=== PATIENT | male | born 1960 | race Caucasian/White ===

== ENCOUNTER → 2016-07-30 | Outpatient (CLI) | payer OTHER, BC ==
[~2016-07-30] MED LIST: ASPI-428 PO; ATOR-22 PO; BENZ100C18 PO; CANA1TAB3 PO; CARV12.52 PO; CRG125 PO; FERROUS SULFATE PO; FRRS300 PO; FURO20TA PO; IBUP-103 PO; INSDGI SC; INSDGIPEN SC; KETO10TA PO; LEVO-366 PO; LISI-725 PO; LPT/40 PO; LSX40 PO; METF-384 PO; MULT-618 PO; NTRGSL/4 UT; OXYC-57 PO; SPIR25TA PO; SPR25 PO
--- NOTE | 2016-07-30 15:44 | DIAGNOSTIC IMAGING REPORT ---
MRI OF THE LEFT SHOULDER CLINICAL HISTORY: Left shoulder pain. COMPARISON STUDY: Radiograph of left shoulder dated 07/25/2016. TECHNIQUE: MRI of the left shoulder was performed utilizing various T1 and T2 weighted sequences in the axial, sagittal, coronal planes. IV contrast was not administered for this examination. FINDINGS: Rotator cuff: There is tendinopathy with full-thickness rupture and retraction of the supraspinatus tendon. The tendon is retracted by approximately 5 cm. There is also full-thickness rupture with retraction of the infraspinatus tendon. There is tendinopathy with high-grade partial-thickness tearing of the subscapularis tendon. No definite full-thickness tear is seen. The teres minor tendon is Intact. There is subacromial and subdeltoid bursal fluid. Productive degenerative change is seen at the acromioclavicular joint. Biceps tendon: There is tendinopathy with rupture of the long head of the biceps tendon which is not well-visualized. This may be medially dislocated. Labrum: There is degenerative circumferential tearing of the labrum. Shoulder joint: There is a small joint effusion. Arthritic change with mild marrow edema is seen in the greater tuberosity of the humeral head. The humeral head is superiorly subluxed. There is only mild degenerative thinning of the articular cartilage of the superior glenoid. Musculature and soft tissues: There is mild intramuscular edema seen within the bodies of teres minor, and for spine on this, an supraspinatous. No definite atrophy is seen. IMPRESSION: 1. There is full-thickness rupture with approximately 5 cm of retraction involving the supraspinatous and infraspinatus tendons. There is associated superior subluxation of the humeral head. 2. There is high-grade partial-thickness tearing of the subscapularis tendon. 3. There is tendinopathy with rupture of the long head of the biceps tendon which may be dislocated. 4. There is circumferential degenerative labral tearing. 5. Arthritic change and joint effusion as above. 6. There is mild intramuscular edema involving the supraspinatous, infraspinatus, and teres minor. No definite atrophy is identified. Electronically signed by: Wallace Alexander M.D. 07/30/2016 3:42 PM Dictated Date/Time: 07/30/2016 3:26 PM
== END | disposition home or self-care (01) ==
LOC: C.MRIBC 14:08
DX: S46.012A Strain of muscle(s) and tendon(s) of the rotator cuff of left shoulder, initial encounter (principal); M66.822 Spontaneous rupture of other tendons, left upper arm; M75.92 Shoulder lesion, unspecified, left shoulder; X58.XXXA Exposure to other specified factors, initial encounter

== ENCOUNTER 2016-08-19 10:28 | Day surgery (SDC) | payer OTHER, BC ==
[2016-08-09 12:38] VITALS: BMI 34.0
--- NOTE | 2016-08-09 13:04 | PAT Medication Instructions ---
Service Date Aug 09, 2016. Current Home Medication List Aspirin (Ecotrin Low Strength), 81 MG PO QPM Atorvastatin (Lipitor), 40 MG PO QPM Canagliflozin (Invokana), 300 MG PO QAM Carvedilol (Coreg), 12.5 MG PO BID Furosemide (Lasix), 20 MG PO QAM Insulin Glargine (Lantus), 16 UNITS SC QPM Lisinopril (Zestril), 20 MG PO QAM Metformin Hcl (Glucophage), 1,000 MG PO BID Multiple Vitamins W/ Minerals (Centrum Silver Ultra Mens), 2 TABS PO QAM Nitroglycerin (Nitrostat), 0.4 MG UT PRN Spironolactone (Aldactone), 25 MG PO QAM [Ferrous Sulfate], 65 MG PO QAM Medication Instructions For Your Scheduled Surgery - Continue as directed: Nitroglycerin (Nitrostat), 0.4 MG UT PRN - Hold the following medications 48 hours prior to surgery: Metformin Hcl (Glucophage), 1,000 MG PO BID - Hold the following medications the morning of surgery: Spironolactone (Aldactone), 25 MG PO QAM [Ferrous Sulfate], 65 MG PO QAM Furosemide (Lasix), 20 MG PO QAM Lisinopril (Zestril), 20 MG PO QAM Multiple Vitamins W/ Minerals (Centrum Silver Ultra Mens), 2 TABS PO QAM Nitroglycerin (Nitrostat), 0.4 MG UT PRN Canagliflozin (Invokana), 300 MG PO QAM - Take the following medications the morning of surgery with a sip of water OTHERWISE NOTHING TO EAT OR DRINK AFTER MIDNIGHT: Carvedilol (Coreg), 12.5 MG PO BID - Take the following medications as scheduled the night before surgery: Aspirin (Ecotrin Low Strength), 81 MG PO QPM Insulin Glargine (Lantus), 16 UNITS SC QPM Atorvastatin (Lipitor), 40 MG PO QPM Carvedilol (Coreg), 12.5 MG PO BID If you have any questions please call us at [phone] or [phone] or [phone]
[2016-08-09 14:17] LABS: BASO % 0.3 %; BASO ABS # 0.03 K/uL (0-0.2); COMPLETE YES; EOS % 1.8 %; HEMATOCRIT 37.5 % (42-52); IG% 0.4 %; LYMPH % 22.6 %; LYMPH ABS # 2.16 K/uL (1.2-3.4); MEAN CELL VOLUME 87.6 fL (80-100); MEAN CORPUSCULAR HEMOGLOBIN 29.7 pg (25-34); MEAN CORPUSCULAR HGB CONC 33.9 g/dl (32-36); MEAN PLATELET VOLUME 9.5 fL (7.4-10.4); MONO % 9.4 %; NEUT % 65.5 %; PLATELET COUNT 217 K/uL (130-400); RED BLOOD COUNT 4.28 M/uL (4.7-6.1); WHITE BLOOD COUNT 9.57 K/uL (4.8-10.8)
[2016-08-09 14:31] LABS: PARTIAL THROMBOPLASTIN RATIO 1.1; PROTHROMBIN TIME (PATIENT) 10.8 SECONDS (9.0-12.0)
[2016-08-12 14:47] VITALS: BMI 34.0
[~2016-08-19] VITALS: Ht 185.4 cm; Wt 117.3 kg
--- NOTE | 2016-08-19 07:24 | HISTORY & PHYSICAL EXAMINATION ---
DATE OF ADMISSION: 08/19/2016 CHIEF COMPLAINT: Large left rotator cuff tear. 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 On 07/25/2016, he injured his left shoulder while at work. He said he felt a pop in his shoulder and having difficulty doing any forward elevation. He denies any shoulder pain or weakness prior to the work related incident. He reported the incident that had an MRI. The MRI showed a large retracted possibly chronic rotator cuff tear and he presented to my office for a rotator cuff repair. After examining him and talk with him, I felt it is reasonable to proceed with arthroscopic rotator cuff repair and possible superior capsular reconstruction. He understands the risks, benefits, alternatives to the procedure and has elected to proceed. PAST MEDICAL HISTORY: Significant for congestive heart failure, insulin-dependent diabetes, hyperlipidemia, Lyme's disease that was treated in 2003, and hypertension. PAST SURGICAL HISTORY: Denies. ALLERGIES: None. MEDICATIONS: Include metformin, insulin, lisinopril, spironolactone, aspirin, carvedilol, and Invokana. FAMILY HISTORY: Noncontributory. SOCIAL HISTORY: The patient is single and lives alone. He rarely drinks. He is very active. REVIEW OF SYSTEMS: He complains of left shoulder pain. All other pertinent review of systems are negative. PHYSICAL EXAMINATION: GENERAL: He is awake, alert and oriented x3. He is in no apparent distress. He is very pleasant. HEENT: Pupils equal, round and reactive to light. Extraocular motion intact. Oral mucosa is pink and moist. HEART: Regular rate per radial pulse. LUNGS: Katie symmetrically bilaterally with no audible breath sounds. ABDOMEN: Soft, nontender, nondistended. MUSCULOSKELETAL: Actively, he only has about 40 degrees of forward elevation and 40 degrees of abduction. He has 3/5 muscle strength with full can testing and 3/5 muscle strength with external rotation. Negative belly press test. Positive bear hug test. He has pain in the subacromial space. IMAGING DATA: MRI of the shoulder does show a large possibly chronic rotator cuff tear of the right shoulder. There is retraction back to the area of the glenoid. There is [id number] fat atrophy of supraspinatus and infraspinatus muscle bellies. There is also mild arthritis of the glenohumeral joint. X-rays of the shoulder do show the humeral head is fairly well centered within the glenoid. There is a small inferior humeral osteophyte indicative of mild arthritis. IMPRESSION: Large left rotator cuff tear. PLAN: We will do an arthroscopic rotator cuff repair versus superior capsular reconstruction. By the quality of the tissue, I will be able to tell whether this was an acute or more of a chronic injury or an acute on chronic injury. Postoperatively, he will be placed in an arm sling and discharged to home on oral pain medications.
[~2016-08-19 10:28] MED LIST changes: +ACETAMINOPHEN 500 MG TAB PO SCH; -ATOR-22 PO; -BENZ100C18 PO; +BUPIVACAINE 0.5 % 5 MG/1 ML PF 10ML VIAL ONE; +CEFAZOLIN 2000 MG/60 ML D5W 60 ML IV SCH; -CRG125 PO; +DEXAMETHASONE SOD INJ 4 MG/ML VIAL ONE; +FAMOTIDINE 20 MG TAB PO SCH; -FRRS300 PO; +GABAPENTIN 300 MG CAP PO SCH; -IBUP-103 PO; -INSDGIPEN SC; -KETO10TA PO; +LACTATED RINGER'S 1000ML 1,000 ML IV SCH; +LACTATED RINGER'S 1000ML IV SCH; -LEVO-366 PO; -LSX40 PO; -OXYC-57 PO; -SPR25 PO
[2016-08-19 11:18] VITALS: BP 141/96; PULSE 74; TEMP 36.6; O2SAT 97; Ht 185.4 cm; Wt 117.3 kg
[2016-08-19] MEDS ORDERED: BUPIVACAINE/EPINEPHRINE 0.5% MPF 1:200,000 30 ML VIAL ONE (11:32)
[2016-08-19] MEDS ORDERED: ROCURONIUM BROMIDE 10 MG/ML 5 ML VIAL ONE ×2 (11:46→13:35)
[2016-08-19] MEDS ORDERED: NEOSTIGMINE METHYLSULFATE 5 MG/5 ML SYR ONE (11:46)
[2016-08-19] MEDS ORDERED: DEXAMETHASONE SOD INJ 4 MG/ML VIAL ONE (11:46)
[2016-08-19] MEDS ORDERED: ONDANSETRON INJ 2 MG/ML 2 ML VIAL ONE (11:46)
[2016-08-19] MEDS ORDERED: GLYCOPYRROLATE INJ 0.2 MG/ML VIAL ONE (11:46)
[2016-08-19] MEDS ORDERED: LIDOCAINE HCL 2% 2 ML VIAL (20MG/ML) ONE (11:46)
[2016-08-19] MEDS ORDERED: PROPOFOL IV EMULSION 10 MG/ML 20 ML VIAL IV ONE (11:46)
[2016-08-19] MEDS ORDERED: MIDAZOLAM HCL 1 MG/ML 2ML VIAL ONE (11:47)
[2016-08-19] MEDS ORDERED: FENTANYL CITRATE INJ 50 MCG/1 ML 2 ML VIAL ONE (11:47)
[2016-08-19] MEDS ORDERED: BUPIVACAINE 0.25% 30 ML VIAL ONE (11:58)
--- NOTE | 2016-08-19 12:52 | History & Physical Bridge Note ---
H&P Re-Evaluation Bridge Note: I have examined the patient, reviewed the History & Physical and in the interval since the performance of the History & Physical I have noted the following changes of clinical significance: No changes noted
[2016-08-19] MEDS ORDERED: LARYING-O-JET KIT (LTA) EXT ONE ×2 (13:38)
[2016-08-19] MEDS ORDERED: ONDANSETRON INJ 2 MG/ML 2 ML VIAL IV PRN (13:45)
[2016-08-19] MEDS ORDERED: FENTANYL CITRATE INJ 50 MCG/1 ML 2 ML VIAL IV PRN (13:45)
[2016-08-19] MEDS ORDERED: ATROPINE SULFATE 0.1 MG/ML 5ML SYR IV PRN (13:45)
[2016-08-19] MEDS ORDERED: KETOROLAC TROMETHAMINE 30 MG/ML VIAL IV. PRN (13:45)
[2016-08-19] MEDS ORDERED: LABETALOL HCL IV 5 MG/ML 20ML IV PRN (13:45)
[2016-08-19] MEDS ORDERED: SODIUM CHLORIDE 0.9% 1000ML 1,000 ML IV SCH (15:35)
[2016-08-19] MEDS ORDERED: OXYC-57 PO (15:38)
[2016-08-19] MEDS ORDERED: KETO10TA PO (15:38)
--- NOTE | 2016-08-19 15:41 | Discharge Instructions ---
Discharge Instructions Admission Reason for Admission: Left Shoulder Full Thickness Rotator Cuff Tear Discharge Discharge Diagnosis / Problem: left shoulder rotator cuff tear Discharge Goals Goal(s): Decrease discomfort, Improve function, Therapeutic intervention Activity Recommendations Activity Limitations: per Instructions/Follow-up section limited use of left arm. sling x 6 weeks. no physical therapy yet Instructions / Follow-Up Instructions / Follow-Up MEDICATIONS: * Resume previous medications unless instructed otherwise by your surgeon. * Always take pain medication on a full stomach or with food to avoid upset stomach. * Do not drink alcohol or drive while taking narcotics. * Ibuprofen or Tylenol may be taken if narcotic not needed. no ibuprofen while taking toradol SPECIAL CARE INSTRUCTIONS: __ None _x_ Keep extremity iced x 48 hours; apply ice 20-30 minutes 8-10 times/day. May remove at night. __ Sling __24 hrs/day __ Remove at night _x_ Shoulder Immobilizer _x_ 24 hrs/day __ Remove at night _x_ Dressing __ Maintain until seen in office, may shower with plastic over site _x_ Remove dressings in 48 hours and then may shower _x_ Cover incisions with band-aids after showering __ Do not remove steri-strips Call physician if chills or temperature rises above 102 degrees or pain unrelieved by prescribed pain medications at . follow up in 2 week s . Current Hospital Diet Patient's current hospital diet: Discharge Diet Recommended Diet: Diabetes Type 2 Diet Procedures Procedures Performed: Left Shoulder Arthroscopy Large Rotator Cuff Repair,Chromioplasty. Pending Studies Studies pending at discharge: no Medical Emergencies . Who to Call and When: Medical Emergencies: If at any time you feel your situation is an emergency, please call 911 immediately. . Non-Emergent Contact Non-Emergency issues call your: Primary Care Provider, Surgeon . "Provider Documentation" section prepared by Jared Stockton. VTE Core Measure Inpt VTE Proph given/why not?: Treatment not indicated
[2016-08-19] MEDS ORDERED: OXYCODONE/ACETAMINOPHEN 5-325 TAB PO PRN ×2 (15:45)
--- NOTE | 2016-08-19 16:03 | Anesthesiology Progress Note ---
Anesthesia Post Op Note Date & Time Aug 19, 2016 at 16:03 Vital Signs Pain Intensity: 0 Vital Signs Past 12 Hours Date Time Temp Pulse Resp B/P Pulse Ox O2 Delivery O2 Flow Rate FiO2 08/19/16 15:31 36.5 74 16 125/76 100 Mask 10 08/19/16 11:18 36.6 74 18 141/96 97 Room Air Notes Mental Status: alert / awake / arousable, participated in evaluation Pt Amnestic to Procedure: Yes Nausea / Vomiting: adequately controlled Pain: adequately controlled Airway Patency, RR, SpO2: stable & adequate BP & HR: stable & adequate Hydration State: stable & adequate Anesthetic Complications: no major complications apparent
[2016-08-19 16:15] VITALS: BP 118/68; PULSE 62; TEMP 36.8; O2SAT 94
--- NOTE | 2016-08-19 16:18 | OPERATIVE REPORT ---
DATE OF OPERATION: 08/19/2016 PREOPERATIVE DIAGNOSIS: Acute on chronic rotator cuff tear of the left shoulder. POSTOPERATIVE DIAGNOSIS: Same. PROCEDURE: Left shoulder arthroscopy with extensive debridement, acromioplasty and rotator cuff repair. SURGEON: Dr. Marvin Macedo. LEARNING DESIGN SPECIALIST: Benjamin Stockton PA-C, whose assistance was necessary for positioning the arm and helping with instrumentation. ANESTHESIA: General with a left interscalene nerve block. COMPLICATIONS: None. CONDITION: Stable to PACU. INDICATIONS: Bennett is a pleasant 55-year-old male who was at work when he felt a pop in his left shoulder. He had significant pain and inability to raise his arm. He never had any shoulder pain before the incident. He came to my office. MRI and clinical examination were diagnostic for a large retracted rotator cuff tear. He elected to undergo arthroscopy. OPERATION AND FINDINGS: On 08/19/2016 he arrived at [facility] for the above procedure. He was seen in the preoperative holding area and the operative extremity was identified and signed. He was given a preoperative antibiotic, taken back to the operating room, laid on the table in supine position and put under general anesthesia. He was then put into the beachchair position. The left shoulder was prepped and draped in sterile fashion. Time-out was done and the patient and operative extremity was properly identified. A scope was introduced in the posterior portal. Diagnostic arthroscopy showed no cartilage damage to the humeral head or the glenoid. There was some fraying of the anterior labrum. The biceps tendon was absent from a traumatic tenotomy. There was a tear of the entire supraspinatus and infraspinatus. Teres minor and subscapularis were intact. A lateral portal was made and a shaver was used to start an extensive debridement of the subacromial and subdeltoid space. Cautery was used to tease the coracoacromial ligament off the undersurface of the acromion and a 5-0 chelsea was used to complete an acromioplasty of a Bigliani type 3 acromion. A shaver was used to remove any excess debris. Attention was turned to the rotator cuff. It was retracted back almost to the level of the glenoid. The tissue quality was still fairly good. I believe this was more of an acute on chronic tear. The infraspinatus came down to the tuberosity rather easily, but there was a lot of tension on the supraspinatus. The fact that there was no glenohumeral arthritis and the tissue quality was still fairly good makes me think it is more of an acute tear; however, the fact the supraspinatus was retracted and difficult to bring down makes me think that portion may have been a chronic tear. Two additional lateral portals were made and Ying cannulas were placed in each of the lateral portals. The greater tuberosity was repaired with a ring curette and a microfracture. The rotator cuff was then fixed with an Arthrex suspension bridge configuration with a 5.5 and 4.75 mm BioComposite SwiveLock suture anchors placed along the medial row. All anchors were loaded with 2 FiberWires and 2 FiberTapes. All sutures were passed through the tendon at the anticipator articular margin. A FiberTape from each anchor was brought down to 1 of 3 lateral row SwiveLock suture anchors. This gave a nice knotless suspension bridge repair. The remaining stay sutures were tied across anchor to each other to hold down the medial row. I was able to get an anatomic repair. Multiple pictures were taken. The scope was put back into the glenohumeral joint and the articular margin of the rotator cuff had been restored. Arthroscopic instruments were removed from the shoulder. Portal sites were closed with 3-0 nylon. He was then placed in a soft dressing and abduction arm sling. He was then extubated, transferred to a [facility] and taken to the postanesthesia care unit in stable condition. He tolerated the procedure well. I attest to the content of the Intraoperative Record and any orders documented therein. Any exceptio ns are noted below.
[2016-08-19 16:45] VITALS: BP 133/78; PULSE 63; TEMP 36.4; O2SAT 93
[2016-08-19 17:14] VITALS: BP 151/82; PULSE 69; TEMP 36.6; O2SAT 95
== END 2016-08-19 17:19 | disposition home or self-care (01) ==
LOC: C.ACU 10:28
PROVIDERS: ATTEND Orthopaedic Surgery
DX: S46.012A Strain of muscle(s) and tendon(s) of the rotator cuff of left shoulder, initial encounter (principal); X58.XXXA Exposure to other specified factors, initial encounter; Y99.0 Civilian activity done for income or pay; I50.9 Heart failure, unspecified; E10.9 Type 1 diabetes mellitus without complications; E78.5 Hyperlipidemia, unspecified; I10 Essential (primary) hypertension; Z86.19 Personal history of other infectious and parasitic diseases; E78.00 Pure hypercholesterolemia, unspecified; E66.9 Obesity, unspecified; K21.9 Gastro-esophageal reflux disease without esophagitis

== ENCOUNTER 2016-11-03 15:51 | Emergency (ER) | payer BC, OTHER ==
[~2016-11-03] VITALS: Ht 182.9 cm; Wt 116.3 kg
[~2016-11-03 15:51] MED LIST changes: -ACETAMINOPHEN 500 MG TAB PO SCH; -BUPIVACAINE 0.5 % 5 MG/1 ML PF 10ML VIAL ONE; -CEFAZOLIN 2000 MG/60 ML D5W 60 ML IV SCH; -DEXAMETHASONE SOD INJ 4 MG/ML VIAL ONE; -FAMOTIDINE 20 MG TAB PO SCH; -GABAPENTIN 300 MG CAP PO SCH; -LACTATED RINGER'S 1000ML 1,000 ML IV SCH; -LACTATED RINGER'S 1000ML IV SCH; +OXYC-57 PO
[2016-11-03 15:54] VITALS: TEMP 37.2; Ht 182.9 cm; Wt 116.3 kg
[2016-11-03] MEDS ORDERED: FRRS300 PO (16:16)
[2016-11-03 16:40] LABS: BASO % 0.4 %; BASO ABS # 0.03 K/uL (0-0.2); COMPLETE YES; EOS % 1.2 %; HEMATOCRIT 38.1 % (42-52); IG% 0.3 %; LYMPH % 16.3 %; LYMPH ABS # 1.13 K/uL (1.2-3.4); MEAN CORPUSCULAR HEMOGLOBIN 29.8 pg (25-34); MEAN CORPUSCULAR HGB CONC 33.9 g/dl (32-36); MEAN PLATELET VOLUME 9.5 fL (7.4-10.4); MONO % 14.8 %; PLATELET COUNT 203 K/uL (130-400); RED BLOOD COUNT 4.33 M/uL (4.7-6.1); WHITE BLOOD COUNT 6.94 K/uL (4.8-10.8)
[2016-11-03] MEDS ORDERED: HYDROCODONE/HOMATROPINE SYRUP 5MG/1.5MG 5ML UDP PO STA (16:57)
[2016-11-03] MEDS ORDERED: SODIUM CHLORIDE 0.9% 500ML 500 ML IV STA (16:57)
[2016-11-03 16:58] LABS: BUN/CREATININE RATIO 17.9 (10-20); CALCIUM 8.5 mg/dl (8.5-10.1); CREATININE 1.1 mg/dl (0.60-1.40); POTASSIUM 4.2 mmol/L (3.5-5.1)
--- NOTE | 2016-11-03 17:15 | DIAGNOSTIC IMAGING REPORT ---
CHEST 2 VIEWS ROUTINE CLINICAL HISTORY: Cough and shortness of breath. COMPARISON STUDY: Chest radiograph January 18, 2016. FINDINGS: Lung volumes are at the lower limits of normal. There is no consolidation or evidence of pulmonary edema. Cardiomediastinal silhouette is within normal limits. IMPRESSION: No acute cardiopulmonary findings. Electronically signed by: Kael Bryson M.D. 11/03/2016 5:13 PM Dictated Date/Time: 11/03/2016 5:12 PM
[2016-11-03 18:08] LABS: INFLUENZA A PCR Neg for Influ A (NEG); INFLUENZA B PCR Neg for Influ B (NEG)
[2016-11-03] MEDS ORDERED: LEVO-366 PO (18:32)
[2016-11-03] MEDS ORDERED: BENZ100C18 PO (18:34)
[2016-11-03 18:37] VITALS: BP 132/86; PULSE 96; O2SAT 96
[2016-11-03] MEDS ORDERED: LEVOFLOXACIN 250 MG TAB PO ONE (18:45)
--- NOTE | 2016-11-03 22:55 | EMERGENCY ROOM VISIT NOTE ---
History Report prepared by Claudia: Lyle Palmer Under the Supervision of: Dr. Reese Rivero D.O. First contact with patient: 15:57 Chief Complaint: ILLNESS Stated Complaint: CONGESTION, DIZZY, CHEST/BACK PAIN History of Present Illness The patient is a 56 year old male with a history of diabetes and CHF who presents to the Emergency Room with complaints of a persistent cough beginning four days prior to arrival. He currently rates his discomfort as a 6/10 in severity. The patient associates intermittent central chest pain, intermittent upper back pain, sorethroat, congestion, bilateral ear pain, intermittent lightheadedness, and intermittent shortness of breath with today's symptoms. He states his symptoms worsen with coughing. The patient notes his chest pain and back pain occurs only with coughing, twisting, and moving. He states his cough is productive with a sutton-renata sputum. The patient notes he saw his PCP yesterday , who did not perform a chest x-ray but was given amoxicillin and nasal spray. He denies a history of asthma, COPD, cancer, and blood clots. The patient notes he had a shoulder surgery in August. He denies being on blood thinners, recent travel, and experiencing recent weight gain. Pt denies headache, change in vision, fevers, nausea, vomiting, diarrhea, calve swelling, coughing up blood , recent trips, pain with urination, and melena. 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 Review of Systems See HPI for pertinent positives & negatives. A total of 10 systems reviewed and were otherwise negative. Past Medical & Surgical Medical Problems: (1) CHF (congestive heart failure) (2) DM (diabetes mellitus) (3) HTN (hypertension) (4) Lyme disease Surgical Problems: (1) History of colonoscopy (2) S/P shoulder surgery Family History Diabetes mellitus FH: heart disease Hypertension Social History Smoking Status: Never Smoker Alcohol Use: none Marital Status: single Housing Status: lives alone Occupation Status: employed Current/Historical Medications Scheduled Aspirin (Ecotrin Low Strength), 81 MG PO QAM Atorvastatin (Lipitor), 40 MG PO QAM Benzonatate (Tessalon Perles), 100 MG PO TID Canagliflozin (Invokana), 300 MG PO QAM Carvedilol (Coreg), 12.5 MG PO BID Ferrous Sulfate (Ferrous Sulfate), 325 MG PO QAM Furosemide (Lasix), 20 MG PO QPM Insulin Glargine (Lantus), 16 UNITS SC QPM Levofloxacin (Levaquin), 500 MG PO DAILY Lisinopril (Zestril), 20 MG PO QAM Metformin Hcl (Glucophage), 1,000 MG PO BID Multiple Vitamins W/ Minerals (Centrum Silver Ultra Mens), 2 TABS PO QAM Nitroglycerin (Nitrostat), 0.4 MG UT PRN Spironolactone (Aldactone), 25 MG PO QAM Scheduled PRN Oxycodone/Acetaminophen 5MG/325MG (Percocet 5MG/325MG), 1-2 TABLETS PO Q6 PRN for Pain Allergies Coded Allergies: No Known Allergies (Unverified , 11/03/16) Physical Exam Vital Signs Date Time Temp Pulse Resp B/P Pulse Ox O2 Delivery O2 Flow Rate FiO2 11/03/16 18:37 96 18 132/86 96 11/03/16 17:25 96 20 133/83 95 Room Air 11/03/16 16:39 102 11/03/16 16:37 Room Air 11/03/16 15:54 37.2 110 20 127/82 95 Room Air Physical Exam GENERAL: sitting up on the edge of bed, dry cough, alert, well appearing, well nourished, no distress, non-toxic EYE EXAM: normal conjunctiva, PERRL and EOM's grossly intact EAR EXAM: TMs clear bilaterally. OROPHARYNX: no exudate, no erythema, lips, buccal mucosa, and tongue normal and mucous membranes are moist NECK: supple, no nuchal rigidity, no adenopathy, non-tender LUNGS: Clear to auscultation. Normal chest wall mechanics HEART: no murmurs, S1 normal and S2 normal CHEST: Reproducible anterior chest wall tenderness on palpation and with twisting and turning. ABDOMEN: abdomen soft, non-tender, normo-active bowel sounds, no masses, no rebound or guarding. BACK: Bilateral thoracic paraspinal tenderness on palpation and with twisting and turning. Back is symmetrical on inspection and there is no deformity. SKIN: no rashes and no bruising UPPER EXTREMITIES: upper extremities are grossly normal. LOWER EXTREMITIES: No pitting edema. Calves are equal bilateral NEURO EXAM: Normal sensorium, cranial nerves II-XII grossly intact, normal speech, no gross weakness of arms, no gross weakness of legs. Medical Decision & Procedures ER Provider Diagnostic Interpretation: Radiology results as stated below per my review and the radiologist's interpretation: CHEST 2 VIEWS ROUTINE CLINICAL HISTORY: Cough and shortness of breath. COMPARISON STUDY: Chest radiograph January 18, 2016. FINDINGS: Lung volumes are at the lower limits of normal. There is no consolidation or evidence of pulmonary edema. Cardiomediastinal silhouette is within normal limits. IMPRESSION: No acute cardiopulmonary findings. Electronically signed by: Kael Bryson M.D. 11/03/2016 5:13 PM Laboratory Results 11/03/16 16:29 Red Blood Count 4.33, Mean Corpuscular Volume 88.0, Mean Corpuscular Hemoglobin 29.8, Mean Corpuscular Hemoglobin Concent 33.9, Mean Platelet Volume 9.5, Neutrophils (%) (Auto) 67.0, Lymphocytes (%) (Auto) 16.3, Monocytes (%) (Auto) 14.8, Eosinophils (%) (Auto) 1.2, Basophils (%) (Auto) 0.4, Neutrophils # (Auto ) 4.65, Lymphocytes # (Auto) 1.13, Monocytes # (Auto) 1.03, Eosinophils # (Auto ) 0.08, Basophils # (Auto) 0.03 11/03/16 16:29 Test 11/03/16 16:20 11/03/16 16:29 Influenza Type A (RT-PCR) Neg for Influ A (NEG) Influenza Type B (RT-PCR) Neg for Influ B (NEG) White Blood Count 6.94 K/uL (4.8-10.8) Red Blood Count 4.33 M/uL (4.7-6.1) Hemoglobin 12.9 g/dL (14.0-18.0) Hematocrit 38.1 % (42-52) Mean Corpuscular Volume 88.0 fL (80-100) Mean Corpuscular Hemoglobin 29.8 pg (25-34) Mean Corpuscular Hemoglobin Concent 33.9 g/dl (32-36) Platelet Count 203 K/uL (130-400) Mean Platelet Volume 9.5 fL (7.4-10.4) Neutrophils (%) (Auto) 67.0 % Lymphocytes (%) (Auto) 16.3 % Monocytes (%) (Auto) 14.8 % Eosinophils (%) (Auto) 1.2 % Basophils (%) (Auto) 0.4 % Neutrophils # (Auto) 4.65 K/uL (1.4-6.5) Lymphocytes # (Auto) 1.13 K/uL (1.2-3.4) Monocytes # (Auto) 1.03 K/uL (0.11-0.59) Eosinophils # (Auto) 0.08 K/uL (0-0.5) Basophils # (Auto) 0.03 K/uL (0-0.2) RDW Standard Deviation 44.2 fL (36.4-46.3) RDW Coefficient of Variation 13.5 % (11.5-14.5) Immature Granulocyte % (Auto) 0.3 % Immature Granulocyte # (Auto) 0.02 K/uL (0.00-0.02) Anion Gap 6.0 mmol/L (3-11) Est Creatinine Clear Calc Drug Dose 101.1 ml/min Estimated GFR () 87.7 Estimated GFR (Non- 75.7 BUN/Creatinine Ratio 17.9 (10-20) Calcium Level 8.5 mg/dl (8.5-10.1) Troponin I < 0.015 ng/ml (0-0.045) Laboratory results per my review. Medications Administered Medications (Trade) Dose Ordered Sig/Dwayne Route Start Time Stop Time Status Last Admin Dose Admin Sodium Chloride (Nss 500ml) 500 ml @ 999 mls/hr Q31M STAT IV 11/03/16 16:57 11/03/16 17:27 DC 11/03/16 17:22 999 MLS/HR Hydrocodone Bit/ Homatropine Methylb (Hycodan Syrup) 5 ml NOW STAT PO 11/03/16 16:57 11/03/16 16:58 DC 11/03/16 17:21 5 ML Levofloxacin (Levaquin Tab) 750 mg NOW ONCE PO 11/03/16 18:45 11/03/16 18:46 DC 11/03/16 18:48 750 MG ECG Indication: chest pain Rate (beats per minute): 102 Rhythm: sinus tachycardia Findings: LBBB, other (Depression in inferior and lateral leads) Comparison ECG Date: 01/18/2016 Change: no significant change ED Course ED COURSE: Vital signs were reviewed and showed tachycardia. The patients medical record was reviewed The above diagnostic studies were performed and reviewed. ED treatments and interventions as stated above. 1603: The patient was evaluated in room B3B. A complete history and physical examination was performed. 1657: Ordered Hycodan Syrup 5 ml PO, Sodium Chloride 500 ml @ 999 mls/hr IV. 165: Went to reevaluate the patient at this time, and he is over at x-ray. 184: Ordered Levofloxacin 750 mg PO. 184: Upon reevaluation, the patient is doing well.I discussed my findings with the patient and he understands and agrees with the treatment plan. I told him to not use his amoxicillin. Based on the patients age, coexisting illnesses, exam and lab findings the decision to treat as an outpatient was made. The patient remained stable while under my care. The patient appeared well at the time of discharge. Medical Decision Differential diagnoses includes but is not limited to pneumonia, bronchitis, COPD/Asthma exacerbation, pneumothorax, pulmonary embolism, congestive heart failure, acute coronary syndrome Patient is a 56-year-old male who presents the ER with a sore throat, runny nose green productive cough which is been present since Tuesday. He also admits to chest pain and back pain which is only present with coughing along with twisting and turning. He is a diabetic and has a history of CHF. No recent weight gain. Exam is completely reproducible. Chest x-ray shows no focal infiltrate. BMP was unremarkable along with LFTs and troponin. His pain is clearly reproducible. EKG was unchanged from previous with a left bundle branch block. Influenza A and B was negative. Patient was given a dose of Levaquin instructed to stop taking his amoxicillin. He was discharged with bronchitis instructed to follow up with his PCP. Discussed with Pt concerning signs and symptoms to watch out for. Pt was instructed to follow up with their PCP and discussed with the patient their option to return to the ED at anytime for persistent or worsening symptoms. The appropriate anticipatory guidance and out-patient management, including indications for return to the emergency department, were explained at length to the patient and understood. Impression Primary Impression: Acute bronchitis Scribe Attestation The scribe's documentation has been prepared under my direction and personally reviewed by me in its entirety. I confirm that the note above accurately reflects all work, treatment, procedures, and medical decision making performed by me. Departure Information Dispostion Home / Self-Care Prescriptions Benzonatate (TESSALON PERLES) 100 Mg Cap 100 MG PO TID, #30 CAP Prov: Reese Rivero, DO 11/03/16 Levofloxacin (Levaquin) 500 Mg Tab 500 MG PO DAILY for 9 Days, TAB Prov: Reese Rivero, DO 11/03/16 Referrals Dejan Steele M.D. (MEDICAL) (PCP) Forms HOME CARE DOCUMENTATION FORM, IMPORTANT VISIT INFORMATION, WORK / SCHOOL INSTRUCTIONS Patient Instructions ED Bronchitis Abx Tx, My [facility] Additional Instructions Please follow up with your primary care doctor with in the next 24 hours. Any worsening of your symptoms, please return to the ED immediately. This includes chest pain, shortness of breath, passing out, worsening of her symptoms or any other concerning signs or symptoms from your standpoint. Please take antibiotics as prescribed. Problem Qualifiers Primary Impression: Acute bronchitis Bronchitis organism: unspecified organism Qualified Codes: J20.9 - Acute bronchitis, unspecified
== END 2016-11-03 19:04 | disposition home or self-care (01) ==
LOC: C.EDB 15:52
DX: J20.9 Acute bronchitis, unspecified (principal); E11.9 Type 2 diabetes mellitus without complications; I10 Essential (primary) hypertension; I50.9 Heart failure, unspecified; Z98.890 Other specified postprocedural states; Z79.82 Long term (current) use of aspirin; Z79.4 Long term (current) use of insulin; Z79.84 Long term (current) use of oral hypoglycemic drugs; Z79.899 Other long term (current) drug therapy

== ENCOUNTER → 2017-01-12 | Outpatient (CLI) | payer BC ==
[~2017-01-12] MED LIST changes: -FERROUS SULFATE PO; +FRRS300 PO
== END | disposition home or self-care (01) ==
LOC: C.LABSPEC 14:52
PROVIDERS: ATTEND Podiatrist
DX: L97.511 Non-pressure chronic ulcer of other part of right foot limited to breakdown of skin (principal); L03.031 Cellulitis of right toe

== ENCOUNTER 2019-08-08 10:42 | Observation (INO) ==
[2019-08-08] MEDS ORDERED: BUPIVACAINE 0.5 % 5 MG/1 ML PF 10ML VIAL ONE (11:49)
[2019-08-08] MEDS ORDERED: BACITRACIN INJ 50,000 UNIT VIAL ONE (11:49)
[2019-08-08] MEDS ORDERED: LIDOCAINE HCL 1% 20 ML VIAL ONE (11:49)
[2019-08-08] MEDS ORDERED: MIDAZOLAM HCL 5 MG/ML 1 ML VIAL ONE ×2 (12:44→13:32)
[2019-08-08] MEDS ORDERED: CEFAZOLIN 250 MG/ML 1 GM VIAL ONE ×2 (12:44→13:07)
[2019-08-08] MEDS ORDERED: fentaNYL citrate 100 MCG/2 ML VIAL ONE ×3 (12:44→14:48)
--- NOTE | 2019-08-08 13:14 | History & Physical Bridge Note ---
Date of Service August 08, 2019 History & Physical Bridge Note I have examined the patient, reviewed the History & Physical and in the interval since the performance of the History & Physical I have noted the following changes of clinical significance: no changes noted
--- NOTE | 2019-08-08 13:15 | Pre Anesthesia Assessment ---
Date of Service August 08, 2019 Pre Sedation Assessment Vital Signs Temp Resp BP Pulse Ox 08/08/19 11:00 36.5 C 18 144/90 H 96 Cardiovascular RRR, no murmur, no edema Respiratory normal respiratory effort, lungs clear to auscultation Pre-Sedation Airway Assessment Smoking Status: Never smoker Hx Sleep Apnea: No Short, Thick Neck: No Thyromental Distance: > or= 3.5 Finger Breadths Oral Cavity: + WNL Mallampati Class: III ASA: ASA2 NPO Status Date of Last Intake of Fluids: 08/08/19 Time of Last Intake of Fluids: 07:00 Date of Last Intake of Solid Food: 08/07/19 Time of Last Intake of Solid Foods: 20:00 Procedure Planning Contraindications for Sedation: none Current Medications Reviewed: Yes Notes The planned sedation has been discussed with the patient. Informed Consent was obtained. I have identified the patient, determined the appropriateness of sedation and have assessed the patient immediately prior to the procedure. All medicine(s) and interventions are by my order.
[2019-08-08] MEDS ORDERED: MIDAZOLAM HCL 1 MG/ML 2ML VIAL ONE (14:48)
[2019-08-08] MEDS ORDERED: ACETAMINOPHEN 325 MG TAB PO PRN (15:23)
[2019-08-08] MEDS ORDERED: OXYCODONE/ACETAMINOPHEN 5mg/325mg TAB PO PRN (15:23)
--- NOTE | 2019-08-08 15:23 | Operative Report ---
Post Operative Report Pre & Post Diagnosis NICM, LBBB, chronic sysotlic HF-NYHA Class III Operation Date: 08/08/19 12:00 <No data on this case meets the specified criteria> I identified the patient and participated in the time-out.: Yes Procedure biv ICD Operation Date: 08/08/19 12:00 <No data on this case meets the specified criteria> Surgeon Perla Cardoza, DO Hedge Fund Accountant none Estimated Blood Loss 15 Findings Consistent with Post-Op Diagnosis Specimens none Description of Procedure see official report I attest to the content of the Intraoperative Record and any orders documented therein. Any exceptions are noted below.
--- NOTE | 2019-08-08 15:23 | Post Anesthesia Assessment ---
Date of Service August 08, 2019 Post Sedation Assessment Vital Signs Temp Resp BP Pulse Ox 08/08/19 11:00 36.5 C 18 144/90 H 96 Recovery Score Activity: Moves 4 extremities Respiration: Deep Breath/Cough Circulation: +/-20% PreAnes Value Consciousness: Fully Awake Oxygen Saturation: > 92% On Room Air Discharge Sedation Level of Care: Fast Track Phase II Post Sedation Plan On clinical assessment, the patient appears to have tolerated the sedation without complications. Patient is recovering as anticipated. Patient will continue to be monitored by nursing and may be discharged when sedation discharge criteria are met per below protocol. Upon Completions of procedure up to 15 minutes continue every 5 minute vital signs and the P.A.R. score; then discharge to a Phase I or Fast Track to Phase II per the following guidelines: * Discharge Patient to appropriate Phase II area if PAR is 8 or greater or return to pre- procedure baseline. The post - procedure orders will be as directed. * If PAR score is less than 8 or not return to pre-procedure baseline then patient will follow Phase I monitoring till PAR is reached for Phase II. The Phase I may be done in procedure room or may call to secure a Phase I area. * If naloxone or flumazenil are used for reversal, hold in Phase I for continued monitoring from when last reversal dose was given for a minimum of 60 minutes or longer pending the nurse and/or physician discretion of patient condition before discharge to Phase II. Please call the Sedation Physician to re-evaluate and complete post-note for discharge to Phase II area. Do NOT discharge from procedure sedation or Phase 1 until post- sedation evaluation note is complete by procedure /sedation MD Sedation Discharge Instructions to be given to the patient at discharge to home.
[2019-08-08] MEDS ORDERED: NITROGLYCERIN SL 0.4 MG/TAB TAB SL PRN (15:30)
--- NOTE | 2019-08-08 15:39 | Discharge Summary ---
Date of Service August 09, 2019 Admission HPI Per Admitting Provider Pt admitted for elective BiV ICD Admission Exam Per Admitting Provider aaox3, NAD NC/AT, EOMI Supple No JVD Nrl S1/S2, No murmur CTA b/l no w/r/r soft nt/nd no LE edema b/l skin intact no focal deficits Principal Diagnosis NICM s/p BiV ICD Discharge Exam aaox3, NAD NC/AT, EOMI Supple No JVD Nrl S1/S2, No murmur CTA b/l no w/r/r soft nt/nd no LE edema b/l skin intact no focal deficits left pectoral incision intact, no hematoma mild ecchymosis Discharge Data Allergies Allergy/AdvReac Type Severity Reaction Status Date / Time No Known Allergies Allergy Unverified 11/03/16 16:14 Procedures Performed Operation Date: 08/08/19 12:00 Actual Procedures p ICD Insertion Single or Dual - Perla Cardoza DO s Lead LV (No Priopr Implant) - Perla Cardoza DO Ordered Studies CXR: No PTX, leads in position ECG: -LV paced BIV ICD Interrogation: Normal function and stable lead testing since implant 08/08/19 06:45 EP Lab Images for PACS ONCE Hospital Course (1) NICM (nonischemic cardiomyopathy): Total Time Total Time Spent Total Time Spent (In Minutes): 35 Total Time Includes: Examination of the Patient, Discharge Planning, Medication Reconciliation and Other Discharge Plan Discharge Items Patient Disposition: Home - Self-Care Reason For Visit: BIV ICD Discharge Diagnosis: ICM s/p BiV ICD Condition on Discharge: Good Activity: As commented below Activity Comment: do not lift the left elbow over the left shoulder for 1 month Lifting: No more than 10 pounds Lifting Comment: do not lift more than 10 pounds with the left arm for 2 weeks Bathing: Keep incision dry Bathing Comment: Keep dressing on & dry until Tue08/15/2019 then can let water run over site Sexual Activity: After two weeks 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 Call non-emergency contact if: you have any medication questions Follow-up/Referrals: Beverly Spangler DO [Primary Care Provider] - Diet: Heart Healthy Addtl Attending Provider Instructions: Device and wound check as scheduled at [facility] next week Keep dressing on and dry until Tue08/15/2019 then can remove dressing and let water run over it If you notice any swelling or concerns at the site call my office immediately Pending Studies at Discharge: No Stand-Alone Forms: My [facility] Medications and DC Order Prescriptions: Continued Lisinopril (Zestril) 20 MG tablet 20 mg PO QAM Qty: 0 RF: 0 METFORMIN HCL (GLUCOPHAGE) 1,000 MG tablet 1,000 mg PO BID Qty: 0 RF: 0 ASPIRIN (ECOTRIN LOW STRENGTH) 81 MG tablet 81 mg PO QAM Qty: 0 RF: 0 MULTIPLE VITAMINS W/ MINERALS (CENTRUM SILVER ULTRA MENS) 1 TAB tablet 2 tabs PO QAM Qty: 0 RF: 0 Nitroglycerin (Nitrostat) 0.4 MG tablet 0.4 mg UT PRN Qty: 0 RF: 0 ATORVASTATIN (LIPITOR) 40 MG tablet 40 mg PO QAM Qty: 0 RF: 0 CANAGLIFLOZIN (INVOKANA) 300 MG tablet 300 mg PO QAM Qty: 0 RF: 0 FUROSEMIDE (LASIX) 20 MG tablet 20 mg PO QPM Qty: 0 RF: 0 Insulin Glargine (Lantus) 100 UNIT/ML INJECTION 16 unit SC QPM Qty: 0 RF: 0 Spironolactone (Aldactone) 25 MG tablet 25 mg PO QAM Qty: 0 RF: 0 CARVEDILOL (COREG) 12.5 MG tablet 12.5 mg PO BID Qty: 0 RF: 0 Ferrous Sulfate 325 MG tablet 325 mg PO QAM Qty: 0 RF: 0 Discharge Orders: Discharge Order (Routine); Ordered 08/09/19 Ordered By: Perla Cardoza Admission Data Admit Date/Time: 08/08/19 14:02 Attending Provider: Perla Cardoza Admit Provider: Perla Cardoza Primary Care Provider: Beverly Spangler
[2019-08-08] MEDS ORDERED: FUROSEMIDE 20 MG TAB PO SCH (17:00)
[2019-08-08] MEDS: METFORMIN HCL 500 MG TAB PO SCH (17:22)
--- NOTE | 2019-08-08 18:00 | Electrocardiogram Report ---
Test Reason : Blood Pressure : / mmHG Vent. Rate : 085 BPM Atrial Rate : 085 BPM P-R Int : 146 ms QRS Dur : 140 ms QT Int : 448 ms P-R-T Axes : 050 -72 082 degrees QTc Int : 533 ms Atrial-sensed ventricular-paced rhythm Abnormal ECG When compared with ECG of 03-NOV-2016 16:33, Electronic ventricular pacemaker has replaced Sinus rhythm Confirmed by Evan Cohen ([id number]) on 08/08/2019 6:00:12 PM Referred By: Perla Cardoza Confirmed By:Xu Cohen
[2019-08-08] MEDS: carvediloL 12.5 MG TAB PO SCH (20:15)
[2019-08-08] MEDS ORDERED: INSULIN GLARGINE SOLOSTAR 100 UNITS/ML 3 ML PEN SC SCH (21:00)
--- NOTE | 2019-08-09 02:37 | Operative Report ---
DATE OF OPERATION: 08/08/2019 PREOPERATIVE DIAGNOSES: Nonischemic cardiomyopathy, left bundle branch block, and chronic systolic heart failure, [place] Heart Association class 2. POSTOPERATIVE DIAGNOSES: Nonischemic cardiomyopathy, left bundle branch block, and chronic systolic heart failure, [place] Heart Association class 2. PROCEDURE: Biventricular rate responsive implantable cardiac defibrillator along with a peripheral venogram and a venogram of the coronary sinus under fluoroscopic guidance. SURGEON: Perla Cardoza DO ASSISTANTS: None. ANESTHESIA: Monitored conscious sedation administered under my supervision by Angle Little. Start time 1316, end time 1513. A total of 11 mg of Versed, 225 mcg of fentanyl. INTRAVENOUS FLUIDS: 50 mL. ANTIBIOTICS: 3 grams of Ancef. INTRAVENOUS CONTRAST: 20 mL. BLOOD LOSS: 15 mL. URINE OUTPUT: Not applicable. FINDINGS: See below. SPECIMENS: None. DRAINS: None. CONDITION: Stable. COMPLICATIONS: None. INDICATIONS: This is a 58-year-old gentleman with a past medical history for nonischemic cardiomyopathy that is progressively getting worse since 2013, over the years, it is now 25%, left bundle branch block, chronic systolic heart failure, [place] Heart Association class 2, coronary artery disease, nonobstructive disease, by catheterization in March 2014, diabetes, obesity, history of Lyme disease, history of the right lesser toe amputation. Due to the nonischemic cardiomyopathy, left bundle, and worsening heart failure, he was recommended a biventricular implantable cardiac defibrillator. CONSENT: Consent was obtained prior to the patient going into the electrophysiology lab. The patient was informed of the risks, benefits and alternatives to procedure. Risks include, but not limited to, sudden cardiac , cardiac arrhythmia, cerebrovascular accident, myocardial infarction, injury to the blood vessels, chamber of the heart, lung, bleeding, and infection. The patient understood these risks and agrees to the procedure as planned. Informed consent was obtained. DESCRIPTION OF THE PROCEDURE: The patient was brought into the electrophysiology lab in a fasting state. He was connected to continuous cardiac monitoring. A timeout was performed to ensure patient's identity and procedure correctly. The patient was prepped and draped over the left infraclavicular space in normal surgical standard fashion. Monitored conscious sedation was given throughout the procedure for patient's comfort level. Ambia precautions were maintained throughout the procedure. He received prophylactic antibiotics prior to incision. A 20 mL of 1% lidocaine and bupivacaine mixture were given within the left deltopectoral groove. Incision was made in the left deltopectoral groove. Blunt dissection was performed down to identify cephalic vein. The cephalic vein was identified and isolated using 0 silk ties. The vein was nicked with a 11-blade and two guidewires were inserted without any resistance. Then, a peripheral venogram was performed to identify the axillary vein. Axillary vein was accessed through a needlestick without any problems and a guidewire was inserted without any resistance. Then going back to the cephalic vein, a 9.5-Bangladeshi sheath was inserted over one of the guidewires. The guidewire and dilator were removed. Then the right ventricular lead was advanced into right ventricle and positioned into intraventricular apex under fluoroscopic guidance. There was adequate pacing and sensing thresholds and no diaphragmatic stimulation with high output pacing. The 9.5-Bangladeshi sheath was peeled away and the lead was fixated to pectoralis muscle using 0 silk suture. An 8-Bangladeshi sheath was inserted over the retained guidewire through the cephalic site. The dilator and guidewire were removed. The right atrial lead was then advanced into right atrium and positioned in the interatrial appendage under fluoroscopic guidance. There was adequate pacing and sensing thresholds and no diaphragmatic stimulation with high output pacing. The 8-Bangladeshi sheath was peeled away and the lead was fixated to pectoralis muscle using 0 silk suture. A 9.5-Bangladeshi sheath was then inserted over the wire that was through the axillary venous access and the guidewire and dilator were removed. Then, a Medtronic MPX outer coronary sinus sheath was advanced over a Glidewire into the right atrium. The Glidewire and dilator were removed. Then the coronary sinus was cannulated using the Biosense Decapolar EP diagnostic catheter and the MPX was advanced into the coronary sinus. Then a venogram of the coronary sinus was performed, it did show a branch that was a little bit higher up than I would like, but it did trend a little bit posterior lateral, so that was cannulated with a Whisper wire and then the lead nicely tracked over it. There was adequate pacing and sensing thresholds and no diaphragmatic stimulation with high output pacing. The MPX sheath was split away under fluoroscopic guidance and then the 9.5-Bangladeshi sheath was peeled. The lead was then fixated to the pectoralis muscle using 0 silk suture. There was adequate pacing and sensing thresholds and no diaphragmatic stimulation with high output pacing. There was some backbleeding from the cephalic venous site, so I did do a pursestring using a 2-[address] needle around this to stop that. A defibrillator pocket was created using blunt dissection over the pectoralis muscle within the pectoral fascia. The pocket was flushed with copious amounts of bacitracin and saline wash and inspected for hemostasis. The leads were then attached to the generator making sure that the pins were in appropriate position, passed set screw, and set screws were all tightened. The defibrillator was then placed in the pocket, making sure that the leads were lying flat beneath the device. Arleth stat was placed in the pocket and then the incision was closed in 3-layer fashion using 2-0 Vicryl interrupted suture followed by 3-0 Vicryl interrupted suture followed by 4-0 Monocryl running stitch, followed by Dermabond and Telfa and micropore dressing. EQUIPMENT: 1. The generator is a [employer] MRI Quad MOBILE DEVICE ENGINEER-D SureScan, [id number], serial #[id number]. 2. Right atrial lead, Medtronic 5076-52 cm, serial #[id number]. 3. Right ventricular lead, Medtronic 6935M-62 cm, serial #[id number]. 4. Left ventricular lead, Medtronic 4598-88 cm, serial #[id number]. INTRAOPERATIVE TESTIN. Right atrial lead: P waves 1.9 millivolts, impedance 666 ohms, threshold 0.4 volts at 0.5 milliseconds. 2. Right ventricular lead: R waves 17.9 millivolts, impedance 595 ohms, threshold 0.75 volts at 0.5 milliseconds. 3. Left ventricular lead, programmed LV1-LV2, impedance 781 ohms, threshold 1.35 volts at 0.5 milliseconds. FINAL MEASUREMENTS THROUGH THE DEVICE: 1. Right atrial lead: P waves 2.5 millivolts, impedance 437 ohms, threshold 0.5 volts at 0.4 milliseconds. 2. Right ventricular lead: R waves 20 millivolts, impedance 456 ohms, threshold 0.5 volts at 0.4 milliseconds. 3. The RV coil was 71 ohms. 4. The left ventricular lead programmed LV1-LV2, impedance 836 ohms, threshold 1 volt at 0.4 milliseconds. FINAL PARAMETERS: DDDR 60/130, right atrial and right ventricular amplitude 3.5 volts, pulse width 0.4 milliseconds, sensitivity 0.3 millivolts. Left ventricular amplitude 4 volts, pulse width 0.4 milliseconds. A VT monitor zone at 140 beats per minute for 32 detection intervals, a VT zone at 167 beats per minute for 16 detection intervals, and a VF zone at 200 beats per minute for 30/40 detection intervals. IMPRESSION: Successful implantation of a biventricular rate responsive implantable cardiac defibrillator along with peripheral venogram and a venogram of the coronary sinus under fluoroscopic guidance secondary to nonischemic cardiomyopathy, left bundle branch block, and chronic systolic heart failure, [place] Heart Association class 2. PLAN: Monitor patient overnight, 12-lead ECG, chest x-ray. He is not allowed to lift left elbow or left shoulder for 1 month. He cannot lift more than 10 pounds with the left arm for 2 weeks. He is to leave the dressing on and dry for 1 week's time. Then he can remove it and shower and let water run over the incision. He will follow up in our [facility] office for device and wound check as scheduled. He can continue his home medications and should continue to follow with general cardiology as scheduled. I attest to the content of the Intraoperative Record and any orders documented therein. Any exceptions are noted below. JOSE M
--- NOTE | 2019-08-09 06:34 | XRay Report ---
XR chest 2V PA/lateral CLINICAL HISTORY: post biv icd pre- COMPARISON STUDY: 01/18/2016 FINDINGS: Interval placement of a bipolar cardiac pacemaker/defibrillator. Leads are in good position . Lungs are clear. No evidence for pneumothorax. IMPRESSION: No acute process post bipolar cardiac pacemaker/defibrillator placement. ACT 112: Negative or not required by law. The above report was generated using voice recognition software. It may contain grammatical, syntax or spelling errors. Electronically signed by: Gunner Fletcher M.D. 08/09/2019 6:33 AM
[2019-08-09] MEDS: carvediloL 12.5 MG TAB PO SCH (07:25)
[2019-08-09] MEDS: METFORMIN HCL 500 MG TAB PO SCH (07:26)
[2019-08-09] MEDS ORDERED: lisinopriL 20 MG TAB PO SCH (09:00)
[2019-08-09] MEDS ORDERED: SPIRONOLACTONE 25 MG TAB PO SCH (09:00)
[2019-08-09] MEDS ORDERED: ATORVASTATIN 40 MG TAB PO SCH (09:00)
[2019-08-09] MEDS ORDERED: FERROUS SULFATE 325 MG TAB PO SCH (09:00)
[2019-08-09] MEDS ORDERED: ASPIRIN 81 MG ECTAB PO SCH (09:00)
[2019-08-09] MEDS ORDERED: MULTIVITAMIN TAB PO SCH (09:00)
== END 2019-08-09 08:58 | disposition home or self-care (01) ==
LOC: 2S 10:42 → EP 10:42
PROC: EPB.ICD (2019-08-08 12:00)

== ENCOUNTER 2019-11-26 10:08 | Inpatient (IN) ==
[2019-11-26 10:33] LABS: Basophils # (auto) 0.01 K/uL (0-0.2); Basophils % (auto) 0.1 %; Hemoglobin 11.7 g/dL (14.0-18.0); Immature Granulocytes # (auto) 0.08 K/uL (0.00-0.02); Immature Granulocytes % (auto) 0.8 %; Lymphocytes # (auto) 0.35 K/uL (1.2-3.4); Lymphocytes % (auto) 3.5 %; Mean Corpuscular Hgb Conc 33.4 g/dL (32-36); Mean Corpuscular Volume 83.7 fL (80-100); Mean Platelet Volume 9.7 fL (7.4-10.4); Monocytes # (auto) 0.28 K/uL (0.11-0.59); Monocytes % (auto) 2.8 %; Neutrophils # (auto) 9.24 K/uL (1.4-6.5); Neutrophils % (auto) 92.8 %; Platelet Count 133 K/uL (130-400); RDW Coefficient of Variation 14.8 % (11.5-14.5); RDW Standard Deviation 45.5 fL (36.4-46.3); Red Blood Count 4.18 M/uL (4.7-6.1); White Blood Count 9.96 K/uL (4.8-10.8)
[2019-11-26] MEDS ORDERED: MoRPHine SULFATE 4 MG/ML 1 ML CARP\\VIAL IV STA (10:33)
[2019-11-26] MEDS ORDERED: ONDANSETRON INJ 2 MG/ML 2 ML VIAL IV STA (10:33)
[2019-11-26] MEDS ORDERED: SODIUM CHLORIDE 0.9% 1000ML 500 ML IV ONE (10:34)
--- NOTE | 2019-11-26 10:39 | Emergency Department Note ---
Impression & Plan Abdominal pain, NICM (nonischemic cardiomyopathy), Splenic infarct, Nausea and vomiting, Hyponatremia ED Provider Note NAME: VINCE MAGALLANES AGE: 59 SEX: M : 1960 ARRIVES VIA: Ambulance INFORMANT: Patient ED PROVIDER(S): Reese Rivero DO CHIEF COMPLAINT: Abdominal pain HPI: Patient is a 59-year-old male that presents the ER for periumbilical abdominal pain which he describes as a burning sensation. It radiates throughout his entire belly. Not as severe in the right upper quadrant. He admits to nausea and 6 episodes of vomiting today. He notes that he has been dry heaving. Denies any hematemesis. He also admits to 1 loose bowel movement today. Eating and drinking makes the pain worse. No previous belly surgeries. Still has his gallbladder and appendix. No other exacerbating or remitting factors. Symptoms started around 4 AM this morning. No chest pain or shortness of breath. No dysuria urgency or frequency. ROS: See above HPI for pertinent positives & negatives. A total of 10 systems reviewed and were otherwise negative. PAST MEDICAL HISTORY:See Below PAST SURGICAL HISTORY:See Below FAMILY HISTORY:See Below SOCIAL HISTORY:See Below HOME MEDICATIONS:See Below ALLERGIES:See Below VITALS:See Below PHYSICAL EXAMINATION: GENERAL: Sitting up in bed, alert, chronically ill-appearing, disheveled EYE EXAM: normal conjunctiva. OROPHARYNX: no exudate, no erythema, lips, buccal mucosa, and tongue normal and mucous membranes are moist NECK: supple, no nuchal rigidity, no adenopathy, non-tender LUNGS: Clear to auscultation. Normal chest wall mechanics HEART: no murmurs, S1 normal and S2 normal ABDOMEN: abdomen soft, minimal tenderness periumbilically, normo-active bowel sounds, no masses, no rebound or guarding. BACK: Back is symmetrical on inspection and there is no deformity, no midline tenderness, no CVA tenderness. SKIN: no rashes and no bruising UPPER EXTREMITIES: upper extremities are grossly normal. LOWER EXTREMITIES: No pitting edema. NEURO EXAM: Normal sensorium, cranial nerves II-XII grossly intact, normal speech, no gross weakness of arms, no gross weakness of legs. MEDICAL DECISION MAKING: Patient is a 59-year-old male with a past medical history of nonischemic cardiomyopathy, diabetes, CHF the presents the ER for abdominal pain periumbilically which is described as a burning. IV was established blood work was obtained and shows no significant leukocytosis but a mild anemia 11.7 thousand. BMP with a mild hyponatremia. Creatinine slightly elevated at 1.5. LFTs bilirubin and lipase was unremarkable. Troponin was detectable at 0.[address] but was still negative. [address] abdomen pelvis shows splenic infarcts associated with fluid around duodenum and bilateral pleural effusions. Patient was borderline hypoxic and I do favor the cause of this is CHF. Uncertain the true cause of the splenic infarcts at this time with otherwise unremarkable CT. We will hold on anticoagulation. Did discuss with general surgery and patient hospitalist and patient was admitted for further work-up. Triage Nursing notes reviewed. Prior medical records reviewed Vital Signs: reviewed and remarkable for tachycardic Differential diagnosis: Differential diagnoses includes but is not limited to gastritis, peptic ulcer disease, GERD, gallbladder disease, pancreatitis, small bowel obstruction, acute coronary syndrome, pericarditis, ischemic bowel, irritable bowel disease, irritable bowel syndrome, appendicitis, diverticulitis, malignancy, hernia, urinary tract infection, torsion, [/ectopic (if female)], perforation, trauma, infectious. ER treatment provided: See below Diagnostics interpreted by me: ECG: Atrial sensed ventricularly paced rate of [address] depressions and T WI in lead aVL Rhythm is now paced in comparison to 2014 EKG. Cardiac Monitoring: An order was placed for continuous cardiac monitoring. The monitor shows a rate of 111 with paced rhythm. Laboratory studies: As stated above and show below. Imaging studies: CT abdomen pelvis shows bilateral pleural effusions, splenic infarcts, and fluid around duodenum Consultation(s): [facility]RSE: Procedures: none Critical Care: None Past Med/Surg History Medical History (Updated 11/26/19 @ 16:20 by Reese Rivero DO) Diabetic neuropathy Dyslipidemia Injury of left shoulder (Inactive) 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 Lyme disease Splenic infarct (Acute) Work related injury (Inactive) Surgical History (Updated 11/26/19 @ 14:47 by Sury Mohamud PA-C) History of colonoscopy History of esophagogastroduodenoscopy (EGD) Presence of biventricular implantable cardioverter-defibrillator (ICD) Status post amputation of toe of right foot [place] teeth extracted Family History (Updated 11/26/19 @ 14:55 by Sury Mohamud PA-C) Father Heart disease Social History Preferred Language: Icelandic Communication Ability: Effective Picture Copyist Required: No Beliefs That Will Affect Care: None Current Living Situation: Alone Other Information That Helps Us Care for You: No Feels Safe at Home: Yes Safety Concerns: Feels Safe At This Time Smoking Status: Never smoker Hx Alcohol Use: No Hx Substance Use: No Allergies Allergies Allergy/AdvReac Type Severity Reaction Status Date / Time No Known Allergies Allergy Unverified 11/26/19 10:57 Home Meds Home Medications Medication Instructions Recorded Confirmed aspirin [Aspir-81] 81 mg PO QAM 11/26/19 11/26/19 atorvastatin 80 mg PO QAM 11/26/19 11/26/19 canagliflozin [Invokana] 300 mg PO QAM 11/26/19 11/26/19 dulaglutide [Trulicity] 1.5 mg SUBCUT MOLINA 11/26/19 11/26/19 furosemide 20 mg PO BID 11/26/19 11/26/19 insulin glargine [Lantus Solostar 20 unit SUBCUT HS 11/26/19 11/26/19 U-100 Insulin] metformin 1,000 mg PO BIDM 11/26/19 11/26/19 [id number]-[id number]-vit K-lycop 1 tab PO QAM 11/26/19 11/26/19 [Men's Multivitamin] nitroglycerin [Nitrostat] 0.4 mg SUBLINGUAL UD PRN 11/26/19 11/26/19 sacubitril-valsartan [Entresto] 1 tab PO BID 11/26/19 11/26/19 Results & Data (ED) Vital Signs Vital Signs - 24 hr 11/26/19 10:13 11/26/19 10:16 11/26/19 10:18 Temperature 36.8 C Temperature Source Oral Pulse Rate 117 H 119 H 118 H Pulse Rate from SpO2 Sensor 116 H 119 H Respiratory Rate 31 H 18 24 Respiratory Effort / Characteristics Non-Labored Spontaneous Respiratory Depth Normal Blood Pressure 130/80 130/80 Blood Pressure Mean 96 96 Pulse Oximetry 94 94 94 Oxygen Delivery Method Room Air Sepsis Recent Fever Within 48 Hours No Sepsis Action Taken by Nursing No Action Required 11/26/19 10:30 11/26/19 10:31 11/26/19 10:42 Temperature Temperature Source Pulse Rate 113 H 113 H 121 H Pulse Rate from SpO2 Sensor 107 H 111 H 121 H Respiratory Rate 21 26 H 22 Respiratory Effort / Characteristics Respiratory Depth Blood Pressure 126/81 131/79 Blood Pressure Mean 84 99 Pulse Oximetry 94 94 96 Oxygen Delivery Method Sepsis Recent Fever Within 48 Hours Sepsis Action Taken by Nursing 11/26/19 11:00 11/26/19 11:30 11/26/19 12:02 Temperature Temperature Source Pulse Rate 112 H 115 H 107 H Pulse Rate from SpO2 Sensor 111 H 107 H 107 H Respiratory Rate 29 H 28 H 30 H Respiratory Effort / Characteristics Respiratory Depth Blood Pressure 136/77 115/83 117/78 Blood Pressure Mean 101 90 94 Pulse Oximetry 97 96 98 Oxygen Delivery Method Sepsis Recent Fever Within 48 Hours Sepsis Action Taken by Nursing 11/26/19 12:30 11/26/19 13:00 11/26/19 13:30 Temperature Temperature Source Pulse Rate 109 H 111 H 105 H Pulse Rate from SpO2 Sensor 109 H 111 H 104 H Respiratory Rate 26 H 31 H 27 H Respiratory Effort / Characteristics Respiratory Depth Blood Pressure 112/65 124/65 126/65 Blood Pressure Mean 82 90 74 Pulse Oximetry 96 96 91 Oxygen Delivery Method Sepsis Recent Fever Within 48 Hours Sepsis Action Taken by Nursing Laboratory Data Result diagrams: 11/26/19 10:20 11/26/19 10:20 Lab Results 11/26/19 11/26/19 11/26/19 Range/Units 10:20 10:20 10:20 WBC 9.96 (4.8-10.8) K/uL RBC 4.18 L (4.7-6.1) M/uL Hgb 11.7 L (14.0-18.0) g/dL Hct 35.0 L (42-52) % MCV 83.7 (80-100) fL MCH 28.0 (25-34) pg MCHC 33.4 (32-36) g/dL RDW Std Deviation 45.5 (36.4-46.3) fL RDW Coeff of Cristela 14.8 H (11.5-14.5) % Plt Count 133 (130-400) K/uL MPV 9.7 (7.4-10.4) fL Immature Gran % (Auto) 0.8 % Neut % (Auto) 92.8 % Lymph % (Auto) 3.5 % [place] % (Auto) 2.8 % Eos % (Auto) 0.0 % Baso % (Auto) 0.1 % Immature Gran # (Auto) 0.08 H (0.00-0.02) K/uL Neut # (Auto) 9.24 H (1.4-6.5) K/uL Lymph # (Auto) 0.35 L (1.2-3.4) K/uL [place] # (Auto) 0.28 (0.11-0.59) K/uL Eos # (Auto) 0.00 (0-0.5) K/uL Baso # (Auto) 0.01 (0-0.2) K/uL Sodium 130 L (136-145) mmol/L Potassium 3.9 (3.5-5.1) mmol/L Chloride 97 L (98-107) mmol/L Carbon Dioxide 21 (21-32) mmol/L Anion Gap 13.0 H (3-11) BUN 45 H (7-18) mg/dl Creatinine 1.53 H (0.6-1.4) mg/dl Est Cr Clr Drug Dosing 72.2 ml/min Est GFR ( Amer) 57.7 Est GFR (Non-Af Amer) 49.7 BUN/Creatinine Ratio 29.3 H (10-20) Glucose 243 H (70-99) mg/dl Calcium 8.4 L (8.5-10.1) mg/dl Total Bilirubin 0.8 (0.2-1) mg/dl AST 47 H (15-37) U/L ALT 53 (12-78) U/L Alkaline Phosphatase 104 (45-117) U/L Troponin I (0-0.045) ng/ml Total Protein 6.7 (6.4-8.2) gm/dl Albumin 2.1 L (3.4-5.0) gm/dl Globulin 4.6 H (2.5-4.0) gm/dl Albumin/Globulin Ratio 0.5 L (0.9-2) Lipase 66 L (73-393) U/L Hepatitis C Ab Screen Neg (Neg) Monoscreen (Negative) 11/26/19 11/26/19 Range/Units 10:20 12:58 WBC (4.8-10.8) K/uL RBC (4.7-6.1) M/uL Hgb (14.0-18.0) g/dL Hct (42-52) % MCV (80-100) fL MCH (25-34) pg MCHC (32-36) g/dL RDW Std Deviation (36.4-46.3) fL RDW Coeff of Cristela (11.5-14.5) % Plt Count (130-400) K/uL MPV (7.4-10.4) fL Immature Gran % (Auto) % Neut % (Auto) % Lymph % (Auto) % [place] % (Auto) % Eos % (Auto) % Baso % (Auto) % Immature Gran # (Auto) (0.00-0.02) K/uL Neut # (Auto) (1.4-6.5) K/uL Lymph # (Auto) (1.2-3.4) K/uL [place] # (Auto) (0.11-0.59) K/uL Eos # (Auto) (0-0.5) K/uL Baso # (Auto) (0-0.2) K/uL Sodium (136-145) mmol/L Potassium (3.5-5.1) mmol/L Chloride (98-107) mmol/L Carbon Dioxide (21-32) mmol/L Anion Gap (3-11) BUN (7-18) mg/dl Creatinine (0.6-1.4) mg/dl Est Cr Clr Drug Dosing ml/min Est GFR ( Amer) Est GFR (Non-Af Amer) BUN/Creatinine Ratio (10-20) Glucose (70-99) mg/dl Calcium (8.5-10.1) mg/dl Total Bilirubin (0.2-1) mg/dl AST (15-37) U/L ALT (12-78) U/L Alkaline Phosphatase (45-117) U/L Troponin I 0.016 (0-0.045) ng/ml Total Protein (6.4-8.2) gm/dl Albumin (3.4-5.0) gm/dl Globulin (2.5-4.0) gm/dl Albumin/Globulin Ratio (0.9-2) Lipase (73-393) U/L Hepatitis C Ab Screen (Neg) Monoscreen Negative (Negative) Administered Medications Discontinued Medications Al Hydrox/Mg Hydrox/Simethicone () 1 dose PO ONE ONE Stop: 11/26/19 12:41 Last Admin: 11/26/19 13:11 Dose: 1 dose Documented by: [id number] Sodium Chloride (Nss 1000ml) 500 mls @ 999 mls/hr IV .Q31M ONE Stop: 11/26/19 11:04 Last Infusion: 11/26/19 11:17 Dose: 0 mls/hr Documented by: [id number] Admin: 11/26/19 10:45 Dose: 999 mls/hr Documented by: [id number] Famotidine (Pepcid 20mg Iv Push) 20 mg in 5 mls @ 2.5 mls/min IV NOW STA Stop: 11/26/19 12:41 Last Admin: 11/26/19 13:11 Dose: 2.5 mls/min Documented by: [id number] Ioversol (Optiray 320 100ml) 94 ml IV ONCE PRN PRN Reason: Interaction Checking Stop: 11/30/19 11:43 Last Admin: 11/26/19 11:44 Dose: 94 ml Documented by: [id number] Morphine Sulfate (Morphine Sulfate) 4 mg IV NOW STA Stop: 11/26/19 10:34 Last Admin: 11/26/19 10:44 Dose: 4 mg Documented by: [id number] Ondansetron HCl (Zofran) 4 mg IV NOW STA Stop: 11/26/19 10:34 Last Admin: 11/26/19 10:44 Dose: 4 mg Documented by: [id number] Discharge Plan Visit Data *Final* Discharge Date/Time: 11/26/19 15:18 Chief Complaint: Abdominal Pain ED Provider: Reese Rivero Discharge Problem: Abdominal pain, NICM (nonischemic cardiomyopathy), Splenic infarct, Nausea and vomiting, Hyponatremia Patient Disposition: Admitted As Inpatient Discharge Instructions Interventions: ED Discharge Assessment Last Done: 11/26/19 15:18 Discharge Problem: Abdominal pain Qualifiers: Abdominal location: unspecified location Qualified Code(s): R10.9 - Unspecified abdominal pain Nausea and vomiting Qualifiers: Vomiting type: unspecified Vomiting Intractability: unspecified Qualified Code(s): R11.2 - Nausea with vomiting, unspecified
[2019-11-26 10:49] LABS: Albumin Level 2.1 gm/dl (3.4-5.0); BUN Creatinine Ratio 29.3 (10-20); Calcium 8.4 mg/dl (8.5-10.1); Creatinine Clr Calc Pharmacy 72.2 ml/min; Est GFR (African American) 57.7; Est GFR (Non-African American) 49.7; Potassium 3.9 mmol/L (3.5-5.1)
[2019-11-26 10:52] LABS: Albumin Globulin Ratio 0.5 (0.9-2); Bilirubin,Total 0.8 mg/dl (0.2-1); Globulin 4.6 gm/dl (2.5-4.0); Total Protein 6.7 gm/dl (6.4-8.2)
[2019-11-26] MEDS ORDERED: IOVERSOL 100ml IV PRN (11:44)
--- NOTE | 2019-11-26 12:09 | CT Scan Report ---
CT OF THE ABDOMEN AND PELVIS WITH CONTRAST CLINICAL HISTORY: Periumbilical abdominal pain. COMPARISON STUDY: None. TECHNIQUE: Following IV administration of 94 mL of Optiray-320, axial images of the abdomen and pelvi s were obtained from the lung bases to the proximal femurs. Images were reviewed in the axial, sagitt al, and coronal planes. IV contrast was administered without complication. Automated exposure contro l was utilized for the study. A dose lowering technique was utilized adhering to the principles of A DOMINICK. CT DOSE: 1117.17 mGycm FINDINGS: Imaged portions of the lower chest partially visualize pacer leads. There are trace bilater al pleural effusions. No pneumatosis, free air or portal venous gas is present. No hepatic lesions ar e identified. Liver surface is slightly lobulated. There is no biliary or pancreatic ductal dilatatio n. Moderate pancreatic glandular atrophy is noted. There is no peripancreatic infiltration. There are multiple small peripheral hypodensities within the spleen that measure up to 1.8 cm. The adrenal gla nds are unremarkable. There are bilateral renal parapelvic cysts. Mild symmetric bilateral perinephri c infiltration is noted. There is minimal fluid/infiltration adjacent to the third portion of the duo denum. There is no evidence for a bowel obstruction. No lymphadenopathy is present. The appendix is n ormal. Bladder is mildly distended. There are no suspicious osseous lesions. Major vasculature is pat ent. IMPRESSION: 1. Multiple small peripheral hypodensities within the spleen that measure up to 1.8 cm. These favor s mall age indeterminate splenic infarcts. 2. Mild fluid adjacent to the third portion of the duodenum. This is likely due to volume overload a lthough duodenitis could appear similar. 3. Moderate pancreatic glandular atrophy. 4. Trace bilateral pleural effusions. ACT 112: Negative or not required by law. Electronically signed by: Kael Bryson M.D. 11/26/2019 12:08 PM
[2019-11-26] MEDS ORDERED: GI COCKTAIL ED USE PO ONE (12:40)
[2019-11-26] MEDS ORDERED: FAMOTIDINE 20MG IV PUSH 20 MG/5 ML SYR IV STA (12:40)
--- NOTE | 2019-11-26 14:08 | History & Physical Report ---
Date of Service November 26, 2019 Assessment & Plan (1) Splenic infarct: (2) Duodenitis: (3) Nausea and vomiting: (4) Diarrhea: (5) Hyponatremia: Patient presenting to the ED with abdominal pain, & N/V/D. CT of abd/pelvis showed possible splenic infarcts and possible duodenitis vs. volume overload. Admit to Tele Patient had morphine and Zofran in the ED which helped symptoms slightly. GI cocktail given in ED as well which did not help pain much. Continue Tylenol PRN mild pain, Oxycodone PRN moderate pain, Dilaudid PRN severe pain. Zofran PRN nausea/vomiting. Because of limited PO intake, start D5W 1/2 NSS. Diabetic diet for now. NPO after midnight. General Surgery and GI consults. Uncertain etiology of splenic infarcts at this time. Blood cultures ordered. Urine studies pending. [place] sent and negative. Start empiric abx pending blood cultures. Check coag studies. Recheck BMP this evening and recheck BMP, CBCD in AM (6) NICM (nonischemic cardiomyopathy): (7) CHF (congestive heart failure): Patient with chronic heart failure and s/p ICD placement in July 2019. Echo completed last week as an outpatient. Seems unlikely to be source of infarcts. Will wait to see what Gen Surg thinks. EKG completed in ED no new changes. Continue tele Troponin negative (8) DM (diabetes mellitus): Insulin protocol Check A1C & lipids in AM (9) HTN (hypertension): Continue home meds (10) DVT prophylaxis: SCDs History of Present Illness Chief Complaint: Abdominal pain, N/V, Splenic infarcts Primary Care Provider: Beverly Spangler DO Patient is a 59 yo obese male who presented to the ED with abdominal pain and intractable N/V. 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 He started to have pain in his mid & right abdomen while he was at work Tuesday morning. 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 No recent history of any injury or trauma. He continued to have pain yesterday which became worse throughout the day. He started to have N/V and increased pain early this mor ashley. He hasn't eaten anything for about 12 hours and hasn't had any vomiting this morning. He continues to have nausea and abdominal pain though. The pain is burning in nature. He has had retching today and did have 1 episode of diarrhea this morning. Eating and drinking makes the pain worse which is why he hasn't been eating today. No hx of abdominal surgeries. He did have an outpatient Echo completed on 11/21/19 which showed EF 40% which was actually improved after placement of ICD. LV thickness was slightly increased, and Mild MR was noted. No other valvular disease noted. He does not have history of AFib. He does take 81 mg ASA daily. No recent infections or trauma. No history of blood clots. Since presentation, patient was noted to have mild anemia with WBC count of 9.96. Slight neutrophilia. Sodium 130, potassium 97, Creatinine 1.5. Troponin negative. Lipase normal. CT Abd/Pelvis showed multiple small peripheral hypodensities within the spleen measuring up to 1.8 m. Possible small splenic infarcts. Mild fluid adjacent to the duodenum- possible duodenitis versus volume overload. Allergies Allergy/AdvReac Type Severity Reaction Status Date / Time No Known Allergies Allergy Unverified 11/26/19 10:57 Home Medications Home Medications Medication Instructions Recorded Confirmed Type aspirin [Aspir-81] 81 mg PO QAM 11/26/19 11/26/19 History atorvastatin 80 mg PO QAM 11/26/19 11/26/19 History canagliflozin [Invokana] 300 mg PO QAM 11/26/19 11/26/19 History dulaglutide [Trulicity] 1.5 mg SUBCUT MOLINA 11/26/19 11/26/19 History furosemide 20 mg PO BID 11/26/19 11/26/19 History insulin glargine [Lantus Solostar 20 unit SUBCUT HS 11/26/19 11/26/19 History U-100 Insulin] metformin 1,000 mg PO BIDM 11/26/19 11/26/19 History hjtcfckh-xwq-znqip-vit K-lycop 1 tab PO QAM 11/26/19 11/26/19 History [Men's Multivitamin] nitroglycerin [Nitrostat] 0.4 mg SUBLINGUAL UD PRN 11/26/19 11/26/19 History sacubitril-valsartan [Entresto] 1 tab PO BID 11/26/19 11/26/19 History Past Med/Surg History Medical History (Updated 11/26/19 @ 14:44 by Sury Mohamud PA-C) Diabetic neuropathy Dyslipidemia Injury of left shoulder (Inactive) 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 Lyme disease Splenic infarct Work related injury (Inactive) Surgical History (Updated 11/26/19 @ 14:47 by Sury Mohamud PA-C) History of colonoscopy History of esophagogastroduodenoscopy (EGD) Presence of biventricular implantable cardioverter-defibrillator (ICD) Status post amputation of toe of right foot [place] teeth extracted Family History (Updated 11/26/19 @ 14:55 by Sury Mohamud PA-C) Father Heart disease Social History Preferred Language: Somali Communication Ability: Effective Network Control Operators Supervisor Required: No Beliefs That Will Affect Care: None Current Living Situation: Alone Other Information That Helps Us Care for You: No Feels Safe at Home: Yes Safety Concerns: Feels Safe At This Time Smoking Status: Never smoker Hx Alcohol Use: No Hx Substance Use: No Review of Systems Review of Systems: All systems reviewed & are unremarkable except as noted in HPI & below Physical Exam Constitutional: + obese; no acute distress and not ill appearing Eyes: PERRL, conjunctivae normal, anicteric sclerae ENMT: external ear and nose normal, oropharynx normal Neck: trachea midline, no thyromegaly Respiratory: normal respiratory effort, lungs clear to auscultation Cardiovascular: Rate/Rhythm: regular rate and regular rhythm Gastrointestinal (Abdomen): Inspection/Auscultation: normal bowel sounds Percussion/Palpation: + abdomen tender (periumbilical and right quadrants especially. Generalized tenderness) and abdomen soft; no guarding and abdomen not rigid Musculoskeletal: B/L LE trace edema Skin: no rashes, warm and dry Neurologic: CN's II-XI intact bilaterally Psychiatric: A+Ox3, euthymic affect Results & Data Results & Data ([facility]) Vital Signs (Past 12 Hours) Vital Signs Temp Pulse Resp BP Pulse Ox 11/26/19 13:30 105 H 27 H 126/65 91 11/26/19 13:00 111 H 31 H 124/65 96 11/26/19 12:30 109 H 26 H 112/65 96 11/26/19 12:02 107 H 30 H 117/78 98 11/26/19 11:30 115 H 28 H 115/83 96 11/26/19 11:00 112 H 29 H 136/77 97 11/26/19 10:42 121 H 22 131/79 96 11/26/19 10:31 113 H 26 H 94 11/26/19 10:30 113 H 21 126/81 94 11/26/19 10:18 36.8 C 118 H 24 130/80 94 11/26/19 10:16 119 H 18 94 11/26/19 10:13 117 H 31 H 130/80 94 Laboratory Results Laboratory Results - last 24 hr 11/26/19 11/26/19 11/26/19 10:20 10:20 10:20 WBC 9.96 RBC 4.18 L Hgb 11.7 L Hct 35.0 L MCV 83.7 MCH 28.0 MCHC 33.4 RDW Std Deviation 45.5 RDW Coeff of Cristela 14.8 H Plt Count 133 MPV 9.7 Immature Gran % (Auto) 0.8 Neut % (Auto) 92.8 Lymph % (Auto) 3.5 [place] % (Auto) 2.8 Eos % (Auto) 0.0 Baso % (Auto) 0.1 Immature Gran # (Auto) 0.08 H Neut # (Auto) 9.24 H Lymph # (Auto) 0.35 L [place] # (Auto) 0.28 Eos # (Auto) 0.00 Baso # (Auto) 0.01 Sodium 130 L Potassium 3.9 Chloride 97 L Carbon Dioxide 21 Anion Gap 13.0 H BUN 45 H Creatinine 1.53 H Est Cr Clr Drug Dosing 72.2 Est GFR ( Amer) 57.7 Est GFR (Non-Af Amer) 49.7 BUN/Creatinine Ratio 29.3 H Glucose 243 H Calcium 8.4 L Total Bilirubin 0.8 AST 47 H ALT 53 Alkaline Phosphatase 104 Troponin I Total Protein 6.7 Albumin 2.1 L Globulin 4.6 H Albumin/Globulin Ratio 0.5 L Lipase 66 L Hepatitis C Ab Screen Pending Monoscreen 11/26/19 11/26/19 10:20 12:58 WBC RBC Hgb Hct MCV MCH MCHC RDW Std Deviation RDW Coeff of Cristela Plt Count MPV Immature Gran % (Auto) Neut % (Auto) Lymph % (Auto) [place] % (Auto) Eos % (Auto) Baso % (Auto) Immature Gran # (Auto) Neut # (Auto) Lymph # (Auto) [place] # (Auto) Eos # (Auto) Baso # (Auto) Sodium Potassium Chloride Carbon Dioxide Anion Gap BUN Creatinine Est Cr Clr Drug Dosing Est GFR ( Amer) Est GFR (Non-Af Amer) BUN/Creatinine Ratio Glucose Calcium Total Bilirubin AST ALT Alkaline Phosphatase Troponin I 0.016 Total Protein Albumin Globulin Albumin/Globulin Ratio Lipase Hepatitis C Ab Screen Monoscreen Negative Diagnostic Findings CT Abd/Pelvis: IMPRESSION: 1. Multiple small peripheral hypodensities within the spleen that measure up to 1.8 cm. These favor small age indeterminate splenic infarcts. 2. Mild fluid adjacent to the third portion of the duodenum. This is likely due to volume overload although duodenitis could appear similar. 3. Moderate pancreatic glandular atrophy. 4. Trace bilateral pleural effusions. Code Status & VTE Plan VTE Prophylaxis Plan VTE Prophylaxis will be ordered: Yes Supervising Physician Co-Signing Physician Notes I, Dr. Roberto Pérez, have seen and examined the patient Bennett Lopez with physician insurance administrative assistant and would like to comment that on Physical Exam General: speaks comfortably and in full sentences Heart: mild tachycardia Lung: clear to auscultation bilaterally, no wheezing Abdomen: soft, positive bowel sounds, tenderness to palpation of right side of abdomen Extremities: some bilateral leg edema ASSESSMENT AND PLAN -This is a patient with several days of poor oral intake and associated with vomiting and with right sided abdomen pain. Patient CT abdomen significant for Multiple small peripheral hypodensities within the spleen that measure up to 1.8 cm. These favor small age indeterminate splenic infarct (multiple Multiple small peripheral hypodensities within the spleen that measure up to 1.8 cm). There are some possibility for duodenitis as well. -will give IV fluids and anti-emetics, hyponatremia of serum sodium of 130 with anion gap of 13 likely from dehydration, trend the labs, trend renal function -pain medications with prn acetaminophen, prn oxycodone, prn dilaudid. Avoid NSAIDs. Hold home dose metformin. Give diabetic diet for now with sliding scale insulin and half of patients usual basal long acting insulin (but keep NPO after midnight in case any need for abdomen procedure) -request general surgery and gastroenterology consultation -check coagulation labs and maintain active type and screen -patient reports history of monoucleosis when younger but no recent sexual con tacts. check for mononucleosis -management of chronic cardiac conditions -agree with other assessment and plans as per physician insurance administrative assistant -My colleague will be taking over the care of the patient as hospitalist starting on 11/27/2019
[2019-11-26] MEDS ORDERED: PANTOprazole 40 MG in SYRINGE 0 ML IV STA (15:36)
[2019-11-26] MEDS ORDERED: ALUMINUM/MAGNESIUM SUSP 30 ML UDC PO PRN (16:15)
[2019-11-26] MEDS ORDERED: GLUCAGON FOR INJ 1 MG VIAL SQ PRN (16:15)
[2019-11-26] MEDS ORDERED: ACETAMINOPHEN 325 MG TAB PO PRN (16:15)
[2019-11-26] MEDS ORDERED: DEXTROSE 50% 50 ML SYRINGE IV PRN (16:15)
[2019-11-26] MEDS ORDERED: OXYCODONE HCL 5 MG/0.25 ML UDP PO PRN (16:15)
[2019-11-26] MEDS ORDERED: GLUCOSE 10 TABS/TUBE PO PRN (16:15)
[2019-11-26] MEDS ORDERED: CARBOHYDRATES FOR HYPOGLYCEMIA PO PRN (16:15)
[2019-11-26] MEDS ORDERED: GLUCOSE 40% GEL 15 GM TUBE PO PRN (16:15)
[2019-11-26] MEDS ORDERED: PIPERACILL/TAZOBAC CONSULT ACTIVE PRN (16:15)
--- NOTE | 2019-11-26 16:17 | Surgery Consultation ---
Date of Consultation November 26, 2019 Assessment & Plan (1) Nausea and vomiting: ? etiology. ? severe gastroenteritis. agree with GI consult/? EGD to evaluate the duodenum the splenic infarcts should not require any surgical intervention. likely old and doubt they are a part of this active process moderate to severe dehydration. rehydrate and symptom control. may consider stool cx's will follow along but doubt any surgical intervention will be needed. (2) Diarrhea: (3) Duodenitis: (4) Splenic infarct: (5) Dehydration: History of Present Illness Attending Physician: Roberto Pérez MD History of Present Illness pt with several days of peristent epigastric pain with severe n/v and diarrhea. the diarrhea and emesis have improved some but he is still having rather severe epigastric pain. CT reveals ? duodenitis and several small "age indeterminant" splenic infarcts. Allergies Allergy/AdvReac Type Severity Reaction Status Date / Time No Known Allergies Allergy Unverified 11/26/19 10:57 Home Medications Home Medications Medication Instructions Recorded Confirmed Type aspirin [Aspir-81] 81 mg PO QAM 11/26/19 11/26/19 History atorvastatin 80 mg PO QAM 11/26/19 11/26/19 History canagliflozin [Invokana] 300 mg PO QAM 11/26/19 11/26/19 History dulaglutide [Trulicity] 1.5 mg SUBCUT MOLINA 11/26/19 11/26/19 History furosemide 20 mg PO BID 11/26/19 11/26/19 History insulin glargine [Lantus Solostar 20 unit SUBCUT HS 11/26/19 11/26/19 History U-100 Insulin] metformin 1,000 mg PO BIDM 11/26/19 11/26/19 History oczjriof-lym-ofpeb-vit K-lycop 1 tab PO QAM 11/26/19 11/26/19 History [Men's Multivitamin] nitroglycerin [Nitrostat] 0.4 mg SUBLINGUAL UD PRN 11/26/19 11/26/19 History sacubitril-valsartan [Entresto] 1 tab PO BID 11/26/19 11/26/19 History Patient History Medical History (Updated 11/26/19 @ 16:[address] DO) Diabetic neuropathy Dyslipidemia Injury of left shoulder (Inactive) 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 Lyme disease Splenic infarct Work related injury (Inactive) Surgical History (Updated 11/26/19 @ 14:47 by Sury Mohamud PA-C) History of colonoscopy History of esophagogastroduodenoscopy (EGD) Presence of biventricular implantable cardioverter-defibrillator (ICD) Status post amputation of toe of right foot [place] teeth extracted Family History (Updated 11/26/19 @ 14:55 by Sury Mohamud PA-C) Father Heart disease Social History Preferred Language: Taiwanese Communication Ability: Effective Sow Manager Required: No Beliefs That Will Affect Care: None Current Living Situation: Alone Other Information That Helps Us Care for You: No Feels Safe at Home: Yes Safety Concerns: Feels Safe At This Time Smoking Status: Never smoker Hx Alcohol Use: No Hx Substance Use: No Review of Systems Review of Systems: All systems reviewed & are unremarkable except as noted in HPI & below Physical Exam Constitutional: WD/WN, vitals as above no acute distress and not ill appearing Eyes: PERRL, conjunctivae normal, anicteric sclerae EOM intact bilaterally ENMT: Ears: no hearing impairment Nose: + dry nasal mucous membranes Neck: trachea midline, no thyromegaly Respiratory: normal respiratory effort; no respiratory distress and does not use accessory muscles Cardiovascular: Rate/Rhythm: regular rate and regular rhythm Gastrointestinal (Abdomen): soft. +epigastric and mild RUQ ttp. no g/r/r. Skin: no rashes, warm and dry Psychiatric: Orientation: alert, oriented x 3 and cooperative Results & Data Vital Signs (Past 12 Hours) Vital Signs Temp Pulse Resp BP Pulse Ox 11/26/19 13:30 105 H 27 H 126/65 91 11/26/19 13:00 111 H 31 H 124/65 96 11/26/19 12:30 109 H 26 H 112/65 96 11/26/19 12:02 107 H 30 H 117/78 98 11/26/19 11:30 115 H 28 H 115/83 96 11/26/19 11:00 112 H 29 H 136/77 97 11/26/19 10:42 121 H 22 131/79 96 11/26/19 10:31 113 H 26 H 94 11/26/19 10:30 113 H 21 126/81 94 11/26/19 10:18 36.8 C 118 H 24 130/80 94 11/26/19 10:16 119 H 18 94 11/26/19 10:13 117 H 31 H 130/80 94 PG Care Time/CCT Total # of Minutes Spent Total Time Spent with Patient: Total time spent is greater than 50% in coordination of care (as documented) at patient's floor/unit and/or counseling patient: Coding Level of Care Code 19116 Inpt Consult Level 4 Diagnoses Nausea and vomiting R11.2 Diarrhea R19.7 Duodenitis K29.80 Splenic infarct D73.5 Dehydration E86.0
--- NOTE | 2019-11-26 16:59 | Electrocardiogram Report ---
Test Reason : Blood Pressure : / mmHG Vent. Rate : 125 BPM Atrial Rate : 125 BPM P-R Int : 114 ms QRS Dur : 148 ms QT Int : 376 ms P-R-T Axes : 034 -74 086 degrees QTc Int : 542 ms Atrial-sensed ventricular-paced rhythm with occasional Premature ventricular complexes Biventricular pacemaker detected Abnormal ECG When compared with ECG of 08-AUG-2019 15:20, Premature ventricular complexes are now Present Vent. rate has increased BY 40 BPM Confirmed by Evan Cohen ([id number]) on 11/26/2019 4:59:04 PM Referred By: REFERRED SELF Confirmed By:Xu Cohen
[2019-11-26] MEDS ORDERED: PIPERACILLIN/TAZOBACTAM 4.5 GM in DEXTROSE 5% 100 ML IV ONE (17:00)
[2019-11-26 17:01] LABS: INR 1.2 (0.9-1.1); Partial Thromboplastin Ratio 1.2; Partial Thromboplastin Time 33.8 Seconds (21.0-31.0); Prothrombin Time 12.4 Seconds (9.0-12.0)
[2019-11-26] MEDS: D5W AND 1/2NSS 1,000 ML IV SCH (17:02)
[2019-11-26 17:07] LABS: BUN Creatinine Ratio 36.6 (10-20); Calcium 8.3 mg/dl (8.5-10.1); Creatinine Clr Calc Pharmacy 81.8 ml/min; Est GFR (African American) 67.1; Est GFR (Non-African American) 57.9
[2019-11-26] MEDS ORDERED: SODIUM CHLORIDE 0.9% 1000 ML BAG IV ONE (17:22)
[2019-11-26] MEDS ORDERED: MAGNESIUM SULFATE 1GM / D5W BAG IV ONE (17:22)
[2019-11-26] MEDS ORDERED: SODIUM CHLORIDE 0.9% 500 ML BAG IV ONE (17:22)
[2019-11-26] MEDS: INSULIN ASPART 100 UNITS/ML 3 ML PEN SC SCH ×2 (18:03→20:32)
--- NOTE | 2019-11-26 18:54 | Ultrasound Report ---
ULTRASOUND BILATERAL LOWER EXTREMITY VENOUS CLINICAL HISTORY: Splenic infarcts. Clinical concern for deep venous thrombosis. COMPARISON STUDY: Bilateral lower extremity venous ultrasound dated 03/11/2014. TECHNIQUE: Real-time, grayscale, and color Doppler sonography of the deep veins of the right and left lower extremity was performed from the inguinal crease to the calf. Compression and augmentation wer e utilized. FINDINGS: There is no sonographic evidence of deep venous thrombosis identified in the right or left lower extremity. The common femoral, superficial femoral, and popliteal veins are patent and normally compressible bilaterally. The greater saphenous vein and the profunda femoris vein at the junction w ith the common femoral vein are clear in both legs. The visualized calf veins are patent bilaterally. IMPRESSION: There is no sonographic evidence of deep venous thrombosis identified in the right or lef t lower extremity. ACT 112: Negative or not required by law. Electronically signed by: Wallace Alexander M.D. 11/26/2019 6:53 PM
[2019-11-26] MEDS: HYDROmorphone INJ 0.5 MG/0.5 ML SYR IV PRN (20:14)
[2019-11-26] MEDS: ONDANSETRON INJ 2 MG/ML 2 ML VIAL IV PRN (20:14)
[2019-11-26] MEDS: PANTOprazole 40 MG in SYRINGE 0 ML IV SCH (20:15)
[2019-11-26] MEDS: SACUBITRIL-VALSARTAN 49/51 MG TAB PO SCH (20:15)
[2019-11-26] MEDS: INSULIN GLARGINE SOLOSTAR 100 UNITS/ML 3 ML PEN SC SCH (20:16)
[2019-11-26] MEDS: PIPERACILLIN/TAZOBACTAM 4.5 GM in DEXTROSE 5% 100 ML IV SCH (20:35)
[2019-11-26] MEDS ORDERED: INSULIN GLARGINE SOLOSTAR 100 UNITS/ML 3 ML PEN SC SCH (21:00)
[2019-11-26] MEDS ORDERED: VANCOMYCIN CONSULT ACTIVE PRN (23:24)
[2019-11-27] MEDS ORDERED: VANCOMYCIN HCL 2,750 MG in SODIUM CHLORIDE 0.9% 500 ML IV STA (00:20)
[2019-11-27] MEDS: D5W AND 1/2NSS 1,000 ML IV SCH (05:34)
[2019-11-27] MEDS: PIPERACILLIN/TAZOBACTAM 4.5 GM in DEXTROSE 5% 100 ML IV SCH ×2 (06:00→13:09)
--- NOTE | 2019-11-27 06:04 | Pharmacy Report ---
Pharmacy Abx Dose Short Note - Date of Service November 27, 2019 - Assessment & Plan Assessment * Mr Lopez is a 59 year old M receiving empiric Vanc/Zosyn for treatment of splenic infarct, ?duodenitis, bacteremia. * Blood cultures are positive 2/2 for GPC, sensitivities pending. * PMH is significant for T2DM w/ neuropathy s/p amputation of R middle toe, nonischemic cardiomyopathy s/p biventricular ICD/pacer placement, chronic systolic heart failure * CT Abd/Pelvis showed multiple small peripheral hypodensities within the spleen measuring up to 1.8 m. Possible small splenic infarcts. Mild fluid adjacent to the duodenum- possible duodenitis versus volume overload Plan Vancomycin * Vancomycin 2750mg (~22.5mg/kg) IV x1 dose, then * Vancomycin 1500mg (~12mg/kg) IV q12h * Estimated p'kinetic parameters (based on CrCl ~82mL/min): * Vd ~ 0.58L/kg Matheus ~ 0.072/hr t1/2 ~ 9.6hr * Goal trough level for bacteremia: 15 to 20 mcg/mL * Will check a trough level prior to the 4th dose. This will not yet represent steady-state. Zosyn 4.5gm IV x1 dose over 30 min, then 4.5gm IV q8h extended-infusion Pharmacy will continue to follow and will adjust dose/frequency as necessary. Thank you.
[2019-11-27 07:08] LABS: Basophils # (auto) 0.01 K/uL (0-0.2); Basophils % (auto) 0.1 %; Hematocrit (blood only) 32.2 % (42-52); Hemoglobin 10.8 g/dL (14.0-18.0); Immature Granulocytes # (auto) 0.07 K/uL (0.00-0.02); Immature Granulocytes % (auto) 0.6 %; Lymphocytes # (auto) 0.79 K/uL (1.2-3.4); Lymphocytes % (auto) 7.3 %; Mean Corpuscular Hemoglobin 28.3 pg (25-34); Mean Corpuscular Hgb Conc 33.5 g/dL (32-36); Mean Corpuscular Volume 84.5 fL (80-100); Mean Platelet Volume 10.5 fL (7.4-10.4); Monocytes # (auto) 1.11 K/uL (0.11-0.59); Monocytes % (auto) 10.3 %; Neutrophils # (auto) 8.82 K/uL (1.4-6.5); Neutrophils % (auto) 81.7 %; Platelet Count 100 K/uL (130-400); RDW Coefficient of Variation 15.1 % (11.5-14.5); RDW Standard Deviation 47.1 fL (36.4-46.3); Red Blood Count 3.81 M/uL (4.7-6.1)
[2019-11-27 07:29] LABS: Estimated Average Glucose 177 mg/dl; Hemoglobin A1C 7.8 % (4.5-5.6)
[2019-11-27 07:41] LABS: BUN Creatinine Ratio 24.5 (10-20); Calcium 7.9 mg/dl (8.5-10.1); Creatinine Clr Calc Pharmacy 42.8 ml/min; Est GFR (African American) 30.7; Est GFR (Non-African American) 26.4; Potassium 3.6 mmol/L (3.5-5.1)
[2019-11-27] MEDS: SACUBITRIL-VALSARTAN 49/51 MG TAB PO SCH ×2 (08:11→20:42)
[2019-11-27] MEDS: ATORVASTATIN 40 MG TAB PO SCH (08:11)
[2019-11-27] MEDS ORDERED: DAPTOMYCIN CONSULT ACTIVE PRN (08:23)
[2019-11-27] MEDS: INSULIN ASPART 100 UNITS/ML 3 ML PEN SC SCH ×4 (08:33→20:43)
[2019-11-27] MEDS: PANTOprazole 40 MG in SYRINGE 0 ML IV SCH ×2 (08:33→20:42)
[2019-11-27] MEDS: ONDANSETRON INJ 2 MG/ML 2 ML VIAL IV PRN (08:36)
[2019-11-27] MEDS: HYDROmorphone INJ 0.5 MG/0.5 ML SYR IV PRN (08:37)
--- NOTE | 2019-11-27 08:52 | Surgery Progress Note ---
Date of Service November 27, 2019 Assessment & Plan (1) Abdominal pain: will check GB U/S elevated BUN/Cr await GI c/s as above. pt still with right sided abdominal pain. decrease BP/increased HR/increased creat c/w dehydration likely volume depleted. recommend increasing IVF and possibly consider renal US will obtain GB US for his right sided pain. GI to perform EGD will continue to follow along peripherally though no surgical indications at this point. Subjective generalized abdominal pain, some nausea no vomiting overnight Physical Exam Gastrointestinal (Abdomen): Percussion/Palpation: + abdomen tender (mild, generalized) and abdomen soft Results & Data Vital Signs (Past 12 Hours) Vital Signs Temp Pulse Pulse Resp BP BP Pulse Ox 11/27/19 08:30 120/85 11/27/19 07:46 37.0 C 94 H 18 89/58 L 92 11/27/19 07:28 96 H 11/27/19 03:50 37.2 C 105 H 19 93/53 L 92 11/27/19 00:16 124 H 11/27/19 00:00 37.6 C H 86 19 89/59 L 91 PG Care Time/CCT Total # of Minutes Spent Total Time Spent with Patient: Total time spent is greater than 50% in coordination of care (as documented) at patient's floor/unit and/or counseling patient: Coding Level of Care Code 96472 Subseq Hosp Care Lvl 2 Diagnoses Abdominal pain R10.9 Abdominal location: unspecified location (1) Abdominal pain Abdominal location: unspecified location Qualified Code(s): R10.9 - Unspecified abdominal pain
--- NOTE | 2019-11-27 09:04 | Gastrointestinal Consultation ---
Date of Consultation November 27, 2019 Assessment & Plan (1) Abdominal pain: 59 year old male with history of T2DM with neuropathy s/p amputation of the right middle toe, dyslipidemia, nonischemic cardiomyopathy s/p biventricular ICD/pacer placement, chronic systolic heart failure, chronic LBBB, and HTN admitted with abdominal pain, nausea/vomiting CTAP w/ splenic infarct, duodenitis, blood cultures now growing gram cocci Appreciate hospitalist input Diagnostic EGD pending clearance Continue IV PPI BID Antiemetic PRN Analgesia PRN Pending EGD results consider GES as OP Thank you for allowing us to participate in the care of this patient. Please call with any acute changes, questions or concerns. Please see addendum below with additional recommendation from my supervising physician. Present on Admission?: Yes Supervising Physician Co-Signing Physician Notes I have seen and examined the patient and discussed the management with JORGE LUIS Trujillo. His abdominal pain appears to be improving. Denies nsaid use or alcohol use. Denies fevers, chills, cough, belly pain, nausea, vomiting, diarrhea. PE - slightly pale appearing, no acute distress, normal excursion of chest, abd soft nt nd +bs Labs reviewed Egd to rule out pud or gastritis/esophagitis. Denies being on blood thinners. History of Present Illness Reason for Consultation: abd pain, nausea/vomiting Requesting Physician: Shar Attending Physician: Nasir Myles MD History of Present Illness 59 yo obese male who presented to the ED with abdominal pain and intractable N/V admitted w/ abnormal CT imaging duodenitis and splenic infarct, PMH significant for T2DM with neuropathy s/p amputation of the right middle toe, dyslipidemia, nonischemic cardiomyopathy s/p biventricular ICD/pacer placement, chronic systolic heart failure, chronic LBBB, and HTN - GI asked to evaluated. Pt notes acute onset upper abd pain with GERD symptoms nausea and bilious emesis since Tuesday. No black/bloody emesis. ABD pain slightly improved since admission but overall persistent. No fever, chills, CP, SOB. Blood culture this AM positive, gram + cocci CT Multiple small peripheral hypodensities within the spleen that measure up to 1.8 cm. These favor small age indeterminate splenic infarcts. Mild fluid adjacent to the third portion of the duodenum. This is likely due to volume overload although duodenitis could appear similar. Moderate pancreatic glandular atrophy. Trace bilateral pleural effusions. EGD 2016: LA Grade A reflux esophagitis. Biopsied.Hiatal Hernia Normal sto mach.Normal examined duodenum. Biopsied. Colonoscopy 2014: The examined portion of the ileum was normal. Two 3 to 6 mm polyps in the sigmoid colon. Resected and retrieved. The distal rectum and anal verge are normal on retroflexion view. Allergies Allergy/AdvReac Type Severity Reaction Status Date / Time No Known Allergies Allergy Unverified 11/26/19 10:57 Home Medications Home Medications Medication Instructions Recorded Confirmed Type aspirin [Aspir-81] 81 mg PO QAM 11/26/19 11/26/19 History atorvastatin 80 mg PO QAM 11/26/19 11/26/19 History canagliflozin [Invokana] 300 mg PO QAM 11/26/19 11/26/19 History dulaglutide [Trulicity] 1.5 mg SUBCUT MOLINA 11/26/19 11/26/19 History furosemide 20 mg PO BID 11/26/19 11/26/19 History insulin glargine [Lantus Solostar 20 unit SUBCUT HS 11/26/19 11/26/19 History U-100 Insulin] metformin 1,000 mg PO BIDM 11/26/19 11/26/19 History lrzuiipf-yjh-hfcpm-vit K-lycop 1 tab PO QAM 11/26/19 11/26/19 History [Men's Multivitamin] nitroglycerin [Nitrostat] 0.4 mg SUBLINGUAL UD PRN 11/26/19 11/26/19 History sacubitril-valsartan [Entresto] 1 tab PO BID 11/26/19 11/26/19 History Patient History Medical History (Updated 11/27/19 @ 09:32 by Daniel Howard MD) Anemia Cardiomyopathy Diabetic neuropathy Duodenitis Dyslipidemia Heart failure Hypertension Hyponatremia Injury of left shoulder (Inactive) 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 Lyme disease Obesity Renal insufficiency Splenic infarct (Acute) Work related injury (Inactive) Surgical History History of colonoscopy History of esophagogastroduodenoscopy (EGD) Presence of biventricular implantable cardioverter-defibrillator (ICD) Status post amputation of toe of right foot [place] teeth extracted Family History Father Heart disease Social History Preferred Language: Citizen Of [place] Communication Ability: Effective Informatics Specialist Required: No Beliefs That Will Affect Care: None Current Living Situation: Alone Other Information That Helps Us Care for You: No Feels Safe at Home: Yes Safety Concerns: Feels Safe At This Time Smoking Status: Never smoker Hx Alcohol Use: No Hx Substance Use: No Review of Systems Constitutional: no fever and no chills Respiratory: no cough and no dyspnea Cardiovascular: no chest pain Physical Exam Constitutional: well developed and well nourished; no acute distress Respiratory: normal respiratory effort, lungs clear to auscultation Gastrointestinal (Abdomen): Inspection/Auscultation: abdomen normal to inspection and normal bowel sounds Percussion/Palpation: + abdomen tender (epigaistric/RUQ) and abdomen soft Results & Data ([facility]) Vital Signs (Past 12 Hours) Vital Signs Temp Pulse Pulse Resp BP BP Pulse Ox 11/27/19 08:30 120/85 11/27/19 07:46 37.0 C 94 H 18 89/58 L 92 11/27/19 07:28 96 H 11/27/19 03:50 37.2 C 105 H 19 93/53 L 92 11/27/19 00:16 124 H 11/27/19 00:00 37.6 C H 86 19 89/59 L 91 Laboratory Results 11/27/19 11/27/19 11/27/19 Range/Units 07:38 06:40 06:40 WBC (4.8-10.8) K/uL RBC (4.7-6.1) M/uL Hgb (14.0-18.0) g/dL Hct (42-52) % MCV (80-100) fL MCH (25-34) pg MCHC (32-36) g/dL RDW Std Deviation (36.4-46.3) fL RDW Coeff of Cristela (11.5-14.5) % Plt Count (130-400) K/uL MPV (7.4-10.4) fL Immature Gran % (Auto) % Neut % (Auto) % Lymph % (Auto) % Reynolds % (Auto) % Eos % (Auto) % Baso % (Auto) % Immature Gran # (Auto) (0.00-0.02) K/uL Neut # (Auto) (1.4-6.5) K/uL Lymph # (Auto) (1.2-3.4) K/uL Reynolds # (Auto) (0.11-0.59) K/uL Eos # (Auto) (0-0.5) K/uL Baso # (Auto) (0-0.2) K/uL PT (9.0-12.0) Seconds INR (0.9-1.1) APTT (21.0-31.0) Seconds PTT Ratio Sodium 130 L (136-145) mmol/L Potassium 3.6 (3.5-5.1) mmol/L Chloride 98 (98-107) mmol/L Carbon Dioxide 22 (21-32) mmol/L Anion Gap 11.0 (3-11) BUN 63 H (7-18) mg/dl Creatinine 2.58 H D (0.6-1.4) mg/dl Est Cr Clr Drug Dosing 42.8 ml/min Est GFR ( Amer) 30.7 Est GFR (Non-Af Amer) 26.4 BUN/Creatinine Ratio 24.5 H (10-20) Glucose 267 H (70-99) mg/dl POC Glucose 287 H (70-99) mg/dl Estimat Average Glucose 177 mg/dl Hemoglobin A1c 7.8 H (4.5-5.6) % Osmolality (280-300) mOsm/kg Calcium 7.9 L (8.5-10.1) mg/dl Total Bilirubin (0.2-1) mg/dl AST (15-37) U/L ALT (12-78) U/L Alkaline Phosphatase (45-117) U/L Troponin I (0-0.045) ng/ml Total Protein (6.4-8.2) gm/dl Albumin (3.4-5.0) gm/dl Globulin (2.5-4.0) gm/dl Albumin/Globulin Ratio (0.9-2) Triglycerides 378 H (0-150) mg/dl Cholesterol 97 (0-200) mg/dl LDL Cholesterol, Calc 12 mg/dl VLDL Cholesterol, Calc 76 mg/dl HDL Cholesterol 9 mg/dl Cholesterol/HDL Ratio 11 Lipase (73-393) U/L Hepatitis C Ab Screen (Neg) Monoscreen (Negative) Bld Cult Staph aureus PCR (Negative) Blood Culture MRSA PCR (Negative) Blood Type Antibody Screen 11/27/19 11/26/19 11/26/19 Range/Units 06:40 20:07 16:48 WBC 10.80 (4.8-10.8) K/uL RBC 3.81 L (4.7-6.1) M/uL Hgb 10.8 L (14.0-18.0) g/dL Hct 32.2 L (42-52) % MCV 84.5 (80-100) fL MCH 28.3 (25-34) pg MCHC 33.5 (32-36) g/dL RDW Std Deviation 47.1 H (36.4-46.3) fL RDW Coeff of Cristela 15.1 H (11.5-14.5) % Plt Count 100 L (130-400) K/uL MPV 10.5 H (7.4-10.4) fL Immature Gran % (Auto) 0.6 % Neut % (Auto) 81.7 % Lymph % (Auto) 7.3 % Reynolds % (Auto) 10.3 % Eos % (Auto) 0.0 % Baso % (Auto) 0.1 % Immature Gran # (Auto) 0.07 H (0.00-0.02) K/uL Neut # (Auto) 8.82 H (1.4-6.5) K/uL Lymph # (Auto) 0.79 L (1.2-3.4) K/uL Reynolds # (Auto) 1.11 H (0.11-0.59) K/uL Eos # (Auto) 0.00 (0-0.5) K/uL Baso # (Auto) 0.01 (0-0.2) K/uL PT (9.0-12.0) Seconds INR (0.9-1.1) APTT (21.0-31.0) Seconds PTT Ratio Sodium (136-145) mmol/L Potassium (3.5-5.1) mmol/L Chloride (98-107) mmol/L Carbon Dioxide (21-32) mmol/L Anion Gap (3-11) BUN (7-18) mg/dl Creatinine (0.6-1.4) mg/dl Est Cr Clr Drug Dosing ml/min Est GFR ( Amer) Est GFR (Non-Af Amer) BUN/Creatinine Ratio (10-20) Glucose (70-99) mg/dl POC Glucose 286 H 246 H (70-99) mg/dl Estimat Average Glucose mg/dl Hemoglobin A1c (4.5-5.6) % Osmolality (280-300) mOsm/kg Calcium (8.5-10.1) mg/dl Total Bilirubin (0.2-1) mg/dl AST (15-37) U/L ALT (12-78) U/L Alkaline Phosphatase (45-117) U/L Troponin I (0-0.045) ng/ml Total Protein (6.4-8.2) gm/dl Albumin (3.4-5.0) gm/dl Globulin (2.5-4.0) gm/dl Albumin/Globulin Ratio (0.9-2) Triglycerides (0-150) mg/dl Cholesterol (0-200) mg/dl LDL Cholesterol, Calc mg/dl VLDL Cholesterol, Calc mg/dl HDL Cholesterol mg/dl Cholesterol/HDL Ratio Lipase (73-393) U/L Hepatitis C Ab Screen (Neg) Monoscreen (Negative) Bld Cult Staph aureus PCR (Negative) Blood Culture MRSA PCR (Negative) Blood Type Antibody Screen 11/26/19 11/26/19 11/26/19 Range/Units 16:32 16:32 16:32 WBC (4.8-10.8) K/uL RBC (4.7-6.1) M/uL Hgb (14.0-18.0) g/dL Hct (42-52) % MCV (80-100) fL MCH (25-34) pg MCHC (32-36) g/dL RDW Std Deviation (36.4-46.3) fL RDW Coeff of Cristela (11.5-14.5) % Plt Count (130-400) K/uL MPV (7.4-10.4) fL Immature Gran % (Auto) % Neut % (Auto) % Lymph % (Auto) % Reynolds % (Auto) % Eos % (Auto) % Baso % (Auto) % Immature Gran # (Auto) (0.00-0.02) K/uL Neut # (Auto) (1.4-6.5) K/uL Lymph # (Auto) (1.2-3.4) K/uL Reynolds # (Auto) (0.11-0.59) K/uL Eos # (Auto) (0-0.5) K/uL Baso # (Auto) (0-0.2) K/uL PT 12.4 H (9.0-12.0) Seconds INR 1.2 H (0.9-1.1) APTT 33.8 H (21.0-31.0) Seconds PTT Ratio 1.2 Sodium 131 L (136-145) mmol/L Potassium 4.0 (3.5-5.1) mmol/L Chloride 98 (98-107) mmol/L Carbon Dioxide 21 (21-32) mmol/L Anion Gap 12.0 H (3-11) BUN 49 H (7-18) mg/dl Creatinine 1.35 (0.6-1.4) mg/dl Est Cr Clr Drug Dosing 81.8 ml/min Est GFR ( Amer) 67.1 Est GFR (Non-Af Amer) 57.9 BUN/Creatinine Ratio 36.6 H (10-20) Glucose 245 H (70-99) mg/dl POC Glucose (70-99) mg/dl Estimat Average Glucose mg/dl Hemoglobin A1c (4.5-5.6) % Osmolality 292 (280-300) mOsm/kg Calcium 8.3 L (8.5-10.1) mg/dl Total Bilirubin (0.2-1) mg/dl AST (15-37) U/L ALT (12-78) U/L Alkaline Phosphatase (45-117) U/L Troponin I (0-0.045) ng/ml Total Protein (6.4-8.2) gm/dl Albumin (3.4-5.0) gm/dl Globulin (2.5-4.0) gm/dl Albumin/Globulin Ratio (0.9-2) Triglycerides (0-150) mg/dl Cholesterol (0-200) mg/dl LDL Cholesterol, Calc mg/dl VLDL Cholesterol, Calc mg/dl HDL Cholesterol mg/dl Cholesterol/HDL Ratio Lipase (73-393) U/L Hepatitis C Ab Screen (Neg) Monoscreen (Negative) Bld Cult Staph aureus PCR (Negative) Blood Culture MRSA PCR (Negative) Blood Type Antibody Screen 11/26/19 11/26/19 11/26/19 Range/Units 16:32 13:45 12:58 WBC (4.8-10.8) K/uL RBC (4.7-6.1) M/uL Hgb (14.0-18.0) g/dL Hct (42-52) % MCV (80-100) fL MCH (25-34) pg MCHC (32-36) g/dL RDW Std Deviation (36.4-46.3) fL RDW Coeff of Cristela (11.5-14.5) % Plt Count (130-400) K/uL MPV (7.4-10.4) fL Immature Gran % (Auto) % Neut % (Auto) % Lymph % (Auto) % Reynolds % (Auto) % Eos % (Auto) % Baso % (Auto) % Immature Gran # (Auto) (0.00-0.02) K/uL Neut # (Auto) (1.4-6.5) K/uL Lymph # (Auto) (1.2-3.4) K/uL Reynolds # (Auto) (0.11-0.59) K/uL Eos # (Auto) (0-0.5) K/uL Baso # (Auto) (0-0.2) K/uL PT (9.0-12.0) Seconds INR (0.9-1.1) APTT (21.0-31.0) Seconds PTT Ratio Sodium (136-145) mmol/L Potassium (3.5-5.1) mmol/L Chloride (98-107) mmol/L Carbon Dioxide (21-32) mmol/L Anion Gap (3-11) BUN (7-18) mg/dl Creatinine (0.6-1.4) mg/dl Est Cr Clr Drug Dosing ml/min Est GFR ( Amer) Est GFR (Non-Af Amer) BUN/Creatinine Ratio (10-20) Glucose (70-99) mg/dl POC Glucose (70-99) mg/dl Estimat Average Glucose mg/dl Hemoglobin A1c (4.5-5.6) % Osmolality (280-300) mOsm/kg Calcium (8.5-10.1) mg/dl Total Bilirubin (0.2-1) mg/dl AST (15-37) U/L ALT (12-78) U/L Alkaline Phosphatase (45-117) U/L Troponin I 0.016 (0-0.045) ng/ml Total Protein (6.4-8.2) gm/dl Albumin (3.4-5.0) gm/dl Globulin (2.5-4.0) gm/dl Albumin/Globulin Ratio (0.9-2) Triglycerides (0-150) mg/dl Cholesterol (0-200) mg/dl LDL Cholesterol, Calc mg/dl VLDL Cholesterol, Calc mg/dl HDL Cholesterol mg/dl Cholesterol/HDL Ratio Lipase (73-393) U/L Hepatitis C Ab Screen (Neg) Monoscreen (Negative) Bld Cult Staph aureus PCR Positive A (Negative) Blood Culture MRSA PCR Negative (Negative) Blood Type O Negative Antibody Screen NEGATIVE 11/26/19 11/26/19 11/26/19 Range/Units 10:20 10:20 10:20 WBC (4.8-10.8) K/uL RBC (4.7-6.1) M/uL Hgb (14.0-18.0) g/dL Hct (42-52) % MCV (80-100) fL MCH (25-34) pg MCHC (32-36) g/dL RDW Std Deviation (36.4-46.3) fL RDW Coeff of Cristela (11.5-14.5) % Plt Count (130-400) K/uL MPV (7.4-10.4) fL Immature Gran % (Auto) % Neut % (Auto) % Lymph % (Auto) % Reynolds % (Auto) % Eos % (Auto) % Baso % (Auto) % Immature Gran # (Auto) (0.00-0.02) K/uL Neut # (Auto) (1.4-6.5) K/uL Lymph # (Auto) (1.2-3.4) K/uL Reynolds # (Auto) (0.11-0.59) K/uL Eos # (Auto) (0-0.5) K/uL Baso # (Auto) (0-0.2) K/uL PT (9.0-12.0) Seconds INR (0.9-1.1) APTT (21.0-31.0) Seconds PTT Ratio Sodium 130 L (136-145) mmol/L Potassium 3.9 (3.5-5.1) mmol/L Chloride 97 L (98-107) mmol/L Carbon Dioxide 21 (21-32) mmol/L Anion Gap 13.0 H (3-11) BUN 45 H (7-18) mg/dl Creatinine 1.53 H (0.6-1.4) mg/dl Est Cr Clr Drug Dosing 72.2 ml/min Est GFR ( Amer) 57.7 Est GFR (Non-Af Amer) 49.7 BUN/Creatinine Ratio 29.3 H (10-20) Glucose 243 H (70-99) mg/dl POC Glucose (70-99) mg/dl Estimat Average Glucose mg/dl Hemoglobin A1c (4.5-5.6) % Osmolality (280-300) mOsm/kg Calcium 8.4 L (8.5-10.1) mg/dl Total Bilirubin 0.8 (0.2-1) mg/dl AST 47 H (15-37) U/L ALT 53 (12-78) U/L Alkaline Phosphatase 104 (45-117) U/L Troponin I (0-0.045) ng/ml Total Protein 6.7 (6.4-8.2) gm/dl Albumin 2.1 L (3.4-5.0) gm/dl Globulin 4.6 H (2.5-4.0) gm/dl Albumin/Globulin Ratio 0.5 L (0.9-2) Triglycerides (0-150) mg/dl Cholesterol (0-200) mg/dl LDL Cholesterol, Calc mg/dl VLDL Cholesterol, Calc mg/dl HDL Cholesterol mg/dl Cholesterol/HDL Ratio Lipase 66 L (73-393) U/L Hepatitis C Ab Screen Neg (Neg) Monoscreen Negative (Negative) Bld Cult Staph aureus PCR (Negative) Blood Culture MRSA PCR (Negative) Blood Type Antibody Screen 11/26/19 Range/Units 10:20 WBC 9.96 (4.8-10.8) K/uL RBC 4.18 L (4.7-6.1) M/uL Hgb 11.7 L (14.0-18.0) g/dL Hct 35.0 L (42-52) % MCV 83.7 (80-100) fL MCH 28.0 (25-34) pg MCHC 33.4 (32-36) g/dL RDW Std Deviation 45.5 (36.4-46.3) fL RDW Coeff of Cristela 14.8 H (11.5-14.5) % Plt Count 133 (130-400) K/uL MPV 9.7 (7.4-10.4) fL Immature Gran % (Auto) 0.8 % Neut % (Auto) 92.8 % Lymph % (Auto) 3.5 % Reynolds % (Auto) 2.8 % Eos % (Auto) 0.0 % Baso % (Auto) 0.1 % Immature Gran # (Auto) 0.08 H (0.00-0.02) K/uL Neut # (Auto) 9.24 H (1.4-6.5) K/uL Lymph # (Auto) 0.35 L (1.2-3.4) K/uL Reynolds # (Auto) 0.28 (0.11-0.59) K/uL Eos # (Auto) 0.00 (0-0.5) K/uL Baso # (Auto) 0.01 (0-0.2) K/uL PT (9.0-12.0) Seconds INR (0.9-1.1) APTT (21.0-31.0) Seconds PTT Ratio Sodium (136-145) mmol/L Potassium (3.5-5.1) mmol/L Chloride (98-107) mmol/L Carbon Dioxide (21-32) mmol/L Anion Gap (3-11) BUN (7-18) mg/dl Creatinine (0.6-1.4) mg/dl Est Cr Clr Drug Dosing ml/min Est GFR ( Amer) Est GFR (Non-Af Amer) BUN/Creatinine Ratio (10-20) Glucose (70-99) mg/dl POC Glucose (70-99) mg/dl Estimat Average Glucose mg/dl Hemoglobin A1c (4.5-5.6) % Osmolality (280-300) mOsm/kg Calcium (8.5-10.1) mg/dl Total Bilirubin (0.2-1) mg/dl AST (15-37) U/L ALT (12-78) U/L Alkaline Phosphatase (45-117) U/L Troponin I (0-0.045) ng/ml Total Protein (6.4-8.2) gm/dl Albumin (3.4-5.0) gm/dl Globulin (2.5-4.0) gm/dl Albumin/Globulin Ratio (0.9-2) Triglycerides (0-150) mg/dl Cholesterol (0-200) mg/dl LDL Cholesterol, Calc mg/dl VLDL Cholesterol, Calc mg/dl HDL Cholesterol mg/dl Cholesterol/HDL Ratio Lipase (73-393) U/L Hepatitis C Ab Screen (Neg) Monoscreen (Negative) Bld Cult Staph aureus PCR (Negative) Blood Culture MRSA PCR (Negative) Blood Type Antibody Screen (1) Abdominal pain Abdominal location: unspecified location Qualified Code(s): R10.9 - Unspecified abdominal pain
--- NOTE | 2019-11-27 09:17 | Hospitalist Progress Note ---
Date of Service November 27, 2019 Assessment & Plan (1) Splenic infarct: Likely Septic emboli due to Staph Bacteremia Source -left 2nd toe ulceration with osteomyelitis and surrounding cellulitis On IV dapto and Zosyn Appreciate surgery input and recommendation Appreciate GI input and recommendation (2) Ulcer of left foot due to type 2 diabetes mellitus: Has necrotic and foul smelling ulceration left 2nd toe with adjoining cellulitis Diabetic neuropathy is complicating the ulcer Wound care provider and nurse consulted X-ray of the left foot shows osteomyelitis We will continue current antibiotic and further recommendation as per wound care (3) TITA (acute kidney injury): Likely Secondary to Vancomycin in combination with Zosyn Renal ultrasound did not show any renal artery obstruction and good flow in the veins Will hydrate and monitor PRP (4) Duodenitis: Noted in CAT scan Likely the cause for nausea and vomiting-will give symptomatic management Has been started with intravenous Protonix Appreciate GI input and recommendation (5) Nausea and vomiting: (6) Diarrhea: (7) Hyponatremia: Sodium level is 131 on admission We will monitor (8) NICM (nonischemic cardiomyopathy): (9) CHF (congestive heart failure): Chronic Systolic Congestive heart failure and s/p ICD placement in July 2019. Echo completed last week as an outpatient. Seems unlikely to be source of infarcts. Will wait to see what Gen Surg thinks. EKG completed in ED no new changes. No evidence of ACS and no evidence of acute CHF Has been getting cautious amount of IV fluid due to renal impairment (10) DM (diabetes mellitus): Insulin protocol Check A1C & lipids in AM (11) HTN (hypertension): Continue home meds (12) DVT prophylaxis: SCDs Will start heparin Will update the sister Admission and Anticipated Discharge Date Admission Date: November 26, 2019 Subjective The patient was seen and examined in telemetry unit He is still complains to have right-sided abdominal discomfort and pain with nausea Denies any fever and/or chills or any sweating. No chest pain and/or palpitation Noted to have chronic ulcer involving the left second toe with adjoining cellulitis Review of Systems Review of Systems: All systems reviewed and are unremarkable except as noted below Gastrointestinal: + abdominal pain and + nausea Musculoskeletal: No acute pain in any joints. Has ulceration involving the left second toe with foul-smelling discharge and adjoining cellulitis. Physical Exam Physical Exam: Lying in bed with some discomfort in the abdomen Constitutional: well developed, well nourished, + acute distress (Abdominal discomfort), + ill appearing and + obese Eyes: PERRL, conjunctivae normal, anicteric sclerae ENMT: external ear and nose normal, oropharynx normal Neck: trachea midline, no thyromegaly Respiratory: normal respiratory effort; no respiratory distress Auscultation: lungs clear to auscultation bilaterally Cardiovascular: Rate/Rhythm: regular rate and regular rhythm Heart Sounds: no murmur Gastrointestinal (Abdomen): Inspection/Auscultation: + abdomen distended and normal bowel sounds Percussion/Palpation: + abdomen tender (Mildly tender right quadrants) and abdomen soft; no guarding Musculoskeletal: Left second toe tip and dorsum ulcerated with foul-smelling discharge and adjoining cellulitis Neurologic: moves all extremities; no focal motor deficits Lymphatic: no cervical or axillary lymphadenopathy Results & Data Results & Data ([facility]) Vital Signs (Past 12 Hours) Vital Signs Temp Pulse Pulse Resp BP BP Pulse Ox 11/27/19 08:30 120/85 11/27/19 07:46 37.0 C 94 H 18 89/58 L 92 11/27/19 07:28 96 H 11/27/19 03:50 37.2 C 105 H 19 93/53 L 92 11/27/19 00:16 124 H 11/27/19 00:00 37.6 C H 86 19 89/59 L 91 Laboratory Results Short CBC 11/27/19 Range/Units 06:40 WBC 10.80 (4.8-10.8) K/uL Hgb 10.8 L (14.0-18.0) g/dL Hct 32.2 L (42-52) % Plt Count 100 L (130-400) K/uL BMP 11/26/19 11/27/19 16:32 06:40 Sodium 131 L 130 L Potassium 4.0 3.6 Chloride 98 98 Carbon Dioxide 21 22 BUN 49 H 63 H Creatinine 1.35 2.58 H D Glucose 245 H 267 H Calcium 8.3 L 7.9 L Cardiac Enzymes 11/26/19 Range/Units 12:58 Troponin I 0.016 (0-0.045) ng/ml Medications Administered Current Inpatient Medications Acetaminophen (Tylenol) 650 mg PO Q4H PRN PRN Reason: Pain or Fever Stop: 12/26/19 16:14 Al Hydrox/Mg Hydrox/Simethicone (Maalox) 15 ml PO Q4H PRN PRN Reason: Dyspepsia Stop: 12/26/19 16:14 Atorvastatin Calcium (Lipitor) 80 mg PO QAM [facility] Stop: 12/27/19 08:59 Last Admin: 11/27/19 08:11 Dose: Not Given Documented by: Dextrose (Dextrose 50%) 25 - 50 ml IV UD PRN; Protocol PRN Reason: Hypoglycemia Protocol Stop: 12/26/19 16:14 Glucagon (Glucagen) 1 mg SQ UD PRN; Protocol PRN Reason: Hypoglycemia Protocol Stop: 12/26/19 16:14 Glucose (Dex4 Glucose) 4 - 8 tabs PO UD PRN; Protocol PRN Reason: Hypoglycemia Protocol Stop: 12/26/19 16:14 Glucose (Glucose 40%) 15 - 30 gm PO UD PRN; Protocol PRN Reason: Hypoglycemia Protocol Stop: 12/26/19 16:14 Hydromorphone HCl (Dilaudid) 0.5 mg IV Q6 PRN PRN Reason: Severe Pain Stop: 12/10/19 16:14 Last Admin: 11/27/19 08:37 Dose: 0.5 mg Documented by: Pantoprazole Sodium 40 mg/ (Syringe) 10 mls @ 5 mls/min IV BID [facility] Stop: 12/26/19 20:59 Last Admin: 11/27/19 08:33 Dose: 5 mls/min Documented by: Piperacillin Sod/Tazobactam (Sod 4.5 gm/ Dextrose) 120 mls @ 30 mls/hr IV Q8H [facility]; Protocol Stop: 11/28/19 21:59 Last Infusion: 11/27/19 10:00 Dose: Infused Documented by: Sodium Chloride (Nss 1000ml) 1,000 mls @ 125 mls/hr IV .Q8H YULI Stop: 11/28/19 08:29 Daptomycin 950 mg/ Syringe 19 mls @ 9.5 mls/min IV Q24H [facility]; Protocol Stop: 12/11/19 19:59 Insulin Aspart (Novolog Flexpen) 0 units SC ACHS [facility] Stop: 12/26/19 17:14 Last Admin: 11/27/19 08:33 Dose: 4 units Documented by: Insulin Glargine (Lantus Solostar Pen) 10 units SC HS YULI Stop: 12/26/19 20:59 Last Admin: 11/26/19 20:16 Dose: 10 units Documented by: Miscellaneous (Carbohydrates For Hypoglycemia) 15 - 30 gm PO UD PRN PRN Reason: Hypoglycemia Protocol Stop: 12/26/19 16:14 Miscellaneous Information (Consult) 1 ea N/A UD PRN PRN Reason: Consult Stop: 12/26/19 16:14 Miscellaneous Information (Consult) 1 ea N/A UD PRN PRN Reason: Consult Stop: 12/27/19 08:22 Ondansetron HCl (Zofran) 4 mg IV Q6H PRN PRN Reason: Nausea Stop: 12/26/19 16:14 Last Admin: 11/27/19 08:36 Dose: 4 mg Documented by: Oxycodone HCl (Roxicodone Immediate Rel) 5 mg PO Q6H PRN PRN Reason: Moderate Pain Stop: 12/10/19 16:49 Sacubitril/Valsartan (Entresto 49/51mg) 1 tab PO BID [facility] Stop: 12/26/19 20:59 Last Admin: 11/27/19 08:11 Dose: Not Given Documented by: (1) Nausea and vomiting Vomiting Intractability: unspecified Vomiting type: unspecified Qualified Code(s): R11.2 - Nausea with vomiting, unspecified
--- NOTE | 2019-11-27 09:29 | Anesthesiology Consultation ---
Date of Service November 27, 2019 Assessment & Plan (1) Encounter for pre-operative examination: Chart Review Chart Review: Acceptable Risk for Surgery (necessary procedure) and Patient NOT seen in Pre Admission Testing Consults Requested none History Surgery Operation Date: 11/27/19 08:30 Proposed Procedures p Esophagogastroduodenoscopy Dr. Lexi Elliott M.D. Height/Weight Height: 6 ft Weight: 123 kg Allergies Allergy/AdvReac Type Severity Reaction Status Date / Time No Known Allergies Allergy Unverified 11/26/19 10:57 Medications Home Medications Medication Instructions Recorded Confirmed Last Taken aspirin [Aspir-81] 81 mg PO QAM 11/26/19 11/26/19 11/26/19 atorvastatin 80 mg PO QAM 11/26/19 11/26/19 11/26/19 canagliflozin [Invokana] 300 mg PO QAM 11/26/19 11/26/19 11/26/19 dulaglutide [Trulicity] 1.5 mg SUBCUT MOLINA 11/26/19 11/26/19 11/18/19 furosemide 20 mg PO BID 11/26/19 11/26/19 11/26/19 insulin glargine [Lantus Solostar 20 unit SUBCUT HS 11/26/19 11/26/19 11/25/19 U-100 Insulin] metformin 1,000 mg PO BIDM 11/26/19 11/26/19 11/26/19 [id number] K-lycop 1 tab PO QAM 11/26/19 11/26/19 11/26/19 [Men's Multivitamin] nitroglycerin [Nitrostat] 0.4 mg SUBLINGUAL UD PRN 11/26/19 11/26/19 Unknown sacubitril-valsartan [Entresto] 1 tab PO BID 11/26/19 11/26/19 11/26/19 Active Medications Generic Name Dose Route Start Last Admin Trade Name Freq PRN Reason Stop Dose Admin Atorvastatin Calcium 80 mg 11/27/19 09:00 11/27/19 08:11 Lipitor PO 12/27/19 08:59 Not Given QAM YULI Hydromorphone HCl 0.5 mg 11/26/19 16:15 11/27/19 08:37 Dilaudid IV 12/10/19 16:14 0.5 mg Q6 PRN Administration Severe Pain Pantoprazole Sodium 40 mg/ 10 mls @ 5 mls/min 11/26/19 21:00 11/27/19 08:33 Syringe IV 12/26/19 20:59 5 mls/min BID YULI Administration Piperacillin Sod/Tazobactam 120 mls @ 30 mls/hr 11/26/19 22:00 11/27/19 06:00 Sod 4.5 gm/ Dextrose IV 11/28/19 21:59 30 mls/hr Q8H YULI Administration Protocol Insulin Aspart 0 units 11/26/19 17:15 11/27/19 08:33 Novolog Flexpen SC 12/26/19 17:14 4 units ACHS YULI Administration Insulin Glargine 10 units 11/26/19 21:00 11/26/19 20:16 Lantus Solostar Pen SC 12/26/19 20:59 10 units HS YULI Administration Ondansetron HCl 4 mg 11/26/19 16:15 11/27/19 08:36 Zofran IV 12/26/19 16:14 4 mg Q6H PRN Administration Nausea Sacubitril/Valsartan 1 tab 11/26/19 21:00 11/27/19 08:11 Entresto 49/51mg PO 12/26/19 20:59 Not Given BID YULI Past Medical History Medical History (Updated 11/27/19 @ 09:32 by Daniel Howard MD) Anemia Cardiomyopathy Diabetic neuropathy Duodenitis Dyslipidemia Heart failure Hypertension Hyponatremia Injury of left shoulder (Inactive) 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 Lyme disease Obesity Renal insufficiency Splenic infarct (Acute) Work related injury (Inactive) Past Family History Family History Father Heart disease Past Surgical History Surgical History History of colonoscopy History of esophagogastroduodenoscopy (EGD) Presence of biventricular implantable cardioverter-defibrillator (ICD) Status post amputation of toe of right foot [address] teeth extracted Social History Smoking Status: Never smoker Hx Alcohol Use: No Hx Substance Use: No substance use type: does not use Physical Exam Vital Signs Last Vital Signs Temp 37.0 C 11/27/19 07:46 Pulse 94 H 11/27/19 07:46 Resp 18 11/27/19 07:46 BP 120/85 11/27/19 08:30 Pulse Ox 92 11/27/19 07:46 Testing Laboratory Results 11/27/19 06:40 11/27/19 06:40 PT 12.4 Seconds (9.0-12.0) H 11/26/19 16:32 INR 1.2 (0.9-1.1) H 11/26/19 16:32 APTT 33.8 Seconds (21.0-31.0) H 11/26/19 16:32 Hemoglobin A1c 7.8 % (4.5-5.6) H 11/27/19 06:40 Blood Type O Negative 11/26/19 16:32 Antibody Screen NEGATIVE 11/26/19 16:32 11/26/19 13:45 Aerobic Blood Culture - Preliminary Blood Gram positive cocci Anaerobic Blood Culture - Preliminary Gram positive cocci clusters 11/26/19 13:45 Aerobic Blood Culture - Preliminary Blood Gram positive cocci Anaerobic Blood Culture - Preliminary Gram positive cocci clusters 11/27/19 07:38 POC Glucose 287 H Electrocardiogram Date: 11/27/19 A sensed, V paced, rate [address] OF THE ABDOMEN AND PELVIS WITH CONTRAST CLINICAL HISTORY: Periumbilical abdominal pain. COMPARISON STUDY: None. TECHNIQUE: Following IV administration of 94 mL of Optiray-320, axial images of the abdomen and pelvis were obtained from the lung bases to the proximal femurs. Images were reviewed in the axial, sagittal, and coronal planes. IV contrast was administered without complication. Automated exposure control was utilized for the study. A dose lowering technique was utilized adhering to the principles of ALARA. CT DOSE: 1117.17 mGycm FINDINGS: Imaged portions of the lower chest partially visualize pacer leads. There are trace bilateral pleural effusions. No pneumatosis, free air or portal venous gas is present. No hepatic lesions are identified. Liver surface is s lightly lobulated. There is no biliary or pancreatic ductal dilatation. Moderate pancreatic glandular atrophy is noted. There is no peripancreatic infiltration. There are multiple small peripheral hypodensities within the spleen that measure up to 1.8 cm. The adrenal glands are unremarkable. There are bilateral renal parapelvic cysts. Mild symmetric bilateral perinephric infiltration is noted. There is minimal fluid/infiltration adjacent to the third portion of the duodenum. There is no evidence for a bowel obstruction. No lymphadenopathy is present. The appendix is normal. Bladder is mildly distended. There are no suspicious osseous lesions. Major vasculature is patent. IMPRESSION: 1. Multiple small peripheral hypodensities within the spleen that measure up to 1.8 cm. These favor small age indeterminate splenic infarcts. 2. Mild fluid adjacent to the third portion of the duodenum. This is likely due to volume overload although duodenitis could appear similar. 3. Moderate pancreatic glandular atrophy. 4. Trace bilateral pleural effusions. ACT 112: Negative or not required by law. Electronically signed by: Kael Bryson M.D. 11/26/2019 12:08 PM Dictated: 11/26/19 1154 Transcribed: 11/26/19 1154
--- NOTE | 2019-11-27 10:52 | Ultrasound Report ---
US gallbladder CLINICAL HISTORY: Abdominal pain. COMPARISON STUDY: CT of the abdomen and pelvis November 26, 2019. FINDINGS: This exam is compromised by suboptimal penetration. There is no biliary ductal dilatation. Common bile duct measures 6 mm in caliber. There is no gallbladder wall thickening. No gallstones are identified. There is coarsening of hepatic echotexture. Liver appears slightly lobulated. Suspected right-sided renal parapelvic cysts are noted. Pancreas is partially obscured. IMPRESSION: 1. No gallstones or biliary ductal dilatation. 2. Exam compromised by suboptimal penetration. Partially obscured pancreas. 3. Mild coarsening of hepatic echotexture and lobulated liver surface which raise the possibility of cirrhosis. ACT 112: Negative or not required by law. Electronically signed by: Kael Bryson M.D. 11/27/2019 10:50 AM
--- NOTE | 2019-11-27 11:00 | Ultrasound Report ---
US duplex renal artery CLINICAL HISTORY: 59 years-old Male presenting with elevated Cr. TECHNIQUE: Real-time grayscale and color and spectral Doppler ultrasound imaging of the kidneys was p erformed. COMPARISON: CT from 11/26/2019. FINDINGS: RIGHT: Grossly normal echogenicity with normal cortical thickness. Parapelvic cysts evident on CT likely acc ount for the appearance of mild pelvic caliectasis. No hydronephrosis. No gross evidence of calculus or mass. Spectral analysis: Intrarenal resistive index 1.0. Abnormal intrarenal arterial waveforms with loss of diastolic flow. R enal artery patent with peak systolic velocity 87 cm/s proximally, 73 cm/s in the midportion, and 67 cm/s distally. Renal vein patent. LEFT: Grossly normal echogenicity with normal cortical thickness. Parapelvic cysts evident on CT likely acc ount for the appearance of mild pelvic caliectasis. No hydronephrosis. No convincing evidence of calc ulus or mass. Spectral analysis: Intrarenal resistive index 1.0. Abnormal intrarenal arterial waveforms with loss of diastolic flow. R enal artery patent with peak systolic velocity 174 cm/s proximally, 163 cm/s in the midportion, and 1 45 cm/s distally. Renal vein patent. Abdominal aorta: Patent. Peak systolic velocity 126 cm/s. Ratio of right renal artery PSV/aortic PSV: 0.7. Ratio of left renal artery PSV/aortic PSV: 1.4. Bladder: Not evaluated. Other: None. Reference ranges: Normal main renal artery peak systolic velocity less than 180 cm/s. Ratio of renal artery PSV to aort ic PSV less than 3.5 equates to normal or less than 60% stenosis. Only one of the two criteria listed needs to be met for diagnosis. IMPRESSION: 1. Elevated intrarenal resistive indices with loss of diastolic flow, nonspecific. This may relate t o medical renal disease among many other etiologies. 2. No evidence of renal artery stenosis. 3. No convincing hydronephrosis. ACT 112: Negative or not required by law. Electronically signed by: Alexander Amaya M.D. 11/27/2019 10:59 AM
--- NOTE | 2019-11-27 11:03 | XRay Report ---
Left foot 3 views CLINICAL HISTORY: 2nd toe ulceration,R/O Osteo COMPARISON STUDY: None. FINDINGS: Soft tissue swelling within the first and second toes. Abnormal lucency/erosive change with in the middle and distal phalanges of the second toe. There appears to be a normal lucencies across t he interphalangeal joint of the first toe. Plantar and posterior calcaneal spurs. Vascular calcificat ions are noted. There appears to be fractures within the head of the proximal to the first toe and di stal phalanx of the second toe. IMPRESSION: 1. Abnormal lucency/erosive changes seen at the middle and distal phalanges of the second toe. This i s highly suspicious for osteomyelitis. 2. There is also abnormal lucency/erosive change across the interphalangeal joint of the first toe. T his can be seen in the setting of an osteomyelitis/septic arthritis. 3. Fractures at the head of the proximal phalanx of the first toe and distal phalanx of the second to e. ACT 112: Negative or not required by law. Electronically signed by: Daniel Abreu M.D. 11/27/2019 11:02 AM
[2019-11-27] MEDS ORDERED: INSULIN ASPART PER UNIT ONE (11:30)
[2019-11-27] MEDS ORDERED: INSULIN ASPART PER SC STA (11:33)
[2019-11-27] MEDS ORDERED: VANCOMYCIN HCL 1,500 MG in SODIUM CHLORIDE 0.9% 500 ML IV SCH (12:00)
--- NOTE | 2019-11-27 12:14 | GI REPORT ---
Patient Name: Bennett Lopez Procedure Date: 11/27/2019 11:38 AM Date of : 1960 Admit Type: Inpatient Age: 59 Gender: Male Attending MD: Dolores Elliott M.d. Procedure: Upper GI endoscopy Providers: Dolores Elliott M.d. Referring MD: Nasir Myles Indications: Epigastric abdominal pain Medicines: Propofol per Anesthesia, Lidocaine Complications: No immediate complications. Estimated Blood Loss: Estimated blood loss: none. Procedure: Pre-Anesthesia Assessment: - Patient identification and proposed procedure were verified prior to the procedure by the physician, the nurse and the anesthesiologist. The procedure was verified in the pre-procedure area. - Prior to the procedure, a History and Physical was performed, and patient medications, allergies and sensitivities were reviewed. The patient's tolerance of previous anesthesia was reviewed. - The risks and benefits of the procedure and the sedation options and risks were discussed with the patient. All questions were answered and informed consent was obtained. After obtaining informed consent, the endoscope was passed under direct vision. Throughout the procedure, the patient's blood pressure, pulse, and oxygen saturations were monitored continuously. The Scope was introduced through the mouth, and advanced to the second part of duodenum. The upper GI endoscopy was accomplished without difficulty. The patient tolerated the procedure well. Findings: The examined esophagus appeared normal. Moderately severe esophagitis without bleeding was found. Brushings for microbiology were obtained in the entire esophagus. The examined stomach appeared normal. Biopsies were taken with a cold forceps for Helicobacter pylori testing. The pathology specimen was placed into Bottle B. Verification of patient identification for the specimen was done by the physician and nurse using the patient's name and medical record number. Localized mild inflammation was found in the duodenal bulb and in the second portion of the duodenum with two clean based ulcers in the bulb Biopsies were taken with a cold forceps for histology and celiac disease. The pathology specimen was placed into Bottle A. Impression: - Normal esophagus. - Moderately severe candidiasis esophagitis. Brushings performed. - Normal stomach. Biopsied. - Duodenitis and two clean based ulcers. Biopsied. Recommendation: - Await pathology results. - Continue IV PPI for 24 hours then change to oral bid for the next 8 weeks. - Carafate 1 gram qid. - Empiric diflucan. - Return to floor when ready. Harvey Pickens M.d. 11/27/2019 12:14:18 PM This report has been signed electronically. Note Initiated On: 11/27/2019 11:38 AM Number of Addenda: 0 I attest to the content of the Intraoperative Record and orders documented therein, exceptions below {[id number]}
--- NOTE | 2019-11-27 12:43 | Anesthesiology Progress Note ---
Date of Service November 27, 2019 Anesthesia Post Procedure Vital Signs Vital Signs: Temp Pulse Pulse Resp BP BP BP 11/27/19 12:40 104/62 11/27/19 12:31 90/52 L 11/27/19 12:26 85 18 84/56 L 11/27/19 12:11 79 18 86/47 L 11/27/19 11:08 36.7 C 80 18 102/64 11/27/19 08:30 120/85 11/27/19 07:46 37.0 C 94 H 18 89/58 L 11/27/19 07:28 96 H 11/27/19 03:50 37.2 C 105 H 19 93/53 L 11/27/19 00:16 124 H 11/27/19 00:00 37.6 C H 86 19 89/59 L 11/26/19 19:10 37.4 C 117 H 23 147/78 H 11/26/19 16:35 109 H 11/26/19 16:15 36.8 C 107 H 15 138/82 11/26/19 16:00 36.8 C 107 H 18 138/82 11/26/19 13:30 105 H 27 H 126/65 11/26/19 13:00 111 H 31 H 124/65 Pulse Ox Pulse Ox 11/27/19 12:40 11/27/19 12:31 11/27/19 12:26 93 11/27/19 12:11 99 11/27/19 11:08 93 11/27/19 08:30 11/27/19 07:46 92 11/27/19 07:28 11/27/19 03:50 92 11/27/19 00:16 11/27/19 00:00 91 11/26/19 19:10 98 11/26/19 16:35 11/26/19 16:15 98 98 11/26/19 16:00 11/26/19 13:30 91 11/26/19 13:00 96 Pain Intensity Abdomen: Pain Intensity: 1 Transfer of Care Handoff Completed per policy Notes Mental Status: alert / awake / arousable Patient Amnestic to Procedure: Yes Nausea / Vomiting: adequately controlled Pain: adequately controlled Airway Patency, RR, SpO2: stable & adequate BP & HR: stable & adequate and see Notes below Hydration State: stable & adequate Anesthetic Complications: no major complications apparent and Pt Satisfied with anesthetic care Notes: The patient is awake and stable. His BP is slightly hypotensive but this is his baseline. He was given Novolog 12 units SC preoperatively. BSG went from 307 to 295. The patient's BSG will be monitored and treated on the floor.
[2019-11-27] MEDS: SUCRALFATE 1 GM/10 ML UDC PO SCH ×3 (13:07→20:42)
[2019-11-27] MEDS ORDERED: FLUCONAZOLE 200 MG/5 ML UDP PO SCH (14:45)
[2019-11-27] MEDS: CEFAZOLIN 2000MG 2,000 MG/15 ML SYR IV SCH (15:46)
--- NOTE | 2019-11-27 15:49 | Electrocardiogram Report ---
Test Reason : Blood Pressure : / mmHG Vent. Rate : 095 BPM Atrial Rate : 095 BPM P-R Int : 162 ms QRS Dur : 182 ms QT Int : 448 ms P-R-T Axes : 054 005 194 degrees QTc Int : 562 ms Atrial-sensed ventricular-paced rhythm Abnormal ECG When compared with ECG of 26-NOV-2019 10:16, Premature ventricular complexes are no longer Present Vent. rate has decreased BY 30 BPM Confirmed by Evan Cohen ([id number]) on 11/27/2019 3:49:29 PM Referred By: REFERRED SELF Confirmed By:Xu Cohen
[2019-11-27 16:09] LABS: Appearance Urine Turbid (Clear); Bilirubin Urine Negative (Negative); Blood Urine 1+ (Negative); Cast Urine Automated 0 /lpf (0-5); Color Urine Dark Yellow; Epithelial Cell Urine Auto 0-5 /lpf (0-5); Glucose Urine UA 3+ (Negative); Ketones Urine Negative (Negative); Leukocyte Esterase Urine Negative (Negative); Nitrite Urine Negative (Negative); Protein Urine 1+ (Negative); RBC Urine Automated 0-4 /hpf (0-4); Specific Gravity Urine 1.043 (1.000-1.030); Urobilinogen Urine Negative (Negative); WBC Urine Automated >30 /hpf (0-5)
[2019-11-27] MEDS: SODIUM CHLORIDE 0.9% 1000ML 1,000 ML IV SCH ×2 (16:35→16:46)
[2019-11-27 16:36] LABS: Bacteria Urine Automated 3+ (Negative)
[2019-11-27] MEDS: FLUCONAZOLE 100 MG TAB PO SCH (16:44)
[2019-11-27 16:58] LABS: Urine Chloride < 10 mmol/L; Urine Potassium 56.6 mmol/L; Urine Sodium 7 mmol/L
[2019-11-27 17:12] LABS: Basophils # (auto) 0.01 K/uL (0-0.2); Basophils % (auto) 0.1 %; Eosinophils # (auto) 0.02 K/uL (0-0.5); Eosinophils % (auto) 0.2 %; Hematocrit (blood only) 35.4 % (42-52); Hemoglobin 11.7 g/dL (14.0-18.0); Immature Granulocytes # (auto) 0.08 K/uL (0.00-0.02); Immature Granulocytes % (auto) 0.9 %; Lymphocytes # (auto) 0.29 K/uL (1.2-3.4); Lymphocytes % (auto) 3.1 %; Mean Corpuscular Hemoglobin 27.8 pg (25-34); Mean Corpuscular Hgb Conc 33.1 g/dL (32-36); Mean Corpuscular Volume 84.1 fL (80-100); Mean Platelet Volume 10.6 fL (7.4-10.4); Monocytes # (auto) 0.81 K/uL (0.11-0.59); Monocytes % (auto) 8.7 %; Neutrophils # (auto) 8.15 K/uL (1.4-6.5); Platelet Count 112 K/uL (130-400); RDW Coefficient of Variation 15.1 % (11.5-14.5); Red Blood Count 4.21 M/uL (4.7-6.1); White Blood Count 9.36 K/uL (4.8-10.8)
[2019-11-27 17:52] LABS: BUN Creatinine Ratio 21.2 (10-20); Calcium 7.7 mg/dl (8.5-10.1); Creatinine Clr Calc Pharmacy 32.9 ml/min; Est GFR (African American) 22.3; Est GFR (Non-African American) 19.2; Potassium 3.5 mmol/L (3.5-5.1)
[2019-11-27] MEDS ORDERED: DAPTOmycin 950 MG in SYRINGE 0 ML IV SCH (20:00)
[2019-11-27] MEDS: INSULIN GLARGINE SOLOSTAR 100 UNITS/ML 3 ML PEN SC SCH (20:43)
[2019-11-27] MEDS: OXYCODONE HCL IR 5 MG TAB (IMMEDIATE RELEASE) PO PRN (20:47)
[2019-11-28] MEDS: CEFAZOLIN 2000MG 2,000 MG/15 ML SYR IV SCH (00:44)
[2019-11-28] MEDS: SODIUM CHLORIDE 0.9% 1000ML 1,000 ML IV SCH (00:44)
[2019-11-28] MEDS ORDERED: SODIUM CHLORIDE 0.9% 500 ML IV SCH ×2 (02:15→03:00)
[2019-11-28] MEDS ORDERED: AMIODARONE 150MG / 100ML D5W IV ONE ×2 (02:46→05:29)
[2019-11-28] MEDS ORDERED: AMIODARONE IV BOLUS & DRIP IV STA (02:57)
[2019-11-28] MEDS ORDERED: AMIODARONE / D5W 150 MG/100 ML BAG IV STA (02:57)
[2019-11-28] MEDS ORDERED: 0.2 MICRON FILTER SET 1 EA IV ONE (02:57)
[2019-11-28] MEDS ORDERED: STAT IV Infusion **Titration per Protocol STA (02:57)
[2019-11-28] MEDS ORDERED: AMIODARONE 450 MG in D5W 250ML IN *POLYOLEFIN BAG* 241 ML IV SCH (03:15)
[2019-11-28] MEDS ORDERED: RAPID SEQUENCE INDUCTION BAG ONE (04:54)
[2019-11-28] MEDS ORDERED: VANCOMYCIN CONSULT ACTIVE PRN (04:55)
[2019-11-28] MEDS ORDERED: PIPERACILL/TAZOBAC CONSULT ACTIVE PRN (04:55)
[2019-11-28] MEDS ORDERED: NOREPINEPHRINE BITARTRATE 1 MG/ML 4 ML VIAL IV ONE (05:20)
[2019-11-28 05:21] LABS: Hematocrit (blood only) 32.7 % (42-52); Hemoglobin 10.8 g/dL (14.0-18.0); Mean Corpuscular Hemoglobin 27.9 pg (25-34); Mean Corpuscular Volume 84.5 fL (80-100); RDW Coefficient of Variation 15.2 % (11.5-14.5); RDW Standard Deviation 47.2 fL (36.4-46.3); Red Blood Count 3.87 M/uL (4.7-6.1); White Blood Count 12.46 K/uL (4.8-10.8)
[2019-11-28] MEDS: NOREPINEPHRINE (Adult) 8 MG in DEXTROSE 5% 500 ML IV SCH ×3 (05:28→19:31)
[2019-11-28] MEDS ORDERED: ESMOLOL / NSS 2,500 MG/250 ML BAG IV SCH (05:30)
[2019-11-28 05:34] LABS: INR 1.2 (0.9-1.1); Partial Thromboplastin Ratio 1.3; Partial Thromboplastin Time 35.2 Seconds (21.0-31.0); Prothrombin Time 12.4 Seconds (9.0-12.0)
[2019-11-28 05:39] LABS: Alanine Aminotransferase 25 U/L (12-78); Albumin Level 1.5 gm/dl (3.4-5.0); Aspartate Aminotransferase 21 U/L (15-37); BUN Creatinine Ratio 19.9 (10-20); Blood Urea Nitrogen 78 mg/dl (7-18); Calcium 6.7 mg/dl (8.5-10.1); Carbon Dioxide 11 mmol/L (21-32); Chloride 103 mmol/L (98-107); Creatinine Clr Calc Pharmacy 28.3 ml/min; Est GFR (African American) 18.6; Glucose 219 mg/dl (70-99); Glucose Fasting 219 mg/dl (70-99); Magnesium 2.4 mg/dl (1.8-2.4); Sodium 133 mmol/L (136-145)
[2019-11-28] MEDS ORDERED: ASPIRIN 81 MG CHEW ONE (05:42)
[2019-11-28] MEDS ORDERED: ALBUMIN 25% 50 ML IV ONE (05:45)
[2019-11-28] MEDS ORDERED: POTASSIUM CHLORIDE / WTR 10 MEQ/100 ML PLCT IV SCH (05:46)
[2019-11-28 05:51] LABS: Albumin Globulin Ratio 0.4 (0.9-2); Alkaline Phosphatase 77 U/L (45-117); Bilirubin,Total 0.5 mg/dl (0.2-1); Creatine Kinase 45 U/L (39-308); Creatine Kinase MB < 1.0 ng/ml (0.5-3.6); Globulin 3.6 gm/dl (2.5-4.0); Phosphorus 2.2 mg/dl (2.5-4.9); Total Protein 5.1 gm/dl (6.4-8.2); Troponin I 0.017 ng/ml (0-0.045)
[2019-11-28] MEDS ORDERED: PIPERACILLIN/TAZOBACTAM 4.5 GM in DEXTROSE 5% 100 ML IV ONE (06:00)
[2019-11-28] MEDS ORDERED: VANCOMYCIN HCL 2,000 MG in SODIUM CHLORIDE 0.9% 500 ML IV ONE (06:00)
[2019-11-28] MEDS ORDERED: ONDANSETRON INJ 2 MG/ML 2 ML VIAL ONE (06:02)
[2019-11-28 06:05] LABS: Mean Platelet Volume 11.1 fL (7.4-10.4); Platelet Count 89 K/uL (130-400)
[2019-11-28] MEDS ORDERED: ESMOLOL BOLUS FROM BAG IV ONE (06:05)
[2019-11-28 06:06] LABS: Basophils # (auto) 0.01 K/uL (0-0.2); Basophils % (auto) 0.1 %; Eosinophils # (auto) 0.03 K/uL (0-0.5); Eosinophils % (auto) 0.2 %; Immature Granulocytes # (auto) 0.09 K/uL (0.00-0.02); Immature Granulocytes % (auto) 0.7 %; Lymphocytes # (auto) 0.46 K/uL (1.2-3.4); Lymphocytes % (auto) 3.7 %; Monocytes # (auto) 1.32 K/uL (0.11-0.59); Monocytes % (auto) 10.6 %; Neutrophils # (auto) 10.55 K/uL (1.4-6.5); Neutrophils % (auto) 84.7 %; Platelet Estimate Decreased (Normal)
[2019-11-28] MEDS ORDERED: HEPARIN (PORCINE) 1000 UNIT/ML 10 ML (CATH LAB USE ONLY) ONE (06:23)
[2019-11-28] MEDS ORDERED: fentaNYL citrate 100 MCG/2 ML VIAL ONE (06:23)
[2019-11-28] MEDS ORDERED: NiCARDipine HCL INJ 2.5 MG/ML 10 ML AMP ONE (06:23)
[2019-11-28] MEDS ORDERED: MIDAZOLAM HCL 1 MG/ML 2ML VIAL ONE (06:23)
[2019-11-28] MEDS ORDERED: NITROGLYCERIN/D5W 100MCG/ML 20ML SYR ONE (06:24)
[2019-11-28] MEDS: ONDANSETRON INJ 2 MG/ML 2 ML VIAL IV PRN ×2 (06:26→19:46)
--- NOTE | 2019-11-28 06:58 | Critical Care Consultation ---
Date of Consultation November 28, 2019 Assessment & Plan (1) Admitted to intensive care unit: Reason Critically Ill: 59-year-old male presenting with sepsis with septic shock with new onset chest pain and concerning wide-complex tachyarrhythmia requiring close hemodynamic monitoring and further intervention. NEURO - * CAM ICU: Negative CARDIAC/VASCULAR - * Chest pain and wide-complex tachycardia: * Initial goal to maintain normotensive state. Initially presented with IV fluids. * EKG demonstrates persistent firing with aberrancies in EKG which appear concerning initially for V. tach. * Received IV fluids. Judicious use in the nonischemic cardiomyopathy patient. * Start vasopressor. * Initially started esmolol which did provide some relief of rate. * Despite improvement in pressure and decrease in heart rate, the patient had persistent intense chest pain rating his pain an 8/10. * Discussed with cardiology as well as interventional cardiology. * Patient made heart alert. Will go to the catheterization suite * Monitor on telemetry. RESPIRATORY - * No history of pulmonary disease * Saturating well on 2 L. * Monitor closely for concerns of volume overload in the nonischemic cardiomyopathy patient GI/NUTRITION - * GI assessment with concerns for duodenitis. * While this certainly may be contributing the patient's discomfort, his EKG changes and ongoing chest discomfort certainly warranted cardiac evaluation initially. * Continue with GI recommendations. RENAL/LYTES - * TITA: * In the setting of sepsis. Continue with IV fluid resuscitation. Monitor closely for injury after IV contrast. * Hypokalemia -replace appropriately - * Bauer in place - Strict I&Os. ENDO - * DMII * BSGs per unit protocol. ISS --> gtt per unit policy. HEME - * Stable H&H. ID - * Severe sepsis with septic shock * Likely from LEFT great toe infection. * Gram-positive bacteremia. * Continue with antibiotics. LINES/IV ACCESS - * PIVs x2 * LEFT Radial A-line DVT PROPHYLAXIS - * SCDs I have personally spent 78 minutes of critical care time in the direct management of this patient. This is a life/limb threatening event. This includes time spent evaluating patient, direct bedside care, chart review, placing orders, interpretation of diagnostic studies, discussion with consultants, patient, and family members, as well as other required patient management activities. This time is exclusive of all separately billable procedures, and teaching time and separate from and in addition to any other critical care service time. Thank you for allowing us to participate in the care of this patient. Please refer to my attending physician's documentation for any further recommendations. (2) Chest pain: (3) Wide-complex tachycardia: (4) Sepsis: (5) Duodenitis: (6) Heart failure: (7) Cardiomyopathy: (8) Obesity: (9) Renal insufficiency: (10) Ulcer of left foot due to type 2 diabetes mellitus: (11) TITA (acute kidney injury): (12) Presence of biventricular implantable cardioverter-defibrillator (ICD): (13) Splenic infarct: Supervising Physician Co-Signing Physician Notes I was made aware of this patient by telephone. Initial plan was probable intubation and emergent cardioversion however the patient's vitals improved with medications and stabilized allowing him to go to cardiac catheterization. Please refer to my documentation for additional events. I agree with the above. History of Present Illness Attending Physician: Nasir Myles MD History of Present Illness Patient is a 59-year-old female with a significant past medical history of nonischemic cardiomyopathy, CHF, diabetes, hypertension, hyperlipidemia, status post AICD, diabetic foot ulcer with possible osteomyelitis, and duodenitis. Patient presented this facility with right upper quadrant abdominal pain. He reports pain with eating and drinking. During evaluation of the abdomen, CT noted splenic infarcts with fluid around the duodenum and bilateral pleural effusions. Patient was found to have gram-positive bacteremia and currently was on Zosyn and vancomycin. There was concern for acute kidney injury with ongoing use of Zosyn and vancomycin. They were discontinued. In the foil operator hours, the patient was noted to developed what appeared to be a wide-complex tachyarrhythmia. He subsequently developed hypotension with extreme chest discomfort. Patient was transferred to the ICU for further evaluation and management. On arrival in the ICU, patient is awake, alert, and oriented. His systolic blood pressure was in the 60s. Heart rate on monitor appears to be almost a V. tach with occasional firing of pacemaker. Patient complains of intense central chest pain with radiation to his upper back and head. He reports ongoing abdominal pain which prompted his visit to the emergency department 2 days ago. He denies nausea or vomiting. No blurred or double vision. No slurred speech or facial droop. No pleuritic pain. No shortness of breath. No nausea or vomiting. Allergies Allergy/AdvReac Type Severity Reaction Status Date / Time No Known Allergies Allergy Unverified 11/26/19 10:57 Home Medications Home Medications Medication Instructions Recorded Confirmed Type aspirin [Aspir-81] 81 mg PO QAM 11/26/19 11/26/19 History atorvastatin 80 mg PO QAM 11/26/19 11/26/19 History canagliflozin [Invokana] 300 mg PO QAM 11/26/19 11/26/19 History dulaglutide [Trulicity] 1.5 mg SUBCUT MOLINA 11/26/19 11/26/19 History furosemide 20 mg PO BID 11/26/19 11/26/19 History insulin glargine [Lantus Solostar 20 unit SUBCUT HS 11/26/19 11/26/19 History U-100 Insulin] metformin 1,000 mg PO BIDM 11/26/19 11/26/19 History vfcpvkoc-xqj-dcrig-vit K-lycop 1 tab PO QAM 11/26/19 11/26/19 History [Men's Multivitamin] nitroglycerin [Nitrostat] 0.4 mg SUBLINGUAL UD PRN 11/26/19 11/26/19 History sacubitril-valsartan [Entresto] 1 tab PO BID 11/26/19 11/26/19 History Patient History Medical History Anemia Cardiomyopathy Diabetic neuropathy Duodenitis Dyslipidemia Heart failure Hypertension Hyponatremia Injury of left shoulder (Inactive) 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 Lyme disease Obesity Renal insufficiency Splenic infarct (Acute) Work related injury (Inactive) Surgical History History of colonoscopy History of esophagogastroduodenoscopy (EGD) Presence of biventricular implantable cardioverter-defibrillator (ICD) Status post amputation of toe of right foot Picture [place] teeth extracted Family History Father Heart disease Social History Preferred Language: Chinese Communication Ability: Effective Thread Separator Required: No Beliefs That Will Affect Care: None marital status: Single Current Living Situation: Alone Other Information That Helps Us Care for You: No Feels Safe at Home: Yes Safety Concerns: Feels Safe At This Time Smoking Status: Never smoker Hx Alcohol Use: No Hx Substance Use: No Review of Systems Review of Systems: A complete 10 point review of systems was reviewed with the patient with pertinent positives and negatives as per history of present illness. All else were negative. Physical Exam Physical Exam: VITAL SIGNS - Vital signs and nursing notes were reviewed. GENERAL - 59-year-old male appearing older than his stated age who is in moderate distress. Communicates well with provider and answers questions appropriately. HEAD - NC/AT. EYES - PERRL with EOMI bilaterally. Sclera anicteric. EARS - No deformities of external structures noted on gross examination bilaterally. NOSE - Midline and without cyanosis. MOUTH/OROPHARYNX - Without perioral cyanosis. Buccal mucosa pink and dry and without leukoplakia. NECK - Neck with FROM. Supple to palpation. LUNGS - Chest wall symmetric without accessory muscle use, intercostals retractions, or central cyanosis. Normal vesicular breath sounds CTA B/L. No wheezes, rales, or rhonchi appreciated. CARDIAC - RRR with S1/S2. No murmur, rubs, or gallops appreciated. No reproducible tenderness to palpation appreciated over the anterior chest wall. ABDOMEN - Abdominal contour obese without pulsations or visible masses. BS normoactive all four quadrants. No tenderness, palpable masses, hepatosplenomegaly, or ascites noted. EXTREMITIES -mottling of the lower extremities appreciated bilaterally. Eschar noted to the LEFT second toe. NEUROLOGIC - Cranial nerves II through XII grossly intact. Sensory intact to light touch throughout. PSYCH - A&Ox3 and cooperates fully with examiner. Pt is very pleasant and interacts well with examiner. Results & Data Results & Data ([facility]) Vital Signs (Past 12 Hours) Vital Signs Temp Pulse Pulse Pulse Resp BP BP 11/28/19 04:23 76/36 L 11/28/19 04:18 92/57 L 11/28/19 04:16 77/35 L 11/28/19 04:12 58/34 L 11/28/19 03:26 87/51 L 11/28/19 03:15 81/47 L 11/28/19 03:07 89/51 L 11/28/19 02:47 94/58 L 11/28/19 02:43 91/56 L 11/28/19 02:17 126 H 102/46 L 11/28/19 02:09 128 H 22 99/54 L 11/28/19 02:00 140 H 18 105/62 11/28/19 01:55 135 H 20 81/47 L 11/27/19 23:25 36.8 C 93 H 19 96/56 L 11/27/19 22:20 87 11/27/19 19:04 37.0 C 80 20 102/65 Pulse Ox 11/28/19 04:23 11/28/19 04:18 11/28/19 04:16 11/28/19 04:12 11/28/19 03:26 11/28/19 03:15 11/28/19 03:07 11/28/19 02:47 11/28/19 02:43 11/28/19 02:17 11/28/19 02:09 11/28/19 02:00 11/28/19 01:55 11/27/19 23:25 90 11/27/19 22:20 11/27/19 19:04 91 Coding Level of Care Code Critical Care 1st 30-74 mins Diagnoses Admitted to intensive care unit Z78.9 Chest pain R07.9 Wide-complex tachycardia I47.2 Sepsis A41.9 Duodenitis K29.80 Heart failure I50.9 Cardiomyopathy I42.9 Obesity E66.9 Renal insufficiency N28.9 Ulcer of left foot due to type 2 diabetes mellitus E11.621; L97.529 TITA (acute kidney injury) N17.9 Presence of biventricular implantable cardioverter-defibrillator (ICD) Z95.810 Splenic infarct D73.5 Time Spent (min) 78
--- NOTE | 2019-11-28 07:01 | XRay Report ---
XR chest 1V portable CLINICAL HISTORY: Chest pain. Heart alert. COMPARISON STUDY: Chest radiograph August 09, 2019. FINDINGS: Left subclavian biventricular pacer/AICD is in place. There is moderate cardiomegaly withou t evidence for pulmonary edema. Mild elevation of the right hemidiaphragm is unchanged. There is no p neumothorax. There is a possible small left pleural effusion with mild left basilar opacity. This cou ld be artifactual. IMPRESSION: 1. Moderate cardiomegaly without evidence for pulmonary edema. 2. Possible small left pleural effusion with left basilar opacity. Radiographic follow-up is recommen ded. ACT 112: Negative or not required by law. Electronically signed by: Kael Bryson M.D. 11/28/2019 6:59 AM
--- NOTE | 2019-11-28 07:35 | Post Anesthesia Assessment ---
Date of Service November 28, 2019 Post Sedation Assessment Vital Signs Temp Pulse Pulse Pulse Resp BP BP 11/28/19 06:30 95 H 27 H 11/28/19 06:15 92 H 21 11/28/19 06:00 11/28/19 05:49 125 H 37 H 103/68 11/28/19 05:47 117 H 25 H 11/28/19 05:45 117 H 19 11/28/19 05:31 113 H 30 H 11/28/19 05:29 118 H 31 H 71/41 L 11/28/19 05:18 147 H 34 H 70/40 L 11/28/19 05:16 147 H 34 H 79/47 L 11/28/19 05:15 149 H 33 H 11/28/19 05:00 146 H 21 11/28/19 04:48 122 H 34 H 11/28/19 04:23 11/28/19 04:18 11/28/19 04:16 11/28/19 04:12 11/28/19 03:26 87/51 L 11/28/19 03:15 81/47 L 11/28/19 03:07 11/28/19 02:47 94/58 L 11/28/19 02:43 11/28/19 02:17 126 H 11/28/19 02:09 128 H 22 11/28/19 02:00 140 H 18 11/28/19 01:55 135 H 20 11/27/19 23:25 98.2 F 93 H 19 11/27/19 22:20 87 11/27/19 19:04 98.6 F 80 20 11/27/19 15:55 86 11/27/19 15:43 98.4 F 20 11/27/19 13:04 98.1 F 88 18 11/27/19 12:41 94/65 L 11/27/19 12:40 104/62 11/27/19 12:31 11/27/19 12:26 85 18 11/27/19 12:11 79 18 11/27/19 11:08 98.1 F 80 18 11/27/19 08:30 11/27/19 07:46 98.6 F 94 H 18 89/58 L BP Pulse Ox 11/28/19 06:30 100 11/28/19 06:15 100 11/28/19 06:00 98 11/28/19 05:49 99 11/28/19 05:47 98 11/28/19 05:45 99 11/28/19 05:31 99 11/28/19 05:29 99 11/28/19 05:18 99 11/28/19 05:16 100 11/28/19 05:15 11/28/19 05:00 11/28/19 04:48 94 11/28/19 04:23 76/36 L 11/28/19 04:18 92/57 L 11/28/19 04:16 77/35 L 11/28/19 04:12 58/34 L 11/28/19 03:26 11/28/19 03:15 11/28/19 03:07 89/51 L 11/28/19 02:47 11/28/19 02:43 91/56 L 11/28/19 02:17 102/46 L 11/28/19 02:09 99/54 L 11/28/19 02:00 105/62 11/28/19 01:55 81/47 L 11/27/19 23:25 96/56 L 90 11/27/19 22:20 11/27/19 19:04 102/65 91 11/27/19 15:55 11/27/19 15:43 93/60 L 95 11/27/19 13:04 125/74 96 11/27/19 12:41 11/27/19 12:40 11/27/19 12:31 90/52 L 11/27/19 12:26 84/56 L 93 11/27/19 12:11 86/47 L 99 11/27/19 11:08 102/64 93 11/27/19 08:30 120/85 11/27/19 07:46 92 Recovery Score Activity: Moves 4 extremities Respiration: Deep Breath/Cough Circulation: +/-20% PreAnes Value Consciousness: Fully Awake Oxygen Saturation: > 92% On Room Air Post Anesthesia Score: 10 Discharge Sedation Level of Care: Fast Track Phase II Post Sedation Plan On clinical assessment, the patient appears to have tolerated the sedation without complications. Patient is recovering as anticipated. Patient will continue to be monitored by nursing and may be discharged when sedation discharge criteria are met per below protocol. Upon Completions of procedure up to 15 minutes continue every 5 minute vital signs and the P.A.R. score; then discharge to a Phase I or Fast Track to Phase II per the following guidelines: * Discharge Patient to appropriate Phase II area if PAR is 8 or greater or return to pre- procedure baseline. The post - procedure orders will be as directed. * If PAR score is less than 8 or not return to pre-procedure baseline then patient will follow Phase I monitoring till PAR is reached for Phase II. The Phase I may be done in procedure room or may call to secure a Phase I area. * If naloxone or flumazenil are used for reversal, hold in Phase I for continued monitoring from when last reversal dose was given for a minimum of 60 minutes or longer pending the nurse and/or physician discretion of patient condition before discharge to Phase II. Please call the Sedation Physician to re-evaluate and complete post-note for discharge to Phase II area. Do NOT discharge from procedure sedation or Phase 1 until post- sedation evaluation note is complete by procedure /sedation MD Sedation Discharge Instructions to be given to the patient at discharge to home.
--- NOTE | 2019-11-28 07:49 | Cardiac Catheterization ---
[facility] Data: [employer] Cardiac Status Clinical evaluation leading to the procedure CAD Presenation: Unstable angina Anginal Classification: CCS IV Heart Failure: NYHA Class: CCS III Cardiogenic Shock within 24 Hours: No Cardiac Arrest within 24 Hours: No Imaging Studies Past 6 Months: No Stress Studies Past 6 Months: No Diagnostic Physicians Name: Evan Liz MD Status: Urgent Closure Device Percutaneous Entry Location: Radial Closure Device: Radial Band Recommendations: Medical Therapy and/or Counseling Intraprocedure Events Significant Disection: No Perforation: No Cardiac Cath Procedure Full Procedure Date November 28, 2019 Pre-Procedure Diagnosis Pre-Procedure Diagnosis: Acute Coronary Syndrome AUC Score AUC Score: 7 Post-Procedure Diagnosis Post-Procedure Diagnosis: Moderate CAD and Normal Intracardiac Pressures Procedure(s) Performed Procedure(s) Performed: Coronary Angiography, Left Heart Cath and Ultrasound Guided Vascular Access Sprinkler Truck Driver Evan Liz MD Family Independence Case Manager(s) Geovany Estimated Blood Loss Estimated Blood Loss: 10 Medication(s) Medication(s): Heparin, Lidocaine 1%, Nicardipine and Versed Summary of Findings Indication: Frequent ventricular ectopy and intermittently paced rhythm, refractory chest pain, suspected ACS Access: 6 Fr slender right radial artery under ultrasound guidance Catheters: [place], pigtail Findings: LM -medium caliber vessel, luminal irregularities LAD -medium caliber vessel, 60% mid LAD stenosis at bifurcation of medium caliber first diagonal. Distal vessel with luminal irregularities and tapers to apex. First diagonal with 50% proximal stenosis. Ramusmedium caliber 50% ostial stenosis Circumflex -medium caliber, 40% ostial stenosis, mid segment luminal irregularities. RCA -dominant, large caliber vessel, no significant disease. LVEDP -17 Arterial Closure: TR band Summary: 1. Moderate nonobstructive coronary artery disease -60% mid LAD involving bifurcation of first diagonal 2. Normal intracardiac filling pressure Recommendations: Patient with TYREL-3 flow throughout left and right coronary system. No obstructive lesions to be causing ongoing severe rest chest pain. Additional 500 cc IV fluids post procedure. Monitor for contrast nephropathy Hemodynamics Rest Ao:: 73/46/60 Final Ao: 91//67 LV: 93/17 Recommendations Recommendations: Medical Therapy and/or Counseling Specimens Specimens: None Radiation Exposure (mGy) 1200 Contrast (mls) 25 Fluids (cc crystalloids) Fluids (cc crystalloids): 100 Drains Drains: None Anesthesia Moderate Procedural Complication(s) None Disposition ICU I attest to the content of the Intraoperative Record and any orders documented therein. Any exceptions are noted below. [facility] Card Cath Procedure Codes Cardiac Catheterization Procedure 1: Cardiovascular Cath Procedures: 38172 Coronaries and LHC (+/-LV) Therapeutic Services & Ancillary Proc Procedure 1: Cardiovascular Tx and Anc Procedures: 69528 Ultrasonic Guidance Vascular Access Moderate Sedation Procedure 1: Sedation/Anesthesia: 19904 Mod Sedation by the same physician;Init15 Min Child Age 5 & Up PG Care Time/CCT Total # of Minutes Spent Total Time Spent with Patient: Total time spent is greater than 50% in coordination of care (as documented) at patient's floor/unit and/or counseling patient:
[2019-11-28] MEDS: INSULIN ASPART 100 UNITS/ML 3 ML PEN SC SCH ×4 (08:28→20:54)
[2019-11-28] MEDS: SUCRALFATE 1 GM/10 ML UDC PO SCH ×4 (08:29→19:47)
[2019-11-28] MEDS: FLUCONAZOLE 100 MG TAB PO SCH (08:30)
[2019-11-28] MEDS: SACUBITRIL-VALSARTAN 49/51 MG TAB PO SCH (08:31)
--- NOTE | 2019-11-28 08:50 | Gastroenterology Progress Note ---
Date of Service November 28, 2019 Assessment & Plan (1) Duodenitis: 59 year old male with epigastric abd pain, nausea s/p EGD w/ christiana esophagitis, duodenitis and clean based ulcers - Continue IV PPI for 24 hours then change to oral bidfor the next 8 weeks. - Carafate 1 gram qid. - Empiric diflucan for 14 days GI will sign off. Recall if needed. Present on Admission?: Yes Admission and Anticipated Discharge Date Admission Date: November 26, 2019 Supervising Physician Co-Signing Physician Notes I have seen and examined the patient and discussed the management with JORGE LUIS Trujillo. Had chest pain and underwent a cardiac cath that was negative. Feeling better today, still with mild epigastric pain. PE unchanged from yesterday - noteable for being oriented to person/place/time, abd soft nt nd +bs, pe as per dannie's note Labs reviewed Would continue PPI, carafate, Diflucan. Recall EGD in 12 weeks. GI will sign off. Subjective Pt was seen and evaluated, chart reviewed Transferred to ICU, concern for cardiac etiology of epigastric pain S/P cardiac cath, negative This AM feeling improved Mild epigaistric pain Continued nausea No vomiting No BM overnight EGD reviewed w/ him again. Review of Systems Constitutional: no fever, no chills and no fatigue Respiratory: no cough and no dyspnea Cardiovascular: no chest pain Gastrointestinal: + abdominal pain and + nausea; no blood in stools and no melena Physical Exam Constitutional: well developed; no acute distress Neck: trachea midline Gastrointestinal (Abdomen): Percussion/Palpation: + abdomen tender and abdomen soft; no guarding, abdomen not rigid and no ascites Skin: no rashes, warm and dry Results & Data ([facility]) Vital Signs (Past 12 Hours) Vital Signs Temp Pulse Pulse Pulse Resp BP BP 11/28/19 06:30 95 H 27 H 11/28/19 06:15 92 H 21 11/28/19 06:00 11/28/19 05:49 125 H 37 H 103/68 11/28/19 05:47 117 H 25 H 11/28/19 05:45 117 H 19 11/28/19 05:31 113 H 30 H 11/28/19 05:29 118 H 31 H 71/41 L 11/28/19 05:18 147 H 34 H 70/40 L 11/28/19 05:16 147 H 34 H 79/47 L 11/28/19 05:15 149 H 33 H 11/28/19 05:00 146 H 21 11/28/19 04:48 122 H 34 H 11/28/19 04:23 11/28/19 04:18 11/28/19 04:16 11/28/19 04:12 11/28/19 03:26 87/51 L 11/28/19 03:15 81/47 L 11/28/19 03:07 11/28/19 02:47 94/58 L 11/28/19 02:43 05 02:17 126 H 11/28/19 02:09 128 H 22 11/28/19 02:00 140 H 18 11/28/19 01:55 135 H 20 11/27/19 23:25 36.8 C 93 H 19 11/27/19 22:20 87 BP Pulse Ox 11/28/19 06:30 100 11/28/19 06:15 100 11/28/19 06:00 98 11/28/19 05:49 99 11/28/19 05:47 98 11/28/19 05:45 99 11/28/19 05:31 99 11/28/19 05:29 99 11/28/19 05:18 99 11/28/19 05:16 100 11/28/19 05:15 11/28/19 05:00 11/28/19 04:48 94 11/28/19 04:23 76/36 L 11/28/19 04:18 92/57 L 11/28/19 04:16 77/35 L 11/28/19 04:12 58/34 L 11/28/19 03:26 11/28/19 03:15 11/28/19 03:07 89/51 L 11/28/19 02:47 11/28/19 02:43 91/56 L 11/28/19 02:17 102/46 L 11/28/19 02:09 99/54 L 11/28/19 02:00 105/62 05 01:55 81/47 L 11/27/19 23:25 96/56 L 90 11/27/19 22:20
--- NOTE | 2019-11-28 08:51 | Cardiology Consultation ---
Date of Consultation November 28, 2019 Assessment & Plan (1) Duodenitis: (2) Cardiomyopathy: (3) Biventricular automatic implantable cardioverter defibrillator in situ: (4) Sepsis associated hypotension: (5) TITA (acute kidney injury): (6) NICM (nonischemic cardiomyopathy): This is a very complex patient with a history of a nonischemic cardiomyopathy who is status post biventricular pacemaker ICD. He presented with abdominal and epigastric discomfort. By EGD he does have duodenal ulcers and esophagitis. An incidental finding on a CT of the abdomen indicates multiple splenic infarcts. His creatinine was normal in July and now he has acute renal failure with a creatinine almost at 4. 2 out of 2 blood cultures are growing staph aureus. He was transferred to the ICU last night with tachycardia, epigastric/chest pain and hypotension. He was taken emergently to the cardiac catheterization lab and found to have no obstructive coronary disease. He is on antibiotics for staph aureus. I will obtain an echocardiogram to help exclude endocarditis. I have consulted nephrology to help with his renal failure. Currently he is on pressors to maintain his blood pressure. He currently has no chest pain but is complaining of abdominal discomfort with tenderness over the epigastric area. History of Present Illness Attending Physician: Quinton Zhao MD History of Present Illness This is a 59-year-old male patient who was admitted with abdominal pain with evidence of a splenic infarct and by EGD Cathy esophagitis and duodenal ulcer. He has a cardiac history that includes a nonischemic cardiomyopathy with a left bundle branch block. His presenting estimated left ventricular ejection fraction was 20-29%. He received an ICD/biventricular pacemaker earlier this year and his most recent echocardiogram indicates his left ventricular ejection fraction improved to 40%. Last evening he suddenly developed severe epigastric abdominal discomfort with a tachycardia and hypotension. At first he was started on an amiodarone infusion. He was eventually transferred to the ICU. Heart alert was called due to the ongoing discomfort. The cardiac cath was completed this morning and he has nonobstructive coronary artery disease. Reviewing the EKGs, it would appear that he may have been in sinus tachycardia with by V pacing. His device will be interrogated later today and hopefully provide some insight. He also has 2 out of 2 blood cultures that are now positive for staph aureus. He does not have chest pain this morning. He states that he has abdominal discomfort and is actually tender over the epigastric area to palpation. Allergies Allergy/AdvReac Type Severity Reaction Status Date / Time No Known Allergies Allergy Unverified 11/26/19 10:57 Home Medications Home Medications Medication Instructions Recorded Confirmed Type aspirin [Aspir-81] 81 mg PO QAM 11/26/19 11/26/19 History atorvastatin 80 mg PO QAM 11/26/19 11/26/19 History canagliflozin [Invokana] 300 mg PO QAM 11/26/19 11/26/19 History dulaglutide [Trulicity] 1.5 mg SUBCUT MOLINA 11/26/19 11/26/19 History furosemide 20 mg PO BID 11/26/19 11/26/19 History insulin glargine [Lantus Solostar 20 unit SUBCUT HS 11/26/19 11/26/19 History U-100 Insulin] metformin 1,000 mg PO BIDM 11/26/19 11/26/19 History xrbbrhkr-prf-hok[place]-vit K-lycop 1 tab PO QAM 11/26/19 11/26/19 History [Men's Multivitamin] nitroglycerin [Nitrostat] 0.4 mg SUBLINGUAL UD PRN 11/26/19 11/26/19 History sacubitril-valsartan [Entresto] 1 tab PO BID 11/26/19 11/26/19 History Patient History Medical History Anemia Cardiomyopathy Diabetic neuropathy Duodenitis Dyslipidemia Heart failure Hypertension Hyponatremia Injury of left shoulder (Inactive) 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 Lyme disease Obesity Renal insufficiency Splenic infarct (Acute) Work related injury (Inactive) Surgical History History of colonoscopy History of esophagogastroduodenoscopy (EGD) Presence of biventricular implantable cardioverter-defibrillator (ICD) Status post amputation of toe of right foot [place] teeth extracted Family History Father Heart disease Social History Preferred Language: Italian Communication Ability: Effective [employer] Required: No Beliefs That Will Affect Care: None marital status: Single Current Living Situation: Alone Other Information That Helps Us Care for You: No Feels Safe at Home: Yes Safety Concerns: Feels Safe At This Time Smoking Status: Never smoker Hx Alcohol Use: No Hx Substance Use: No Review of Systems Review of Systems: All systems reviewed & are unremarkable except as noted in HPI & below Nothing additional to add Physical Exam Physical Exam: General: no acute distress and stated age Head: normocephalic, no masses, lesions, tenderness or abnormalities Eyes: conjunctiva are pink and non-injected, sclera clear Neck: supple, no adenopathy, no bruits, normal jugular venous pulse, no hepatojugular reflux Chest: normal shape and normal respiratory effort Lungs: clear to auscultation and percussion Cardiac Exam: - regular rate & rhythm, no murmurs gallops or rubs - normal S1, normal S2 Pulses: 2(+) throughout Abdomen: abdomen soft, non-tender, no abnormal masses and no hepatosplenomegaly Musculoskeletal: no gait disturbance, no joint inflammation, no deforming arthritis Extremities: no edema and no cyanosis Neuro: grossly normal exam Results & Data ([facility]) Vital Signs (Past 12 Hours) Vital Signs Temp Pulse Pulse Pulse Resp BP BP 11/28/19 06:30 95 H 27 H 11/28/19 06:15 92 H 21 11/28/19 06:00 11/28/19 05:49 125 H 37 H 103/68 11/28/19 05:47 117 H 25 H 11/28/19 05:45 117 H 19 11/28/19 05:31 113 H 30 H 11/28/19 05:29 118 H 31 H 71/41 L 11/28/19 05:18 147 H 34 H 70/40 L 11/28/19 05:16 147 H 34 H 79/47 L 11/28/19 05:15 149 H 33 H 11/28/19 05:00 146 H 21 11/28/19 04:48 122 H 34 H 11/28/19 04:23 11/28/19 04:18 11/28/19 04:16 11/28/19 04:12 11/28/19 03:26 87/51 L 11/28/19 03:15 81/47 L 11/28/19 03:07 11/28/19 02:47 94/58 L 11/28/19 02:43 11/28/19 02:17 126 H 11/28/19 02:09 128 H 22 11/28/19 02:00 140 H 18 11/28/19 01:55 135 H 20 11/27/19 23:25 36.8 C 93 H 19 11/27/19 22:20 87 BP Pulse Ox 11/28/19 06:30 100 11/28/19 06:15 100 11/28/19 06:00 98 11/28/19 05:49 99 11/28/19 05:47 98 11/28/19 05:45 99 11/28/19 05:31 99 11/28/19 05:29 99 11/28/19 05:18 99 11/28/19 05:16 100 11/28/19 05:15 11/28/19 05:00 11/28/19 04:48 94 11/28/19 04:23 76/36 L 11/28/19 04:18 92/57 L 11/28/19 04:16 77/35 L 11/28/19 04:12 58/34 L 11/28/19 03:26 11/28/19 03:15 11/28/19 03:07 89/51 L 11/28/19 02:47 11/28/19 02:43 91/56 L 11/28/19 02:17 102/46 L 11/28/19 02:09 99/54 L 11/28/19 02:00 105/62 11/28/19 01:55 81/47 L 11/27/19 23:25 96/56 L 90 11/27/19 22:20 Laboratory Results Laboratory Results - last 24 hr 11/27/19 11/27/19 11/27/19 11:25 12:16 13:17 WBC RBC Hgb Hct MCV MCH MCHC RDW Std Deviation RDW Coeff of Cristela Plt Count MPV Immature Gran % (Auto) Neut % (Auto) Lymph % (Auto) [place] % (Auto) Eos % (Auto) Baso % (Auto) Immature Gran # (Auto) Neut # (Auto) Lymph # (Auto) [place] # (Auto) Eos # (Auto) Baso # (Auto) Platelet Estimate PT INR APTT PTT Ratio Sodium Potassium Chloride Carbon Dioxide Anion Gap BUN Creatinine Est Cr Clr Drug Dosing Est GFR ( Amer) Est GFR (Non-Af Amer) BUN/Creatinine Ratio Glucose POC Glucose 307 H* 295 H 287 H Fasting Glucose Lactate Calcium Phosphorus Magnesium Total Bilirubin AST ALT Alkaline Phosphatase Lactate Dehydrogenase Total Creatine Kinase CK-MB (CK-2) CK/CKMB % Calc Troponin I Total Protein Albumin Globulin Albumin/Globulin Ratio Urine Color Urine Appearance Urine pH Ur Specific Carson Urine Protein Urine Glucose (UA) Urine Ketones Urine Blood Urine Nitrite Urine Bilirubin Urine Urobilinogen Ur Leukocyte Esterase Urine WBC (Auto) Urine RBC (Auto) U Hyaline Cast (Auto) U Epithel Cells (Auto) Urine Bacteria (Auto) Urine Yeast Urine Osmolality Urine Sodium Urine Potassium Urine Chloride 11/27/19 11/27/19 11/27/19 15:40 15:40 15:40 WBC RBC Hgb Hct MCV MCH MCHC RDW Std Deviation RDW Coeff of Cristela Plt Count MPV Immature Gran % (Auto) Neut % (Auto) Lymph % (Auto) [place] % (Auto) Eos % (Auto) Baso % (Auto) Immature Gran # (Auto) Neut # (Auto) Lymph # (Auto) [place] # (Auto) Eos # (Auto) Baso # (Auto) Platelet Estimate PT INR APTT PTT Ratio Sodium Potassium Chloride Carbon Dioxide Anion Gap BUN Creatinine Est Cr Clr Drug Dosing Est GFR ( Amer) Est GFR (Non-Af Amer) BUN/Creatinine Ratio Glucose POC Glucose Fasting Glucose Lactate Calcium Phosphorus Magnesium Total Bilirubin AST ALT Alkaline Phosphatase Lactate Dehydrogenase Total Creatine Kinase CK-MB (CK-2) CK/CKMB % Calc Troponin I Total Protein Albumin Globulin Albumin/Globulin Ratio Urine Color Dark Yellow Urine Appearance Turbid A Urine pH 5.0 Ur Specific [place] 1.043 H Urine Protein 1+ H Urine Glucose (UA) 3+ H Urine Ketones Negative Urine Blood 1+ H Urine Nitrite Negative Urine Bilirubin Negative Urine Urobilinogen Negative Ur Leukocyte Esterase Negative Urine WBC (Auto) >30 H Urine RBC (Auto) 0-4 U Hyaline Cast (Auto) 0 U Epithel Cells (Auto) 0-5 Urine Bacteria (Auto) 3+ H Urine Yeast Not Reportable Urine Osmolality 470 L Urine Sodium 7 Urine Potassium 56.6 Urine Chloride < 10 11/27/19 11/27/19 11/27/19 16:12 16:54 16:54 WBC 9.36 RBC 4.21 L Hgb 11.7 L Hct 35.4 L MCV 84.1 MCH 27.8 MCHC 33.1 RDW Std Deviation 47.0 H RDW Coeff of Cristela 15.1 H Plt Count 112 L MPV 10.6 H Immature Gran % (Auto) 0.9 Neut % (Auto) 87.0 Lymph % (Auto) 3.1 [place] % (Auto) 8.7 Eos % (Auto) 0.2 Baso % (Auto) 0.1 Immature Gran # (Auto) 0.08 H Neut # (Auto) 8.15 H Lymph # (Auto) 0.29 L [place] # (Auto) 0.81 H Eos # (Auto) 0.02 Baso # (Auto) 0.01 Platelet Estimate PT INR APTT PTT Ratio Sodium 129 L Potassium 3.5 Chloride 98 Carbon Dioxide 22 Anion Gap 9.0 BUN 71 H Creatinine 3.36 H D Est Cr Clr Drug Dosing 32.9 Est GFR ( Amer) 22.3 Est GFR (Non-Af Amer) 19.2 BUN/Creatinine Ratio 21.2 H Glucose 276 H POC Glucose 311 H* Fasting Glucose Lactate Calcium 7.7 L Phosphorus Magnesium Total Bilirubin AST ALT Alkaline Phosphatase Lactate Dehydrogenase Total Creatine Kinase CK-MB (CK-2) CK/CKMB % Calc Troponin I Total Protein Albumin Globulin Albumin/Globulin Ratio Urine Color Urine Appearance Urine pH Ur Specific Carson Urine Protein Urine Glucose (UA) Urine Ketones Urine Blood Urine Nitrite Urine Bilirubin Urine Urobilinogen Ur Leukocyte Esterase Urine WBC (Auto) Urine RBC (Auto) U Hyaline Cast (Auto) U Epithel Cells (Auto) Urine Bacteria (Auto) Urine Yeast Urine Osmolality Urine Sodium Urine Potassium Urine Chloride 11/27/19 11/28/19 11/28/19 20:05 05:10 05:10 WBC 12.46 H RBC 3.87 L Hgb 10.8 L Hct 32.7 L MCV 84.5 MCH 27.9 MCHC 33.0 RDW Std Deviation 47.2 H RDW Coeff of Cristela 15.2 H Plt Count 89 L MPV 11.1 H Immature Gran % (Auto) 0.7 Neut % (Auto) 84.7 Lymph % (Auto) 3.7 [place] % (Auto) 10.6 Eos % (Auto) 0.2 Baso % (Auto) 0.1 Immature Gran # (Auto) 0.09 H Neut # (Auto) 10.55 H Lymph # (Auto) 0.46 L [place] # (Auto) 1.32 H Eos # (Auto) 0.03 Baso # (Auto) 0.01 Platelet Estimate Decreased L PT INR APTT PTT Ratio Sodium 133 L Potassium 3.0 L Chloride 103 Carbon Dioxide 11 L Anion Gap 19.0 H BUN 78 H Creatinine 3.90 H D Est Cr Clr Drug Dosing 28.3 Est GFR ( Amer) 18.6 Est GFR (Non-Af Amer) 16.0 BUN/Creatinine Ratio 19.9 Glucose 219 H POC Glucose 253 H Fasting Glucose 219 H Lactate Calcium 6.7 L Phosphorus 2.2 L Magnesium 2.4 Total Bilirubin 0.5 AST 21 ALT 25 Alkaline Phosphatase 77 Lactate Dehydrogenase Total Creatine Kinase 45 CK-MB (CK-2) < 1.0 CK/CKMB % Calc TNP Troponin I 0.017 Total Protein 5.1 L D Albumin 1.5 L Globulin 3.6 Albumin/Globulin Ratio 0.4 L Urine Color Urine Appearance Urine pH Ur Specific [place] Urine Protein Urine Glucose (UA) Urine Ketones Urine Blood Urine Nitrite Urine Bilirubin Urine Urobilinogen Ur Leukocyte Esterase Urine WBC (Auto) Urine RBC (Auto) U Hyaline Cast (Auto) U Epithel Cells (Auto) Urine Bacteria (Auto) Urine Yeast Urine Osmolality Urine Sodium Urine Potassium Urine Chloride 11/28/19 11/28/19 11/28/19 05:10 05:10 05:14 WBC RBC Hgb Hct MCV MCH MCHC RDW Std Deviation RDW Coeff of Cristela Plt Count MPV Immature Gran % (Auto) Neut % (Auto) Lymph % (Auto) [place] % (Auto) Eos % (Auto) Baso % (Auto) Immature Gran # (Auto) Neut # (Auto) Lymph # (Auto) [place] # (Auto) Eos # (Auto) Baso # (Auto) Platelet Estimate PT 12.4 H INR 1.2 H APTT 35.2 H PTT Ratio 1.3 Sodium Potassium Chloride Carbon Dioxide Anion Gap BUN Creatinine Est Cr Clr Drug Dosing Est GFR ( Amer) Est GFR (Non-Af Amer) BUN/Creatinine Ratio Glucose POC Glucose Fasting Glucose Lactate 1.3 Calcium Phosphorus Magnesium Total Bilirubin AST ALT Alkaline Phosphatase Lactate Dehydrogenase 209 Total Creatine Kinase CK-MB (CK-2) CK/CKMB % Calc Troponin I Total Protein Albumin Globulin Albumin/Globulin Ratio Urine Color Urine Appearance Urine pH Ur Specific [place] Urine Protein Urine Glucose (UA) Urine Ketones Urine Blood Urine Nitrite Urine Bilirubin Urine Urobilinogen Ur Leukocyte Esterase Urine WBC (Auto) Urine RBC (Auto) U Hyaline Cast (Auto) U Epithel Cells (Auto) Urine Bacteria (Auto) Urine Yeast Urine Osmolality Urine Sodium Urine Potassium Urine Chloride 11/28/19 07:46 WBC RBC Hgb Hct MCV MCH MCHC RDW Std Deviation RDW Coeff of Cristela Plt Count MPV Immature Gran % (Auto) Neut % (Auto) Lymph % (Auto) [place] % (Auto) Eos % (Auto) Baso % (Auto) Immature Gran # (Auto) Neut # (Auto) Lymph # (Auto) [place] # (Auto) Eos # (Auto) Baso # (Auto) Platelet Estimate PT INR APTT PTT Ratio Sodium Potassium Chloride Carbon Dioxide Anion Gap BUN Creatinine Est Cr Clr Drug Dosing Est GFR ( Amer) Est GFR (Non-Af Amer) BUN/Creatinine Ratio Glucose POC Glucose 195 H Fasting Glucose Lactate Calcium Phosphorus Magnesium Total Bilirubin AST ALT Alkaline Phosphatase Lactate Dehydrogenase Total Creatine Kinase CK-MB (CK-2) CK/CKMB % Calc Troponin I Total Protein Albumin Globulin Albumin/Globulin Ratio Urine Color Urine Appearance Urine pH Ur Specific [place] Urine Protein Urine Glucose (UA) Urine Ketones Urine Blood Urine Nitrite Urine Bilirubin Urine Urobilinogen Ur Leukocyte Esterase Urine WBC (Auto) Urine RBC (Auto) U Hyaline Cast (Auto) U Epithel Cells (Auto) Urine Bacteria (Auto) Urine Yeast Urine Osmolality Urine Sodium Urine Potassium Urine Chloride Diagnostic Findings Cardiac catheterization shows nonobstructive coronary artery disease. The aortic valve was crossed with an LVEDP of 17. Medications Administered Current Inpatient Medications Acetaminophen (Tylenol) 650 mg PO Q4H PRN PRN Reason: Pain or Fever Stop: 12/26/19 16:14 Al Hydrox/Mg Hydrox/Simethicone (Maalox) 15 ml PO Q4H PRN PRN Reason: Dyspepsia Stop: 12/26/19 16:14 Atorvastatin Calcium [facility]) [facility] Stop: 12/27/19 08:59 Last Admin: 11/28/19 09:10 Dose: 80 mg Documented by: Dextrose (Dextrose 50%) 25 - 50 ml IV UD PRN; Protocol PRN Reason: Hypoglycemia Protocol Stop: 12/26/19 16:14 Fluconazole (Diflucan) 200 mg PO QAM [facility]; Protocol Stop: 12/07/19 16:14 Last Admin: 11/28/19 08:30 Dose: 200 mg Documented by: Glucagon (Glucagen) 1 mg SQ UD PRN; Protocol PRN Reason: Hypoglycemia Protocol Stop: 12/26/19 16:14 Glucose (Dex4 Glucose) 4 - 8 tabs PO UD PRN; Protocol PRN Reason: Hypoglycemia Protocol Stop: 12/26/19 16:14 Glucose (Glucose 40%) 15 - 30 gm PO UD PRN; Protocol PRN Reason: Hypoglycemia Protocol Stop: 12/26/19 16:14 Hydromorphone HCl (Dilaudid) 0.5 mg IV Q6 PRN PRN Reason: Severe Pain Stop: 12/10/19 16:14 Last Admin: 11/27/19 08:37 Dose: 0.5 mg Documented by: Pantoprazole Sodium 40 mg/ (Syringe) 10 mls @ 5 mls/min IV BID [facility] Stop: 12/26/19 20:59 Last Admin: 11/27/19 20:42 Dose: 5 mls/min Documented by: Piperacillin Sod/Tazobactam (Sod 4.5 gm/ Dextrose) 120 mls @ 30 mls/hr IV Q8H [facility]; Protocol Stop: 11/30/19 11:59 Norepinephrine Bitartrate 8 mg (/ Dextrose) 508 mls @ 23.432 mls/hr IV .[id number] [facility]ULI; Protocol Stop: 12/28/19 05:29 Last Admin: 11/28/19 05:28 Dose: 0.05 mcg/kg/min, 23.4 mls/hr Documented by: Esmolol HCl (Brevibloc) 2,500 mg in 250 mls @ 36.9 mls/hr IV .[id number] [facility]ULI; Protocol Stop: 12/28/19 05:29 Last Admin: 11/28/19 05:28 Dose: 50 mcg/kg/min, 36.9 mls/hr Documented by: Potassium Chloride (K Kings / Wtr) 10 meq in 100 mls @ 100 mls/hr IV Q1H [facility] Stop: 11/28/19 09:45 Last Admin: 11/28/19 09:18 Dose: 100 mls/hr Documented by: Insulin Aspart (Novolog Flexpen) 0 units SC ACHS [facility] Stop: 12/26/19 17:14 Last Admin: 11/28/19 08:28 Dose: 8 units Documented by: Insulin Glargine (Lantus Solostar Pen) 10 units SC HS [facility] Stop: 12/26/19 20:59 Last Admin: 11/27/19 20:43 Dose: 10 units Documented by: Miscellaneous (Carbohydrates For Hypoglycemia) 15 - 30 gm PO UD PRN PRN Reason: Hypoglycemia Protocol Stop: 12/26/19 16:14 Miscellaneous Information (Consult) 1 ea N/A UD PRN PRN Reason: Consult Stop: 12/28/19 04:54 Miscellaneous Information (Consult) 1 ea N/A UD PRN PRN Reason: Consult Stop: 12/28/19 04:54 Ondansetron HCl (Zofran) 4 mg IV Q4H PRN PRN Reason: Nausea Stop: 12/28/19 06:00 Last Admin: 11/28/19 06:26 Dose: 4 mg Documented by: Oxycodone HCl (Roxicodone Immediate Rel) 5 mg PO Q6H PRN PRN Reason: Moderate Pain Stop: 12/10/19 16:49 Last Admin: 11/27/19 20:47 Dose: 5 mg Documented by: Sacubitril/Valsartan (Entresto 49/51mg) 1 tab PO BID [facility] Stop: 12/26/19 20:59 Last Admin: 11/28/19 08:31 Dose: Not Given Documented by: Sucralfate (Carafate) 1 gm PO QID [facility] Stop: 12/27/19 12:59 Last Admin: 11/28/19 08:29 Dose: 1 gm Documented by:
[2019-11-28] MEDS ORDERED: AMIODARONE RATE CHANGE ONE (08:57)
[2019-11-28] MEDS: ATORVASTATIN 40 MG TAB PO SCH (09:10)
--- NOTE | 2019-11-28 09:30 | Procedure Note ---
Procedure Note Date of Service November 28, 2019 Procedure: Arterial Line Placement Attending: Dr. Loza APC: Ulises Marcano PA-C Indication: Monitoring on Pressors Anesthesia: Lidocaine 1% Emergent consent implied in the setting of significant hemodynamic instability and need for close monitoring with potential for chemical versus electroc ardioversion. Patient verbally consents. A time-out was completed verifying correct patient, procedure, site, positioning, and implant(s) or special equipment if applicable. Allens test was performed to ensure adequate perfusion. Patients LEFT wrist was prepped and draped in the usual sterile fashion. Ultrasound guidance was used to aid needle placement. A 20g Arrow arterial line was introduced into the LEFT Radial artery. Catheter was threaded, and the needle was removed with appropriate blood return. Good waveform was observed. The patient tolerated the procedure well. Confirmation of placement with ultrasound. Blood Loss: Minimal Complications: None Procedural Ultrasound Guidance: Procedure Date: 11/28/2019 Indication: Pressors, hemodynamic monitoring Attending: Dr. Elder APC: Ulises Marcano PA-C Artery Identified: YES Line confirmed in Artery with ultrasound: YES Complications: NONE Patient tolerated procedure: WELL Coding CPT Codes Tubes, Drains, and Vasc Access - Tubes, Drains, and Vasc Access: [id number] Place Catheter In Artery ([id number]) [facility] [place] ([place]) Tubes, Drains, and Vasc Access Procedure 1: Tubes, Drains, and Vasc Access: [id number] Place Catheter In Artery
--- NOTE | 2019-11-28 09:35 | Hospitalist Progress Note ---
Date of Service November 28, 2019 Assessment & Plan Admission and Anticipated Discharge Date Admission Date: November 26, 2019 Subjective Last night patient was having tachycardia with wide complex paced rhythm. And was hypotensive. received 1lt fluid bolus but tachycardia was not improving. Started on amiodarone drip. But later became hypotensive and heart rates still in 120's. At that time patient complained of chest pain and transferred to ICU. Patient was started on levophed drip. BP slowly improved and patient was complaining of severe chest pains. Heart rates were still high. EKG still showing wide complex paced rhythm. Heart alert was called to evaluate patient cornaries.Close monitor in ICU Results & Data Results & Data ([facility]) Vital Signs (Past 12 Hours) Vital Signs Temp Pulse Pulse Pulse Resp BP BP 11/28/19 06:30 95 H 27 H 11/28/19 06:15 92 H 21 11/28/19 06:00 11/28/19 05:49 125 H 37 H 103/68 11/28/19 05:47 117 H 25 H 11/28/19 05:45 117 H 19 11/28/19 05:31 113 H 30 H 11/28/19 05:29 118 H 31 H 71/41 L 11/28/19 05:18 147 H 34 H 70/40 L 11/28/19 05:16 147 H 34 H 79/47 L 11/28/19 05:15 149 H 33 H 11/28/19 05:00 146 H 21 11/28/19 04:48 122 H 34 H 11/28/19 04:23 11/28/19 04:18 11/28/19 04:16 11/28/19 04:12 11/28/19 03:26 87/51 L 11/28/19 03:15 81/47 L 11/28/19 03:07 11/28/19 02:47 94/58 L 11/28/19 02:43 11/28/19 02:17 126 H 11/28/19 02:09 128 H 22 11/28/19 02:00 140 H 18 11/28/19 01:55 135 H 20 11/27/19 23:25 36.8 C 93 H 19 11/27/19 22:20 87 BP Pulse Ox 11/28/19 06:30 100 11/28/19 06:15 100 11/28/19 06:00 98 11/28/19 05:49 99 11/28/19 05:47 98 11/28/19 05:45 99 11/28/19 05:31 99 11/28/19 05:29 99 11/28/19 05:18 99 11/28/19 05:16 100 11/28/19 05:15 11/28/19 05:00 11/28/19 04:48 94 11/28/19 04:23 76/36 L 11/28/19 04:18 92/57 L 11/28/19 04:16 77/35 L 11/28/19 04:12 58/34 L 11/28/19 03:26 11/28/19 03:15 11/28/19 03:07 89/51 L 11/28/19 02:47 11/28/19 02:43 91/56 L 11/28/19 02:17 102/46 L 11/28/19 02:09 99/54 L 11/28/19 02:00 105/62 11/28/19 01:55 81/47 L 11/27/19 23:25 96/56 L 90 11/27/19 22:20
[2019-11-28] MEDS ORDERED: POTASSIUM PHOSPHATE 15 MMOL in SODIUM CHLORIDE 0.9% 250 ML IV STA (10:07)
[2019-11-28] MEDS ORDERED: DAPTOMYCIN CONSULT ACTIVE PRN (10:08)
[2019-11-28] MEDS ORDERED: PHARMACY GLYCEMIC MGMT CONSULT PRN (10:08)
[2019-11-28] MEDS: PANTOprazole 40 MG in SYRINGE 0 ML IV SCH ×2 (10:20→19:46)
[2019-11-28] MEDS ORDERED: INSULIN GLARGINE SOLOSTAR 100 UNITS/ML 3 ML PEN SC ONE (11:15)
--- NOTE | 2019-11-28 11:40 | Pharmacy Report ---
Glycemic Control Consultation - Date of Service November 28, 2019 - Scope Scope: Glycemic Pharmacist consulted for glycemic control and to write orders per LT[facility], located within [facility] inpatient glycemic control protocol. - Objective Weight: 123 kg Accuchecks BSG (last 24hrs): 11/27/19 11/27/19 11/27/19 11:25 12:16 13:17 Glucose POC Glucose 307 H* 295 H 287 H Fasting Glucose 11/27/19 11/27/19 11/27/19 16:12 16:54 20:05 Glucose 276 H POC Glucose 311 H* 253 H Fasting Glucose 11/28/19 11/28/19 05:10 07:46 Glucose 219 H POC Glucose 195 H Fasting Glucose 219 H Laboratory Data (last 24hrs): 11/27/19 11/28/19 16:54 05:10 Potassium 3.5 3.0 L Carbon Dioxide 22 11 L Anion Gap 9.0 19.0 H Creatinine 3.36 H D 3.90 H D Est Cr Clr Drug Dosing 32.9 28.3 HbA1c: Hemoglobin A1c 7.8 % (4.5-5.6) H 11/27/19 06:40 - Recent Pertinent Medications Outpatient Anti-diabetic Regimen: * Lantus 20 units SC HS * Metformin * Dulaglutide * Canagliflozin * A1c = 7.8 % on 11/27/19 The patient is currently receiving: * Basal insulin: Lantus 10 units SC HS * Correctional Insulin: Novolog Correction per scale ACHS Goal Range: Low 100 mg/dL - High 120 mg/dL Correction Factor: 20 mg/dL/unit (tightened to 10 mg/dL/unit last night) * Prandial insulin: Per carb ratio of 1 unit per 5 grams CHO consumed Risk Factors for Insulin Resistance: * Infection: sepsis/MSSA bacteremia 2nd osteomyelitis * Pressors: norepinephrine * IVF: D5-containing infusion stopped 11/26 AM * Recent Surgery: POD 0 s/p cardiac cath * Diet: T2DM - Assessment & Plan Assessment & Plan: ASSESSMENT: * 59 yo M with sepsis/MSSA bacteremia 2nd osteomyelitis complicated by splenic infarct with new onset chest pain yesterday evening with wide-complex tachyarrhythmia 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 Will add two overnight checks * Worsening TITA noted - may increase insulin sensitivity therefore changes to regimen are not aggressive at this time despite significant hyperglycemia n oted yesterday PLAN FOR INPATIENT GLYCEMIC CONTROL: * Continue to hold outpatient oral diabetes medications * Basal insulin * Lantus 10 units SQ x1 now, then 0-15 units BID based on BSG. See MAR for details. * Bolus insulin * NovoLog per scale ACHS or Q6hrs while NPO * Goal Range: Low 120 mg/dL - High 160 mg/dL * Correction Factor: 15 mg/dL/unit * Nutritional / Prandial insulin per carb ratio of 1 unit per 5 grams CHO consumed * Please note that the plan above was derived based on current level of insulin resistance and hospital stress. These recommendations are appropriate for inpatient admission only. Plan of care upon discharge will need to be reassessed to avoid potential outpatient hypo/hyperglycemia. Thank you.
[2019-11-28] MEDS ORDERED: PIPERACILLIN/TAZOBACTAM 4.5 GM in DEXTROSE 5% 100 ML IV SCH (12:00)
[2019-11-28] MEDS: PIPERACILLIN/TAZOBACTAM 3.375 GM in DEXTROSE 5% 100 ML IV SCH ×2 (12:14→19:28)
--- NOTE | 2019-11-28 14:39 | Electrocardiogram Report ---
Test Reason : Blood Pressure : / mmHG Vent. Rate : 139 BPM Atrial Rate : 147 BPM P-R Int : 162 ms QRS Dur : 156 ms QT Int : 304 ms P-R-T Axes : 000 007 196 degrees QTc Int : 462 ms Poor data quality, interpretation may be adversely affected possibly Sinus tachycardia with frequent ventricular-paced complexes and Premature atrial complexes Left bundle branch block Abnormal ECG When compared with ECG of 27-NOV-2019 07:01, Premature atrial complexes are now Present Vent. rate has increased BY 44 BPM Confirmed by Evan Cohen ([id number]) on 11/28/2019 2:39:21 PM Referred By: REFERRED SELF Confirmed By:Xu Cohen
--- NOTE | 2019-11-28 14:41 | Wound Consultation ---
Date of Consultation November 28, 2019 Assessment & Plan (1) Diabetic ulcer of foot associated with type 2 diabetes mellitus, with necrosis of bone: This is a 59-year-old male with diabetic foot ulcer with left second toe with underlying osteomyelitis. Patient is currently in the ICU after exper iencing chest pain. He is also found to have splenic infarcts which are thought to possibly be related to septic emboli. No debridement is required. Wound be painted with Betadine. Continue antibiotics. Patient will likely require amputation when medically stable. However if it is believed that he is being showered with septic emboli secondary to the infection surgery may become more emergent. We will continue to follow. Thank you for limited participate in the care of this patient. History of Present Illness Reason for Consultation: toe wound Attending Physician: Quinton Zhao MD History of Present Illness This is a 59-year-old male with a history of nonischemic cardiomyopathy, CHF and status post ICD placement in July 2019, diabetes mellitus, hypertension and dyslipidemia who was admitted with abdominal pain. Patient was found to have splenic infarcts and duodenitis patient was found to have a wound on his left second toe. Patient developed chest pain and was transferred to ICU. Heart alert was called and patient had a cardiac cath. Cardiac cath showed moderate nonobstructive coronary artery disease with approximately 60% mid LAD involving the bifurcation of the first diagonal. Patient reports he has been dealing with toe wound since August. Reports he has been putting antibiotic ointment and band aid on it. Allergies Allergy/AdvReac Type Severity Reaction Status Date / Time No Known Allergies Allergy Unverified 11/26/19 10:57 Home Medications Home Medications Medication Instructions Recorded Confirmed Type aspirin [Aspir-81] 81 mg PO QAM 11/26/19 11/26/19 History atorvastatin 80 mg PO QAM 11/26/19 11/26/19 History canagliflozin [Invokana] 300 mg PO QAM 11/26/19 11/26/19 History dulaglutide [Trulicity] 1.5 mg SUBCUT MOLINA 11/26/19 11/26/19 History furosemide 20 mg PO BID 11/26/19 11/26/19 History insulin glargine [Lantus Solostar 20 unit SUBCUT HS 11/26/19 11/26/19 History U-100 Insulin] metformin 1,000 mg PO BIDM 11/26/19 11/26/19 History aomgzriz-hpy-xtwxg-vit K-lycop 1 tab PO QAM 11/26/19 11/26/19 History [Men's Multivitamin] nitroglycerin [Nitrostat] 0.4 mg SUBLINGUAL UD PRN 11/26/19 11/26/19 History sacubitril-valsartan [Entresto] 1 tab PO BID 11/26/19 11/26/19 History Patient History Medical History Anemia Cardiomyopathy Diabetic neuropathy Duodenitis Dyslipidemia Heart failure Hypertension Hyponatremia Injury of left shoulder (Inactive) 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 Lyme disease Obesity Renal insufficiency Splenic infarct (Acute) Work related injury (Inactive) Surgical History History of colonoscopy History of esophagogastroduodenoscopy (EGD) Presence of biventricular implantable cardioverter-defibrillator (ICD) Status post amputation of toe of right foot [place] teeth extracted Family History Father Heart disease Social History Preferred Language: O[place]i Communication Ability: Effective Piccoloist Required: No Beliefs That Will Affect Care: None marital status: Single Current Living Situation: Alone Other Information That Helps Us Care for You: No Feels Safe at Home: Yes Safety Concerns: Feels Safe At This Time Smoking Status: Never smoker Hx Alcohol Use: No Hx Substance Use: No Review of Systems Review of Systems: All systems reviewed & are unremarkable except as noted in HPI & below Physical Exam Constitutional: WD/WN, vitals as above Eyes: PERRL, conjunctivae normal, anicteric sclerae ENMT: external ear and nose normal, oropharynx normal Ears: no hearing impairment Skin: Left second toe wound measuring 0.5 x 0.5 cm. Wound is necrotic with black eschar. There is foul odor. There is minimal drainage. Neurologic: awake; not confused Psychiatric: A+Ox3, euthymic affect Results & Data Vital Signs (Past 12 Hours) Vital Signs Temp Pulse Resp BP BP BP Pulse Ox 11/28/19 12:20 92 H 18 96 05/20/20 12:10 90 22 98 05/20/20 12:00 36.5 C 99 H 23 96 05/20/20 11:50 107 H 29 H 98 05/20/20 11:40 99 H 24 97 05/20/20 11:30 109 H 28 H 97 05/20/20 11:20 100 H 24 97 05/20/20 11:15 105 H 27 H 96 05/20/20 11:00 98 H 25 H 97 05/20/20 10:45 111 H 26 H 98 05/20/20 10:30 138 H 24 96 052020 10:15 122 H 26 H 97 05/20/20 10:00 114 H 19 99 05/20/20 09:45 113 H 29 H 97 0520 09:30 116 H 27 H 100 052020 09:15 118 H 19 98 05/2020 09:00 117 H 24 100 05/20/20 08:45 112 H 27 H 98 05/2020 08:30 123 H 29 H 100 052020 08:15 115 H 27 H 100 05/20/20 08:00 36.5 C 117 H 29 H 100 05/20/20 07:45 118 H 10 L 052020 06:30 95 H 27 H 100 0520/20 06:15 92 H 21 100 052020 06:00 98 05/20 05:49 125 H 37 H 103/68 99 05/20/20 05:47 117 H 25 H 98 05/20/20 05:45 117 H 19 99 0520/20 05:31 113 H 30 H 99 0520/20 05:29 118 H 31 H 71/41 L 99 05/20/20 05:18 147 H 34 H 70/40 L 99 05/20/20 05:16 147 H 34 H 79/47 L 100 05/20/20 05:15 149 H 33 H 052020 05:00 146 H 21 052020 04:48 122 H 34 H 94 05/2020 04:23 76/36 L 05/20/20 04:18 92/57 L 05/2020 04:16 77/35 L 052020 04:12 58/34 L 0520/20 03:26 87/51 L 05/20/20 03:15 81/47 L 11/28/19 03:07 89/51 L 11/28/19 02:47 94/58 L 11/28/19 02:43 91/56 L Diagnostic Findings left foot xray 1) abnormal lucency / erosive changes seen at the middle and distal phalanges of second toe. Highly suspicious for osteomyelitis. 2) Abnormal lucency / erosive changes across the interphalangeal joint of first toe. This can be seen in the setting of osteomyelitis / septic arthritis. 3) Fractures at head of the proximal phalanx of the first toe and distal phalanx of second toe. PG Care Time/CCT Total # of Minutes Spent Total Time Spent with Patient: Total time spent is greater than 50% in coordination of care (as documented) at patient's floor/unit and/or counseling patient: Coding Level of Care Code 88301 Inpt Consult Level 3 Diagnoses Diabetic ulcer of foot associated with type 2 diabetes mellitus, with necrosis of bone E11.621; L97.504
--- NOTE | 2019-11-28 14:41 | Electrocardiogram Report ---
Test Reason : Blood Pressure : / mmHG Vent. Rate : 124 BPM Atrial Rate : 120 BPM P-R Int : 272 ms QRS Dur : 172 ms QT Int : 386 ms P-R-T Axes : 000 -13 143 degrees QTc Int : 554 ms Unclear atrial rhythm with ventricular ectopy, a paced ventricular rhythm and fusion beats Abnormal ECG When compared with ECG of 28-NOV-2019 01:55, (unconfirmed) Premature atrial complexes are no longer Present Vent. rate has decreased BY 15 BPM Confirmed by Evan Cohen ([id number]) on 11/28/2019 2:40:55 PM Referred By: REFERRED SELF Confirmed By:Xu Cohen
--- NOTE | 2019-11-28 14:41 | Electrocardiogram Report ---
Test Reason : Blood Pressure : / mmHG Vent. Rate : 142 BPM Atrial Rate : 147 BPM P-R Int : 000 ms QRS Dur : 138 ms QT Int : 362 ms P-R-T Axes : 000 015 194 degrees QTc Int : 556 ms Suspect unspecified pacemaker failure Atrial fibrillation with rapid ventricular response with occasional ventricular-paced complexes and w ith premature ventricular or aberrantly conducted complexes Non-specific intra-ventricular conduction block Abnormal ECG When compared with ECG of 28-NOV-2019 03:07, (unconfirmed) Vent. rate has increased BY 18 BPM Confirmed by Evan Cohen ([id number]) on 11/28/2019 2:41:11 PM Referred By: REFERRED SELF Confirmed By:Xu Cohen
[2019-11-28 15:22] LABS: BUN Creatinine Ratio 19.2 (10-20); Calcium 5.4 mg/dl (8.5-10.1); Creatinine Clr Calc Pharmacy 30.4 ml/min; Est GFR (African American) 20.3; Est GFR (Non-African American) 17.5; Magnesium 2.1 mg/dl (1.8-2.4); Potassium 3.3 mmol/L (3.5-5.1)
--- NOTE | 2019-11-28 15:43 | Hospitalist Progress Note ---
Date of Service November 28, 2019 Assessment & Plan (1) Septic shock: secondary to MSSA bacteremia, Left toe ulcer due to DM type 2, with osteomyelitis -- on Levophed wean off accordingly -- repeat blood cultures: pending -- continue Dapto + Zoysn IV -- Wound Care Consulted (2) Splenic infarct: secondary to above (3) TITA (acute kidney injury): Likely Secondary to Vancomycin, Septic Shock Renal ultrasound did not show any renal artery obstruction and good flow in the veins Vancomycin discontinued management of Sepsis as per above Bank Appraiser consulted (4) Duodenitis: Noted in CAT scan s/p EGD Likely the cause for nausea and vomiting-will give symptomatic management continue Protonix IV (5) Nausea and vomiting: secondary to above much better (6) NICM (nonischemic cardiomyopathy): (7) CHF (congestive heart failure): Chronic Systolic Congestive heart failure and s/p ICD placement in July 2019. Echo completed last week as an outpatient. Seems unlikely to be source of infarcts. Wi EKG completed in ED no new changes. No evidence of ACS and no evidence of acute CHF -- euvolemic (8) DM (diabetes mellitus): Insulin protocol a1c 7.8 (9) HTN (hypertension): hold Sacubitril- Valsartan (10) DVT prophylaxis: SCDs heparin on hold for thrombocytopenia patient and his sister Denies updated over the phone all questions answered they are understanding, agreeable, comfortable with the plan of care Admission and Anticipated Discharge Date Admission Date: November 26, 2019 Subjective ff up for septic shock secondary to bacteremia, left to ulcer with osteomyelitis, and cellulitis transferred to ICU overnight for hypotension seen resting in bed, sleeping but easily awakened states he feel improved compared to yesterday, just tired abdominal pain improving, no nausea denies chills, no pain on the left foot no chest pain, dyspnea, palpitations, dizziness no other symptoms Review of Systems Review of Systems: All systems reviewed & are unremarkable except as noted in HPI & below Physical Exam Physical Exam: General- oriented x 3, not in distress, speaks in sentences wit h no effort or accessory muscle use Eyes- anicteric Neck- no JVD Lungs- clear breath sounds bilaterally, no rales/wheezes Heart- normal rate, regular rhythm; no murmurs Abdomen- normal bowel sounds, nondistended, soft, nontender Extremities- no pretibial edema, no calf tenderness Neuro- alert, oriented x 3; no gross focal neurologic deficits Skin- warm & dry Results & Data Results & Data ([facility]) Vital Signs (Past 12 Hours) Vital Signs Temp Pulse Resp BP BP Pulse Ox 11/28/19 12:20 92 H 18 96 11/28/19 12:10 90 22 98 11/28/19 12:00 36.5 C 99 H 23 96 11/28/19 11:50 107 H 29 H 98 11/28/19 11:40 99 H 24 97 11/28/19 11:30 109 H 28 H 97 11/28/19 11:20 100 H 24 97 11/28/19 11:15 105 H 27 H 96 11/28/19 11:00 98 H 25 H 97 11/28/19 10:45 111 H 26 H 98 11/28/19 10:30 138 H 24 96 11/28/19 10:15 122 H 26 H 97 11/28/19 10:00 114 H 19 99 11/28/19 09:45 113 H 29 H 97 11/28/19 09:30 116 H 27 H 100 11/28/19 09:15 118 H 19 98 11/28/19 09:00 117 H 24 100 11/28/19 08:45 112 H 27 H 98 11/28/19 08:30 123 H 29 H 100 11/28/19 08:15 115 H 27 H 100 11/28/19 08:00 36.5 C 117 H 29 H 100 11/28/19 07:45 118 H 10 L 11/28/19 06:30 95 H 27 H 100 11/28/19 06:15 92 H 21 100 11/28/19 06:00 98 11/28/19 05:49 125 H 37 H 103/68 99 20 05:47 117 H 25 H 98 11/28/19 05:45 117 H 19 99 11/28/19 05:31 113 H 30 H 99 11/28/19 05:29 118 H 31 H 71/41 L 99 20 05:18 147 H 34 H 70/40 L 99 20 05:16 147 H 34 H 79/47 L 100 11/28/19 05:15 149 H 33 H 11/28/19 05:00 146 H 21 11/28/19 04:48 122 H 34 H 94 11/28/19 04:23 76/36 L 11/28/19 04:18 92/57 L 11/28/19 04:16 77/35 L 11/28/19 04:12 58/34 L (1) Nausea and vomiting Vomiting Intractability: unspecified Vomiting type: unspecified Qualified Code(s): R11.2 - Nausea with vomiting, unspecified
[2019-11-28 15:52] LABS: Hematocrit (blood only) 29.9 % (42-52); Mean Corpuscular Hemoglobin 28.2 pg (25-34); Mean Corpuscular Hgb Conc 33.4 g/dL (32-36); Mean Corpuscular Volume 84.2 fL (80-100); Mean Platelet Volume 11.1 fL (7.4-10.4); Platelet Count 122 K/uL (130-400); RDW Coefficient of Variation 15.5 % (11.5-14.5); RDW Standard Deviation 48.2 fL (36.4-46.3); Red Blood Count 3.55 M/uL (4.7-6.1); White Blood Count 19.56 K/uL (4.8-10.8)
--- NOTE | 2019-11-28 16:03 | Communication Note ---
Date of Service: November 28, 2019 Patient was subsequently discussed on multidisciplinary rounds. I discussed the patient with cardiology. During my evaluation the patient was able to move his bowels and passing a lot of gas, he reports that that was significantly improving his pain. I tried to elucidate whether this pain in the chest is separate from his abdominal pain, it is unclear whether the pain he is experiencing is gas pains which is reducing his pain level as he passes gas. It is reassuring that he is underwent a cardiac catheterization and did not find a intervene able lesion to explain the chest pain. We anticipate an evaluation of his pacer/AICD by electrophysiology. He is still requiring minimal doses of vasoactive medications for blood pressure support. It appears via A-line that he needs atrial kick to maintain his blood pressure, at the current moment I believe the risk of advanced vascular access in the form of central venous access outweighs the benefit of continuing vasoactive medications through peripheral IVs given the low dose and under 24 hours duration. Coding Level of Care Code Critical Care alec khant'l 30 min Time Spent (min) 25 Comment I have personally spent 25 minutes of critical care time in the direct management of this patient. This is a life/limb threatening event. This includes time spent evaluating patient, direct bedside care, chart review, placing orders, interpretation of diagnostic studies, discussion with consultants, patient, and/or family members regarding treatment decisions, as well as other required patient management activities. This time is exclusive of all separately billable procedures, and teaching time and separate from and in addition to any other critical care service time.
--- NOTE | 2019-11-28 16:13 | Electrocardiogram Report ---
Test Reason : Blood Pressure : / mmHG Vent. Rate : 113 BPM Atrial Rate : 052 BPM P-R Int : 000 ms QRS Dur : 164 ms QT Int : 392 ms P-R-T Axes : 000 -07 161 degrees QTc Int : 537 ms Ventricular-paced rhythm with occasional [place] conduction and fusion beats Abnormal ECG When compared with ECG of 28-NOV-2019 04:45, (unconfirmed) Vent. rate has decreased BY 29 BPM Confirmed by Evan Cohen ([id number]) on 11/28/2019 4:13:39 PM Referred By: REFERRED SELF Confirmed By:Xu Cohen
[2019-11-28] MEDS ORDERED: fentaNYL citrate 100 MCG/2 ML VIAL IV ONE (16:15)
[2019-11-28] MEDS ORDERED: SUCCINYLCHOLINE CHLORIDE 20 MG/ML 10 ML VIAL IV ONE (16:15)
[2019-11-28] MEDS ORDERED: ETOMIDATE 2 MG/ML 20 ML VIAL IV ONE (16:15)
[2019-11-28] MEDS ORDERED: MIDAZOLAM HCL 5 MG/ML 1 ML VIAL IV ONE (16:15)
--- NOTE | 2019-11-28 16:17 | Electrocardiogram Report ---
Test Reason : Blood Pressure : / mmHG Vent. Rate : 111 BPM Atrial Rate : 111 BPM P-R Int : 000 ms QRS Dur : 152 ms QT Int : 398 ms P-R-T Axes : 056 -13 149 degrees QTc Int : 541 ms Ventricular-paced rhythm with fusion beats Abnormal ECG When compared with ECG of 28-NOV-2019 05:41, (unconfirmed) Vent. rate has decreased BY 2 BPM Confirmed by Evan Cohen ([id number]) on 11/28/2019 4:16:37 PM Referred By: REFERRED SELF Confirmed By:Xu Cohen
--- NOTE | 2019-11-28 17:30 | Nephrology Consultation ---
Date of Consultation November 28, 2019 Assessment & Plan (1) TITA (acute kidney injury): nonoliguric TITA w/ baseline creatinine 1.2 as of July 2019; suspect prerenal components but high risk for ATN as well. likely multifactorial >> he has septic shock and MSSA bacteremia w/ splenic infarcts from diabetic foot ulcer; he was already in renal failure on arrival and has now had 2 IV contrast dye loads for CT scan on admission and L heart cath this AM; he had poor po intake for several days prior to and after presentation and was on medications that can worsen renal failure (sacubitril/valsartan, canagliflozin particularly). Even before septic shock developed his urine was exceptionally concentrated showing dehydration. He had saline for several hours after cardiac cath this am per protocol. -stopped entresto for now -asked pharmacy to dose adjust fluconazole for his degree of renal dysfunction -IV fluid cautiously as below -no indication for acute dialysis but cannot rule out need -repeat UACM tomorrow if improvement in renal function noted today stalls (2) MSSA bacteremia: now on daptomycin; 4/4 bottles on 11/25 +; TTE w/o vegetation or new WMA; ? if splenic infarcts are septic emboli -f/u repeat cultures -defer to primary service to eval source > favor infected toe; no recent dental infections/procedures; also has screws in L shoulder after rotator cuff repair and ICD wires Present on Admission?: Yes (3) Septic shock: continue pressor support and IV fluids as below Present on Admission?: No (4) Electrolyte and fluid disorder: hypokalemia, marked hypocalcemia, very low bicarbonate w/ normal lactate. mag ok -will give 2 gm calcium gluconate now -start bicarb gtt w/ 30 mEq/L K at 80 mL/hr for 2 L hard stop and reassess fluid composition frequently -check bmp and ionized calcium q8hrs and adjust fluids as indicated > next set ordered for 2200 -critical care aware and will address blood sugars (insulin gtt) -low threshold for ABG if any respiratory distress or if labs not responding to bicarb gtt Care coordinated w/ Dr Elder Present on Admission?: No History of Present Illness Reason for Consultation: TITA Requesting Physician: Dr Reed Attending Physician: Quinton Zhao MD History of Present Illness 59-year-old male whom I am asked to see for acute kidney injury was admitted November 25 for nausea vomiting and right-sided abdominal pain; also noted on admission to have L toe ulcer w/ osteomyelitis. CT with IV contrast on admission remarkable for splenic infarctions up to 1.8 cm. Medical history includes chronic systolic heart failure with ejection fraction 25% in the past and most recently 40%, status post July 2019 biventricular ICD placement, obesity, diabetes on insulin metformin Trulicity and Invokana, coronary artery disease, hyperlipidemia. He underwent EGD and was noted to have 2 clean-based duodenal ulcers as well as gastritis and esophagitis. Admission cultures are growing 4 out of 4 bottles of MSSA. Overnight into this morning he went into wide-complex tachycardia with symptomatic hypotension and severe chest pain. He was moved to the ICU and started on pressors; a heart alert was called. Cardiac cath later this morning showed nonobstructive coronary artery disease. His baseline creatinine is 1.2 most recently in July of this year. His creatinine on presentation was 1.5; it has since then progressed upward to peak this morning a t 3.9 with repeat level this afternoon at 3.6. Allergies Allergy/AdvReac Type Severity Reaction Status Date / Time No Known Allergies Allergy Unverified 11/26/19 10:57 Home Medications Home Medications Medication Instructions Recorded Confirmed Type aspirin [Aspir-81] 81 mg PO QAM 11/26/19 11/26/19 History atorvastatin 80 mg PO QAM 11/26/19 11/26/19 History canagliflozin [Invokana] 300 mg PO QAM 11/26/19 11/26/19 History dulaglutide [Trulicity] 1.5 mg SUBCUT MOLINA 11/26/19 11/26/19 History furosemide 20 mg PO BID 11/26/19 11/26/19 History insulin glargine [Lantus Solostar 20 unit SUBCUT HS 11/26/19 11/26/19 History U-100 Insulin] metformin 1,000 mg PO BIDM 11/26/19 11/26/19 History xzxhllpl-svw-[id number]-vit K-lycop 1 tab PO QAM 11/26/19 11/26/19 History [Men's Multivitamin] nitroglycerin [Nitrostat] 0.4 mg SUBLINGUAL UD PRN 11/26/19 11/26/19 History sacubitril-valsartan [Entresto] 1 tab PO BID 11/26/19 11/26/19 History Patient History Medical History Anemia Cardiomyopathy Diabetic neuropathy Duodenitis Dyslipidemia Heart failure Hypertension Hyponatremia Injury of left shoulder (Inactive) 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 Lyme disease Obesity Renal insufficiency Splenic infarct (Acute) Work related injury (Inactive) Surgical History History of colonoscopy History of esophagogastroduodenoscopy (EGD) Presence of biventricular implantable cardioverter-defibrillator (ICD) Status post amputation of toe of right foot [place] teeth extracted Family History Father Heart disease Social History Preferred Language: Tongan Communication Ability: Effective Powder Mixer Required: No Beliefs That Will Affect Care: None marital status: Single Current Living Situation: Alone Other Information That Helps Us Care for You: No Feels Safe at Home: Yes Safety Concerns: Feels Safe At This Time Smoking Status: Never smoker Hx Alcohol Use: No Hx Substance Use: No Review of Systems Review of Systems: All systems reviewed & are unremarkable except as noted in HPI & below Constitutional: + fatigue and + anorexia; no fever Cardiovascular: no chest pain and no edema Gastrointestinal: + abdominal pain (epigastric) and + bloating Physical Exam Constitutional: well developed, well nourished, + acute distress (mild w/ tachypnea) and + obese Eyes: EOM intact bilaterally ENMT: Ears: no external ear abnormality Nose: no external nose abnormality Mouth: + dry oral mucous membranes Neck: no nuchal rigidity Respiratory: normal respiratory effort, + labored breathing (mild) and + tachypneic; no respiratory distress and no cough Auscultation: lungs clear to auscultation bilaterally and + diminished lung sounds Cardiovascular: Rate/Rhythm: regular rate and regular rhythm Extremities: no edema Gastrointestinal (Abdomen): Inspection/Auscultation: + abdomen distended, + high-pitched sounds and + hyperactive bowel sounds Percussion/Palpation: + abdomen tender (epigastric), + guarding and abdomen soft Musculoskeletal: no cyanosis or clubbing, extremities motor strength 5/5 Skin: no rashes, warm and dry L foot ulcer not evaluated Neurologic: akers, fluent speech, no tremor Psychiatric: A+Ox3, euthymic affect Genitourinary: mcclelland w/ ample clear urine Results & Data Vital Signs (Past 12 Hours) Vital Signs Temp Pulse Resp BP Pulse Ox 11/28/19 12:20 92 H 18 96 11/28/19 12:10 90 22 98 11/28/19 12:00 36.5 C 99 H 23 96 11/28/19 11:50 107 H 29 H 98 11/28/19 11:40 99 H 24 97 11/28/19 11:30 109 H 28 H 97 11/28/19 11:20 100 H 24 97 11/28/19 11:15 105 H 27 H 96 11/28/19 11:00 98 H 25 H 97 11/28/19 10:45 111 H 26 H 98 11/28/19 10:30 138 H 24 96 11/28/19 10:15 122 H 26 H 97 11/28/19 10:00 114 H 19 99 11/28/19 09:45 113 H 29 H 97 11/28/19 09:30 116 H 27 H 100 11/28/19 09:15 118 H 19 98 11/28/19 09:00 117 H 24 100 11/28/19 08:45 112 H 27 H 98 11/28/19 08:30 123 H 29 H 100 11/28/19 08:15 115 H 27 H 100 11/28/19 08:00 36.5 C 117 H 29 H 100 11/28/19 07:45 118 H 10 L 11/28/19 06:30 95 H 27 H 100 11/28/19 06:15 92 H 21 100 11/28/19 06:00 98 11/28/19 05:49 125 H 37 H 103/68 99 11/28/19 05:47 117 H 25 H 98 11/28/19 05:45 117 H 19 99 11/28/19 05:31 113 H 30 H 99 11/28/19 05:29 118 H 31 H 71/41 L 99 Laboratory Results 11/28/19 14:51 11/28/19 14:51 Urinalysis November 27, 1599: Dark yellow turbid urine with a specific gravity of 1043 and 1+ protein, 3+ glucose, 1+ blood with greater than 30 white cells per high-powered field and 3+ bacteria; all other indices negative Hep C antibody screen negative Diagnostic Findings CT abdomen pelvis with contrast November 25 FINDINGS: Imaged portions of the lower chest partially visualize pacer leads. There are trace bilateral pleural effusions. No pneumatosis, free air or portal venous gas is present. No hepatic lesions are identified. Liver surface is slightly lobulated. There is no biliary or pancreatic ductal dilatation. Moderate pancreatic glandular atrophy is noted. There is no peripancreatic infiltration. There are multiple small peripheral hypodensities within the spleen that measure up to 1.8 cm. The adrenal glands are unremarkable. There are bilateral renal parapelvic cysts. Mild symmetric bilateral perinephric infiltration is noted. There is minimal fluid/infiltration adjacent to the third portion of the duodenum. There is no evidence for a bowel obstruction. No ly mphadenopathy is present. The appendix is normal. Bladder is mildly distended. There are no suspicious osseous lesions. Major vasculature is patent. IMPRESSION: 1. Multiple small peripheral hypodensities within the spleen that measure up to 1.8 cm. These favor small age indeterminate splenic infarcts. 2. Mild fluid adjacent to the third portion of the duodenum. This is likely due to volume overload although duodenitis could appear similar. 3. Moderate pancreatic glandular atrophy. 4. Trace bilateral pleural effusions. Chest x-ray this morning 1. Moderate cardiomegaly without evidence for pulmonary edema. 2. Possible small left pleural effusion with left basilar opacity. Radiographic follow-up is recommended. Gallbladder ultrasound 1. No gallstones or biliary ductal dilatation. 2. Exam compromised by suboptimal penetration. Partially obscured pancreas. 3. Mild coarsening of hepatic echotexture and lobulated liver surface which raise the possibility of cirrhosis. Renal artery duplex: Nonspecific elevated intrarenal resistive indices due possibly to medical renal disease or any number of other etiologies. No renal artery stenosis or hydronephrosis
[2019-11-28] MEDS ORDERED: STAT IV STA (17:56)
[2019-11-28] MEDS ORDERED: CALCIUM GLUCONATE 10% 2,000 MG in SODIUM CHLORIDE 0.9% 50 ML IV ONE (18:00)
[2019-11-28] MEDS ORDERED: FLUCONAZOLE CONSULT ACTIVE PRN (18:01)
[2019-11-28] MEDS: SODIUM BICARBONATE 8.4% 150 MEQ, POTASSIUM CHLORIDE 30 MEQ in DEXTROSE 5% 1,000 ML IV SCH (18:38)
[2019-11-28] MEDS: INSULIN GLARGINE SOLOSTAR 100 UNITS/ML 3 ML PEN SC SCH (20:54)
[2019-11-28] MEDS ORDERED: DAPTOmycin 600 MG in SYRINGE 0 ML IV SCH (21:00)
[2019-11-28 22:30] LABS: BUN Creatinine Ratio 17.3 (10-20); Calcium 7.3 mg/dl (8.5-10.1); Creatinine Clr Calc Pharmacy 22.8 ml/min; Est GFR (African American) 14.3; Est GFR (Non-African American) 12.4
[2019-11-28] MEDS ORDERED: INSULIN HUMAN REGULAR PER UNIT 10 UNITS in SYRINGE 9.9 ML IV ONE (22:45)
[2019-11-28 23:07] LABS: Potassium 3.6 mmol/L (3.5-5.1)
[2019-11-28 23:14] LABS: Beta-Hydroxybutyrate 10.37 mg/dl (0.2-2.81)
[2019-11-29] MEDS: INSULIN ASPART 100 UNITS/ML 3 ML PEN SC SCH ×6 (00:24→20:17)
[2019-11-29] MEDS ORDERED: CALCIUM GLUCONATE 10% 1,000 MG in SODIUM CHLORIDE 0.9% 50 ML IV STA (00:51)
[2019-11-29] MEDS ORDERED: CALCIUM GLUCONATE 10% 2,000 MG in SODIUM CHLORIDE 0.9% 50 ML IV STA (01:02)
[2019-11-29] MEDS ORDERED: STERILE IV SCH ×2 (04:15→04:30)
[2019-11-29] MEDS ORDERED: POTASSIUM ACETATE IV SCH (04:15)
[2019-11-29] MEDS ORDERED: SODIUM BICARBONATE IV SCH ×2 (04:15→04:30)
[2019-11-29] MEDS ORDERED: INSULIN HUMAN REGULAR PER UNIT 10 UNITS in SYRINGE 9.9 ML IV ONE (04:15)
[2019-11-29] MEDS ORDERED: WATER IV SCH ×2 (04:15→04:30)
[2019-11-29] MEDS: PIPERACILLIN/TAZOBACTAM 3.375 GM in DEXTROSE 5% 100 ML IV SCH (04:17)
[2019-11-29] MEDS ORDERED: POTASSIUM CHLORIDE IV SCH (04:30)
[2019-11-29 05:07] LABS: Hematocrit (blood only) 32.6 % (42-52); Mean Corpuscular Hemoglobin 27.6 pg (25-34); Mean Corpuscular Hgb Conc 33.7 g/dL (32-36); Mean Corpuscular Volume 81.7 fL (80-100); Mean Platelet Volume 10.5 fL (7.4-10.4); Platelet Count 150 K/uL (130-400); RDW Coefficient of Variation 15.4 % (11.5-14.5); RDW Standard Deviation 46.1 fL (36.4-46.3); Red Blood Count 3.99 M/uL (4.7-6.1)
[2019-11-29 05:15] LABS: INR 1.4 (0.9-1.1); Prothrombin Time 14.3 Seconds (9.0-12.0)
[2019-11-29] MEDS: NOREPINEPHRINE (Adult) 8 MG in DEXTROSE 5% 500 ML IV SCH ×3 (05:17→16:43)
[2019-11-29 06:48] LABS: Albumin Level 1.4 gm/dl (3.4-5.0); BUN Creatinine Ratio 16.7 (10-20); Bilirubin Direct 0.2 mg/dl (0-0.2); Bilirubin,Total 0.4 mg/dl (0.2-1); Calcium 7.4 mg/dl (8.5-10.1); Creatinine Clr Calc Pharmacy 22.1 ml/min; Est GFR (African American) 13.5; Est GFR (Non-African American) 11.7; Magnesium 2.4 mg/dl (1.8-2.4); Phosphorus 2.3 mg/dl (2.5-4.9); Potassium 3.1 mmol/L (3.5-5.1); Total Protein 5.2 gm/dl (6.4-8.2)
[2019-11-29 07:02] LABS: Beta-Hydroxybutyrate 6.19 mg/dl (0.2-2.81)
[2019-11-29] MEDS ORDERED: POTASSIUM CHLORIDE 20 MEQ TABCR PO ONE ×2 (07:11→22:00)
[2019-11-29] MEDS: PANTOprazole 40 MG in SYRINGE 0 ML IV SCH (08:17)
[2019-11-29] MEDS: SODIUM BICARBONATE 8.4% 150 MEQ, POTASSIUM CHLORIDE 30 MEQ in DEXTROSE 5% 1,000 ML IV SCH (08:17)
[2019-11-29] MEDS: SUCRALFATE 1 GM/10 ML UDC PO SCH ×4 (08:18→20:19)
[2019-11-29] MEDS: FLUCONAZOLE 100 MG TAB PO SCH (08:18)
[2019-11-29] MEDS: INSULIN GLARGINE SOLOSTAR 100 UNITS/ML 3 ML PEN SC SCH ×2 (08:21→20:21)
[2019-11-29] MEDS ORDERED: NovoLIN-R BOLUS FROM BAG IV ONE (10:00)
[2019-11-29] MEDS ORDERED: SODIUM PHOSPHATE 9 MMOL in SODIUM CHLORIDE 0.9% 250 ML IV ONE (10:00)
--- NOTE | 2019-11-29 10:03 | Cardiology Progress Note ---
Date of Service November 29, 2019 Assessment & Plan (1) Duodenitis: (2) Cardiomyopathy: (3) Biventricular automatic implantable cardioverter defibrillator in situ: (4) Sepsis associated hypotension: (5) TITA (acute kidney injury): (6) NICM (nonischemic cardiomyopathy): The patient will most likely need dialysis. Patient is going to have a central line placed by critical care. He is in a paced rhythm and it is difficult to tell if he is in a sinus mechanism but his heart rates are certai nly slower even though he is on norepinephrine to support blood pressure. We will ask for a pacemaker interrogation to determine his underlying atrial rhythm. He is currently clinically stable. He is receiving antibiotics for staph bacteremia. His echo would not indicate findings that would suggest endocarditis. I would continue current management. Reassess after dialysis. I would hold off on a MARGA with his history of esophagitis unless he has continuous bacteremia and positive blood cultures without a source. Subjective The patient is resting comfortably. No new complaints today. Review of Systems Review of Systems: All systems reviewed & are unremarkable except as noted in HPI & below Nothing additional to add. Physical Exam Physical Exam: General: no acute distress and stated age Head: normocephalic, no masses, lesions, tenderness or abnormalities Eyes: conjunctiva are pink and non-injected, sclera clear Neck: supple, no adenopathy, no bruits, normal jugular venous pulse, no hepatojugular reflux Chest: normal shape and normal respiratory effort Lungs: clear to auscultation and percussion Cardiac Exam: - regular rate & rhythm, no murmurs gallops or rubs - normal S1, normal S2 Paced rhythm. Pulses: 2(+) throughout Abdomen: abdomen soft, non-tender, no abnormal masses and no hepatosplenomegaly Musculoskeletal: no gait disturbance, no joint inflammation, no deforming arthritis Extremities: no edema and no cyanosis Neuro: grossly normal exam Results & Data Vital Signs (Past 12 Hours) Vital Signs Temp Pulse Resp BP Pulse Ox 11/29/19 09:00 112 H 25 H 94 11/29/19 08:00 36.6 C 111 H 25 H 94 11/29/19 07:00 112 H 29 H 92/64 L 94 11/29/19 06:30 105 H 24 94 11/29/19 06:20 109 H 28 H 95 11/29/19 05:50 120 H 29 H 94 11/29/19 05:40 115 H 26 H 94 11/29/19 04:30 95 H 28 H 95 11/29/19 04:00 36.9 C 115 H 24 94 11/29/19 03:30 105 H 24 94 11/29/19 03:00 104 H 24 93 11/29/19 02:30 118 H 22 94 11/29/19 01:30 105 H 24 95 11/29/19 01:00 109 H 24 94 11/29/19 00:30 36.9 C 111 H 27 H 95 11/29/19 00:00 106 H 22 95 11/28/19 23:00 114 H 32 H 94 11/28/19 22:30 109 H 30 H 11/28/19 22:00 109 H 24 93 Laboratory Results Laboratory Results - last 24 hr 11/28/19 11/28/19 11/28/19 11:28 11:31 11:31 WBC RBC Hgb Hct MCV MCH MCHC RDW Std Deviation RDW Coeff of Cristela Plt Count MPV PT INR Sodium Potassium Chloride Carbon Dioxide Anion Gap BUN Creatinine Est Cr Clr Drug Dosing Est GFR ( Amer) Est GFR (Non-Af Amer) BUN/Creatinine Ratio Glucose POC Glucose 299 H POC Glucose (other) Lactate 0.9 Calcium Ionized Calcium Phosphorus Magnesium Total Bilirubin Direct Bilirubin AST ALT Alkaline Phosphatase Total Protein Albumin Lipase 129 Beta-Hydroxybutyric Acd Procalcitonin 11/28/19 11/28/19 11/28/19 14:51 14:51 14:51 WBC 19.56 H RBC 3.55 L Hgb 10.0 L Hct 29.9 L MCV 84.2 MCH 28.2 MCHC 33.4 RDW Std Deviation 48.2 H RDW Coeff of Cristela 15.5 H Plt Count 122 L MPV 11.1 H PT INR Sodium 135 L Potassium 3.3 L Chloride 110 H Carbon Dioxide 9 L* Anion Gap 16.0 H BUN 70 H Creatinine 3.63 H Est Cr Clr Drug Dosing 30.4 Est GFR ( Amer) 20.3 Est GFR (Non-Af Amer) 17.5 BUN/Creatinine Ratio 19.2 Glucose 259 H POC Glucose POC Glucose (other) Lactate Calcium 5.4 L* D Ionized Calcium 0.83 L Phosphorus Magnesium 2.1 Total Bilirubin Direct Bilirubin AST ALT Alkaline Phosphatase Total Protein Albumin Lipase Beta-Hydroxybutyric Acd Procalcitonin 11/28/19 11/28/19 11/28/19 16:35 20:35 21:48 WBC RBC Hgb Hct MCV MCH MCHC RDW Std Deviation RDW Coeff of Cristela Plt Count MPV PT INR Sodium 129 L Potassium Chloride 101 Carbon Dioxide 12 L Anion Gap 17.0 H BUN 84 H Creatinine 4.84 H* D Est Cr Clr Drug Dosing 22.8 Est GFR ( Amer) 14.3 Est GFR (Non-Af Amer) 12.4 BUN/Creatinine Ratio 17.3 Glucose 330 H* POC Glucose 284 H 295 H POC Glucose (other) Lactate Calcium 7.3 L D Ionized Calcium Phosphorus Magnesium Total Bilirubin Direct Bilirubin AST ALT Alkaline Phosphatase Total Protein Albumin Lipase Beta-Hydroxybutyric Acd Procalcitonin 11/28/19 11/28/19 11/29/19 21:48 22:47 00:16 WBC RBC Hgb Hct MCV MCH MCHC RDW Std Deviation RDW Coeff of Cristela Plt Count MPV PT INR Sodium Potassium 3.6 Chloride Carbon Dioxide Anion Gap BUN Creatinine Est Cr Clr Drug Dosing Est GFR ( Amer) Est GFR (Non-Af Amer) BUN/Creatinine Ratio Glucose POC Glucose POC Glucose (other) 324 H Lactate Calcium Ionized Calcium 1.00 L Phosphorus Magnesium Total Bilirubin Direct Bilirubin AST ALT Alkaline Phosphatase Total Protein Albumin Lipase Beta-Hydroxybutyric Acd 10.37 H Procalcitonin 11/29/19 11/29/19 11/29/19 04:11 04:42 04:42 WBC 15.90 H RBC 3.99 L Hgb 11.0 L Hct 32.6 L MCV 81.7 MCH 27.6 MCHC 33.7 RDW Std Deviation 46.1 RDW Coeff of Cristela 15.4 H Plt Count 150 MPV 10.5 H PT INR Sodium 130 L Potassium 3.1 L Chloride 103 Carbon Dioxide 14 L Anion Gap 13.0 H BUN 84 H Creatinine 5.08 H* Est Cr Clr Drug Dosing 22.1 Est GFR ( Amer) 13.5 Est GFR (Non-Af Amer) 11.7 BUN/Creatinine Ratio 16.7 Glucose 321 H* POC Glucose POC Glucose (other) 325 H Lactate Calcium 7.4 L Ionized Calcium Phosphorus 2.3 L Magnesium 2.4 Total Bilirubin 0.4 Direct Bilirubin 0.2 AST 16 ALT 11 L Alkaline Phosphatase 87 Total Protein 5.2 L Albumin 1.4 L Lipase Beta-Hydroxybutyric Acd 6.19 H Procalcitonin 11/29/19 11/29/19 11/29/19 04:42 04:42 04:42 WBC RBC Hgb Hct MCV MCH MCHC RDW Std Deviation RDW Coeff of Cristela Plt Count MPV PT 14.3 H INR 1.4 H Sodium Potassium Chloride Carbon Dioxide Anion Gap BUN Creatinine Est Cr Clr Drug Dosing Est GFR ( Amer) Est GFR (Non-Af Amer) BUN/Creatinine Ratio Glucose POC Glucose POC Glucose (other) Lactate Calcium Ionized Calcium 1.05 L Phosphorus Magnesium Total Bilirubin Direct Bilirubin AST ALT Alkaline Phosphatase Total Protein Albumin Lipase Beta-Hydroxybutyric Acd Procalcitonin 13.59 H 11/29/19 09:41 WBC RBC Hgb Hct MCV MCH MCHC RDW Std Deviation RDW Coeff of Cristela Plt Count MPV PT INR Sodium Potassium Chloride Carbon Dioxide Anion Gap BUN Creatinine Est Cr Clr Drug Dosing Est GFR ( Amer) Est GFR (Non-Af Amer) BUN/Creatinine Ratio Glucose POC Glucose POC Glucose (other) 287 H Lactate Calcium Ionized Calcium Phosphorus Magnesium Total Bilirubin Direct Bilirubin AST ALT Alkaline Phosphatase Total Protein Albumin Lipase Beta-Hydroxybutyric Acd Procalcitonin Medications Administered Current Inpatient Medications Acetaminophen (Tylenol) 650 mg PO Q4H PRN PRN Reason: Pain or Fever Stop: 12/26/19 16:14 Al Hydrox/Mg Hydrox/Simethicone (Maalox) 15 ml PO Q4H PRN PRN Reason: Dyspepsia Stop: 12/26/19 16:14 Atorvastatin Calcium (Lipitor) 80 mg PO Q[facility] [place] Stop: 12/27/19 08:59 Last Admin: 11/28/19 09:10 Dose: 80 mg Documented by: Dextrose (Dextrose 50%) 25 - 50 ml IV UD PRN; Protocol PRN Reason: Hypoglycemia Protocol Stop: 12/26/19 16:14 Fluconazole (Diflucan) 100 mg PO QAM YULI; Protocol Stop: 12/07/19 08:59 Last Admin: 11/29/19 08:18 Dose: 100 mg Documented by: Glucagon (Glucagen) 1 mg SQ UD PRN; Protocol PRN Reason: Hypoglycemia Protocol Stop: 12/26/19 16:14 Glucose (Dex4 Glucose) 4 - 8 tabs PO UD PRN; Protocol PRN Reason: Hypoglycemia Protocol Stop: 12/26/19 16:14 Glucose (Glucose 40%) 15 - 30 gm PO UD PRN; Protocol PRN Reason: Hypoglycemia Protocol Stop: 12/26/19 16:14 Hydromorphone HCl (Dilaudid) 0.5 mg IV Q6 PRN PRN Reason: Severe Pain Stop: 12/10/19 16:14 Last Admin: 11/27/19 08:37 Dose: 0.5 mg Documented by: Pantoprazole Sodium 40 mg/ (Syringe) 10 mls @ 5 mls/min IV BID YULI Stop: 12/26/19 20:59 Last Admin: 11/29/19 08:17 Dose: 5 mls/min Documented by: Norepinephrine Bitartrate 8 mg (/ Dextrose) 508 mls @ 46.863 mls/hr IV .[id number] YULI; Protocol Stop: 12/28/19 05:29 Last Titration: 11/29/19 07:22 Dose: 0.1 mcg/kg/min, 46.9 mls/hr Documented by: Piperacillin Sod/Tazobactam (Sod 3.375 gm/ Dextrose) 115 mls @ 28.75 mls/hr IV Q8H YULI; Protocol Stop: 12/12/19 11:59 Last Infusion: 11/29/19 08:21 Dose: Infused Documented by: Daptomycin 600 mg/ Syringe 12 mls @ 6 mls/min IV Q2D@2100 YULI; Protocol Stop: 01/09/20 20:59 Last Admin: 11/28/19 20:52 Dose: 6 mls/min Documented by: Sodium Bicarbonate 150 meq/Potassium Chloride 30 meq/Dextrose 1,165 mls @ 80 mls/hr IV .[id number] YULI Stop: 11/29/19 21:30 Last Admin: 11/29/19 08:17 Dose: 80 mls/hr Documented by: Insulin Human Regular 250 (units/ Sodium Chloride) 250 mls @ 0 mls/hr IV .Q0M YULI; Protocol Stop: 12/29/19 09:59 Insulin Aspart (Novolog Flexpen) 0 units SC ACHS YULI; Protocol Stop: 12/26/19 17:14 Last Admin: 11/29/19 08:19 Dose: 17 units Documented by: Insulin Glargine (Lantus Solostar Pen) 0 units SC BID YULI; Protocol Stop: 12/28/19 20:59 Last Admin: 11/29/19 08:21 Dose: 15 units Documented by: Insulin Human Regular (Novolin R Bolus From Bag) 4.5 units IV ONE ONE Stop: 11/29/19 10:01 Miscellaneous (Carbohydrates For Hypoglycemia) 15 - 30 gm PO UD PRN PRN Reason: Hypoglycemia Protocol Stop: 12/26/19 16:14 Miscellaneous Information (Consult) 1 ea N/A UD PRN PRN Reason: Consult Stop: 12/28/19 04:54 Miscellaneous Information (Consult Glycemic Management Pharmacy) 1 ea N/A UD PRN PRN Reason: Consult Stop: 12/28/19 10:07 Miscellaneous Information (Consult) 1 ea N/A UD PRN PRN Reason: Consult Stop: 12/28/19 10:07 Miscellaneous Information (Consult) 1 ea N/A UD PRN PRN Reason: Consult Stop: 12/28/19 18:00 Ondansetron HCl (Zofran) 4 mg IV Q4H PRN PRN Reason: Nausea Stop: 12/28/19 06:00 Last Admin: 11/28/19 19:46 Dose: 4 mg Documented by: Oxycodone HCl (Roxicodone Immediate Rel) 5 mg PO Q6H PRN PRN Reason: Moderate Pain Stop: 12/10/19 16:49 Last Admin: 11/27/19 20:47 Dose: 5 mg Documented by: Sucralfate (Carafate) 1 gm PO QID YULI Stop: 12/27/19 12:59 Last Admin: 11/29/19 08:18 Dose: 1 gm Documented by:
[2019-11-29] MEDS: INSULIN REGULAR 250 UNITS in SODIUM CHLORIDE 0.9% 247.5 ML IV SCH ×2 (10:19→10:56)
[2019-11-29 10:27] LABS: Appearance Urine Turbid (Clear); Blood Urine 3+ (Negative); Color Urine Dark Yellow; Epithelial Cell Urine Auto >30 /lpf (0-5); Glucose Urine UA Trace (Negative); Ketones Urine Trace (Negative); Leukocyte Esterase Urine 1+ (Negative); Nitrite Urine Negative (Negative); Protein Urine 2+ (Negative); Specific Gravity Urine 1.035 (1.000-1.030); Urobilinogen Urine Negative (Negative); WBC Urine Automated >30 /hpf (0-5)
[2019-11-29 11:05] LABS: Bilirubin Urine Negative (Negative); Ictotest Urine Negative (Negative)
[2019-11-29 11:09] LABS: Calcium Oxalate Crystals Urine Present (None Prsent)
[2019-11-29 11:10] LABS: Amorphous Sediment Urine Present (None Prsent); Bacteria Urine Automated 1+ (Negative); RBC Urine Automated >30 /hpf (0-4)
[2019-11-29 11:37] LABS: Protein Creatinine Ratio Urine 0.8 (0-0.2); Total Protein Urine Random 160.8 mg/dl (0-11.9)
--- NOTE | 2019-11-29 11:40 | Pharmacy Report ---
Pharmacy Glycemic Short Note 2 - Date of Service November 29, 2019 - Glycemic Short BSG Results (Last 24 hours): 11/28/19 11/28/19 11/28/19 11:28 14:51 16:35 Glucose 259 H POC Glucose 299 H 284 H POC Glucose (other) 11/28/19 11/28/19 11/29/19 20:35 21:48 00:16 Glucose 330 H* POC Glucose 295 H POC Glucose (other) 324 H 11/29/19 11/29/19 11/29/19 04:11 04:42 09:41 Glucose 321 H* POC Glucose POC Glucose (other) 325 H 287 H Outpatient Anti-diabetic Regimen: * Lantus 20 units SC HS * Metformin * Dulaglutide * Canagliflozin * A1c = 7.8 % on 11/27/19 The patient is currently receiving: * Basal insulin: Lantus 10-15 units SC BID * Bolus insulin * NovoLog per scale ACHS or Q6hrs while NPO * Goal Range: Low 120 mg/dL - High 160 mg/dL * Correction Factor: 15 mg/dL/unit * Nutritional / Prandial insulin per carb ratio of 1 unit per 5 grams CHO consumed * IVP insulin : 10 units IV x2 doses overnight Risk Factors for Insulin Resistance: * Infection: sepsis/MSSA bacteremia 2nd osteomyelitis * Pressors: norepinephrine * IVF: Na bicarb gtt w KCl 30 mEq/L mixed in D5W started 11/27 PM * Diet: T2DM to NPO ASSESSMENT: * 59 yo M with sepsis/MSSA bacteremia 2nd osteomyelitis complicated by splenic infarct with new onset chest pain yesterday evening with wide-complex tachyarrhythmia prompting chemical laboratory scientist evaluation * Pharmacy consulted for glycemic management 2nd BSG's >300 mg/dL x2 yesterday * BSG's initially <300 mg/dL yesterday, but climbed 2nd initiation of bicarb gtt mixed in dextrose - per Dr. Elder, nephrology wishes to keep in D5W at this time * Initiation of insulin drip indicated based on BSG's and D5W gtt - OK per Dr. Elder / ICU rounds, who also discussed with nephrology and who is closely monitoring/repleting potassium * Of note, potassium is still low at 3.1, but patient tolerated two 10 unit insulin boluses overnight, potassium was repleted this AM (40 mEq), potassium is also present at 30 mEq/L in currently running bicarb gtt, and patient is at risk for overcorrection of potassium given significant TITA. Next BMP scheduled for 1300. Discussed w Dr[address] Elder. * Difficult to determine if patient could have DKA - complicated acid/base picture at this time. Patient at risk for DKA given elevated BSG's, significant infection, and outpatient SGLT2 usage. Patient already on D5W infusion with KCl (bicarb gtt). Will exercise caution as it cannot be ruled out at this time and use higher goal range. OK per Dr. Elder. PLAN FOR INPATIENT GLYCEMIC CONTROL: * Continue to hold outpatient oral diabetes medications * Initiate insulin drip - 4.5 unit IVP then 4.5 units/hr and titrate per protocol to goal range 150-250 mg/dL. Anticipate staying on insulin drip until D5W containing bicarb infusion stopped. * Basal insulin * Continue, but at low dose to help eventual transition off of drip. Not likely to transition patient off drip unless bicarb/D5W infusion stopped. * Lantus 10-20 units tonight depending on insulin drip rate. See MAR for details. * Bolus insulin * CHO ratio: 6 g CHO/unit while on insulin drip. Do not use insulin drip calculator to determine CHO ratio 2nd concurrent Lantus admin. * Recommend monitoring potassium closely while on insulin drip and replete as indicated per nephrology/critical care
--- NOTE | 2019-11-29 12:07 | Critical Care Progress Note ---
Date of Service November 29, 2019 Assessment & Plan (1) Admitted to intensive care unit: Reason Critically Ill: 59-year-old male presenting with sepsis with septic shock with new onset chest pain and concerning wide-complex tachyarrhythmia requiring close hemodynamic monitoring and further intervention. PLAN: Neuro: NEURO -CAM ICU: Negative Resp: Adequate oxygen saturation on room air CV: Chest pain -Possibly contributed by duodenitis wide-complex tachycardia: -Possible pacer spike causing artifact not true ventricular tachycardia Fluids/Renal: Acute kidney injury -Reviewed nephrology notes -Cautious potassium replacement in the setting of insulin infusion and TITA -Bicarbonate drip for metabolic acidosis ID: Sepsis with septic shock -Requiring vasoactive medication -Via arterial line patient appears he needs atrial kick to maintain adequate perfusion pressure -Expanded coverage to daptomycin and Zosyn given probable osteomyelitis of the lower extremity. -Patient worsened after de-escalation of therapy MSSA bacteremia -Repeat blood culture showed no growth to date GI/Nutrition: -Known duodenitis -PPI twice daily x8 weeks per GI -Sucralfate -Empiric Diflucan for 14 days per GI -N.p.o. 11/28 in case EP would perform any intervention Heme: Splenic infarct -Question infectious origin versus thromboembolic disease DVT prophylaxis: Heparin 3 times daily -I also want heparin locks in the dialysis catheter Endocrine: ICU hyperglycemia protocol Poorly controlled diabetes type 2 -Random cortisol pending given persistent hypotension Vascular access: Temporary dialysis catheter with vascular access placed into left femoral vein on 11/29/2019 -Femoral vein chosen over internal jugular is to allow access for any need for EP -Left radial arterial line Code Status: Full Disposition: ICU (2) Chest pain: (3) Wide-complex tachycardia: (4) Sepsis: (5) Duodenitis: (6) Heart failure: (7) Cardiomyopathy: (8) Obesity: (9) Renal insufficiency: (10) Ulcer of left foot due to type 2 diabetes mellitus: (11) TITA (acute kidney injury): (12) Presence of biventricular implantable cardioverter-defibrillator (ICD): (13) Splenic infarct: Admission and Anticipated Discharge Date Admission Date: November 26, 2019 Subjective Pleasant, still experiencing chest pain that is worse after eating or drinking, feels improved from yesterday. Physical Exam Physical Exam: General: Alert. nontoxic. Skin: Warm, dry, Head: Atraumatic Ears, nose, mouth and throat: airway patent Cardiovascular: Normal peripheral perfusion Respiratory: no respiratory distress Gastrointestinal: Non distended Musculoskeletal: Left second toe was swollen, painted with iodine, no obvious lymphangitis or streaking up the leg. Results & Data Results & Data ([facility]) Vital Signs (Past 12 Hours) Vital Signs Temp Pulse Resp BP Pulse Ox 11/29/19 11:26 36.9 C 110 H 24 94 11/29/19 11:00 107 H 27 H 95 11/29/19 10:00 92 H 24 94 11/29/19 09:00 112 H 25 H 94 11/29/19 08:00 36.6 C 111 H 25 H 94 11/29/19 07:00 112 H 29 H 92/64 L 94 11/29/19 06:30 105 H 24 94 11/29/19 06:20 109 H 28 H 95 11/29/19 05:50 120 H 29 H 94 11/29/19 05:40 115 H 26 H 94 11/29/19 04:30 95 H 28 H 95 11/29/19 04:00 36.9 C 115 H 24 94 11/29/19 03:30 105 H 24 94 11/29/19 03:00 104 H 24 93 11/29/19 02:30 118 H 22 94 11/29/19 01:30 105 H 24 95 11/29/19 01:00 109 H 24 94 11/29/19 00:30 36.9 C 111 H 27 H 95 Coding Level of Care Code Critical Care 1st 30-74 mins Diagnoses Admitted to intensive care unit Z78.9 Chest pain R07.9 Wide-complex tachycardia I47.2 Sepsis A41.9 Duodenitis K29.80 Heart failure I50.9 Cardiomyopathy I42.9 Obesity E66.9 Renal insufficiency N28.9 Ulcer of left foot due to type 2 diabetes mellitus E11.621; L97.529 TITA (acute kidney injury) N17.9 Presence of biventricular implantable cardioverter-defibrillator (ICD) Z95.810 Splenic infarct D73.5 Time Spent (min) 55 Comment I have personally spent 55 minutes of critical care time in the direct management of this patient. This is a life/limb threatening event. This includes time spent evaluating patient, direct bedside care, chart review, placing orders, interpretation of diagnostic studies, discussion with consultants, patient, and/or family members regarding treatment decisions, as well as other required patient management activities. This time is exclusive of all separately billable procedures, and teaching time and separate from and in addition to any other critical care service time.
[2019-11-29] MEDS ORDERED: INSULIN PROTOCOL GOAL RANGE ONE (12:15)
[2019-11-29] MEDS: HEPARIN SOD 5,000 UNIT/0.5 ML VIAL SC SCH ×2 (12:53→20:19)
--- NOTE | 2019-11-29 13:10 | Procedure Note ---
Procedure Note Date of Service November 29, 2019 Procedure date: Noted above Procedure: Temporary hemodialysis catheter placement with central venous access Pre-procedure indication: Need for vasoactive medication administration Post-procedure Diagnosis: same as above Prior to Procedure: Informed Consent: The risks, benefits, indications, potential complications, and alternatives were explained to the patient and informed consent obtained. Attending Staff: Miah Elder DO Resident/APC: Not applicable Skin Prep: Chlorhexidine Anesthesia: 4 mL 1% lidocaine without epinephrine The identity of the patient was confirmed and a bedside time out was performed. Description of Procedure: After sterile prep and sterile drape utilizing st andard sterile technique the superficial skin of the left femoral area was anesthetized. The target vessel was identified and entered with an 18-gauge needle. Dark venous blood return was noted. A guidewire was inserted through the needle and into the vessel. The needle was withdrawn and a skin darya was made. A tissue dilator was advanced via Seldinger technique and removed. A triple lumen catheter was inserted via Seldinger technique and the guidewire removed. All ports robyn and flushed easily. A Biopatch was placed, and the catheter was secured via nylon suture. A sterile dressing was then applied. Complications: None Estimated blood loss: Trace Patient tolerated the procedure well. Procedure Date: Noted Above Procedure: Procedural Ultrasound Indication: Central venous access Attending: Miah Elder DO Resident/Physician Tooling Specialist: Not applicable Artery visualized: Yes Vein visualized: Yes Compressible Vein: Yes Vein patent: Yes Guidewire or Short Catheter seen in vein prior to dilation: Yes Line confirmed in Vein with ultrasound: Yes Lung Sliding on side of attempt (if applicable): NA If no lung sliding or not obtained has CXR been ordered: Yes Impression: Successful central venous access placement Images obtained are saved for permanent record Coding CPT Codes Tubes, Drains, and Vasc Access - Tubes, Drains, and Vasc Access: [id number] Insertion Of Non-tunneled Catheter Age 7 Yrs> ([id number]) Tubes, Drains, and Vasc Access - Tubes, Drains, and Vasc Access: [id number] Ultrasound Guidance For Vascular ([id number]) [facility] [place]odes (Charges) Tubes, Drains, and Vasc Access Procedure 1: Tubes, Drains, and Vasc Access: [id number] Insertion Of Non-tunneled Catheter Age 7 Yrs> Procedure 2: Tubes, Drains, and Vasc Access: [id number] Ultrasound Guidance For Vascular
[2019-11-29 13:34] LABS: BUN Creatinine Ratio 16.8 (10-20); Calcium 7.6 mg/dl (8.5-10.1); Creatinine Clr Calc Pharmacy 20.8 ml/min; Est GFR (African American) 12.6; Est GFR (Non-African American) 10.9; Potassium 3.5 mmol/L (3.5-5.1)
--- NOTE | 2019-11-29 16:25 | Electrocardiogram Report ---
Test Reason : Blood Pressure : / mmHG Vent. Rate : 102 BPM Atrial Rate : 050 BPM P-R Int : 000 ms QRS Dur : 152 ms QT Int : 342 ms P-R-T Axes : 000 006 178 degrees QTc Int : 445 ms Ventricular-paced rhythm Abnormal ECG When compared with ECG of 28-NOV-2019 07:45, Vent. rate has decreased BY 9 BPM Confirmed by Evan Cohen ([id number]) on 11/29/2019 4:25:40 PM Referred By: REFERRED SELF Confirmed By:Xu Cohen
[2019-11-29] MEDS: PIPERACILLIN/TAZOBACTAM 4.5 GM in DEXTROSE 5% 100 ML IV SCH (16:43)
[2019-11-29] MEDS: HYDROmorphone INJ 0.5 MG/0.5 ML SYR IV PRN (16:43)
[2019-11-29] MEDS: ONDANSETRON INJ 2 MG/ML 2 ML VIAL IV PRN (16:43)
--- NOTE | 2019-11-29 16:47 | Hospitalist Progress Note ---
Date of Service November 29, 2019 Assessment & Plan (1) Septic shock: secondary to MSSA bacteremia, Left toe culprit nonhealing wound due to DM type 2, with osteomyelitis Patient is a 59-year-old male with history of nonischemic cardiomyopathy, status post AICD pacemaker placement, diabetes type 2, hypertension, presented with nausea vomiting abdominal pain. --Remains on Levophed, IV fluids Afebrile Leukocytosis improving -- repeat blood cultures: Negative so far -- continue Dapto + Zoysn IV -- Wound Care Consulted-does not need I&D at this point, may need orthopedic evaluation for possible surgical intervention when stable (2) Splenic infarct: Likely secondary to above (3) TITA (acute kidney injury): Likely Secondary to Vancomycin, Septic Shock Renal ultrasound did not show any renal artery obstruction and good flow in the veins Vancomycin discontinued management of Sepsis as per above Climatologist consulted --Bicarb drip added Monitor closely, may require hemodialysis, central line inserted today (4) Duodenitis: Noted in CAT scan s/p EGD Likely the cause for nausea and vomiting-will give symptomatic management continue p.o. Protonix and sulfate (5) Nausea and vomiting: secondary to above Resolved (6) NICM (nonischemic cardiomyopathy): (7) CHF (congestive heart failure): Chronic Systolic Congestive heart failure and s/p ICD placement in July 2019. Echo completed last week as an outpatient. Seems unlikely to be source of infarcts. Wi EKG completed in ED no new changes. No evidence of ACS and no evidence of acute CHF -- euvolemic Pacemaker interrogation: Pending (8) DM (diabetes mellitus): On insulin drip a1c 7.8 (9) HTN (hypertension): hold Sacubitril- Valsartan in light of hypotension (10) DVT prophylaxis: SCDs heparin twice daily Disposition: Pending Attempted to call patient's sister Miryam over the phone for update, no answer, left a voicemail requesting call back Admission and Anticipated Discharge Date Admission Date: November 26, 2019 Subjective Follow-up for staph bacteremia, left foot ulcer, acute renal failure, etc. Resting in bed, comfortable, appears tired Patient reports he still has epigastric pain worse with p.o. intake Also has poor appetite Denies shortness of breath, chest pain, dizziness, palpitations No foot pain Denies other symptoms Review of Systems Review of Systems: All systems reviewed & are unremarkable except as noted in HPI & below Physical Exam Physical Exam: General- oriented x 3, not in distress, speaks in sentences with no effort or accessory muscle use Appears weak Eyes- anicteric Neck- no JVD Lungs- clear breath sounds bilaterally, no rales/wheezes Heart- normal rate, regular rhythm; no murmurs Abdomen- normal bowel sounds, nondistended, soft, mild epigastric tenderness Extremities- no pretibial edema, no calf tenderness Positive wound with surrounding edema on the second toe left foot, no discharge Neuro- alert, oriented x 3; no gross focal neurologic deficits Skin- warm & dry Results & Data Results & Data ([facility]) Vital Signs (Past 12 Hours) Vital Signs Temp Pulse Resp BP Pulse Ox 11/29/19 15:00 102 H 24 94 11/29/19 14:00 104 H 24 95 11/29/19 13:00 116 H 25 H 96 11/29/19 12:00 110 H 24 94 11/29/19 11:26 36.9 C 110 H 24 94 11/29/19 11:00 107 H 27 H 95 11/29/19 10:00 92 H 24 94 11/29/19 09:00 112 H 25 H 94 11/29/19 08:00 36.6 C 111 H 25 H 94 11/29/19 07:00 112 H 29 H 92/64 L 94 11/29/19 06:30 105 H 24 94 11/29/19 06:20 109 H 28 H 95 11/29/19 05:50 120 H 29 H 94 11/29/19 05:40 115 H 26 H 94 Laboratory Results Laboratory Results - last 24 hr 11/28/19 11/28/19 11/28/19 20:35 21:48 21:48 WBC RBC Hgb Hct MCV MCH MCHC RDW Std Deviation RDW Coeff of Cristela Plt Count MPV PT INR Sodium 129 L Potassium Chloride 101 Carbon Dioxide 12 L Anion Gap 17.0 H BUN 84 H Creatinine 4.84 H* D Est Cr Clr Drug Dosing 22.8 Est GFR ( Amer) 14.3 Est GFR (Non-Af Amer) 12.4 BUN/Creatinine Ratio 17.3 Glucose 330 H* POC Glucose 295 H POC Glucose (other) Calcium 7.3 L D Ionized Calcium 1.00 L Phosphorus Magnesium Total Bilirubin Direct Bilirubin AST ALT Alkaline Phosphatase Total Protein Albumin Beta-Hydroxybutyric Acd Procalcitonin Random Cortisol Urine Color Urine Appearance Urine pH Ur Specific Slick Urine Protein Urine Glucose (UA) Urine Ketones Urine Blood Urine Nitrite Urine Bilirubin Urine Urobilinogen Ur Leukocyte Esterase Urine WBC (Auto) Urine RBC (Auto) U Hyaline Cast (Auto) U Epithel Cells (Auto) Urine Bacteria (Auto) Calcium Oxalate Crystal Amorphous Sediment Urine Yeast Ur Random Creatinine U Random Total Protein Protein/Creatinin Ratio 11/28/19 11/29/19 11/29/19 22:47 00:16 04:11 WBC RBC Hgb Hct MCV MCH MCHC RDW Std Deviation RDW Coeff of Cristela Plt Count MPV PT INR Sodium Potassium 3.6 Chloride Carbon Dioxide Anion Gap BUN Creatinine Est Cr Clr Drug Dosing Est GFR ( Amer) Est GFR (Non-Af Amer) BUN/Creatinine Ratio Glucose POC Glucose POC Glucose (other) 324 H 325 H Calcium Ionized Calcium Phosphorus Magnesium Total Bilirubin Direct Bilirubin AST ALT Alkaline Phosphatase Total Protein Albumin Beta-Hydroxybutyric Acd 10.37 H Procalcitonin Random Cortisol Urine Color Urine Appearance Urine pH Ur Specific Slick Urine Protein Urine Glucose (UA) Urine Ketones Urine Blood Urine Nitrite Urine Bilirubin Urine Urobilinogen Ur Leukocyte Esterase Urine WBC (Auto) Urine RBC (Auto) U Hyaline Cast (Auto) U Epithel Cells (Auto) Urine Bacteria (Auto) Calcium Oxalate Crystal Amorphous Sediment Urine Yeast Ur Random Creatinine U Random Total Protein Protein/Creatinin Ratio 11/29/19 11/29/19 11/29/19 04:42 04:42 04:42 WBC 15.90 H RBC 3.99 L Hgb 11.0 L Hct 32.6 L MCV 81.7 MCH 27.6 MCHC 33.7 RDW Std Deviation 46.1 RDW Coeff of Cristela 15.4 H Plt Count 150 MPV 10.5 H PT INR Sodium 130 L Potassium 3.1 L Chloride 103 Carbon Dioxide 14 L Anion Gap 13.0 H BUN 84 H Creatinine 5.08 H* Est Cr Clr Drug Dosing 22.1 Est GFR ( Amer) 13.5 Est GFR (Non-Af Amer) 11.7 BUN/Creatinine Ratio 16.7 Glucose 321 H* POC Glucose POC Glucose (other) Calcium 7.4 L Ionized Calcium 1.05 L Phosphorus 2.3 L Magnesium 2.4 Total Bilirubin 0.4 Direct Bilirubin 0.2 AST 16 ALT 11 L Alkaline Phosphatase 87 Total Protein 5.2 L Albumin 1.4 L Beta-Hydroxybutyric Acd 6.19 H Procalcitonin Random Cortisol Urine Color Urine Appearance Urine pH Ur Specific Slick Urine Protein Urine Glucose (UA) Urine Ketones Urine Blood Urine Nitrite Urine Bilirubin Urine Urobilinogen Ur Leukocyte Esterase Urine WBC (Auto) Urine RBC (Auto) U Hyaline Cast (Auto) U Epithel Cells (Auto) Urine Bacteria (Auto) Calcium Oxalate Crystal Amorphous Sediment Urine Yeast Ur Random Creatinine U Random Total Protein Protein/Creatinin Ratio 11/29/19 11/29/19 11/29/19 04:42 04:42 09:41 WBC RBC Hgb Hct MCV MCH MCHC RDW Std Deviation RDW Coeff of Cristela Plt Count MPV PT 14.3 H INR 1.4 H Sodium Potassium Chloride Carbon Dioxide Anion Gap BUN Creatinine Est Cr Clr Drug Dosing Est GFR ( Amer) Est GFR (Non-Af Amer) BUN/Creatinine Ratio Glucose POC Glucose POC Glucose (other) 287 H Calcium Ionized Calcium Phosphorus Magnesium Total Bilirubin Direct Bilirubin AST ALT Alkaline Phosphatase Total Protein Albumin Beta-Hydroxybutyric Acd Procalcitonin 13.59 H Random Cortisol Urine Color Urine Appearance Urine pH Ur Specific Slick Urine Protein Urine Glucose (UA) Urine Ketones Urine Blood Urine Nitrite Urine Bilirubin Urine Urobilinogen Ur Leukocyte Esterase Urine WBC (Auto) Urine RBC (Auto) U Hyaline Cast (Auto) U Epithel Cells (Auto) Urine Bacteria (Auto) Calcium Oxalate Crystal Amorphous Sediment Urine Yeast Ur Random Creatinine U Random Total Protein Protein/Creatinin Ratio 11/29/19 11/29/19 11/29/19 10:05 10:05 11:27 WBC RBC Hgb Hct MCV MCH MCHC RDW Std Deviation RDW Coeff of Cristela Plt Count MPV PT INR Sodium Potassium Chloride Carbon Dioxide Anion Gap BUN Creatinine Est Cr Clr Drug Dosing Est GFR ( Amer) Est GFR (Non-Af Amer) BUN/Creatinine Ratio Glucose POC Glucose POC Glucose (other) 259 H Calcium Ionized Calcium Phosphorus Magnesium Total Bilirubin Direct Bilirubin AST ALT Alkaline Phosphatase Total Protein Albumin Beta-Hydroxybutyric Acd Procalcitonin Random Cortisol Urine Color Dark Yellow Urine Appearance Turbid A Urine pH 5.0 Ur Specific Slick 1.035 H Urine Protein 2+ H Urine Glucose (UA) Trace H Urine Ketones Trace H Urine Blood 3+ H Urine Nitrite Negative Urine Bilirubin Negative Urine Urobilinogen Negative Ur Leukocyte Esterase 1+ H Urine WBC (Auto) >30 H Urine RBC (Auto) >30 H U Hyaline Cast (Auto) 1-5 U Epithel Cells (Auto) >30 H Urine Bacteria (Auto) 1+ H Calcium Oxalate Crystal Present A Amorphous Sediment Present A Urine Yeast Not Reportable Ur Random Creatinine 192.0 U Random Total Protein 160.8 H Protein/Creatinin Ratio 0.8 H 11/29/19 11/29/19 11/29/19 12:42 12:51 12:51 WBC RBC Hgb Hct MCV MCH MCHC RDW Std Deviation RDW Coeff of Cristela Plt Count MPV PT INR Sodium 132 L Potassium 3.5 Chloride 103 Carbon Dioxide 15 L Anion Gap 14.0 H BUN 91 H Creatinine 5.38 H* D Est Cr Clr Drug Dosing 20.8 Est GFR ( Amer) 12.6 Est GFR (Non-Af Amer) 10.9 BUN/Creatinine Ratio 16.8 Glucose 249 H POC Glucose POC Glucose (other) 237 H Calcium 7.6 L Ionized Calcium 1.05 L Phosphorus Magnesium Total Bilirubin Direct Bilirubin AST ALT Alkaline Phosphatase Total Protein Albumin Beta-Hydroxybutyric Acd Procalcitonin Random Cortisol Urine Color Urine Appearance Urine pH Ur Specific Slick Urine Protein Urine Glucose (UA) Urine Ketones Urine Blood Urine Nitrite Urine Bilirubin Urine Urobilinogen Ur Leukocyte Esterase Urine WBC (Auto) Urine RBC (Auto) U Hyaline Cast (Auto) U Epithel Cells (Auto) Urine Bacteria (Auto) Calcium Oxalate Crystal Amorphous Sediment Urine Yeast Ur Random Creatinine U Random Total Protein Protein/Creatinin Ratio 11/29/19 11/29/19 11/29/19 13:16 13:21 14:35 WBC RBC Hgb Hct MCV MCH MCHC RDW Std Deviation RDW Coeff of Cristela Plt Count MPV PT INR Sodium Potassium Chloride Carbon Dioxide Anion Gap BUN Creatinine Est Cr Clr Drug Dosing Est GFR ( Amer) Est GFR (Non-Af Amer) BUN/Creatinine Ratio Glucose POC Glucose POC Glucose (other) 227 H 214 H Calcium Ionized Calcium Phosphorus Magnesium Total Bilirubin Direct Bilirubin AST ALT Alkaline Phosphatase Total Protein Albumin Beta-Hydroxybutyric Acd Procalcitonin Random Cortisol 32.02 Urine Color Urine Appearance Urine pH Ur Specific Slick Urine Protein Urine Glucose (UA) Urine Ketones Urine Blood Urine Nitrite Urine Bilirubin Urine Urobilinogen Ur Leukocyte Esterase Urine WBC (Auto) Urine RBC (Auto) U Hyaline Cast (Auto) U Epithel Cells (Auto) Urine Bacteria (Auto) Calcium Oxalate Crystal Amorphous Sediment Urine Yeast Ur Random Creatinine U Random Total Protein Protein/Creatinin Ratio (1) Nausea and vomiting Vomiting Intractability: unspecified Vomiting type: unspecified Qualified Code(s): R11.2 - Nausea with vomiting, unspecified
--- NOTE | 2019-11-29 17:10 | Nephrology Progress Note ---
Date of Service November 29, 2019 Assessment & Plan (1) TITA (acute kidney injury): nonoliguric TITA w/ baseline creatinine 1.2 as of July 2019; suspect prerenal components but higher risk for ATN . likely multifactorial >> he has septic shock and MSSA bacteremia w/ splenic infarcts from diabetic foot ulcer; he was already in renal failure on arrival and has now had 2 IV contrast dye loads for CT scan on admission and L heart cath November 27; he had poor po intake for several days prior to and after presentation and was on medications that can worsen renal failure (sacubitril/valsartan, canagliflozin particularly). Even before septic shock developed his urine was exceptionally concentrated showing dehydration; repeat urinalysis remarkable for ongoing significantly concentrated urine,ketonuria, ongoing microhematuria and proteinuria, quantified at 800 mg daily on spot ratio. He had saline for several hours after cardiac cath 11/27 per protocol; he has been getting IV fluids steadily nearly 24 hours now as well. >> Remains on room air and does not examine as volume overloaded; however no function as expected continues to worsen and he is now oliguric; electrolyte abnormalities persist but are generally improving with resuscitation and repletion: No indication for dialysis today. He is quite likely to need it next 24 to 48 hours however -Continue to hold Entresto -asked pharmacy to dose adjust fluconazole for his degree of renal dysfunction -IV fluid cautiously as below to continue -repeat UACM tomorrow if improvement in renal function noted today stalls (2) MSSA bacteremia: now on daptomycin and Zosyn; 4/4 bottles on 11/25 +; TTE w/o vegetation or new WMA; suspect splenic infarcts are septic emboli -f/u repeat cultures: No growth to date -defer to primary service to eval source > favor infected toe; no recent dental infections/procedures; also has screws in L shoulder after rotator cuff repair and ICD wires (3) Septic shock: continue pressor support and IV fluids as below (4) Electrolyte and fluid disorder: hypokalemia, borderline but basically improved hypocalcemia, improving bicarbonate on bicarbonate drip w/ normal lactate. mag ok -Continue bicarb gtt w/ 30 mEq/L K at 80 mL/hr and reassess fluid composition frequently -check bmp and ionized calcium q8hrs and adjust fluids as indicated > next set ordered for 2200 -critical care aware and will address blood sugars (insulin gtt) Admission and Anticipated Discharge Date Admission Date: November 26, 2019 Subjective Seen on rounds this afternoon at 3 PM. Drowsy for most of the day but wakens fully. Levophed dose coming down 0.08 currently. Sharp crampy abdominal pain with oral intake. Unremitting nausea. No chest pain; no shortness of breath; no palpitations; no edema; marked fatigue and generalized weakness. Patient needed central access: Central line with in belt dialysis catheter placed left groin. I reviewed the chart and have been following his care through the day Review of Systems Review of Systems: All systems reviewed & are unremarkable except as noted in HPI & below Physical Exam Constitutional: well developed, well nourished and + obese; no acute distress Eyes: EOM intact bilaterally ENMT: Ears: no external ear abnormality Nose: no external nose abnormality Mouth: + dry oral mucous membranes Neck: no nuchal rigidity Respiratory: normal respiratory effort, + labored breathing (mild) and + tachypneic; no respiratory distress and no cough Auscultation: lungs clear to auscultation bilaterally and + diminished lung sounds Cardiovascular: Rate/Rhythm: regular rhythm and + tachycardic Extremities: no edema Gastrointestinal (Abdomen): Inspection/Auscultation: + abdomen distended and normal bowel sounds (Or slightly diminished) Percussion/Palpation: + abdomen tender (More diffuse today but less tender), + guarding and abdomen soft Musculoskeletal: no cyanosis or clubbing, extremities motor strength 5/5 Skin: no rashes, warm and dry Psychiatric: A+Ox3, euthymic affect Genitourinary: Bauer with light clear yellow urine Results & Data ([facility]) Vital Signs (Past 12 Hours) Vital Signs Temp Pulse Resp BP Pulse Ox 11/29/19 15:00 102 H 24 11/29/19 14:00 104 H 24 95 11/29/19 13:00 116 H 25 H 96 11/29/19 12:00 110 H 24 94 11/29/19 11:26 36.9 C 110 H 24 94 11/29/19 11:00 107 H 27 H 95 11/29/19 10:00 92 H 24 94 11/29/19 09:00 112 H 25 H 94 11/29/19 08:00 36.6 C 111 H 25 H 94 11/29/19 07:00 112 H 29 H 92/64 L 94 11/29/19 06:30 105 H 24 94 11/29/19 06:20 109 H 28 H 95 11/29/19 05:50 120 H 29 H 94 11/29/19 05:40 115 H 26 H 94 Laboratory Results 11/29/19 04:42 11/29/19 12:51
[2019-11-29] MEDS: PANTOprazole 40 MG TAB PO SCH (20:22)
[2019-11-29 21:40] LABS: BUN Creatinine Ratio 16.7 (10-20); Calcium 7.3 mg/dl (8.5-10.1); Creatinine Clr Calc Pharmacy 21.3 ml/min; Est GFR (Non-African American) 11.2; Potassium 3.2 mmol/L (3.5-5.1)
[2019-11-30] MEDS: PIPERACILLIN/TAZOBACTAM 4.5 GM in DEXTROSE 5% 100 ML IV SCH (04:06)
[2019-11-30 04:27] LABS: Hematocrit (blood only) 28.7 % (42-52); Mean Corpuscular Hemoglobin 28.2 pg (25-34); Mean Corpuscular Hgb Conc 34.8 g/dL (32-36); Mean Corpuscular Volume 80.8 fL (80-100); Mean Platelet Volume 9.7 fL (7.4-10.4); Platelet Count 160 K/uL (130-400); RDW Coefficient of Variation 15.4 % (11.5-14.5); RDW Standard Deviation 46.6 fL (36.4-46.3); Red Blood Count 3.55 M/uL (4.7-6.1); White Blood Count 14.31 K/uL (4.8-10.8)
[2019-11-30 04:53] LABS: BUN Creatinine Ratio 15.9 (10-20); Calcium 7.3 mg/dl (8.5-10.1); Creatinine Clr Calc Pharmacy 21.6 ml/min; Est GFR (African American) 13.2; Est GFR (Non-African American) 11.4; Potassium 3.4 mmol/L (3.5-5.1)
[2019-11-30] MEDS ORDERED: POTASSIUM CHLORIDE 20 MEQ TABCR PO STA (05:38)
[2019-11-30] MEDS ORDERED: CALCIUM GLUCONATE 10% 1,000 MG in SODIUM CHLORIDE 0.9% 50 ML IV STA (06:00)
[2019-11-30] MEDS: INSULIN ASPART 100 UNITS/ML 3 ML PEN SC SCH ×4 (07:39→20:22)
[2019-11-30] MEDS: FLUCONAZOLE 100 MG TAB PO SCH (07:46)
[2019-11-30] MEDS: SUCRALFATE 1 GM/10 ML UDC PO SCH ×4 (07:46→20:23)
[2019-11-30] MEDS: PANTOprazole 40 MG TAB PO SCH ×2 (07:46→20:24)
[2019-11-30] MEDS: HEPARIN SOD 5,000 UNIT/0.5 ML VIAL SC SCH ×3 (07:47→20:23)
--- NOTE | 2019-11-30 08:50 | Cardiology Progress Note ---
Date of Service November 30, 2019 Assessment & Plan (1) Duodenitis: (2) Cardiomyopathy: (3) Biventricular automatic implantable cardioverter defibrillator in situ: (4) Sepsis associated hypotension: (5) TITA (acute kidney injury): (6) NICM (nonischemic cardiomyopathy): The patient is hemodynamically stable. He still remains on a low-dose of norepinephrine. Unfortunately his creatinine is now 5.38. Nephrology is following and he may require dialysis. The patient's pacemaker was interrogated and I will try to find the report. His EKG shows a ventricular paced rhythm, uncertain as to his atrial status. Subjective The patient is alert and oriented. He voices no complaints today. Review of Systems Review of Systems: All systems reviewed & are unremarkable except as noted in HPI & below Nothing additional to add. Physical Exam Physical Exam: General: no acute distress and stated age Head: normocephalic, no masses, lesions, tenderness or abnormalities Eyes: conjunctiva are pink and non-injected, sclera clear Neck: supple, no adenopathy, no bruits, normal jugular venous pulse, no hepatojugular reflux Chest: normal shape and normal respiratory effort Lungs: clear to auscultation and percussion Cardiac Exam: - regular rate & rhythm, no murmurs gallops or rubs - normal S1, normal S2 Pulses: 2(+) throughout Abdomen: abdomen soft, non-tender, no abnormal masses and no hepatosplenomegaly Musculoskeletal: no gait disturbance, no joint inflammation, no deforming arthritis Extremities: no edema and no cyanosis Neuro: grossly normal exam Results & Data Vital Signs (Past 12 Hours) Vital Signs Temp Pulse Resp Pulse Ox 11/30/19 08:00 110 H 11/30/19 06:45 37.0 C 110 H 21 95 11/30/19 06:30 113 H 24 94 11/30/19 06:15 104 H 26 H 93 11/30/19 06:00 113 H 20 92 11/30/19 05:30 107 H 19 93 11/30/19 05:15 108 H 26 H 94 11/30/19 05:00 106 H 28 H 93 11/30/19 04:45 104 H 25 H 94 11/30/19 04:30 116 H 25 H 92 11/30/19 04:15 114 H 22 92 05/22/20 03:30 103 H 26 H 91 05/22/20 03:15 112 H 23 93 11/30/19 03:00 110 H 24 93 11/30/19 02:45 106 H 27 H 93 11/30/19 02:30 109 H 25 H 93 11/30/19 02:15 116 H 31 H 94 11/30/19 02:00 112 H 26 H 93 11/30/19 01:45 107 H 26 H 94 11/30/19 01:30 108 H 27 H 94 11/30/19 01:00 101 H 25 H 94 11/30/19 00:30 109 H 28 H 95 11/30/19 00:15 112 H 27 H 96 11/30/19 00:00 103 H 32 H 96 11/29/19 23:45 109 H 27 H 98 11/29/19 23:30 111 H 29 H 97 11/29/19 23:24 104 H 11/29/19 23:15 108 H 26 H 97 11/29/19 23:00 37 C 110 H 24 98 11/29/19 22:45 108 H 25 H 100 11/29/19 22:30 111 H 26 H 97 11/29/19 22:15 110 H 21 100 11/29/19 21:45 105 H 25 H 95 11/29/19 21:00 113 H 25 H 96 Laboratory Results Laboratory Results - last 24 hr 11/29/19 11/29/19 11/29/19 09:41 10:05 10:05 WBC RBC Hgb Hct MCV MCH MCHC RDW Std Deviation RDW Coeff of Cristela Plt Count MPV Sodium Potassium Chloride Carbon Dioxide Anion Gap BUN Creatinine Est Cr Clr Drug Dosing Est GFR ( Amer) Est GFR (Non-Af Amer) BUN/Creatinine Ratio Glucose POC Glucose (other) 287 H Calcium Ionized Calcium Random Cortisol Urine Color Dark Yellow Urine Appearance Turbid A Urine pH 5.0 Ur Specific Lamont 1.035 H Urine Protein 2+ H Urine Glucose (UA) Trace H Urine Ketones Trace H Urine Blood 3+ H Urine Nitrite Negative Urine Bilirubin Negative Urine Urobilinogen Negative Ur Leukocyte Esterase 1+ H Urine WBC (Auto) >30 H Urine RBC (Auto) >30 H U Hyaline Cast (Auto) 1-5 U Epithel Cells (Auto) >30 H Urine Bacteria (Auto) 1+ H Calcium Oxalate Crystal Present A Amorphous Sediment Present A Urine Yeast Not Reportable Ur Random Creatinine 192.0 U Random Total Protein 160.8 H Protein/Creatinin Ratio 0.8 H 11/29/19 11/29/19 11/29/19 11:27 12:42 12:51 WBC RBC Hgb Hct MCV MCH MCHC RDW Std Deviation RDW Coeff of Cristela Plt Count MPV Sodium 132 L Potassium 3.5 Chloride 103 Carbon Dioxide 15 L Anion Gap 14.0 H BUN 91 H Creatinine 5.38 H* D Est Cr Clr Drug Dosing 20.8 Est GFR ( Amer) 12.6 Est GFR (Non-Af Amer) 10.9 BUN/Creatinine Ratio 16.8 Glucose 249 H POC Glucose (other) 259 H 237 H Calcium 7.6 L Ionized Calcium Random Cortisol Urine Color Urine Appearance Urine pH Ur Specific Lamont Urine Protein Urine Glucose (UA) Urine Ketones Urine Blood Urine Nitrite Urine Bilirubin Urine Urobilinogen Ur Leukocyte Esterase Urine WBC (Auto) Urine RBC (Auto) U Hyaline Cast (Auto) U Epithel Cells (Auto) Urine Bacteria (Auto) Calcium Oxalate Crystal Amorphous Sediment Urine Yeast Ur Random Creatinine U Random Total Protein Protein/Creatinin Ratio 11/29/19 11/29/19 11/29/19 12:51 13:16 13:21 WBC RBC Hgb Hct MCV MCH MCHC RDW Std Deviation RDW Coeff of Cristela Plt Count MPV Sodium Potassium Chloride Carbon Dioxide Anion Gap BUN Creatinine Est Cr Clr Drug Dosing Est GFR ( Amer) Est GFR (Non-Af Amer) BUN/Creatinine Ratio Glucose POC Glucose (other) 227 H Calcium Ionized Calcium 1.05 L Random Cortisol 32.02 Urine Color Urine Appearance Urine pH Ur Specific Lamont Urine Protein Urine Glucose (UA) Urine Ketones Urine Blood Urine Nitrite Urine Bilirubin Urine Urobilinogen Ur Leukocyte Esterase Urine WBC (Auto) Urine RBC (Auto) U Hyaline Cast (Auto) U Epithel Cells (Auto) Urine Bacteria (Auto) Calcium Oxalate Crystal Amorphous Sediment Urine Yeast Ur Random Creatinine U Random Total Protein Protein/Creatinin Ratio 11/29/19 11/29/19 11/29/19 14:35 16:19 17:48 WBC RBC Hgb Hct MCV MCH MCHC RDW Std Deviation RDW Coeff of Cristela Plt Count MPV Sodium Potassium Chloride Carbon Dioxide Anion Gap BUN Creatinine Est Cr Clr Drug Dosing Est GFR ( Amer) Est GFR (Non-Af Amer) BUN/Creatinine Ratio Glucose POC Glucose (other) 214 H 207 H 202 H Calcium Ionized Calcium Random Cortisol Urine Color Urine Appearance Urine pH Ur Specific Lamont Urine Protein Urine Glucose (UA) Urine Ketones Urine Blood Urine Nitrite Urine Bilirubin Urine Urobilinogen Ur Leukocyte Esterase Urine WBC (Auto) Urine RBC (Auto) U Hyaline Cast (Auto) U Epithel Cells (Auto) Urine Bacteria (Auto) Calcium Oxalate Crystal Amorphous Sediment Urine Yeast Ur Random Creatinine U Random Total Protein Protein/Creatinin Ratio 11/29/19 11/29/19 11/29/19 20:07 21:05 22:06 WBC RBC Hgb Hct MCV MCH MCHC RDW Std Deviation RDW Coeff of Cristela Plt Count MPV Sodium 133 L Potassium 3.2 L Chloride 103 Carbon Dioxide 16 L Anion Gap 14.0 H BUN 88 H Creatinine 5.26 H* Est Cr Clr Drug Dosing 21.3 Est GFR ( Amer) 13.0 Est GFR (Non-Af Amer) 11.2 BUN/Creatinine Ratio 16.7 Glucose 203 H POC Glucose (other) 196 H 180 H Calcium 7.3 L Ionized Calcium Random Cortisol Urine Color Urine Appearance Urine pH Ur Specific Lamont Urine Protein Urine Glucose (UA) Urine Ketones Urine Blood Urine Nitrite Urine Bilirubin Urine Urobilinogen Ur Leukocyte Esterase Urine WBC (Auto) Urine RBC (Auto) U Hyaline Cast (Auto) U Epithel Cells (Auto) Urine Bacteria (Auto) Calcium Oxalate Crystal Amorphous Sediment Urine Yeast Ur Random Creatinine U Random Total Protein Protein/Creatinin Ratio 11/30/19 11/30/19 11/30/19 00:09 02:07 03:06 WBC RBC Hgb Hct MCV MCH MCHC RDW Std Deviation RDW Coeff of Cristela Plt Count MPV Sodium Potassium Chloride Carbon Dioxide Anion Gap BUN Creatinine Est Cr Clr Drug Dosing Est GFR ( Amer) Est GFR (Non-Af Amer) BUN/Creatinine Ratio Glucose POC Glucose (other) 161 H 134 H 124 H Calcium Ionized Calcium Random Cortisol Urine Color Urine Appearance Urine pH Ur Specific Lamont Urine Protein Urine Glucose (UA) Urine Ketones Urine Blood Urine Nitrite Urine Bilirubin Urine Urobilinogen Ur Leukocyte Esterase Urine WBC (Auto) Urine RBC (Auto) U Hyaline Cast (Auto) U Epithel Cells (Auto) Urine Bacteria (Auto) Calcium Oxalate Crystal Amorphous Sediment Urine Yeast Ur Random Creatinine U Random Total Protein Protein/Creatinin Ratio 05/11/30/19 11/30/19 04:08 04:13 04:13 WBC 14.31 H RBC 3.55 L Hgb 10.0 L Hct 28.7 L MCV 80.8 MCH 28.2 MCHC 34.8 RDW Std Deviation 46.6 H RDW Coeff of Cristela 15.4 H Plt Count 160 MPV 9.7 Sodium 135 L Potassium 3.4 L Chloride 105 Carbon Dioxide 19 L Anion Gap 11.0 BUN 83 H Creatinine 5.18 H* Est Cr Clr Drug Dosing 21.6 Est GFR ( Amer) 13.2 Est GFR (Non-Af Amer) 11.4 BUN/Creatinine Ratio 15.9 Glucose 131 H POC Glucose (other) 125 H Calcium 7.3 L Ionized Calcium Random Cortisol Urine Color Urine Appearance Urine pH Ur Specific Lamont Urine Protein Urine Glucose (UA) Urine Ketones Urine Blood Urine Nitrite Urine Bilirubin Urine Urobilinogen Ur Leukocyte Esterase Urine WBC (Auto) Urine RBC (Auto) U Hyaline Cast (Auto) U Epithel Cells (Auto) Urine Bacteria (Auto) Calcium Oxalate Crystal Amorphous Sediment Urine Yeast Ur Random Creatinine U Random Total Protein Protein/Creatinin Ratio 11/30/19 11/30/19 11/30/19 04:13 05:07 06:09 WBC RBC Hgb Hct MCV MCH MCHC RDW Std Deviation RDW Coeff of Cristela Plt Count MPV Sodium Potassium Chloride Carbon Dioxide Anion Gap BUN Creatinine Est Cr Clr Drug Dosing Est GFR ( Amer) Est GFR (Non-Af Amer) BUN/Creatinine Ratio Glucose POC Glucose (other) 135 H 148 H Calcium Ionized Calcium 1.01 L Random Cortisol Urine Color Urine Appearance Urine pH Ur Specific Lamont Urine Protein Urine Glucose (UA) Urine Ketones Urine Blood Urine Nitrite Urine Bilirubin Urine Urobilinogen Ur Leukocyte Esterase Urine WBC (Auto) Urine RBC (Auto) U Hyaline Cast (Auto) U Epithel Cells (Auto) Urine Bacteria (Auto) Calcium Oxalate Crystal Amorphous Sediment Urine Yeast Ur Random Creatinine U Random Total Protein Protein/Creatinin Ratio 11/30/19 11/30/19 07:14 08:00 WBC RBC Hgb Hct MCV MCH MCHC RDW Std Deviation RDW Coeff of Cristela Plt Count MPV Sodium Potassium Chloride Carbon Dioxide Anion Gap BUN Creatinine Est Cr Clr Drug Dosing Est GFR ( Amer) Est GFR (Non-Af Amer) BUN/Creatinine Ratio Glucose POC Glucose (other) 148 H 146 H Calcium Ionized Calcium Random Cortisol Urine Color Urine Appearance Urine pH Ur Specific Lamont Urine Protein Urine Glucose (UA) Urine Ketones Urine Blood Urine Nitrite Urine Bilirubin Urine Urobilinogen Ur Leukocyte Esterase Urine WBC (Auto) Urine RBC (Auto) U Hyaline Cast (Auto) U Epithel Cells (Auto) Urine Bacteria (Auto) Calcium Oxalate Crystal Amorphous Sediment Urine Yeast Ur Random Creatinine U Random Total Protein Protein/Creatinin Ratio Medications Administered Current Inpatient Medications Acetaminophen (Tylenol) 650 mg PO Q4H PRN PRN Reason: Pain or Fever Stop: 12/26/19 16:14 Al Hydrox/Mg Hydrox/Simethicone (Maalox) 15 ml PO Q4H PRN PRN Reason: Dyspepsia Stop: 12/26/19 16:14 Atorvastatin Calcium (Lipitor) [address] [facility] Stop: 12/27/19 08:59 Last Admin: 11/28/19 09:10 Dose: 80 mg Documented by: Dextrose (Dextrose 50%) 25 - 50 ml IV UD PRN; Protocol PRN Reason: Hypoglycemia Protocol Stop: 12/26/19 16:14 Fluconazole (Diflucan) [address] [facility]; Protocol Stop: 12/07/19 08:59 Last Admin: 11/30/19 07:46 Dose: 100 mg Documented by: Glucagon (Glucagen) 1 mg SQ UD PRN; Protocol PRN Reason: Hypoglycemia Protocol Stop: 12/26/19 16:14 Glucose (Dex4 Glucose) 4 - 8 tabs PO UD PRN; Protocol PRN Reason: Hypoglycemia Protocol Stop: 12/26/19 16:14 Glucose (Glucose 40%) 15 - 30 gm PO UD PRN; Protocol PRN Reason: Hypoglycemia Protocol Stop: 12/26/19 16:14 Heparin Sodium (Beef Lung) (Heparin Sod 10 Unit/Ml Flush) 5 ml FLUSH PRN PRN PRN Reason: Flush Stop: 12/29/19 12:58 Last Admin: 11/29/19 13:24 Dose: 5 ml Documented by: Heparin Sodium (Porcine) (Heparin Sodium (Porcine)) 5,000 units SC TID YULI Stop: 12/29/19 13:59 Last Admin: 11/30/19 07:47 Dose: 5,000 units Documented by: Hydromorphone HCl (Dilaudid) 0.5 mg IV Q6 PRN PRN Reason: Severe Pain Stop: 12/10/19 16:14 Last Admin: 11/29/19 16:43 Dose: 0.5 mg Documented by: Norepinephrine Bitartrate 8 mg (/ Dextrose) 508 mls @ 23.432 mls/hr IV .[id number] YULI; Protocol Stop: 12/28/19 05:29 Last Titration: 11/30/19 07:39 Dose: 0.05 mcg/kg/min, 23.4 mls/hr Documented by: Daptomycin 600 mg/ Syringe 12 mls @ 6 mls/min IV Q2D@2100 YULI; Protocol Stop: 01/09/20 20:59 Last Admin: 11/28/19 20:52 Dose: 6 mls/min Documented by: Insulin Human Regular 250 (units/ Sodium Chloride) 250 mls @ 2.3 mls/hr IV .Q24H YULI; Protocol Stop: 12/29/19 09:59 Last Titration: 11/30/19 07:40 Dose: 2.3 units/hr, 2.3 mls/hr Documented by: Piperacillin Sod/Tazobactam (Sod 4.5 gm/ Dextrose) 120 mls @ 30 mls/hr IV Q12H [facility]; Protocol Stop: 01/09/20 15:59 Last Infusion: 11/30/19 08:17 Dose: Infused Documented by: Insulin Aspart (Novolog Flexpen) 0 units SC ACHS [facility]; Protocol Stop: 12/26/19 17:14 Last Admin: 11/30/19 07:39 Dose: Not Given Documented by: Miscellaneous (Carbohydrates For Hypoglycemia) 15 - 30 gm PO UD PRN PRN Reason: Hypoglycemia Protocol Stop: 12/26/19 16:14 Miscellaneous Information (Consult) 1 ea N/A UD PRN PRN Reason: Consult Stop: 12/28/19 04:54 Miscellaneous Information (Consult Glycemic Management Pharmacy) 1 ea N/A UD PRN PRN Reason: Consult Stop: 12/28/19 10:07 Miscellaneous Information (Consult) 1 ea N/A UD PRN PRN Reason: Consult Stop: 12/28/19 10:07 Miscellaneous Information (Consult) 1 ea N/A UD PRN PRN Reason: Consult Stop: 12/28/19 18:00 Ondansetron HCl (Zofran) 4 mg IV Q4H PRN PRN Reason: Nausea Stop: 12/28/19 06:00 Last Admin: 11/29/19 16:43 Dose: 4 mg Documented by: Oxycodone HCl (Roxicodone Immediate Rel) 5 mg PO Q6H PRN PRN Reason: Moderate Pain Stop: 12/10/19 16:49 Last Admin: 11/27/19 20:47 Dose: 5 mg Documented by: Pantoprazole Sodium (Protonix) 40 mg PO BID [facility] Stop: 01/24/20 09:01 Last Admin: 11/30/19 07:46 Dose: 40 mg Documented by: Sucralfate (Carafate) 1 gm PO QID [facility] Stop: 12/27/19 12:59 Last Admin: 11/30/19 07:46 Dose: 1 gm Documented by:
[2019-11-30] MEDS: INSULIN REGULAR 250 UNITS in SODIUM CHLORIDE 0.9% 247.5 ML IV SCH (10:28)
[2019-11-30] MEDS ORDERED: INSULIN GLARGINE SOLOSTAR 100 UNITS/ML 3 ML PEN SC ONE ×2 (11:15→21:00)
[2019-11-30] MEDS: OXYCODONE HCL IR 5 MG TAB (IMMEDIATE RELEASE) PO PRN (11:26)
--- NOTE | 2019-11-30 11:33 | Pharmacy Report ---
Pharmacy Glycemic Short Note 2 - Date of Service November 30, 2019 - Glycemic Short BSG Results (Last 24 hours): 11/29/19 11/29/19 11/29/19 11:27 12:42 12:51 Glucose 249 H POC Glucose (other) 259 H 237 H 11/29/19 11/29/19 11/29/19 13:21 14:35 16:19 Glucose POC Glucose (other) 227 H 214 H 207 H 11/29/19 11/29/19 11/29/19 17:48 20:07 21:05 Glucose 203 H POC Glucose (other) 202 H 196 H 11/29/19 11/30/19 11/30/19 22:06 00:09 02:07 Glucose POC Glucose (other) 180 H 161 H 134 H 11/30/19 11/30/19 11/30/19 03:06 04:08 04:13 Glucose 131 H POC Glucose (other) 124 H 125 H 11/30/19 11/30/19 11/30/19 05:07 06:09 07:14 Glucose POC Glucose (other) 135 H 148 H 148 H 11/30/19 11/30/19 11/30/19 08:00 08:54 09:58 Glucose POC Glucose (other) 146 H 150 H 152 H Outpatient Anti-diabetic Regimen: * Lantus 20 units SC HS * Metformin * Dulaglutide * Canagliflozin * A1c = 7.8 % on 11/27/19 The patient is currently receiving: * Basal insulin: Lantus 15-20 units SC BID * Insulin drip, currently @ 1.8 units/hr Risk Factors for Insulin Resistance: * Infection: sepsis/MSSA bacteremia 2nd osteomyelitis * Pressors: norepinephrine * IVF: Na bicarb gtt w KCl 30 mEq/L mixed in D5W started 11/27 PM, stopped 11/28 PM * Diet: NPO ASSESSMENT: * 59 yo M with sepsis/MSSA bacteremia 2nd osteomyelitis complicated by splenic infarct with new onset chest pain and wide-complex tachyarrhythmia prompting pathology lab technician evaluation on 11/27 * Pharmacy consulted for glycemic management on 11/27 2nd BSG's >300 mg/dL x2 on 11/26 * BSG's initially elevated due to critical illness and basal insufficiency on 11/26 and were persistently elevated 11/27 PM to 11/28 AM 2nd initiation of bicarb drip mixed in D5W. Basal insufficiency has been corrected and bicarb drip has been turned off * Insulin drip rates have been declining and BSG's have been good since bicarb drip stopped yesterday. Drip currently at 1.8 units/hr her RN/ICU rounds. OK to transition off per Dr. Elder * Patient will not likely require a large dose of Lantus at this time as insulin drip rates have been trending down, basal insufficiency has been corrected, and bicarb drip has been turned off. Also, if HD initiated today, insulin sensitivity could increase and patient is currently NPO. * Similar to above, Novolog parameters may not need to be as aggressive as prior. Will resume with weight-based moderate stress estimate PLAN FOR INPATIENT GLYCEMIC CONTROL: * Continue to hold outpatient oral diabetes medications * Discontinue insulin drip @ 1600 today, or sooner if drip rate < 1 unit/hr and BSG's <180 mg/dL x2 consecutive checks * Basal insulin * Lantus 25 units SC x1 now * Lantus 0-15 units tonight depending on BSG. See MAR for details. * Bolus insulin * Novolog q4h * Goal range: 120-160 mg/dL * Correction factor: 20 mg/dL/unit * Carb ratio: 6 g CHO/unit
--- NOTE | 2019-11-30 14:50 | Nephrology Progress Note ---
Date of Service November 30, 2019 Assessment & Plan (1) TITA (acute kidney injury): nonoliguric TITA w/ baseline creatinine 1.2 as of July 2019. likely multifactorial ATN>> he has septic shock and MSSA bacteremia w/ splenic infarcts/septic emboli from diabetic foot ulcer; he was already in renal failure on arrival and then needed 2 IV contrast dye loads for CT scan on admission and L heart cath November 27; he had poor po intake for several days prior to and after presentation and was on medications that can worsen renal failure (sacubitril/valsartan, canagliflozin particularly). Even before septic shock developed his urine was exceptionally concentrated showing dehydration; repeat urinalysis remarkable for ongoing significantly concentrated urine,ketonuria, ongoing microhematuria and proteinuria, quantified at 800 mg daily on spot ratio. He had saline for several hours after cardiac cath 11/27 per protocol; he has been getting IV fluids steadily nearly 24 hours now as well. >> Remains on room air and still does not examine as volume overloaded; renal function plateaued in the low fives creatinine and past 24 hours not oliguric; electrolyte abnormalities persist but are generally improving with resuscitation and repletion: No indication for dialysis today. He may well need it next 24 to 48 hours however -Continue to hold Entresto -asked pharmacy to dose adjust fluconazole for his degree of renal dysfunction -IVF as below since he is NPO (2) MSSA bacteremia: now on daptomycin and Zosyn; 4/4 bottles on 11/25 +; TTE w/o vegetation or new WMA; suspect splenic infarcts are septic emboli -f/u repeat cultures: No growth to date still -defer to primary service to eval source > favor infected toe; no recent dental infections/procedures; also has screws in L shoulder after rotator cuff repair and ICD wires (3) Septic shock: continue pressor support; needs declining (4) Electrolyte and fluid disorder: hypokalemia, borderline but basically improved hypocalcemia, improving bicarbonate on bicarbonate drip until this a.m. w/ normal lactate. mag ok -Potassium rich bicarb gtt has been stopped; as he is taking almost nothing p.o. and has ongoing pressor requirement and remains on room air, believe he will benefit from further IV fluids: 1/2 NS w/ 75 mEq/L sodium bicarb and W/ 30 mEq/L K at 80 mL/hr and reassess fluid composition frequently -check bmp and ionized calcium often and adjust fluids as indicated > next set ordered for 2100 Care coordinated with doctors Cece and Jerrod Admission and Anticipated Discharge Date Admission Date: November 26, 2019 Subjective Abdomen remains distended and he has exquisite pain with taking p.o. swallowing and epigastric area. Urine output dropped off overnight but increased somewhat on daylight today. Levophed requirements going down; bicarb drip off. Denies shortness of breath, denies edema, denies chest pressure Review of Systems Review of Systems: All systems reviewed & are unremarkable except as noted in HPI & below Physical Exam Constitutional: well developed, well nourished and + obese; no acute distress Room air Eyes: EOM intact bilaterally ENMT: Ears: no external ear abnormality Nose: no external nose abnormality Mouth: + dry oral mucous membranes Neck: no nuchal rigidity Respiratory: normal respiratory effort and + tachypneic; no respiratory distress, no labored breathing and no cough Auscultation: lungs clear to auscultation bilaterally and + diminished lung sounds Cardiovascular: Rate/Rhythm: regular rhythm and + tachycardic Extremities: no edema Gastrointestinal (Abdomen): Inspection/Auscultation: + abdomen distended and normal bowel sounds (Or slightly diminished) Percussion/Palpation: + abdomen tender (Diffusely tender), + guarding and abdomen soft Musculoskeletal: no cyanosis or clubbing, extremities motor strength 5/5 Skin: no rashes, warm and dry Psychiatric: A+Ox3, euthymic affect Genitourinary: Bauer with scant urine Results & Data ([facility]) Vital Signs (Past 12 Hours) Vital Signs Temp Pulse Resp BP Pulse Ox 11/30/19 11:45 111 H 21 94 11/30/19 11:31 108 H 21 115/63 96 11/30/19 11:30 106 H 20 96 11/30/19 11:15 103 H 25 H 95 11/30/19 11:00 113 H 33 H 107/64 93 11/30/19 10:45 104 H 22 95 11/30/19 10:30 108 H 27 H 93 11/30/19 10:27 108 H 26 H 114/70 95 11/30/19 10:15 108 H 24 93 11/30/19 10:07 100 H 27 H 103/77 11/30/19 10:05 113 H 23 117/79 11/30/19 10:00 101 H 23 95 11/30/19 09:45 97 H 23 95 11/30/19 09:30 106 H 21 11/30/19 09:15 112 H 23 94 11/30/19 09:00 103 H 21 92 11/30/19 08:45 105 H 24 11/30/19 08:30 99 H 24 11/30/19 08:15 99 H 23 94 11/30/19 08:00 108 H 22 94 11/30/19 07:45 112 H 19 94 11/30/19 07:30 117 H 22 93 11/30/19 06:45 37.0 C 110 H 21 95 11/30/19 06:30 113 H 24 94 11/30/19 06:15 104 H 26 H 93 11/30/19 06:00 113 H 20 92 11/30/19 05:30 107 H 19 93 11/30/19 05:15 108 H 26 H 94 11/30/19 05:00 106 H 28 H 93 11/30/19 04:45 104 H 25 H 94 11/30/19 04:30 116 H 25 H 92 11/30/19 04:15 114 H 22 92 11/30/19 03:30 103 H 26 H 91 11/30/19 03:15 112 H 23 93 11/30/19 03:00 110 H 24 93 11/30/19 02:45 106 H 27 H 93 Laboratory Results 11/30/19 04:13 11/30/19 04:13
[2019-11-30] MEDS: NOREPINEPHRINE (Adult) 8 MG in DEXTROSE 5% 500 ML IV SCH (15:21)
[2019-11-30] MEDS: SODIUM BICARBONATE IV SCH (15:53)
[2019-11-30] MEDS: [UNRECOGNIZED DRUG - OTHER] IV SCH (15:53)
[2019-11-30] MEDS: POTASSIUM CHLORIDE IV SCH (15:53)
[2019-11-30] MEDS ORDERED: CEFAZOLIN 2000MG 2,000 MG/15 ML SYR IV ONE (16:00)
--- NOTE | 2019-11-30 16:25 | Critical Care Progress Note ---
Date of Service November 30, 2019 Assessment & Plan (1) Admitted to intensive care unit: Reason Critically Ill: 59-year-old male presenting with sepsis with septic shock with new onset chest pain and concerning wide-complex tachyarrhythmia requiring close hemodynamic monitoring and further intervention. PLAN: Neuro: NEURO -[facility] ICU: Negative Resp: Adequate oxygen saturation on room air CV: Chest pain -Possibly contributed by duodenitis wide-complex tachycardia: -Possible pacer spike causing artifact not true ventricular tachycardia Hypotension -Decreasing vasoactive medication requirement at this time Fluids/Renal: Acute kidney injury: Electrolytes stabilizing -Discussed with nephrology -Gentle hydration -Advance diet as tolerated ID: Sepsis with septic shock -Requiring vasoactive medication: Requirements decreasing -Via arterial line patient appears he needs atrial kick to maintain adequate perfusion pressure -De-escalate coverage as no additional organisms seen at this time on repeat cultures -Patient worsened after de-escalation of therapy MSSA bacteremia -Repeat blood culture showed no growth to date GI/Nutrition: -Known duodenitis -PPI twice daily x8 weeks per GI -Sucralfate -Empiric Diflucan for 14 days per GI -Advance diet as tolerated Heme: Splenic infarct -Question infectious origin versus thromboembolic disease DVT prophylaxis: Heparin 3 times daily -heparin locks in the dialysis catheter Endocrine: ICU hyperglycemia protocol Poorly controlled diabetes type 2 -Random cortisol adequate Vascular access: Temporary dialysis catheter with vascular access placed into left femoral vein on 11/29/2019 -Femoral vein chosen over internal jugular is to allow access for any need for EP -Left radial arterial line Code Status: Full Disposition: ICU (2) Chest pain: (3) Wide-complex tachycardia: (4) Sepsis: (5) Duodenitis: (6) Heart failure: (7) Cardiomyopathy: (8) Obesity: (9) Renal insufficiency: (10) Ulcer of left foot due to type 2 diabetes mellitus: (11) TITA (acute kidney injury): (12) Presence of biventricular implantable cardioverter-defibrillator (ICD): (13) Splenic infarct: Admission and Anticipated Discharge Date Admission Date: November 26, 2019 Subjective No overnight events. No significant complaints Physical Exam Physical Exam: General: Alert. nontoxic. Skin: Warm, dry, Head: Atraumatic Ears, nose, mouth and throat: airway patent Cardiovascular: Normal peripheral perfusion Respiratory: no respiratory distress Gastrointestinal: Non distended Musculoskeletal: Left second toe was swollen, painted with iodine, no obvious lymphangitis or streaking up the leg. Results & Data Results & Data ([facility]) Vital Signs (Past 12 Hours) Vital Signs Temp Pulse Resp BP Pulse Ox 11/30/19 11:45 111 H 21 94 11/30/19 11:31 108 H 21 115/63 96 11/30/19 11:30 106 H 20 96 11/30/19 11:15 103 H 25 H 95 11/30/19 11:00 113 H 33 H 107/64 93 11/30/19 10:45 104 H 22 95 11/30/19 10:30 108 H 27 H 93 11/30/19 10:27 108 H 26 H 114/70 95 11/30/19 10:15 108 H 24 93 11/30/19 10:07 100 H 27 H 103/77 11/30/19 10:05 113 H 23 117/79 11/30/19 10:00 101 H 23 95 11/30/19 09:45 97 H 23 95 11/30/19 09:30 106 H 21 11/30/19 09:15 112 H 23 94 11/30/19 09:00 103 H 21 92 11/30/19 08:45 105 H 24 11/30/19 08:30 99 H 24 11/30/19 08:15 99 H 23 94 11/30/19 08:00 108 H 22 94 11/30/19 07:45 112 H 19 94 11/30/19 07:30 117 H 22 93 11/30/19 06:45 37.0 C 110 H 21 95 11/30/19 06:30 113 H 24 94 11/30/19 06:15 104 H 26 H 93 11/30/19 06:00 113 H 20 92 11/30/19 05:30 107 H 19 93 11/30/19 05:15 108 H 26 H 94 11/30/19 05:00 106 H 28 H 93 11/30/19 04:45 104 H 25 H 94 11/30/19 04:30 116 H 25 H 92 Laboratory Results 11/30/19 11/30/19 11/30/19 Range/Units 14:48 13:00 10:53 WBC (4.8-10.8) K/uL RBC (4.7-6.1) M/uL Hgb (14.0-18.0) g/dL Hct (42-52) % MCV (80-100) fL MCH (25-34) pg MCHC (32-36) g/dL RDW Std Deviation (36.4-46.3) fL RDW Coeff of Cristela (11.5-14.5) % Plt Count (130-400) K/uL MPV (7.4-10.4) fL Sodium (136-145) mmol/L Potassium (3.5-5.1) mmol/L Chloride (98-107) mmol/L Carbon Dioxide (21-32) mmol/L Anion Gap (3-11) BUN (7-18) mg/dl Creatinine (0.6-1.4) mg/dl Est Cr Clr Drug Dosing ml/min Est GFR ( Amer) Est GFR (Non-Af Amer) BUN/Creatinine Ratio (-20) Glucose (70-99) mg/dl POC Glucose 162 H (70-99) mg/dl POC Glucose (other) 146 H 149 H (70-99) mg/dl Calcium (8.5-10.1) mg/dl Ionized Calcium (1.12-1.32) mmol/L 11/30/19 11/30/19 11/30/19 Range/Units 09:58 08:54 08:00 WBC (4.8-10.8) K/uL RBC (4.7-6.1) M/uL Hgb (14.0-18.0) g/dL Hct (42-52) % MCV (80-100) fL MCH (25-34) pg MCHC (32-36) g/dL RDW Std Deviation (36.4-46.3) fL RDW Coeff of Cristela (11.5-14.5) % Plt Count (130-400) K/uL MPV (7.4-10.4) fL Sodium (136-145) mmol/L Potassium (3.5-5.1) mmol/L Chloride (98-107) mmol/L Carbon Dioxide (21-32) mmol/L Anion Gap (3-11) BUN (7-18) mg/dl Creatinine (0.6-1.4) mg/dl Est Cr Clr Drug Dosing ml/min Est GFR ( Amer) Est GFR (Non-Af Amer) BUN/Creatinine Ratio (10-20) Glucose (70-99) mg/dl POC Glucose (70-99) mg/dl POC Glucose (other) 152 H 150 H 146 H (70-99) mg/dl Calcium (8.5-10.1) mg/dl Ionized Calcium (1.12-1.32) mmol/L 11/30/19 11/30/19 11/30/19 Range/Units 07:14 06:09 05:07 WBC (4.8-10.8) K/uL RBC (4.7-6.1) M/uL Hgb (14.0-18.0) g/dL Hct (42-52) % MCV (80-100) fL MCH (25-34) pg MCHC (32-36) g/dL RDW Std Deviation (36.4-46.3) fL RDW Coeff of Cristela (11.5-14.5) % Plt Count (130-400) K/uL MPV (7.4-10.4) fL Sodium (136-145) mmol/L Potassium (3.5-5.1) mmol/L Chloride (98-107) mmol/L Carbon Dioxide (21-32) mmol/L Anion Gap (3-11) BUN (7-18) mg/dl Creatinine (0.6-1.4) mg/dl Est Cr Clr Drug Dosing ml/min Est GFR ( Amer) Est GFR (Non-Af Amer) BUN/Creatinine Ratio (10-20) Glucose (70-99) mg/dl POC Glucose (70-99) mg/dl POC Glucose (other) 148 H 148 H 135 H (70-99) mg/dl Calcium (8.5-10.1) mg/dl Ionized Calcium (1.12-1.32) mmol/L 11/30/19 11/30/19 11/30/19 Range/Units 04:13 04:13 04:13 WBC 14.31 H (4.8-10.8) K/uL RBC 3.55 L (4.7-6.1) M/uL Hgb 10.0 L (14.0-18.0) g/dL Hct 28.7 L (42-52) % MCV 80.8 (80-100) fL MCH 28.2 (25-34) pg MCHC 34.8 (32-36) g/dL RDW Std Deviation 46.6 H (36.4-46.3) fL RDW Coeff of Cristela 15.4 H (11.5-14.5) % Plt Count 160 (130-400) K/uL MPV 9.7 (7.4-10.4) fL Sodium 135 L (136-145) mmol/L Potassium 3.4 L (3.5-5.1) mmol/L Chloride 105 (98-107) mmol/L Carbon Dioxide 19 L (21-32) mmol/L Anion Gap 11.0 (3-11) BUN 83 H (7-18) mg/dl Creatinine 5.18 H* (0.6-1.4) mg/dl Est Cr Clr Drug Dosing 21.6 ml/min Est GFR ( Amer) 13.2 Est GFR (Non-Af Amer) 11.4 BUN/Creatinine Ratio 15.9 (10-20) Glucose 131 H (70-99) mg/dl POC Glucose (70-99) mg/dl POC Glucose (other) (70-99) mg/dl Calcium 7.3 L (8.5-10.1) mg/dl Ionized Calcium 1.01 L (1.12-1.32) mmol/L 11/30/19 11/30/19 11/30/19 Range/Units 04:08 03:06 02:07 WBC (4.8-10.8) K/uL RBC (4.7-6.1) M/uL Hgb (14.0-18.0) g/dL Hct (42-52) % MCV (80-100) fL MCH (25-34) pg MCHC (32-36) g/dL RDW Std Deviation (36.4-46.3) fL RDW Coeff of Cristela (11.5-14.5) % Plt Count (130-400) K/uL MPV (7.4-10.4) fL Sodium (136-145) mmol/L Potassium (3.5-5.1) mmol/L Chloride (98-107) mmol/L Carbon Dioxide (21-32) mmol/L Anion Gap (3-11) BUN (7-18) mg/dl Creatinine (0.6-1.4) mg/dl Est Cr Clr Drug Dosing ml/min Est GFR ( Amer) Est GFR (Non-Af Amer) BUN/Creatinine Ratio (10-20) Glucose (70-99) mg/dl POC Glucose (70-99) mg/dl POC Glucose (other) 125 H 124 H 134 H (70-99) mg/dl Calcium (8.5-10.1) mg/dl Ionized Calcium (1.12-1.32) mmol/L 11/30/19 11/29/19 11/29/19 Range/Units 00:09 22:06 21:05 WBC (4.8-10.8) K/uL RBC (4.7-6.1) M/uL Hgb (14.0-18.0) g/dL Hct (42-52) % MCV (80-100) fL MCH (25-34) pg MCHC (32-36) g/dL RDW Std Deviation (36.4-46.3) fL RDW Coeff of Cristela (11.5-14.5) % Plt Count (130-400) K/uL MPV (7.4-10.4) fL Sodium 133 L (136-145) mmol/L Potassium 3.2 L (3.5-5.1) mmol/L Chloride 103 (98-107) mmol/L Carbon Dioxide 16 L (21-32) mmol/L Anion Gap 14.0 H (3-11) BUN 88 H (7-18) mg/dl Creatinine 5.26 H* (0.6-1.4) mg/dl Est Cr Clr Drug Dosing 21.3 ml/min Est GFR ( Amer) 13.0 Est GFR (Non-Af Amer) 11.2 BUN/Creatinine Ratio 16.7 (10-20) Glucose 203 H (70-99) mg/dl POC Glucose (70-99) mg/dl POC Glucose (other) 161 H 180 H (70-99) mg/dl Calcium 7.3 L (8.5-10.1) mg/dl Ionized Calcium (1.12-1.32) mmol/L 11/29/19 11/29/19 11/29/19 Range/Units 20:07 17:48 16:19 WBC (4.8-10.8) K/uL RBC (4.7-6.1) M/uL Hgb (14.0-18.0) g/dL Hct (42-52) % MCV (80-100) fL MCH (25-34) pg MCHC (32-36) g/dL RDW Std Deviation (36.4-46.3) fL RDW Coeff of Cristela (11.5-14.5) % Plt Count (130-400) K/uL MPV (7.4-10.4) fL Sodium (136-145) mmol/L Potassium (3.5-5.1) mmol/L Chloride (98-107) mmol/L Carbon Dioxide (21-32) mmol/L Anion Gap (3-11) BUN (7-18) mg/dl Creatinine (0.6-1.4) mg/dl Est Cr Clr Drug Dosing ml/min Est GFR ( Amer) Est GFR (Non-Af Amer) BUN/Creatinine Ratio (10-20) Glucose (70-99) mg/dl POC Glucose (70-99) mg/dl POC Glucose (other) 196 H 202 H 207 H (70-99) mg/dl Calcium (8.5-10.1) mg/dl Ionized Calcium (1.12-1.32) mmol/L Coding Level of Care Code Critical Care 1st 30-74 mins Diagnoses Admitted to intensive care unit Z78.9 Chest pain R07.9 Wide-complex tachycardia I47.2 Sepsis A41.9 Duodenitis K29.80 Heart failure I50.9 Cardiomyopathy I42.9 Obesity E66.9 Renal insufficiency N28.9 Ulcer of left foot due to type 2 diabetes mellitus E11.621; L97.529 TITA (acute kidney injury) N17.9 Presence of biventricular implantable cardioverter-defibrillator (ICD) Z95.810 Splenic infarct D73.5 Time Spent (min) 45 Comment I have personally spent 45 minutes of critical care time in the direct manageme nt of this patient. This is a life/limb threatening event. This includes time spent evaluating patient, direct bedside care, chart review, placing orders, interpretation of diagnostic studies, discussion with consultants, patient, and/or family members regarding treatment decisions, as well as other required patient management activities. This time is exclusive of all separately billable procedures, and teaching time and separate from and in addition to any other critical care service time.
--- NOTE | 2019-11-30 19:45 | Electrocardiogram Report ---
Test Reason : Blood Pressure : / mmHG Vent. Rate : 115 BPM Atrial Rate : 065 BPM P-R Int : 000 ms QRS Dur : 154 ms QT Int : 410 ms P-R-T Axes : 000 006 207 degrees QTc Int : 567 ms Ventricular-paced rhythm with occasional Premature ventricular complexes and fusion beats Abnormal ECG When compared with ECG of 29-NOV-2019 10:10, Premature ventricular complexes are now Present Vent. rate has increased BY 13 BPM Confirmed by Evan Cohen ([id number]) on 11/30/2019 7:45:00 PM Referred By: REFERRED SELF Confirmed By:Xu Cohen
--- NOTE | 2019-11-30 20:54 | Hospitalist Progress Note ---
Date of Service November 30, 2019 Assessment & Plan (1) Septic shock: secondary to MSSA bacteremia, Left toe culprit nonhealing wound due to DM type 2, with osteomyelitis Patient is a 59-year-old male with history of nonischemic cardiomyopathy, status post AICD pacemaker placement, diabetes type 2, hypertension, presented with nausea vomiting abdominal pain. --Remains on Levophed, IV fluids Afebrile Leukocytosis improving -- repeat blood cultures: Negative so far --Transitioned from Dapto and Zosyn to cefazolin Continue to wean off from Levophed -- Wound Care Consulted-does not need I&D at this point, may need orthopedic evaluation for possible surgical intervention when stable (2) Splenic infarct: Likely secondary to above (3) TITA (acute kidney injury): Likely Secondary to Vancomycin, Septic Shock Renal ultrasound did not show any renal artery obstruction and good flow in the veins Vancomycin discontinued management of Sepsis as per above General Forecaster consulted --Bicarb drip continued Creatinine and urine output slightly improving Discussed with Dr. Meléndez today, no indications for hemodialysis at this point, will continue to closely monitor the patient (4) Duodenitis: Noted in CAT scan s/p EGD Likely the cause for nausea and vomiting-will give symptomatic management continue p.o. Protonix and sulfate (5) Nausea and vomiting: secondary to above Resolved (6) NICM (nonischemic cardiomyopathy): (7) CHF (congestive heart failure): Chronic Systolic Congestive heart failure and s/p ICD placement in July 2019. Echo completed last week as an outpatient. Seems unlikely to be source of infarcts. Wi EKG completed in ED no new changes. No evidence of ACS and no evidence of acute CHF -- euvolemic Pacemaker interrogation: Appropriate pacemaker function as per Dr. eRed (8) DM (diabetes mellitus): On insulin drip a1c 7.8 (9) HTN (hypertension): hold Sacubitril- Valsartan in light of hypotension (10) DVT prophylaxis: SCDs heparin twice daily Disposition: Pending Case discussed with patient's Sister Miryam yesterday evening She was inquiring about possible transfer of patient to tertiary care level of care, requested funds development director TREASURE to discuss with patient's sister Again call patient's sister today, case discussed in detail and at length All questions were answered She is understanding, agreeable, comfortable with plan of care Admission and Anticipated Discharge Date Admission Date: November 26, 2019 Subjective Follow-up for sepsis, bacteremia, acute renal failure Seen resting in bed, not in distress States he feels tired, still with no appetite Reports upper abdominal pain, slightly improving Denies shortness of breath, chest pain, dizziness, palpitations No leg or foot pain Denies other symptoms Review of Systems Review of Systems: All systems reviewed & are unremarkable except as noted in HPI & below Physical Exam Physical Exam: General- oriented x 3, not in distress, speaks in sentences with no effort or accessory muscle use Eyes- anicteric Neck- no JVD Lungs- clear breath sounds bilaterally, no wheezing, no crackles bilaterally Heart- normal rate, regular rhythm; no murmurs Abdomen- normal bowel sounds, nondistended, soft, nontender Extremities-mild pretibial edema, no calf tenderness Neuro- alert, oriented x 3; no gross focal neurologic deficits Skin- warm & dry Results & Data Results & Data ([facility]) Vital Signs (Past 12 Hours) Vital Signs Pulse Resp BP Pulse Ox 11/30/19 18:40 112 H 20 89/59 L 96 11/30/19 18:30 107 H 21 97 11/30/19 18:25 105 H 22 111/61 97 11/30/19 18:15 118 H 26 H 97 11/30/19 18:10 116 H 23 82/55 L 79 L 11/30/19 18:00 107 H 20 96 11/30/19 17:56 116 H 23 93/46 L 98 11/30/19 17:45 105 H 20 88 L 11/30/19 17:40 108 H 24 93/69 L 96 11/30/19 17:30 101 H 18 95 11/30/19 17:25 102 H 20 93/52 L 96 11/30/19 17:15 102 H 23 93 11/30/19 17:10 104 H 20 90/58 L 96 11/30/19 17:00 102 H 23 94 11/30/19 16:55 106 H 22 84/55 L 94 11/30/19 16:45 100 H 18 93 11/30/19 16:40 103 H 19 83/50 L 93 11/30/19 16:30 105 H 19 93 11/30/19 16:27 107 H 20 77/50 L 92 11/30/19 16:25 104 H 20 72/42 L 94 11/30/19 16:15 100 H 23 92 11/30/19 16:10 107 H 20 76/51 L 11/30/19 16:00 97 H 27 H 89 L 11/30/19 15:55 105 H 20 86/53 L 94 11/30/19 15:45 108 H 21 92 11/30/19 15:40 113 H 33 H 94/50 L 94 11/30/19 15:30 114 H 20 95 11/30/19 15:25 111 H 19 101/46 L 94 11/30/19 15:21 107 H 22 93/52 L 93 11/30/19 15:15 107 H 21 93 11/30/19 15:11 106 H 23 94 11/30/19 15:00 106 H 21 93 11/30/19 14:55 110 H 18 97/50 L 95 11/30/19 14:46 102 H 23 79/56 L 92 11/30/19 14:45 103 H 21 92 11/30/19 14:40 110 H 19 76/59 L 91 11/30/19 14:30 110 H 19 95 11/30/19 14:25 102 H 19 87/55 L 92 11/30/19 14:15 102 H 22 93 11/30/19 14:00 109 H 21 84/64 L 92 11/30/19 13:56 104 H 23 101/73 94 11/30/19 13:45 105 H 25 H 93 11/30/19 13:30 107 H 21 93 11/30/19 13:15 103 H 19 92 11/30/19 13:03 113 H 26 H 97/66 L 92 11/30/19 13:00 108 H 21 83/66 L 91 11/30/19 12:45 108 H 22 93 11/30/19 12:30 111 H 21 109/66 94 11/30/19 12:15 109 H 21 93 11/30/19 12:00 102 H 23 91/55 L 94 11/30/19 11:45 111 H 21 94 11/30/19 11:31 108 H 21 115/63 96 11/30/19 11:30 106 H 20 96 11/30/19 11:15 103 H 25 H 95 11/30/19 11:00 113 H 33 H 107/64 93 11/30/19 10:45 104 H 22 95 11/30/19 10:30 108 H 27 H 93 11/30/19 10:27 108 H 26 H 114/70 95 11/30/19 10:15 108 H 24 93 11/30/19 10:07 100 H 27 H 103/77 11/30/19 10:05 113 H 23 117/79 11/30/19 10:00 101 H 23 95 11/30/19 09:45 97 H 23 95 11/30/19 09:30 106 H 21 11/30/19 09:15 112 H 23 94 11/30/19 09:00 103 H 21 92 Laboratory Results Laboratory Results - last 24 hr 11/29/19 11/29/19 11/30/19 21:05 22:06 00:09 WBC RBC Hgb Hct MCV MCH MCHC RDW Std Deviation RDW Coeff of Cristela Plt Count MPV Sodium 133 L Potassium 3.2 L Chloride 103 Carbon Dioxide 16 L Anion Gap 14.0 H BUN 88 H Creatinine 5.26 H* Est Cr Clr Drug Dosing 21.3 Est GFR ( Amer) 13.0 Est GFR (Non-Af Amer) 11.2 BUN/Creatinine Ratio 16.7 Glucose 203 H POC Glucose POC Glucose (other) 180 H 161 H Calcium 7.3 L Ionized Calcium 11/30/19 11/30/19 11/30/19 02:07 03:06 04:08 WBC RBC Hgb Hct MCV MCH MCHC RDW Std Deviation RDW Coeff of Cristela Plt Count MPV Sodium Potassium Chloride Carbon Dioxide Anion Gap BUN Creatinine Est Cr Clr Drug Dosing Est GFR ( Amer) Est GFR (Non-Af Amer) BUN/Creatinine Ratio Glucose POC Glucose POC Glucose (other) 134 H 124 H 125 H Calcium Ionized Calcium 11/30/19 11/30/19 11/30/19 04:13 04:13 04:13 WBC 14.31 H RBC 3.55 L Hgb 10.0 L Hct 28.7 L MCV 80.8 MCH 28.2 MCHC 34.8 RDW Std Deviation 46.6 H RDW Coeff of Cristela 15.4 H Plt Count 160 MPV 9.7 Sodium 135 L Potassium 3.4 L Chloride 105 Carbon Dioxide 19 L Anion Gap 11.0 BUN 83 H Creatinine 5.18 H* Est Cr Clr Drug Dosing 21.6 Est GFR ( Amer) 13.2 Est GFR (Non-Af Amer) 11.4 BUN/Creatinine Ratio 15.9 Glucose 131 H POC Glucose POC Glucose (other) Calcium 7.3 L Ionized Calcium 1.01 L 11/30/19 11/30/19 11/30/19 05:07 06:09 07:14 WBC RBC Hgb Hct MCV MCH MCHC RDW Std Deviation RDW Coeff of Cristela Plt Count MPV Sodium Potassium Chloride Carbon Dioxide Anion Gap BUN Creatinine Est Cr Clr Drug Dosing Est GFR ( Amer) Est GFR (Non-Af Amer) BUN/Creatinine Ratio Glucose POC Glucose POC Glucose (other) 135 H 148 H 148 H Calcium Ionized Calcium 11/30/19 11/30/19 11/30/19 08:00 08:54 09:58 WBC RBC Hgb Hct MCV MCH MCHC RDW Std Deviation RDW Coeff of Cristela Plt Count MPV Sodium Potassium Chloride Carbon Dioxide Anion Gap BUN Creatinine Est Cr Clr Drug Dosing Est GFR ( Amer) Est GFR (Non-Af Amer) BUN/Creatinine Ratio Glucose POC Glucose POC Glucose (other) 146 H 150 H 152 H Calcium Ionized Calcium 11/30/19 11/30/19 11/30/19 10:53 13:00 14:48 WBC RBC Hgb Hct MCV MCH MCHC RDW Std Deviation RDW Coeff of Cristela Plt Count MPV Sodium Potassium Chloride Carbon Dioxide Anion Gap BUN Creatinine Est Cr Clr Drug Dosing Est GFR ( Amer) Est GFR (Non-Af Amer) BUN/Creatinine Ratio Glucose POC Glucose 162 H POC Glucose (other) 149 H 146 H Calcium Ionized Calcium 11/30/19 20:19 WBC RBC Hgb Hct MCV MCH MCHC RDW Std Deviation RDW Coeff of Cristela Plt Count MPV Sodium Potassium Chloride Carbon Dioxide Anion Gap BUN Creatinine Est Cr Clr Drug Dosing Est GFR ( Amer) Est GFR (Non-Af Amer) BUN/Creatinine Ratio Glucose POC Glucose 184 H POC Glucose (other) Calcium Ionized Calcium (1) Nausea and vomiting Vomiting Intractability: unspecified Vomiting type: unspecified Qualified Code(s): R11.2 - Nausea with vomiting, unspecified
[2019-11-30 21:50] LABS: BUN Creatinine Ratio 16.8 (10-20); Calcium 7.7 mg/dl (8.5-10.1); Creatinine Clr Calc Pharmacy 22.1 ml/min; Est GFR (African American) 13.4; Est GFR (Non-African American) 11.5; Potassium 3.5 mmol/L (3.5-5.1)
[2019-11-30] MEDS ORDERED: POTASSIUM CHLORIDE 20 MEQ TABCR PO ONE (22:15)
--- NOTE | 2019-11-30 23:50 | Communication Note ---
Date of Service: November 30, 2019 At approximately 2240, I was and informed by the bedside nurse that the patient's was experiencing chest pain 5/10 with radiation to the left arm. Granted the patient is intubated and having sedation administered, which certainly complicates his assessment. Stat troponin was sent which was negative, and EKG was performed and did show ST segment changes in anterior leads which were different from previous EKG studies. However the patient is AV paced and due to the complexity of this case and considering the patient's extensive cardiac history with ischemic cardiomyopathy and EF 20%, I did opt to page interventional cardiology to review the EKGs. Also stat troponin was collected which was negative. During our conversation, I was informed that the patient stated that his chest pain has now subsided. In conclusion to the conversation with Dr. Flores, is likely that EKG changes could be related to stress of intubation with CHF exacerbation, however cannot completely exclude ACS. Will start's medical management with aspirin administration and IV heparin with bolus for now. Will recheck troponin to make sure it is not up trending in 2 hours and monitor closely for hemodynamic change, which would likely warrant need for intervention with cardiac cath. Will hold on sedation for the time being to reassess for more accurate exam as well. I have personally spent 30 minutes of critical care time in the direct management of this patient. This is a life/limb threatening event. This includes time spent evaluating patient, direct bedside care, chart review, placing orders, interpretation of diagnostic studies, discussion with consultants, patient, and family members, as well as other required patient management activities. This time is exclusive of all separately billable procedures, and teaching time and separate from and in addition to any other critical care service time. Thank you for allowing us to participate in the care of this patient. Please refer to my attending physician's documentation for any further recommendations. Coding Level of Care Code Critical Care ea addt'l 30 min
[2019-12-01 04:41] LABS: Hematocrit (blood only) 27.9 % (42-52); Hemoglobin 9.5 g/dL (14.0-18.0); Mean Corpuscular Hemoglobin 28.2 pg (25-34); Mean Corpuscular Hgb Conc 34.1 g/dL (32-36); Mean Corpuscular Volume 82.8 fL (80-100); Platelet Count 204 K/uL (130-400); RDW Coefficient of Variation 15.9 % (11.5-14.5); RDW Standard Deviation 48.2 fL (36.4-46.3); Red Blood Count 3.37 M/uL (4.7-6.1); White Blood Count 9.83 K/uL (4.8-10.8)
[2019-12-01 05:26] LABS: BUN Creatinine Ratio 16.6 (10-20); Calcium 7.3 mg/dl (8.5-10.1); Creatinine Clr Calc Pharmacy 24.8 ml/min; Est GFR (African American) 15.1; Magnesium 2.7 mg/dl (1.8-2.4); Phosphorus 3.3 mg/dl (2.5-4.9); Potassium 3.7 mmol/L (3.5-5.1)
[2019-12-01] MEDS: INSULIN ASPART 100 UNITS/ML 3 ML PEN SC SCH ×7 (05:31→23:44)
[2019-12-01] MEDS: SODIUM BICARBONATE IV SCH ×2 (05:54→19:50)
[2019-12-01] MEDS: [UNRECOGNIZED DRUG - OTHER] IV SCH ×2 (05:54→19:50)
[2019-12-01] MEDS: POTASSIUM CHLORIDE IV SCH ×2 (05:54→19:50)
[2019-12-01] MEDS ORDERED: POTASSIUM CHLORIDE 20 MEQ TABCR PO STA (06:11)
[2019-12-01] MEDS: FLUCONAZOLE 100 MG TAB PO SCH (07:54)
[2019-12-01] MEDS: PANTOprazole 40 MG TAB PO SCH ×2 (07:54→19:52)
[2019-12-01] MEDS: ATORVASTATIN 40 MG TAB PO SCH (07:54)
[2019-12-01] MEDS: SUCRALFATE 1 GM/10 ML UDC PO SCH ×4 (07:54→19:51)
[2019-12-01] MEDS: HEPARIN SOD 5,000 UNIT/0.5 ML VIAL SC SCH ×3 (07:54→19:51)
[2019-12-01] MEDS: INSULIN GLARGINE SOLOSTAR 100 UNITS/ML 3 ML PEN SC SCH ×2 (08:22→20:08)
--- NOTE | 2019-12-01 08:23 | Nephrology Progress Note ---
Date of Service December 01, 2019 Assessment & Plan (1) TITA (acute kidney injury): nonoliguric TITA w/ baseline creatinine 1.2 as of July 2019. likely multifactorial ATN>> he has septic shock and MSSA bacteremia w/ splenic infarcts/septic emboli from diabetic foot ulcer; he was already in renal failure on arrival and then needed 2 IV contrast dye loads for CT scan on admission and L heart cath November 27; he had poor po intake for several days prior to and after presentation and was on medications that can worsen renal failure (sacubitril/valsartan, canagliflozin particularly). Even before septic shock developed his urine was exceptionally concentrated showing dehydration; repeat urinalysis remarkable for ongoing significantly concentrated urine,ketonuria, ongoing microhematuria and proteinuria, quantified at 800 mg daily on spot ratio. He had saline for several hours after cardiac cath 11/27 per protocol. Creatinine peaked at 5.4 on 11/28 and now downtrending to 4.6 today; UOP has picked up dramatically > post ATN diuresis >> Remains on room air and still does not examine as volume overloaded; renal function plateaued in the low fives creatinine and past 24 hours not oliguric; electrolyte abnormalities persist but are generally acceptable and stable with resuscitation and repletion: No indication for dialysis today and if he continues to improve will not need this admission -Continue to hold Entresto -asked pharmacy to dose adjust fluconazole for his degree of renal dysfunction -started on diet > will see how he tolerates (has been very symptomatic w/ po) (2) MSSA bacteremia: now on daptomycin and Zosyn; 4/4 bottles on 11/25 +; TTE w/o vegetation or new WMA; suspect splenic infarcts are septic emboli -f/u repeat cultures: No growth to date still -defer to primary service to eval source > favor infected toe; no recent dental infections/procedures; also has screws in L shoulder after rotator cuff repair and ICD wires (3) Septic shock: still on low dose pressors; BP still soft but acceptable (4) Electrolyte and fluid disorder: hypokalemia improving, borderline but basically improved hypocalcemia, improving bicarbonate on bicarbonate drip until this a.m. w/ normal lactate. mag ok. mild hyperchloremia on non glucose based fluids but this is acceptable tradeoff to keep better BG control -for now continue potassium rich IV fluids: 2 NS w/ 75 mEq/L sodium bicarb and W/ 30 mEq/L K at 80 mL/hr and reassess fluid composition frequently -check bmp often and adjust fluids as indicated > next one ordered for 1600 Admission and Anticipated Discharge Date Admission Date: November 26, 2019 Subjective tolerating po now; still needs very small dose levo to maintain pressures. feels somewhat better. UOP markedly improved Review of Systems Review of Systems: All systems reviewed & are unremarkable except as noted in HPI & below Physical Exam Constitutional: well developed, well nourished and + obese; no acute distress Eyes: EOM intact bilaterally ENMT: Ears: no external ear abnormality Nose: no external nose abnormality Mouth: + dry oral mucous membranes Neck: no nuchal rigidity Respiratory: normal respiratory effort and + tachypneic; no respiratory distress, no labored breathing and no cough Auscultation: + diminished lung sounds and + rhonchi Cardiovascular: Rate/Rhythm: regular rhythm and + tachycardic Extremities: no edema Gastrointestinal (Abdomen): Inspection/Auscultation: + abdomen distended and normal bowel sounds (Or slightly diminished) Percussion/Palpation: + abdomen tender (Diffusely tender), + guarding and abdomen soft Musculoskeletal: no cyanosis or clubbing, extremities motor strength 5/5 Skin: no rashes, warm and dry Psychiatric: A+Ox3, euthymic affect Results & Data ([facility]) Vital Signs (Past 12 Hours) Vital Signs Temp Pulse Resp BP Pulse Ox 12/01/19 05:20 108 H 18 101/66 93 12/01/19 05:15 108 H 20 92 12/01/19 05:00 100 H 19 12/01/19 04:50 101 H 24 101/65 95 12/01/19 04:45 106 H 24 95 12/01/19 04:30 101 H 23 93 12/01/19 04:20 109 H 28 H 103/63 94 12/01/19 04:15 36.6 C 105 H 21 94 12/01/19 04:00 104 H 24 95 12/01/19 03:50 101 H 2 L 106/58 L 94 12/01/19 03:45 107 H 8 L 97 12/01/19 03:30 106 H 12 95 12/01/19 03:21 108 H 32 H 98/53 L 92 12/01/19 03:15 111 H 24 94 12/01/19 03:00 113 H 24 94 12/01/19 02:50 103 H 23 113/67 95 12/01/19 02:45 114 H 18 95 12/01/19 02:30 102 H 25 H 95 12/01/19 02:20 98 H 25 H 108/64 94 12/01/19 02:15 102 H 25 H 94 12/01/19 02:00 104 H 25 H 89 L 12/01/19 01:50 105 H 24 107/69 94 12/01/19 01:45 101 H 21 95 12/01/19 01:30 106 H 24 96 12/01/19 01:20 105 H 21 95/65 L 97 12/01/19 01:15 109 H 23 96 12/01/19 01:00 110 H 23 94 12/01/19 00:56 107 H 23 86/65 L 96 12/01/19 00:50 108 H 23 86/65 L 96 12/01/19 00:45 108 H 24 95 12/01/19 00:30 107 H 22 97 12/01/19 00:15 102 H 24 94 12/01/19 00:12 110 H 18 132/98 97 12/01/19 00:00 36.7 C 100 H 27 H 96 11/30/19 23:58 106 H 27 H 110/76 96 11/30/19 23:45 106 H 24 96 11/30/19 23:30 105 H 24 98 11/30/19 23:28 100 H 26 H 110/90 95 11/30/19 23:15 106 H 22 98 11/30/19 23:00 94 H 20 96 20 22:58 105 H 25 H 120/67 100 0520 22:45 101 H 19 99 0522/20 22:30 102 H 27 H 98 0520 22:28 96 H 18 105/68 99 0520 22:15 100 H 25 H 98 0520 22:00 96 H 23 100 05 21:58 96 H 23 111/66 100 0520 21:45 94 H 18 99 05 21:30 100 H 19 99 0520 21:28 108 H 20 114/65 99 05 20:40 107 H 23 80/61 L 96 11/30/19 20:30 110 H 22 93 Laboratory Results 12/01/19 04:18 12/01/19 04:18
--- NOTE | 2019-12-01 10:04 | Pharmacy Report ---
Pharmacy Glycemic Short Note 2 - Date of Service December 01, 2019 - Glycemic Short BSG Results (Last 24 hours): 11/30/19 11/30/19 11/30/19 08:54 09:58 10:53 Glucose POC Glucose POC Glucose (other) 150 H 152 H 149 H 11/30/19 11/30/19 11/30/19 13:00 14:48 20:19 Glucose POC Glucose 162 H 184 H POC Glucose (other) 146 H 11/30/19 11/30/19 12/01/19 21:04 23:48 04:18 Glucose 200 H 182 H POC Glucose 180 H POC Glucose (other) 12/01/19 12/01/19 05:35 06:56 Glucose POC Glucose 194 H 196 H POC Glucose (other) Outpatient Anti-diabetic Regimen: * Lantus 20 units SC HS * Metformin * Dulaglutide * Canagliflozin * A1c = 7.8 % on 11/27/19 ASSESSMENT: * 59 yo M with sepsis/MSSA bacteremia 2nd osteomyelitis complicated by splenic infarct with new onset chest pain and wide-complex tachyarrhythmia prompting labor relations officer evaluation on 11/27 * Bennett received 38 units of SQ insulin yesterday which was overlapped with IV insulin infusion due to severe hyperglycemia. IV insulin infusion was discontinued 11/29 around 1600. Acceptable BSG control s/p transition off IV infusion. * Fasting BSG of 194 mg/dL is above goal. He received 35 units of Lantus yeste rday. Will increase basal insulin scale. * Anticipate needs of ~ 80 units of insulin per day PLAN FOR INPATIENT GLYCEMIC CONTROL: * Continue to hold outpatient oral diabetes medications * Basal insulin * Lantus 20 units this AM, then per scale BID depending on BSG: * 15 for BSG <120 * 20 for BSG 120-180 * 25 for BSG > 180 * Bolus insulin * Novolog q4h * Goal range: 120-160 mg/dL * Correction factor: 20 mg/dL/unit * Carb ratio: 6 g CHO/unit
--- NOTE | 2019-12-01 10:19 | Critical Care Progress Note ---
Date of Service December 01, 2019 Assessment & Plan (1) Admitted to intensive care unit: Reason Critically Ill: 59-year-old male presenting with sepsis with septic shock with new onset chest pain and concerning wide-complex tachyarrhythmia requiring close hemodynamic monitoring and further intervention. PLAN: Neuro: NEURO -CAM ICU: Negative Resp: Adequate oxygen saturation on room air CV: Chest pain -Possibly contributed by duodenitis wide-complex tachycardia: -Possible pacer spike causing artifact not true ventricular tachycardia Hypotension -Decreasing vasoactive medication requirement at this time Fluids/Renal: Acute kidney injury: Electrolytes stabilizing -Discussed with nephrology -Gentle hydration -Advance diet as tolerated ID: Sepsis with septic shock -Requiring vasoactive medication: Requirements decreasing -Via arterial line patient appears he needs atrial kick to maintain adequate perfusion pressure -De-escalated to single agent MSSA bacteremia -Repeat blood culture showed no growth to date GI/Nutrition: -Known duodenitis -PPI twice daily x8 weeks per GI -Sucralfate -Empiric Diflucan for 14 days per GI -Advance diet as tolerated Heme: Splenic infarct -Question infectious origin versus thromboembolic disease DVT prophylaxis: Heparin 3 times daily -heparin locks in the dialysis catheter Endocrine: ICU hyperglycemia protocol Poorly controlled diabetes type 2 -Random cortisol adequate Vascular access: Temporary dialysis catheter with vascular access placed into left femoral vein on 11/29/2019 -Femoral vein chosen over internal jugular is to allow access for any need for EP -Left radial arterial line Code Status: Full Disposition: ICU (2) Chest pain: (3) Wide-complex tachycardia: (4) Sepsis: (5) Duodenitis: (6) Heart failure: (7) Cardiomyopathy: (8) Obesity: (9) Renal insufficiency: (10) Ulcer of left foot due to type 2 diabetes mellitus: (11) TITA (acute kidney injury): (12) Presence of biventricular implantable cardioverter-defibrillator (ICD): (13) Splenic infarct: Admission and Anticipated Discharge Date Admission Date: November 26, 2019 Subjective Decreasing vasoactive medication requirement. Feels improved compared to yesterday, improving chest pain, no shortness of breath. Review of Systems Review of Systems: As per HPI Physical Exam Physical Exam: General: Alert. nontoxic. Skin: Warm, dry, Head: Atraumatic Ears, nose, mouth and throat: airway patent Cardiovascular: Normal peripheral perfusion Respiratory: no respiratory distress Gastrointestinal: Non distended Musculoskeletal: No deformity Results & Data Results & Data ([facility]) Vital Signs (Past 12 Hours) Vital Signs Temp Pulse Resp BP Pulse Ox 12/01/19 08:50 111 H 22 83/58 L 12/01/19 08:45 112 H 22 12/01/19 08:30 114 H 22 94 12/01/19 08:20 110 H 24 96/69 L 93 12/01/19 08:15 110 H 23 93 12/01/19 08:00 116 H 21 94 12/01/19 07:50 115 H 20 100/78 95 12/01/19 07:45 109 H 16 95 12/01/19 07:30 105 H 20 92 12/01/19 07:20 107 H 23 100/68 93 12/01/19 07:15 112 H 21 93 12/01/19 07:00 105 H 24 93 12/01/19 05:20 108 H 18 101/66 93 12/01/19 05:15 108 H 20 92 12/01/19 05:00 100 H 19 12/01/19 04:50 101 H 24 101/65 95 12/01/19 04:45 106 H 24 95 12/01/19 04:30 101 H 23 93 12/01/19 04:20 109 H 28 H 103/63 94 12/01/19 04:15 36.6 C 105 H 21 94 12/01/19 04:00 104 H 24 95 12/01/19 03:50 101 H 2 L 106/58 L 94 12/01/19 03:45 107 H 8 L 97 12/01/19 03:30 106 H 12 95 12/01/19 03:21 108 H 32 H 98/53 L 92 12/01/19 03:15 111 H 24 94 12/01/19 03:00 113 H 24 94 12/01/19 02:50 103 H 23 113/67 95 12/01/19 02:45 114 H 18 95 12/01/19 02:30 102 H 25 H 95 12/01/19 02:20 98 H 25 H 108/64 94 12/01/19 02:15 102 H 25 H 94 12/01/19 02:00 104 H 25 H 89 L 12/01/19 01:50 105 H 24 107/69 94 12/01/19 01:45 101 H 21 95 12/01/19 01:30 106 H 24 96 12/01/19 01:20 105 H 21 95/65 L 97 12/01/19 01:15 109 H 23 96 12/01/19 01:00 110 H 23 94 12/01/19 00:56 107 H 23 86/65 L 96 12/01/19 00:50 108 H 23 86/65 L 96 12/01/19 00:45 108 H 24 95 12/01/19 00:30 107 H 22 97 12/01/19 00:15 102 H 24 94 12/01/19 00:12 110 H 18 132/98 97 12/01/19 00:00 36.7 C 100 H 27 H 96 11/30/19 23:58 106 H 27 H 110/76 96 11/30/19 23:45 106 H 24 96 11/30/19 23:30 105 H 24 98 11/30/19 23:28 100 H 26 H 110/90 95 11/30/19 23:15 106 H 22 98 11/30/19 23:00 94 H 20 96 11/30/19 22:58 105 H 25 H 120/67 100 11/30/19 22:45 101 H 19 99 11/30/19 22:30 102 H 27 H 98 11/30/19 22:28 96 H 18 105/68 99 Coding Level of Care Code 71196 Subseq Hosp Care Lvl 3 Diagnoses Admitted to intensive care unit Z78.9 Chest pain R07.9 Wide-complex tachycardia I47.2 Sepsis A41.9 Duodenitis K29.80 Heart failure I50.9 Cardiomyopathy I42.9 Obesity E66.9 Renal insufficiency N28.9 Ulcer of left foot due to type 2 diabetes mellitus E11.621; L97.529 TITA (acute kidney injury) N17.9 Presence of biventricular implantable cardioverter-defibrillator (ICD) Z95.810 Splenic infarct D73.5
[2019-12-01] MEDS: CEFAZOLIN 1000MG 1,000 MG/7.5 ML SYR IV SCH ×2 (11:42→23:47)
--- NOTE | 2019-12-01 12:15 | Electrocardiogram Report ---
Test Reason : Blood Pressure : / mmHG Vent. Rate : 115 BPM Atrial Rate : 115 BPM P-R Int : 000 ms QRS Dur : 156 ms QT Int : 344 ms P-R-T Axes : 000 080 -81 degrees QTc Int : 475 ms Atrial fibrillation (device interrogated) Bi V pacing Fusion beats PVC's Abnormal ECG When compared with ECG of 30-NOV-2019 08:43, No significant change was found Confirmed by Connor Schumacher ([id number] on 12/01/2019 12:15:44 PM Referred By: REFERRED SELF Confirmed By:Connor Schumacher
--- NOTE | 2019-12-01 13:53 | Cardiology Progress Note ---
Date of Service December 01, 2019 Assessment & Plan (1) NICM (nonischemic cardiomyopathy): (2) Atrial fibrillation: (3) TITA (acute kidney injury): (4) MSSA bacteremia: (5) Sepsis associated hypotension: (6) Biventricular automatic implantable cardioverter defibrillator in situ: Patient on a minimal dose of norepinephrine at the time of my assessment. Per discussion with his nurse, he is feeling much better today. Ventricular rates are mildly elevated, but this does not seem to be bothering the patient. Echocardiogram performed several days ago revealed LVEF of 40%. Remains on sodium bicarb infusion at 80 mL an hour creatinine marginally improved. Infection source is felt to be due to diabetic foot ulcer of the left second toe and osteomyelitis. EGD performed 11/27/2019 revealed moderate dialysis of the esophagus. Duodenitis noted with 2 clean-based ulcers. He remains off of anticoagulation due to the concerns of duodenitis. He is not on a beta-avinash due to relative hypotension. Blood cultures positive for methicillin sensitive staph aureus on 11/25, repeat cultures negative thus far. Biventricular pacemaker defibrillator interrogated on 11/30/2019 with normal findings, onset of atrial fibrillation occurred 11/28/2019. Change atorvastatin to 40 mg daily given administration of fluconazole. Subjective Patient seen in cardiology follow-up having previously been followed by Dr. Reed during this hospital stay. At present he states he is comfortable. He denies chest pain, palpitations, denies subjective fevers or chills, denies any abdominal discomfort. Telemetry reveals atrial fibrillation with mildly elevated ventricular rates in the range of 110 bpm at the time of my assessment. Physical Exam Physical Exam: Temp Pulse Resp BP Pulse Ox 36.6 C 120 H 25 H 127/51 L 92 12/01/19 04:15 12/01/19 12:30 12/01/19 12:30 12/01/19 12:21 12/01/19 12:30 Constitutional: no acute distress Respiratory: normal respiratory effort, lungs clear to auscultation Cardiovascular: Rate/Rhythm: + tachycardic and + irregularly irregular Heart Sounds: no murmur Vessels: + JVD Extremities: + edema (Trace bilateral edema) Gastrointestinal (Abdomen): normal bowel sounds, soft, nontender, no hepatosplenomegaly Neurologic: PERRL, EOMI, accommodation nl, no face palsy, no dysarthria Results & Data Laboratory Results CBC 12/01/19 Range/Units 04:18 WBC 9.83 (4.8-10.8) K/uL RBC 3.37 L (4.7-6.1) M/uL Hgb 9.5 L (14.0-18.0) g/dL Hct 27.9 L (42-52) % Plt Count 204 (130-400) K/uL Comprehensive Metabolic Panel 11/30/19 12/01/19 Range/Units 21:04 04:18 Sodium 135 L 139 (136-145) mmol/L Potassium 3.5 3.7 (3.5-5.1) mmol/L Chloride 105 108 H (98-107) mmol/L Carbon Dioxide 18 L 19 L (21-32) mmol/L BUN 86 H 77 H (7-18) mg/dl Creatinine 5.13 H* 4.64 H* D (0.6-1.4) mg/dl Glucose 200 H 182 H (70-99) mg/dl Calcium 7.7 L 7.3 L (8.5-10.1) mg/dl Intake and Output 11/30/19 12/01/19 12/01/19 22:59 06:59 14:59 Intake Total 30.344 / 9874.259 4329 / 8237.449 2199.013 / 1499.013 Output Total 700 / 2625 1250 / 2625 1202 / 1202 Balance -669.656 / -1088.657 -160 / -1088.657 297.013 / 297.013 Intake: IV 30.344 / 2020.428 7601 / 1436.343 99.013 / 99.013 NovoLIN R 250 UNITS In Nss 247. 1.83 / 19.791 5 ml @ 2.3 UNITS/HR 2.3 mls/hr IV .Q24H YULI Rx#:[id number] Levophed Inj 8 mg In D5w 500 ml 28.514 / 206.552 99.013 / 99.013 @ 0 MCG/KG/MIN IV .Q0M YULI Rx# :[id number] KCl 30 Meq Sodium Bicarbonate 8 1090 / 1090 .4% 75 Meq In 1/2 Nss 1,000 ml @ 80 mls/hr IV .[id number] YULI Rx# :[id number] Oral 1400 / 1400 Output: Urine/Stool Mix 75 / 75 Urine Amount (Catheter) / 2625 1250 / 2625 1125 / 1125 Bauer/Indwelling / 2625 1250 / 2625 1125 / 1125 # Bowel Movements 2 / 2 Other: Weight 126.5 kg
--- NOTE | 2019-12-01 15:38 | Hospitalist Progress Note ---
Date of Service December 01, 2019 Assessment & Plan (1) Septic shock: secondary to MSSA bacteremia, Left toe culprit nonhealing wound due to DM type 2, with osteomyelitis Patient is a 59-year-old male with history of nonischemic cardiomyopathy, status post AICD pacemaker placement, diabetes type 2, hypertension, presented with nausea vomiting abdominal pain. --off levophed at noon time Afebrile Leukocytosis improving -- clinically looks better today -- repeat blood cultures: Negative so far --Transitioned from Dapto and Zosyn to cefazolin IV -- Wound Care Consulted-does not need I&D at this point, may need orthopedic evaluation for possible surgical intervention when stable (2) Splenic infarct: Likely secondary to above (3) TITA (acute kidney injury): Likely Secondary to Vancomycin, Septic Shock Renal ultrasound did not show any renal artery obstruction and good flow in the veins Vancomycin discontinued management of Sepsis as per above Instrument Technician Apprentice consulted --Bicarb drip continued crea further improved from 5.1 --> 4.6 urine output increasing -- continue to closely monitor daily (4) Duodenitis: Noted in CAT scan s/p EGD Likely the cause for nausea and vomiting continue p.o. Protonix and sulfate (5) Nausea and vomiting: secondary to above Resolved (6) NICM (nonischemic cardiomyopathy): (7) CHF (congestive heart failure): Chronic Systolic Congestive heart failure and s/p ICD placement in July 2019. Echo completed last week as an outpatient. Seems unlikely to be source of infarcts. EKG completed in ED no new changes. No evidence of ACS and no evidence of acute CHF -- euvolemic Pacemaker interrogation: Appropriate pacemaker function as per Dr. Reed (8) DM (diabetes mellitus): off insulin drip a1c 7.8 (9) HTN (hypertension): hold Sacubitril- Valsartan in light of hypotension (10) DVT prophylaxis: SCDs heparin TID Disposition: Pending Case discussed with patient's Sister Miryam yesterday evening She was inquiring about possible transfer of patient to tertiary care level of care, requested finisher polisher TREASURE to discuss with patient's sister Again call patient's sister today, case discussed in detail and at length All questions were answered She is understanding, agreeable, comfortable with plan of care Admission and Anticipated Discharge Date Admission Date: November 26, 2019 Subjective ff up for sepsis, bacteremia, acute renal failure seen resting in bed, watching TV, comfortable states he feels improved today less weak, appetite is better denies abdominal pain with food intake no chest pain, dyspnea, palpitations, dizziness no other symptom Review of Systems Review of Systems: All systems reviewed & are unremarkable except as noted in HPI & below Physical Exam Physical Exam: General- oriented x 3, not in distress, speaks in sentences with no effort or accessory muscle use Eyes- anicteric Neck- no JVD Lungs- clear breath sounds bilaterally, no rales/wheezes Heart- mild tachycardia, irregularly, irregular rhythm; no murmurs Abdomen- normal bowel sounds, nondistended, soft, nontender Extremities- no pretibial edema, no calf tenderness Neuro- alert, oriented x 3; no gross focal neurologic deficits Skin- warm & dry Results & Data Results & Data ([facility]) Vital Signs (Past 12 Hours) Vital Signs Temp Pulse Resp BP Pulse Ox 12/01/19 12:30 120 H 25 H 92 12/01/19 12:21 127 H 22 127/51 L 94 12/01/19 12:00 120 H 21 93 12/01/19 11:50 123 H 22 134/57 L 93 12/01/19 11:38 125 H 25 H 112/77 94 12/01/19 11:30 120 H 19 92 12/01/19 11:20 116 H 20 100/57 L 90 12/01/19 11:00 111 H 18 91 12/01/19 10:51 109 H 18 101/57 L 93 12/01/19 10:30 118 H 17 94 12/01/19 10:21 116 H 20 97/68 L 92 12/01/19 10:00 110 H 20 94 12/01/19 09:51 118 H 25 H 92/64 L 95 12/01/19 09:30 125 H 21 93 12/01/19 09:20 107 H 23 100/64 93 12/01/19 09:00 110 H 21 12/01/19 08:51 115 H 25 H 12/01/19 08:50 111 H 22 83/58 L 12/01/19 08:45 112 H 22 12/01/19 08:30 114 H 22 94 12/01/19 08:20 110 H 24 96/69 L 93 12/01/19 08:15 110 H 23 93 12/01/19 08:00 116 H 21 94 12/01/19 07:50 115 H 20 100/78 95 12/01/19 07:45 109 H 16 95 12/01/19 07:30 105 H 20 92 12/01/19 07:20 107 H 23 100/68 93 12/01/19 07:15 112 H 21 93 12/01/19 07:00 105 H 24 93 12/01/19 05:20 108 H 18 101/66 93 12/01/19 05:15 108 H 20 92 12/01/19 05:00 100 H 19 12/01/19 04:50 101 H 24 101/65 95 12/01/19 04:45 106 H 24 95 12/01/19 04:30 101 H 23 93 12/01/19 04:20 109 H 28 H 103/63 94 12/01/19 04:15 36.6 C 105 H 21 94 12/01/19 04:00 104 H 24 95 12/01/19 03:50 101 H 2 L 106/58 L 94 12/01/19 03:45 107 H 8 L 97 (1) Nausea and vomiting Vomiting Intractability: unspecified Vomiting type: unspecified Qualified Code(s): R11.2 - Nausea with vomiting, unspecified
[2019-12-01] MEDS ORDERED: CEFAZOLIN 1000MG 1,000 MG/7.5 ML SYR IV SCH (16:00)
[2019-12-01 16:36] LABS: BUN Creatinine Ratio 16.6 (10-20); Calcium 7.3 mg/dl (8.5-10.1); Creatinine Clr Calc Pharmacy 26.6 ml/min; Est GFR (Non-African American) 14.6; Potassium 3.7 mmol/L (3.5-5.1)
[2019-12-01] MEDS ORDERED: POTASSIUM CHLORIDE 20 MEQ TABCR PO ONE (18:00)
[2019-12-02] MEDS: INSULIN ASPART 100 UNITS/ML 3 ML PEN SC SCH ×5 (04:02→19:53)
[2019-12-02 04:25] LABS: Hematocrit (blood only) 28.1 % (42-52); Hemoglobin 9.5 g/dL (14.0-18.0); Mean Corpuscular Hemoglobin 28.5 pg (25-34); Mean Corpuscular Hgb Conc 33.8 g/dL (32-36); Mean Corpuscular Volume 84.4 fL (80-100); Mean Platelet Volume 9.3 fL (7.4-10.4); Platelet Count 233 K/uL (130-400); RDW Coefficient of Variation 15.9 % (11.5-14.5); RDW Standard Deviation 49.2 fL (36.4-46.3); Red Blood Count 3.33 M/uL (4.7-6.1); White Blood Count 9.56 K/uL (4.8-10.8)
[2019-12-02 04:51] LABS: BUN Creatinine Ratio 18.7 (10-20); Calcium 7.3 mg/dl (8.5-10.1); Magnesium 2.5 mg/dl (1.8-2.4); Potassium 3.9 mmol/L (3.5-5.1)
[2019-12-02 04:57] LABS: Phosphorus 2.5 mg/dl (2.5-4.9)
[2019-12-02] MEDS ORDERED: POTASSIUM CHLORIDE 10 MEQ TABCR PO STA (05:16)
[2019-12-02] MEDS: SUCRALFATE 1 GM/10 ML UDC PO SCH ×4 (07:49→19:54)
[2019-12-02] MEDS: ATORVASTATIN 40 MG TAB PO SCH (07:50)
[2019-12-02] MEDS: FLUCONAZOLE 100 MG TAB PO SCH (07:50)
[2019-12-02] MEDS: PANTOprazole 40 MG TAB PO SCH ×2 (07:50→19:55)
[2019-12-02] MEDS: HEPARIN SOD 5,000 UNIT/0.5 ML VIAL SC SCH (07:51)
[2019-12-02] MEDS: INSULIN GLARGINE SOLOSTAR 100 UNITS/ML 3 ML PEN SC SCH ×2 (07:51→19:54)
--- NOTE | 2019-12-02 09:20 | Pharmacy Report ---
Pharmacy Glycemic Short Note 2 - Date of Service December 02, 2019 - Glycemic Short BSG Results (Last 24 hours): 12/01/19 12/01/19 12/01/19 11:10 15:37 15:52 Glucose 164 H POC Glucose 166 H 159 H 12/01/19 12/01/19 12/02/19 20:03 23:42 04:01 Glucose POC Glucose 205 H 191 H 176 H 12/02/19 12/02/19 04:13 07:42 Glucose 187 H POC Glucose 202 H Outpatient Anti-diabetic Regimen: * Lantus 20 units SC HS * Metformin * Dulaglutide * Canagliflozin * A1c = 7.8 % on 11/27/19 ASSESSMENT: 12/01: * Bennett received 75 units of SQ insulin yesterday: * 45 units of basal * 30 units of bolus * BSGs ranged from 159-205 mg/dL * Patient titrated off norepinephrine drip yesterday around 1200. Remains on cefazolin for MSSA bacteremia/osteo. * Fasting BSG remains above goal despite a 28% increase in basal insulin on 11/30. Will continue to titrate. * Post prandial BSGs are mildly elevated. Will tighten Novolog correctional insulin. 11/30: * 59 yo M with sepsis/MSSA bacteremia 2nd osteomyelitis complicated by splenic infarct with new onset chest pain and wide-complex tachyarrhythmia prompting sanitation laborer evaluation on 11/27 * Bennett received 38 units of SQ insulin yesterday which was overlapped with IV insulin infusion due to severe hyperglycemia. IV insulin infusion was discontinued 11/29 around 1600. Acceptable BSG control s/p transition off IV infusion. * Fasting BSG of 194 mg/dL is above goal. He received 35 units of Lantus yesterday. Will increase basal insulin scale. * Anticipate needs of ~ 80 units of insulin per day PLAN FOR INPATIENT GLYCEMIC CONTROL: * Continue to hold outpatient oral diabetes medications * Basal insulin * Lantus per scale BID depending on BSG: * 15 for BSG < 120 * 20 for BSG 120-180 * 25 for BSG > 180 * Bolus insulin - tighten CF * Novolog q4h * Goal range: 120-160 mg/dL * Correction factor: 15 mg/dL/unit * Carb ratio: 1 unit for every 6 g CHO
--- NOTE | 2019-12-02 09:28 | Cardiology Progress Note ---
Date of Service December 02, 2019 Assessment & Plan (1) NICM (nonischemic cardiomyopathy): (2) Atrial fibrillation: (3) TITA (acute kidney injury): (4) MSSA bacteremia: (5) Sepsis associated hypotension: (6) Biventricular automatic implantable cardioverter defibrillator in situ: Pt has been in AF since 11/28/19. EGD with Duodenitis. Age undetermined splenic infarcts (septic vs thrombus from AF?). Now off of norepinephrine >24 hrs. SBP 120's. Creatinies continues to improve and > 3 L urine output in last 24 hrs. Need to discuss timing of starting anticoagulation with primary service and GI. Continue SQ heparin for DVT prophylaxis. Subjective Davide states he is feeling well. Nausea that prompted ED presentation has resolved. Denies Fevers or chills. Denies SOB or palpitations. Physical Exam Physical Exam: Temp Pulse Resp BP Pulse Ox 37.1 C 119 H 18 131/79 95 12/02/19 07:51 12/02/19 08:51 12/02/19 08:51 12/02/19 08:51 12/02/19 08:51 Constitutional: WD/WN, vitals as above Respiratory: no labored breathing and no cough Auscultation: + diminished lung sounds (mildly decreased BS at bases, no rales Rhonchi or wheezing) Cardiovascular: Rate/Rhythm: + tachycardic and + irregularly irregular Heart Sounds: no murmur Gastrointestinal (Abdomen): normal bowel sounds, soft, nontender, no hepatosplenomegaly Neurologic: PERRL, EOMI, accommodation nl, no face palsy, no dysarthria Results & Data Vital Signs (Past 12 Hours) Vital Signs Temp Pulse Resp BP Pulse Ox 12/02/19 08:51 119 H 18 131/79 95 12/02/19 08:21 116 H 23 119/78 94 12/02/19 08:00 124 H 23 94 12/02/19 07:51 37.1 C 124 H 24 156/77 H 94 12/02/19 07:21 101 H 21 124/77 92 12/02/19 07:00 103 H 21 93 12/02/19 06:00 114 H 22 94 12/02/19 05:51 115 H 23 121/79 95 12/02/19 05:45 114 H 20 95 12/02/19 05:30 107 H 22 90 12/02/19 05:21 109 H 19 125/78 93 12/02/19 05:15 108 H 24 93 12/02/19 05:00 113 H 21 93 12/02/19 04:51 119 H 17 123/72 93 12/02/19 04:45 110 H 21 91 12/02/19 04:30 108 H 24 92 12/02/19 04:21 114 H 24 117/73 92 12/02/19 04:15 111 H 26 H 92 12/02/19 04:00 36.7 C 119 H 23 90 12/02/19 03:51 117 H 22 123/64 90 12/02/19 03:45 115 H 24 90 12/02/19 03:30 118 H 21 91 12/02/19 03:21 116 H 21 115/71 91 12/02/19 03:15 121 H 24 92 12/02/19 03:00 117 H 25 H 93 12/02/19 02:52 116 H 23 146/117 H 92 12/02/19 02:45 117 H 28 H 93 12/02/19 02:30 114 H 22 94 12/02/19 02:21 114 H 25 H 100/72 94 12/02/19 02:15 112 H 25 H 94 12/02/19 02:00 113 H 26 H 109/76 93 12/02/19 01:51 116 H 18 109/76 94 12/02/19 01:45 111 H 24 93 12/02/19 01:30 114 H 26 H 94 12/02/19 01:21 115 H 28 H 105/81 95 12/02/19 01:15 108 H 18 95 12/02/19 01:00 127 H 18 90 12/02/19 00:50 111 H 21 123/104 H 96 12/02/19 00:45 108 H 22 96 12/02/19 00:30 116 H 25 H 95 12/02/19 00:21 104 H 23 124/68 93 12/02/19 00:15 112 H 31 H 93 12/02/19 00:00 36.6 C 110 H 25 H 95 12/01/19 23:50 116 H 26 H 124/77 93 12/01/19 23:45 112 H 14 92 12/01/19 23:30 113 H 26 H 12/01/19 23:20 93 H 28 H 104/74 12/01/19 23:15 110 H 25 H 96 12/01/19 23:00 106 H 21 94 12/01/19 22:50 114 H 27 H 98/72 L 94 12/01/19 22:45 108 H 25 H 93 12/01/19 22:30 107 H 24 92 12/01/19 22:22 115 H 23 92 12/01/19 22:21 111 H 24 100/72 93 12/01/19 22:15 109 H 20 92 12/01/19 22:00 105 H 25 H 94 12/01/19 21:50 116 H 24 112/77 94 12/01/19 21:45 105 H 26 H 95 12/01/19 21:30 109 H 21 93 Laboratory Results CBC 12/02/19 Range/Units 04:13 WBC 9.56 (4.8-10.8) K/uL RBC 3.33 L (4.7-6.1) M/uL Hgb 9.5 L (14.0-18.0) g/dL Hct 28.1 L (42-52) % Plt Count 233 (130-400) K/uL Comprehensive Metabolic Panel 12/01/19 12/02/19 Range/Units 15:52 04:13 Sodium 140 142 (136-145) mmol/L Potassium 3.7 3.9 (3.5-5.1) mmol/L Chloride 111 H 113 H (98-107) mmol/L Carbon Dioxide 21 19 L (21-32) mmol/L BUN 70 H 63 H (7-18) mg/dl Creatinine 4.21 H D 3.39 H D (0.6-1.4) mg/dl Glucose 164 H 187 H (70-99) mg/dl Calcium 7.3 L 7.3 L (8.5-10.1) mg/dl Intake and Output 12/01/19 12/02/19 12/02/19 22:59 06:59 14:59 Intake Total 1640 / 3139.013 Output Total 2000 700 / 3903 0 / 0 Balance -361 / -763.987 -700 / -763.987 0 / 0 Intake: IV 1090 / 1189.013 KCl 30 Meq Sodium Bicarbonate 8 1090 / 1090 .4% 75 Meq In 1/2 Nss 1,000 ml @ 80 mls/hr IV .[id number] [facility] Rx# :[id number] Oral 550 / 1950 Output: Urine 0 / 0 Urine/Stool Mix 200 / 275 Other 300 / 300 Urine Amount (Catheter) 1500 / 3325 700 / 3325 Bauer/Indwelling 1500 / 3325 700 / 3325 # Bowel Movements 1 / 3 0 / 0 Other: Weight 130.2 kg Medications Administered Current Inpatient Medications Acetaminophen (Tylenol) 650 mg PO Q4H PRN PRN Reason: Pain or Fever Stop: 12/26/19 16:14 Al Hydrox/Mg Hydrox/Simethicone (Maalox) 15 ml PO Q4H PRN PRN Reason: Dyspepsia Stop: 12/26/19 16:14 Atorvastatin Calcium (Lipitor) 40 mg PO [facility] Stop: 01/01/20 08:59 Last Admin: 12/02/19 07:50 Dose: 40 mg Documented by: Dextrose (Dextrose 50%) 25 - 50 ml IV UD PRN; Protocol PRN Reason: Hypoglycemia Protocol Stop: 12/26/19 16:14 Fluconazole (Diflucan) 100 mg PO [facility]; Protocol Stop: 12/07/19 08:59 Last Admin: 12/02/19 07:50 Dose: 100 mg Documented by: Glucagon (Glucagen) 1 mg SQ UD PRN; Protocol PRN Reason: Hypoglycemia Protocol Stop: 12/26/19 16:14 Glucose (Dex4 Glucose) 4 - 8 tabs PO UD PRN; Protocol PRN Reason: Hypoglycemia Protocol Stop: 12/26/19 16:14 Glucose (Glucose 40%) 15 - 30 gm PO UD PRN; Protocol PRN Reason: Hypoglycemia Protocol Stop: 12/26/19 16:14 Heparin Sodium (Beef Lung) (Heparin Sod 10 Unit/Ml Flush) 5 ml FLUSH PRN PRN PRN Reason: Flush Stop: 12/29/19 12:58 Last Admin: 11/29/19 13:24 Dose: 5 ml Documented by: Heparin Sodium (Porcine) (Heparin Sodium (Porcine)) 5,000 units SC TID YULI Stop: 12/29/19 13:59 Last Admin: 12/02/19 07:51 Dose: 5,000 units Documented by: Hydromorphone HCl (Dilaudid) 0.5 mg IV Q6 PRN PRN Reason: Severe Pain Stop: 12/10/19 16:14 Last Admin: 11/29/19 16:43 Dose: 0.5 mg Documented by: Norepinephrine Bitartrate 8 mg (/ Dextrose) 508 mls @ 0 mls/hr IV .Q0M YULI; Protocol Stop: 12/28/19 05:29 Last Titration: 12/01/19 10:57 Dose: 0 mcg/kg/min, 0 mls/hr Documented by: Potassium Chloride 30 meq/Sodium Bicarbonate 75 meq/Sodium Chloride 1,090 mls @ 80 mls/hr IV .[id number] YULI Stop: 12/30/19 15:29 Last Admin: 12/01/19 19:50 Dose: 80 mls/hr Documented by: Cefazolin Sodium (Ancef 1000mg) 1,000 mg in 7.5 mls @ 2.5 mls/min IV Q12H YULI; Protocol Stop: 12/15/19 10:59 Last Admin: 12/01/19 23:47 Dose: 2.5 mls/min Documented by: Insulin Aspart (Novolog Flexpen) 0 units SC Q4 YULI; Protocol Stop: 12/30/19 15:59 Last Admin: 12/02/19 08:03 Dose: 6 units Documented by: Insulin Glargine (Lantus Solostar Pen) 0 units SC BID YULI; Protocol Stop: 12/31/19 08:59 Last Admin: 12/02/19 07:51 Dose: 25 units Documented by: Miscellaneous (Carbohydrates For Hypoglycemia) 15 - 30 gm PO UD PRN PRN Reason: Hypoglycemia Protocol Stop: 12/26/19 16:14 Miscellaneous (Pending Order) 1 ea N/A DAILY@1000 YULI Stop: 12/31/19 09:59 Last Admin: 12/01/19 11:42 Dose: 1 ea Documented by: Miscellaneous Information (Consult Glycemic Management Pharmacy) 1 ea N/A UD PRN PRN Reason: Consult Stop: 12/28/19 10:07 Miscellaneous Information (Consult) 1 ea N/A UD PRN PRN Reason: Consult Stop: 12/28/19 18:00 Miscellaneous Information (Pharmacy Consult) 1 ea N/A UD PRN PRN Reason: Consult Stop: 12/30/19 10:38 Ondansetron HCl (Zofran) 4 mg IV Q4H PRN PRN Reason: Nausea Stop: 12/28/19 06:00 Last Admin: 11/29/19 16:43 Dose: 4 mg Documented by: Oxycodone HCl (Roxicodone Immediate Rel) 5 mg PO Q6H PRN PRN Reason: Moderate Pain Stop: 12/10/19 16:49 Last Admin: 11/30/19 11:26 Dose: 5 mg Documented by: Pantoprazole Sodium (Protonix) 40 mg PO BID [facility] Stop: 01/24/20 09:01 Last Admin: 12/02/19 07:50 Dose: 40 mg Documented by: Sucralfate (Carafate) 1 gm PO QID [facility] Stop: 12/27/19 12:59 Last Admin: 12/02/19 07:49 Dose: 1 gm Documented by:
[2019-12-02] MEDS: [UNRECOGNIZED DRUG - OTHER] IV SCH (09:36)
[2019-12-02] MEDS: SODIUM BICARBONATE IV SCH (09:36)
[2019-12-02] MEDS: POTASSIUM CHLORIDE IV SCH (09:36)
[2019-12-02] MEDS ORDERED: Heparin IV Low Dose *NO* Bolus IV SCH (10:08)
[2019-12-02] MEDS: HEPARIN SODIUM/DEXTROSE 25,000 UNITS/500 ML BAG IV SCH (10:44)
--- NOTE | 2019-12-02 11:12 | Nephrology Progress Note ---
Date of Service December 02, 2019 Assessment & Plan (1) TITA (acute kidney injury): nonoliguric TITA w/ baseline creatinine 1.2 as of July 2019 from multifactorial ATN>> he presented with septic shock and MSSA bacteremia w/ splenic infarcts/septic emboli from diabetic foot ulcer; he was already in renal failure on arrival and then needed 2 IV contrast dye loads for CT scan on admission and L heart cath November 27; he had poor po intake for several days prior to and after presentation and was on medications that can worsen renal failure (sacubitril/valsartan, canagliflozin particularly). Even before septic shock developed his urine was exceptionally concentrated showing dehydration; repeat urinalysis remarkable for ongoing significantly concentrated urine,ketonuria, ongoing microhematuria and proteinuria, quantified at 800 mg daily on spot ratio. He had saline for several hours after cardiac cath 11/27 per protocol. Creatinine peaked at 5.4 on 11/28 and now downtrending further to 3.4 today; UOP has picked up dramatically > post ATN diuresis >> Remains on room air and still does not examine as volume overloaded; electrolyte abnormalities persist but are generally acceptable and stable with resuscitation and repletion: No indication for dialysis today and hopefully will not need this admission -Continue to hold Entresto -asked pharmacy to dose adjust fluconazole for his degree of renal dysfunction Within next 24 to 48 hours remove Juancarlos (2) MSSA bacteremia: now on daptomycin and Zosyn; 4/4 bottles on 11/25 +; TTE w/o vegetation or new WMA; suspect splenic infarcts are septic emboli -f/u repeat cultures 11/27: No growth to date still -defer to primary service to eval source > favor infected toe; no recent dental infections/procedures; also has screws in L shoulder after rotator cuff repair and ICD wires (3) Septic shock: still on low dose pressors; BP still soft but acceptable (4) Electrolyte and fluid disorder: hypokalemia improving, borderline but basically stable hypocalcemia (considering November 28 albumin 1.4), improving bicarbonate on bicarbonate drip. mag ok. some worsening hyperchloremia on non glucose based fluids but this is acceptable tradeoff to keep better BG control -for now continue potassium rich IV fluids: 1/2 NS w/ 75 mEq/L sodium bicarb and W/ 30 mEq/L K at 80 mL/hr and reassess fluid composition frequently -check bmp daily now Admission and Anticipated Discharge Date Admission Date: November 26, 2019 Subjective Feeling and doing better. Tolerating p.o. consistently now. Having bowels regularly. No further jags of abdominal pain. No chest pain or palpitations or dyspnea. Review of Systems Review of Systems: All systems reviewed & are unremarkable except as noted in HPI & below Physical Exam Constitutional: well developed, well nourished and + obese; no acute distress On room air, maneuvers readily for exam Eyes: EOM intact bilaterally ENMT: Ears: no external ear abnormality Nose: no external nose abnormality Mouth: + dry oral mucous membranes Neck: no nuchal rigidity Respiratory: normal respiratory effort and + tachypneic; no respiratory distress, no labored breathing and no cough Auscultation: + diminished lung sounds and + rhonchi Cardiovascular: Rate/Rhythm: regular rhythm and + tachycardic Extremities: no edema (Except for 2+ pedal edema) Gastrointestinal (Abdomen): Inspection/Auscultation: + abdomen distended and normal bowel sounds (Or slightly diminished) Percussion/Palpation: + abdomen tender (Diffusely tender), + guarding and abdomen soft Musculoskeletal: no cyanosis or clubbing, extremities motor strength 5/5 Skin: no rashes, warm and dry Neurologic: Moves all extremities, fluent speech, no tremor Psychiatric: A+Ox3, euthymic affect Genitourinary: Bauer with ample urine Results & Data ([facility]) Vital Signs (Past 12 Hours) Vital Signs Temp Pulse Resp BP Pulse Ox 12/02/19 08:51 119 H 18 131/79 95 12/02/19 08:21 116 H 23 119/78 94 12/02/19 08:00 124 H 23 94 12/02/19 07:51 37.1 C 124 H 24 156/77 H 94 12/02/19 07:21 101 H 21 124/77 92 12/02/19 07:00 103 H 21 93 12/02/19 06:00 114 H 22 94 12/02/19 05:51 115 H 23 121/79 95 12/02/19 05:45 114 H 20 95 12/02/19 05:30 107 H 22 90 12/02/19 05:21 109 H 19 125/78 93 12/02/19 05:15 108 H 24 93 12/02/19 05:00 113 H 21 93 12/02/19 04:51 119 H 17 123/72 93 12/02/19 04:45 110 H 21 91 12/02/19 04:30 108 H 24 92 12/02/19 04:21 114 H 24 117/73 92 12/02/19 04:15 111 H 26 H 92 12/02/19 04:00 36.7 C 119 H 23 90 12/02/19 03:51 117 H 22 123/64 90 12/02/19 03:45 115 H 24 90 12/02/19 03:30 118 H 21 91 12/02/19 03:21 116 H 21 115/71 91 12/02/19 03:15 121 H 24 92 12/02/19 03:00 117 H 25 H 93 12/02/19 02:52 116 H 23 146/117 H 92 12/02/19 02:45 117 H 28 H 93 12/02/19 02:30 114 H 22 94 12/02/19 02:21 114 H 25 H 100/72 94 12/02/19 02:15 112 H 25 H 94 12/02/19 02:00 113 H 26 H 109/76 93 12/02/19 01:51 116 H 18 109/76 94 12/02/19 01:45 111 H 24 93 12/02/19 01:30 114 H 26 H 94 12/02/19 01:21 115 H 28 H 105/81 95 12/02/19 01:15 108 H 18 95 12/02/19 01:00 127 H 18 90 12/02/19 00:50 111 H 21 123/104 H 96 12/02/19 00:45 108 H 22 96 12/02/19 00:30 116 H 25 H 95 12/02/19 00:21 104 H 23 124/68 93 12/02/19 00:15 112 H 31 H 93 12/02/19 00:00 36.6 C 110 H 25 H 95 12/01/19 23:50 116 H 26 H 124/77 93 12/01/19 23:45 112 H 14 92 12/01/19 23:30 113 H 26 H 12/01/19 23:20 93 H 28 H 104/74 05 23:15 110 H 25 H 96 Laboratory Results 12/02/19 04:13 05/24/20 04:13
--- NOTE | 2019-12-02 11:20 | Critical Care Progress Note ---
Date of Service December 02, 2019 Assessment & Plan (1) Admitted to intensive care unit: (1) Admitted to intensive care unit: Reason Critically Ill: 59-year-old male presenting with sepsis with septic shock with new onset chest pain and concerning wide-complex tachyarrhythmia requiring close hemodynamic monitoring and further intervention. PLAN: Neuro: NEURO -CAM ICU: Negative Resp: Adequate oxygen saturation on room air CV: Chest pain: Improved/resolved wide-complex tachycardia: Atrial fibrillation -Low dose anticoagulation by cardiology Hypotension: Resolved -We will discontinue advanced vascular access as he has been off vasoactive medication for approximately 24 hours Fluids/Renal: Acute kidney injury: Improving -Reviewed nephrology notes -Fluids per nephrology ID: Sepsis with septic shock: Resolved MSSA bacteremia -Repeat blood culture showed no growth to date -Cefazolin 1 g every 12 -Not exhibiting obvious high risk signs: No obvious infective endocarditis, follow-up cultures negative, no fever, no evidence of metastatic staphylococcal infection after initiation of therapy -Does have indwelling pacemaker -Consider 14 days minimum therapy of IV antibiotics -If toe is presumptive source ideally this should be amputated -Operative timing dependent upon recovery from this event. GI/Nutrition: -Known duodenitis -PPI twice daily x8 weeks per GI -Sucralfate -Empiric Diflucan for 14 days per GI -Advance diet as tolerated Heme: Splenic infarct -Question infectious origin versus thromboembolic disease DVT prophylaxis: Heparin 3 times daily -heparin locks in the dialysis catheter Endocrine: ICU hyperglycemia protocol Poorly controlled diabetes type 2 -Random cortisol adequate Vascular access: Given kidney recovery and no need for vasoactive medication will discontinue femoral line today -Peripheral IVs Code Status: Full Disposition: Stable for downgrade out of ICU presumptively to telemetry status (2) Chest pain: (3) Wide-complex tachycardia: (4) Sepsis: (5) Duodenitis: (6) Heart failure: (7) Cardiomyopathy: (8) Obesity: (9) Renal insufficiency: (10) Ulcer of left foot due to type 2 diabetes mellitus: (11) TITA (acute kidney injury): (12) Presence of biventricular implantable cardioverter-defibrillator (ICD): (13) Splenic infarct: Admission and Anticipated Discharge Date Admission Date: November 26, 2019 Subjective No overnight events Physical Exam Physical Exam: General: Alert. nontoxic. Skin: Warm, dry, Head: Atraumatic Ears, nose, mouth and throat: airway patent Cardiovascular: Normal peripheral perfusion Respiratory: no respiratory distress Gastrointestinal: Non distended Musculoskeletal: Left second toe was swollen, painted with iodine, no obvious lymphangitis or streaking up the leg. Results & Data Results & Data ([facility]) Vital Signs (Past 12 Hours) Vital Signs Temp Pulse Resp BP Pulse Ox 12/02/19 08:51 119 H 18 131/79 95 12/02/19 08:21 116 H 23 119/78 94 12/02/19 08:00 124 H 23 94 12/02/19 07:51 37.1 C 124 H 24 156/77 H 94 12/02/19 07:21 101 H 21 124/77 92 12/02/19 07:00 103 H 21 93 12/02/19 06:00 114 H 22 94 12/02/19 05:51 115 H 23 121/79 95 12/02/19 05:45 114 H 20 95 12/02/19 05:30 107 H 22 90 12/02/19 05:21 109 H 19 125/78 93 12/02/19 05:15 108 H 24 93 12/02/19 05:00 113 H 21 93 12/02/19 04:51 119 H 17 123/72 93 12/02/19 04:45 110 H 21 91 12/02/19 04:30 108 H 24 92 12/02/19 04:21 114 H 24 117/73 92 12/02/19 04:15 111 H 26 H 92 12/02/19 04:00 36.7 C 119 H 23 90 12/02/19 03:51 117 H 22 123/64 90 12/02/19 03:45 115 H 24 90 12/02/19 03:30 118 H 21 91 12/02/19 03:21 116 H 21 115/71 91 12/02/19 03:15 121 H 24 92 12/02/19 03:00 117 H 25 H 93 12/02/19 02:52 116 H 23 146/117 H 92 12/02/19 02:45 117 H 28 H 93 12/02/19 02:30 114 H 22 94 12/02/19 02:21 114 H 25 H 100/72 94 12/02/19 02:15 112 H 25 H 94 12/02/19 02:00 113 H 26 H 109/76 93 12/02/19 01:51 116 H 18 109/76 94 12/02/19 01:45 111 H 24 93 12/02/19 01:30 114 H 26 H 94 12/02/19 01:21 115 H 28 H 105/81 95 12/02/19 01:15 108 H 18 95 12/02/19 01:00 127 H 18 90 12/02/19 00:50 111 H 21 123/104 H 96 12/02/19 00:45 108 H 22 96 12/02/19 00:30 116 H 25 H 95 12/02/19 00:21 104 H 23 124/68 93 12/02/19 00:15 112 H 31 H 93 12/02/19 00:00 36.6 C 110 H 25 H 12/01/19 23:50 116 H 26 H 124/77 93 12/01/19 23:45 112 H 14 92 12/01/19 23:30 113 H 26 H 12/01/19 23:20 93 H 28 H 104/74 12/01/19 23:15 110 H 25 H 96 Laboratory Results 12/02/19 12/02/19 12/02/19 Range/Units 07:42 04:13 04:13 WBC 9.56 (4.8-10.8) K/uL RBC 3.33 L (4.7-6.1) M/uL Hgb 9.5 L (14.0-18.0) g/dL Hct 28.1 L (42-52) % MCV 84.4 (80-100) fL MCH 28.5 (25-34) pg MCHC 33.8 (32-36) g/dL RDW Std Deviation 49.2 H (36.4-46.3) fL RDW Coeff of Cristela 15.9 H (11.5-14.5) % Plt Count 233 (130-400) K/uL MPV 9.3 (7.4-10.4) fL Sodium 142 (136-145) mmol/L Potassium 3.9 (3.5-5.1) mmol/L Chloride 113 H (98-107) mmol/L Carbon Dioxide 19 L (21-32) mmol/L Anion Gap 10.0 (3-11) BUN 63 H (7-18) mg/dl Creatinine 3.39 H D (0.6-1.4) mg/dl Est Cr Clr Drug Dosing 33.0 ml/min Est GFR ( Amer) 22.0 Est GFR (Non-Af Amer) 19.0 BUN/Creatinine Ratio 18.7 (10-20) Glucose 187 H (70-99) mg/dl POC Glucose 202 H (70-99) mg/dl Calcium 7.3 L (8.5-10.1) mg/dl Phosphorus 2.5 (2.5-4.9) mg/dl Magnesium 2.5 H (1.8-2.4) mg/dl 12/02/19 12/01/19 12/01/19 Range/Units 04:01 23:42 20:03 WBC (4.8-10.8) K/uL RBC (4.7-6.1) M/uL Hgb (14.0-18.0) g/dL Hct (42-52) % MCV (80-100) fL MCH (25-34) pg MCHC (32-36) g/dL RDW Std Deviation (36.4-46.3) fL RDW Coeff of Cristela (11.5-14.5) % Plt Count (130-400) K/uL MPV (7.4-10.4) fL Sodium (136-145) mmol/L Potassium (3.5-5.1) mmol/L Chloride (98-107) mmol/L Carbon Dioxide (21-32) mmol/L Anion Gap (3-11) BUN (7-18) mg/dl Creatinine (0.6-1.4) mg/dl Est Cr Clr Drug Dosing ml/min Est GFR ( Amer) Est GFR (Non-Af Amer) BUN/Creatinine Ratio (10-20) Glucose (70-99) mg/dl POC Glucose 176 H 191 H 205 H (70-99) mg/dl Calcium (8.5-10.1) mg/dl Phosphorus (2.5-4.9) mg/dl Magnesium (1.8-2.4) mg/dl 12/01/19 12/01/19 12/01/19 Range/Units 15:52 15:37 11:10 WBC (4.8-10.8) K/uL RBC (4.7-6.1) M/uL Hgb (14.0-18.0) g/dL Hct (42-52) % MCV (80-100) fL MCH (25-34) pg MCHC (32-36) g/dL RDW Std Deviation (36.4-46.3) fL RDW Coeff of Cristela (11.5-14.5) % Plt Count (130-400) K/uL MPV (7.4-10.4) fL Sodium 140 (136-145) mmol/L Potassium 3.7 (3.5-5.1) mmol/L Chloride 111 H (98-107) mmol/L Carbon Dioxide 21 (21-32) mmol/L Anion Gap 8.0 (3-11) BUN 70 H (7-18) mg/dl Creatinine 4.21 H D (0.6-1.4) mg/dl Est Cr Clr Drug Dosing 26.6 ml/min Est GFR ( Amer) 17.0 Est GFR (Non-Af Amer) 14.6 BUN/Creatinine Ratio 16.6 (10-20) Glucose 164 H (70-99) mg/dl POC Glucose 159 H 166 H (70-99) mg/dl Calcium 7.3 L (8.5-10.1) mg/dl Phosphorus (2.5-4.9) mg/dl Magnesium (1.8-2.4) mg/dl Coding Level of Care Code 89063 Subseq Hosp Care Lvl 2 Diagnoses Admitted to intensive care unit Z78.9
[2019-12-02] MEDS: CEFAZOLIN 1000MG 1,000 MG/7.5 ML SYR IV SCH (11:35)
--- NOTE | 2019-12-02 14:16 | Orthopedic Consultation ---
Date of Consultation December 02, 2019 Assessment & Plan (1) Ulcer of left foot due to type 2 diabetes mellitus: X-rays are consistent with chronic osteomyelitis second toe. The wound at this point appears to be clean and dry. No erythema or drainage. I discussed with the patient that at some point he will likely require a partial amputation to definitively treat the osteomyelitis but this can be done on a more elective basis once he is more stable. He can follow-up with Dr. Krishnamurthy for definitive treatment. History of Present Illness Reason for Consultation: Left second toe osteomyelitis Attending Physician: Quinton Zhao MD History of Present Illness Patient is a 59-year-old male that was admitted for treatment of sepsis with septic shock with new onset chest pain and concerning wide-complex tachyarrhythmia. He is currently in the ICU. He has a known diabetic ulcer on the left second toe. He states that that likely started from abrasions from his work boot starting back in August. He states he has sensation in his feet. And that he is not currently experiencing any pain in the foot or toe. He has been treated by the wound clinic. X-rays have been obtained which demonstrated lytic region regions consistent with osteomyelitis Allergies Allergy/AdvReac Type Severity Reaction Status Date / Time No Known Allergies Allergy Unverified 11/26/19 10:57 Home Medications Home Medications Medication Instructions Recorded Confirmed Type aspirin [Aspir-81] 81 mg PO QAM 11/26/19 11/26/19 History atorvastatin 80 mg PO QAM 11/26/19 11/26/19 History canagliflozin [Invokana] 300 mg PO QAM 11/26/19 11/26/19 History dulaglutide [Trulicity] 1.5 mg SUBCUT MOLINA 11/26/19 11/26/19 History furosemide 20 mg PO BID 11/26/19 11/26/19 History insulin glargine [Lantus Solostar 20 unit SUBCUT HS 11/26/19 11/26/19 History U-100 Insulin] metformin 1,000 mg PO BIDM 11/26/19 11/26/19 History obpuekwl-zep-ppnsh-vit K-lycop 1 tab PO QAM 11/26/19 11/26/19 History [Men's Multivitamin] nitroglycerin [Nitrostat] 0.4 mg SUBLINGUAL UD PRN 11/26/19 11/26/19 History sacubitril-valsartan [Entresto] 1 tab PO BID 11/26/19 11/26/19 History Patient History Medical History Anemia Cardiomyopathy Diabetic neuropathy Duodenitis Dyslipidemia Heart failure Hypertension Hyponatremia Injury of left shoulder (Inactive) 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 Lyme disease Obesity Renal insufficiency Splenic infarct (Acute) Work related injury (Inactive) Surgical History History of colonoscopy History of esophagogastroduodenoscopy (EGD) Presence of biventricular implantable cardioverter-defibrillator (ICD) Status post amputation of toe of right foot [place] teeth extracted Family History Father Heart disease Social History Preferred Language: Estonian Communication Ability: Effective Director Of Outside Sales Required: No Beliefs That Will Affect Care: None marital status: Single Current Living Situation: Alone Other Information That Helps Us Care for You: No Feels Safe at Home: Yes Safety Concerns: Feels Safe At This Time Smoking Status: Never smoker Hx Alcohol Use: No Hx Substance Use: No Physical Exam Constitutional: WD/WN, vitals as above Respiratory: normal respiratory effort Cardiovascular: Extremities: no edema Musculoskeletal: Left lower extremity: There is a diabetic ulcer over the tip of the left second toe. There is no erythema. There is no drainage. There is some mild discoloration more proximally. No tenderness to palpation. Results & Data ([facility]) Vital Signs (Past 12 Hours) Vital Signs Temp Pulse Resp BP Pulse Ox 12/02/19 08:51 119 H 18 131/79 95 12/02/19 08:21 116 H 23 119/78 94 12/02/19 08:00 124 H 23 94 12/02/19 07:51 37.1 C 124 H 24 156/77 H 94 12/02/19 07:21 101 H 21 124/77 92 12/02/19 07:00 103 H 21 93 12/02/19 06:00 114 H 22 94 12/02/19 05:51 115 H 23 121/79 95 12/02/19 05:45 114 H 20 95 12/02/19 05:30 107 H 22 90 12/02/19 05:21 109 H 19 125/78 93 12/02/19 05:15 108 H 24 93 12/02/19 05:00 113 H 21 93 12/02/19 04:51 119 H 17 123/72 93 12/02/19 04:45 110 H 21 91 12/02/19 04:30 108 H 24 92 12/02/19 04:21 114 H 24 117/73 92 12/02/19 04:15 111 H 26 H 92 12/02/19 04:00 36.7 C 119 H 23 90 12/02/19 03:51 117 H 22 123/64 90 12/02/19 03:45 115 H 24 90 12/02/19 03:30 118 H 21 91 12/02/19 03:21 116 H 21 115/71 91 12/02/19 03:15 121 H 24 92 12/02/19 03:00 117 H 25 H 93 12/02/19 02:52 116 H 23 146/117 H 92 12/02/19 02:45 117 H 28 H 93 12/02/19 02:30 114 H 22 94 05 02:21 114 H 25 H 100/72 94 12/02/19 02:15 112 H 25 H 94
--- NOTE | 2019-12-02 16:31 | Hospitalist Progress Note ---
Date of Service December 02, 2019 Assessment & Plan (1) Septic shock: secondary to MSSA bacteremia, Left toe culprit nonhealing wound due to DM type 2, with osteomyelitis Patient is a 59-year-old male with history of nonischemic cardiomyopathy, status post AICD pacemaker placement, diabetes type 2, hypertension, presented with nausea vomiting abdominal pain. --off levophed since yesterday Afebrile Leukocytosis improving -- repeat blood cultures: Negative so far --Transitioned from Dapto and Zosyn to cefazolin IV day 2 -- Wound Care Consulted-does not need I&D at this point --Orthopedic service consulted, recommend partial toe amputation when patient is more stable, possibly as an outpatient (2) Splenic infarct: Likely secondary to above versus embolic secondary to underlying A. fib Patient to be started on heparin drip today, management per below (3) TITA (acute kidney injury): Likely Secondary to Vancomycin, Septic Shock Renal ultrasound did not show any renal artery obstruction and good flow in the veins Vancomycin discontinued management of Sepsis as per above Accounts Receivable Accountant consulted --Bicarb drip continued crea further improved from 5.1 --> 4.6-->3.4 urine output increasing -- continue to closely monitor daily (4) Duodenitis: Noted in CAT scan s/p EGD Likely the cause for nausea and vomiting continue p.o. Protonix and sulfate Globin remaining stable around 10 Cardiology discussed with myles MORRISON with starting low-dose heparin (5) Nausea and vomiting: secondary to above Resolved (6) NICM (nonischemic cardiomyopathy): (7) CHF (congestive heart failure): Chronic Systolic Congestive heart failure and s/p ICD placement in July 2019. Echo completed last week as an outpatient. Seems unlikely to be source of infarcts. EKG completed in ED no new changes. No evidence of ACS and no evidence of acute CHF -- euvolemic Pacemaker interrogation: Appropriate pacemaker function as per Dr. Reed --Underlying rhythm is atrial fibrillation as per Dr. Coleman Light of septic infarcts, Heparin drip to be started today Transition to Coumadin eventually (8) DM (diabetes mellitus): off insulin drip a1c 7.8 (9) HTN (hypertension): hold Sacubitril- Valsartan in light of hypotension (10) DVT prophylaxis: SCDs heparin drip Disposition: Pending Case discussed with patient's Sister Miryam, case discussed in detail and at length All questions were answered She is understanding, agreeable, comfortable with plan of care Admission and Anticipated Discharge Date Admission Date: November 26, 2019 Subjective Follow-up for septic shock, MSSA bacteremia, acute renal failure Seen resting in bed sitting up, not in distress, in good spirits Off Levophed since yesterday No acute events overnight per RN Patient states that he continues to feels improved daily Denies shortness of breath, palpitations, dizziness, chest pain No abdominal pain, no nausea vomiting Denies pain on the left foot No other symptoms Review of Systems Review of Systems: All systems reviewed & are unremarkable except as noted in HPI & below Physical Exam Physical Exam: General- oriented x 3, not in distress, speaks in sentences with no effort or accessory muscle use Eyes- anicteric Neck- no JVD Lungs- clear breath sounds, no crackles, no wheezing bilaterally Heart-tachycardic, irregularly irregular rhythm; no murmurs Abdomen- normal bowel sounds, nondistended, soft, nontender Extremities- no pretibial edema, no calf tenderness Left foot-second toe: Less edema, less discoloration Neuro- alert, oriented x 3; no gross focal neurologic deficits Skin- warm & dry Results & Data Results & Data ([facility]) Vital Signs (Past 12 Hours) Vital Signs Temp Pulse Resp BP Pulse Ox 12/02/19 15:19 112 H 19 126/84 93 12/02/19 15:15 106 H 19 92 12/02/19 15:04 117 H 21 110/91 94 12/02/19 15:00 99 H 19 92 12/02/19 14:49 113 H 19 117/88 94 12/02/19 14:45 122 H 20 94 12/02/19 14:34 111 H 18 122/77 93 12/02/19 14:30 112 H 22 94 12/02/19 14:19 116 H 23 113/79 93 12/02/19 14:17 117 H 29 H 108/79 92 12/02/19 14:15 113 H 29 H 94 12/02/19 14:03 119 H 24 123/81 93 12/02/19 14:00 121 H 19 94 12/02/19 13:51 115 H 22 116/84 95 12/02/19 13:21 118 H 19 129/74 92 05/24/20 13:00 111 H 18 94 12/02/19 12:51 122 H 22 126/97 93 12/02/19 12:21 120 H 25 H 106/77 92 12/02/19 12:00 37.0 C 109 H 22 93 12/02/19 11:52 112 H 25 H 130/92 92 12/02/19 11:21 109 H 20 116/70 95 12/02/19 11:00 111 H 19 94 12/02/19 10:51 117 H 23 115/74 93 12/02/19 10:21 121 H 23 132/96 94 12/02/19 10:00 114 H 22 95 12/02/19 09:51 117 H 23 121/78 93 12/02/19 09:21 117 H 23 115/77 93 12/02/19 09:00 115 H 26 H 92 12/02/19 08:52 122 H 21 93 12/02/19 08:51 119 H 18 131/79 95 12/02/19 08:21 116 H 23 119/78 94 12/02/19 08:00 124 H 23 94 12/02/19 07:51 37.1 C 124 H 24 156/77 H 94 12/02/19 07:21 101 H 21 124/77 92 12/02/19 07:00 103 H 21 93 12/02/19 06:00 114 H 22 94 12/02/19 05:51 115 H 23 121/79 95 12/02/19 05:45 114 H 20 95 12/02/19 05:30 107 H 22 90 12/02/19 05:21 109 H 19 125/78 93 12/02/19 05:15 108 H 24 93 12/02/19 05:00 113 H 21 93 12/02/19 04:51 119 H 17 123/72 93 12/02/19 04:45 110 H 21 91 12/02/19 04:30 108 H 24 92 (1) Nausea and vomiting Vomiting Intractability: unspecified Vomiting type: unspecified Qualified Code(s): R11.2 - Nausea with vomiting, unspecified
[2019-12-02 16:52] LABS: Partial Thromboplastin Ratio 1.5; Partial Thromboplastin Time 41.1 Seconds (21.0-31.0)
[2019-12-02] MEDS ORDERED: Nursing to Pharmacy Communication ONE (17:32)
[2019-12-02] MEDS ORDERED: HEPARIN IV BOLUS 4,000 UNITS in SYRINGE 0 ML IV ONE (17:45)
[2019-12-02 23:59] LABS: Partial Thromboplastin Ratio 1.8
[2019-12-03] MEDS: SODIUM BICARBONATE IV SCH ×2 (00:01→14:47)
[2019-12-03] MEDS: CEFAZOLIN 1000MG 1,000 MG/7.5 ML SYR IV SCH ×2 (00:01→10:01)
[2019-12-03] MEDS: POTASSIUM CHLORIDE IV SCH ×2 (00:01→14:47)
[2019-12-03] MEDS: [UNRECOGNIZED DRUG - OTHER] IV SCH ×2 (00:01→14:47)
[2019-12-03 00:06] LABS: Partial Thromboplastin Time 50.4 Seconds (21.0-31.0)
[2019-12-03] MEDS: INSULIN ASPART 100 UNITS/ML 3 ML PEN SC SCH ×6 (00:06→20:37)
[2019-12-03] MEDS ORDERED: METOPROLOL TARTRATE 1 MG/ML VIAL IV STA ×2 (03:43→06:39)
--- NOTE | 2019-12-03 03:46 | Communication Note ---
Date of Service: December 03, 2019 Made aware by RN of persistent tachycardia since admission last week. Cardiac rate 120s as per RN. SBP 1 40-1 50s since last night as per RN. Patient off pressors the last 36 hours. Patient sleeping as per RN. AP Tachycardia, hx underlying AF/cardiomyopathy (Beta-avinash could not be initiated due to hypotensionon admission as per a.m. notes.) Lopressor IV one dose now Initiate low-dose oral beta-avinash minatenance rx. Will relay to AM provider.
[2019-12-03 04:23] LABS: Hematocrit (blood only) 29.6 % (42-52); Hemoglobin 9.8 g/dL (14.0-18.0); Mean Corpuscular Hemoglobin 28.1 pg (25-34); Mean Corpuscular Hgb Conc 33.1 g/dL (32-36); Mean Corpuscular Volume 84.8 fL (80-100); Platelet Count 293 K/uL (130-400); RDW Coefficient of Variation 15.9 % (11.5-14.5); RDW Standard Deviation 49.3 fL (36.4-46.3); Red Blood Count 3.49 M/uL (4.7-6.1); White Blood Count 13.05 K/uL (4.8-10.8)
[2019-12-03 04:36] LABS: Partial Thromboplastin Ratio 1.6; Partial Thromboplastin Time 44.7 Seconds (21.0-31.0)
[2019-12-03 04:50] LABS: BUN Creatinine Ratio 19.4 (10-20); Calcium 7.4 mg/dl (8.5-10.1); Creatinine Clr Calc Pharmacy 45.1 ml/min; Est GFR (African American) 31.5; Est GFR (Non-African American) 27.2; Magnesium 2.3 mg/dl (1.8-2.4)
[2019-12-03 05:01] LABS: Thyroid Stimulating Hormone 3.61 uIu/ml (0.300-4.500)
[2019-12-03] MEDS ORDERED: HEPARIN IV BOLUS 4,000 UNITS in SYRINGE 0 ML IV ONE (05:24)
[2019-12-03 05:33] LABS: Basophils # (auto) 0.03 K/uL (0-0.2); Basophils % (auto) 0.2 %; Echinocytes 1+; Eosinophils # (auto) 0.12 K/uL (0-0.5); Eosinophils % (auto) 0.9 %; Immature Granulocytes % (auto) 6.9 %; Lymphocytes # (auto) 1.01 K/uL (1.2-3.4); Lymphocytes % (auto) 7.7 %; Monocytes # (auto) 0.82 K/uL (0.11-0.59); Monocytes % (auto) 6.3 %; Neutrophils # (auto) 10.17 K/uL (1.4-6.5); Polychromasia 1+
[2019-12-03] MEDS: PANTOprazole 40 MG TAB PO SCH ×2 (08:06→20:35)
[2019-12-03] MEDS: FLUCONAZOLE 100 MG TAB PO SCH (08:06)
[2019-12-03] MEDS: SUCRALFATE 1 GM/10 ML UDC PO SCH ×4 (08:06→20:34)
[2019-12-03] MEDS: ATORVASTATIN 40 MG TAB PO SCH (08:06)
[2019-12-03] MEDS: INSULIN GLARGINE SOLOSTAR 100 UNITS/ML 3 ML PEN SC SCH ×2 (08:07→20:36)
--- NOTE | 2019-12-03 08:35 | Cardiology Progress Note ---
Date of Service December 03, 2019 Assessment & Plan (1) NICM (nonischemic cardiomyopathy): (2) Atrial fibrillation: (3) TITA (acute kidney injury): (4) MSSA bacteremia: (5) Sepsis associated hypotension: (6) Biventricular automatic implantable cardioverter defibrillator in situ: The patient's creatinine continues to trend down and his urine output has picked up. He remains in atrial fibrillation with high heart rates. He received metoprolol last night. I will increase his metoprolol dose to 25 mg twice daily. 1 could consider giving him a dose of digoxin to slow his heart rate down if necessary. Otherwise from a cardiac standpoint he is stable. Subjective The patient is alert appears to be comfortable. He has no complaints today. Review of Systems Review of Systems: All systems reviewed & are unremarkable except as noted in HPI & below Nothing additional to add. Physical Exam Physical Exam: General: no acute distress and stated age Head: normocephalic, no masses, lesions, tenderness or abnormalities Eyes: conjunctiva are pink and non-injected, sclera clear Neck: supple, no adenopathy, no bruits, normal jugular venous pulse, no hepatojugular reflux Chest: normal shape and normal respiratory effort Lungs: clear to auscultation and percussion Cardiac Exam: -Irregular rate & rhythm, no murmurs gallops or rubs - normal S1, normal S2 Pulses: 2(+) throughout Abdomen: abdomen soft, non-tender, no abnormal masses and no hepatosplenomegaly Musculoskeletal: no gait disturbance, no joint inflammation, no deforming arthritis Extremities: no edema and no cyanosis Neuro: grossly normal exam Results & Data Vital Signs (Past 12 Hours) Vital Signs Temp Pulse Resp BP Pulse Ox 12/03/19 08:04 130 H 127/75 12/03/19 05:45 36.7 C 115 H 25 H 94 12/03/19 05:30 128 H 25 H 94 12/03/19 05:15 115 H 23 93 12/03/19 05:00 112 H 23 12/03/19 04:45 109 H 24 94 12/03/19 04:31 115 H 27 H 93 12/03/19 04:29 122 H 27 H 134/73 94 12/03/19 04:15 116 H 26 H 93 12/03/19 04:00 123 H 22 93 12/03/19 03:45 124 H 24 93 12/03/19 03:30 136 H 25 H 95 12/03/19 03:20 127 H 25 H 124/84 95 12/03/19 03:15 117 H 22 95 12/03/19 03:00 115 H 28 H 88 L 12/03/19 02:45 122 H 23 93 12/03/19 02:31 126 H 23 94 12/03/19 02:30 122 H 19 86/56 L 93 12/03/19 02:15 123 H 26 H 12/03/19 02:00 126 H 18 91 12/03/19 01:45 126 H 23 93 12/03/19 01:30 125 H 22 90 12/03/19 01:15 134 H 27 H 91 12/03/19 01:00 130 H 26 H 98 12/03/19 00:49 132 H 37 H 12/03/19 00:31 109 H 28 H 12/03/19 00:29 116 H 21 139/92 95 12/03/19 00:15 114 H 25 H 95 12/03/19 00:00 36.7 C 115 H 21 96 12/02/19 23:45 103 H 22 94 12/02/19 23:30 117 H 24 95 12/02/19 23:15 120 H 25 H 94 12/02/19 23:00 122 H 22 94 12/02/19 22:45 117 H 22 95 12/02/19 22:31 116 H 23 92 12/02/19 22:29 117 H 23 139/94 93 12/02/19 22:15 112 H 23 93 12/02/19 22:00 120 H 22 95 12/02/19 21:45 112 H 22 94 12/02/19 21:30 107 H 23 94 12/02/19 21:15 110 H 23 96 12/02/19 21:00 102 H 21 95 12/02/19 20:45 109 H 22 93 Laboratory Results Laboratory Results - last 24 hr 12/02/19 12/02/19 12/02/19 11:23 16:18 16:27 WBC RBC Hgb Hct MCV MCH MCHC RDW Std Deviation RDW Coeff of Cristela Plt Count MPV Immature Gran % (Auto) Neut % (Auto) Lymph % (Auto) Mclean % (Auto) Eos % (Auto) Baso % (Auto) Immature Gran # (Auto) Neut # (Auto) Lymph # (Auto) Mclean # (Auto) Eos # (Auto) Baso # (Auto) Polychromasia Echinocytes APTT 41.1 H PTT Ratio 1.5 Sodium Potassium Chloride Carbon Dioxide Anion Gap BUN Creatinine Est Cr Clr Drug Dosing Est GFR ( Amer) Est GFR (Non-Af Amer) BUN/Creatinine Ratio Glucose POC Glucose 169 H 158 H Calcium Magnesium TSH 12/02/19 12/02/19 12/03/19 19:51 23:29 00:04 WBC RBC Hgb Hct MCV MCH MCHC RDW Std Deviation RDW Coeff of Cristela Plt Count MPV Immature Gran % (Auto) Neut % (Auto) Lymph % (Auto) Mclean % (Auto) Eos % (Auto) Baso % (Auto) Immature Gran # (Auto) Neut # (Auto) Lymph # (Auto) Mclean # (Auto) Eos # (Auto) Baso # (Auto) Polychromasia Echinocytes APTT 50.4 H* PTT Ratio 1.8 Sodium Potassium Chloride Carbon Dioxide Anion Gap BUN Creatinine Est Cr Clr Drug Dosing Est GFR ( Amer) Est GFR (Non-Af Amer) BUN/Creatinine Ratio Glucose POC Glucose 181 H 182 H Calcium Magnesium TSH 12/03/19 12/03/19 12/03/19 04:13 04:13 04:13 WBC 13.05 H RBC 3.49 L Hgb 9.8 L Hct 29.6 L MCV 84.8 MCH 28.1 MCHC 33.1 RDW Std Deviation 49.3 H RDW Coeff of Cristela 15.9 H Plt Count 293 MPV 9.0 Immature Gran % (Auto) 6.9 Neut % (Auto) 78.0 Lymph % (Auto) 7.7 Mclean % (Auto) 6.3 Eos % (Auto) 0.9 Baso % (Auto) 0.2 Immature Gran # (Auto) 0.90 H Neut # (Auto) 10.17 H Lymph # (Auto) 1.01 L Mclean # (Auto) 0.82 H Eos # (Auto) 0.12 Baso # (Auto) 0.03 Polychromasia 1+ Echinocytes 1+ APTT 44.7 H PTT Ratio 1.6 Sodium 141 Potassium 4.0 Chloride 113 H Carbon Dioxide 21 Anion Gap 7.0 BUN 49 H Creatinine 2.52 H D Est Cr Clr Drug Dosing 45.1 Est GFR ( Amer) 31.5 Est GFR (Non-Af Amer) 27.2 BUN/Creatinine Ratio 19.4 Glucose 173 H POC Glucose Calcium 7.4 L Magnesium 2.3 TSH 3.610 12/03/19 12/03/19 04:15 07:35 WBC RBC Hgb Hct MCV MCH MCHC RDW Std Deviation RDW Coeff of Cristela Plt Count MPV Immature Gran % (Auto) Neut % (Auto) Lymph % (Auto) Mclean % (Auto) Eos % (Auto) Baso % (Auto) Immature Gran # (Auto) Neut # (Auto) Lymph # (Auto) Mclean # (Auto) Eos # (Auto) Baso # (Auto) Polychromasia Echinocytes APTT PTT Ratio Sodium Potassium Chloride Carbon Dioxide Anion Gap BUN Creatinine Est Cr Clr Drug Dosing Est GFR ( Amer) Est GFR (Non-Af Amer) BUN/Creatinine Ratio Glucose POC Glucose 189 H 156 H Calcium Magnesium TSH Medications Administered Current Inpatient Medications Acetaminophen (Tylenol) 650 mg PO Q4H PRN PRN Reason: Pain or Fever Stop: 12/26/19 16:14 Al Hydrox/Mg Hydrox/Simethicone (Maalox) 15 ml PO Q4H PRN PRN Reason: Dyspepsia Stop: 12/26/19 16:14 Atorvastatin Calcium (Lipitor) 40 mg PO [facility] Stop: 01/01/20 08:59 Last Admin: 12/03/19 08:06 Dose: 40 mg Documented by: Dextrose (Dextrose 50%) 25 - 50 ml IV UD PRN; Protocol PRN Reason: Hypoglycemia Protocol Stop: 12/26/19 16:14 Fluconazole (Diflucan) 100 mg PO [facility]; Protocol Stop: 12/07/19 08:59 Last Admin: 12/03/19 08:06 Dose: 100 mg Documented by: Glucagon (Glucagen) 1 mg SQ UD PRN; Protocol PRN Reason: Hypoglycemia Protocol Stop: 12/26/19 16:14 Glucose (Dex4 Glucose) 4 - 8 tabs PO UD PRN; Protocol PRN Reason: Hypoglycemia Protocol Stop: 12/26/19 16:14 Glucose (Glucose 40%) 15 - 30 gm PO UD PRN; Protocol PRN Reason: Hypoglycemia Protocol Stop: 12/26/19 16:14 Heparin Sodium (Beef Lung) (Heparin Sod 10 Unit/Ml Flush) 5 ml FLUSH PRN PRN PRN Reason: Flush Stop: 12/29/19 12:58 Last Admin: 11/29/19 13:24 Dose: 5 ml Documented by: Hydromorphone HCl (Dilaudid) 0.5 mg IV Q6 PRN PRN Reason: Severe Pain Stop: 12/10/19 16:14 Last Admin: 11/29/19 16:43 Dose: 0.5 mg Documented by: Potassium Chloride 30 meq/Sodium Bicarbonate 75 meq/Sodium Chloride 1,090 mls @ 80 mls/hr IV .[id number] [facility] Stop: 12/30/19 15:29 Last Admin: 12/03/19 00:01 Dose: 80 mls/hr Documented by: Cefazolin Sodium (Ancef 1000mg) 1,000 mg in 7.5 mls @ 2.5 mls/min IV Q12H [facility]; Protocol Stop: 12/15/19 10:59 Last Admin: 12/03/19 00:01 Dose: 2.5 mls/min Documented by: Heparin Sodium/Dextrose (Heparin Sodium/Dextrose) 25,000 units in 500 mls @ 24 mls/hr IV .[id number] [facility]; Protocol Stop: 01/01/20 10:14 Last Titration: 12/03/19 05:32 Dose: 1,200 units/hr, 24 mls/hr Documented by: Insulin Aspart (Novolog Flexpen) 0 units SC Q4 [facility]; Protocol Stop: 12/30/19 15:59 Last Admin: 12/03/19 08:15 Dose: 2 units Documented by: Insulin Glargine (Lantus Solostar Pen) 0 units SC BID [facility]; Protocol Stop: 12/31/19 08:59 Last Admin: 12/03/19 08:07 Dose: 25 units Documented by: Metoprolol Tartrate (Lopressor) 12.5 mg PO BID [facility] Stop: 01/02/20 08:59 Last Admin: 12/03/19 08:06 Dose: 12.5 mg Documented by: Metoprolol Tartrate (Lopressor) 25 mg PO BID [facility] Stop: 01/02/20 08:59 Miscellaneous (Carbohydrates For Hypoglycemia) 15 - 30 gm PO UD PRN PRN Reason: Hypoglycemia Protocol Stop: 12/26/19 16:14 Miscellaneous (Pending Order) 1 ea N/A DAILY@1000 [facility] Stop: 12/31/19 09:59 Last Admin: 12/02/19 11:13 Dose: 1 ea Documented by: Miscellaneous Information (Consult Glycemic Management Pharmacy) 1 ea N/A UD PRN PRN Reason: Consult Stop: 12/28/19 10:07 Miscellaneous Information (Consult) 1 ea N/A UD PRN PRN Reason: Consult Stop: 12/28/19 18:00 Miscellaneous Information (Pharmacy Consult) 1 ea N/A UD PRN PRN Reason: Consult Stop: 12/30/19 10:38 Ondansetron HCl (Zofran) 4 mg IV Q4H PRN PRN Reason: Nausea Stop: 12/28/19 06:00 Last Admin: 11/29/19 16:43 Dose: 4 mg Documented by: Oxycodone HCl (Roxicodone Immediate Rel) 5 mg PO Q6H PRN PRN Reason: Moderate Pain Stop: 12/10/19 16:49 Last Admin: 11/30/19 11:26 Dose: 5 mg Documented by: Pantoprazole Sodium (Protonix) 40 mg PO BID [facility] Stop: 01/24/20 09:01 Last Admin: 12/03/19 08:06 Dose: 40 mg Documented by: Sucralfate (Carafate) 1 gm PO QID [facility] Stop: 12/27/19 12:59 Last Admin: 12/03/19 08:06 Dose: 1 gm Documented by:
[2019-12-03] MEDS: METOPROLOL TARTRATE 25 MG TAB PO SCH ×2 (08:52→20:34)
[2019-12-03] MEDS ORDERED: METOPROLOL TARTRATE 25 MG TAB PO SCH (09:00)
[2019-12-03] MEDS: HEPARIN SODIUM/DEXTROSE 25,000 UNITS/500 ML BAG IV SCH (09:51)
[2019-12-03 12:32] LABS: Partial Thromboplastin Ratio 1.8
[2019-12-03 12:33] LABS: Partial Thromboplastin Time 51.6 Seconds (21.0-31.0)
[2019-12-03] MEDS: CEFAZOLIN 2000MG 2,000 MG/15 ML SYR IV SCH (17:44)
[2019-12-03] MEDS: NOREPINEPHRINE (Adult) 8 MG in DEXTROSE 5% 500 ML IV SCH (20:11)
[2019-12-04] MEDS: CEFAZOLIN 2000MG 2,000 MG/15 ML SYR IV SCH ×3 (05:38→21:30)
[2019-12-04] MEDS: [UNRECOGNIZED DRUG - OTHER] IV SCH ×2 (05:39→18:06)
[2019-12-04] MEDS: POTASSIUM CHLORIDE IV SCH ×2 (05:39→18:06)
[2019-12-04] MEDS: SODIUM BICARBONATE IV SCH ×2 (05:39→18:06)
[2019-12-04] MEDS: HEPARIN SODIUM/DEXTROSE 25,000 UNITS/500 ML BAG IV SCH (05:40)
[2019-12-04 06:28] LABS: Partial Thromboplastin Ratio 1.8
[2019-12-04 06:36] LABS: Partial Thromboplastin Time 50.7 Seconds (21.0-31.0)
[2019-12-04] MEDS: METOPROLOL TARTRATE 25 MG TAB PO SCH (08:14)
[2019-12-04] MEDS: INSULIN GLARGINE SOLOSTAR 100 UNITS/ML 3 ML PEN SC SCH (08:14)
[2019-12-04] MEDS: INSULIN ASPART 100 UNITS/ML 3 ML PEN SC SCH ×5 (08:14→23:51)
[2019-12-04] MEDS: FLUCONAZOLE 100 MG TAB PO SCH (08:15)
[2019-12-04] MEDS: ATORVASTATIN 40 MG TAB PO SCH (08:15)
[2019-12-04] MEDS: SUCRALFATE 1 GM/10 ML UDC PO SCH ×4 (08:15→20:09)
[2019-12-04] MEDS: PANTOprazole 40 MG TAB PO SCH ×2 (08:15→20:10)
[2019-12-04 11:41] LABS: Est GFR (African American) 37.8; Est GFR (Non-African American) 32.6
--- NOTE | 2019-12-04 12:04 | Pharmacy Report ---
Pharmacy Glycemic Short Note 2 - Date of Service December 04, 2019 - Glycemic Short BSG Results (Last 24 hours): Outpatient Anti-diabetic Regimen: * Lantus 20 units SC HS * Metformin * Dulaglutide * Canagliflozin * A1c = 7.8 % on 11/27/19 ASSESSMENT: 12/03: * 59 yo M with sepsis/MSSA bacteremia 2nd osteomyelitis complicated by splenic infarct with new onset chest pain and wide-complex tachyarrhythmia prompting cath laboratory technician evaluation on 11/27 * Patient received a total of 67 units of insulin yesterday * 50 units Basal * 17 units Bolus * BSGs ranged 156 - 192 mg/dL, acceptable * Fasting BSG improved today to 102 mg/dL, continue with current basal scale * Post-prandial BSGs acceptable, no change in bolus insulin PLAN FOR INPATIENT GLYCEMIC CONTROL: * Continue to hold outpatient oral diabetes medications * Basal insulin * Lantus per scale BID depending on BSG: * 20 for BSG less than 140 mg/dL * 25 for BSG 140 mg/dL or more * Bolus insulin * Novolog ACHS * Goal range: 120-160 mg/dL * Correction factor: 15 mg/dL/unit * Carb ratio: 1 unit for every 6 g CHO
--- NOTE | 2019-12-04 12:10 | Cardiology Progress Note ---
Date of Service December 04, 2019 Assessment & Plan (1) NICM (nonischemic cardiomyopathy): (2) Atrial fibrillation: (3) TITA (acute kidney injury): (4) MSSA bacteremia: (5) Sepsis associated hypotension: (6) Biventricular automatic implantable cardioverter defibrillator in situ: Sepsis improved. Will need toe amputation at some point in future. BP trended back to baseline. Remains in AF. HD access removed. Increase metoprolol tartrate to 50 mg BID. Was on Coreg 12.5 mg BID in past. Continue heparin gtt, add coumadin, 5 mg daily, check INR in am. Subjective Feeling well. Having liquid diet for lunch. Telemetry reveals ongoing AF , el evated rates, 130s with eating , 150s with walking short distances. Denies CP, SOB, palpitations or Abdominal discomfort. Physical Exam Physical Exam: Temp Pulse Resp BP Pulse Ox 36.5 C 96 H 18 130/59 L 96 12/04/19 11:48 12/04/19 11:48 12/04/19 11:48 12/04/19 11:48 12/04/19 11:48 Constitutional: WD/WN, vitals as above Respiratory: normal respiratory effort, lungs clear to auscultation Cardiovascular: Rate/Rhythm: + tachycardic Heart Sounds: no murmur Extremities: no edema Gastrointestinal (Abdomen): normal bowel sounds, soft, nontender, no hepatosplenomegaly Neurologic: PERRL, EOMI, accommodation nl, no face palsy, no dysarthria Results & Data Vital Signs (Past 12 Hours) Vital Signs Temp Pulse Resp BP Pulse Ox 12/04/19 11:48 36.5 C 96 H 18 130/59 L 96 12/04/19 08:00 36.9 C 96 H 18 145/92 H 94 12/04/19 03:20 36.7 C 100 H 18 129/84 95 Laboratory Results Coagulation 12/03/19 12/04/19 Range/Units 11:58 05:49 APTT 51.6 H* 50.7 H* (21.0-31.0) Seconds Comprehensive Metabolic Panel 12/04/19 Range/Units 11:13 Creatinine 2.17 H D (0.6-1.4) mg/dl Intake and Output 12/03/19 12/04/19 12/04/19 22:59 06:59 14:59 Intake Total 419.6 / 3955.566 1696.0 / 3955.566 34 / 34 Output Total 400 / 1600 650 / 1600 Balance 19.6 / 2355.566 1046.0 / 2355.566 33 / 33 Intake: IV 219.6 / 2755.566 1346.0 / 2755.566 34 / 34 HEPARIN SODIUM/DEXTROSE 25,000 219.6 / 575.566 256.0 / 575.566 34 / 34 units In 500 ml @ 1,200 UNITS/ HR 24 mls/hr IV .[id number] [facility] Rx #:[id number] KCl 30 Meq Sodium Bicarbonate 8 1090 / 2180 .4% 75 Meq In 1/2 Nss 1,000 ml @ 80 mls/hr IV .[id number] [facility] Rx# :[id number] Oral 200 / 1200 350 / 1200 Output: Urine Amount (Catheter) 400 / 1600 650 / 1600 Bauer/Indwelling 400 / 1600 650 / 1600 # Bowel Movements Other: Weight 118.7 kg Medications Administered Current Inpatient Medications Acetaminophen (Tylenol) 650 mg PO Q4H PRN PRN Reason: Pain or Fever Stop: 12/26/19 16:14 Al Hydrox/Mg Hydrox/Simethicone (Maalox) 15 ml PO Q4H PRN PRN Reason: Dyspepsia Stop: 12/26/19 16:14 Atorvastatin Calcium (Lipitor) 40 mg PO [facility] Stop: 01/01/20 08:59 Last Admin: 12/04/19 08:15 Dose: 40 mg Documented by: Dextrose (Dextrose 50%) 25 - 50 ml IV UD PRN; Protocol PRN Reason: Hypoglycemia Protocol Stop: 12/26/19 16:14 Fluconazole (Diflucan) 100 mg PO [facility]; Protocol Stop: 12/07/19 08:59 Last Admin: 12/04/19 08:15 Dose: 100 mg Documented by: Glucagon (Glucagen) 1 mg SQ UD PRN; Protocol PRN Reason: Hypoglycemia Protocol Stop: 12/26/19 16:14 Glucose (Dex4 Glucose) 4 - 8 tabs PO UD PRN; Protocol PRN Reason: Hypoglycemia Protocol Stop: 12/26/19 16:14 Glucose (Glucose 40%) 15 - 30 gm PO UD PRN; Protocol PRN Reason: Hypoglycemia Protocol Stop: 12/26/19 16:14 Heparin Sodium (Beef Lung) (Heparin Sod 10 Unit/Ml Flush) 5 ml FLUSH PRN PRN PRN Reason: Flush Stop: 12/29/19 12:58 Last Admin: 11/29/19 13:24 Dose: 5 ml Documented by: Hydromorphone HCl (Dilaudid) 0.5 mg IV Q6 PRN PRN Reason: Severe Pain Stop: 12/10/19 16:14 Last Admin: 11/29/19 16:43 Dose: 0.5 mg Documented by: Potassium Chloride 30 meq/Sodium Bicarbonate 75 meq/Sodium Chloride 1,090 mls @ 80 mls/hr IV .[id number] [facility] Stop: 12/30/19 15:29 Last Admin: 12/04/19 05:39 Dose: 80 mls/hr Documented by: Heparin Sodium/Dextrose (Heparin Sodium/Dextrose) 25,000 units in 500 mls @ 24 mls/hr IV .[id number] [facility]; Protocol Stop: 01/01/20 10:14 Last Titration: 12/04/19 07:05 Dose: 1,200 units/hr, 24 mls/hr Documented by: Cefazolin Sodium (Ancef 2000mg) 2,000 mg in 15 mls @ 2.5 mls/min IV Q8H [facility]; Protocol Stop: 12/15/19 13:59 Insulin Aspart (Novolog Flexpen) 0 units SC ACHS [facility]; Protocol Stop: 01/02/20 16:29 Last Admin: 12/04/19 12:00 Dose: 6 units Documented by: Insulin Glargine (Lantus Solostar Pen) 0 units SC BID [facility]; Protocol Stop: 12/31/19 08:59 Last Admin: 12/04/19 08:14 Dose: 20 units Documented by: Metoprolol Tartrate (Lopressor) 25 mg PO BID [facility] Stop: 01/02/20 08:59 Last Admin: 12/04/19 08:14 Dose: 25 mg Documented by: Miscellaneous (Carbohydrates For Hypoglycemia) 15 - 30 gm PO UD PRN PRN Reason: Hypoglycemia Protocol Stop: 12/26/19 16:14 Miscellaneous (Pending Order) 1 ea N/A DAILY@1000 [facility] Stop: 12/31/19 09:59 Last Admin: 12/04/19 12:03 Dose: Not Given Documented by: Miscellaneous Information (Consult Glycemic Management Pharmacy) 1 ea N/A UD PRN PRN Reason: Consult Stop: 12/28/19 10:07 Miscellaneous Information (Consult) 1 ea N/A UD PRN PRN Reason: Consult Stop: 12/28/19 18:00 Miscellaneous Information (Pharmacy Consult) 1 ea N/A UD PRN PRN Reason: Consult Stop: 12/30/19 10:38 Ondansetron HCl (Zofran) 4 mg IV Q4H PRN PRN Reason: Nausea Stop: 12/28/19 06:00 Last Admin: 11/29/19 16:43 Dose: 4 mg Documented by: Oxycodone HCl (Roxicodone Immediate Rel) 5 mg PO Q6H PRN PRN Reason: Moderate Pain Stop: 12/10/19 16:49 Last Admin: 11/30/19 11:26 Dose: 5 mg Documented by: Pantoprazole Sodium (Protonix) 40 mg PO BID [facility] Stop: 01/24/20 09:01 Last Admin: 12/04/19 08:15 Dose: 40 mg Documented by: Sucralfate (Carafate) 1 gm PO QID [facility] Stop: 12/27/19 12:59 Last Admin: 12/04/19 12:03 Dose: 1 gm Documented by: Warfarin Sodium (Coumadin) 5 mg PO DAILY@1600 [facility] Stop: 01/03/20 15:59
[2019-12-04] MEDS ORDERED: METOPROLOL TARTRATE 25 MG TAB PO ONE (12:30)
--- NOTE | 2019-12-04 14:55 | Ultrasound Report ---
US arterial duplex LE BI CLINICAL HISTORY: necrotic toe ischemia COMPARISON STUDY: None FINDINGS: Real-time as well as Doppler evaluation of the arterial structures of the lower legs was p erformed. Waveforms are triphasic throughout. Velocity characteristics are unremarkable. Blood pres sure indices are difficult to acquire due to the presence of calcified vessel hernandez. , is IMPRESSION: Normal study. No significant stenosis. Blood pressure indices could not BE obtained due to calcified vessel hernandez. ACT 112: Negative or not required by law. The above report was generated using voice recognition software. It may contain grammatical, syntax or spelling errors. Electronically signed by: Gunner Fletcher M.D. 12/04/2019 2:54 PM
[2019-12-04 15:23] LABS: Hematocrit (blood only) 28.7 % (42-52); Hemoglobin 9.3 g/dL (14.0-18.0); Mean Corpuscular Hemoglobin 28.1 pg (25-34); Mean Corpuscular Volume 86.7 fL (80-100); Mean Platelet Volume 8.9 fL (7.4-10.4); Platelet Count 309 K/uL (130-400); RDW Coefficient of Variation 15.9 % (11.5-14.5); Red Blood Count 3.31 M/uL (4.7-6.1)
[2019-12-04 15:32] LABS: INR 1.4 (0.9-1.1); Prothrombin Time 14.5 Seconds (9.0-12.0)
[2019-12-04 15:37] LABS: Mean Corpuscular Hgb Conc 32.4 g/dL (32-36)
[2019-12-04 15:42] LABS: BUN Creatinine Ratio 17.1 (10-20); Calcium 7.7 mg/dl (8.5-10.1); Est GFR (African American) 37.8; Est GFR (Non-African American) 32.6; Potassium 3.7 mmol/L (3.5-5.1)
[2019-12-04] MEDS ORDERED: WARFARIN SOD 5 MG TAB PO SCH (16:00)
[2019-12-04] MEDS: METOPROLOL TARTRATE 50 MG TAB PO SCH (20:10)
[2019-12-05] MEDS: HEPARIN SODIUM/DEXTROSE 25,000 UNITS/500 ML BAG IV SCH (01:46)
[2019-12-05] MEDS: INSULIN ASPART 100 UNITS/ML 3 ML PEN SC SCH ×5 (04:18→20:22)
--- NOTE | 2019-12-05 04:36 | Hospitalist Progress Note ---
Date of Service delayed entry date of service 12/04/19 December 05, 2019 Assessment & Plan (1) Septic shock: secondary to MSSA bacteremia, Left toe culprit nonhealing wound due to DM type 2, with osteomyelitis Patient is a 59-year-old male with history of nonischemic cardiomyopathy, status post AICD pacemaker placement, diabetes type 2, hypertension, presented with nausea ,vomiting abdominal pain. --admitted to the ICU for septic shock required Levophed drip for a few days -- Afebrile Leukocytosis improving -- 1st blood cultures: MSSA -- repeat blood cultures: Negative --Transitioned from Dapto and Zosyn to cefazolin IV day 2 -- Wound Care Consulted-does not need I&D at this point -- will need several weeks of antibiotics -- Orthopedic service consulted, recommend partial toe amputation when patient is more stable request re-eval from Ortho regarding plans for definitive management of left toe ulcer (2) Splenic infarct: Likely secondary to above versus embolic secondary to underlying A. fib Patient to be started on coumadin + heparin drip, management per below (3) TITA (acute kidney injury): Likely Secondary to Vancomycin, Septic Shock Renal ultrasound did not show any renal artery obstruction and good flow in the veins Vancomycin discontinued management of Sepsis as per above Institutional Research Director consulted --Bicarb drip continued crea further improved from 5.1 --> 4.6-->3.4--> 2.1 urine output improved -- Nephro on board (4) Duodenitis: Noted in CAT scan s/p EGD Likely the cause for nausea and vomiting, along sepsis continue p.o. Protonix and sulfate HemoGlobin remaining stable around 10 Cardiology discussed with myles MORRISON with starting low-dose heparin (5) Nausea and vomiting: secondary to above Resolved (6) NICM (nonischemic cardiomyopathy): (7) CHF (congestive heart failure): Chronic Systolic Congestive heart failure and s/p ICD placement in July 2019. EKG completed in ED no new changes. No evidence of ACS and no evidence of acute CHF -- euvolemic Pacemaker interrogation: Appropriate pacemaker function as per Dr. Reed --Underlying rhythm is atrial fibrillation as per Dr. Coleman In Light of septic infarcts, which could also be embolic in etiology, coumadin + heparin started -- HR elevated usual Carvedilol changed to Metoprolol tartrate 50mg BID (8) DM (diabetes mellitus): off insulin drip a1c 7.8 continue Glargine and Aspart (9) HTN (hypertension): hold Sacubitril- Valsartan in light of hypotension now on Metoprolol Tartrate (10) DVT prophylaxis: SCDs heparin + coumadin Disposition: may need inpatient Rehab, ff PT/OT recommendations will need IV vs. PO antibiotics for MSSA bacteremia, left toe osteomyelitis please update patient's sister Miryam Case discussed with patient and patient's Sister Miryam, case discussed in detail and at length All questions were answered She is understanding, agreeable, comfortable with plan of care Admission and Anticipated Discharge Date Admission Date: November 26, 2019 Subjective ff up for sepsis, MSSA bacteremia, left toe osteomyelitis, acute renal failure, new onset a fib seen resting in bed, comfortable on room air states he continues to feel improved abdominal pain resolved, appetite improving no fever/chills no shortness of breath, palpitations, chest pain no toe or foot pain no other symptoms Review of Systems Review of Systems: All systems reviewed & are unremarkable except as noted in HPI & below Physical Exam Physical Exam: General- oriented x 3, not in distress, speaks in sentences with no effort or accessory muscle use Eyes- anicteric Neck- no JVD Lungs- clear BS BL Heart- normal rate, irregularly irregular rhythm; no murmurs Abdomen- normal bowel sounds, nondistended, soft, nontender Extremities- no pretibial edema, no calf tenderness 2nd digit, left foot: (+) dry ulcer at the distal phalanx, less edema, no discharge Neuro- alert, oriented x 3; no gross focal neurologic deficits Skin- warm & dry Results & Data Results & Data ([facility]) Vital Signs (Past 12 Hours) Vital Signs Temp Pulse Resp BP BP Pulse Ox 12/05/19 04:17 36.7 C 101 H 17 144/85 H 94 12/04/19 23:46 36.8 C 91 H 19 134/80 95 12/04/19 19:43 36.4 C L 105 H 18 133/88 94 Laboratory Results Laboratory Results - last 24 hr 12/04/19 12/04/19 12/04/19 05:49 07:35 11:13 WBC RBC Hgb Hct MCV MCH MCHC RDW Std Deviation RDW Coeff of Cristela Plt Count MPV PT INR APTT 50.7 H* PTT Ratio 1.8 Sodium Potassium Chloride Carbon Dioxide Anion Gap BUN Creatinine 2.17 H D Est Cr Clr Drug Dosing 50.0 Est GFR ( Amer) 37.8 Est GFR (Non-Af Amer) 32.6 BUN/Creatinine Ratio Glucose POC Glucose 102 H Calcium 12/04/19 12/04/19 12/04/19 11:14 15:15 15:15 WBC 12.20 H RBC 3.31 L Hgb 9.3 L Hct 28.7 L MCV 86.7 MCH 28.1 MCHC 32.4 RDW Std Deviation 51.0 H RDW Coeff of Cristela 15.9 H Plt Count 309 MPV 8.9 PT 14.5 H INR 1.4 H APTT PTT Ratio Sodium Potassium Chloride Carbon Dioxide Anion Gap BUN Creatinine Est Cr Clr Drug Dosing Est GFR ( Amer) Est GFR (Non-Af Amer) BUN/Creatinine Ratio Glucose POC Glucose 134 H Calcium 12/04/19 12/04/19 12/04/19 15:15 16:27 20:34 WBC RBC Hgb Hct MCV MCH MCHC RDW Std Deviation RDW Coeff of Cristela Plt Count MPV PT INR APTT PTT Ratio Sodium 138 Potassium 3.7 Chloride 108 H Carbon Dioxide 24 Anion Gap 6.0 BUN 37 H Creatinine 2.17 H Est Cr Clr Drug Dosing 50.0 Est GFR ( Amer) 37.8 Est GFR (Non-Af Amer) 32.6 BUN/Creatinine Ratio 17.1 Glucose 87 POC Glucose 87 79 Calcium 7.7 L 12/04/19 12/05/19 23:50 04:03 WBC RBC Hgb Hct MCV MCH MCHC RDW Std Deviation RDW Coeff of Cristela Plt Count MPV PT INR APTT PTT Ratio Sodium Potassium Chloride Carbon Dioxide Anion Gap BUN Creatinine Est Cr Clr Drug Dosing Est GFR ( Amer) Est GFR (Non-Af Amer) BUN/Creatinine Ratio Glucose POC Glucose 88 86 Calcium (1) Nausea and vomiting Vomiting Intractability: unspecified Vomiting type: unspecified Qualified Code(s): R11.2 - Nausea with vomiting, unspecified
[2019-12-05] MEDS: CEFAZOLIN 2000MG 2,000 MG/15 ML SYR IV SCH ×3 (05:30→20:52)
[2019-12-05] MEDS: [UNRECOGNIZED DRUG - OTHER] IV SCH (05:30)
[2019-12-05] MEDS: SODIUM BICARBONATE IV SCH (05:30)
[2019-12-05] MEDS: POTASSIUM CHLORIDE IV SCH (05:30)
[2019-12-05 07:57] LABS: Hematocrit (blood only) 27.6 % (42-52); Hemoglobin 8.9 g/dL (14.0-18.0); Mean Corpuscular Hemoglobin 27.9 pg (25-34); Mean Corpuscular Hgb Conc 32.2 g/dL (32-36); Mean Corpuscular Volume 86.5 fL (80-100); Platelet Count 313 K/uL (130-400); RDW Standard Deviation 51.1 fL (36.4-46.3); Red Blood Count 3.19 M/uL (4.7-6.1)
[2019-12-05] MEDS: METOPROLOL TARTRATE 50 MG TAB PO SCH ×2 (08:01→19:45)
[2019-12-05] MEDS: SUCRALFATE 1 GM/10 ML UDC PO SCH ×4 (08:01→19:45)
[2019-12-05] MEDS: ATORVASTATIN 40 MG TAB PO SCH (08:02)
[2019-12-05] MEDS: FLUCONAZOLE 100 MG TAB PO SCH (08:02)
[2019-12-05] MEDS: PANTOprazole 40 MG TAB PO SCH ×2 (08:02→19:45)
[2019-12-05 08:29] LABS: INR 2.4 (0.9-1.1); Partial Thromboplastin Ratio 2.3; Prothrombin Time 24.4 Seconds (9.0-12.0)
[2019-12-05 08:30] LABS: BUN Creatinine Ratio 15.4 (10-20); Calcium 7.7 mg/dl (8.5-10.1); Creatinine Clr Calc Pharmacy 53.9 ml/min; Est GFR (African American) 41.5; Est GFR (Non-African American) 35.8; Partial Thromboplastin Time 64.2 Seconds (21.0-31.0); Potassium 4.4 mmol/L (3.5-5.1)
[2019-12-05] MEDS ORDERED: INSULIN GLARGINE SOLOSTAR 100 UNITS/ML 3 ML PEN SC SCH ×2 (09:00→12:00)
--- NOTE | 2019-12-05 13:47 | Pharmacy Report ---
Pharmacy Glycemic Short Note 2 - Date of Service December 05, 2019 - Glycemic Short BSG Results (Last 24 hours): Outpatient Anti-diabetic Regimen: * Lantus 20 units SC HS * Metformin * Dulaglutide * Canagliflozin * A1c = 7.8 % on 11/27/19 ASSESSMENT: 12/04: * Patient's BSG decreased yesterday evening into this [id number] * For this reason, basal insulin was held last evening and this morning * Patient received 27 units total of insulin yesterday (~ 60% decrease in total daily dose as compared to previous three days) * Received 20 units basal yesterday and 7 units bolus * BSGs ranged 79-134 mg/dL * Believe patient may have been receiving too much basal insulin as regimen was basal heavy (~ 75% basal and 25% bolus) * Home regimen was 20 units of Lantus at bedtime with most recent A1c of 7.8%; has used 50 units of Lantus daily for the past 2 days * Fasting BSG this AM was 93 mg/dL, again basal insulin held this AM * Lunchtime BSG was elevated secondary to holding basal regimen x 2 doses, gave 10 units Lantus with lunch and will decrease lantus scale this evening * Will also reduce CF to prevent hypoglycemia 12/03: * 59 yo M with sepsis/MSSA bacteremia 2nd osteomyelitis complicated by splenic infarct with new onset chest pain and wide-complex tachyarrhythmia prompting orthodontic lab technician evaluation on 11/27 * Patient received a total of 67 units of insulin yesterday * 50 units Basal * 17 units Bolus * BSGs ranged 156 - 192 mg/dL, acceptable * Fasting BSG improved today to 102 mg/dL, continue with current basal scale * Post-prandial BSGs acceptable, no change in bolus insulin PLAN FOR INPATIENT GLYCEMIC CONTROL: * Continue to hold outpatient oral diabetes medications * Basal insulin - decreased * Lantus 10 units SQ x 1 at lunchtime * Lantus per scale BID depending on BSG: * 5 units for BSG less than 140 mg/dL * 10 units for BSG 140-220 mg/dL * 15 units for BSG greater than 220 mg/dL * Bolus insulin - decreased CF * Novolog ACHS * Goal range: 120-160 mg/dL * Correction factor: 20 mg/dL/unit * Carb ratio: 1 unit for every 6 g CHO
[2019-12-05 13:56] LABS: INR 3.5 (0.9-1.1); Partial Thromboplastin Ratio 2.1; Prothrombin Time 34.2 Seconds (9.0-12.0)
[2019-12-05 14:02] LABS: Partial Thromboplastin Time 58.5 Seconds (21.0-31.0)
[2019-12-05] MEDS ORDERED: FUROSEMIDE 20 MG in SYRINGE 0 ML IV ONE (15:30)
--- NOTE | 2019-12-05 15:38 | Cardiology Progress Note ---
Date of Service December 05, 2019 Assessment & Plan (1) Atrial fibrillation: After single dose of 5 mg of Coumadin, the patient's INR increased from 1.4-2.4. On repeat, still elevated heparin has been discontinued, this is also been discontinued. Monitor closely, with repeat INR tomorrow. Tartrate for rate control. Transitioning to succinate dose is established. (2) NICM (nonischemic cardiomyopathy): Patient volume overloaded. Discussed with Dr. Pérez, the discontinuation of his sodium bicarbonate drip, proceed with furosemide 20 mg IV x1. (3) TITA (acute kidney injury): Creatinine improved, to 2.01 mg/dl today. Discontinue IV fluids. Cautious Lasix as noted above. (4) Diabetic ulcer of foot associated with type 2 diabetes mellitus, with necrosis of bone: MSSA bacteremia, repeat cultures negative. IV cefazolin. Surgical intervention perhaps in his hospital stay as his kidneys continue to improve. Subjective Patient notes increased abdominal "fullness ". His hands and his lower extremities are more edematous today. Monitor reveals ongoing atrial fibrillation, ventricular rates 100 120 bpm at rest, relatively stable compared with previous his urine output has been less vigorous over the last few days with a 2.3 L positive fluid balance yesterday. Physical Exam Physical Exam: Temp Pulse Resp BP Pulse Ox 36.7 C 97 H 16 122/75 97 12/05/19 15:22 12/05/19 15:22 12/05/19 15:22 12/05/19 15:22 12/05/19 15:22 Constitutional: WD/WN, vitals as above Respiratory: Auscultation: + diminished lung sounds (Mildly decreased breath sounds in the bases); no crackles and no rales Cardiovascular: Rate/Rhythm: + tachycardic and + irregularly irregular Heart Sounds: no murmur Extremities: + edema (1+ bilateral lower extremity edema, mild and edema) Results & Data Vital Signs (Past 12 Hours) Vital Signs Temp Pulse Pulse Resp BP BP Pulse Ox 12/05/19 15:22 36.7 C 97 H 16 122/75 97 12/05/19 11:36 36.5 C 89 18 145/86 H 98 12/05/19 08:00 36.5 C 108 H 108 H 20 136/92 92 12/05/19 04:17 36.7 C 101 H 17 144/85 H 94 Laboratory Results Coagulation 12/05/19 12/05/19 Range/Units 07:20 13:09 PT 24.4 H 34.2 H (9.0-12.0) Seconds APTT 64.2 H* 58.5 H* (21.0-31.0) Seconds CBC 12/05/19 Range/Units 07:20 WBC 9.40 (4.8-10.8) K/uL RBC 3.19 L (4.7-6.1) M/uL Hgb 8.9 L (14.0-18.0) g/dL Hct 27.6 L (42-52) % Plt Count 313 (130-400) K/uL Comprehensive Metabolic Panel 12/04/19 12/05/19 Range/Units 15:15 07:20 Sodium 138 138 (136-145) mmol/L Potassium 3.7 4.4 D (3.5-5.1) mmol/L Chloride 108 H 109 H (98-107) mmol/L Carbon Dioxide 24 24 (21-32) mmol/L BUN 37 H 31 H (7-18) mg/dl Creatinine 2.17 H 2.01 H (0.6-1.4) mg/dl Glucose 87 89 (70-99) mg/dl Calcium 7.7 L 7.7 L (8.5-10.1) mg/dl Intake and Output 12/05/19 12/05/19 12/05/19 06:59 14:59 22:59 Intake Total 1317.2 / 3870.0 508.8 / 898.8 390 / 898.8 Output Total 550 / 1526 250 / 250 Balance 767.2 / 2344.0 258.8 / 648.8 390 / 648.8 Intake: IV 1267.2 / 2680.0 128.8 / 518.8 390 / 518.8 HEPARIN SODIUM/DEXTROSE 25,000 177.2 / 500.0 128.8 / 128.8 units In 500 ml @ 1,200 UNITS/ HR 24 mls/hr IV .[id number] [facility] Rx #:[id number] KCl 30 Meq Sodium Bicarbonate 8 1090 / 2180 390 / 390 .4% 75 Meq In 1/2 Nss 1,000 ml @ 80 mls/hr IV .[id number] [facility] Rx# :[id number] Oral 50 / 1190 380 / 380 Output: Urine Amount (Catheter) 550 / 1525 250 / 250 Bauer/Indwelling 550 / 1525 250 / 250 Other: Weight 118.4 kg 118.4 kg Patient Weight 12/06/19 06:59 Weight 118.4 kg
--- NOTE | 2019-12-05 16:35 | Hospitalist Progress Note ---
Date of Service December 05, 2019 Assessment & Plan (1) Septic shock: Type 2 Diabetes Mellitus with toe ulcer and osteomyelitis of toe of left foot -septic shock secondary to MSSA bacteremia, Left toe culprit nonhealing wound due to DM type 2, with osteomyelitis; Patient is a 59-year-old male with history of nonischemic cardiomyopathy, status post AICD pacemaker placement, diabetes type 2, hypertension, presented with nausea vomiting abdominal pain and required ICU admission for for septic shock -on this stay, patient was transitioned from Dapto and Zosyn to cefazolin IV by day 2 for MSSA bacteremia -as patient has improved, hospitalist have re-consulted orthopedics as of 12/05/2019 to consider performing toe amputation on this hospital stay for definitive treatment of osteomyelitis with concurrent IV antibiotics (2) Splenic infarct: -as noted on admission CT scan -Likely secondary to above versus embolic secondary to underlying Atrial fibrillation -patient has been systemically anticoagulated during this hospital stay (3) Duodenitis: Esophagitis -as noted on admission CT scan -s/p EGD with esophagitis as well as duodenitis -continue p.o. Protonix and carafate -patient was on Diflucan -12/05/2019 update: THE DIFLUCAN HAS INCREASED THE INR WHILE PATIENT WAS ON IV HEPARIN BRIDGE WITH COUMADIN BECAUSE INR WAS 1.4 ON 12/04/2019 AND INR 2.4 AND 3.5 ON 12/05/2019. DIFLUCAN STOPPED (4) Nausea and vomiting: -resolved (5) HTN (hypertension): -septic shock resolved, on Metoprolol (6) NICM (nonischemic cardiomyopathy): (7) CHF (congestive heart failure): Atrial Fibrillation Presence of ICD -Chronic Systolic Congestive heart failure and s/p ICD placement in July 2019. -Pacemaker interrogation on this admission with appropriate pacemaker function as per Dr. Reed -on metoprolol, continue -given IV Lasix 20 mg IV on 12/05/2019 because of volume overload from treating acute kidney injury with IV fluids on this admission, stop the IV fluids -12/05/2019 update: THE DIFLUCAN HAS INCREASED THE INR WHILE PATIENT WAS ON IV HEPARIN BRIDGE WITH COUMADIN BECAUSE INR WAS 1.4 ON 12/04/2019 AND INR 2.4 AND 3.5 ON 12/05/2019. DIFLUCAN STOPPED -systemic anticoagulation stopped on 12/05/2019 (8) TITA (acute kidney injury): -present on admission -creatinine has improved and the IV fluids with bicarbonate is stopped on 12/05/2019 (9) DM (diabetes mellitus): Hba1c 7.8 -continue current insulin subcutaneously (10) DVT prophylaxis: -SCDs -INR is 3.5 on 12/05/2019 recheck labs Admission and Anticipated Discharge Date Admission Date: November 26, 2019 Subjective -12/05/2019 update: THE DIFLUCAN HAS INCREASED THE INR WHILE PATIENT WAS ON IV HEPARIN BRIDGE WITH COUMADIN BECAUSE INR WAS 1.4 ON 12/04/2019 AND INR 2.4 AND 3.5 ON 12/05/2019. DIFLUCAN STOPPED no distress. no gross bleeding. on room air. no vomiting. no dizziness. no headache. no abdominal pain. denies other symptoms Review of Systems Review of Systems: All systems reviewed & are unremarkable except as noted in Subjective Physical Exam Constitutional: comfortable Eyes: PERRL, conjunctivae normal, anicteric sclerae EOM intact bilaterally ENMT: external ear and nose normal, oropharynx normal Neck: normal visual inspection Respiratory: normal respiratory effort Cardiovascular: Rate/Rhythm: regular rate Gastrointestinal (Abdomen): normal bowel sounds, soft, nontender, no hepatosplenomegaly Musculoskeletal: Head/Neck/Chest: normocephalic and head atraumatic Diabetic ulcer of foot (toe) associated with type 2 diabetes mellitus of left foot Neurologic: PERRL, EOMI, accommodation nl, no face palsy, no dysarthria CN's II-XI intact bilaterally Psychiatric: A+Ox3, euthymic affect Results & Data Results & Data ([facility]) Vital Signs (Past 12 Hours) Vital Signs Temp Pulse Pulse Resp BP BP Pulse Ox 12/05/19 15:40 88 12/05/19 15:22 36.7 C 97 H 16 122/75 97 12/05/19 11:36 36.5 C 89 18 145/86 H 98 12/05/19 08:00 36.5 C 108 H 108 H 20 136/92 92 (1) Nausea and vomiting Vomiting Intractability: unspecified Vomiting type: unspecified Qualified Code(s): R11.2 - Nausea with vomiting, unspecified
[2019-12-05 20:20] LABS: INR 4.2 (0.9-1.1); Prothrombin Time 40.7 Seconds (9.0-12.0)
[2019-12-05] MEDS: INSULIN GLARGINE SOLOSTAR 100 UNITS/ML 3 ML PEN SC SCH (20:22)
[2019-12-05] MEDS ORDERED: PHYTONADIONE PO STA (21:34)
[2019-12-05] MEDS ORDERED: PHYTONADIONE 5 MG TAB PO STA (21:37)
[2019-12-06] MEDS: CEFAZOLIN 2000MG 2,000 MG/15 ML SYR IV SCH ×3 (05:53→23:13)
[2019-12-06 06:18] LABS: Hematocrit (blood only) 27.9 % (42-52); Hemoglobin 8.9 g/dL (14.0-18.0); Mean Corpuscular Hemoglobin 27.9 pg (25-34); Mean Corpuscular Hgb Conc 31.9 g/dL (32-36); Mean Corpuscular Volume 87.5 fL (80-100); Mean Platelet Volume 9.2 fL (7.4-10.4); Platelet Count 329 K/uL (130-400); RDW Coefficient of Variation 15.9 % (11.5-14.5); RDW Standard Deviation 51.9 fL (36.4-46.3); Red Blood Count 3.19 M/uL (4.7-6.1); White Blood Count 9.07 K/uL (4.8-10.8)
[2019-12-06 06:25] LABS: INR 2.4 (0.9-1.1); Prothrombin Time 24.6 Seconds (9.0-12.0)
[2019-12-06 06:51] LABS: Albumin Level 1.5 gm/dl (3.4-5.0); BUN Creatinine Ratio 15.8 (10-20); Calcium 7.9 mg/dl (8.5-10.1); Creatinine Clr Calc Pharmacy 50.5 ml/min; Est GFR (African American) 38.2; Potassium 4.2 mmol/L (3.5-5.1)
[2019-12-06 06:54] LABS: Albumin Globulin Ratio 0.4 (0.9-2); Bilirubin,Total 0.2 mg/dl (0.2-1); Globulin 4.2 gm/dl (2.5-4.0); Total Protein 5.7 gm/dl (6.4-8.2)
[2019-12-06 07:05] LABS: Basophils # (auto) 0.03 K/uL (0-0.2); Basophils % (auto) 0.3 %; Eosinophils # (auto) 0.12 K/uL (0-0.5); Eosinophils % (auto) 1.3 %; Immature Granulocytes # (auto) 0.41 K/uL (0.00-0.02); Immature Granulocytes % (auto) 4.5 %; Lymphocytes # (auto) 1.39 K/uL (1.2-3.4); Lymphocytes % (auto) 15.3 %; Monocytes # (auto) 0.96 K/uL (0.11-0.59); Monocytes % (auto) 10.6 %; Neutrophils # (auto) 6.16 K/uL (1.4-6.5)
[2019-12-06] MEDS ORDERED: FLUCONAZOLE 100 MG TAB PO SCH (09:00)
[2019-12-06] MEDS: Heparin IV Standard *NO* Bolus IV SCH (09:06)
[2019-12-06] MEDS: INSULIN ASPART 100 UNITS/ML 3 ML PEN SC SCH ×4 (09:06→21:02)
[2019-12-06] MEDS: HEPARIN SODIUM/DEXTROSE 25,000 UNITS/500 ML BAG IV SCH ×2 (09:08→23:45)
[2019-12-06] MEDS: SUCRALFATE 1 GM/10 ML UDC PO SCH ×4 (09:08→20:59)
[2019-12-06] MEDS: INSULIN GLARGINE SOLOSTAR 100 UNITS/ML 3 ML PEN SC SCH ×2 (09:09→21:01)
[2019-12-06] MEDS: METOPROLOL TARTRATE 50 MG TAB PO SCH ×2 (09:10→21:00)
[2019-12-06] MEDS: ATORVASTATIN 40 MG TAB PO SCH (09:10)
[2019-12-06] MEDS: PANTOprazole 40 MG TAB PO SCH ×2 (09:10→21:00)
--- NOTE | 2019-12-06 12:12 | Orthopedic Progress Note ---
Date of Service December 06, 2019 Assessment & Plan (1) Ulcer of left foot due to type 2 diabetes mellitus: X-rays are consistent with chronic osteomyelitis second toe. I have spoken to Dr. Krishnamurthy about the case. He is amenable to doing a left second toe amputation. We will make him n.p.o. after midnight tonight. Patient is currently on a heparin drip which will need to be stopped 6 hours prior to surgery. Admission and Anticipated Discharge Date Admission Date: November 26, 2019 Subjective Patient seen by Dr. Olivas over the past weekend for osteomyelitis of the left second toe. Patient currently at that time was in the ICU and plans were to initially treat conservatively with follow up with Dr Krishnamurthy. However after discussing the case with medicine service, with the patient is doing quite well at this point in time, we have been asked to reconsider and go ahead with the left second toe amputation. Patient is currently awake and alert. He has no overt complaints at this time and states the toe does not hurt him but has been basically getting inflamed and increasing callus formation with questionable drainage at times for a month or so. He understands that the toe would likely need amputated and is willing to go forward with that. Physical Exam Physical Exam: Left second toe is swollen and erythematous at this time. There is no foul odor or drainage noted. Some callus formation is noted over the toe. Is not overtly tender on palpation. No dressing is needed over the toe at this time. Results & Data ([facility]) Vital Signs (Past 12 Hours) Vital Signs Temp Pulse Pulse Resp BP Pulse Ox 12/06/19 08:00 36.5 C 78 18 142/89 H 96 12/06/19 07:36 73 12/06/19 04:28 36.9 C 89 17 119/76 94 Diagnostic Findings Patient: VINCE MAGALLANES Date: 11/26/19 MR#: [id number]: [address] Acct ID:[id number]: Date: 1960[facility] Zip: [place] [id number] Age: 59Location: 2S Sex: M Room/Bed: [facility] Att Phy: Nasir Myles MDDiagnosis: ABDOMINAL PAIN SPLENIC INFARCTS Carmela Phy: Beverly Spangler, DOService Date: 11/27/19 Fam Phy:Interpreting Phy: Daniel Abreu MD Admit Phy: Roberto Pérez MD Ordering Phy: Nasir Myles MD cc: ~ Left foot 3 views CLINICAL HISTORY: 2nd toe ulceration,R/O Osteo COMPARISON STUDY: None. FINDINGS: Soft tissue swelling within the first and second toes. Abnormal lucency/erosive change within the middle and distal phalanges of the second toe. There appears to be a normal lucencies across the interphalangeal joint of the first toe. Plantar and posterior calcaneal spurs. Vascular calcifications are noted. There appears to be fractures within the head of the proximal to the first toe and distal phalanx of the second toe. IMPRESSION: 1. Abnormal lucency/erosive changes seen at the middle and distal phalanges of the second toe. This is highly suspicious for osteomyelitis. 2. There is also abnormal lucency/erosive change across the interphalangeal joint of the first toe. This can be seen in the setting of an osteomyelitis/septic arthritis. 3. Fractures at the head of the proximal phalanx of the first toe and distal phalanx of the second toe. ACT 112: Negative or not required by law.
--- NOTE | 2019-12-06 14:17 | Cardiology Progress Note ---
Date of Service December 06, 2019 Assessment & Plan (1) Atrial fibrillation: After single dose of 5 mg of Coumadin, the patient's INR increased from 1.4-2.4. INR continue to increase to 4.2, received vitamin K 5 mg last evening, 12/05/2019 at 2153, most recently INR 2.4 this morning. Would wait until INR is less than 2, and then consider heparin bridge. Metoprolol tartrate, increased dose from 50 mg twice daily to 50 mg 3 times daily. He has a working biventricular pacemaker defibrillator, but his heart rate becoming too low, and his blood pressure has stabilized. (2) NICM (nonischemic cardiomyopathy): Likely perhaps slightly intravascularly volume overloaded. Received furosemide 20 mg x 1 12/05/2019, IV fluids now discontinued. Creatinine currently stable. Hold off on further diuretic therapy today to optimize his kidneys for surgery tomorrow. (3) TITA (acute kidney injury): Creatinine stable. (4) Diabetic ulcer of foot associated with type 2 diabetes mellitus, with necrosis of bone: MSSA bacteremia, repeat cultures negative. IV cefazolin. Patient had significant sepsis related illness, hypotension earlier this hospital stay.I belive this is the best opportunity we have had in terms of operative intervention for the diabetic foot wound/osteomyelitis, proceeding to the operating room. Subjective Chief complaint: Follow-up nonischemic cardiomyopathy, atrial fibrillation with rapid ventricular response Subjective: Patient feeling improved today, he states that the abdominal "fullness "that he experienced yesterday is better, he feels like the swelling in his hands and his legs has improved. For seen this morning, atrial fibrillation with rates in the 150 bpm range noted when he ambulated to the bathroom, and shortly after returning to bed, currently on telemetry as of 2 8 PM, atrial fibrillation with occasional ventricular pacing in the range of 90 to 110 bpm noted. He has no subjective palpitations. Physical Exam Physical Exam: Temp Pulse Resp BP Pulse Ox 36.8 C 77 19 121/80 95 12/06/19 11:46 12/06/19 11:46 12/06/19 11:46 12/06/19 11:46 12/06/19 11:46 Constitutional: WD/WN, vitals as above Respiratory: normal respiratory effort, lungs clear to auscultation Cardiovascular: Rate/Rhythm: + tachycardic and + irregularly irregular Extremities: + edema (1+ hand, lower extremity edema) Gastrointestinal (Abdomen): normal bowel sounds, soft, nontender, no hepatosplenomegaly Neurologic: PERRL, EOMI, accommodation nl, no face palsy, no dysarthria Results & Data Vital Signs (Past 12 Hours) Vital Signs Temp Pulse Pulse Resp BP Pulse Ox 12/06/19 11:46 36.8 C 77 19 121/80 95 12/06/19 08:00 36.5 C 78 18 142/89 H 96 12/06/19 07:36 73 12/06/19 04:28 36.9 C 89 17 119/76 94 Laboratory Results Cardiac Enzymes 12/06/19 Range/Units 05:40 AST 24 (15-37) U/L Coagulation 12/05/19 12/06/19 Range/Units 19:50 05:40 PT 40.7 H 24.6 H (9.0-12.0) Seconds CBC 12/06/19 Range/Units 05:40 WBC 9.07 (4.8-10.8) K/uL RBC 3.19 L (4.7-6.1) M/uL Hgb 8.9 L (14.0-18.0) g/dL Hct 27.9 L (42-52) % Plt Count 329 (130-400) K/uL Neut # (Auto) 6.16 (1.4-6.5) K/uL Lymph # (Auto) 1.39 (1.2-3.4) K/uL Larue # (Auto) 0.96 H (0.11-0.59) K/uL Eos # (Auto) 0.12 (0-0.5) K/uL Baso # (Auto) 0.03 (0-0.2) K/uL Comprehensive Metabolic Panel 12/06/19 Range/Units 05:40 Sodium 140 (136-145) mmol/L Potassium 4.2 (3.5-5.1) mmol/L Chloride 109 H (98-107) mmol/L Carbon Dioxide 25 (21-32) mmol/L BUN 34 H (7-18) mg/dl Creatinine 2.15 H (0.6-1.4) mg/dl Glucose 120 H (70-99) mg/dl Calcium 7.9 L (8.5-10.1) mg/dl AST 24 (15-37) U/L ALT 11 L (12-78) U/L Alkaline Phosphatase 93 (45-117) U/L Total Protein 5.7 L (6.4-8.2) gm/dl Albumin 1.5 L (3.4-5.0) gm/dl Intake and Output 12/05/19 12/06/19 12/06/19 22:59 06:59 14:59 Intake Total 665 / 1323.8 150 / 1323.8 Output Total 550 / 1350 550 / 1350 Balance 115 / -26.2 -400 / -26.2 Intake: IV 390 / 518.8 KCl 30 Meq Sodium Bicarbonate 8 390 / 390 .4% 75 Meq In 1/2 Nss 1,000 ml @ 80 mls/hr IV .[id number] [facility] Rx# :[id number] Oral 275 / 805 150 / 805 Output: Urine Amount (Catheter) 550 / 1350 550 / 1350 Bauer/Indwelling 550 / 1350 550 / 1350 Other: Weight 119 kg Medications Administered Current Inpatient Medications Acetaminophen (Tylenol) 650 mg PO Q4H PRN PRN Reason: Pain or Fever Stop: 12/26/19 16:14 Al Hydrox/Mg Hydrox/Simethicone (Maalox) 15 ml PO Q4H PRN PRN Reason: Dyspepsia Stop: 12/26/19 16:14 Atorvastatin Calcium (Lipitor) [facility] [place]: 01/01/20 08:59 Last Admin: 12/06/19 09:10 Dose: 40 mg Documented by: Dextrose (Dextrose 50%) 25 - 50 ml IV UD PRN; Protocol PRN Reason: Hypoglycemia Protocol Stop: 12/26/19 16:14 Glucagon (Glucagen) 1 mg SQ UD PRN; Protocol PRN Reason: Hypoglycemia Protocol Stop: 12/26/19 16:14 Glucose (Dex4 Glucose) 4 - 8 tabs PO UD PRN; Protocol PRN Reason: Hypoglycemia Protocol Stop: 12/26/19 16:14 Glucose (Glucose 40%) 15 - 30 gm PO UD PRN; Protocol PRN Reason: Hypoglycemia Protocol Stop: 12/26/19 16:14 Heparin Sodium (Beef Lung) (Heparin Sod 10 Unit/Ml Flush) 5 ml FLUSH PRN PRN PRN Reason: Flush Stop: 12/29/19 12:58 Last Admin: 11/29/19 13:24 Dose: 5 ml Documented by: Hydromorphone HCl (Dilaudid) 0.5 mg IV Q6 PRN PRN Reason: Severe Pain Stop: 12/10/19 16:14 Last Admin: 11/29/19 16:43 Dose: 0.5 mg Documented by: Cefazolin Sodium (Ancef 2000mg) 2,000 mg in 15 mls @ 2.5 mls/min IV Q8H [facility]; Protocol Stop: 12/15/19 13:59 Last Admin: 12/06/19 14:05 Dose: 2.5 mls/min Documented by: Heparin Sodium/Dextrose (Heparin Sodium/Dextrose) 25,000 units in 500 mls @ 34 mls/hr IV .[id number] [facility]; Protocol Stop: 01/05/20 08:29 Last Admin: 12/06/19 09:08 Dose: 1,700 units/hr, 34 mls/hr Documented by: Insulin Aspart (Novolog Flexpen) 0 units SC ACHS [facility]; Protocol Stop: 01/02/20 16:29 Last Admin: 12/06/19 12:00 Dose: 9 units Documented by: Insulin Glargine (Lantus Solostar Pen) 0 units SC BID [facility]; Protocol Stop: 01/04/20 20:59 Last Admin: 12/06/19 09:09 Dose: 5 units Documented by: Metoprolol Tartrate (Lopressor) 50 mg PO BID YULI Stop: 01/03/20 20:59 Last Admin: 12/06/19 09:10 Dose: 50 mg Documented by: Miscellaneous (Carbohydrates For Hypoglycemia) 15 - 30 gm PO UD PRN PRN Reason: Hypoglycemia Protocol Stop: 12/26/19 16:14 Miscellaneous Information (Consult Glycemic Management Pharmacy) 1 ea N/A UD PRN PRN Reason: Consult Stop: 12/28/19 10:07 Miscellaneous Information (Pharmacy Consult) 1 ea N/A UD PRN PRN Reason: Consult Stop: 12/30/19 10:38 Ondansetron HCl (Zofran) 4 mg IV Q4H PRN PRN Reason: Nausea Stop: 12/28/19 06:00 Last Admin: 11/29/19 16:43 Dose: 4 mg Documented by: Oxycodone HCl (Roxicodone Immediate Rel) 5 mg PO Q6H PRN PRN Reason: Moderate Pain Stop: 12/10/19 16:49 Last Admin: 11/30/19 11:26 Dose: 5 mg Documented by: Pantoprazole Sodium (Protonix) 40 mg PO BID [facility] Stop: 01/24/20 09:01 Last Admin: 12/06/19 09:10 Dose: 40 mg Documented by: Sucralfate (Carafate) 1 gm PO QID [facility] Stop: 12/27/19 12:59 Last Admin: 12/06/19 12:02 Dose: 1 gm Documented by:
[2019-12-06 14:29] LABS: INR 1.7 (0.9-1.1); Partial Thromboplastin Ratio 2.5; Prothrombin Time 17.2 Seconds (9.0-12.0)
--- NOTE | 2019-12-06 15:13 | Hospitalist Progress Note ---
Date of Service December 06, 2019 Assessment & Plan (1) Septic shock: Type 2 Diabetes Mellitus with toe ulcer and osteomyelitis of toe of left foot -septic shock secondary to MSSA bacteremia, Left toe culprit nonhealing wound due to DM type 2, with osteomyelitis; Patient is a 59-year-old male with history of nonischemic cardiomyopathy, status post AICD pacemaker placement, diabetes type 2, hypertension, presented with nausea vomiting abdominal pain and required ICU admission for for septic shock -on this stay, patient was transitioned from Dapto and Zosyn to cefazolin IV by day 2 for MSSA bacteremia, continue the IV cefazolin -as patient has improved, hospitalist have re-consulted orthopedics as of 12/05/2019 to consider performing toe amputation on this hospital stay for definitive treatment of osteomyelitis with concurrent IV antibiotics. orthopedics plans for operation on 12/07/2019 (2) Splenic infarct: -as noted on admission CT scan -Likely secondary to above versus embolic secondary to underlying Atrial fibrillation -patient has been systemically anticoagulated during this hospital stay in general (3) Duodenitis: Esophagitis -as noted on admission CT scan -s/p EGD with esophagitis as well as duodenitis -continue p.o. Protonix and carafate -patient was on Diflucan, and is stopped on 12/04/2019 because it affected the INR while patient on wafrain with IV heparin bridge (4) Nausea and vomiting: -resolved (5) HTN (hypertension): -septic shock resolved, on Metoprolol (6) NICM (nonischemic cardiomyopathy): (7) CHF (congestive heart failure): Atrial Fibrillation Presence of ICD -Chronic Systolic Congestive heart failure and s/p ICD placement in July 2019. -Pacemaker interrogation on this admission with appropriate pacemaker function as per Dr. Reed -on metoprolol, continue -given IV Lasix 20 mg IV on 12/05/2019 because of volume overload from treating acute kidney injury with IV fluids on this admission, stop the IV fluids on 12/05/2019 -12/05/2019 to 12/06/2019 update: THE DIFLUCAN HAS INCREASED THE INR WHILE PATIENT WAS ON IV HEPARIN BRIDGE WITH COUMADIN with INR rising rapidly on 12/05/2019 - systemic anticoagulation was temporarily held and when INR then hit 4.2 on 11/10/19 night time test and the patient was given vitamin K IV by criminal analyst. INR is 1.7 as of 12/06/2019. IV heparin is continued for now (8) TITA (acute kidney injury): -present on admission -creatinine has improved and the IV fluids with bicarbonate is stopped on 12/05/2019 (9) DM (diabetes mellitus): Hba1c 7.8 -continue current insulin subcutaneously (10) DVT prophylaxis: -on IV heparin, IV heparin will need to be held on 12/07/2019 for orthopedic procedure of toe amputation Admission and Anticipated Discharge Date Admission Date: November 26, 2019 Subjective Patient breathing on room air. He does not feel shortness of breath. he has able to ambulate today and had episode of tachycardia when ambulating. heart rates stable at rest. patient on IV heparin drip. he agrees to plans of toe amputation of left foot to treat the osteomyelitis while on IV antibiotics. plans for toe amputation is on 12/07/2019. no abdominal pain. no nausea. no vomiting. no dizziness. no headache Review of Systems Review of Systems: All systems reviewed & are unremarkable except as noted in Subjective Physical Exam Constitutional: comfortable Eyes: PERRL, conjunctivae normal, anicteric sclerae EOM intact bilaterally ENMT: external ear and nose normal, oropharynx normal Neck: normal visual inspection Respiratory: normal respiratory effort Cardiovascular: Rate/Rhythm: regular rate Gastrointestinal (Abdomen): normal bowel sounds, soft, nontender, no hepatosplenomegaly Musculoskeletal: Head/Neck/Chest: normocephalic and head atraumatic Neurologic: PERRL, EOMI, accommodation nl, no face palsy, no dysarthria CN's II-XI intact bilaterally Psychiatric: A+Ox3, euthymic affect Results & Data Results & Data ([facility]) Vital Signs (Past 12 Hours) Vital Signs Temp Pulse Pulse Resp BP Pulse Ox 12/06/19 11:46 36.8 C 77 19 121/80 95 12/06/19 08:00 36.5 C 78 18 142/89 H 96 12/06/19 07:36 73 12/06/19 04:28 36.9 C 89 17 119/76 94 (1) Nausea and vomiting Vomiting Intractability: unspecified Vomiting type: unspecified Qualified Code(s): R11.2 - Nausea with vomiting, unspecified
[2019-12-06 20:57] LABS: Partial Thromboplastin Ratio 2.3
[2019-12-06 20:58] LABS: Partial Thromboplastin Time 65.3 Seconds (21.0-31.0)
[2019-12-07] MEDS: CEFAZOLIN 2000MG 2,000 MG/15 ML SYR IV SCH ×3 (06:49→22:19)
[2019-12-07 07:52] LABS: Basophils # (auto) 0.03 K/uL (0-0.2); Basophils % (auto) 0.3 %; Eosinophils # (auto) 0.13 K/uL (0-0.5); Eosinophils % (auto) 1.4 %; Hematocrit (blood only) 27.8 % (42-52); Immature Granulocytes # (auto) 0.15 K/uL (0.00-0.02); Immature Granulocytes % (auto) 1.6 %; Lymphocytes # (auto) 1.49 K/uL (1.2-3.4); Lymphocytes % (auto) 15.8 %; Mean Corpuscular Hgb Conc 32.4 g/dL (32-36); Mean Corpuscular Volume 86.6 fL (80-100); Mean Platelet Volume 8.8 fL (7.4-10.4); Monocytes # (auto) 0.61 K/uL (0.11-0.59); Monocytes % (auto) 6.5 %; Neutrophils # (auto) 7.03 K/uL (1.4-6.5); Neutrophils % (auto) 74.4 %; Platelet Count 265 K/uL (130-400); RDW Coefficient of Variation 15.9 % (11.5-14.5); RDW Standard Deviation 50.2 fL (36.4-46.3); Red Blood Count 3.21 M/uL (4.7-6.1); White Blood Count 9.44 K/uL (4.8-10.8)
--- NOTE | 2019-12-07 07:56 | Hospitalist Progress Note ---
Date of Service December 07, 2019 Assessment & Plan (1) Septic shock: Type 2 Diabetes Mellitus with toe ulcer and osteomyelitis of toe of left foot -septic shock secondary to MSSA bacteremia, Left toe culprit nonhealing wound due to DM type 2, with osteomyelitis; Patient is a 59-year-old male with history of nonischemic cardiomyopathy, status post AICD pacemaker placement, diabetes type 2, hypertension, presented with nausea vomiting abdominal pain and required ICU admission for for septic shock -on this stay, patient was transitioned from Dapto and Zosyn to cefazolin IV by day 2 for MSSA bacteremia, continue the IV cefazolin -as patient has improved, hospitalist have re-consulted orthopedics as of 12/05/2019 to consider performing toe amputation on this hospital stay for definitive treatment of osteomyelitis with concurrent IV antibiotics. orthopedics plans for operation on 12/07/2019 (2) Splenic infarct: -as noted on admission CT scan -Likely secondary to above versus embolic secondary to underlying Atrial fibrillation -patient has been systemically anticoagulated during this hospital stay in general (3) Duodenitis: Esophagitis -as noted on admission CT scan -s/p EGD with esophagitis as well as duodenitis -continue p.o. Protonix and carafate -patient was on Diflucan, and is stopped on 12/04/2019 because it affected the INR while patient on wafrain with IV heparin bridge (4) Nausea and vomiting: -resolved (5) HTN (hypertension): -septic shock resolved, on Metoprolol (6) NICM (nonischemic cardiomyopathy): (7) CHF (congestive heart failure): Atrial Fibrillation Presence of ICD -Chronic Systolic Congestive heart failure and s/p ICD placement in July 2019. -Pacemaker interrogation on this admission with appropriate pacemaker function as per Dr. Reed -on metoprolol, continue -given IV Lasix 20 mg IV on 12/05/2019 because of volume overload from treating acute kidney injury with IV fluids on this admission, stop the IV fluids on 12/05/2019 -12/05/2019 to 12/06/2019 update: THE DIFLUCAN HAS INCREASED THE INR WHILE PATIENT WAS ON IV HEPARIN BRIDGE WITH COUMADIN with INR rising rapidly on 12/05/2019 - systemic anticoagulation was temporarily held and when INR then hit 4.2 on 11/10/19 night time test and the patient was given vitamin K IV by hearing therapy teacher. INR is 1.7 as of 12/06/2019. IV heparin is continued up to 6:30 AM on 12/07/2019 while awaiting going to operating room. INR on 12/07/2019 is pending results (8) TITA (acute kidney injury): -present on admission -creatinine has improved and the IV fluids with bicarbonate is stopped on 12/05/2019 (9) DM (diabetes mellitus): Hba1c 7.8 -continue current insulin subcutaneously (10) DVT prophylaxis: -IV heparin stopped at 6:30 AM on 12/07/2019 for orthopedic procedure of toe amputation Admission and Anticipated Discharge Date Admission Date: November 26, 2019 Subjective patient breathing on room air. denies shortness of breath. no acute telemetry events. he is off the IV heparin since 6:30 AM. He remains NPO as he is awaiting for orthopedic service to take him to operating room for toe amputation of left foot. no nausea. no vomiting. no headache. no dizziness. Review of Systems Review of Systems: All systems reviewed & are unremarkable except as noted in Subjective Physical Exam Constitutional: comfortable Eyes: PERRL, conjunctivae normal, anicteric sclerae EOM intact bilaterally ENMT: external ear and nose normal, oropharynx normal Neck: normal visual inspection Respiratory: normal respiratory effort Cardiovascular: Rate/Rhythm: regular rate Gastrointestinal (Abdomen): normal bowel sounds, soft, nontender, no hepatosplenomegaly Musculoskeletal: Head/Neck/Chest: normocephalic and head atraumatic Neurologic: PERRL, EOMI, accommodation nl, no face palsy, no dysarthria CN's II-XI intact bilaterally Psychiatric: A+Ox3, euthymic affect Results & Data Results & Data ([facility]) Vital Signs (Past 12 Hours) Vital Signs Temp Pulse Pulse Pulse Resp BP Pulse Ox 12/07/19 07:44 36.9 C 102 H 17 131/86 95 12/07/19 02:32 37.0 C 81 17 131/79 95 12/06/19 23:33 37.0 C 85 18 126/82 96 12/06/19 21:57 100 H (1) Nausea and vomiting Vomiting Intractability: unspecified Vomiting type: unspecified Qualified Code(s): R11.2 - Nausea with vomiting, unspecified
[2019-12-07 08:02] LABS: INR 1.3 (0.9-1.1); Prothrombin Time 13.1 Seconds (9.0-12.0)
[2019-12-07] MEDS: INSULIN ASPART 100 UNITS/ML 3 ML PEN SC SCH ×4 (08:58→21:28)
[2019-12-07] MEDS: ATORVASTATIN 40 MG TAB PO SCH (08:59)
[2019-12-07] MEDS: METOPROLOL TARTRATE 50 MG TAB PO SCH ×3 (08:59→21:25)
[2019-12-07] MEDS: PANTOprazole 40 MG TAB PO SCH ×2 (09:00→21:25)
[2019-12-07] MEDS: SUCRALFATE 1 GM/10 ML UDC PO SCH ×4 (09:00→21:24)
--- NOTE | 2019-12-07 13:07 | Pharmacy Report ---
Pharmacy Glycemic Short Note 2 - Date of Service December 07, 2019 - Glycemic Short BSG Results (Last 24 hours): 12/06/19 12/06/19 12/07/19 16:25 20:24 07:30 POC Glucose 189 H 196 H 125 H 12/07/19 11:30 POC Glucose 118 H Outpatient Anti-diabetic Regimen: * Lantus 20 units SC HS * Metformin * Dulaglutide * Canagliflozin * A1c = 7.8 % on 11/27/19 INPATIENT INSULIN REGIMEN AND CAUSES OF INSULIN RESISTANCE: ASSESSMENT: 12/06 * Patient for left toe amputation today * BSGs stable on ~45 units of insulin per day * Will adjust basal insulin to qPM instead of BID since this is how patient takes it at home 12/04: * Patient's BSG decreased yesterday evening into this [id number] * For this reason, basal insulin was held last evening and this morning * Patient received 27 units total of insulin yesterday (~ 60% decrease in total daily dose as compared to previous three days) * Received 20 units basal yesterday and 7 units bolus * BSGs ranged 79-134 mg/dL * Believe patient may have been receiving too much basal insulin as regimen was basal heavy (~ 75% basal and 25% bolus) * Home regimen was 20 units of Lantus at bedtime with most recent A1c of 7.8%; has used 50 units of Lantus daily for the past 2 days * Fasting BSG this AM was 93 mg/dL, again basal insulin held this AM * Lunchtime BSG was elevated secondary to holding basal regimen x 2 doses, gave 10 units Lantus with lunch and will decrease lantus scale this evening * Will also reduce CF to prevent hypoglycemia 12/03: * 59 yo M with sepsis/MSSA bacteremia 2nd osteomyelitis complicated by splenic infarct with new onset chest pain and wide-complex tachyarrhythmia prompting labor delivery specialist evaluation on 11/27 * Patient received a total of 67 units of insulin yesterday * 50 units Basal * 17 units Bolus * BSGs ranged 156 - 192 mg/dL, acceptable * Fasting BSG improved today to 102 mg/dL, continue with current basal scale * Post-prandial BSGs acceptable, no change in bolus insulin PLAN FOR INPATIENT GLYCEMIC CONTROL: * Continue to hold outpatient oral diabetes medications * Basal insulin - adjust to qPM only * Lantus 20 units qPM * Bolus insulin - tighten goal range for non-critically ill patient * Novolog ACHS * Goal range: 110-140 mg/dL * Correction factor: 20 mg/dL/unit * Carb ratio: 1 unit for every 6 g CHO
--- NOTE | 2019-12-07 14:45 | Cardiology Progress Note ---
Date of Service December 07, 2019 Assessment & Plan (1) Atrial fibrillation: (2) NICM (nonischemic cardiomyopathy): (3) Presence of biventricular implantable cardioverter-defibrillator (ICD): (4) Diabetic ulcer of foot associated with type 2 diabetes mellitus, with necrosis of bone: Patient for operative debridement/amputation of the toe due to diabetic foot ulcer/osteomyelitis today. If renal function remains stable tomorrow, consider cautious diuretic therapy, perhaps starting with furosemide 20 mg IV, q. 7 AM and 1400 Continue to monitor INR, as his INR hit quickly become supratherapeutic after 1 dose in the setting of recent fluconazole administration and renal insufficiency. Heparin bridge while INR is less than 2. Continue current dose of metoprolol. Had been on carvedilol prehospital. Dr Forbes to assume rounding on 12/07. Subjective Bennett Lopez is a 59-year-old male seen in follow-up of atrial fibrillation and nonischemic cardiomyopathy. I had seen him this morning, at which time atrial fibrillation with relatively improved ventricular rates noted in the range of 80 to 100 bpm. His respiratory status was stable. With no complaints. His previously noted abdominal discomfort that prompted his hospital stay had resolved. Physical Exam Physical Exam: Temp Pulse Resp BP Pulse Ox 37.0 C 80 17 124/80 94 12/07/19 11:51 12/07/19 11:51 12/07/19 11:51 12/07/19 11:51 12/07/19 11:51 Constitutional: WD/WN, vitals as above Respiratory: normal respiratory effort, lungs clear to auscultation Cardiovascular: Rate/Rhythm: + irregularly irregular Heart Sounds: no murmur Vessels: no JVD Extremities: + edema (1+ lower extremity, abdominal edema) Gastrointestinal (Abdomen): normal bowel sounds, soft, nontender, no hepatosplenomegaly Neurologic: PERRL, EOMI, accommodation nl, no face palsy, no dysarthria Results & Data Vital Signs (Past 12 Hours) Vital Signs Temp Pulse Pulse Resp BP Pulse Ox 12/07/19 11:51 37.0 C 80 17 124/80 94 12/07/19 08:00 66 12/07/19 07:44 36.9 C 102 H 17 131/86 95 Laboratory Results Coagulation 12/06/19 12/07/19 Range/Units 20:27 07:34 PT 13.1 H (9.0-12.0) Seconds APTT 65.3 H* (21.0-31.0) Seconds CBC 12/07/19 Range/Units 07:34 WBC 9.44 (4.8-10.8) K/uL RBC 3.21 L (4.7-6.1) M/uL Hgb 9.0 L (14.0-18.0) g/dL Hct 27.8 L (42-52) % Plt Count 265 (130-400) K/uL Neut # (Auto) 7.03 H (1.4-6.5) K/uL Lymph # (Auto) 1.49 (1.2-3.4) K/uL [place] # (Auto) 0.61 H (0.11-0.59) K/uL Eos # (Auto) 0.13 (0-0.5) K/uL Baso # (Auto) 0.03 (0-0.2) K/uL Intake and Output 12/06/19 12/07/19 12/07/19 22:59 06:59 14:59 Intake Total 513.866 / 1519.433 289.600 / 1519.433 Output Total 451 / 1302 450 / 1302 Balance 62.866 / 217.433 -160.400 / 217.433 Intake: IV 213.866 / 694.433 289.600 / 694.433 HEPARIN SODIUM/DEXTROSE 25,000 213.866 / 694.433 289.600 / 694.433 units In 500 ml @ 1,600 UNITS/ HR 32 mls/hr IV .[id number] [facility] Rx #:[id number] Oral 300 / 825 Output: Urine Amount (Catheter) 450 / 1300 450 / 1300 Bauer/Indwelling 450 / 1300 450 / 1300 # Bowel Movements Other: Other Intake Source NPO Weight 135.5 kg
[2019-12-07] MEDS ORDERED: fentaNYL citrate 100 MCG/2 ML VIAL ONE (15:22)
[2019-12-07] MEDS ORDERED: MIDAZOLAM HCL 1 MG/ML 2ML VIAL ONE (15:22)
[2019-12-07] MEDS ORDERED: PROPOFOL IV EMULSION 10 MG/ML 20 ML VIAL IV ONE ×3 (15:22→17:13)
[2019-12-07] MEDS ORDERED: LIDOCAINE HCL 2% 2 ML VIAL/AMP(20MG/ML) INFIL ONE (15:22)
--- NOTE | 2019-12-07 15:22 | Anesthesiology Consultation ---
Date of Service December 07, 2019 Assessment & Plan (1) Encounter for pre-operative examination: Chart Review Chart Review: Acceptable Risk for Surgery Consults Requested none ASA ASA4 Proposed Anesthesia Anesthesia Type: MAC Risk / Benefits Reviewed With: PT / POA / Parent / Guardian, Accepts Plan and Informed Consent Obtained History Surgery Operation Date: 11/27/19 08:30 Proposed Procedures p Esophagogastroduodenoscopy Dr. Lexi Elliott M.D. Operation Date: 11/28/19 06:30 Proposed Procedures p Cardiac Heart Alert - Dimitrios Liz MD Operation Date: 12/07/19 12:30 Proposed Procedures p Left 2nd Toe Amputation - Austyn Krishnamurthy DO Height/Weight Height: 6 ft Weight: 135.5 kg Allergies Allergy/AdvReac Type Severity Reaction Status Date / Time No Known Allergies Allergy Unverified 11/26/19 10:57 Medications Home Medications Medication Instructions Recorded Confirmed Last Taken aspirin [Aspir-81] 81 mg PO QAM 11/26/19 11/26/19 11/26/19 atorvastatin 80 mg PO QAM 11/26/19 11/26/19 11/26/19 canagliflozin [Invokana] 300 mg PO QAM 11/26/19 11/26/19 11/26/19 dulaglutide [Trulicity] 1.5 mg SUBCUT MOLINA 11/26/19 11/26/19 11/18/19 furosemide 20 mg PO BID 11/26/19 11/26/19 11/26/19 insulin glargine [Lantus Solostar 20 unit SUBCUT HS 11/26/19 11/26/19 11/25/19 U-100 Insulin] metformin 1,000 mg PO BIDM 11/26/19 11/26/19 11/26/19 [id number]-vit K-lycop 1 tab PO QAM 11/26/19 11/26/19 11/26/19 [Men's Multivitamin] nitroglycerin [Nitrostat] 0.4 mg SUBLINGUAL UD PRN 11/26/19 11/26/19 Unknown sacubitril-valsartan [Entresto] 1 tab PO BID 11/26/19 11/26/19 11/26/19 Active Medications Generic Name Dose Route Start Last Admin Trade Name Freq PRN Reason Stop Dose Admin Atorvastatin Calcium 40 mg 12/02/19 09:00 12/07/19 08:59 Lipitor PO 01/01/20 08:59 40 mg QAM YULI Administration Heparin Sodium (Beef Lung) 5 ml 11/29/19 12:59 11/29/19 13:24 Heparin Sod 10 Unit/Ml Flush FLUSH 12/29/19 12:58 5 ml PRN PRN Administration Flush Hydromorphone HCl 0.5 mg 11/26/19 16:15 11/29/19 16:43 Dilaudid IV 12/10/19 16:14 0.5 mg Q6 PRN Administration Severe Pain Cefazolin Sodium 2,000 mg in 15 mls @ 2.5 mls/min 12/04/19 14:00 12/07/19 13:11 Ancef 2000mg IV 12/15/19 13:59 2.5 mls/min Q8H YULI Administration Protocol Insulin Aspart 0 units 12/03/19 16:30 12/07/19 12:04 Novolog Flexpen SC 01/02/20 16:29 Not Given ACHS [facility] Protocol Metoprolol Tartrate 50 mg 12/06/19 21:00 12/07/19 13:10 Lopressor PO 01/05/20 20:59 50 mg TID YULI Administration Ondansetron HCl 4 mg 11/28/19 06:01 11/29/19 16:43 Zofran IV 12/28/19 06:00 4 mg Q4H PRN Administration Nausea Oxycodone HCl 5 mg 11/26/19 16:50 11/30/19 11:26 Roxicodone Immediate Rel PO 12/10/19 16:49 5 mg Q6H PRN Administration Moderate Pain Pantoprazole Sodium 40 mg 11/29/19 21:00 12/07/19 09:00 Protonix PO 01/24/20 09:01 40 mg BID YULI Administration Sucralfate 1 gm 11/27/19 13:00 12/07/19 13:08 Carafate PO 12/27/19 12:59 1 gm QID YULI Administration NPO Date Last Intake of Fluids: 12/07/19 Time Last Intake of Fluids: 00:00 Date Last Intake of Solids: 12/06/19 Time Last Intake of Solids: 16:00 Past Medical History Medical History Anemia Cardiomyopathy Diabetic neuropathy Duodenitis Dyslipidemia Heart failure Hypertension Hyponatremia Injury of left shoulder (Inactive) 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 Lyme disease Obesity Renal insufficiency Splenic infarct (Acute) Work related injury (Inactive) Exercise / Class Metabolic Activity III < 4 Walking/Shop/Light housework Past Family History Family History Father Heart disease Past Surgical History Surgical History History of colonoscopy History of esophagogastroduodenoscopy (EGD) Presence of biventricular implantable cardioverter-defibrillator (ICD) Status post amputation of toe of right foot [place] teeth extracted Past Anesthesia History No Hx of Anesthesia Complications and No Family Hx of Anesthesia Complications History of PONV No Hx of PONV and No Hx of Motion Sickness Social History Smoking Status: Never smoker Hx Alcohol Use: No Hx Substance Use: No substance use type: does not use Physical Exam Vital Signs Last Vital Signs Temp 98.6 F 12/07/19 11:51 Pulse 80 12/07/19 11:51 Resp 17 12/07/19 11:51 BP 124/80 12/07/19 11:51 Pulse Ox 94 12/07/19 11:51 Constitutional + morbidly obese ENMT Mouth: no dentition abnormality Thyromental Distance: > or= 3.5 Finger Breadths Mallampati Class: III Neck normal visual inspection Respiratory normal respiratory effort Auscultation: lungs clear to auscultation bilaterally Cardiovascular Rate/Rhythm: regular rate and regular rhythm Testing Laboratory Results 12/07/19 07:34 12/06/19 05:40 PT 13.1 Seconds (9.0-12.0) H 12/07/19 07:34 INR 1.3 (0.9-1.1) H 12/07/19 07:34 APTT 65.3 Seconds (21.0-31.0) H* 12/06/19 20:27 Hemoglobin A1c 7.8 % (4.5-5.6) H 11/27/19 06:40 Urine Color Dark Yellow 11/29/19 10:05 Urine Appearance Turbid (Clear) A 11/29/19 10:05 Urine pH 5.0 (4.5-7.5) 11/29/19 10:05 Ur Specific [place] 1.035 (1.000-1.030) H 11/29/19 10:05 Urine Protein 2+ (Negative) H 11/29/19 10:05 Urine Glucose (UA) Trace (Negative) H 11/29/19 10:05 Urine Ketones Trace (Negative) H 11/29/19 10:05 Urine Nitrite Negative (Negative) 11/29/19 10:05 Ur Leukocyte Esterase 1+ (Negative) H 11/29/19 10:05 Urine WBC (Auto) >30 /hpf (0-5) H 11/29/19 10:05 Urine RBC (Auto) >30 /hpf (0-4) H 11/29/19 10:05 U Hyaline Cast (Auto) 1-5 /lpf (0-5) 11/29/19 10:05 U Epithel Cells (Auto) >30 /lpf (0-5) H 11/29/19 10:05 Urine Bacteria (Auto) 1+ (Negative) H 11/29/19 10:05 Blood Type O Negative 12/06/19 05:40 Antibody Screen NEGATIVE 12/06/19 05:40 11/28/19 11:23 Aerobic Blood Culture - Final Blood No growth in Aerobic bottle after 5 days. Anaerobic Blood Culture - Final No growth in Anaerobic bottle after 5 days. 11/28/19 11:31 Aerobic Blood Culture - Final Blood No growth in Aerobic bottle after 5 days. Anaerobic Blood Culture - Final No growth in Anaerobic bottle after 5 days. 11/27/19 12:01 Fungal Smear - Final Throat Fungal Culture - Final No yeast or fungus Isolated. 11/27/19 15:40 Urine Culture - Final Urine,Clean Catch No growth - less than 1,000 colonies/mL. 11/26/19 13:45 Aerobic Blood Culture - Final Blood Staphylococcus aureus Anaerobic Blood Culture - Final Staphylococcus aureus 11/26/19 13:45 Aerobic Blood Culture - Final Blood Staphylococcus aureus Anaerobic Blood Culture - Final Staphylococcus aureus 12/07/19 12/07/19 12/07/19 15:07 11:30 07:30 POC Glucose 127 H 118 H 125 H Electrocardiogram Date: 12/01/19 Atrial fibrillation (device interrogated), rate 115 bpm Bi V pacing Fusion beats PVC's Abnormal ECG When compared with ECG of 30-NOV-2019 08:43, No significant change was found Confirmed by Connor Schumacher ([id number]) on 12/01/2019 12:15:44 PM Chest X-Ray Date: 11/28/19 FINDINGS: Left subclavian biventricular pacer/AICD is in place. There is moderate cardiomegaly without evidence for pulmonary edema. Mild elevation of the right hemidiaphragm is unchanged. There is no pneumothorax. There is a possible small left pleural effusion with mild left basilar opacity. This could be artifactual. IMPRESSION: 1. Moderate cardiomegaly without evidence for pulmonary edema. 2. Possible small left pleural effusion with left basilar opacity. Radiographic follow-up is recommended. Echocardiogram Date: 11/28/19 Mild concentric LVH EF is around 40% RV systolic function is normal LA and RA size are normal AV sclerosis mild without significant AV stenosis
[2019-12-07] MEDS ORDERED: ATROPINE SULFATE 0.1 MG/ML 10ML SYR IV PRN (15:34)
[2019-12-07] MEDS ORDERED: fentaNYL citrate 100 MCG/2 ML VIAL IV PRN (15:34)
[2019-12-07] MEDS ORDERED: ePHEDrine sulfate 50 MG/ML AMP IV PRN (15:34)
[2019-12-07] MEDS ORDERED: ONDANSETRON INJ 2 MG/ML 2 ML VIAL IV PRN ×2 (15:34→18:17)
[2019-12-07] MEDS ORDERED: ONDANSETRON INJ 2 MG/ML 2 ML VIAL ONE (15:42)
[2019-12-07] MEDS ORDERED: BACITRACIN INJ 50,000 UNIT VIAL ONE (16:07)
--- NOTE | 2019-12-07 16:28 | History & Physical Bridge Note ---
Date of Service December 07, 2019 History & Physical Bridge Note I have examined the patient, reviewed the History & Physical and in the interval since the performance of the History & Physical I have noted the following changes of clinical significance: Will require left second toe amputation due to chronic, worsening osteomyelitis.
[2019-12-07] MEDS ORDERED: BUPIVACAINE 0.5 % 5 MG/1 ML MPF 30ML VIAL ONE (16:43)
--- NOTE | 2019-12-07 17:19 | Post Operative Brief Note ---
Immediate Post Op Note v1 Date of Surgery December 07, 2019 Pre & Post Diagnosis Operation Date: 11/27/19 08:30 Pre-Op Diagnosis: ABDOMINAL PAIN SPLENIC INFARCTS Post-Op Diagnosis: gastritis, esophagitis, duodenitis with clean based ulcer, with bx Operation Date: 11/28/19 06:30 <No data on this case meets the specified criteria> Operation Date: 12/07/19 12:30 Pre-Op Diagnosis: Left 2nd Toe Osteomyelitis, insulin requiring diabetes mellitus, neuropathy Post-Op Diagnosis: Left 2nd Toe Osteomyelitis, insulin requiring diabetes mellitus, neuropathy I identified the patient and participated in the time-out.: Yes Procedure Operation Date: 11/27/19 08:30 Actual Procedures p EGD Biopsy Cytology - Dolores Elliott M.D. Operation Date: 11/28/19 06:30 Actual Procedures p Cath, Left with Cors and Vent - Dimitrios Liz MD s Cineradiography w/Routine Exam - Dimitrios Liz MD Operation Date: 12/07/19 12:30 Actual Procedures p Left 2nd Toe Amputation(Left) - Austyn Krishnamurthy DO Surgeon Austyn Krishnamurthy DO Warehouse Manager Jorge Camilo PA-C Estimated Blood Loss 1 Findings Consistent with Post-Op Diagnosis Specimens Aerobic anaerobic Gram stain left second toe distal phalanx, bone and tissue left second toe amputation Anesthesia Type MAC Regional Complications none Disposition Accompanied Patient To Recovery: No Disposition: Recovery Room
--- NOTE | 2019-12-07 17:49 | Anesthesiology Progress Note ---
Date of Service December 07, 2019 Anesthesia Post Procedure Vital Signs Vital Signs: Temp Pulse Pulse Pulse Pulse Resp BP 12/07/19 17:35 80 22 116/72 12/07/19 17:27 37.1 C 79 23 114/67 12/07/19 16:45 82 12/07/19 15:29 37.2 C 81 18 12/07/19 11:51 37.0 C 80 17 12/07/19 08:00 66 12/07/19 07:44 36.9 C 102 H 17 12/07/19 02:32 37.0 C 81 17 12/06/19 23:33 37.0 C 85 18 12/06/19 21:57 100 H 12/06/19 19:44 36.7 C 69 17 BP Pulse Ox 12/07/19 17:35 98 12/07/19 17:27 90 12/07/19 16:45 12/07/19 15:29 132/79 94 12/07/19 11:51 124/80 94 12/07/19 08:00 12/07/19 07:44 131/86 95 12/07/19 02:32 131/79 95 12/06/19 23:33 126/82 96 12/06/19 21:57 12/06/19 19:44 125/72 95 Pain Intensity Abdomen: Pain Intensity: 0 Transfer of Care Handoff Completed per policy Notes Mental Status: alert / awake / arousable and participated in evaluation Nausea / Vomiting: adequately controlled Pain: adequately controlled Airway Patency, RR, SpO2: stable & adequate BP & HR: stable & adequate Hydration State: stable & adequate Anesthetic Complications: no major complications apparent and Pt Satisfied with anesthetic care
[2019-12-07] MEDS ORDERED: NALOXONE HCL 0.4 MG/1 ML VIAL/CARP IV PRN (18:17)
[2019-12-07] MEDS ORDERED: MAGNESIUM HYDROXIDE SUSP 30 ML UDC PO PRN (18:17)
[2019-12-07] MEDS ORDERED: METOCLOPRAMIDE HCL INJ 5 MG/ML 2 ML VIAL IV PRN (18:17)
[2019-12-07] MEDS ORDERED: bisacodyL 10 MG SUPP PR PRN (18:17)
[2019-12-07] MEDS: SODIUM CHLORIDE 0.9% 1000ML 1,000 ML IV SCH (18:49)
[2019-12-07] MEDS: SENNA 8.6 MG TAB PO SCH (21:23)
[2019-12-07] MEDS: DOCUSATE SODIUM 100 MG CAP PO SCH (21:24)
[2019-12-07] MEDS: INSULIN GLARGINE SOLOSTAR 100 UNITS/ML 3 ML PEN SC SCH (21:28)
--- NOTE | 2019-12-08 01:29 | Operative Report (OR) ---
DATE OF OPERATION: 12/07/2019 PREOPERATIVE DIAGNOSES: 1. Left second toe osteomyelitis. 2. Insulin-requiring diabetes mellitus. 3. Neuropathy of the left foot. SURGEON: Austyn Krishnamurthy DO. MARKETING COMMUNICATIONS MANAGER: Jorge Camilo PA-C, who was present for patient positioning, sterile prep and drape, management of retractors and instruments. He was present through the critical portions of the case including wound closure, application of sterile dressing and transport of the patient to recovery. ANESTHESIA: MAC regional, digital block, left second toe. SPECIMENS: 1. Bone and tissue, left second toe amputation. 2. Aerobic, anaerobic Gram stain, distal phalanx, left second toe. DRAINS: None. COMPLICATIONS: None. BLOOD LOSS: 1 mL. PERTINENT HISTORY: This is a 59-year-old gentleman with insulin-requiring diabetes mellitus for the last 6 years with chronic progressive and worsening osteomyelitis of the left second toe confirmed with radiographs and failed conservative care. He had an extended hospital stay at this time and was medically unstable for surgery until recently. He was then consulted by the medical team regarding the second toe osteomyelitis and the patient was then scheduled for surgery as indicated. All potential risks, benefits, complications, alternatives, rehab, potential for incomplete relief of symptoms, need for further surgery, DVT, PE, , persistent pain, swelling, scarring, weakness, neurovascular injury, wound complications, need for further surgery and amputation were discussed with the patient. The patient decided to proceed with the procedure as indicated. DESCRIPTION OF PROCEDURE: The patient was taken to the operative suite, placed supine on the operating table. After review of consent and identification of proper operative site, the patient was sedated. Left lower extremity was then sterilely prepped and draped in usual fashion, elevated and partially exsanguinated from the mid foot proximally with an Esmarch bandage. An Esmarch tourniquet was applied over sterile surgical towel at the level of the ankle. Next, a digital block was performed with approximately 20 mL of 0.5% Marcaine plain at the left second toe and then after regional block anesthesia was established, the 15-blade was then used to make a transverse incision on the dorsum of the left second toe just proximal to the condyles of the proximal phalanx of the left second toe. This was a full thickness incision through the skin, subcutaneous tissue, extensor tendon, and the joint capsule. This incision was then extended both medially and lateral to the mid lateral line and then extended distally using an extended plantar flap of the 2nd toe extending only into healthy tissue distally. Next, the proximal phalanx was skeletonized with a 15-blade scalpel and the middle phalanx was then disarticulated from the proximal phalanx using 15-blade scalpel. Soft tissue incisions were then completed and the distal and middle phalanx were then passed off as specimen. There was also an aerobic, anaerobic Gram stain specimen which was placed into the distal tip ulcer of the distal phalanx and sent to the laboratory for bacterial identification. Next, the proximal phalanx was then dissected with 15-blade scalpel, exposing the distal condyles of the proximal phalanx of the left second toe and a bone biting rongeur was then used to transect the proximal phalanx proximal to the distal condyles. The bone appeared to be reasonably healthy whereas the distal tip of the toe allowed easy passage of the 15-blade indicating osteomyelitis and bone destruction. Next, the incision was then copiously irrigated with sterile normal saline until clear and the plantar flap of the left second toe was then revised with a 15-blade scalpel and then closed with low tension closure with interrupted 4-0 nylon sutures. Next, a sterile compressive dressing was then gently applied to the left second toe and the left foot. The tourniquet was released. The patient was awakened and taken to recovery in stable condition. I attest to the content of the Intraoperative Record and any orders documented therein. Any exception s are noted below.
[2019-12-08 01:44] LABS: Appearance Urine Cloudy (Clear); Bacteria Urine Automated Negative (Negative); Bilirubin Urine Negative (Negative); Blood Urine 2+ (Negative); Color Urine Yellow; Glucose Urine UA Negative (Negative); Ketones Urine Trace (Negative); Leukocyte Esterase Urine Negative (Negative); Nitrite Urine Negative (Negative); Protein Urine 2+ (Negative); Specific Gravity Urine 1.022 (1.000-1.030); Urobilinogen Urine Negative (Negative)
[2019-12-08 02:02] LABS: Uric Acid Crystals Urine Present (None Prsent)
[2019-12-08] MEDS: SODIUM CHLORIDE 0.9% 1000ML 1,000 ML IV SCH (04:57)
[2019-12-08] MEDS: CEFAZOLIN 2000MG 2,000 MG/15 ML SYR IV SCH ×3 (05:22→21:28)
[2019-12-08 08:03] LABS: Basophils # (auto) 0.04 K/uL (0-0.2); Basophils % (auto) 0.5 %; Eosinophils # (auto) 0.06 K/uL (0-0.5); Eosinophils % (auto) 0.7 %; Hemoglobin 8.3 g/dL (14.0-18.0); Immature Granulocytes # (auto) 0.09 K/uL (0.00-0.02); Lymphocytes # (auto) 1.45 K/uL (1.2-3.4); Lymphocytes % (auto) 16.7 %; Mean Corpuscular Hemoglobin 28.2 pg (25-34); Mean Corpuscular Hgb Conc 31.9 g/dL (32-36); Mean Corpuscular Volume 88.4 fL (80-100); Mean Platelet Volume 8.8 fL (7.4-10.4); Monocytes # (auto) 0.62 K/uL (0.11-0.59); Monocytes % (auto) 7.2 %; Neutrophils % (auto) 73.9 %; Platelet Count 242 K/uL (130-400); RDW Coefficient of Variation 15.8 % (11.5-14.5); RDW Standard Deviation 51.9 fL (36.4-46.3); Red Blood Count 2.94 M/uL (4.7-6.1); White Blood Count 8.66 K/uL (4.8-10.8)
--- NOTE | 2019-12-08 08:08 | Orthopedic Progress Note ---
Date of Service December 08, 2019 Assessment & Plan (1) Diabetic ulcer of foot associated with type 2 diabetes mellitus, with ne crosis of bone: POD#1 left 2nd toe amputation -Patient doing well this morning, no complaints of pain. Plan on dressing change tomorrow. Continue antibiotics per primary service. NWB left lower extremity. Admission and Anticipated Discharge Date Admission Date: November 26, 2019 Subjective Patient is POD#1 left 2nd toe amputation. He is doing well this morning, not having any pain. Denies chest pain, sob, dizziness, light headedness, n/v. Review of Systems Review of Systems: All systems reviewed & are unremarkable except as noted in HPI & below Physical Exam Physical Exam: Dressing to left foot is c/d/i, toes mobile, distally n/v status intact, no calf tenderness Constitutional: well developed and well nourished; no acute distress Results & Data ([facility]) Vital Signs (Past 12 Hours) Vital Signs Temp Pulse Resp BP Pulse Ox 12/08/19 04:04 37.0 C 81 18 126/83 94 12/08/19 00:06 37.0 C 97 H 18 119/75 91 Laboratory Results H & H 11/26/19 11/27/19 11/27/19 Range/Units 10:20 06:40 16:54 Hgb 11.7 L 10.8 L 11.7 L (14.0-18.0) g/dL Hct 35.0 L 32.2 L 35.4 L (42-52) % 11/28/19 11/28/19 11/29/19 Range/Units 05:10 14:51 04:42 Hgb 10.8 L 10.0 L 11.0 L (14.0-18.0) g/dL Hct 32.7 L 29.9 L 32.6 L (42-52) % 11/30/19 12/01/19 12/02/19 Range/Units 04:13 04:18 04:13 Hgb 10.0 L 9.5 L 9.5 L (14.0-18.0) g/dL Hct 28.7 L 27.9 L 28.1 L (42-52) % 12/03/19 12/04/19 12/05/19 Range/Units 04:13 15:15 07:20 Hgb 9.8 L 9.3 L 8.9 L (14.0-18.0) g/dL Hct 29.6 L 28.7 L 27.6 L (42-52) % 12/06/19 12/07/19 12/08/19 Range/Units 05:40 07:34 07:28 Hgb 8.9 L 9.0 L 8.3 L (14.0-18.0) g/dL Hct 27.9 L 27.8 L 26.0 L (42-52) % Coagulation 11/26/19 11/28/19 11/29/19 Range/Units 16:32 05:10 04:42 INR 1.2 H 1.2 H 1.4 H (0.9-1.1) 12/04/19 12/05/19 12/05/19 Range/Units 15:15 07:20 13:09 INR 1.4 H 2.4 H 3.5 H (0.9-1.1) 12/05/19 12/06/19 12/06/19 Range/Units 19:50 05:40 13:59 INR 4.2 H 2.4 H 1.7 H (0.9-1.1) 12/07/19 Range/Units 07:34 INR 1.3 H (0.9-1.1)
[2019-12-08 08:13] LABS: INR 1.3 (0.9-1.1); Partial Thromboplastin Ratio 1.1; Partial Thromboplastin Time 30.7 Seconds (21.0-31.0); Prothrombin Time 13.4 Seconds (9.0-12.0)
[2019-12-08] MEDS: METOPROLOL TARTRATE 50 MG TAB PO SCH ×3 (08:28→21:32)
[2019-12-08] MEDS: DOCUSATE SODIUM 100 MG CAP PO SCH ×2 (08:28→21:31)
[2019-12-08] MEDS: PANTOprazole 40 MG TAB PO SCH ×2 (08:28→21:29)
[2019-12-08] MEDS: INSULIN ASPART 100 UNITS/ML 3 ML PEN SC SCH ×4 (08:29→21:30)
[2019-12-08] MEDS: SUCRALFATE 1 GM/10 ML UDC PO SCH ×4 (08:29→21:30)
[2019-12-08] MEDS: ATORVASTATIN 40 MG TAB PO SCH (08:30)
[2019-12-08] MEDS: MULTIVITAMIN TAB PO SCH (08:30)
[2019-12-08 08:36] LABS: Albumin Level 1.6 gm/dl (3.4-5.0); BUN Creatinine Ratio 14.8 (10-20); Calcium 7.8 mg/dl (8.5-10.1); Creatinine Clr Calc Pharmacy 53.8 ml/min; Est GFR (Non-African American) 34.5; Potassium 4.6 mmol/L (3.5-5.1)
[2019-12-08 08:38] LABS: Albumin Globulin Ratio 0.4 (0.9-2); Bilirubin,Total 0.3 mg/dl (0.2-1); Globulin 3.9 gm/dl (2.5-4.0); Total Protein 5.5 gm/dl (6.4-8.2)
--- NOTE | 2019-12-08 08:51 | Hospitalist Progress Note ---
Date of Service December 08, 2019 Assessment & Plan (1) Septic shock: septic shock secondary to MSSA (Methicillin-sensitive Staphylococcus aureus) bacteremia due to Left foot toe nonhealing wound from Diabetes Mellitus type 2 with osteomyelitis of the toe status post amputation of 2nd Toe on left foot on 12/07/2019 -Patient is a 59-year-old male with history of nonischemic cardiomyopathy, status post AICD pacemaker placement, diabetes type 2, hypertension, presented with nausea vomiting abdominal pain and required ICU admission for for septic shock -on this stay, patient was transitioned from Dapto and Zosyn to cefazolin IV by day 2 for MSSA bacteremia, continue the IV cefazolin -as patient has improved, hospitalist have re-consulted orthopedics as of 12/05/2019 to consider performing toe amputation on this hospital stay for definitive treatment of osteomyelitis with concurrent IV antibiotics. status post amputation of 2nd Toe on left foot on 12/07/2019 -12/08/2019: continue IV antibiotics of cefazolin 2000 mg q8 hours and wound care of amputated area, will need further PT/OT evaluations (2) Splenic infarct: -as noted on admission CT scan -Likely secondary to above versus embolic secondary to underlying Atrial fibrillation -patient has been systemically anticoagulated during this hospital stay in general up until 12/07/2019 before going to operating room -resume coumadin as 5 mg daily starting on 12/08/2019 (3) Duodenitis: Esophagitis -as noted on admission CT scan -s/p EGD with esophagitis as well as duodenitis -continue p.o. Protonix and carafate -patient was on Diflucan, and is stopped on 12/04/2019 because it affected the INR while patient on wafrain with IV heparin bridge (4) Nausea and vomiting: -resolved (5) TITA (acute kidney injury): -present on admission -creatinine has improved and the IV fluids with bicarbonate is stopped on 12/05/2019 (6) HTN (hypertension): -septic shock resolved, on Metoprolol (7) NICM (nonischemic cardiomyopathy): (8) CHF (congestive heart failure): Atrial Fibrillation Presence of ICD -Chronic Systolic Congestive heart failure and s/p ICD placement in July 2019. -Pacemaker interrogation on this admission with appropriate pacemaker function as per Dr. Reed -on metoprolol, continue -given IV Lasix 20 mg IV on 12/05/2019 because of volume overload from treating acute kidney injury with IV fluids on this admission, stop the IV fluids on 12/05/2019 -12/05/2019 to 12/06/2019 update: THE DIFLUCAN HAS INCREASED THE INR WHILE PATIENT WAS ON IV HEPARIN BRIDGE WITH COUMADIN with INR rising rapidly on 12/05/2019 - systemic anticoagulation was temporarily held and when INR then hit 4.2 on 11/10/19 night time test and the patient was given vitamin K IV by brimmer blocker. INR is 1.7 as of 12/06/2019. IV heparin is continued up to AM of 12/07/2019 so patient could get the toe amputation surgery -resume coumadin as 5 mg daily starting on 12/08/2019 (9) DM (diabetes mellitus): Type 2 diabetes mellitus with mcc current use of insulin with complications -complications of diabetic ulcer of 2nd toe on left foot with osteomyelitis has been treated with amputation and IV antibiotics -Hba1c 7.8 -continue current insulin subcutaneously (10) DVT prophylaxis: -IV heparin stopped at 6:30 AM on 12/07/2019 for orthopedic procedure of toe amputation Admission and Anticipated Discharge Date Admission Date: November 26, 2019 Subjective Patient generally comfortable after toe amputation yesterday. no acute distress. no acute pain. no shortness of breath. breathing on room air. no nausea. no vomiting. no chest pain. no palpitations. no dizziness. no headache. Review of Systems Review of Systems: All systems reviewed & are unremarkable except as noted in Subjective Physical Exam Constitutional: comfortable Eyes: PERRL, conjunctivae normal, anicteric sclerae EOM intact bilaterally ENMT: external ear and nose normal, oropharynx normal Neck: normal visual inspection Respiratory: normal respiratory effort Cardiovascular: Rate/Rhythm: regular rate Gastrointestinal (Abdomen): normal bowel sounds, soft, nontender, no hepatosplenomegaly Musculoskeletal: Head/Neck/Chest: normocephalic and head atraumatic recent toe amputation of left foot Neurologic: PERRL, EOMI, accommodation nl, no face palsy, no dysarthria CN's II-XI intact bilaterally Psychiatric: A+Ox3, euthymic affect Results & Data Results & Data ([facility]) Vital Signs (Past 12 Hours) Vital Signs Temp Pulse Resp BP Pulse Ox 12/08/19 08:04 37.2 C 81 18 150/81 H 93 12/08/19 04:04 37.0 C 81 18 126/83 94 12/08/19 00:06 37.0 C 97 H 18 119/75 91 (1) Nausea and vomiting Vomiting Intractability: unspecified Vomiting type: unspecified Qualified Code(s): R11.2 - Nausea with vomiting, unspecified
[2019-12-08] MEDS ORDERED: ACETAMINOPHEN 325 MG TAB PO PRN (08:52)
--- NOTE | 2019-12-08 11:28 | Cardiology Progress Note ---
Date of Service December 08, 2019 Assessment & Plan (1) Acute on chronic heart failure with reduced ejection fraction and diastolic dysfunction: (2) Atrial fibrillation: (3) NICM (nonischemic cardiomyopathy): (4) Renal insufficiency: (5) Presence of biventricular implantable cardioverter-defibrillator (ICD): Restart diuretic therapy today. Lasix 20 mg IV x1 dose ordered. Will follow fluid balance, daily weight, electrolytes, and GFR daily. Restart anticoagulation. Add IV heparin bridging if no contraindications in the postoperative setting. Dose Coumadin for goal INR of 2.0-3.0. Entresto on hold since admission due to renal insufficiency. Continue metoprolol 50 mg 3 times daily. Subjective Patient seen and examined at the bedside. Fluid balance +900 cc. Diuretics on hold since admission due to acute renal insufficiency. Denies chest pain or shortness of breath. Heart rate improved on telemetry. Remains in atrial fibrillation with heart rate ranging 80s to 90 bpm. Toe amputation performed yesterday without complication. Pain controlled. Creatinine stable at 2.0 today. Tolerating diet and medications. Offers no other concerns/complaints. Review of Systems Review of Systems: All systems reviewed & are unremarkable except as noted in HPI & below Physical Exam Constitutional: well developed, + ill appearing and + obese Respiratory: no respiratory distress, no labored breathing and no retractions Auscultation: + rales (Bilateral bases); no crackles, no rhonchi and no wheezes Cardiovascular: Rate/Rhythm: + irregularly irregular Heart Sounds: normal S1 and normal S2; no murmur Vessels: + JVD; no carotid bruit Extremities: + edema (1+ bilateral pretibial edema) Gastrointestinal (Abdomen): Inspection/Auscultation: abdomen normal to inspection and normal bowel sounds; abdomen not distended Percussion/Palpation: abdomen soft; abdomen nontender, no guarding and abdomen not rigid Skin: no rashes, warm and dry Neurologic: moves all extremities; no focal motor deficits Psychiatric: A+Ox3, euthymic affect Results & Data Vital Signs (Past 12 Hours) Vital Signs Temp Pulse Pulse Resp BP Pulse Ox 12/08/19 08:04 37.2 C 81 18 150/81 H 93 12/08/19 08:00 81 12/08/19 04:04 37.0 C 81 18 126/83 94 12/08/19 00:06 37.0 C 97 H 18 119/75 91 (1) Atrial fibrillation Atrial fibrillation type: paroxysmal Qualified Code(s): I48.0 - Paroxysmal atrial fibrillation
[2019-12-08] MEDS ORDERED: FUROSEMIDE 20 MG in SYRINGE 0 ML IV ONE (11:30)
[2019-12-08] MEDS ORDERED: TAMSULOSIN HCL 0.4 MG CAP PO ONE (13:33)
[2019-12-08] MEDS ORDERED: HYDROmorphone INJ 0.5 MG/0.5 ML SYR IV PRN (13:35)
[2019-12-08] MEDS: WARFARIN SOD 5 MG TAB PO SCH (15:46)
[2019-12-08] MEDS: SENNA 8.6 MG TAB PO SCH (21:29)
[2019-12-08] MEDS: INSULIN GLARGINE SOLOSTAR 100 UNITS/ML 3 ML PEN SC SCH (21:31)
[2019-12-09] MEDS: CEFAZOLIN 2000MG 2,000 MG/15 ML SYR IV SCH ×3 (05:24→23:35)
[2019-12-09] MEDS: INSULIN ASPART 100 UNITS/ML 3 ML PEN SC SCH ×4 (07:51→20:32)
[2019-12-09] MEDS: SUCRALFATE 1 GM/10 ML UDC PO SCH ×4 (07:52→23:35)
[2019-12-09] MEDS: DOCUSATE SODIUM 100 MG CAP PO SCH ×2 (07:52→20:30)
[2019-12-09] MEDS: PANTOprazole 40 MG TAB PO SCH ×2 (07:53→20:32)
[2019-12-09] MEDS: MULTIVITAMIN TAB PO SCH (07:53)
[2019-12-09] MEDS: METOPROLOL TARTRATE 50 MG TAB PO SCH ×3 (07:53→20:31)
[2019-12-09] MEDS: ATORVASTATIN 40 MG TAB PO SCH (07:53)
--- NOTE | 2019-12-09 08:11 | Orthopedic Progress Note ---
Date of Service December 09, 2019 Assessment & Plan (1) Diabetic ulcer of foot associated with type 2 diabetes mellitus, with ne crosis of bone: POD#2 left 2nd toe amputation -Patient doing well this morning, no complaints of pain. Continue antibiotics per primary service. NWB left lower extremity. Dressing was changed by myself this morning and redressed. Plan for daily dressing changes. Admission and Anticipated Discharge Date Admission Date: November 26, 2019 Subjective Patient seen sitting up in bed eating breakfast. He is doing well with no complaints. No foot pain. Denies chest pain, sob, dizziness, light headedness, n/v/d. Review of Systems Review of Systems: All systems reviewed & are unremarkable except as noted in HPI & below Physical Exam Physical Exam: Dressing to left foot is c/d/i, toes mobile, distally n/v status intact, no calf tenderness. Dressing was removed. Mild bloody drainage, incision clean and intact. No erythema. Constitutional: well developed and well nourished; no acute distress Results & Data ([facility]) Vital Signs (Past 12 Hours) Vital Signs Temp Pulse Pulse Resp BP BP Pulse Ox 12/09/19 08:03 36.8 C 81 18 133/87 95 12/09/19 07:34 82 12/09/19 04:28 36.7 C 82 18 133/82 97 12/09/19 00:12 37.1 C 86 18 123/76 94 12/09/19 00:00 82
[2019-12-09 08:19] LABS: Basophils # (auto) 0.03 K/uL (0-0.2); Basophils % (auto) 0.4 %; Eosinophils # (auto) 0.06 K/uL (0-0.5); Eosinophils % (auto) 0.9 %; Hematocrit (blood only) 28.1 % (42-52); Hemoglobin 8.9 g/dL (14.0-18.0); Immature Granulocytes # (auto) 0.05 K/uL (0.00-0.02); Immature Granulocytes % (auto) 0.7 %; Lymphocytes # (auto) 1.31 K/uL (1.2-3.4); Lymphocytes % (auto) 18.7 %; Mean Corpuscular Hemoglobin 28.1 pg (25-34); Mean Corpuscular Hgb Conc 31.7 g/dL (32-36); Mean Corpuscular Volume 88.6 fL (80-100); Mean Platelet Volume 8.8 fL (7.4-10.4); Monocytes % (auto) 8.6 %; Neutrophils # (auto) 4.96 K/uL (1.4-6.5); Neutrophils % (auto) 70.7 %; Platelet Count 212 K/uL (130-400); RDW Coefficient of Variation 15.7 % (11.5-14.5); RDW Standard Deviation 51.5 fL (36.4-46.3); Red Blood Count 3.17 M/uL (4.7-6.1); White Blood Count 7.01 K/uL (4.8-10.8)
--- NOTE | 2019-12-09 08:31 | Hospitalist Progress Note ---
Date of Service December 09, 2019 Assessment & Plan (1) Septic shock: septic shock secondary to MSSA (Methicillin-sensitive Staphylococcus aureus) bacteremia due to Left foot toe nonhealing wound from Diabetes Mellitus type 2 with osteomyelitis of the toe status post amputation of 2nd Toe on left foot on 12/07/2019 -Patient is a 59-year-old male with history of nonischemic cardiomyopathy, status post AICD pacemaker placement, diabetes type 2, hypertension, presented with nausea vomiting abdominal pain and required ICU admission for for septic shock -on this stay, patient was transitioned from Dapto and Zosyn to cefazolin IV by day 2 for MSSA bacteremia, continue the IV cefazolin -as patient has improved, hospitalist have re-consulted orthopedics as of 12/05/2019 to consider performing toe amputation on this hospital stay for definitive treatment of osteomyelitis with concurrent IV antibiotics. status post amputation of 2nd Toe on left foot on 12/07/2019 -12/08/2019: continue IV antibiotics of cefazolin 2000 mg q8 hours and wound care of amputated area -Non Weight Bearing of left lower extremity as per orthopedics, will need further PT/OT evaluations but patient may benefit to go to physical rehabilitation center after hospital stay, give intermittent IV Lasix to help with lower extremity edema to help with ambulation (Lasix 20 mg IV ordered on 12/09/2019) (2) Splenic infarct: -as noted on admission CT scan -Likely secondary to above versus embolic secondary to underlying Atrial fibrillation -patient has been systemically anticoagulated during this hospital stay in general up until 12/07/2019 before going to operating room -resume coumadin as 5 mg daily starting on 12/08/2019, continue coumadin daily and trend the INR (3) Duodenitis: Esophagitis -as noted on admission CT scan -s/p EGD with esophagitis as well as duodenitis -continue p.o. Protonix and carafate -patient was on Diflucan, and is stopped on 12/04/2019 because it affected the INR while patient on wafrain with IV heparin bridge (4) Nausea and vomiting: -resolved (5) TITA (acute kidney injury): -present on admission -creatinine has improved and the IV fluids with bicarbonate is stopped on 12/05/2019 (6) HTN (hypertension): -septic shock resolved, on Metoprolol (7) NICM (nonischemic cardiomyopathy): (8) CHF (congestive heart failure): Atrial Fibrillation Presence of ICD -Chronic Systolic Congestive heart failure and s/p ICD placement in July 2019. -Pacemaker interrogation on this admission with appropriate pacemaker function as per Dr. Reed -on metoprolol, continue -given IV Lasix 20 mg IV on 12/05/2019 because of volume overload from treating acute kidney injury with IV fluids on this admission, stop the IV fluids on 12/05/2019 -12/05/2019 to 12/06/2019 update: THE DIFLUCAN HAS INCREASED THE INR WHILE PATIENT WAS ON IV HEPARIN BRIDGE WITH COUMADIN with INR rising rapidly on 12/05/2019 - systemic anticoagulation was temporarily held and when INR then hit 4.2 on 11/10/19 night time test and the patient was given vitamin K IV by environmental health technologist. INR is 1.7 as of 12/06/2019. IV heparin is continued up to AM of 12/07/2019 so patient could get the toe amputation surgery -resume coumadin as 5 mg daily starting on 12/08/2019 (9) DM (diabetes mellitus): Type 2 diabetes mellitus with fpc current use of insulin with complications -complications of diabetic ulcer of 2nd toe on left foot with osteomyelitis has been treated with amputation and IV antibiotics -Hba1c 7.8 -continue current insulin subcutaneously (10) DVT prophylaxis: -IV heparin stopped at 6:30 AM on 12/07/2019 for orthopedic procedure of toe amputation -on coumadin INR is not therapeutic yet, would defer starting IV heparin at this time to avoid bleeding from surgical site Admission and Anticipated Discharge Date Admission Date: November 26, 2019 Subjective Patient had dressing changed of left foot today. he was able to get to commode with assistance of the nurse yesterday to make bowel movement. has has some lower extremity edema. breathing on room air. denies acute shortness of breath. no chest pain. no abdomen pain. no chest pain. no plapitations Review of Systems Review of Systems: All systems reviewed & are unremarkable except as noted in Subjective Physical Exam Constitutional: comfortable Eyes: PERRL, conjunctivae normal, anicteric sclerae EOM intact bilaterally ENMT: external ear and nose normal, oropharynx normal Neck: normal visual inspection Respiratory: normal respiratory effort Cardiovascular: Rate/Rhythm: regular rate Gastrointestinal (Abdomen): normal bowel sounds, soft, nontender, no hepatosplenomegaly Musculoskeletal: Head/Neck/Chest: normocephalic and head atraumatic lower extremity edema, left foot in dressing Neurologic: PERRL, EOMI, accommodation nl, no face palsy, no dysarthria CN's II-XI intact bilaterally Psychiatric: A+Ox3, euthymic affect Results & Data Results & Data ([facility]) Vital Signs (Past 12 Hours) Vital Signs Temp Pulse Pulse Resp BP BP Pulse Ox 12/09/19 08:03 36.8 C 81 18 133/87 95 12/09/19 07:34 82 12/09/19 04:28 36.7 C 82 18 133/82 97 12/09/19 00:12 37.1 C 86 18 123/76 94 12/09/19 00:00 82 (1) Nausea and vomiting Vomiting Intractability: unspecified Vomiting type: unspecified Qualified Code(s): R11.2 - Nausea with vomiting, unspecified
[2019-12-09 08:35] LABS: INR 1.5 (0.9-1.1); Partial Thromboplastin Time 26.6 Seconds (21.0-31.0); Prothrombin Time 15.1 Seconds (9.0-12.0)
[2019-12-09 08:50] LABS: Calcium 8.3 mg/dl (8.5-10.1); Creatinine Clr Calc Pharmacy 53.5 ml/min; Est GFR (African American) 42.2; Est GFR (Non-African American) 36.4; Potassium 4.2 mmol/L (3.5-5.1)
[2019-12-09] MEDS ORDERED: FUROSEMIDE 20 MG in SYRINGE 0 ML IV ONE (09:00)
[2019-12-09] MEDS ORDERED: HEPARIN IV BOLUS 7,000 UNITS in SYRINGE 0 ML IV ONE (09:30)
[2019-12-09] MEDS: HEPARIN SODIUM/DEXTROSE 25,000 UNITS/500 ML BAG IV SCH (09:45)
--- NOTE | 2019-12-09 10:04 | Pharmacy Report ---
Glycemic Control Progress Note - Date of Service December 09, 2019 - Scope Glycemic Pharmacist consulted for glycemic control to write orders per [facility] inpatient glycemic control protocol. - Objective Accuchecks BSG(last 24 hours):: 12/08/19 12/08/19 12/08/19 11:25 16:44 20:55 Glucose POC Glucose 132 H 130 H 156 H 12/09/19 12/09/19 07:23 08:03 Glucose 106 H POC Glucose 92 HbA1c:: Hemoglobin A1c 7.8 % (4.5-5.6) H 11/27/19 06:40 - Recent Pertinent Medications The patient is currently receiving: * Basal insulin: Lantus 20 units every 24 hours * Correctional Insulin: Novolog Correction per scale ACHS Goal Range: Low 110 mg/dL - High 140 mg/dL Correction Factor: 20 mg/dL/unit * Prandial insulin: Per carb ratio of 1 unit per 6 grams CHO consumed - Outpatient Anti-Diabetic Meds Lantus 20 units HS metformin Dulaglutide canagliflozin - Assessment & Plan ASSESSMENT: * See progress note from 11/28/2019 for more background info, in short: * Pt receiving SQ basal bolus insulin regimen for hyperglycemia secondary to baseline DM (outpatient regimen on hold). Patient is on Ancef for bacteremia. Currently he is POD 2 for toe amputation. * Patient is currently receiving an average of 42 units of insulin per day * 20 units of basal insulin * 22 units of prandial/correctional insulin * BSGs ranging 101 - 156 mg/dl over the past 24hrs * Changes needed to insulin regimen: * AM Fasting BSG = 92 mg/dl. This is below goal range for patient based on inpatient targets and co-morbidities. Fasting has been trending downwards so reduce dose by 15% to 17 units. * Post-prandial BSGs are in range therefore no changes needed to CF/CR. * Total daily dose = ~40-45 units. PLAN FOR INPATIENT GLYCEMIC CONTROL: * DECREASING Lantus to 17 units SQ HS * Continuing correction factor of 20 mg/dl/unit * Continuing carb ratio of 1 unit per 6 grams CHO consumed * Continuing goal range of Low 110 mg/dL - High 140 mg/dL RECOMMENDATIONS FOR DISCHARGE: * Since patient had amputation, may consider discontinuing canagliflozin (BBW for leg and foot amputations) * May consider discontinuation of metformin depending on eGFR above 30 mL/min upon discharge. If eGFR between 30-45 mL/min, consider decreasing dose to 1000 mg/day. * Otherwise can continue current regimen as HbA1C at goal. If above agents d/c'ed may need more insulin to compensate. Thank you.
--- NOTE | 2019-12-09 11:59 | Cardiology Progress Note ---
Date of Service December 09, 2019 Assessment & Plan (1) Acute on chronic heart failure with reduced ejection fraction and diastolic dysfunction: (2) Atrial fibrillation: (3) NICM (nonischemic cardiomyopathy): (4) Renal insufficiency: (5) Presence of biventricular implantable cardioverter-defibrillator (ICD): Continue Lasix 20 mg IV daily. Follow fluid balance, daily weight, electrolytes, and GFR daily. Consider titration to 40 mg twice daily tomorrow if renal function remains stable. Recommend IV heparin bridging. Continue to dose Coumadin daily for goal INR of 2.0-3.0. Entresto on hold since admission due to renal insufficiency. Continue metoprolol 50 mg 3 times daily. Subjective Patient seen and examined at the bedside. Fluid balance negative approximately 1 L over the past 24 hours. Creatinine trending downward slightly. Edema unchanged. Patient denies chest pain, shortness of breath, or palpitations. Tolerating diet and medication. Left lower extremity pain controlled. INR remains subtherapeutic. Telemetry demonstrates atrial fibrillation with controlled ventricular response. Review of Systems Review of Systems: All systems reviewed & are unremarkable except as noted in HPI & below Physical Exam Constitutional: well developed, + ill appearing and + obese Respiratory: no respiratory distress, no labored breathing and no retractions Auscultation: + rales (Bilateral bases); no crackles, no rhonchi and no wheezes Cardiovascular: Rate/Rhythm: + irregularly irregular Heart Sounds: normal S1 and normal S2; no murmur Vessels: + JVD; no carotid bruit Extremities: + edema (1-2+ bilateral pretibial edema) Gastrointestinal (Abdomen): Inspection/Auscultation: abdomen normal to inspection and normal bowel sounds; abdomen not distended Percussion/Palpation: abdomen soft; abdomen nontender, no guarding and abdomen not rigid Skin: no rashes, warm and dry Neurologic: moves all extremities; no focal motor deficits Psychiatric: A+Ox3, euthymic affect Results & Data Vital Signs (Past 12 Hours) Vital Signs Temp Pulse Pulse Resp BP BP Pulse Ox 12/09/19 08:03 36.8 C 81 18 133/87 95 12/09/19 07:34 82 12/09/19 04:28 36.7 C 82 18 133/82 97 12/09/19 00:12 37.1 C 86 18 123/76 94 12/09/19 00:00 82 (1) Atrial fibrillation Atrial fibrillation type: paroxysmal Qualified Code(s): I48.0 - Paroxysmal atrial fibrillation
[2019-12-09 16:39] LABS: Partial Thromboplastin Ratio 3.7
[2019-12-09] MEDS: WARFARIN SOD 5 MG TAB PO SCH (16:39)
[2019-12-09 17:06] LABS: Partial Thromboplastin Time 102.7 Seconds (21.0-31.0)
[2019-12-09] MEDS: TAMSULOSIN HCL 0.4 MG CAP PO SCH (20:30)
[2019-12-09] MEDS: INSULIN GLARGINE SOLOSTAR 100 UNITS/ML 3 ML PEN SC SCH (20:30)
[2019-12-09] MEDS: SENNA 8.6 MG TAB PO SCH (20:33)
[2019-12-10 00:52] LABS: Partial Thromboplastin Ratio 2.6
[2019-12-10 00:56] LABS: Partial Thromboplastin Time 71.3 Seconds (21.0-31.0)
[2019-12-10] MEDS: HEPARIN SODIUM/DEXTROSE 25,000 UNITS/500 ML BAG IV SCH ×2 (03:29→07:55)
[2019-12-10] MEDS: CEFAZOLIN 2000MG 2,000 MG/15 ML SYR IV SCH ×3 (05:56→21:52)
[2019-12-10 07:41] LABS: Basophils # (auto) 0.07 K/uL (0-0.2); Basophils % (auto) 1.1 %; Eosinophils # (auto) 0.07 K/uL (0-0.5); Eosinophils % (auto) 1.1 %; Hematocrit (blood only) 26.4 % (42-52); Hemoglobin 8.5 g/dL (14.0-18.0); Immature Granulocytes # (auto) 0.03 K/uL (0.00-0.02); Immature Granulocytes % (auto) 0.5 %; Lymphocytes # (auto) 1.22 K/uL (1.2-3.4); Lymphocytes % (auto) 19.3 %; Mean Corpuscular Hemoglobin 28.2 pg (25-34); Mean Corpuscular Hgb Conc 32.2 g/dL (32-36); Mean Corpuscular Volume 87.7 fL (80-100); Monocytes # (auto) 0.57 K/uL (0.11-0.59); Neutrophils # (auto) 4.37 K/uL (1.4-6.5); Platelet Count 214 K/uL (130-400); RDW Coefficient of Variation 15.8 % (11.5-14.5); RDW Standard Deviation 50.7 fL (36.4-46.3); Red Blood Count 3.01 M/uL (4.7-6.1); White Blood Count 6.33 K/uL (4.8-10.8)
[2019-12-10] MEDS: PANTOprazole 40 MG TAB PO SCH ×2 (07:47→21:48)
[2019-12-10] MEDS: ATORVASTATIN 40 MG TAB PO SCH (07:47)
[2019-12-10] MEDS: MULTIVITAMIN TAB PO SCH (07:47)
[2019-12-10] MEDS: METOPROLOL TARTRATE 50 MG TAB PO SCH ×3 (07:47→21:47)
[2019-12-10] MEDS: INSULIN ASPART 100 UNITS/ML 3 ML PEN SC SCH ×4 (07:48→21:45)
[2019-12-10] MEDS: DOCUSATE SODIUM 100 MG CAP PO SCH ×2 (07:48→21:47)
[2019-12-10] MEDS: SUCRALFATE 1 GM/10 ML UDC PO SCH ×4 (07:48→21:53)
[2019-12-10 07:56] LABS: INR 2.5 (0.9-1.1); Prothrombin Time 24.9 Seconds (9.0-12.0)
[2019-12-10 08:08] LABS: Partial Thromboplastin Time 55.3 Seconds (21.0-31.0)
[2019-12-10 08:16] LABS: BUN Creatinine Ratio 13.9 (10-20); Calcium 8.3 mg/dl (8.5-10.1); Creatinine Clr Calc Pharmacy 55.4 ml/min; Est GFR (African American) 44.1; Potassium 4.1 mmol/L (3.5-5.1)
[2019-12-10] MEDS ORDERED: METOPROLOL TARTRATE 1 MG/ML VIAL IV STA (08:17)
--- NOTE | 2019-12-10 08:20 | Hospitalist Progress Note ---
Date of Service December 10, 2019 Assessment & Plan (1) Septic shock: septic shock secondary to MSSA (Methicillin-sensitive Staphylococcus aureus) bacteremia due to Left foot toe nonhealing wound from Diabetes Mellitus type 2 with osteomyelitis of the toe status post amputation of 2nd Toe on left foot on 12/07/2019 -Patient is a 59-year-old male with history of nonischemic cardiomyopathy, status post AICD pacemaker placement, diabetes type 2, hypertension, presented with nausea vomiting abdominal pain and required ICU admission for for septic shock -on this stay, patient was transitioned from Dapto and Zosyn to cefazolin IV by day 2 for MSSA bacteremia, continue the IV cefazolin -as patient has improved, hospitalist have re-consulted orthopedics as of 12/05/2019 to consider performing toe amputation on this hospital stay for definitive treatment of osteomyelitis with concurrent IV antibiotics. status post amputation of 2nd Toe on left foot on 12/07/2019 -12/08/2019: continue IV antibiotics of cefazolin 2000 mg q8 hours and wound care of amputated area -Non Weight Bearing of left lower extremity as per orthopedics, will need further PT/OT evaluations but patient may benefit to go to physical rehabilitation center after hospital stay, give intermittent IV Lasix to help with lower extremity edema to help with ambulation (Lasix 20 mg IV ordered on 12/09/2019, and for 12/10/2019) (2) Splenic infarct: -as noted on admission CT scan -Likely secondary to above versus embolic secondary to underlying Atrial fibrillation -patient has been systemically anticoagulated during this hospital stay in general up until 12/07/2019 before going to operating room -resumed coumadin as 5 mg daily starting on 12/08/2019, cardiology started heparin IV on 12/09/2019, but INR is 2.5 on 12/10/2019 so IV heparin stopped. warfarin to be redosed as 4 mg daily for now (3) Duodenitis: Esophagitis -as noted on admission CT scan -s/p EGD with esophagitis as well as duodenitis -continue p.o. Protonix and carafate -patient was on Diflucan, and is stopped on 12/04/2019 because it affected the INR while patient on wafrain with IV heparin bridge (4) Nausea and vomiting: -resolved (5) TITA (acute kidney injury): -present on admission -creatinine has improved and the IV fluids with bicarbonate is stopped on 12/05/2019 (6) HTN (hypertension): -septic shock resolved, on Metoprolol (7) NICM (nonischemic cardiomyopathy): (8) CHF (congestive heart failure): Atrial Fibrillation Presence of ICD -Chronic Systolic Congestive heart failure and s/p ICD placement in July 2019. -Pacemaker interrogation on this admission with appropriate pacemaker function as per Dr. Reed -on metoprolol, continue -given IV Lasix 20 mg IV on 12/05/2019 because of volume overload from treating acute kidney injury with IV fluids on this admission, stop the IV fluids on 12/05/2019 -12/05/2019 to 12/06/2019 update: THE DIFLUCAN HAS INCREASED THE INR WHILE PATIENT WAS ON IV HEPARIN BRIDGE WITH COUMADIN with INR rising rapidly on 12/05/2019 - systemic anticoagulation was temporarily held then INR reversed for toe amputation surgery, -resumed coumadin as 5 mg daily starting on 12/08/2019, cardiology started heparin IV on 12/09/2019, but INR is 2.5 on 12/10/2019 so IV heparin stopped. 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 he denies chest pain or palpitations. no shortness of breath. he is comfortable and had finished his breakfast. INR is 2.5 so IV heparin is to be stopped. no abdomen pain, no nausea, no fever, no dizziness, no headache. Review of Systems Review of Systems: All systems reviewed & are unremarkable except as noted in Subjective Physical Exam Constitutional: comfortable Eyes: PERRL, conjunctivae normal, anicteric sclerae EOM intact bilaterally ENMT: external ear and nose normal, oropharynx normal Neck: normal visual inspection Respiratory: normal respiratory effort Cardiovascular: Rate/Rhythm: + tachycardic Gastrointestinal (Abdomen): normal bowel sounds, soft, nontender, no hepatosplenomegaly Musculoskeletal: Head/Neck/Chest: normocephalic and head atraumatic left foot in dressing, some bilateral lower extremity edema Neurologic: PERRL, EOMI, accommodation nl, no face palsy, no dysarthria CN's II-XI intact bilaterally Psychiatric: A+Ox3, euthymic affect Results & Data Results & Data ([facility]) Vital Signs (Past 12 Hours) Vital Signs Temp Pulse Pulse Pulse Resp BP Pulse Ox 12/10/19 07:19 36.9 C 91 H 18 132/79 94 12/10/19 03:45 36.7 C 100 H 17 127/79 97 12/10/19 00:00 83 12/09/19 23:05 37.4 C 84 19 121/79 95 (1) Nausea and vomiting Vomiting Intractability: unspecified Vomiting type: unspecified Qualified Code(s): R11.2 - Nausea with vomiting, unspecified
[2019-12-10] MEDS ORDERED: FUROSEMIDE 20 MG in SYRINGE 0 ML IV ONE (08:45)
[2019-12-10] MEDS: FUROSEMIDE 40 MG in SYRINGE 0 ML IV SCH ×2 (09:08→21:48)
--- NOTE | 2019-12-10 12:00 | Cardiology Progress Note ---
Date of Service December 10, 2019 Assessment & Plan (1) Acute on chronic heart failure with reduced ejection fraction and diastolic dysfunction: (2) Atrial fibrillation: (3) NICM (nonischemic cardiomyopathy): (4) Renal insufficiency: (5) Presence of biventricular implantable cardioverter-defibrillator (ICD): Titrate Lasix to 40 mg twice daily. Follow fluid balance, daily weight, electrolytes, and GFR daily. Discontinue IV heparin. Patient appears to have low Coumadin requirements. INR reached 2.4 after single 5 mg dose earlier during hospitalization. Reduce Coumadin to 2 mg daily. Daily PT/INR. Entresto on hold since admission due to renal insufficiency. Continue metoprolol 50 mg 3 times daily. Subjective Patient seen and examined at the bedside. Resting comfortably. Heart rate controlled at rest, however, rapid ventricular response noted with minimal activity. Fluid balance negative approximately 300 cc. Creatinine continues to trend downward. Review of Systems Review of Systems: All systems reviewed & are unremarkable except as noted in HPI & below Physical Exam Constitutional: well developed, + ill appearing and + obese Respiratory: no respiratory distress, no labored breathing and no retractions Auscultation: + rales (Bilateral bases); no crackles, no rhonchi and no wheezes Cardiovascular: Rate/Rhythm: + irregularly irregular Heart Sounds: normal S1 and normal S2; no murmur Vessels: + JVD; no carotid bruit Extremities: + edema (1-2+ bilateral pretibial edema) Gastrointestinal (Abdomen): Inspection/Auscultation: abdomen normal to inspection and normal bowel sounds; abdomen not distended Percussion/Palpation: abdomen soft; abdomen nontender, no guarding and abdomen not rigid Skin: no rashes, warm and dry Neurologic: moves all extremities; no focal motor deficits Psychiatric: A+Ox3, euthymic affect Results & Data Vital Signs (Past 12 Hours) Vital Signs Temp Pulse Pulse Pulse Resp BP BP 12/10/19 11:09 36.5 C 84 20 12/10/19 08:54 113 H 130/74 12/10/19 07:19 36.9 C 91 H 18 132/79 12/10/19 07:00 84 12/10/19 03:45 36.7 C 100 H 17 127/79 12/10/19 00:00 83 BP Pulse Ox 12/10/19 11:09 117/74 96 12/10/19 08:54 12/10/19 07:19 94 12/10/19 07:00 12/10/19 03:45 97 12/10/19 00:00 (1) Atrial fibrillation Atrial fibrillation type: paroxysmal Qualified Code(s): I48.0 - Paroxysmal atrial fibrillation
[2019-12-10] MEDS ORDERED: WARFARIN SOD 4 MG TAB PO SCH (16:00)
[2019-12-10] MEDS: WARFARIN SOD 2 MG TAB PO SCH (17:06)
[2019-12-10] MEDS: INSULIN GLARGINE SOLOSTAR 100 UNITS/ML 3 ML PEN SC SCH (21:45)
[2019-12-10] MEDS: TAMSULOSIN HCL 0.4 MG CAP PO SCH (21:47)
[2019-12-10] MEDS: SENNA 8.6 MG TAB PO SCH (21:48)
[2019-12-11] MEDS: CEFAZOLIN 2000MG 2,000 MG/15 ML SYR IV SCH ×4 (05:07→23:23)
[2019-12-11 06:11] LABS: Basophils # (auto) 0.05 K/uL (0-0.2); Basophils % (auto) 0.9 %; Eosinophils # (auto) 0.07 K/uL (0-0.5); Eosinophils % (auto) 1.3 %; Hematocrit (blood only) 25.5 % (42-52); Immature Granulocytes # (auto) 0.03 K/uL (0.00-0.02); Immature Granulocytes % (auto) 0.6 %; Lymphocytes # (auto) 1.42 K/uL (1.2-3.4); Lymphocytes % (auto) 26.4 %; Mean Corpuscular Hemoglobin 27.6 pg (25-34); Mean Corpuscular Hgb Conc 31.4 g/dL (32-36); Mean Corpuscular Volume 87.9 fL (80-100); Monocytes # (auto) 0.59 K/uL (0.11-0.59); Neutrophils # (auto) 3.21 K/uL (1.4-6.5); Neutrophils % (auto) 59.8 %; Platelet Count 215 K/uL (130-400); RDW Coefficient of Variation 15.6 % (11.5-14.5); White Blood Count 5.37 K/uL (4.8-10.8)
[2019-12-11 06:45] LABS: BUN Creatinine Ratio 14.3 (10-20); Calcium 7.8 mg/dl (8.5-10.1); Creatinine Clr Calc Pharmacy 54.8 ml/min; Est GFR (African American) 43.3; Est GFR (Non-African American) 37.3; Potassium 3.7 mmol/L (3.5-5.1)
[2019-12-11] MEDS: INSULIN ASPART 100 UNITS/ML 3 ML PEN SC SCH ×4 (08:20→21:37)
[2019-12-11] MEDS: FUROSEMIDE 40 MG in SYRINGE 0 ML IV SCH (08:21)
[2019-12-11] MEDS: SUCRALFATE 1 GM/10 ML UDC PO SCH ×4 (08:21→21:33)
[2019-12-11] MEDS: DOCUSATE SODIUM 100 MG CAP PO SCH ×2 (08:21→21:34)
[2019-12-11] MEDS: PANTOprazole 40 MG TAB PO SCH ×2 (08:21→21:35)
[2019-12-11] MEDS: ATORVASTATIN 40 MG TAB PO SCH (08:21)
[2019-12-11] MEDS: MULTIVITAMIN TAB PO SCH (08:21)
[2019-12-11] MEDS: METOPROLOL TARTRATE 50 MG TAB PO SCH ×3 (08:22→18:59)
--- NOTE | 2019-12-11 10:29 | Hospitalist Progress Note ---
Date of Service December 11, 2019 Assessment & Plan (1) Septic shock: septic shock secondary to MSSA (Methicillin-sensitive Staphylococcus aureus) bacteremia due to Left foot toe nonhealing wound from Diabetes Mellitus type 2 with osteomyelitis of the toe status post amputation of 2nd Toe on left foot on 12/07/2019 -Patient is a 59-year-old male with history of nonischemic cardiomyopathy, status post AICD pacemaker placement, diabetes type 2, hypertension, presented with nausea vomiting abdominal pain and required ICU admission for for septic shock -on this stay, patient was transitioned from Dapto and Zosyn to cefazolin IV by day 2 for MSSA bacteremia, continue the IV cefazolin -as patient has improved, hospitalist have re-consulted orthopedics as of 12/05/2019 to consider performing toe amputation on this hospital stay for definitive treatment of osteomyelitis with concurrent IV antibiotics. status post amputation of 2nd Toe on left foot on 12/07/2019 -12/08/2019: continue IV antibiotics of cefazolin 2000 mg q8 hours and wound care of amputated area -Non Weight Bearing of left lower extremity as per orthopedics, will need further PT/OT evaluations but patient may benefit to go to physical rehabilitation center after hospital stay, give intermittent IV Lasix to help with lower extremity edema to help with ambulation (Lasix 20 mg IV ordered on 12/09/2019, and 40 mg IV for 12/10/2019) -12/11/2019: cardiology recommends Lasix as 60 mg IV BID and maintain creatinine to around 2, with metoprolol 50 mg q6 hours (2) Splenic infarct: -as noted on admission CT scan -Likely secondary to above versus embolic secondary to underlying Atrial fi brillation -patient has been systemically anticoagulated during this hospital stay in general (3) Duodenitis: Esophagitis -as noted on admission CT scan -s/p EGD with esophagitis as well as duodenitis -continue p.o. Protonix and carafate -patient was on Diflucan, and is stopped on 12/04/2019 because it affected the INR while patient on wafrain with IV heparin bridge (4) Nausea and vomiting: -resolved (5) TITA (acute kidney injury): -present on admission -creatinine has improved and the IV fluids with bicarbonate is stopped on 12/05/2019 (6) HTN (hypertension): -septic shock resolved, on Metoprolol (7) NICM (nonischemic cardiomyopathy): (8) CHF (congestive heart failure): Atrial Fibrillation Presence of ICD -Chronic Systolic Congestive heart failure and s/p ICD placement in July 2019. -Pacemaker interrogation on this admission with appropriate pacemaker function as per Dr. Reed -on metoprolol -given IV Lasix 20 mg IV on 12/05/2019 because of volume overload from treating acute kidney injury with IV fluids on this admission, stop the IV fluids on 12/05/2019 -12/05/2019 to 12/06/2019 update: THE DIFLUCAN HAS INCREASED THE INR WHILE PATIENT WAS ON IV HEPARIN BRIDGE WITH COUMADIN with INR rising rapidly on 12/05/2019 - systemic anticoagulation was temporarily held then INR reversed for toe amputation surgery, -resumed coumadin as 5 mg daily starting on 12/08/2019, cardiology started heparin IV on 12/09/2019, but INR is 2.5 on 12/10/2019 so IV heparin stopped. warfarin to be redosed as 4 mg daily for now -has been metoprolol oral 50 mg TID, give additional IV metoprolol 5 mg x 1 in AM of 12/21/2019 because of tachycardia and monitor -12/11/2019: cardiology recommends Lasix as 60 mg IV BID and maintain creatinine to around 2, with metoprolol 50 mg q6 hours ; therapeutic INR on coumadin. 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 INR is 3 on 12/11/2019, continue coumadin as 2 mg daily for now and titrate coumadin as needed to target 2 to 3 Admission and Anticipated Discharge Date Admission Date: November 26, 2019 Subjective bilateral lower extremity edema. left foot in dressing. patient noted to be again tachycardic in the AM. seems to correlate with daytime activity Cardiology is adjusting the beta blockers and Lasix patient breathing on room air. no shortness of breath denies acute pain. no dizziness. no headache. no vomiting. Review of Systems Review of Systems: All systems reviewed & are unremarkable except as noted in Subjective Physical Exam Constitutional: comfortable Eyes: PERRL, conjunctivae normal, anicteric sclerae EOM intact bilaterally ENMT: external ear and nose normal, oropharynx normal Neck: normal visual inspection Respiratory: normal respiratory effort Cardiovascular: Rate/Rhythm: + tachycardic Gastrointestinal (Abdomen): normal bowel sounds, soft, nontender, no hep atosplenomegaly Musculoskeletal: Head/Neck/Chest: normocephalic and head atraumatic bilateral lower extremity edema. left foot in dressing Neurologic: PERRL, EOMI, accommodation nl, no face palsy, no dysarthria CN's II-XI intact bilaterally Psychiatric: A+Ox3, euthymic affect Results & Data Results & Data ([facility]) Vital Signs (Past 12 Hours) Vital Signs Temp Pulse Pulse Pulse Resp BP Pulse Ox 12/11/19 07:52 36.9 C 83 18 143/80 H 95 12/11/19 07:05 84 12/11/19 03:38 36.7 C 86 17 142/52 H 95 12/10/19 23:43 36.7 C 86 18 147/89 H 94 12/10/19 23:38 85 (1) Nausea and vomiting Vomiting Intractability: unspecified Vomiting type: unspecified Qualified Code(s): R11.2 - Nausea with vomiting, unspecified
--- NOTE | 2019-12-11 10:59 | Cardiology Progress Note ---
Date of Service December 11, 2019 Assessment & Plan (1) Acute on chronic heart failure with reduced ejection fraction and diastolic dysfunction: (2) Atrial fibrillation: (3) NICM (nonischemic cardiomyopathy): (4) Renal insufficiency: (5) Presence of biventricular implantable cardioverter-defibrillator (ICD): Titrate Lasix to 60 mg twice daily. Follow fluid balance, daily weight, electrolytes, and GFR daily. Increase metoprolol to 50 mg every 6hrs. INR has trended upward to 3.0 today. Coumadin dose reduced to 2 mg yesterday 12/10/2019. Recommend hold Coumadin today. Adjust dose in a.m. 12/12/2019 pending review of INR. Entresto on hold since admission due to renal insufficiency. Subjective Patient patient seen and examined at the bedside. Rapid ventricular response with heart rate up to 160 bpm recorded this morning during physical therapy. Patient denies palpitations. Edema unchanged. Positive fluid balance recorded over the past 24 hours, however, patient I's and O's have not been accurately recorded. There are at least 4 bathroom visits which the output was not recorded. Denies chest pain or shortness of breath at rest. Renal function remained stable. Review of Systems Review of Systems: All systems reviewed & are unremarkable except as noted in HPI & below Physical Exam Constitutional: well developed, + ill appearing and + obese Respiratory: no respiratory distress, no labored breathing and no retractions Auscultation: + rales (Bilateral bases); no crackles, no rhonchi and no wheezes Cardiovascular: Rate/Rhythm: + irregularly irregular Heart Sounds: normal S1 and normal S2; no murmur Vessels: + JVD; no carotid bruit Extremities: + edema (2+ bilateral pretibial edema, 1+ b/L upper extremity edema) Gastrointestinal (Abdomen): Inspection/Auscultation: abdomen normal to inspection and normal bowel sounds; abdomen not distended Percussion/Palpation: abdomen soft; abdomen nontender, no guarding and abdomen not rigid Skin: no rashes, warm and dry Neurologic: moves all extremities; no focal motor deficits Psychiatric: A+Ox3, euthymic affect Results & Data Vital Signs (Past 12 Hours) Vital Signs Temp Pulse Pulse Pulse Resp BP Pulse Ox 12/11/19 07:52 36.9 C 83 18 143/80 H 95 12/11/19 07:05 84 12/11/19 03:38 36.7 C 86 17 142/52 H 95 12/10/19 23:43 36.7 C 86 18 147/89 H 94 12/10/19 23:38 85 (1) Atrial fibrillation Atrial fibrillation type: paroxysmal Qualified Code(s): I48.0 - Paroxysmal atrial fibrillation
--- NOTE | 2019-12-11 14:51 | Pharmacy Report ---
Pharmacy Glycemic Short Note 2 - Date of Service December 11, 2019 - Glycemic Short BSG Results (Last 24 hours): 12/10/19 12/10/19 12/11/19 16:22 20:32 05:43 Glucose 84 POC Glucose 114 H 133 H 12/11/19 12/11/19 07:35 11:35 Glucose POC Glucose 80 157 H Outpatient Anti-diabetic Regimen: * Lantus 20 units SC HS * Metformin * Dulaglutide * Canagliflozin * A1c = 7.8 % on 11/27/19 ASSESSMENT: * BSGs have been well-controlled past 48+ hours. * Mr Lopez is POD #4 s/p toe amputation. * No changes are required to insulin regimen at this time. PLAN FOR INPATIENT GLYCEMIC CONTROL: * Continue to hold outpatient oral diabetes medications * Basal insulin - * Lantus 17 units qPM * Bolus insulin - * Novolog ACHS * Goal range: 110-140 mg/dL * Correction factor: 20 mg/dL/unit * Carb ratio: 1 unit for every 6 g CHO DISCHARGE PLANNING: * Consider discontinuing canagliflozin (Invokana) on discharge, as this medication carries a Black Box Warning in patients with amputation. * Patient's A1c (7.8%) indicates suboptimal glycemic control. Would prefer to optimize A1c, especially to promote wound healing and discourage infection. * Consider adjusting patient's insulin dose on discharge, and/or maximizing his other oral agents, as renal function allows.
[2019-12-11] MEDS: FUROSEMIDE 60 MG in SYRINGE 0 ML IV SCH (17:01)
[2019-12-11] MEDS: SENNA 8.6 MG TAB PO SCH (21:34)
[2019-12-11] MEDS: TAMSULOSIN HCL 0.4 MG CAP PO SCH (21:34)
[2019-12-11] MEDS: INSULIN GLARGINE SOLOSTAR 100 UNITS/ML 3 ML PEN SC SCH (21:36)
[2019-12-12] MEDS: METOPROLOL TARTRATE 50 MG TAB PO SCH ×4 (00:35→20:13)
[2019-12-12] MEDS: CEFAZOLIN 2000MG 2,000 MG/15 ML SYR IV SCH ×3 (06:11→20:14)
[2019-12-12 07:13] LABS: Basophils # (auto) 0.08 K/uL (0-0.2); Basophils % (auto) 1.4 %; Eosinophils # (auto) 0.08 K/uL (0-0.5); Eosinophils % (auto) 1.4 %; Hematocrit (blood only) 26.1 % (42-52); Hemoglobin 8.3 g/dL (14.0-18.0); Immature Granulocytes # (auto) 0.02 K/uL (0.00-0.02); Immature Granulocytes % (auto) 0.4 %; Lymphocytes # (auto) 1.45 K/uL (1.2-3.4); Lymphocytes % (auto) 25.6 %; Mean Corpuscular Hgb Conc 31.8 g/dL (32-36); Mean Corpuscular Volume 88.2 fL (80-100); Monocytes # (auto) 0.61 K/uL (0.11-0.59); Monocytes % (auto) 10.8 %; Neutrophils # (auto) 3.43 K/uL (1.4-6.5); Neutrophils % (auto) 60.4 %; Platelet Count 218 K/uL (130-400); RDW Coefficient of Variation 15.7 % (11.5-14.5); RDW Standard Deviation 51.2 fL (36.4-46.3); Red Blood Count 2.96 M/uL (4.7-6.1); White Blood Count 5.67 K/uL (4.8-10.8)
[2019-12-12 07:21] LABS: INR 2.6 (0.9-1.1); Prothrombin Time 25.6 Seconds (9.0-12.0)
[2019-12-12 07:40] LABS: Albumin Level 1.8 gm/dl (3.4-5.0); BUN Creatinine Ratio 14.1 (10-20); Calcium 7.9 mg/dl (8.5-10.1); Creatinine Clr Calc Pharmacy 51.7 ml/min; Est GFR (African American) 40.5; Est GFR (Non-African American) 34.9; Potassium 3.8 mmol/L (3.5-5.1)
[2019-12-12 07:43] LABS: Albumin Globulin Ratio 0.4 (0.9-2); Bilirubin,Total 0.3 mg/dl (0.2-1); Globulin 4.3 gm/dl (2.5-4.0); Total Protein 6.1 gm/dl (6.4-8.2)
[2019-12-12] MEDS: PANTOprazole 40 MG TAB PO SCH ×2 (08:48→20:14)
[2019-12-12] MEDS: DOCUSATE SODIUM 100 MG CAP PO SCH ×2 (08:49→20:14)
[2019-12-12] MEDS: FUROSEMIDE 60 MG in SYRINGE 0 ML IV SCH ×2 (08:49→17:02)
[2019-12-12] MEDS: MULTIVITAMIN TAB PO SCH (08:49)
[2019-12-12] MEDS: ATORVASTATIN 40 MG TAB PO SCH (08:49)
[2019-12-12] MEDS: SUCRALFATE 1 GM/10 ML UDC PO SCH ×4 (08:50→20:14)
[2019-12-12] MEDS: INSULIN ASPART 100 UNITS/ML 3 ML PEN SC SCH ×4 (08:50→20:49)
--- NOTE | 2019-12-12 08:58 | Hospitalist Progress Note ---
Date of Service December 12, 2019 Assessment & Plan (1) Septic shock: septic shock secondary to MSSA (Methicillin-sensitive Staphylococcus aureus) bacteremia due to Left foot toe nonhealing wound from Diabetes Mellitus type 2 with osteomyelitis of the toe status post amputation of 2nd Toe on left foot on 12/07/2019 -Patient is a 59-year-old male with history of nonischemic cardiomyopathy, status post AICD pacemaker placement, diabetes type 2, hypertension, presented with nausea vomiting abdominal pain and required ICU admission for for septic shock -on this stay, patient was transitioned from Dapto and Zosyn to cefazolin IV by day 2 for MSSA bacteremia, continue the IV cefazolin 2g q8 hrs -as patient has improved, hospitalist have re-consulted orthopedics as of 12/05/2019 to consider performing toe amputation on this hospital stay for definitive treatment of osteomyelitis with concurrent IV antibiotics. status post amputation of 2nd Toe on left foot on 12/07/2019 -12/08/2019: continue IV antibiotics of cefazolin 2000 mg q8 hours and wound care of amputated area -Non Weight Bearing of left lower extremity as per orthopedics, will need further PT/OT evaluations but patient may benefit to go to physical rehabilitation center after hospital stay, give intermittent IV Lasix to help with lower extremity edema to help with ambulation (Lasix 20 mg IV ordered on 12/09/2019, and 40 mg IV for 12/10/2019) now transitioned to 60 mg of Lasix twice daily -12/11/2019: cardiology recommends Lasix as 60 mg IV BID and maintain creatinine to around 2, with metoprolol 50 mg q6 hours (2) Splenic infarct: -as noted on admission CT scan -Likely secondary to above versus embolic secondary to underlying Atrial fibrillation -patient has been systemically anticoagulated during this hospital stay in general (3) Duodenitis: Esophagitis -as noted on admission CT scan -s/p EGD with esophagitis as well as duodenitis -continue p.o. Protonix and carafate -patient was on Diflucan, and is stopped on 12/04/2019 because it affected the INR while patient on wafrain with IV heparin bridge (4) Nausea and vomiting: -resolved (5) TITA (acute kidney injury): -present on admission -creatinine has improved and the IV fluids with bicarbonate is stopped on 12/05/2019 -Baseline creatinine about 1.2, during this admission peaked up to 5, now stable at 2 -Nephrology following (6) HTN (hypertension): -septic shock resolved, on Metoprolol (7) NICM (nonischemic cardiomyopathy): (8) CHF (congestive heart failure): Atrial Fibrillation Presence of ICD -Chronic Systolic Congestive heart failure and s/p ICD placement in July 2019. -Pacemaker interrogation on this admission with appropriate pacemaker function as per Dr. Reed -on metoprolol -given IV Lasix 20 mg IV on 12/05/2019 because of volume overload from treating acute kidney injury with IV fluids on this admission, stop the IV fluids on 12/04 -12/05/2019 to 12/06/2019 update: THE DIFLUCAN HAS INCREASED THE INR WHILE PATIENT WAS ON IV HEPARIN BRIDGE WITH COUMADIN with INR rising rapidly on 12/05/2019 - systemic anticoagulation was temporarily held then INR reversed for toe amputation surgery, -resumed coumadin as 5 mg daily starting on 12/08/2019, cardiology started heparin IV on 12/09/2019, but INR is 2.5 on 12/10/2019 so IV heparin stopped. warfarin to be redosed as 4 mg daily for now -has been metoprolol oral 50 mg TID, give additional IV metoprolol 5 mg x 1 in AM of 12/21/2019 because of tachycardia and monitor -12/11/2019: cardiology recommends Lasix as 60 mg IV BID and maintain creatinine to around 2, with metoprolol 50 mg q6 hours ; therapeutic INR on coumadin. INR is 3 on 12/11/2019, continue coumadin as 2 mg daily for now and titrate coumadin as needed to target 2 to 3 (9) DM (diabetes mellitus): Type 2 diabetes mellitus with alf current use of insulin with complications -complications of diabetic ulcer of 2nd toe on left foot with osteomyelitis has been treated with amputation and IV antibiotics -Hba1c 7.8 -continue current insulin subcutaneously (10) DVT prophylaxis: -therapeutic INR on coumadin. INR is 3 on 12/11/2019, continue coumadin as 2 mg daily for now and titrate coumadin as needed to target 2 to 3 Admission and Anticipated Discharge Date Admission Date: November 26, 2019 Subjective Patient sitting in a chair, in no acute distress. Denies any fevers, chills, chest pain, shortness of breath, abdominal pain, nausea or vomiting. Seen by nephrology earlier this morning, agree with cardiology with Lasix 60 mg twice daily. Patient still have some upper and lower extremity edema. Review of Systems Review of Systems: All systems reviewed & are unremarkable except as noted in HPI & below Constitutional: no fever and no chills Respiratory: no cough and no dyspnea Cardiovascular: no chest pain and no palpitations Gastrointestinal: no abdominal pain, no nausea and no vomiting Physical Exam Physical Exam: Constitutional: Elderly male sitting up in a chair, in no acute distress,comfortable Eyes: PERRL, conjunctivae normal, anicteric sclerae EOM intact bilaterally ENMT: external ear and nose normal, oropharynx normal Neck: normal visual inspection Respiratory: normal respiratory effort, CTAB no wheezing, rhonchi or crackles noted Cardiovascular: Rate/Rhythm: RRR, no murmur, 1+ bilateral pretibial edema and upper extremity edema Gastrointestinal (Abdomen): normal bowel sounds, soft, nontender to palpation, mildly distended Musculoskeletal: Head/Neck/Chest: normocephalic and head atraumatic bilateral lower extremity edema. left foot in dressing Neurologic: PERRL, EOMI, accommodation nl, no face palsy, no dysarthria CN's II-XI intact bilaterally, moves extremities spontaneously Psychiatric: A+Ox3, euthymic affect Results & Data Results & Data ([facility]) Vital Signs (Past 12 Hours) Vital Signs Temp Pulse Resp BP BP Pulse Ox 12/12/19 07:57 37 C 95 H 18 147/78 H 96 12/12/19 03:53 36.7 C 88 19 112/77 95 12/11/19 23:42 36.8 C 83 18 128/79 95 Laboratory Results 12/12/19 12/12/19 12/12/19 Range/Units 07:27 06:54 06:54 WBC (4.8-10.8) K/uL RBC (4.7-6.1) M/uL Hgb (14.0-18.0) g/dL Hct (42-52) % MCV (80-100) fL MCH (25-34) pg MCHC (32-36) g/dL RDW Std Deviation (36.4-46.3) fL RDW Coeff of Cristela (11.5-14.5) % Plt Count (130-400) K/uL MPV (7.4-10.4) fL Immature Gran % (Auto) % Neut % (Auto) % Lymph % (Auto) % [place] % (Auto) % Eos % (Auto) % Baso % (Auto) % Immature Gran # (Auto) (0.00-0.02) K/uL Neut # (Auto) (1.4-6.5) K/uL Lymph # (Auto) (1.2-3.4) K/uL [place] # (Auto) (0.11-0.59) K/uL Eos # (Auto) (0-0.5) K/uL Baso # (Auto) (0-0.2) K/uL PT 25.6 H (9.0-12.0) Seconds INR 2.6 H (0.9-1.1) Sodium 143 (136-145) mmol/L Potassium 3.8 (3.5-5.1) mmol/L Chloride 110 H (98-107) mmol/L Carbon Dioxide 26 (21-32) mmol/L Anion Gap 7.0 (3-11) BUN 29 H (7-18) mg/dl Creatinine 2.05 H (0.6-1.4) mg/dl Est Cr Clr Drug Dosing 51.7 ml/min Est GFR ( Amer) 40.5 Est GFR (Non-Af Amer) 34.9 BUN/Creatinine Ratio 14.1 (10-20) Glucose 94 (70-99) mg/dl POC Glucose 90 (70-99) mg/dl Calcium 7.9 L (8.5-10.1) mg/dl Total Bilirubin 0.3 (0.2-1) mg/dl AST 16 (15-37) U/L ALT 6 L (12-78) U/L Alkaline Phosphatase 87 (45-117) U/L Total Protein 6.1 L (6.4-8.2) gm/dl Albumin 1.8 L (3.4-5.0) gm/dl Globulin 4.3 H (2.5-4.0) gm/dl Albumin/Globulin Ratio 0.4 L (0.9-2) 12/12/19 12/11/19 12/11/19 Range/Units 06:54 20:30 16:41 WBC 5.67 (4.8-10.8) K/uL RBC 2.96 L (4.7-6.1) M/uL Hgb 8.3 L (14.0-18.0) g/dL Hct 26.1 L (42-52) % MCV 88.2 (80-100) fL MCH 28.0 (25-34) pg MCHC 31.8 L (32-36) g/dL RDW Std Deviation 51.2 H (36.4-46.3) fL RDW Coeff of Cristela 15.7 H (11.5-14.5) % Plt Count 218 (130-400) K/uL MPV 9.0 (7.4-10.4) fL Immature Gran % (Auto) 0.4 % Neut % (Auto) 60.4 % Lymph % (Auto) 25.6 % [place] % (Auto) 10.8 % Eos % (Auto) 1.4 % Baso % (Auto) 1.4 % Immature Gran # (Auto) 0.02 (0.00-0.02) K/uL Neut # (Auto) 3.43 (1.4-6.5) K/uL Lymph # (Auto) 1.45 (1.2-3.4) K/uL [place] # (Auto) 0.61 H (0.11-0.59) K/uL Eos # (Auto) 0.08 (0-0.5) K/uL Baso # (Auto) 0.08 (0-0.2) K/uL PT (9.0-12.0) Seconds INR (0.9-1.1) Sodium (136-145) mmol/L Potassium (3.5-5.1) mmol/L Chloride (98-107) mmol/L Carbon Dioxide (21-32) mmol/L Anion Gap (3-11) BUN (7-18) mg/dl Creatinine (0.6-1.4) mg/dl Est Cr Clr Drug Dosing ml/min Est GFR ( Amer) Est GFR (Non-Af Amer) BUN/Creatinine Ratio (10-20) Glucose (70-99) mg/dl POC Glucose 93 168 H (70-99) mg/dl Calcium (8.5-10.1) mg/dl Total Bilirubin (0.2-1) mg/dl AST (15-37) U/L ALT (12-78) U/L Alkaline Phosphatase (45-117) U/L Total Protein (6.4-8.2) gm/dl Albumin (3.4-5.0) gm/dl Globulin (2.5-4.0) gm/dl Albumin/Globulin Ratio (0.9-2) 12/11/19 Range/Units 11:35 WBC (4.8-10.8) K/uL RBC (4.7-6.1) M/uL Hgb (14.0-18.0) g/dL Hct (42-52) % MCV (80-100) fL MCH (25-34) pg MCHC (32-36) g/dL RDW Std Deviation (36.4-46.3) fL RDW Coeff of Cristela (11.5-14.5) % Plt Count (130-400) K/uL MPV (7.4-10.4) fL Immature Gran % (Auto) % Neut % (Auto) % Lymph % (Auto) % [place] % (Auto) % Eos % (Auto) % Baso % (Auto) % Immature Gran # (Auto) (0.00-0.02) K/uL Neut # (Auto) (1.4-6.5) K/uL Lymph # (Auto) (1.2-3.4) K/uL [place] # (Auto) (0.11-0.59) K/uL Eos # (Auto) (0-0.5) K/uL Baso # (Auto) (0-0.2) K/uL PT (9.0-12.0) Seconds INR (0.9-1.1) Sodium (136-145) mmol/L Potassium (3.5-5.1) mmol/L Chloride (98-107) mmol/L Carbon Dioxide (21-32) mmol/L Anion Gap (3-11) BUN (7-18) mg/dl Creatinine (0.6-1.4) mg/dl Est Cr Clr Drug Dosing ml/min Est GFR ( Amer) Est GFR (Non-Af Amer) BUN/Creatinine Ratio (10-20) Glucose (70-99) mg/dl POC Glucose 157 H (70-99) mg/dl Calcium (8.5-10.1) mg/dl Total Bilirubin (0.2-1) mg/dl AST (15-37) U/L ALT (12-78) U/L Alkaline Phosphatase (45-117) U/L Total Protein (6.4-8.2) gm/dl Albumin (3.4-5.0) gm/dl Globulin (2.5-4.0) gm/dl Albumin/Globulin Ratio (0.9-2) Medications Administered Current Inpatient Medications Acetaminophen (Tylenol) 325 mg PO Q6H PRN PRN Reason: Pain or Fever Stop: 12/26/19 16:14 Atorvastatin Calcium (Lipitor) 40 mg PO QAM YULI Stop: 01/01/20 08:59 Last Admin: 12/12/19 08:49 Dose: 40 mg Documented by: Bisacodyl (Dulcolax) 10 mg MO DAILY PRN PRN Reason: Constipation Stop: 01/06/20 18:16 Dextrose (Dextrose 50%) 25 - 50 ml IV UD PRN; Protocol PRN Reason: Hypoglycemia Protocol Stop: 12/26/19 16:14 Diphenhydramine HCl (Benadryl Capsule) 25 mg PO Q8H PRN PRN Reason: Itching Stop: 01/06/20 18:16 Docusate Sodium (Colace) 100 mg PO BID YULI Stop: 01/06/20 20:59 Last Admin: 12/12/19 08:49 Dose: 100 mg Documented by: Glucagon (Glucagen) 1 mg SQ UD PRN; Protocol PRN Reason: Hypoglycemia Protocol Stop: 12/26/19 16:14 Glucose (Dex4 Glucose) 4 - 8 tabs PO UD PRN; Protocol PRN Reason: Hypoglycemia Protocol Stop: 12/26/19 16:14 Glucose (Glucose 40%) 15 - 30 gm PO UD PRN; Protocol PRN Reason: Hypoglycemia Protocol Stop: 12/26/19 16:14 Heparin Sodium (Beef Lung) (Heparin Sod 10 Unit/Ml Flush) 5 ml FLUSH PRN PRN PRN Reason: Flush Stop: 12/29/19 12:58 Last Admin: 11/29/19 13:24 Dose: 5 ml Documented by: Hydromorphone HCl (Dilaudid) 0.25 mg IV Q6H PRN PRN Reason: Severe Pain Stop: 12/22/19 13:34 Cefazolin Sodium (Ancef 2000mg) 2,000 mg in 15 mls @ 2.5 mls/min IV Q8H [facility]; Protocol Stop: 12/15/19 13:59 Last Admin: 12/12/19 06:11 Dose: 2.5 mls/min Documented by: Furosemide 60 mg/ Syringe 6 mls @ 4 mls/min IV BID17 [facility] Stop: 01/10/20 16:59 Last Admin: 12/12/19 08:49 Dose: 4 mls/min Documented by: Insulin Aspart (Novolog Flexpen) 0 units SC ACHS [facility]; Protocol Stop: 01/02/20 16:29 Last Admin: 12/12/19 08:50 Dose: 6 units Documented by: Insulin Glargine (Lantus Solostar Pen) 17 units SC HS [facility]; Protocol Stop: 01/08/20 20:59 Last Admin: 12/11/19 21:36 Dose: 17 units Documented by: Magnesium Hydroxide (Milk Of Magnesia) 30 ml PO Q6H PRN PRN Reason: Constipation Stop: 01/06/20 18:16 Metoclopramide HCl (Reglan) 10 mg IV Q6H PRN PRN Reason: Nausea And Vomiting Stop: 01/06/20 18:16 Metoprolol Tartrate (Lopressor) 50 mg PO Q6H [facility] Stop: 01/10/20 12:59 Last Admin: 12/12/19 08:48 Dose: 50 mg Documented by: Miscellaneous (Carbohydrates For Hypoglycemia) 15 - 30 gm PO UD PRN PRN Reason: Hypoglycemia Protocol Stop: 12/26/19 16:14 Miscellaneous Information (Consult Glycemic Management Pharmacy) 1 ea N/A UD PRN PRN Reason: Consult Stop: 12/28/19 10:07 Miscellaneous Information (Pharmacy Consult) 1 ea N/A UD PRN PRN Reason: Consult Stop: 12/30/19 10:38 Multivitamins (Multivitamin Tab) 1 tab PO QAM [facility] Stop: 01/07/20 08:59 Last Admin: 12/12/19 08:49 Dose: 1 tab Documented by: Naloxone HCl (Narcan) 0.1 mg IV Q5M PRN PRN Reason: Oversedation/Resp Depression Stop: 01/06/20 18:16 Ondansetron HCl (Zofran) 4 mg IV Q6H PRN PRN Reason: Nausea And Vomiting Stop: 01/06/20 18:16 Pantoprazole Sodium (Protonix) 40 mg PO BID [facility] Stop: 01/07/20 20:59 Last Admin: 12/12/19 08:48 Dose: 40 mg Documented by: Sennosides (Senokot) 17.2 mg PO [facility] Stop: 01/06/20 20:59 Last Admin: 12/11/19 21:34 Dose: 17.2 mg Documented by: Sucralfate (Carafate) 1 gm PO QID [facility] Stop: 12/27/19 12:59 Last Admin: 12/12/19 08:50 Dose: 1 gm Documented by: Tamsulosin HCl (Flomax) 0.4 mg PO [facility] Stop: 01/08/20 20:59 Last Admin: 12/11/19 21:34 Dose: 0.4 mg Documented by: Warfarin Sodium (Coumadin) 2 mg PO DAILY@1600 [facility] Stop: 01/09/20 15:59 Last Admin: 12/10/19 17:06 Dose: 2 mg Documented by: (1) Nausea and vomiting Vomiting Intractability: unspecified Vomiting type: unspecified Qualified Code(s): R11.2 - Nausea with vomiting, unspecified
[2019-12-12] MEDS ORDERED: metOLazone 5 MG TABLET PO ONE (09:02)
--- NOTE | 2019-12-12 09:03 | Nephrology Progress Note ---
Date of Service December 12, 2019 Assessment & Plan (1) TITA (acute kidney injury): nonoliguric TITA w/ baseline creatinine 1.2 as of July 2019 from multifactorial ATN>> he presented with septic shock and MSSA bacteremia w/ splenic infarcts/septic emboli from diabetic foot ulcer; he was already in renal failure on arrival and then needed 2 IV contrast dye loads for CT scan on admission and L heart cath November 27; Creatinine peaked at 5.4 on 11/28 and now stabilized around 2; electrolytes are stable but he is grossly volume overload. -Agree with the Lasix 60 mg twice daily. -We will add metolazone 5 mg once today to increase diuresis aiming for net negative at least 1 L daily -Daily standing weight (2) MSSA bacteremia: Status post daptomycin and Zosyn; 4/4 bottles on 11/25 +; TTE w/o vegetation or new WMA; suspect splenic infarcts are septic emboli -Continue Ancef per primary team. Patient s/p amputation of the second toe on 12/07/2019 Admission and Anticipated Discharge Date Admission Date: November 26, 2019 Subjective Patient feels better denies any shortness of breath. His main complaint is swelling of his legs and trunk. Left foot wound is being dressed. Creatinine stable around 2. He was net -700 mL in 24 hours. Review of Systems Review of Systems: All systems reviewed & are unremarkable except as noted in HPI & below Physical Exam Physical Exam: General exam: Appears comfortable, no acute distress HEENT: Pupils are equal and reactive to light Neck: No JVD, neck is supple trachea is midline Respiratory system: Crackles in the bases bilaterally. Gastrointestinal: Abdomen is soft, non distended, non tender, bowel sounds are present CVS: Regular rate and rhythm. No murmurs, rubs or gallops Musculoskeletal: No joint or muscle tenderness Extremities: Non tender, 2+ edema, peripheral pulses are present, left foot dressed Neuro: Oriented, no tremors, no focal neurological deficits Skin: No rashes Results & Data ([facility]) Vital Signs (Past 12 Hours) Vital Signs Temp Pulse Resp BP BP Pulse Ox 12/12/19 07:57 37 C 95 H 18 147/78 H 96 12/12/19 03:53 36.7 C 88 19 112/77 95 12/11/19 23:42 36.8 C 83 18 128/79 95 Laboratory Results 12/12/19 06:54 12/12/19 12/12/19 06:54 06:54 WBC 5.67 RBC 2.96 L MCV 88.2 MCH 28.0 MCHC 31.8 L RDW Std Deviation 51.2 H RDW Coeff of Cristela 15.7 H Plt Count 218 MPV 9.0 Albumin 1.8 L
--- NOTE | 2019-12-12 13:52 | Cardiology Progress Note ---
Date of Service December 12, 2019 Assessment & Plan (1) Acute on chronic heart failure with reduced ejection fraction and diastolic dysfunction: (2) Atrial fibrillation: (3) NICM (nonischemic cardiomyopathy): (4) Renal insufficiency: (5) Presence of biventricular implantable cardioverter-defibrillator (ICD): Maintain negative fluid balance. Continue Lasix 60 mg twice daily. Follow fluid balance, daily weight, electrolytes, and GFR daily. Discussed with nursing staff, patient will be weighed via bedside scale daily. <2gm daily sodium restriction recommended. Continue metoprolol to 50 mg every 6hrs. INR 2.6 today. Restart Coumadin, 2 mg daily. Entresto on hold since admission due to renal insufficiency. Subjective Patient seen and examined at the bedside. Fluid balance is negative with titration of Lasix to 60 mg twice daily. Much of his urine output is not being collected. Patient denies chest pain or shortness of breath at rest. Heart rate controlled per telemetry at rest, however, A. fib with RVR present with minimal activity. Patient denies palpitations, lightheadedness, or dizziness. Review of Systems Review of Systems: All systems reviewed & are unremarkable except as noted in HPI & below Physical Exam Constitutional: well developed, + ill appearing and + obese Respiratory: no respiratory distress, no labored breathing and no retractions Auscultation: + rales (Bilateral bases); no crackles, no rhonchi and no wheezes Cardiovascular: Rate/Rhythm: + irregularly irregular Heart Sounds: normal S1 and normal S2; no murmur Vessels: + JVD; no carotid bruit Extremities: + edema (2+ bilateral pretibial edema, 1+ b/L upper extremity edema) Gastrointestinal (Abdomen): Inspection/Auscultation: abdomen normal to inspection and normal bowel sounds; abdomen not distended Percussion/Palpation: abdomen soft; abdomen nontender, no guarding and abdomen not rigid Skin: no rashes, warm and dry Neurologic: moves all extremities; no focal motor deficits Psychiatric: A+Ox3, euthymic affect Results & Data Vital Signs (Past 12 Hours) Vital Signs Temp Pulse Pulse Pulse Resp BP BP 12/12/19 11:25 37.0 C 88 20 131/77 12/12/19 08:25 75 12/12/19 07:57 37 C 95 H 18 147/78 H 12/12/19 03:53 36.7 C 88 19 112/77 Pulse Ox 12/12/19 11:25 98 12/12/19 08:25 12/12/19 07:57 96 12/12/19 03:53 95 (1) Atrial fibrillation Atrial fibrillation type: paroxysmal Qualified Code(s): I48.0 - Paroxysmal atrial fibrillation
[2019-12-12] MEDS: WARFARIN SOD 2 MG TAB PO SCH (17:02)
[2019-12-12] MEDS: SENNA 8.6 MG TAB PO SCH (20:14)
[2019-12-12] MEDS: TAMSULOSIN HCL 0.4 MG CAP PO SCH (20:15)
[2019-12-12] MEDS: INSULIN GLARGINE SOLOSTAR 100 UNITS/ML 3 ML PEN SC SCH (20:47)
[2019-12-13] MEDS: METOPROLOL TARTRATE 50 MG TAB PO SCH ×5 (00:08→23:39)
[2019-12-13] MEDS: CEFAZOLIN 2000MG 2,000 MG/15 ML SYR IV SCH ×3 (05:39→21:14)
[2019-12-13 06:08] LABS: INR 2.3 (0.9-1.1); Prothrombin Time 22.8 Seconds (9.0-12.0)
[2019-12-13 06:33] LABS: BUN Creatinine Ratio 15.3 (10-20); Calcium 7.9 mg/dl (8.5-10.1); Creatinine Clr Calc Pharmacy 51.8 ml/min; Est GFR (Non-African American) 31.9; Magnesium 1.6 mg/dl (1.8-2.4); Potassium 3.6 mmol/L (3.5-5.1)
[2019-12-13 06:34] LABS: Phosphorus 3.9 mg/dl (2.5-4.9)
--- NOTE | 2019-12-13 07:43 | Hospitalist Progress Note ---
Date of Service December 13, 2019 Assessment & Plan (1) Septic shock: septic shock secondary to MSSA (Methicillin-sensitive Staphylococcus aureus) bacteremia due to Left foot toe nonhealing wound from Diabetes Mellitus type 2 with osteomyelitis of the toe status post amputation of 2nd Toe on left foot on 12/07/2019 -Patient is a 59-year-old male with history of nonischemic cardiomyopathy, status post AICD pacemaker placement, diabetes type 2, hypertension, presented with nausea vomiting abdominal pain and required ICU admission for for septic shock -on this stay, patient was transitioned from Dapto and Zosyn to cefazolin IV by day 2 for MSSA bacteremia, continue the IV cefazolin 2g q8 hrs -as patient has improved, hospitalist have re-consulted orthopedics as of 12/05/2019 to consider performing toe amputation on this hospital stay for definitive treatment of osteomyelitis with concurrent IV antibiotics. status post amputation of 2nd Toe on left foot on 12/07/2019 -12/08/2019: continue IV antibiotics of cefazolin 2000 mg q8 hours and wound care of amputated area -Non Weight Bearing of left lower extremity as per orthopedics, will need further PT/OT evaluations but patient may benefit to go to physical rehabilitation center after hospital stay, give intermittent IV Lasix to help with lower extremity edema to help with ambulation (Lasix 20 mg IV ordered on 12/09/2019, and 40 mg IV for 12/10/2019) now transitioned to 60 mg of Lasix twice daily -12/11/2019: cardiology recommends Lasix as 60 mg IV BID and maintain creatinine to around 2, with metoprolol 50 mg q6 hours -Metolazone was added to help with diuresis (2) Splenic infarct: -as noted on admission CT scan -Likely secondary to above versus embolic secondary to underlying Atrial fibrillation -patient has been systemically anticoagulated during this hospital stay in general (3) Duodenitis: Esophagitis -as noted on admission CT scan -s/p EGD with esophagitis as well as duodenitis -continue p.o. Protonix and carafate -patient was on Diflucan, and is stopped on 12/04/2019 because it affected the INR while patient on wafrain with IV heparin bridge (4) Nausea and vomiting: -resolved (5) TITA (acute kidney injury): -present on admission -creatinine has improved and the IV fluids with bicarbonate is stopped on 12/05/2019 -Baseline creatinine about 1.2, during this admission peaked up to 5, now stable at 2 -Nephrology following (6) HTN (hypertension): -septic shock resolved, on Metoprolol (7) NICM (nonischemic cardiomyopathy): (8) CHF (congestive heart failure): Atrial Fibrillation Presence of ICD -Chronic Systolic Congestive heart failure and s/p ICD placement in July 2019 Acute on chronic heart failure with reduced ejection fraction and diastolic dysfunction -Pacemaker interrogation on this admission with appropriate pacemaker function as per Dr. Reed -on metoprolol -given IV Lasix 20 mg IV on 12/05/2019 because of volume overload from treating acute kidney injury with IV fluids on this admission, stop the IV fluids on 12/05/2019 -12/05/2019 to 12/06/2019 update: THE DIFLUCAN HAS INCREASED THE INR WHILE PATIENT WAS ON IV HEPARIN BRIDGE WITH COUMADIN with INR rising rapidly on 12/05/2019 - systemic anticoagulation was temporarily held then INR reversed for toe amputation surgery, -resumed coumadin as 5 mg daily starting on 12/08/2019, cardiology started heparin IV on 12/09/2019, but INR is 2.5 on 12/10/2019 so IV heparin stopped. warfarin to be redosed as 4 mg daily for now -has been metoprolol oral 50 mg TID, give additional IV metoprolol 5 mg x 1 in AM of 12/21/2019 because of tachycardia and monitor -12/11/2019: cardiology recommends Lasix as 60 mg IV BID and maintain creatinine to around 2, with metoprolol 50 mg q6 hours ; therapeutic INR on coumadin. INR is 3 on 12/11/2019, continue coumadin as 2 mg daily for now and titrate coumadin as needed to target 2 to 3 -Metolazone added to help with diuresis -<2gm daily sodium restriction recommended Patient is not a candidate for ALEXANDR inhibitor, ARB, Entresto, or Aldactone due to renal insufficiency. Treated with Entresto prior to admission. 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 INR is 3 on 12/11/2019, continue coumadin as 2 mg daily for now and titrate coumadin as needed to target 2 to 3 Admission and Anticipated Discharge Date Admission Date: November 26, 2019 Subjective No acute is overnight. Patient is sitting up in the chair, in no acute distress. Fluid balance -2.7 L with addition of metolazone. Creatinine trending upward slightly. Improved edema of his upper extremities. Lower extr emity edema unchanged. Weight is down 1.3 kg. Telemetry - rate controlled atrial fibrillation. Patient is not a candidate for ALEXANDR inhibitor, ARB, Entresto, or Aldactone due to renal insufficiency. Treated with Entresto prior to admission. Cardiology and nephrology following. Review of Systems Review of Systems: All systems reviewed & are unremarkable except as noted in HPI & below Constitutional: no fever and no chills Respiratory: no cough and no dyspnea Cardiovascular: + edema (Improved in upper extremities); no chest pain and no palpitations Gastrointestinal: no abdominal pain, no nausea and no vomiting Physical Exam Physical Exam: Constitutional: Elderly male sitting up in a chair, in no acute distress,comfortable Eyes: PERRL, conjunctivae normal, anicteric sclerae EOM intact bilaterally ENMT: external ear and nose normal, oropharynx normal Neck: normal visual inspection Respiratory: normal respiratory effort, CTAB no wheezing, rhonchi + mild b/l crackles noted Cardiovascular: Rate/Rhythm: RRR, no murmur, 1+ bilateral pretibial edema and upper extremity edema Gastrointestinal (Abdomen): normal bowel sounds, soft, nontender to palpation, mildly distended Musculoskeletal: Head/Neck/Chest: normocephalic and head atraumatic bilateral lower extremity edema. left foot in dressing Neurologic: PERRL, EOMI, accommodation nl, no face palsy, no dysarthria CN's II-XI intact bilaterally, moves extremities spontaneously Psychiatric: A+Ox3, euthymic affect Results & Data Results & Data ([facility]) Vital Signs (Past 12 Hours) Vital Signs Temp Pulse Pulse Resp BP Pulse Ox 12/13/19 03:10 36.7 C 68 20 143/66 H 95 12/13/19 00:00 74 12/12/19 23:35 36.8 C 74 19 146/79 H 90 12/12/19 20:01 36.6 C 73 18 151/81 H 97 Laboratory Results 12/13/19 12/13/19 12/13/19 Range/Units 07:15 05:46 05:46 PT 22.8 H (9.0-12.0) Seconds INR 2.3 H (0.9-1.1) Sodium 140 (136-145) mmol/L Potassium 3.6 (3.5-5.1) mmol/L Chloride 109 H (98-107) mmol/L Carbon Dioxide 26 (21-32) mmol/L Anion Gap 6.0 (3-11) BUN 34 H (7-18) mg/dl Creatinine 2.21 H (0.6-1.4) mg/dl Est Cr Clr Drug Dosing 51.8 ml/min Est GFR ( Amer) 37.0 Est GFR (Non-Af Amer) 31.9 BUN/Creatinine Ratio 15.3 (10-20) Glucose 71 (70-99) mg/dl POC Glucose 87 (70-99) mg/dl Calcium 7.9 L (8.5-10.1) mg/dl Phosphorus 3.9 (2.5-4.9) mg/dl Magnesium 1.6 L (1.8-2.4) mg/dl Total Bilirubin (0.2-1) mg/dl Alkaline Phosphatase (45-117) U/L Total Protein (6.4-8.2) gm/dl Globulin (2.5-4.0) gm/dl Albumin/Globulin Ratio (0.9-2) 12/12/19 12/12/19 12/12/19 Range/Units 20:32 16:19 11:17 PT (9.0-12.0) Seconds INR (0.9-1.1) Sodium (136-145) mmol/L Potassium (3.5-5.1) mmol/L Chloride (98-107) mmol/L Carbon Dioxide (21-32) mmol/L Anion Gap (3-11) BUN (7-18) mg/dl Creatinine (0.6-1.4) mg/dl Est Cr Clr Drug Dosing ml/min Est GFR ( Amer) Est GFR (Non-Af Amer) BUN/Creatinine Ratio (10-20) Glucose (70-99) mg/dl POC Glucose 116 H 133 H 132 H (70-99) mg/dl Calcium (8.5-10.1) mg/dl Phosphorus (2.5-4.9) mg/dl Magnesium (1.8-2.4) mg/dl Total Bilirubin (0.2-1) mg/dl Alkaline Phosphatase (45-117) U/L Total Protein (6.4-8.2) gm/dl Globulin (2.5-4.0) gm/dl Albumin/Globulin Ratio (0.9-2) 12/12/19 Range/Units 06:54 PT (9.0-12.0) Seconds INR (0.9-1.1) Sodium (136-145) mmol/L Potassium (3.5-5.1) mmol/L Chloride (98-107) mmol/L Carbon Dioxide (21-32) mmol/L Anion Gap (3-11) BUN (7-18) mg/dl Creatinine (0.6-1.4) mg/dl Est Cr Clr Drug Dosing ml/min Est GFR ( Amer) Est GFR (Non-Af Amer) BUN/Creatinine Ratio (10-20) Glucose (70-99) mg/dl POC Glucose (70-99) mg/dl Calcium (8.5-10.1) mg/dl Phosphorus (2.5-4.9) mg/dl Magnesium (1.8-2.4) mg/dl Total Bilirubin 0.3 (0.2-1) mg/dl Alkaline Phosphatase 87 (45-117) U/L Total Protein 6.1 L (6.4-8.2) gm/dl Globulin 4.3 H (2.5-4.0) gm/dl Albumin/Globulin Ratio 0.4 L (0.9-2) Medications Administered Current Inpatient Medications Acetaminophen (Tylenol) 325 mg PO Q6H PRN PRN Reason: Pain or Fever Stop: 12/26/19 16:14 Atorvastatin Calcium (Lipitor) [facility] [place] Stop: 01/01/20 08:59 Last Admin: 12/12/19 08:49 Dose: 40 mg Documented by: Bisacodyl (Dulcolax) 10 mg HI DAILY PRN PRN Reason: Constipation Stop: 01/06/20 18:16 Dextrose (Dextrose 50%) 25 - 50 ml IV UD PRN; Protocol PRN Reason: Hypoglycemia Protocol Stop: 12/26/19 16:14 Diphenhydramine HCl (Benadryl Capsule) 25 mg PO Q8H PRN PRN Reason: Itching Stop: 01/06/20 18:16 Docusate Sodium (Colace) 100 mg PO BID YULI Stop: 01/06/20 20:59 Last Admin: 12/12/19 20:14 Dose: 100 mg Documented by: Glucagon (Glucagen) 1 mg SQ UD PRN; Protocol PRN Reason: Hypoglycemia Protocol Stop: 12/26/19 16:14 Glucose (Dex4 Glucose) 4 - 8 tabs PO UD PRN; Protocol PRN Reason: Hypoglycemia Protocol Stop: 12/26/19 16:14 Glucose (Glucose 40%) 15 - 30 gm PO UD PRN; Protocol PRN Reason: Hypoglycemia Protocol Stop: 12/26/19 16:14 Heparin Sodium (Beef Lung) (Heparin Sod 10 Unit/Ml Flush) 5 ml FLUSH PRN PRN PRN Reason: Flush Stop: 12/29/19 12:58 Last Admin: 11/29/19 13:24 Dose: 5 ml Documented by: Hydromorphone HCl (Dilaudid) 0.25 mg IV Q6H PRN PRN Reason: Severe Pain Stop: 12/22/19 13:34 Cefazolin Sodium (Ancef 2000mg) 2,000 mg in 15 mls @ 2.5 mls/min IV Q8H YULI; Protocol Stop: 12/15/19 13:59 Last Admin: 12/13/19 05:39 Dose: 2.5 mls/min Documented by: Furosemide 60 mg/ Syringe 6 mls @ 4 mls/min IV BID17 YULI Stop: 01/10/20 16:59 Last Admin: 12/12/19 17:02 Dose: 4 mls/min Documented by: Insulin Aspart (Novolog Flexpen) 0 units SC ACHS YULI; Protocol Stop: 01/02/20 16:29 Last Admin: 12/12/19 20:49 Dose: 1 units Documented by: Insulin Glargine (Lantus Solostar Pen) 17 units SC HS YULI; Protocol Stop: 01/08/20 20:59 Last Admin: 12/12/19 20:47 Dose: 17 units Documented by: Insulin Glargine (Lantus Solostar Pen) 14 units SC HS YULI; Protocol Stop: 01/12/20 20:59 Magnesium Hydroxide (Milk Of Magnesia) 30 ml PO Q6H PRN PRN Reason: Constipation Stop: 01/06/20 18:16 Magnesium Oxide (Mag-Ox) 400 mg PO BID [facility] Stop: 01/12/20 08:59 Metoclopramide HCl (Reglan) 10 mg IV Q6H PRN PRN Reason: Nausea And Vomiting Stop: 01/06/20 18:16 Metoprolol Tartrate (Lopressor) 50 mg PO Q6H YULI Stop: 01/10/20 12:59 Last Admin: 12/13/19 00:08 Dose: 50 mg Documented by: Miscellaneous (Carbohydrates For Hypoglycemia) 15 - 30 gm PO UD PRN PRN Reason: Hypoglycemia Protocol Stop: 12/26/19 16:14 Miscellaneous Information (Consult Glycemic Management Pharmacy) 1 ea N/A UD PRN PRN Reason: Consult Stop: 12/28/19 10:07 Miscellaneous Information (Pharmacy Consult) 1 ea N/A UD PRN PRN Reason: Consult Stop: 12/30/19 10:38 Multivitamins (Multivitamin Tab) 1 tab PO QAM [facility] Stop: 01/07/20 08:59 Last Admin: 12/12/19 08:49 Dose: 1 tab Documented by: Naloxone HCl (Narcan) 0.1 mg IV Q5M PRN PRN Reason: Oversedation/Resp Depression Stop: 01/06/20 18:16 Ondansetron HCl (Zofran) 4 mg IV Q6H PRN PRN Reason: Nausea And Vomiting Stop: 01/06/20 18:16 Pantoprazole Sodium (Protonix) 40 mg PO BID [facility] Stop: 01/07/20 20:59 Last Admin: 12/12/19 20:14 Dose: 40 mg Documented by: Potassium Chloride (Klor-Con M20) 20 meq PO NOW STA Stop: 12/13/19 07:42 Sennosides (Senokot) 17.2 mg PO HS [facility] Stop: 01/06/20 20:59 Last Admin: 12/12/19 20:14 Dose: 17.2 mg Documented by: Sucralfate (Carafate) 1 gm PO QID [facility] Stop: 12/27/19 12:59 Last Admin: 12/12/19 20:14 Dose: 1 gm Documented by: Tamsulosin HCl (Flomax) 0.4 mg PO HS [facility] Stop: 01/08/20 20:59 Last Admin: 12/12/19 20:15 Dose: 0.4 mg Documented by: Warfarin Sodium (Coumadin) 2 mg PO DAILY@1600 YULI Stop: 01/09/20 15:59 Last Admin: 12/12/19 17:02 Dose: 2 mg Documented by: (1) Nausea and vomiting Vomiting Intractability: unspecified Vomiting type: unspecified Qualified Code(s): R11.2 - Nausea with vomiting, unspecified
[2019-12-13] MEDS: FUROSEMIDE 60 MG in SYRINGE 0 ML IV SCH ×2 (07:46→15:59)
[2019-12-13] MEDS: ATORVASTATIN 40 MG TAB PO SCH (07:48)
[2019-12-13] MEDS: MULTIVITAMIN TAB PO SCH (07:48)
[2019-12-13] MEDS: DOCUSATE SODIUM 100 MG CAP PO SCH ×2 (07:49→20:02)
[2019-12-13] MEDS: PANTOprazole 40 MG TAB PO SCH ×2 (07:49→20:02)
[2019-12-13] MEDS: SUCRALFATE 1 GM/10 ML UDC PO SCH ×4 (07:50→20:02)
[2019-12-13] MEDS: INSULIN ASPART 100 UNITS/ML 3 ML PEN SC SCH ×4 (07:54→21:10)
[2019-12-13] MEDS ORDERED: POTASSIUM CHLORIDE 20 MEQ TABCR PO ONE (08:00)
[2019-12-13] MEDS: MAGNESIUM OXIDE 400 MG TAB PO SCH ×2 (09:38→20:02)
--- NOTE | 2019-12-13 10:15 | Pharmacy Report ---
Glycemic Control Progress Note - Date of Service December 13, 2019 - Scope Glycemic Pharmacist consulted for glycemic control to write orders per [facility] inpatient glycemic control protocol. - Objective Accuchecks BSG(last 24 hours):: 12/12/19 12/12/19 12/12/19 11:17 16:19 20:32 Glucose POC Glucose 132 H 133 H 116 H 12/13/19 12/13/19 05:46 07:15 Glucose 71 POC Glucose 87 HbA1c:: Hemoglobin A1c 7.8 % (4.5-5.6) H 11/27/19 06:40 - Recent Pertinent Medications The patient is currently receiving: * Basal insulin: Lantus 17 units every 24 hours * Correctional Insulin: Novolog Correction per scale ACHS Goal Range: Low 80 mg/dL - High 140 mg/dL Correction Factor: 20 mg/dL/unit * Prandial insulin: Per carb ratio of 1 unit per 6 grams CHO consumed - Outpatient Anti-Diabetic Meds Lantus 20 units HS Metformin Dulaglutide Invokana - Assessment & Plan ASSESSMENT: * See progress note from 11/28/2019 for more background info, in short: * Pt receiving SQ basal bolus insulin regimen for hyperglycemia secondary to baseline DM (outpatient regimen on hold) and Ancef for bacteremia. * Patient is currently receiving an average of 43 units of insulin per day * 17 units of basal insulin * 26 units of prandial/correctional insulin * BSGs ranging 90 - 133 mg/dl over the past 24hrs * Changes needed to insulin regimen: * AM Fasting BSG = 87 mg/dl. This in goal range for patient based on inpatient targets and co-morbidities. The patient's fasting has been trending low the past couple of days. Reduce fasting BSG by 20% to 14 units. * Post-prandial BSGs are in range therefore no changes needed to CF/CR * Total daily dose = ~40 units. PLAN FOR INPATIENT GLYCEMIC CONTROL: * Decreasing Lantus to 14 units SQ BID * Continuing correction factor of 20 mg/dl/unit * Continuing carb ratio of 1 unit per 6 grams CHO consumed * Continuing goal range of Low 110 mg/dL - High 140 mg/dL RECOMMENDATIONS FOR DISCHARGE: * With eGFR below 40 mL/min, recommend d/c Invokana and metformin. * Consider d/c of Trulicity but patient may continue on with close monitoring. * May require increase in Lantus due to d/c of medications above. Thank you.
[2019-12-13] MEDS ORDERED: metOLazone 5 MG TABLET PO ONE (10:38)
--- NOTE | 2019-12-13 10:40 | Nephrology Progress Note ---
Date of Service December 13, 2019 Assessment & Plan (1) TITA (acute kidney injury): nonoliguric TITA w/ baseline creatinine 1.2 as of July 2019 from multifactorial ATN>> he presented with septic shock and MSSA bacteremia w/ splenic infarcts/septic emboli from diabetic foot ulcer; he was already in renal failure on arrival and then needed 2 IV contrast dye loads for CT scan on admission and L heart cath November 27; Creatinine peaked at 5.4 on 11/28 and now stabilized around 2; electrolytes are stable but he is grossly volume overload. Creatinine up to 2.2 from 2 yesterday. He was net -1.8 L. -Agree with the Lasix 60 mg twice daily. -We will add metolazone 5 mg once today to increase diuresis aiming for net negative at least 1 L daily -Daily standing weight (2) MSSA bacteremia: Status post daptomycin and Zosyn; 4/4 bottles on 11/25 +; TTE w/o veg etation or new WMA; suspect splenic infarcts are septic emboli -Continue Ancef per primary team. Patient s/p amputation of the second toe on 12/07/2019 Admission and Anticipated Discharge Date Admission Date: November 26, 2019 Subjective Patient feels better today denies any shortness of breath. Still has significant swelling of the legs and trunk. Creatinine slightly up Review of Systems Review of Systems: All systems reviewed & are unremarkable except as noted in HPI & below Physical Exam Physical Exam: General exam: Appears comfortable, no acute distress HEENT: Pupils are equal and reactive to light Neck: No JVD, neck is supple trachea is midline Respiratory system: Clear breath sounds bilaterally. Gastrointestinal: Abdomen is soft, non distended, non tender, bowel sounds are present CVS: Regular rate and rhythm. No murmurs, rubs or gallops Musculoskeletal: No joint or muscle tenderness Extremities: Non tender, 2+ edema, peripheral pulses are present Neuro: Oriented, no tremors, no focal neurological deficits Skin: No rashes Results & Data ([facility]) Vital Signs (Past 12 Hours) Vital Signs Temp Pulse Pulse Pulse Resp BP BP 12/13/19 08:00 61 12/13/19 07:54 36.7 C 89 18 171/83 H 12/13/19 03:10 36.7 C 68 20 143/66 H 12/13/19 00:00 74 12/12/19 23:35 36.8 C 74 19 146/79 H Pulse Ox 12/13/19 08:00 12/13/19 07:54 91 12/13/19 03:10 95 12/13/19 00:00 12/12/19 23:35 90 Laboratory Results 12/13/19 05:46 12/13/19 05:46 Phosphorus 3.9
[2019-12-13] MEDS: WARFARIN SOD 2 MG TAB PO SCH (15:57)
--- NOTE | 2019-12-13 16:43 | Cardiology Progress Note ---
Date of Service December 13, 2019 Assessment & Plan (1) Acute on chronic heart failure with reduced ejection fraction and diastolic dysfunction: (2) Atrial fibrillation: (3) NICM (nonischemic cardiomyopathy): (4) Renal insufficiency: (5) Presence of biventricular implantable cardioverter-defibrillator (ICD): Continue Lasix 60 mg twice daily. Follow fluid balance, daily weight (bedside standing scale), electrolytes, and GFR. <2gm daily sodium restriction recommended. Continue metoprolol to 50 mg every 6hrs. INR 2.3 today. Continue coumadin, 2 mg daily. Patient is not a candidate for ALEXANDR inhibitor, ARB, Entresto, or Aldactone due to renal insufficiency. Treated with Entresto prior to admission. Subjective Patient seen and examined at the bedside. Fluid balance -2.7 L with addition of metolazone. Creatinine trending upward slightly. Nephrology input appreciated. Patient reports improved edema of his upper extremities. Lower extremity edema unchanged. Weight is down 1.3 kg. Telemetry demonstrates rate controlled atrial fibrillation with an average heart rate of 85 bpm. Review of Systems Review of Systems: All systems reviewed & are unremarkable except as noted in HPI & below Physical Exam Constitutional: well developed, + ill appearing and + obese Respiratory: no respiratory distress, no labored breathing and no retractions Auscultation: + rales (Bilateral bases); no crackles, no rhonchi and no wheezes Cardiovascular: Rate/Rhythm: + irregularly irregular Heart Sounds: normal S1 and normal S2; no murmur Vessels: + JVD; no carotid bruit Extremities: + edema (2+ bilateral pretibial edema, 1+ b/L upper extremity edema) Gastrointestinal (Abdomen): Inspection/Auscultation: abdomen normal to inspection and normal bowel sounds; abdomen not distended Percussion/Palpation: abdomen soft; abdomen nontender, no guarding and abdomen not rigid Skin: no rashes, warm and dry Neurologic: moves all extremities; no focal motor deficits Psychiatric: A+Ox3, euthymic affect Results & Data Vital Signs (Past 12 Hours) Vital Signs Temp Pulse Pulse Pulse Resp BP Pulse Ox 12/13/19 16:00 61 12/13/19 15:59 36.9 C 66 18 123/72 96 12/13/19 12:14 36.7 C 68 20 135/79 96 12/13/19 08:00 61 12/13/19 07:54 36.7 C 89 18 171/83 H 91 (1) Atrial fibrillation Atrial fibrillation type: paroxysmal Qualified Code(s): I48.0 - Paroxysmal atrial fibrillation
[2019-12-13] MEDS: TAMSULOSIN HCL 0.4 MG CAP PO SCH (20:02)
[2019-12-13] MEDS: SENNA 8.6 MG TAB PO SCH (20:02)
[2019-12-13] MEDS ORDERED: INSULIN GLARGINE SOLOSTAR 100 UNITS/ML 3 ML PEN SC SCH (21:00)
[2019-12-14] MEDS: CEFAZOLIN 2000MG 2,000 MG/15 ML SYR IV SCH ×3 (05:16→21:51)
--- NOTE | 2019-12-14 06:53 | Hospitalist Progress Note ---
Date of Service December 14, 2019 Assessment & Plan (1) Septic shock: septic shock secondary to MSSA (Methicillin-sensitive Staphylococcus aureus) bacteremia due to Left foot toe nonhealing wound from Diabetes Mellitus type 2 with osteomyelitis of the toe status post amputation of 2nd Toe on left foot on 12/07/2019 -Patient is a 59-year-old male with history of nonischemic cardiomyopathy, status post AICD pacemaker placement, diabetes type 2, hypertension, presented with nausea vomiting abdominal pain and required ICU admission for for septic shock -on this stay, patient was transitioned from Dapto and Zosyn to cefazolin IV by day 2 for MSSA bacteremia, continue the IV cefazolin 2g q8 hrs -as patient has improved, hospitalist have re-consulted orthopedics as of 12/05/2019 to consider performing toe amputation on this hospital stay for definitive treatment of osteomyelitis with concurrent IV antibiotics. status post amputation of 2nd Toe on left foot on 12/07/2019 -12/08/2019: continue IV antibiotics of cefazolin 2000 mg q8 hours and wound care of amputated area -Non Weight Bearing of left lower extremity as per orthopedics, will need further PT/OT evaluations but patient may benefit to go to physical rehabilitation center after hospital stay, give intermittent IV Lasix to help with lower extremity edema to help with ambulation (Lasix 20 mg IV ordered on 12/09/2019, and 40 mg IV for 12/10/2019) now transitioned to 60 mg of Lasix twice daily -12/11/2019: cardiology recommends Lasix as 60 mg IV BID and maintain creatinine to around 2, with metoprolol 50 mg q6 hours -Metolazone was added to help with diuresis (2) Splenic infarct: -as noted on admission CT scan -Likely secondary to above versus embolic secondary to underlying Atrial fibrillation -patient has been systemically anticoagulated during this hospital stay in general (3) Duodenitis: Esophagitis -as noted on admission CT scan -s/p EGD with esophagitis as well as duodenitis -continue p.o. Protonix and carafate -patient was on Diflucan, and is stopped on 12/04/2019 because it affected the INR while patient on wafrain with IV heparin bridge (4) Nausea and vomiting: -resolved (5) TITA (acute kidney injury): -present on admission -creatinine has improved and the IV fluids with bicarbonate is stopped on 12/05/2019 -Baseline creatinine about 1.2, during this admission peaked up to 5, now stable at 2 -Nephrology following (6) HTN (hypertension): -septic shock resolved, on Metoprolol (7) NICM (nonischemic cardiomyopathy): (8) CHF (congestive heart failure): Atrial Fibrillation Presence of ICD -Chronic Systolic Congestive heart failure and s/p ICD placement in July 2019 Acute on chronic heart failure with reduced ejection fraction and diastolic dysfunction -Pacemaker interrogation on this admission with appropriate pacemaker function as per Dr. Reed -on metoprolol -given IV Lasix 20 mg IV on 12/05/2019 because of volume overload from treating acute kidney injury with IV fluids on this admission, stop the IV fluids on 12/05/2019 -12/05/2019 to 12/06/2019 update: THE DIFLUCAN HAS INCREASED THE INR WHILE PATIENT WAS ON IV HEPARIN BRIDGE WITH COUMADIN with INR rising rapidly on 12/05/2019 - systemic anticoagulation was temporarily held then INR reversed for toe amputation surgery, -resumed coumadin as 5 mg daily starting on 12/08/2019, cardiology started heparin IV on 12/09/2019, but INR is 2.5 on 12/10/2019 so IV heparin stopped. warfarin to be redosed as 4 mg daily for now -has been metoprolol oral 50 mg TID, give additional IV metoprolol 5 mg x 1 in AM of 12/21/2019 because of tachycardia and monitor -12/11/2019: cardiology recommends Lasix as 60 mg IV BID and maintain creatinine to around 2, with metoprolol 50 mg q6 hours ; therapeutic INR on coumadin. INR is 3 on 12/11/2019, continue coumadin as 2 mg daily for now and titrate coumadin as needed to target 2 to 3 -Metolazone added to help with diuresis -<2gm daily sodium restriction recommended Patient is not a candidate for ALEXANDR inhibitor, ARB, Entresto, or Aldactone due to renal insufficiency. Treated with Entresto prior to admission. 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 Admission and Anticipated Discharge Date Admission Date: November 26, 2019 Subjective Patient is diuresing well, creatinine remains stable at 2.2. Upper extremity edema has nearly resolved. Lower extremity edema mildly improving. Patient denies any fevers, chills, chest pain, shortness of breath, abdominal pain, nausea or vomiting. Heart rate controlled on telemetry. INR therapeutic. Review of Systems Review of Systems: All systems reviewed & are unremarkable except as noted in HPI & below All systems reviewed and are unremarkable except as noted below Constitutional: no fever and no chills Respiratory: no cough and no dyspnea Cardiovascular: + edema (Improved in upper extremities); no chest pain and no palpitations Gastrointestinal: no abdominal pain, no nausea and no vomiting Physical Exam Physical Exam: Constitutional: Elderly male sitting up in a chair, in no acute distress,comfortable Eyes: PERRL, conjunctivae normal, anicteric sclerae EOM intact bilaterally ENMT: external ear and nose normal, oropharynx normal Neck: normal visual inspection Respiratory: normal respiratory effort, CTAB no wheezing, rhonchi + mild b/l crackles noted Cardiovascular: Rate/Rhythm: RRR, no murmur, 1+ bilateral pretibial edema and upper extremity edema (improved) Gastrointestinal (Abdomen): normal bowel sounds, soft, nontender to palpation, mildly distended Musculoskeletal: Head/Neck/Chest: normocephalic and head atraumatic bilateral lower extremity edema. left foot in dressing Neurologic: PERRL, EOMI, accommodation nl, no face palsy, no dysarthria CN's II-XI intact bilaterally, moves extremities spontaneously Psychiatric: A+Ox3, euthymic affect Results & Data Results & Data ([facility]) Vital Signs (Past 12 Hours) Vital Signs Temp Pulse Pulse Pulse Resp BP BP 12/14/19 04:23 36.4 C L 75 18 152/79 H 12/13/19 23:56 61 12/13/19 23:47 36.6 C 72 20 152/83 H 12/13/19 19:31 36.7 C 70 18 153/81 H Pulse Ox 12/14/19 04:23 94 12/13/19 23:56 12/13/19 23:47 95 12/13/19 19:31 96 Medications Administered Current Inpatient Medications Acetaminophen (Tylenol) 325 mg PO Q6H PRN PRN Reason: Pain or Fever Stop: 12/26/19 16:14 Atorvastatin Calcium (Lipitor) 40 mg PO QAM YULI Stop: 01/01/20 08:59 Last Admin: 12/13/19 07:48 Dose: 40 mg Documented by: Bisacodyl (Dulcolax) 10 mg PA DAILY PRN PRN Reason: Constipation Stop: 01/06/20 18:16 Dextrose (Dextrose 50%) 25 - 50 ml IV UD PRN; Protocol PRN Reason: Hypoglycemia Protocol Stop: 12/26/19 16:14 Diphenhydramine HCl (Benadryl Capsule) 25 mg PO Q8H PRN PRN Reason: Itching Stop: 01/06/20 18:16 Docusate Sodium (Colace) 100 mg PO BID YULI Stop: 01/06/20 20:59 Last Admin: 12/13/19 20:02 Dose: 100 mg Documented by: Glucagon (Glucagen) 1 mg SQ UD PRN; Protocol PRN Reason: Hypoglycemia Protocol Stop: 12/26/19 16:14 Glucose (Dex4 Glucose) 4 - 8 tabs PO UD PRN; Protocol PRN Reason: Hypoglycemia Protocol Stop: 12/26/19 16:14 Glucose (Glucose 40%) 15 - 30 gm PO UD PRN; Protocol PRN Reason: Hypoglycemia Protocol Stop: 12/26/19 16:14 Heparin Sodium (Beef Lung) (Heparin Sod 10 Unit/Ml Flush) 5 ml FLUSH PRN PRN PRN Reason: Flush Stop: 12/29/19 12:58 Last Admin: 11/29/19 13:24 Dose: 5 ml Documented by: Hydromorphone HCl (Dilaudid) 0.25 mg IV Q6H PRN PRN Reason: Severe Pain Stop: 12/22/19 13:34 Cefazolin Sodium (Ancef 2000mg) 2,000 mg in 15 mls @ 2.5 mls/min IV Q8H YULI; Protocol Stop: 12/15/19 13:59 Last Admin: 12/14/19 05:16 Dose: 2.5 mls/min Documented by: Furosemide 60 mg/ Syringe 6 mls @ 4 mls/min IV [id number] YULI Stop: 01/10/20 16:59 Last Admin: 12/13/19 15:59 Dose: 4 mls/min Documented by: Insulin Aspart (Novolog Flexpen) 0 units SC ACHS [facility]; Protocol Stop: 01/02/20 16:29 Last Admin: 12/13/19 21:10 Dose: Not Given Documented by: Insulin Glargine (Lantus Solostar Pen) 14 units SC HS [facility]; Protocol Stop: 01/12/20 20:59 Last Admin: 12/13/19 21:09 Dose: 14 units Documented by: Magnesium Hydroxide (Milk Of Magnesia) 30 ml PO Q6H PRN PRN Reason: Constipation Stop: 01/06/20 18:16 Magnesium Oxide (Mag-Ox) 400 mg PO BID [facility] Stop: 01/12/20 08:59 Last Admin: 12/13/19 20:02 Dose: 400 mg Documented by: Metoclopramide HCl (Reglan) 10 mg IV Q6H PRN PRN Reason: Nausea And Vomiting Stop: 01/06/20 18:16 Metoprolol Tartrate (Lopressor) 50 mg PO Q6H [facility] Stop: 01/10/20 12:59 Last Admin: 12/13/19 23:39 Dose: 50 mg Documented by: Miscellaneous (Carbohydrates For Hypoglycemia) 15 - 30 gm PO UD PRN PRN Reason: Hypoglycemia Protocol Stop: 12/26/19 16:14 Miscellaneous Information (Consult Glycemic Management Pharmacy) 1 ea N/A UD PRN PRN Reason: Consult Stop: 12/28/19 10:07 Miscellaneous Information (Pharmacy Consult) 1 ea N/A UD PRN PRN Reason: Consult Stop: 12/30/19 10:38 Multivitamins (Multivitamin Tab) 1 tab PO QAM [facility] Stop: 01/07/20 08:59 Last Admin: 12/13/19 07:48 Dose: 1 tab Documented by: Naloxone HCl (Narcan) 0.1 mg IV Q5M PRN PRN Reason: Oversedation/Resp Depression Stop: 01/06/20 18:16 Ondansetron HCl (Zofran) 4 mg IV Q6H PRN PRN Reason: Nausea And Vomiting Stop: 01/06/20 18:16 Pantoprazole Sodium (Protonix) 40 mg PO BID [facility] Stop: 01/07/20 20:59 Last Admin: 12/13/19 20:02 Dose: 40 mg Documented by: Sennosides (Senokot) 17.2 mg PO [facility] Stop: 01/06/20 20:59 Last Admin: 12/13/19 20:02 Dose: 17.2 mg Documented by: Sucralfate (Carafate) 1 gm PO QID [facility] Stop: 12/27/19 12:59 Last Admin: 12/13/19 20:02 Dose: 1 gm Documented by: Tamsulosin HCl (Flomax) 0.4 mg PO [facility] Stop: 01/08/20 20:59 Last Admin: 12/13/19 20:02 Dose: 0.4 mg Documented by: Warfarin Sodium (Coumadin) 2 mg PO DAILY@1600 [facility] Stop: 01/09/20 15:59 Last Admin: 12/13/19 15:57 Dose: 2 mg Documented by: (1) Nausea and vomiting Vomiting Intractability: unspecified Vomiting type: unspecified Qualified Code(s): R11.2 - Nausea with vomiting, unspecified
[2019-12-14] MEDS: MULTIVITAMIN TAB PO SCH (08:03)
[2019-12-14] MEDS: MAGNESIUM OXIDE 400 MG TAB PO SCH ×2 (08:03→20:45)
[2019-12-14] MEDS: ATORVASTATIN 40 MG TAB PO SCH (08:03)
[2019-12-14] MEDS: METOPROLOL TARTRATE 50 MG TAB PO SCH ×3 (08:03→18:01)
[2019-12-14] MEDS: PANTOprazole 40 MG TAB PO SCH ×2 (08:03→20:45)
[2019-12-14] MEDS: SUCRALFATE 1 GM/10 ML UDC PO SCH ×4 (08:04→20:44)
[2019-12-14] MEDS: FUROSEMIDE 60 MG in SYRINGE 0 ML IV SCH ×2 (08:04→17:57)
[2019-12-14] MEDS: DOCUSATE SODIUM 100 MG CAP PO SCH ×2 (08:04→20:45)
[2019-12-14] MEDS: INSULIN ASPART 100 UNITS/ML 3 ML PEN SC SCH ×4 (08:06→20:43)
[2019-12-14 08:48] LABS: BUN Creatinine Ratio 15.2 (10-20); Calcium 8.2 mg/dl (8.5-10.1); Creatinine Clr Calc Pharmacy 50.7 ml/min; Est GFR (African American) 36.8; Est GFR (Non-African American) 31.7; Potassium 3.5 mmol/L (3.5-5.1)
[2019-12-14 09:16] LABS: INR 2.4 (0.9-1.1); Prothrombin Time 23.9 Seconds (9.0-12.0)
--- NOTE | 2019-12-14 11:08 | Nephrology Progress Note ---
Date of Service December 14, 2019 Assessment & Plan (1) TITA (acute kidney injury): nonoliguric TITA w/ baseline creatinine 1.2 as of July 2019 from multifactorial ATN>> he presented with septic shock and MSSA bacteremia w/ splenic infarcts/septic emboli from diabetic foot ulcer; he was already in renal failure on arrival and then needed 2 IV contrast dye loads for CT scan on admission and L heart cath November 27; Creatinine peaked at 5.4 on 11/28 and now stabilized around 2.2; electrolytes are stable but he is grossly volume overload. He was net -2.6 L. -Agree with the Lasix 60 mg twice daily. -We will add metolazone 5 mg once today to increase diuresis aiming for net negative at least 1 L daily -Daily standing weight (2) MSSA bacteremia: Status post daptomycin and Zosyn; 4/4 bottles on 11/25 +; TTE w/o vegetation or new WMA; suspect splenic infarcts are septic emboli -Continue Ancef per primary team. Patient s/p amputation of the second toe on 12/07/2019 Admission and Anticipated Discharge Date Admission Date: November 26, 2019 Subjective Patient feels better today. He was net -2.6 L. He continues to diurese well. No shortness of breath. Review of Systems Review of Systems: All systems reviewed & are unremarkable except as noted in HPI & below Physical Exam Physical Exam: General exam: Appears comfortable, no acute distress HEENT: Pupils are equal and reactive to light Neck: No JVD, neck is supple trachea is midline Respiratory system: Clear breath sounds bilaterally. Gastrointestinal: Abdomen is soft, non distended, non tender, bowel sounds are present CVS: Regular rate and rhythm. No murmurs, rubs or gallops Musculoskeletal: No joint or muscle tenderness Extremities: Non tender, 2+ edema, peripheral pulses are present Neuro: Oriented, no tremors, no focal neurological deficits Skin: No rashes Results & Data ([facility]) Vital Signs (Past 12 Hours) Vital Signs Temp Pulse Pulse Resp BP BP Pulse Ox 12/14/19 08:21 36.8 C 71 18 166/72 H 92 12/14/19 04:23 36.4 C L 75 18 152/79 H 94 12/13/19 23:56 61 12/13/19 23:47 36.6 C 72 20 152/83 H 95 Laboratory Results 12/14/19 08:04
--- NOTE | 2019-12-14 11:23 | Pharmacy Report ---
Glycemic Control Progress Note - Date of Service December 14, 2019 - Scope Glycemic Pharmacist consulted for glycemic control to write orders per [facility] inpatient glycemic control protocol. - Objective Accuchecks BSG(last 24 hours):: 12/13/19 12/13/19 12/14/19 16:50 20:23 07:56 Glucose POC Glucose 142 H 130 H 87 12/14/19 08:04 Glucose 77 POC Glucose HbA1c:: Hemoglobin A1c 7.8 % (4.5-5.6) H 11/27/19 06:40 - Recent Pertinent Medications The patient is currently receiving: * Basal insulin: Lantus 14 units every 24 hours * Correctional Insulin: Novolog Correction per scale ACHS Goal Range: Low 80 mg/dL - High 140 mg/dL Correction Factor: 20 mg/dL/unit * Prandial insulin: Per carb ratio of 1 unit per 6 grams CHO consumed - Outpatient Anti-Diabetic Meds Lantus 20 units HS metformin [facility] Invokana - Assessment & Plan ASSESSMENT: * See progress note from 12/14/2019 for more background info, in short: * Pt receiving SQ basal bolus insulin regimen for hyperglycemia secondary to baseline DM (outpatient regimen on hold) and bacteremia (currently on IV Ancef) * Patient is currently receiving an average of 37 units of insulin per day * 14 units of basal insulin * 23 units of prandial/correctional insulin * BSGs ranging 87 - 142 mg/dl over the past 24hrs * Changes needed to insulin regimen: * AM Fasting BSG = 87 mg/dl. This is in goal range for patient based on inpatient targets and co-morbidities. Fastings are still a touch lower than desired although stable. Will decrease basal by about 15% to 12 units nightly. * Post-prandial BSGs are in range therefore no changes needed to CF/CR. * Total daily dose = ~35 units. Regimen is bolus heavy but fastings are within range. PLAN FOR INPATIENT GLYCEMIC CONTROL: * Decreasing Lantus to 12 units SQ HS * Continuing correction factor of 20 mg/dl/unit * Continuing carb ratio of 1 unit per 6 grams CHO consumed * Continuing goal range of Low 110 mg/dL - High 140 mg/dL RECOMMENDATIONS FOR DISCHARGE: * see note from 12/13/2019 Thank you.
[2019-12-14] MEDS ORDERED: metOLazone 5 MG TABLET PO ONE (11:30)
--- NOTE | 2019-12-14 13:06 | Cardiology Progress Note ---
Date of Service December 14, 2019 Assessment & Plan (1) Acute on chronic heart failure with reduced ejection fraction and diastolic dysfunction: (2) Atrial fibrillation: (3) NICM (nonischemic cardiomyopathy): (4) Renal insufficiency: (5) Presence of biventricular implantable cardioverter-defibrillator (ICD): Continue Lasix 60 mg twice daily. Patient will likely require another 48 to 72 hours of IV diuretic therapy to improve volume status prior to consideration for discharge to rehab. Follow fluid balance, daily weight (bedside standing scale), electrolytes, and GFR. <2gm daily sodium restriction recommended. Continue metoprolol to 50 mg every 6hrs. INR 2.4 today. Continue coumadin, 2 mg daily. Patient is not a candidate for ALEXANDR inhibitor, ARB, Entresto, or Aldactone due to renal insufficiency. Treated with Entresto prior to admission. Subjective Patient seen and examined the bedside. Fluid balance -2.6 L overnight. Weight is down 5 kg over the past 48 hours. Creatinine remains stable at 2.2. Upper extremity edema has nearly resolved. Lower extremity edema mildly improving. Patient denies chest pain or shortness of breath. Heart rate controlled on telemetry. INR therapeutic. Patient tolerating medications and diet. Offers no concerns/complaints this time. Review of Systems Review of Systems: All systems reviewed & are unremarkable except as noted in HPI & below Physical Exam Constitutional: well developed, + ill appearing and + obese Respiratory: no respiratory distress, no labored breathing and no retractions Auscultation: + rales (Bilateral bases); no crackles, no rhonchi and no wheezes Cardiovascular: Rate/Rhythm: + irregularly irregular Heart Sounds: normal S1 and normal S2; no murmur Vessels: + JVD; no carotid bruit Extremities: + edema (2+ bilateral pretibial edema, trace to mild b/L upper extremity edema involving the dorsum of his hands) Gastrointestinal (Abdomen): Inspection/Auscultation: abdomen normal to inspection and normal bowel sounds; abdomen not distended Percussion/Palpation: abdomen soft; abdomen nontender, no guarding and abdomen not rigid Skin: no rashes, warm and dry Neurologic: moves all extremities; no focal motor deficits Psychiatric: A+Ox3, euthymic affect Results & Data Vital Signs (Past 12 Hours) Vital Signs Temp Pulse Pulse Resp BP BP Pulse Ox 12/14/19 12:13 36.5 C 73 17 148/78 H 96 12/14/19 08:21 36.8 C 71 18 166/72 H 92 12/14/19 04:23 36.4 C L 75 18 152/79 H 94 (1) Atrial fibrillation Atrial fibrillation type: paroxysmal Qualified Code(s): I48.0 - Paroxysmal atrial fibrillation
[2019-12-14] MEDS: WARFARIN SOD 2 MG TAB PO SCH (16:52)
[2019-12-14] MEDS: INSULIN GLARGINE SOLOSTAR 100 UNITS/ML 3 ML PEN SC SCH (20:44)
[2019-12-14] MEDS: TAMSULOSIN HCL 0.4 MG CAP PO SCH (20:44)
[2019-12-14] MEDS: SENNA 8.6 MG TAB PO SCH (20:45)
[2019-12-15] MEDS: METOPROLOL TARTRATE 50 MG TAB PO SCH ×3 (01:39→08:35)
[2019-12-15] MEDS: CEFAZOLIN 2000MG 2,000 MG/15 ML SYR IV SCH ×3 (05:35→22:39)
[2019-12-15 06:55] LABS: INR 2.1 (0.9-1.1)
[2019-12-15 07:25] LABS: BUN Creatinine Ratio 16.4 (10-20); Calcium 8.3 mg/dl (8.5-10.1); Creatinine Clr Calc Pharmacy 51.2 ml/min; Est GFR (African American) 37.4; Est GFR (Non-African American) 32.2; Potassium 3.4 mmol/L (3.5-5.1)
[2019-12-15] MEDS: FUROSEMIDE 60 MG in SYRINGE 0 ML IV SCH (08:34)
[2019-12-15] MEDS: ATORVASTATIN 40 MG TAB PO SCH (08:35)
[2019-12-15] MEDS: MAGNESIUM OXIDE 400 MG TAB PO SCH ×2 (08:35→21:01)
[2019-12-15] MEDS: SUCRALFATE 1 GM/10 ML UDC PO SCH ×4 (08:40→21:01)
[2019-12-15] MEDS: DOCUSATE SODIUM 100 MG CAP PO SCH ×2 (08:40→21:01)
[2019-12-15] MEDS: INSULIN ASPART 100 UNITS/ML 3 ML PEN SC SCH ×4 (08:40→21:02)
[2019-12-15] MEDS: PANTOprazole 40 MG TAB PO SCH ×2 (08:42→20:59)
[2019-12-15] MEDS: MULTIVITAMIN TAB PO SCH (08:42)
[2019-12-15] MEDS ORDERED: POTASSIUM CHLORIDE 20 MEQ TABCR PO STA (09:25)
[2019-12-15] MEDS ORDERED: metOLazone 5 MG TABLET PO ONE (09:25)
--- NOTE | 2019-12-15 11:12 | Pharmacy Report ---
Pharmacy Glycemic Short Note 2 - Date of Service December 15, 2019 - Glycemic Short BSG Results (Last 24 hours): 12/14/19 12/14/19 12/14/19 11:44 16:05 20:06 Glucose POC Glucose 118 H 162 H 173 H 12/15/19 12/15/19 06:19 07:11 Glucose 113 H POC Glucose 130 H Outpatient Anti-diabetic Regimen: * Lantus 20 units SC HS * Metformin * Dulaglutide * Canagliflozin * A1c = 7.8 % on 11/27/19 ASSESSMENT: * BSGs have been well-controlled past 48+ hours with 37 units of insulin per day * 12 units of basal insulin with Lantus * 25 units of bolus insulin with Novolog * BSGs 87-173 mg/dl * No changes are required to insulin regimen at this time. * Tight glycemic control warranted for wound healing. PLAN FOR INPATIENT GLYCEMIC CONTROL: * Continue to hold outpatient oral diabetes medications * Basal insulin - * Lantus 12 units qPM * Bolus insulin - * Novolog ACHS * Goal range: 80-140 mg/dL * Correction factor: 20 mg/dL/unit * Carb ratio: 1 unit for every 6 g CHO DISCHARGE PLANNING: * Consider discontinuing canagliflozin (Invokana) on discharge, as this medication carries a Black Box Warning in patients with amputation. * Patient's A1c (7.8%) indicates suboptimal glycemic control. Would prefer to optimize A1c, especially to promote wound healing and discourage infection. * Consider adjusting patient's insulin dose on discharge, and/or maximizing his other oral agents, as renal function allows.
--- NOTE | 2019-12-15 11:20 | Hospitalist Progress Note ---
Date of Service December 15, 2019 Assessment & Plan (1) Septic shock: septic shock secondary to MSSA (Methicillin-sensitive Staphylococcus aureus) bacteremia due to Left foot toe nonhealing wound from Diabetes Mellitus type 2 with osteomyelitis of the toe status post amputation of 2nd Toe on left foot on 12/07/2019 -Patient is a 59-year-old male with history of nonischemic cardiomyopathy, status post AICD pacemaker placement, diabetes type 2, hypertension, presented with nausea vomiting abdominal pain and required ICU admission for for septic shock -on this stay, patient was transitioned from Dapto and Zosyn to cefazolin IV by day 2 for MSSA bacteremia, continue the IV cefazolin 2g q8 hrs -as patient has improved, hospitalist have re-consulted orthopedics as of 12/05/2019 to consider performing toe amputation on this hospital stay for definitive treatment of osteomyelitis with concurrent IV antibiotics. status post amputation of 2nd Toe on left foot on 12/07/2019 -12/08/2019: continue IV antibiotics of cefazolin 2000 mg q8 hours and wound care of amputated area -Non Weight Bearing of left lower extremity as per orthopedics, will need further PT/OT evaluations but patient may benefit to go to physical rehabilitation center after hospital stay, give intermittent IV Lasix to help with lower extremity edema to help with ambulation (Lasix 20 mg IV ordered on 12/09/2019, and 40 mg IV for 12/10/2019) now transitioned to 60 mg of Lasix twice daily (2) Splenic infarct: -as noted on admission CT scan -Likely secondary to above versus embolic secondary to underlying Atrial fibrillation -patient has been systemically anticoagulated during this hospital stay in general (3) Duodenitis: Esophagitis -as noted on admission CT scan -s/p EGD with esophagitis as well as duodenitis -continue p.o. Protonix and carafate -patient was on Diflucan, and is stopped on 12/04/2019 because it affected the INR while patient on wafrain with IV heparin bridge (4) Nausea and vomiting: -resolved (5) TITA (acute kidney injury): -present on admission -creatinine has improved and the IV fluids with bicarbonate is stopped on 12/05/2019 -Baseline creatinine about 1.2, during this admission peaked up to 5, now stable at 2 -Nephrology following (6) HTN (hypertension): -septic shock resolved, on Metoprolol (7) NICM (nonischemic cardiomyopathy): (8) CHF (congestive heart failure): Atrial Fibrillation Presence of ICD -Chronic Systolic Congestive heart failure and s/p ICD placement in July 2019 Acute on chronic heart failure with reduced ejection fraction and diastolic dysfunction -Pacemaker interrogation on this admission with appropriate pacemaker function as per Dr. Reed -on metoprolol -given IV Lasix 20 mg IV on 12/05/2019 because of volume overload from treating acute kidney injury with IV fluids on this admission, stop the IV fluids on 12/05/2019 -12/05/2019 to 12/06/2019 update: THE DIFLUCAN HAS INCREASED THE INR WHILE PATIENT WAS ON IV HEPARIN BRIDGE WITH COUMADIN with INR rising rapidly on 12/05/2019 - systemic anticoagulation was temporarily held then INR reversed for toe amputation surgery, -resumed coumadin as 5 mg daily starting on 12/08/2019, cardiology started heparin IV on 12/09/2019, but INR is 2.5 on 12/10/2019 so IV heparin stopped. warfarin to be redosed as 4 mg daily for now -has been metoprolol oral 50 mg TID, give additional IV metoprolol 5 mg x 1 in AM of 12/21/2019 because of tachycardia and monitor -12/11/2019: cardiology recommends Lasix as 60 mg IV BID and maintain creatinine to around 2, with metoprolol 50 mg q6 hours ; therapeutic INR on coumadin. Goal INR 2-3 -Metolazone added to help with diuresis -<2gm daily sodium restriction recommended Patient is not a candidate for ALEXANDR inhibitor, ARB, Entresto, or Aldactone due to renal insufficiency. Treated with Entresto prior to admission. 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 Admission and Anticipated Discharge Date Admission Date: November 26, 2019 Subjective Patient sitting up in the chair, in no acute distress, eating. Upper extremity edema significantly improved, some improvement in lower extremity edema as well. Patient denies any fevers, chills, chest pain, shortness of breath, abdominal pain, nausea or vomiting. No acute events overnight. Patient feels comfortable. Per cardiology, switch metoprolol tartrate to metoprolol succinate for CHF. Adding hydralazine and nitrates for afterload reduction. Review of Systems Review of Systems: All systems reviewed & are unremarkable except as noted in HPI & below All systems reviewed and are unremarkable except as noted below Constitutional: no fever and no chills Respiratory: no cough and no dyspnea Cardiovascular: + edema (Improved in upper extremities); no chest pain and no palpitations Gastrointestinal: no abdominal pain, no nausea and no vomiting Physical Exam Physical Exam: Constitutional: Elderly male sitting up in a chair, in no acute distress,comfortable Eyes: PERRL, conjunctivae normal, anicteric sclerae EOM intact bilaterally ENMT: external ear and nose normal, oropharynx normal Neck: normal visual inspection Respiratory: normal respiratory effort, CTAB no wheezing, rhonchi, or crackles noted Cardiovascular: Rate/Rhythm: RRR, no murmur, 1+ bilateral pretibial edema and trace upper extremity edema (much improved) Gastrointestinal (Abdomen): normal bowel sounds, soft, nontender to palpation, mildly distended Musculoskeletal: Head/Neck/Chest: normocephalic and head atraumatic bilateral lower extremity edema. left foot in dressing Neurologic: PERRL, EOMI, accommodation nl, no face palsy, no dysarthria CN's II-XI intact bilaterally, moves extremities spontaneously Psychiatric: A+Ox3, euthymic affect Results & Data Results & Data ([facility]) Vital Signs (Past 12 Hours) Vital Signs Temp Pulse Pulse Resp BP Pulse Ox 12/15/19 07:36 36.8 C 72 68 18 123/73 93 12/15/19 03:26 37.0 C 72 18 129/74 93 12/14/19 23:24 37.1 C 74 18 144/77 H 95 Laboratory Results 12/15/19 12/15/19 12/15/19 Range/Units 07:11 06:19 06:19 PT 21.0 H (9.0-12.0) Seconds INR 2.1 H (0.9-1.1) Sodium 138 (136-145) mmol/L Potassium 3.4 L (3.5-5.1) mmol/L Chloride 102 (98-107) mmol/L Carbon Dioxide 31 (21-32) mmol/L Anion Gap 5.0 (3-11) BUN 36 H (7-18) mg/dl Creatinine 2.19 H (0.6-1.4) mg/dl Est Cr Clr Drug Dosing 51.2 ml/min Est GFR ( Amer) 37.4 Est GFR (Non-Af Amer) 32.2 BUN/Creatinine Ratio 16.4 (10-20) Glucose 113 H (70-99) mg/dl POC Glucose 130 H (70-99) mg/dl Calcium 8.3 L (8.5-10.1) mg/dl 12/14/19 12/14/19 12/14/19 Range/Units 20:06 16:05 11:44 PT (9.0-12.0) Seconds INR (0.9-1.1) Sodium (136-145) mmol/L Potassium (3.5-5.1) mmol/L Chloride (98-107) mmol/L Carbon Dioxide (21-32) mmol/L Anion Gap (3-11) BUN (7-18) mg/dl Creatinine (0.6-1.4) mg/dl Est Cr Clr Drug Dosing ml/min Est GFR ( Amer) Est GFR (Non-Af Amer) BUN/Creatinine Ratio (10-20) Glucose (70-99) mg/dl POC Glucose 173 H 162 H 118 H (70-99) mg/dl Calcium (8.5-10.1) mg/dl (1) Nausea and vomiting Vomiting Intractability: unspecified Vomiting type: unspecified Qualified Code(s): R11.2 - Nausea with vomiting, unspecified
--- NOTE | 2019-12-15 12:06 | Cardiology Progress Note ---
Date of Service December 15, 2019 Assessment & Plan (1) Acute on chronic heart failure with reduced ejection fraction and diastolic dysfunction: (2) Atrial fibrillation: (3) NICM (nonischemic cardiomyopathy): L (4) Renal insufficiency: (5) Presence of biventricular implantable cardioverter-defibrillator (ICD): Continue Lasix 60 mg twice daily. Patient will likely require another 48 to 72 hours of IV diuretic therapy to improve volume status prior to consideration for discharge to rehab. Follow fluid balance, daily weight (bedside standing scale), electrolytes, and GFR. <2gm daily sodium restriction recommended. INR 2.4 today. Continue coumadin, 2 mg daily. Patient is not a candidate for ALEXANDR inhibitor, ARB, Entresto, or Aldactone due to renal insufficiency. Treated with Entresto prior to admission. We will supplement potassium today, begin afterload reduction with low-dose nitrates and hydralazine Transition metoprolol tartrate to metoprolol succinate for for use as CHF guideline directed beta-avinash Subjective Patient seen and examined, chart, medications, telemetry reviewed Gradually improving edema with persistent diuresis. Renal function stable. No chest pains tachycardia palpitations or dizziness. Results & Data Vital Signs (Past 12 Hours) Vital Signs Temp Pulse Pulse Resp BP Pulse Ox 12/15/19 07:36 36.8 C 72 68 18 123/73 93 12/15/19 03:26 37.0 C 72 18 129/74 93 Laboratory Results Laboratory Results - last 24 hr 12/14/19 12/14/19 12/15/19 16:05 20:06 06:19 PT INR Sodium 138 Potassium 3.4 L Chloride 102 Carbon Dioxide 31 Anion Gap 5.0 BUN 36 H Creatinine 2.19 H Est Cr Clr Drug Dosing 51.2 Est GFR ( Amer) 37.4 Est GFR (Non-Af Amer) 32.2 BUN/Creatinine Ratio 16.4 Glucose 113 H POC Glucose 162 H 173 H Calcium 8.3 L 12/15/19 12/15/19 12/15/19 06:19 07:11 11:30 PT 21.0 H INR 2.1 H Sodium Potassium Chloride Carbon Dioxide Anion Gap BUN Creatinine Est Cr Clr Drug Dosing Est GFR ( Amer) Est GFR (Non-Af Amer) BUN/Creatinine Ratio Glucose POC Glucose 130 H 127 H Calcium (1) Atrial fibrillation Atrial fibrillation type: paroxysmal Qualified Code(s): I48.0 - Paroxysmal atrial fibrillation
[2019-12-15] MEDS: ISOSORBIDE DINITRATE 10 MG TAB PO SCH (13:06)
--- NOTE | 2019-12-15 16:31 | Nephrology Progress Note ---
Date of Service December 15, 2019 Assessment & Plan (1) TITA (acute kidney injury): nonoliguric TITA w/ baseline creatinine 1.2 as of July 2019 from multifactorial ATN>> he presented with septic shock and MSSA bacteremia w/ splenic infarcts/septic emboli from diabetic foot ulcer; he was already in renal failure on arrival and then needed 2 IV contrast dye loads for CT scan on admission and L heart cath November 27; Creatinine peaked at 5.4 on 11/28 and now stabilized around 2.2; electrolytes are stable but he is grossly volume overload. He was net -2.6 L. -Hold afternoon dose of lasix as BP has dropped and HR is high -he got metolazone 5 mg once today, target net negative at least 1 L daily -Daily standing weight (2) MSSA bacteremia: Status post daptomycin and Zosyn; 4/4 bottles on 11/25 +; TTE w/o vegetation or new WMA; suspect splenic infarcts are septic emboli -Continue Ancef per primary team. Patient s/p amputation of the second toe on 12/07/2019 Admission and Anticipated Discharge Date Admission Date: November 26, 2019 Subjective He feels better. he was net negative about 1 litre. BP has dropped. nO SOB Review of Systems Review of Systems: All systems reviewed & are unremarkable except as noted in HPI & below Physical Exam Physical Exam: General exam: Appears comfortable, no acute distress HEENT: Pupils are equal and reactive to light Neck: No JVD, neck is supple trachea is midline Respiratory system: Clear breath sounds bilaterally. Gastrointestinal: Abdomen is soft, non distended, non tender, bowel sounds are present CVS: Regular rate and rhythm. No murmurs, rubs or gallops Musculoskeletal: No joint or muscle tenderness Extremities: Non tender, 2+ edema, peripheral pulses are present Neuro: Oriented, no tremors, no focal neurological deficits Skin: No rashes Results & Data ([facility]) Vital Signs (Past 12 Hours) Vital Signs Temp Pulse Pulse Pulse Resp BP Pulse Ox 12/15/19 15:47 101 H 12/15/19 15:35 36.7 C 77 18 108/56 L 93 12/15/19 12:43 36.6 C 72 18 143/78 H 96 12/15/19 07:36 36.8 C 72 68 18 123/73 93 Laboratory Results 12/15/19 06:19
[2019-12-15] MEDS: WARFARIN SOD 2 MG TAB PO SCH (16:55)
[2019-12-15] MEDS: TAMSULOSIN HCL 0.4 MG CAP PO SCH (20:59)
[2019-12-15] MEDS: METOPROLOL SUCC 25MG EXT REL TAB PO SCH (21:00)
[2019-12-15] MEDS: SENNA 8.6 MG TAB PO SCH (21:00)
[2019-12-15] MEDS: HydrALAZINE 10 MG TAB PO SCH (21:00)
[2019-12-15] MEDS: INSULIN GLARGINE SOLOSTAR 100 UNITS/ML 3 ML PEN SC SCH (21:03)
[2019-12-16] MEDS: CEFAZOLIN 2000MG 2,000 MG/15 ML SYR IV SCH ×3 (06:22→22:19)
[2019-12-16 07:42] LABS: BUN Creatinine Ratio 17.3 (10-20); Calcium 7.9 mg/dl (8.5-10.1); Creatinine Clr Calc Pharmacy 54.9 ml/min; Est GFR (African American) 41.7; Potassium 3.4 mmol/L (3.5-5.1)
[2019-12-16] MEDS: MULTIVITAMIN TAB PO SCH (08:30)
[2019-12-16] MEDS: SUCRALFATE 1 GM/10 ML UDC PO SCH ×4 (08:30→20:19)
[2019-12-16] MEDS: PANTOprazole 40 MG TAB PO SCH ×2 (08:30→20:19)
[2019-12-16] MEDS: MAGNESIUM OXIDE 400 MG TAB PO SCH ×2 (08:31→20:18)
[2019-12-16] MEDS: DOCUSATE SODIUM 100 MG CAP PO SCH ×2 (08:31→20:18)
[2019-12-16] MEDS: METOPROLOL SUCC 25MG EXT REL TAB PO SCH (08:31)
[2019-12-16] MEDS: ISOSORBIDE DINITRATE 10 MG TAB PO SCH ×3 (08:31→16:57)
[2019-12-16] MEDS: ATORVASTATIN 40 MG TAB PO SCH (08:32)
[2019-12-16] MEDS: HydrALAZINE 10 MG TAB PO SCH (08:35)
[2019-12-16] MEDS: INSULIN ASPART 100 UNITS/ML 3 ML PEN SC SCH ×4 (08:35→20:25)
[2019-12-16] MEDS ORDERED: POTASSIUM CHLORIDE 20 MEQ TABCR PO STA (09:14)
[2019-12-16] MEDS: FUROSEMIDE 80 MG in SYRINGE 0 ML IV SCH ×2 (09:56→20:21)
--- NOTE | 2019-12-16 10:31 | Hospitalist Progress Note ---
Date of Service December 16, 2019 Assessment & Plan (1) Septic shock: septic shock secondary to MSSA (Methicillin-sensitive Staphylococcus aureus) bacteremia due to Left foot toe nonhealing wound from Diabetes Mellitus type 2 with osteomyelitis of the toe status post amputation of 2nd Toe on left foot on 12/07/2019 -Patient is a 59-year-old male with history of nonischemic cardiomyopathy, status post AICD pacemaker placement, diabetes type 2, hypertension, presented with nausea vomiting abdominal pain and required ICU admission for for septic shock -on this stay, patient was transitioned from Dapto and Zosyn to cefazolin IV by day 2 for MSSA bacteremia, continue the IV cefazolin 2g q8 hrs -as patient has improved, hospitalist have re-consulted orthopedics as of 12/05/2019 to consider performing toe amputation on this hospital stay for definitive treatment of osteomyelitis with concurrent IV antibiotics. status post amputation of 2nd Toe on left foot on 12/07/2019 -12/08/2019: continue IV antibiotics of cefazolin 2000 mg q8 hours and wound care of amputated area -Non Weight Bearing of left lower extremity as per orthopedics, will need further PT/OT evaluations but patient may benefit to go to physical rehabilitation center after hospital stay, give intermittent IV Lasix to help with lower extremity edema to help with ambulation (Lasix 20 mg IV ordered on 12/09/2019, and 40 mg IV for 12/10/2019) now transitioned to 60 mg of Lasix twice daily (2) Splenic infarct: -as noted on admission CT scan -Likely secondary to above versus embolic secondary to underlying Atrial fibrillation -patient has been systemically anticoagulated during this hospital stay in general (3) Duodenitis: Esophagitis -as noted on admission CT scan -s/p EGD with esophagitis as well as duodenitis -continue p.o. Protonix and carafate -patient was on Diflucan, and is stopped on 12/04/2019 because it affected the INR while patient on wafrain with IV heparin bridge (4) Nausea and vomiting: -resolved (5) TITA (acute kidney injury): -present on admission -creatinine has improved and the IV fluids with bicarbonate is stopped on 12/05/2019 -Baseline creatinine about 1.2, during this admission peaked up to 5, now stable at around 2 -Nephrology following (6) HTN (hypertension): -septic shock resolved, on Metoprolol (7) NICM (nonischemic cardiomyopathy): (8) CHF (congestive heart failure): Atrial Fibrillation Presence of ICD -Chronic Systolic Congestive heart failure and s/p ICD placement in July 2019 Acute on chronic heart failure with reduced ejection fraction and diastolic dysfunction -Pacemaker interrogation on this admission with appropriate pacemaker function as per Dr. Reed -on metoprolol -given IV Lasix 20 mg IV on 12/05/2019 because of volume overload from treating acute kidney injury with IV fluids on this admission, stop the IV fluids on 12/05/2019 -12/05/2019 to 12/06/2019 update: THE DIFLUCAN HAS INCREASED THE INR WHILE PATIENT WAS ON IV HEPARIN BRIDGE WITH COUMADIN with INR rising rapidly on 12/05/2019 - systemic anticoagulation was temporarily held then INR reversed for toe amput ation surgery, -resumed coumadin as 5 mg daily starting on 12/08/2019, cardiology started heparin IV on 12/09/2019, but INR is 2.5 on 12/10/2019 so IV heparin stopped. warfarin to be redosed as 4 mg daily for now -has been metoprolol oral 50 mg TID, give additional IV metoprolol 5 mg x 1 in AM of 12/21/2019 because of tachycardia and monitor -12/11/2019: cardiology recommends Lasix as 60 mg IV BID and maintain creatinine to around 2, with metoprolol 50 mg q6 hours ; therapeutic INR on coumadin. Goal INR 2-3 -Metolazone added to help with diuresis -<2gm daily sodium restriction recommended - lasix now increased to 80 mg IV twice daily Patient is not a candidate for ALEXANDR inhibitor, ARB, Entresto, or Aldactone due to renal insufficiency. Treated with Entresto prior to admission. Entresto discontinued due to renal insufficiency. Substituting hydralazine and isosorbide. Transitioned from metoprolol tartrate to metoprolol succinate for for use as CHF guideline directed beta-avinash (12/15/19). Metoprolol succinate , uptitrated to 100 mg p.o. twice daily. (9) DM (diabetes mellitus): Type 2 diabetes mellitus with long-term current use of insulin with complications -complications of diabetic ulcer of 2nd toe on left foot with osteomyelitis has been treated with amputation and IV antibiotics -Hba1c 7.8 % -continue current insulin subcutaneously (10) DVT prophylaxis: -therapeutic INR on coumadin. Admission and Anticipated Discharge Date Admission Date: November 26, 2019 Subjective Patient sitting up in bed, in no acute distress. Denies any fevers, chills, chest pain, shortness of breath, abdominal pain, nausea or vomiting. Upper extremity edema significantly improved. Lower extremity also somewhat improved. Review of Systems Review of Systems: All systems reviewed & are unremarkable except as noted in HPI & below All systems reviewed and are unremarkable except as noted below Constitutional: no fever and no chills Respiratory: no cough and no dyspnea Cardiovascular: + edema (Improved in upper extremities); no chest pain and no palpitations Gastrointestinal: no abdominal pain, no nausea and no vomiting Physical Exam Physical Exam: Constitutional: Elderly male sitting up in a chair, in no acute distress,comfortable Eyes: PERRL, conjunctivae normal, anicteric sclerae EOM intact bilaterally ENMT: external ear and nose normal, oropharynx normal Neck: normal visual inspection Respiratory: normal respiratory effort, CTAB no wheezing, rhonchi, or crackles noted Cardiovascular: Rate/Rhythm: RRR, no murmur, 1+ bilateral pretibial edema and trace upper extremity edema (much improved) Gastrointestinal (Abdomen): normal bowel sounds, soft, nontender to palpation, mildly distended Musculoskeletal: Head/Neck/Chest: normocephalic and head atraumatic bilateral lower extremity edema. left foot in dressing Neurologic: PERRL, EOMI, accommodation nl, no face palsy, no dysarthria CN's II-XI intact bilaterally, moves extremities spontaneously Psychiatric: A+Ox3, euthymic affect Results & Data Results & Data ([facility]) Vital Signs (Past 12 Hours) Vital Signs Temp Pulse Resp BP Pulse Ox 12/16/19 08:01 36.9 C 88 18 160/69 H 92 12/16/19 03:19 36.9 C 75 18 126/62 92 12/15/19 23:34 36.7 C 76 19 161/83 H 93 Laboratory Results 12/16/19 12/16/19 12/15/19 Range/Units 07:33 06:43 20:25 Sodium 139 (136-145) mmol/L Potassium 3.4 L (3.5-5.1) mmol/L Chloride 103 (98-107) mmol/L Carbon Dioxide 30 (21-32) mmol/L Anion Gap 6.0 (3-11) BUN 35 H (7-18) mg/dl Creatinine 2.00 H (0.6-1.4) mg/dl Est Cr Clr Drug Dosing 54.9 ml/min Est GFR ( Amer) 41.7 Est GFR (Non-Af Amer) 36.0 BUN/Creatinine Ratio 17.3 (10-20) Glucose 100 H (70-99) mg/dl POC Glucose 112 H 151 H (70-99) mg/dl Calcium 7.9 L (8.5-10.1) mg/dl 12/15/19 12/15/19 Range/Units 16:16 11:30 Sodium (136-145) mmol/L Potassium (3.5-5.1) mmol/L Chloride (98-107) mmol/L Carbon Dioxide (21-32) mmol/L Anion Gap (3-11) BUN (7-18) mg/dl Creatinine (0.6-1.4) mg/dl Est Cr Clr Drug Dosing ml/min Est GFR ( Amer) Est GFR (Non-Af Amer) BUN/Creatinine Ratio (10-20) Glucose (70-99) mg/dl POC Glucose 147 H 127 H (70-99) mg/dl Calcium (8.5-10.1) mg/dl Medications Administered Current Inpatient Medications Acetaminophen (Tylenol) 325 mg PO Q6H PRN PRN Reason: Pain or Fever Stop: 12/26/19 16:14 Atorvastatin Calcium (Lipitor) 40 mg PO QAM YULI Stop: 01/01/20 08:59 Last Admin: 12/16/19 08:32 Dose: 40 mg Documented by: Bisacodyl (Dulcolax) 10 mg AL DAILY PRN PRN Reason: Constipation Stop: 01/06/20 18:16 Dextrose (Dextrose 50%) 25 - 50 ml IV UD PRN; Protocol PRN Reason: Hypoglycemia Protocol Stop: 12/26/19 16:14 Diphenhydramine HCl (Benadryl Capsule) 25 mg PO Q8H PRN PRN Reason: Itching Stop: 01/06/20 18:16 Docusate Sodium (Colace) 100 mg PO BID YULI Stop: 01/06/20 20:59 Last Admin: 12/16/19 08:31 Dose: 100 mg Documented by: Glucagon (Glucagen) 1 mg SQ UD PRN; Protocol PRN Reason: Hypoglycemia Protocol Stop: 12/26/19 16:14 Glucose (Dex4 Glucose) 4 - 8 tabs PO UD PRN; Protocol PRN Reason: Hypoglycemia Protocol Stop: 12/26/19 16:14 Glucose (Glucose 40%) 15 - 30 gm PO UD PRN; Protocol PRN Reason: Hypoglycemia Protocol Stop: 12/26/19 16:14 Heparin Sodium (Beef Lung) (Heparin Sod 10 Unit/Ml Flush) 5 ml FLUSH PRN PRN PRN Reason: Flush Stop: 12/29/19 12:58 Last Admin: 11/29/19 13:24 Dose: 5 ml Documented by: Hydralazine HCl (Apresoline) 10 mg PO BID YULI Stop: 01/14/20 20:59 Last Admin: 12/16/19 08:35 Dose: 10 mg Documented by: Hydromorphone HCl (Dilaudid) 0.25 mg IV Q6H PRN PRN Reason: Severe Pain Stop: 12/22/19 13:34 Cefazolin Sodium (Ancef 2000mg) 2,000 mg in 15 mls @ 2.5 mls/min IV Q8H YULI; Protocol Stop: 12/28/19 13:59 Last Admin: 12/16/19 06:22 Dose: 2.5 mls/min Documented by: Furosemide 80 mg/ Syringe 8 mls @ 4 mls/min IV BID YULI Stop: 01/15/20 09:14 Last Admin: 12/16/19 09:56 Dose: 4 mls/min Documented by: Insulin Aspart (Novolog Flexpen) 0 units SC ACHS [facility]; Protocol Stop: 01/02/20 16:29 Last Admin: 12/16/19 08:35 Dose: 9 units Documented by: Insulin Glargine (Lantus Solostar Pen) 12 units SC HS [facility]; Protocol Stop: 01/13/20 20:59 Last Admin: 12/15/19 21:03 Dose: 12 units Documented by: Isosorbide Dinitrate (Isordil) 10 mg PO BID@0700,1200 YULI Stop: 01/14/20 12:29 Last Admin: 12/16/19 08:31 Dose: 10 mg Documented by: Magnesium Hydroxide (Milk Of Magnesia) 30 ml PO Q6H PRN PRN Reason: Constipation Stop: 01/06/20 18:16 Magnesium Oxide (Mag-Ox) 400 mg PO BID [facility] Stop: 01/12/20 08:59 Last Admin: 12/16/19 08:31 Dose: 400 mg Documented by: Metoclopramide HCl (Reglan) 10 mg IV Q6H PRN PRN Reason: Nausea And Vomiting Stop: 01/06/20 18:16 Metoprolol Succinate (Toprol Xl) 75 mg PO BID [facility] Stop: 01/14/20 20:59 Last Admin: 12/16/19 08:31 Dose: 75 mg Documented by: Miscellaneous (Carbohydrates For Hypoglycemia) 15 - 30 gm PO UD PRN PRN Reason: Hypoglycemia Protocol Stop: 12/26/19 16:14 Miscellaneous Information (Consult Glycemic Management Pharmacy) 1 ea N/A UD PRN PRN Reason: Consult Stop: 12/28/19 10:07 Miscellaneous Information (Pharmacy Consult) 1 ea N/A UD PRN PRN Reason: Consult Stop: 12/30/19 10:38 Multivitamins (Multivitamin Tab) 1 tab PO QAM [facility] Stop: 01/07/20 08:59 Last Admin: 12/16/19 08:30 Dose: 1 tab Documented by: Naloxone HCl (Narcan) 0.1 mg IV Q5M PRN PRN Reason: Oversedation/Resp Depression Stop: 01/06/20 18:16 Ondansetron HCl (Zofran) 4 mg IV Q6H PRN PRN Reason: Nausea And Vomiting Stop: 01/06/20 18:16 Pantoprazole Sodium (Protonix) 40 mg PO BID [facility] Stop: 01/07/20 20:59 Last Admin: 12/16/19 08:30 Dose: 40 mg Documented by: Sennosides (Senokot) 17.2 mg PO HS [facility] Stop: 01/06/20 20:59 Last Admin: 12/15/19 21:00 Dose: 17.2 mg Documented by: Sucralfate (Carafate) 1 gm PO QID [facility] Stop: 12/27/19 12:59 Last Admin: 12/16/19 08:30 Dose: 1 gm Documented by: Tamsulosin HCl (Flomax) 0.4 mg PO HS [facility] Stop: 01/08/20 20:59 Last Admin: 12/15/19 20:59 Dose: 0.4 mg Documented by: Warfarin Sodium (Coumadin) 2 mg PO DAILY@1600 [facility] Stop: 01/09/20 15:59 Last Admin: 12/15/19 16:55 Dose: 2 mg Documented by: (1) Nausea and vomiting Vomiting Intractability: unspecified Vomiting type: unspecified Qualified Code(s): R11.2 - Nausea with vomiting, unspecified
--- NOTE | 2019-12-16 10:38 | Cardiology Progress Note ---
Date of Service December 16, 2019 Assessment & Plan (1) Acute on chronic heart failure with reduced ejection fraction and diastolic dysfunction: Appreciate nephrology help with diuretics Patient gradually diuresing Metoprolol tartrate switch to metoprolol succinate with upward titration to 100 mg p.o. twice daily Entresto discontinued due to renal insufficiency. Substituting hydralazine and isosorbide, will increase dosing to 3 times daily (2) Atrial fibrillation: (3) NICM (nonischemic cardiomyopathy): L (4) Renal insufficiency: (5) Presence of biventricular implantable cardioverter-defibrillator (ICD): Subjective Patient seen and examined, chart, medications, telemetry reviewed. Continues to manifest diuresis. Tolerating medication changes Renal function stable Physical Exam Constitutional: WD/WN, vitals as above + obese Eyes: PERRL, conjunctivae normal, anicteric sclerae ENMT: external ear and nose normal, oropharynx normal Neck: + thick neck Respiratory: normal respiratory effort, lungs clear to auscultation Cardiovascular: Rate/Rhythm: + irregularly irregular Heart Sounds: normal S1 and normal S2 Extremities: + edema (2+ diffuse) Gastrointestinal (Abdomen): normal bowel sounds, soft, nontender, no hepatosplenomegaly Musculoskeletal: no cyanosis or clubbing, extremities motor strength 5/5 Results & Data Vital Signs (Past 12 Hours) Vital Signs Temp Pulse Resp BP Pulse Ox 12/16/19 08:01 36.9 C 88 18 160/69 H 92 12/16/19 03:19 36.9 C 75 18 126/62 92 12/15/19 23:34 36.7 C 76 19 161/83 H 93 Laboratory Results Laboratory Results - last 24 hr 12/15/19 12/15/19 12/15/19 11:30 16:16 20:25 Sodium Potassium Chloride Carbon Dioxide Anion Gap BUN Creatinine Est Cr Clr Drug Dosing Est GFR ( Amer) Est GFR (Non-Af Amer) BUN/Creatinine Ratio Glucose POC Glucose 127 H 147 H 151 H Calcium 12/16/19 12/16/19 06:43 07:33 Sodium 139 Potassium 3.4 L Chloride 103 Carbon Dioxide 30 Anion Gap 6.0 BUN 35 H Creatinine 2.00 H Est Cr Clr Drug Dosing 54.9 Est GFR ( Amer) 41.7 Est GFR (Non-Af Amer) 36.0 BUN/Creatinine Ratio 17.3 Glucose 100 H POC Glucose 112 H Calcium 7.9 L (1) Atrial fibrillation Atrial fibrillation type: paroxysmal Qualified Code(s): I48.0 - Paroxysmal atrial fibrillation
[2019-12-16] MEDS ORDERED: METOPROLOL SUCC 25MG EXT REL TAB PO ONE (10:47)
--- NOTE | 2019-12-16 16:21 | Nephrology Progress Note ---
Date of Service December 16, 2019 Assessment & Plan (1) TITA (acute kidney injury): nonoliguric TITA w/ baseline creatinine 1.2 as of July 2019 from multifactorial ATN>> he presented with septic shock and MSSA bacteremia w/ splenic infarcts/septic emboli from diabetic foot ulcer; he was already in renal failure on arrival and then needed 2 IV contrast dye loads for CT scan on admission and L heart cath November 27; Creatinine peaked at 5.4 on 11/28 and now stabilized around 2; electrolytes are stable but he is grossly volume overload. He was net -0.4 L. -Resume lasix at 80mg iv bid, target net negative at least 1 L daily. Add metolazone as needed if not net negative -Will give kcl 40meq today -Daily standing weight (2) MSSA bacteremia: Status post daptomycin and Zosyn; 4/4 bottles on 11/25 +; TTE w/o vegetation or new WMA; suspect splenic infarcts are septic emboli -Continue Ancef per primary team. Patient s/p amputation of the second toe on 12/07/2019 Admission and Anticipated Discharge Date Admission Date: November 26, 2019 Subjective Feels better. No SOB. Still leg swelling. cr stable at 2 Review of Systems Review of Systems: All systems reviewed & are unremarkable except as noted in HPI & below Physical Exam Physical Exam: General exam: Appears comfortable, no acute distress HEENT: Pupils are equal and reactive to light Neck: No JVD, neck is supple trachea is midline Respiratory system: Clear breath sounds bilaterally. Gastrointestinal: Abdomen is soft, non distended, non tender, bowel sounds are present CVS: Regular rate and rhythm. No murmurs, rubs or gallops Musculoskeletal: No joint or muscle tenderness Extremities: Non tender, 2+ edema, peripheral pulses are present Neuro: Oriented, no tremors, no focal neurological deficits Skin: No rashes Results & Data ([facility]) Vital Signs (Past 12 Hours) Vital Signs Temp Pulse Pulse Pulse Resp BP Pulse Ox 12/16/19 16:00 73 12/16/19 15:01 36.8 C 71 18 110/66 95 12/16/19 11:42 36.8 C 80 18 115/62 94 12/16/19 08:01 36.9 C 88 18 160/69 H 92 12/16/19 08:00 69 Laboratory Results 12/16/19 06:43
[2019-12-16] MEDS: WARFARIN SOD 2 MG TAB PO SCH (16:58)
[2019-12-16] MEDS: TAMSULOSIN HCL 0.4 MG CAP PO SCH (20:18)
[2019-12-16] MEDS: SENNA 8.6 MG TAB PO SCH (20:19)
[2019-12-16] MEDS: METOPROLOL SUCC 50MG EXT REL TAB PO SCH (20:20)
[2019-12-16] MEDS: INSULIN GLARGINE SOLOSTAR 100 UNITS/ML 3 ML PEN SC SCH (20:20)
[2019-12-17] MEDS: ISOSORBIDE DINITRATE 10 MG TAB PO SCH ×2 (05:50→12:57)
[2019-12-17] MEDS: CEFAZOLIN 2000MG 2,000 MG/15 ML SYR IV SCH ×3 (05:50→20:39)
[2019-12-17 07:26] LABS: Prothrombin Time 19.9 Seconds (9.0-12.0)
[2019-12-17 07:50] LABS: BUN Creatinine Ratio 15.7 (10-20); Creatinine Clr Calc Pharmacy 50.8 ml/min; Est GFR (African American) 37.8; Est GFR (Non-African American) 32.6; Magnesium 1.6 mg/dl (1.8-2.4); Potassium 3.3 mmol/L (3.5-5.1)
[2019-12-17 07:51] LABS: Phosphorus 3.3 mg/dl (2.5-4.9)
[2019-12-17] MEDS: INSULIN ASPART 100 UNITS/ML 3 ML PEN SC SCH ×4 (08:09→20:33)
[2019-12-17] MEDS: FUROSEMIDE 80 MG in SYRINGE 0 ML IV SCH ×2 (08:11→20:30)
[2019-12-17] MEDS: MULTIVITAMIN TAB PO SCH (08:12)
[2019-12-17] MEDS: SUCRALFATE 1 GM/10 ML UDC PO SCH ×4 (08:13→20:31)
[2019-12-17] MEDS: MAGNESIUM OXIDE 400 MG TAB PO SCH ×2 (08:14→20:33)
[2019-12-17] MEDS: DOCUSATE SODIUM 100 MG CAP PO SCH ×2 (08:14→20:32)
[2019-12-17] MEDS: PANTOprazole 40 MG TAB PO SCH ×2 (08:14→20:31)
[2019-12-17] MEDS: METOPROLOL SUCC 50MG EXT REL TAB PO SCH ×2 (08:15→20:32)
[2019-12-17] MEDS ORDERED: POTASSIUM CHLORIDE 20 MEQ TABCR PO STA (08:20)
--- NOTE | 2019-12-17 08:24 | Hospitalist Progress Note ---
Date of Service December 17, 2019 Assessment & Plan (1) Septic shock: septic shock secondary to MSSA (Methicillin-sensitive Staphylococcus aureus) bacteremia due to Left foot toe nonhealing wound from Diabetes Mellitus type 2 with osteomyelitis of the toe status post amputation of 2nd Toe on left foot on 12/07/2019 -Patient is a 59-year-old male with history of nonischemic cardiomyopathy, status post AICD pacemaker placement, diabetes type 2, hypertension, presented with nausea vomiting abdominal pain and required ICU admission for for septic shock -on this stay, patient was transitioned from Dapto and Zosyn to cefazolin IV by day 2 for MSSA bacteremia, continue the IV cefazolin 2g q8 hrs -as patient has improved, hospitalist have re-consulted orthopedics as of 12/05/2019 to consider performing toe amputation on this hospital stay for definitive treatment of osteomyelitis with concurrent IV antibiotics. status post amputation of 2nd Toe on left foot on 12/07/2019 -12/08/2019: continue IV antibiotics of cefazolin 2000 mg q8 hours and wound care of amputated area -Non Weight Bearing of left lower extremity as per orthopedics, will need further PT/OT evaluations but patient may benefit to go to physical rehabilitation center after hospital stay -Dressings from left foot removed, surgical site is dry and clean -Plan for [facility] after discharge (2) Splenic infarct: -as noted on admission CT scan -Likely secondary to above versus embolic secondary to underlying Atrial fibrillation -patient has been systemically anticoagulated during this hospital stay in general (3) Duodenitis: Esophagitis -as noted on admission CT scan -s/p EGD with esophagitis as well as duodenitis -continue p.o. Protonix and carafate -patient was on Diflucan, and is stopped on 12/04/2019 because it affected the INR while patient on wafrain with IV heparin bridge (4) Nausea and vomiting: -resolved (5) ITTA (acute kidney injury): -present on admission -creatinine has improved and the IV fluids with bicarbonate is stopped on 12/05/2019 -Baseline creatinine about 1.2, during this admission peaked up to 5, now stable at around 2 -Nephrology following Hypokalemia, hypomagnesemia -Secondary to active diuresis -Replete and monitor (6) HTN (hypertension): -septic shock resolved, on Metoprolol (7) NICM (nonischemic cardiomyopathy): (8) CHF (congestive heart failure): Atrial Fibrillation Presence of ICD -Chronic Systolic Congestive heart failure and s/p ICD placement in July 2019 Acute on chronic heart failure with reduced ejection fraction and diastolic dysfunction -Pacemaker interrogation on this admission with appropriate pacemaker function as per Dr. Reed -on metoprolol -given IV Lasix 20 mg IV on 12/05/2019 because of volume overload from treating acute kidney injury with IV fluids on this admission, stop the IV fluids on 12/05/2019 -12/05/2019 to 12/06/2019 update: THE DIFLUCAN HAS INCREASED THE INR WHILE PATIENT WAS ON IV HEPARIN BRIDGE WITH COUMADIN with INR rising rapidly on 12/05/2019 - systemic anticoagulation was temporarily held then INR reversed for toe amputation surgery, -resumed coumadin as 5 mg daily starting on 12/08/2019, cardiology started heparin IV on 12/09/2019, but INR is 2.5 on 12/10/2019 so IV heparin stopped. warfarin to be redosed as 4 mg daily for now - was on metoprolol tartrate oral 50 mg TID, now switched to succinate, 100 mg p.o. twice daily -Continue diuresis, with Lasix 80 mg IV BID and maintain creatinine to around 2, nephrology also following; therapeutic INR on coumadin. Goal INR 2-3 -Metolazone added to help with diuresis -<2gm daily sodium restriction recommended Treated with Entresto prior to admission. Entresto discontinued due to renal insufficiency. Substituting hydralazine and isosorbide. Transitioned from metoprolol tartrate to metoprolol succinate for for use as CHF guideline directed beta-avinash (12/15/19). Metoprolol succinate uptitrated to 100 mg p.o. twice daily. Increase Isordil to 20 mg 3 times daily continue hydralazine and metoprolol succinate. (9) DM (diabetes mellitus): Type 2 diabetes mellitus with lobsterman current use of insulin with complications -complications of diabetic ulcer of 2nd toe on left foot with osteomyelitis has been treated with amputation and IV antibiotics -Hba1c 7.8 % -continue current insulin subcutaneously (10) DVT prophylaxis: -therapeutic INR on coumadin. Admission and Anticipated Discharge Date Admission Date: November 26, 2019 Subjective Upper extremity edema seems to be completely resolved. Lower extremity edema improved. Patient is sitting up in a chair, in no acute distress. Denies any fevers, chills, chest pain, shortness of breath, abdominal pain, nausea or vomiting. Tried to contact patient's sister Miryam, to update her, but I was only able to leave a message. Review of Systems Review of Systems: All systems reviewed & are unremarkable except as noted in HPI & below All systems reviewed and are unremarkable except as noted below Constitutional: no fever and no chills Respiratory: no cough and no dyspnea Cardiovascular: + edema (In upper extremities seems to be resolved, improved in lower extremities); no chest pain and no palpitations Gastrointestinal: no abdominal pain, no nausea and no vomiting Physical Exam Physical Exam: Constitutional: Elderly male sitting up in a chair, in no acute distress,comfortable Eyes: PERRL, conjunctivae normal, anicteric sclerae EOM intact bilaterally ENMT: external ear and nose normal, oropharynx normal Neck: normal visual inspection Respiratory: normal respiratory effort, CTAB no wheezing, rhonchi, or crackles noted Cardiovascular: Rate/Rhythm: RRR, no murmur, 1+ bilateral pretibial edema and only trace upper extremity edema (much improved/ resolved) Gastrointestinal (Abdomen): normal bowel sounds, soft, nontender to palpation, mildly distended Musculoskeletal: Head/Neck/Chest: normocephalic and head atraumatic bilateral lower extremity edema. left foot's dressing removed, surgical site is clean and dry Neurologic: PERRL, EOMI, accommodation nl, no face palsy, no dysarthria CN's II-XI intact bilaterally, moves extremities spontaneously Psychiatric: A+Ox3, euthymic affect Results & Data Results & Data ([facility]) Vital Signs (Past 12 Hours) Vital Signs Temp Pulse Pulse Resp BP Pulse Ox 12/17/19 08:00 36.7 C 72 18 147/75 H 94 12/17/19 04:00 36.8 C 75 19 120/65 92 12/17/19 00:00 73 12/16/19 23:00 36.8 C 72 17 122/65 Laboratory Results 12/17/19 12/17/19 12/17/19 Range/Units 07:06 07:00 07:00 PT 19.9 H (9.0-12.0) Seconds INR 2.0 H (0.9-1.1) Sodium 139 (136-145) mmol/L Potassium 3.3 L (3.5-5.1) mmol/L Chloride 103 (98-107) mmol/L Carbon Dioxide 33 H (21-32) mmol/L Anion Gap 3.0 (3-11) BUN 34 H (7-18) mg/dl Creatinine 2.17 H (0.6-1.4) mg/dl Est Cr Clr Drug Dosing 50.8 ml/min Est GFR ( Amer) 37.8 Est GFR (Non-Af Amer) 32.6 BUN/Creatinine Ratio 15.7 (10-20) Glucose 102 H (70-99) mg/dl POC Glucose 117 H (70-99) mg/dl Calcium 8.0 L (8.5-10.1) mg/dl Phosphorus 3.3 (2.5-4.9) mg/dl Magnesium 1.6 L (1.8-2.4) mg/dl 12/16/19 12/16/19 12/16/19 Range/Units 20:24 16:16 11:38 PT (9.0-12.0) Seconds INR (0.9-1.1) Sodium (136-145) mmol/L Potassium (3.5-5.1) mmol/L Chloride (98-107) mmol/L Carbon Dioxide (21-32) mmol/L Anion Gap (3-11) BUN (7-18) mg/dl Creatinine (0.6-1.4) mg/dl Est Cr Clr Drug Dosing ml/min Est GFR ( Amer) Est GFR (Non-Af Amer) BUN/Creatinine Ratio (10-20) Glucose (70-99) mg/dl POC Glucose 153 H 164 H 153 H (70-99) mg/dl Calcium (8.5-10.1) mg/dl Phosphorus (2.5-4.9) mg/dl Magnesium (1.8-2.4) mg/dl Medications Administered Current Inpatient Medications Acetaminophen (Tylenol) 325 mg PO Q6H PRN PRN Reason: Pain or Fever Stop: 12/26/19 16:14 Atorvastatin Calcium (Lipitor) 40 mg PO [facility] Stop: 01/01/20 08:59 Last Admin: 12/16/19 08:32 Dose: 40 mg Documented by: Bisacodyl (Dulcolax) 10 mg [place] DAILY PRN PRN Reason: Constipation Stop: 01/06/20 18:16 Dextrose (Dextrose 50%) 25 - 50 ml IV UD PRN; Protocol PRN Reason: Hypoglycemia Protocol Stop: 12/26/19 16:14 Diphenhydramine HCl (Benadryl Capsule) 25 mg PO Q8H PRN PRN Reason: Itching Stop: 01/06/20 18:16 Docusate Sodium (Colace) 100 mg PO BID YULI Stop: 01/06/20 20:59 Last Admin: 12/17/19 08:14 Dose: 100 mg Documented by: Glucagon (Glucagen) 1 mg SQ UD PRN; Protocol PRN Reason: Hypoglycemia Protocol Stop: 12/26/19 16:14 Glucose (Dex4 Glucose) 4 - 8 tabs PO UD PRN; Protocol PRN Reason: Hypoglycemia Protocol Stop: 12/26/19 16:14 Glucose (Glucose 40%) 15 - 30 gm PO UD PRN; Protocol PRN Reason: Hypoglycemia Protocol Stop: 12/26/19 16:14 Heparin Sodium (Beef Lung) (Heparin Sod 10 Unit/Ml Flush) 5 ml FLUSH PRN PRN PRN Reason: Flush Stop: 12/29/19 12:58 Last Admin: 11/29/19 13:24 Dose: 5 ml Documented by: Hydralazine HCl (Apresoline) 12.5 mg PO TID YULI Stop: 01/15/20 13:59 Last Admin: 12/17/19 08:12 Dose: 12.5 mg Documented by: Hydromorphone HCl (Dilaudid) 0.25 mg IV Q6H PRN PRN Reason: Severe Pain Stop: 12/22/19 13:34 Cefazolin Sodium (Ancef 2000mg) 2,000 mg in 15 mls @ 2.5 mls/min IV Q8H YULI; Protocol Stop: 12/28/19 13:59 Last Admin: 12/17/19 05:50 Dose: 2.5 mls/min Documented by: Furosemide 80 mg/ Syringe 8 mls @ 4 mls/min IV BID YULI Stop: 01/15/20 09:14 Last Admin: 12/17/19 08:11 Dose: 4 mls/min Documented by: Magnesium Sulfate/Dextrose (Magnesium Sulfate / D5w) 1 gm in 100 mls @ 50 mls/hr IV ONE ONE Stop: 12/17/19 10:29 Insulin Aspart (Novolog Flexpen) 0 units SC ACHS [facility]; Protocol Stop: 01/02/20 16:29 Last Admin: 12/17/19 08:09 Dose: 5 units Documented by: Insulin Glargine (Lantus Solostar Pen) 12 units SC HS [facility]; Protocol Stop: 01/13/20 20:59 Last Admin: 12/16/19 20:20 Dose: 12 units Documented by: Isosorbide Dinitrate (Isordil) 10 mg PO TID@0700,1200,1700 [facility] Stop: 01/15/20 11:59 Last Admin: 12/17/19 05:50 Dose: 10 mg Documented by: Magnesium Hydroxide (Milk Of Magnesia) 30 ml PO Q6H PRN PRN Reason: Constipation Stop: 01/06/20 18:16 Magnesium Oxide (Mag-Ox) 400 mg PO BID [facility] Stop: 01/12/20 08:59 Last Admin: 12/17/19 08:14 Dose: 400 mg Documented by: Metoclopramide HCl (Reglan) 10 mg IV Q6H PRN PRN Reason: Nausea And Vomiting Stop: 01/06/20 18:16 Metoprolol Succinate (Toprol Xl) 100 mg PO BID [facility] Stop: 01/15/20 20:59 Last Admin: 12/17/19 08:15 Dose: 100 mg Documented by: Miscellaneous (Carbohydrates For Hypoglycemia) 15 - 30 gm PO UD PRN PRN Reason: Hypoglycemia Protocol Stop: 12/26/19 16:14 Miscellaneous Information (Consult Glycemic Management Pharmacy) 1 ea N/A UD PRN PRN Reason: Consult Stop: 12/28/19 10:07 Miscellaneous Information (Pharmacy Consult) 1 ea N/A UD PRN PRN Reason: Consult Stop: 12/30/19 10:38 Multivitamins (Multivitamin Tab) 1 tab PO QAM [facility] Stop: 01/07/20 08:59 Last Admin: 12/17/19 08:12 Dose: 1 tab Documented by: Naloxone HCl (Narcan) 0.1 mg IV Q5M PRN PRN Reason: Oversedation/Resp Depression Stop: 01/06/20 18:16 Ondansetron HCl (Zofran) 4 mg IV Q6H PRN PRN Reason: Nausea And Vomiting Stop: 01/06/20 18:16 Pantoprazole Sodium (Protonix) 40 mg PO BID [facility] Stop: 01/07/20 20:59 Last Admin: 12/17/19 08:14 Dose: 40 mg Documented by: Potassium Chloride (Klor-Con M20) 40 meq PO ONE ONE Stop: 12/17/19 13:01 Sennosides (Senokot) 17.2 mg PO [facility] Stop: 01/06/20 20:59 Last Admin: 12/16/19 20:19 Dose: 17.2 mg Documented by: Sucralfate (Carafate) 1 gm PO QID [facility] Stop: 12/27/19 12:59 Last Admin: 12/17/19 08:13 Dose: 1 gm Documented by: Tamsulosin HCl (Flomax) 0.4 mg PO [facility] Stop: 01/08/20 20:59 Last Admin: 12/16/19 20:18 Dose: 0.4 mg Documented by: Warfarin Sodium (Coumadin) 2 mg PO DAILY@1600 [facility] Stop: 01/09/20 15:59 Last Admin: 12/16/19 16:58 Dose: 2 mg Documented by: (1) Nausea and vomiting Vomiting Intractability: unspecified Vomiting type: unspecified Qualified Code(s): R11.2 - Nausea with vomiting, unspecified
[2019-12-17] MEDS: ATORVASTATIN 40 MG TAB PO SCH (08:28)
[2019-12-17] MEDS ORDERED: MAGNESIUM SULFATE / D5W 1 GM/100 ML BAG IV ONE (08:30)
--- NOTE | 2019-12-17 10:01 | Pharmacy Report ---
Pharmacy Glycemic Short Note 2 - Date of Service December 17, 2019 - Glycemic Short BSG Results (Last 24 hours): Outpatient Anti-diabetic Regimen: * Lantus 20 units SC HS * Metformin * Dulaglutide * Canagliflozin * A1c = 7.8 % on 11/27/19 ASSESSMENT: * BSGs have been well-controlled past 96 hours with average of 36 units of insulin per day. Yesterday, patient received: * 12 units of basal insulin with Lantus * 29 units of bolus insulin with Novolog * BSGs 112-164 mg/dl * No changes are required to insulin regimen at this time. * Tight glycemic control warranted for wound healing. PLAN FOR INPATIENT GLYCEMIC CONTROL: * Continue to hold outpatient oral diabetes medications * Basal insulin * Lantus 12 units qPM * Bolus insulin * Novolog ACHS * Goal range: 80-140 mg/dL * Correction factor: 20 mg/dL/unit * Carb ratio: 1 unit for every 6 g CHO DISCHARGE PLANNING: * Consider discontinuing canagliflozin (Invokana) on discharge, as this medication carries a Black Box Warning in patients with amputation. * Patient's A1c (7.8%) indicates suboptimal glycemic control. Would prefer to optimize A1c, especially to promote wound healing and discourage infection. * Consider adjusting patient's insulin dose on discharge, and/or maximizing his other oral agents, as renal function allows.
[2019-12-17] MEDS ORDERED: POTASSIUM CHLORIDE 20 MEQ TABCR PO ONE ×2 (13:00→20:00)
--- NOTE | 2019-12-17 15:07 | Cardiology Progress Note ---
Date of Service December 17, 2019 Assessment & Plan (1) Acute on chronic heart failure with reduced ejection fraction and diastolic dysfunction: Appreciate nephrology help with diuretics Patient substantial increase in diuresis overnight Tolerating current medication adjustments on appropriate guideline directed CHF regimen Good urine output and rising bicarb Plan: Supplement potassium already ordered. Will give additional 20 medical events this evening. Hold IV furosemide after p.m. dose this evening and reassess in a.m. whether to continue IV versus switch to oral regimen Increase Isordil to 20 mg 3 times daily continue hydralazine and metoprolol succinate (2) Atrial fibrillation: (3) NICM (nonischemic cardiomyopathy): (4) Renal insufficiency: (5) Presence of biventricular implantable cardioverter-defibrillator (ICD): I Subjective Patient seen and examined, chart, medications, telemetry reviewed. Patient standing at bedside with PT, feeling improved Significant diuresis overnight, tolerating medication changes Physical Exam Constitutional: WD/WN, vitals as above Eyes: PERRL, conjunctivae normal, anicteric sclerae ENMT: external ear and nose normal, oropharynx normal Neck: trachea midline, no thyromegaly Respiratory: normal respiratory effort, lungs clear to auscultation Cardiovascular: Rate/Rhythm: + irregularly irregular Extremities: + edema (1-2+ improved) Chest (Breasts): Chest: + pacemaker Gastrointestinal (Abdomen): normal bowel sounds, soft, nontender, no hepatosplenomegaly Musculoskeletal: Foot bandaged Results & Data Vital Signs (Past 12 Hours) Vital Signs Temp Pulse Resp BP Pulse Ox 12/17/19 11:50 36.5 C 90 18 136/70 96 12/17/19 08:00 36.7 C 72 18 147/75 H 94 12/17/19 04:00 36.8 C 75 19 120/65 92 Laboratory Results Laboratory Results - last 24 hr 12/16/19 12/16/19 12/17/19 16:16 20:24 07:00 PT INR Sodium 139 Potassium 3.3 L Chloride 103 Carbon Dioxide 33 H Anion Gap 3.0 BUN 34 H Creatinine 2.17 H Est Cr Clr Drug Dosing 50.8 Est GFR ( Amer) 37.8 Est GFR (Non-Af Amer) 32.6 BUN/Creatinine Ratio 15.7 Glucose 102 H POC Glucose 164 H 153 H Calcium 8.0 L Phosphorus 3.3 Magnesium 1.6 L 12/17/19 12/17/19 12/17/19 07:00 07:06 11:05 PT 19.9 H INR 2.0 H Sodium Potassium Chloride Carbon Dioxide Anion Gap BUN Creatinine Est Cr Clr Drug Dosing Est GFR ( Amer) Est GFR (Non-Af Amer) BUN/Creatinine Ratio Glucose POC Glucose 117 H 150 H Calcium Phosphorus Magnesium (1) Atrial fibrillation Atrial fibrillation type: paroxysmal Qualified Code(s): I48.0 - Paroxysmal atrial fibrillation
[2019-12-17] MEDS: ISOSORBIDE DINITRATE 20 MG TAB PO SCH (16:54)
[2019-12-17] MEDS: WARFARIN SOD 2 MG TAB PO SCH (16:55)
[2019-12-17] MEDS: SENNA 8.6 MG TAB PO SCH (20:30)
[2019-12-17] MEDS: TAMSULOSIN HCL 0.4 MG CAP PO SCH (20:32)
[2019-12-17] MEDS: INSULIN GLARGINE SOLOSTAR 100 UNITS/ML 3 ML PEN SC SCH (20:34)
[2019-12-18] MEDS: ISOSORBIDE DINITRATE 20 MG TAB PO SCH ×3 (06:37→17:13)
[2019-12-18] MEDS: CEFAZOLIN 2000MG 2,000 MG/15 ML SYR IV SCH ×3 (06:37→21:25)
[2019-12-18 07:24] LABS: Prothrombin Time 20.8 Seconds (9.0-12.0)
[2019-12-18 07:43] LABS: BUN Creatinine Ratio 16.1 (10-20); Calcium 8.2 mg/dl (8.5-10.1); Creatinine Clr Calc Pharmacy 52.5 ml/min; Est GFR (African American) 39.8; Est GFR (Non-African American) 34.3; Magnesium 1.6 mg/dl (1.8-2.4); Potassium 3.7 mmol/L (3.5-5.1)
[2019-12-18] MEDS: ATORVASTATIN 40 MG TAB PO SCH (08:13)
[2019-12-18] MEDS: MAGNESIUM OXIDE 400 MG TAB PO SCH ×2 (08:13→21:28)
[2019-12-18] MEDS: SUCRALFATE 1 GM/10 ML UDC PO SCH ×4 (08:13→21:26)
[2019-12-18] MEDS: DOCUSATE SODIUM 100 MG CAP PO SCH ×2 (08:13→21:27)
[2019-12-18] MEDS: METOPROLOL SUCC 50MG EXT REL TAB PO SCH ×2 (08:13→21:28)
[2019-12-18] MEDS: MULTIVITAMIN TAB PO SCH (08:13)
[2019-12-18] MEDS: PANTOprazole 40 MG TAB PO SCH ×2 (08:13→21:29)
[2019-12-18] MEDS: INSULIN ASPART 100 UNITS/ML 3 ML PEN SC SCH ×4 (08:14→21:30)
[2019-12-18] MEDS ORDERED: POTASSIUM CHLORIDE 20 MEQ TABCR PO STA (08:26)
--- NOTE | 2019-12-18 08:33 | Hospitalist Progress Note ---
Date of Service December 18, 2019 Assessment & Plan (1) Septic shock: septic shock secondary to MSSA (Methicillin-sensitive Staphylococcus aureus) bacteremia due to Left foot toe nonhealing wound from Diabetes Mellitus type 2 with osteomyelitis of the toe status post amputation of 2nd Toe on left foot on 12/07/2019 -Patient is a 59-year-old male with history of nonischemic cardiomyopathy, status post AICD pacemaker placement, diabetes type 2, hypertension, presented with nausea vomiting abdominal pain and required ICU admission for for septic shock -on this stay, patient was transitioned from Dapto and Zosyn to cefazolin IV by day 2 for MSSA bacteremia, continue the IV cefazolin 2g q8 hrs -as patient has improved, hospitalist have re-consulted orthopedics as of 12/05/2019 to consider performing toe amputation on this hospital stay for definitive treatment of osteomyelitis with concurrent IV antibiotics. status post amputation of 2nd Toe on left foot on 12/07/2019 -12/08/2019: continue IV antibiotics of cefazolin 2000 mg q8 hours and wound care of amputated area -Non Weight Bearing of left lower extremity as per orthopedics, will need further PT/OT evaluations but patient would benefit from physical rehabilitation center after hospital stay -Dressings from left foot removed, surgical site is dry and clean -Plan for [facility] after discharge (2) Splenic infarct: -as noted on admission CT scan -Likely secondary to above versus embolic secondary to underlying Atrial fibrillation -patient has been systemically anticoagulated during this hospital stay in general (3) Duodenitis: Esophagitis -as noted on admission CT scan -s/p EGD with esophagitis as well as duodenitis -continue p.o. Protonix and carafate -patient was on Diflucan, and is stopped on 12/04/2019 because it affected the INR while patient on wafrain with IV heparin bridge (4) Nausea and vomiting: -resolved (5) TITA (acute kidney injury): -present on admission -creatinine has improved and the IV fluids with bicarbonate is stopped on 12/05/2019 -Baseline creatinine about 1.2, during this admission peaked up to 5, now stable at around 2 -Nephrology following Hypokalemia, hypomagnesemia -Secondary to active diuresis -Replete and monitor (6) HTN (hypertension): -septic shock resolved, on Metoprolol (7) NICM (nonischemic cardiomyopathy): (8) CHF (congestive heart failure): Atrial Fibrillation Presence of ICD -Chronic Systolic Congestive heart failure and s/p ICD placement in July 2019 Acute on chronic heart failure with reduced ejection fraction and diastolic dysfunction -Pacemaker interrogation on this admission with appropriate pacemaker function as per Dr. Reed -on metoprolol -given IV Lasix 20 mg IV on 12/05/2019 because of volume overload from treating acute kidney injury with IV fluids on this admission, stop the IV fluids on 12/05/2019 -12/05/2019 to 12/06/2019 update: THE DIFLUCAN HAS INCREASED THE INR WHILE PATIENT WAS ON IV HEPARIN BRIDGE WITH COUMADIN with INR rising rapidly on 12/05/2019 - systemic anticoagulation was temporarily held then INR reversed for toe amputation surgery, -resumed coumadin as 5 mg daily starting on 12/08/2019, cardiology started heparin IV on 12/09/2019, but INR is 2.5 on 12/10/2019 so IV heparin stopped. warfarin to be redosed as 4 mg daily for now - was on metoprolol tartrate oral 50 mg TID, now switched to succinate, 100 mg p.o. twice daily -Continue diuresis, with Lasix 80 mg IV BID and maintain creatinine to around 2, nephrology also following; therapeutic INR on coumadin. Goal INR 2-3 -Metolazone added to help with diuresis -<2gm daily sodium restriction recommended Treated with Entresto prior to admission. Entresto discontinued due to renal insufficiency. Substituting hydralazine and isosorbide. Transitioned from metoprolol tartrate to metoprolol succinate for for use as CHF guideline directed beta-avinash (12/15/19). Metoprolol succinate uptitrated to 100 mg p.o. twice daily. Increased Isordil to 20 mg 3 times daily continue hydralazine and metoprolol succinate. (9) DM (diabetes mellitus): Type 2 diabetes mellitus with halfway current use of insulin with complications -complications of diabetic ulcer of 2nd toe on left foot with osteomyelitis has been treated with amputation and IV antibiotics -Hba1c 7.8 % -continue current insulin subcutaneously (10) DVT prophylaxis: -therapeutic INR on coumadin. Admission and Anticipated Discharge Date Admission Date: November 26, 2019 Subjective Upper extremity edema seems to be completely resolved. Lower extremity edema improved. Patient is sitting up in a chair, in no acute distress. Denies any fevers, chills, chest pain, shortness of breath, abdominal pain, nausea or vomiting. Patient's mother, Capri, stevo. Review of Systems Review of Systems: All systems reviewed & are unremarkable except as noted in HPI & below All systems reviewed and are unremarkable except as noted below Constitutional: no fever and no chills Respiratory: no cough and no dyspnea Cardiovascular: + edema (In upper extremities seems to be resolved, improved in lower extremities); no chest pain and no palpitations Gastrointestinal: no abdominal pain, no nausea and no vomiting Physical Exam Physical Exam: Constitutional: Elderly male sitting up in a chair, in no acute distress,comfortable Eyes: PERRL, conjunctivae normal, anicteric sclerae EOM intact bilaterally ENMT: external ear and nose normal, oropharynx normal Neck: normal visual inspection Respiratory: normal respiratory effort, CTAB no wheezing, rhonchi, or crackles noted Cardiovascular: Rate/Rhythm: RRR, no murmur, 1+ bilateral pretibial edema and only trace upper extremity edema (much improved/ resolved) Gastrointestinal (Abdomen): normal bowel sounds, soft, nontender to palpation, mildly distended Musculoskeletal: Head/Neck/Chest: normocephalic and head atraumatic bilateral lower extremity edema. left foot's dressing removed, surgical site is clean and dry Neurologic: PERRL, EOMI, accommodation nl, no face palsy, no dysarthria CN's II-XI intact bilaterally, moves extremities spontaneously Psychiatric: A+Ox3, euthymic affect Results & Data Results & Data ([facility]) Vital Signs (Past 12 Hours) Vital Signs Temp Pulse Pulse Resp BP Pulse Ox 12/18/19 07:16 37.0 C 75 17 125/72 91 12/18/19 04:00 36.7 C 75 18 115/68 94 12/17/19 23:58 36.8 C 69 19 133/70 93 Laboratory Results 12/18/19 12/18/19 12/17/19 Range/Units 07:01 07:01 20:20 PT 20.8 H (9.0-12.0) Seconds INR 2.0 H (0.9-1.1) Sodium 140 (136-145) mmol/L Potassium 3.7 (3.5-5.1) mmol/L Chloride 103 (98-107) mmol/L Carbon Dioxide 30 (21-32) mmol/L Anion Gap 7.0 (3-11) BUN 33 H (7-18) mg/dl Creatinine 2.08 H (0.6-1.4) mg/dl Est Cr Clr Drug Dosing 52.5 ml/min Est GFR ( Amer) 39.8 Est GFR (Non-Af Amer) 34.3 BUN/Creatinine Ratio 16.1 (10-20) Glucose 107 H (70-99) mg/dl POC Glucose 120 H (70-99) mg/dl Calcium 8.2 L (8.5-10.1) mg/dl Magnesium 1.6 L (1.8-2.4) mg/dl 12/17/19 12/17/19 Range/Units 16:07 11:05 PT (9.0-12.0) Seconds INR (0.9-1.1) Sodium (136-145) mmol/L Potassium (3.5-5.1) mmol/L Chloride (98-107) mmol/L Carbon Dioxide (21-32) mmol/L Anion Gap (3-11) BUN (7-18) mg/dl Creatinine (0.6-1.4) mg/dl Est Cr Clr Drug Dosing ml/min Est GFR ( Amer) Est GFR (Non-Af Amer) BUN/Creatinine Ratio (10-20) Glucose (70-99) mg/dl POC Glucose 187 H 150 H (70-99) mg/dl Calcium (8.5-10.1) mg/dl Magnesium (1.8-2.4) mg/dl Medications Administered Current Inpatient Medications Acetaminophen (Tylenol) 325 mg PO Q6H PRN PRN Reason: Pain or Fever Stop: 12/26/19 16:14 Atorvastatin Calcium (Lipitor) 40 mg PO QAM [facility] Stop: 01/01/20 08:59 Last Admin: 12/18/19 08:13 Dose: 40 mg Documented by: Bisacodyl (Dulcolax) 10 mg FL DAILY PRN PRN Reason: Constipation Stop: 01/06/20 18:16 Dextrose (Dextrose 50%) 25 - 50 ml IV UD PRN; Protocol PRN Reason: Hypoglycemia Protocol Stop: 12/26/19 16:14 Diphenhydramine HCl (Benadryl Capsule) 25 mg PO Q8H PRN PRN Reason: Itching Stop: 01/06/20 18:16 Docusate Sodium (Colace) 100 mg PO BID [facility] Stop: 01/06/20 20:59 Last Admin: 12/18/19 08:13 Dose: 100 mg Documented by: Glucagon (Glucagen) 1 mg SQ UD PRN; Protocol PRN Reason: Hypoglycemia Protocol Stop: 12/26/19 16:14 Glucose (Dex4 Glucose) 4 - 8 tabs PO UD PRN; Protocol PRN Reason: Hypoglycemia Protocol Stop: 12/26/19 16:14 Glucose (Glucose 40%) 15 - 30 gm PO UD PRN; Protocol PRN Reason: Hypoglycemia Protocol Stop: 12/26/19 16:14 Heparin Sodium (Beef Lung) (Heparin Sod 10 Unit/Ml Flush) 5 ml FLUSH PRN PRN PRN Reason: Flush Stop: 12/29/19 12:58 Last Admin: 11/29/19 13:24 Dose: 5 ml Documented by: Hydralazine HCl (Apresoline) 12.5 mg PO TID [facility] Stop: 01/15/20 13:59 Last Admin: 12/18/19 08:13 Dose: 12.5 mg Documented by: Hydromorphone HCl (Dilaudid) 0.25 mg IV Q6H PRN PRN Reason: Severe Pain Stop: 12/22/19 13:34 Cefazolin Sodium (Ancef 2000mg) 2,000 mg in 15 mls @ 2.5 mls/min IV Q8H [facility]; Protocol Stop: 12/28/19 13:59 Last Admin: 12/18/19 06:37 Dose: 2.5 mls/min Documented by: Furosemide 80 mg/ Syringe 8 mls @ 4 mls/min IV BID [facility] Stop: 01/15/20 09:14 Last Admin: 12/17/19 20:30 Dose: 4 mls/min Documented by: Magnesium Sulfate/Dextrose (Magnesium Sulfate / D5w) 1 gm in 100 mls @ 50 mls/hr IV ONE ONE Stop: 12/18/19 10:44 Insulin Aspart (Novolog Flexpen) 0 units SC ACHS [facility]; Protocol Stop: 01/02/20 16:29 Last Admin: 12/18/19 08:14 Dose: 5 units Documented by: Insulin Glargine (Lantus Solostar Pen) 12 units SC HS [facility]; Protocol Stop: 01/13/20 20:59 Last Admin: 12/17/19 20:34 Dose: 12 units Documented by: Isosorbide Dinitrate (Isordil) 20 mg PO TID@0700,1200,1700 [facility] Stop: 01/16/20 16:59 Last Admin: 12/18/19 06:37 Dose: 20 mg Documented by: Magnesium Hydroxide (Milk Of Magnesia) 30 ml PO Q6H PRN PRN Reason: Constipation Stop: 01/06/20 18:16 Magnesium Oxide (Mag-Ox) 400 mg PO BID [facility] Stop: 01/12/20 08:59 Last Admin: 12/18/19 08:13 Dose: 400 mg Documented by: Metoclopramide HCl (Reglan) 10 mg IV Q6H PRN PRN Reason: Nausea And Vomiting Stop: 01/06/20 18:16 Metoprolol Succinate (Toprol Xl) 100 mg PO BID [facility] Stop: 01/15/20 20:59 Last Admin: 12/18/19 08:13 Dose: 100 mg Documented by: Miscellaneous (Carbohydrates For Hypoglycemia) 15 - 30 gm PO UD PRN PRN Reason: Hypoglycemia Protocol Stop: 12/26/19 16:14 Miscellaneous Information (Consult Glycemic Management Pharmacy) 1 ea N/A UD PRN PRN Reason: Consult Stop: 12/28/19 10:07 Miscellaneous Information (Pharmacy Consult) 1 ea N/A UD PRN PRN Reason: Consult Stop: 12/30/19 10:38 Multivitamins (Multivitamin Tab) 1 tab PO QAM [facility] Stop: 01/07/20 08:59 Last Admin: 12/18/19 08:13 Dose: 1 tab Documented by: Naloxone HCl (Narcan) 0.1 mg IV Q5M PRN PRN Reason: Oversedation/Resp Depression Stop: 01/06/20 18:16 Ondansetron HCl (Zofran) 4 mg IV Q6H PRN PRN Reason: Nausea And Vomiting Stop: 01/06/20 18:16 Pantoprazole Sodium (Protonix) 40 mg PO BID [facility] Stop: 01/07/20 20:59 Last Admin: 12/18/19 08:13 Dose: 40 mg Documented by: Sennosides (Senokot) 17.2 mg PO [facility] Stop: 01/06/20 20:59 Last Admin: 12/17/19 20:30 Dose: 17.2 mg Documented by: Sucralfate (Carafate) 1 gm PO QID [facility] Stop: 12/27/19 12:59 Last Admin: 12/18/19 08:13 Dose: 1 gm Documented by: Tamsulosin HCl (Flomax) 0.4 mg PO [facility] Stop: 01/08/20 20:59 Last Admin: 12/17/19 20:32 Dose: 0.4 mg Documented by: Warfarin Sodium (Coumadin) 2 mg PO DAILY@1600 [facility] Stop: 01/09/20 15:59 Last Admin: 12/17/19 16:55 Dose: 2 mg Documented by: (1) Nausea and vomiting Vomiting Intractability: unspecified Vomiting type: unspecified Qualified Code(s): R11.2 - Nausea with vomiting, unspecified
[2019-12-18] MEDS ORDERED: MAGNESIUM SULFATE / D5W 1 GM/100 ML BAG IV ONE (08:45)
--- NOTE | 2019-12-18 09:49 | Cardiology Progress Note ---
Date of Service December 18, 2019 Assessment & Plan (1) Acute on chronic heart failure with reduced ejection fraction and diastolic dysfunction: Appreciate nephrology help with diuretics Patient substantial increase in diuresis overnight Tolerating current medication adjustments on appropriate guideline directed CHF regimen Good urine output and rising bicarb Heart rates and blood pressures improved Plan: Resume IV furosemide 80 mg twice daily for an additional 2 doses then likely switch to oral dosing in a.m. (2) Atrial fibrillation: Rate controlled (3) NICM (nonischemic cardiomyopathy): L (4) Renal insufficiency: (5) Presence of biventricular implantable cardioverter-defibrillator (ICD): I Subjective Patient was seen and examined, chart, medications, telemetry reviewed. Feels improved has manifested significant diuresis in the last 48 hours. Arm edema nearly resolved still some mild persistent lower extremity edema. Renal function remains stable working with physical therapy with ambulation Physical Exam Constitutional: WD/WN, vitals as above + obese Eyes: PERRL, conjunctivae normal, anicteric sclerae ENMT: external ear and nose normal, oropharynx normal Neck: trachea midline, no thyromegaly + thick neck Respiratory: normal respiratory effort, lungs clear to auscultation Cardiovascular: Rate/Rhythm: + irregularly irregular Heart Sounds: normal S1 and normal S2 Extremities: + edema (1-2+ improved) Chest (Breasts): Chest: + pacemaker Gastrointestinal (Abdomen): normal bowel sounds, soft, nontender, no hepatosplenomegaly Musculoskeletal: no cyanosis or clubbing, extremities motor strength 5/5 Results & Data Vital Signs (Past 12 Hours) Vital Signs Temp Pulse Pulse Resp BP Pulse Ox 12/18/19 07:16 37.0 C 75 17 125/72 91 12/18/19 04:00 36.7 C 75 18 115/68 94 12/17/19 23:58 36.8 C 69 19 133/70 93 Laboratory Results Laboratory Results - last 24 hr 12/17/19 12/17/19 12/17/19 11:05 16:07 20:20 PT INR Sodium Potassium Chloride Carbon Dioxide Anion Gap BUN Creatinine Est Cr Clr Drug Dosing Est GFR ( Amer) Est GFR (Non-Af Amer) BUN/Creatinine Ratio Glucose POC Glucose 150 H 187 H 120 H Calcium Magnesium 12/18/19 12/18/19 07:01 07:01 PT 20.8 H INR 2.0 H Sodium 140 Potassium 3.7 Chloride 103 Carbon Dioxide 30 Anion Gap 7.0 BUN 33 H Creatinine 2.08 H Est Cr Clr Drug Dosing 52.5 Est GFR ( Amer) 39.8 Est GFR (Non-Af Amer) 34.3 BUN/Creatinine Ratio 16.1 Glucose 107 H POC Glucose Calcium 8.2 L Magnesium 1.6 L (1) Atrial fibrillation Atrial fibrillation type: paroxysmal Qualified Code(s): I48.0 - Paroxysmal atrial fibrillation
[2019-12-18] MEDS ORDERED: FUROSEMIDE 80 MG in SYRINGE 0 ML IV ONE (10:00)
[2019-12-18] MEDS: WARFARIN SOD 2 MG TAB PO SCH (14:57)
[2019-12-18] MEDS: FUROSEMIDE 80 MG in SYRINGE 0 ML IV SCH (21:26)
[2019-12-18] MEDS: SENNA 8.6 MG TAB PO SCH (21:28)
[2019-12-18] MEDS: TAMSULOSIN HCL 0.4 MG CAP PO SCH (21:28)
[2019-12-18] MEDS: INSULIN GLARGINE SOLOSTAR 100 UNITS/ML 3 ML PEN SC SCH (21:29)
[2019-12-19] MEDS: ISOSORBIDE DINITRATE 20 MG TAB PO SCH ×3 (06:08→17:21)
[2019-12-19] MEDS: CEFAZOLIN 2000MG 2,000 MG/15 ML SYR IV SCH ×3 (06:08→21:23)
[2019-12-19 08:10] LABS: INR 1.9 (0.9-1.1); Prothrombin Time 18.9 Seconds (9.0-12.0)
[2019-12-19] MEDS: INSULIN ASPART 100 UNITS/ML 3 ML PEN SC SCH ×4 (08:31→21:28)
[2019-12-19 08:32] LABS: BUN Creatinine Ratio 14.9 (10-20); Calcium 8.4 mg/dl (8.5-10.1); Creatinine Clr Calc Pharmacy 48.2 ml/min; Est GFR (African American) 36.2; Est GFR (Non-African American) 31.2; Magnesium 1.7 mg/dl (1.8-2.4); Potassium 3.6 mmol/L (3.5-5.1)
[2019-12-19] MEDS: ATORVASTATIN 40 MG TAB PO SCH (08:32)
[2019-12-19] MEDS: DOCUSATE SODIUM 100 MG CAP PO SCH ×2 (08:32→21:24)
[2019-12-19] MEDS: MAGNESIUM OXIDE 400 MG TAB PO SCH ×2 (08:32→21:25)
[2019-12-19] MEDS: PANTOprazole 40 MG TAB PO SCH ×2 (08:32→21:24)
[2019-12-19] MEDS: METOPROLOL SUCC 50MG EXT REL TAB PO SCH ×2 (08:32→21:25)
[2019-12-19] MEDS: MULTIVITAMIN TAB PO SCH (08:32)
[2019-12-19] MEDS: SUCRALFATE 1 GM/10 ML UDC PO SCH (08:33)
--- NOTE | 2019-12-19 09:21 | Hospitalist Progress Note ---
Date of Service December 19, 2019 Assessment & Plan (1) Septic shock: septic shock secondary to MSSA (Methicillin-sensitive Staphylococcus aureus) bacteremia due to Left foot toe nonhealing wound from Diabetes Mellitus type 2 with osteomyelitis of the toe status post amputation of 2nd Toe on left foot on 12/07/2019 -Patient is a 59-year-old male with history of nonischemic cardiomyopathy, status post AICD pacemaker placement, diabetes type 2, hypertension, presented with nausea vomiting abdominal pain and required ICU admission for for septic shock -on this stay, patient was transitioned from Dapto and Zosyn to cefazolin IV by day 2 for MSSA bacteremia, continue the IV cefazolin 2g q8 hrs -as patient has improved, hospitalist have re-consulted orthopedics as of 12/05/2019 to consider performing toe amputation on this hospital stay for definitive treatment of osteomyelitis with concurrent IV antibiotics. status post amputation of 2nd Toe on left foot on 12/07/2019 -12/08/2019: continue IV antibiotics of cefazolin 2000 mg q8 hours and wound care of amputated area -Non Weight Bearing of left lower extremity as per orthopedics, will need further PT/OT evaluations but patient would benefit from physical rehabilitation center after hospital stay -Dressings from left foot removed, surgical site is dry and clean -Plan for [facility] after discharge -12/19/2019: discussed with patient that currently he has been on IV antibiotics for 3 weeks while inpatient, the previous hospitalist Dr. Murillo would like patient to continue IV antibiotics when he goes to physical rehabilitation (i deal treatment for duration of osteomyelitis treatment is total of 4 to 6 weeks of IV antibiotics), patient was given consent form for midline or PICC line (2) Splenic infarct: -as noted on admission CT scan -Likely secondary to above versus embolic secondary to underlying Atrial fibrillation -patient has been systemically anticoagulated during this hospital stay in general (3) Duodenitis: Esophagitis -as noted on admission CT scan -s/p EGD with esophagitis as well as duodenitis -continue p.o. Protonix and carafate -patient was on Diflucan, and is stopped on 12/04/2019 because it affected the INR (4) Nausea and vomiting: -resolved (5) TITA (acute kidney injury): -present on admission -creatinine has improved and the IV fluids with bicarbonate is stopped on 12/05/2019 -Baseline creatinine about 1.2, during this admission peaked up to 5, now stable at around 2 Hypokalemia, hypomagnesemia -Secondary to diuresis -stable serum potassium currently, given additional IV and oral magnesium supple ments on 12/19/2019 as serum magnesium 1.7 (6) HTN (hypertension): -septic shock resolved, on Metoprolol (7) NICM (nonischemic cardiomyopathy): (8) CHF (congestive heart failure): Atrial Fibrillation Presence of ICD -Chronic Systolic Congestive heart failure and s/p ICD placement in July 2019 Acute on chronic heart failure with reduced ejection fraction and diastolic dysfunction -Pacemaker interrogation on this admission with appropriate pacemaker function as per Dr. Reed -on metoprolol -given IV Lasix 20 mg IV on 12/05/2019 because of volume overload from treating acute kidney injury with IV fluids on this admission, stop the IV fluids on 12/05/2019 -12/05/2019 to 12/06/2019 update: THE DIFLUCAN HAS INCREASED THE INR WHILE PATIENT WAS ON IV HEPARIN BRIDGE WITH COUMADIN with INR rising rapidly on 12/05/2019 - systemic anticoagulation was temporarily held then INR reversed for toe amputation surgery, -systemic anticoagulation currently with coumadin -on metoprolol with good heart rate control currently, also on isordil and hydralazine and statin -hospital course protracted after toe amputation because of need of IV diuresis for fluid overload especially of bilateral lower extremities -transition to oral furosemide starting on 12/19/2019 (9) DM (diabetes mellitus): Type 2 diabetes mellitus with [facility] current use of insulin with complications -complications of diabetic ulcer of 2nd toe on left foot with osteomyelitis has been treated with amputation and IV antibiotics -Hba1c 7.8 % -continue current insulin subcutaneously (10) DVT prophylaxis: -INR is 1.9 on 12/19/2019, increase coumadin 2 mg daily to 3 mg daily starting on 12/19/2019 Admission and Anticipated Discharge Date Admission Date: November 26, 2019 Subjective Patient seen and examined at bedside. working with therapy. breathing on room air. no distress. no chest pain no palpitations. compared to 1 week ago there is significant resolution of leg edema. currently has peripheral guided ultrasound access as per nursing staff. patient given consent form for midline/PICC line for outpatient completion of IV antibiotics Review of Systems Review of Systems: All systems reviewed & are unremarkable except as noted in Subjective Physical Exam Constitutional: comfortable Eyes: PERRL, conjunctivae normal, anicteric sclerae EOM intact bilaterally ENMT: external ear and nose normal, oropharynx normal Neck: normal visual inspection Respiratory: normal respiratory effort Cardiovascular: Rate/Rhythm: regular rate Gastrointestinal (Abdomen): normal bowel sounds, soft, nontender, no hepatosplenomegaly Musculoskeletal: Head/Neck/Chest: normocephalic and head atraumatic Neurologic: PERRL, EOMI, accommodation nl, no face palsy, no dysarthria CN's II-XI intact bilaterally Psychiatric: A+Ox3, euthymic affect Results & Data Results & Data ([facility]) Vital Signs (Past 12 Hours) Vital Signs Temp Pulse Pulse Resp BP BP Pulse Ox 12/19/19 07:50 37.2 C 72 18 129/69 92 12/19/19 03:19 36.6 C 69 22 120/63 95 12/18/19 23:17 36.9 C 73 20 113/64 94 (1) Nausea and vomiting Vomiting Intractability: unspecified Vomiting type: unspecified Qualified Code(s): R11.2 - Nausea with vomiting, unspecified
[2019-12-19] MEDS: MAGNESIUM SULFATE / D5W 1 GM/100 ML BAG IV SCH ×2 (10:56→12:42)
[2019-12-19] MEDS ORDERED: FUROSEMIDE 20 MG TAB PO ONE (11:15)
--- NOTE | 2019-12-19 12:33 | Cardiology Progress Note ---
Date of Service December 19, 2019 Assessment & Plan (1) Acute on chronic heart failure with reduced ejection fraction and diastolic dysfunction: Clinically improving with once again brisk diuresis overnight. We will switch furosemide to oral dosing initially to 100 mg p.o. twice daily with like ly requirements for reduction in dosing in the future following renal function Will give additional supplemental potassium today Continue guideline directed CHF regimen with metoprolol succinate, afterload reduction with hydralazine/nitrate (2) Atrial fibrillation: (3) NICM (nonischemic cardiomyopathy): (4) Renal insufficiency: (5) Presence of biventricular implantable cardioverter-defibrillator (ICD): Subjective Patient was seen and examined, chart, medications, telemetry reviewed. Overall once again improved leg edema remains present but overall mobility improving substantially. PICC line planned for later today per patient patient Physical Exam Constitutional: WD/WN, vitals as above + obese Eyes: PERRL, conjunctivae normal, anicteric sclerae ENMT: external ear and nose normal, oropharynx normal Neck: trachea midline, no thyromegaly + thick neck Respiratory: normal respiratory effort, lungs clear to auscultation Cardiovascular: Rate/Rhythm: + irregularly irregular Heart Sounds: normal S1 and normal S2 Extremities: + edema (1-2+ improved) Chest (Breasts): Chest: + pacemaker Gastrointestinal (Abdomen): normal bowel sounds, soft, nontender, no hepatosplenomegaly Musculoskeletal: no cyanosis or clubbing, extremities motor strength 5/5 Results & Data Vital Signs (Past 12 Hours) Vital Signs Temp Pulse Pulse Resp BP BP Pulse Ox 12/19/19 11:50 36.5 C 78 18 129/78 94 12/19/19 07:50 37.2 C 72 18 129/69 92 12/19/19 03:19 36.6 C 69 22 120/63 95 Laboratory Results Laboratory Results - last 24 hr 12/18/19 12/18/19 12/19/19 16:08 20:32 07:08 PT 18.9 H INR 1.9 H Sodium Potassium Chloride Carbon Dioxide Anion Gap BUN Creatinine Est Cr Clr Drug Dosing Est GFR ( Amer) Est GFR (Non-Af Amer) BUN/Creatinine Ratio Glucose POC Glucose 178 H 183 H Calcium Magnesium 12/19/19 12/19/19 12/19/19 07:08 07:15 11:46 PT INR Sodium 138 Potassium 3.6 Chloride 101 Carbon Dioxide 32 Anion Gap 5.0 BUN 34 H Creatinine 2.25 H Est Cr Clr Drug Dosing 48.2 Est GFR ( Amer) 36.2 Est GFR (Non-Af Amer) 31.2 BUN/Creatinine Ratio 14.9 Glucose 105 H POC Glucose 125 H 175 H Calcium 8.4 L Magnesium 1.7 L (1) Atrial fibrillation Atrial fibrillation type: paroxysmal Qualified Code(s): I48.0 - Paroxysmal atrial fibrillation
[2019-12-19] MEDS ORDERED: POTASSIUM CHLORIDE 20 MEQ TABCR PO ONE (12:41)
[2019-12-19 14:27] LABS: BUN Creatinine Ratio 14.1 (10-20); Calcium 8.7 mg/dl (8.5-10.1); Creatinine Clr Calc Pharmacy 45.4 ml/min; Est GFR (African American) 33.6; Magnesium 2.2 mg/dl (1.8-2.4); Potassium 3.9 mmol/L (3.5-5.1)
[2019-12-19] MEDS: WARFARIN SOD 3 MG TAB PO SCH (15:48)
[2019-12-19] MEDS ORDERED: FUROSEMIDE 20 MG TAB PO SCH (17:00)
[2019-12-19] MEDS ORDERED: FUROSEMIDE 40 MG TAB PO SCH (17:00)
[2019-12-19] MEDS: TAMSULOSIN HCL 0.4 MG CAP PO SCH (21:23)
[2019-12-19] MEDS: SENNA 8.6 MG TAB PO SCH (21:25)
[2019-12-19] MEDS: INSULIN GLARGINE SOLOSTAR 100 UNITS/ML 3 ML PEN SC SCH (21:28)
[2019-12-20] MEDS: ISOSORBIDE DINITRATE 20 MG TAB PO SCH ×3 (06:01→17:31)
[2019-12-20] MEDS: CEFAZOLIN 2000MG 2,000 MG/15 ML SYR IV SCH ×3 (06:03→22:06)
[2019-12-20] MEDS: METOPROLOL SUCC 50MG EXT REL TAB PO SCH ×2 (08:42→21:27)
[2019-12-20] MEDS: PANTOprazole 40 MG TAB PO SCH ×2 (08:43→21:27)
[2019-12-20] MEDS: MAGNESIUM OXIDE 400 MG TAB PO SCH ×2 (08:44→21:27)
[2019-12-20] MEDS: DOCUSATE SODIUM 100 MG CAP PO SCH ×2 (08:44→21:26)
[2019-12-20] MEDS: MULTIVITAMIN TAB PO SCH (08:44)
[2019-12-20] MEDS: INSULIN ASPART 100 UNITS/ML 3 ML PEN SC SCH ×4 (08:46→21:22)
[2019-12-20 09:07] LABS: INR 1.8 (0.9-1.1); Prothrombin Time 18.1 Seconds (9.0-12.0)
[2019-12-20 09:08] LABS: BUN Creatinine Ratio 14.2 (10-20); Calcium 8.6 mg/dl (8.5-10.1); Creatinine Clr Calc Pharmacy 46.8 ml/min; Est GFR (African American) 34.9; Est GFR (Non-African American) 30.1; Magnesium 1.9 mg/dl (1.8-2.4); Potassium 3.8 mmol/L (3.5-5.1)
--- NOTE | 2019-12-20 10:49 | Hospitalist Progress Note ---
Date of Service December 20, 2019 Assessment & Plan (1) Septic shock: septic shock secondary to MSSA (Methicillin-sensitive Staphylococcus aureus) bacteremia due to Left foot toe nonhealing wound from Diabetes Mellitus type 2 with osteomyelitis of the toe status post amputation of 2nd Toe on left foot on 12/07/2019 -Patient is a 59-year-old male with history of nonischemic cardiomyopathy, status post AICD pacemaker placement, diabetes type 2, hypertension, presented with nausea vomiting abdominal pain and required ICU admission for for septic shock -on this stay, patient was transitioned from Dapto and Zosyn to cefazolin IV by day 2 for MSSA bacteremia, continue the IV cefazolin 2g q8 hrs -as patient has improved, hospitalist have re-consulted orthopedics as of 12/05/2019 to consider performing toe amputation on this hospital stay for definitive treatment of osteomyelitis with concurrent IV antibiotics. status post amputation of 2nd Toe on left foot on 12/07/2019 -12/08/2019: continue IV antibiotics of cefazolin 2000 mg q8 hours and wound care of amputated area -Non Weight Bearing of left lower extremity as per orthopedics, will need further PT/OT evaluations but patient would benefit from physical rehabilitation center after hospital stay -Dressings from left foot removed, surgical site is dry and clean -Plan for [facility] after discharge -12/19/2019: discussed with patient that currently he has been on IV antibiotics for 3 weeks while inpatient, the previous hospitalist Dr. Murillo would like patient to continue IV antibiotics when he goes to physical rehabilitation (i deal treatment for duration of osteomyelitis treatment is total of 4 to 6 weeks of IV antibiotics), patient was given consent form for midline or PICC line and signed it. IV team was able to put in ultrasound guided line to right arm as this should be adequate for duration of 3 weeks of IV cefazolin and hospitalist agreed (2) Splenic infarct: -as noted on admission CT scan -Likely secondary to above versus embolic secondary to underlying Atrial fibrillation -patient has been systemically anticoagulated during this hospital stay in general (3) Duodenitis: Esophagitis -as noted on admission CT scan -s/p EGD with esophagitis as well as duodenitis -continue Protonics -patient was on Diflucan, and is stopped on 12/04/2019 because it affected the INR (4) Nausea and vomiting: -resolved (5) HTN (hypertension): -septic shock resolved, on Metoprolol (6) NICM (nonischemic cardiomyopathy): (7) CHF (congestive heart failure): Atrial Fibrillation Presence of ICD -Chronic Systolic Congestive heart failure and s/p ICD placement in July 2019 Acute on chronic heart failure with reduced ejection fraction and diastolic dysfunction -Pacemaker interrogation on this admission with appropriate pacemaker function as per Dr. Reed -on metoprolol -given IV Lasix 20 mg IV on 12/05/2019 because of volume overload from treating acute kidney injury with IV fluids on this admission, stop the IV fluids on 12/05/2019 -12/05/2019 to 12/06/2019 update: THE DIFLUCAN HAS INCREASED THE INR WHILE PATIENT WAS ON IV HEPARIN BRIDGE WITH COUMADIN with INR rising rapidly on 12/05/2019 - systemic anticoagulation was temporarily held then INR reversed for toe amputation surgery, -systemic anticoagulation currently with coumadin -on metoprolol with good heart rate control currently, also on isordil and hydralazine and statin -hospital course protracted after toe amputation because of need of IV diuresis for fluid overload especially of bilateral lower extremities -transition to oral furosemide starting on 12/19/2019, patient received 100 mg oral furosemide as per cardiology, creatinine increased from 2.25 on 12/19/2019 to 2.39 on 12/20/2019 labs. discussed with cardiology about holding off furosemide for now and monitor creatinine on 12/21/2019 (8) TITA (acute kidney injury): -present on admission -creatinine has improved and the IV fluids with bicarbonate is stopped on 12/05/2019 -Baseline creatinine about 1.2, during this admission peaked up to 5, now creatinine around the 2 ranges Hypokalemia, hypomagnesemia -Secondary to diuresis -stable serum potassium currently, given additional IV and oral magnesium supplements on 12/19/2019 as serum magnesium 1.7 (9) DM (diabetes mellitus): Type 2 diabetes mellitus with skilled nursing current use of insulin with complications -complications of diabetic ulcer of 2nd toe on left foot with osteomyelitis has been treated with amputation and IV antibiotics -Hba1c 7.8 % -continue current insulin subcutaneously (10) DVT prophylaxis: -INR is 1.9 on 12/19/2019, increase coumadin 2 mg daily to 3 mg daily starting on 12/19/2019, continue coumadin Admission and Anticipated Discharge Date Admission Date: November 26, 2019 Subjective patient has ultrasound peripheral guided line of right arm in place. patient denies pain of arms. no acute pain in general. no dizziness. no chest pain. no palpitations. breathing on room air. mild bilateral lower extremity edema. no problems with urination. Review of Systems 2 Review of Systems: All systems reviewed & are unremarkable except as noted in Subjective Physical Exam Constitutional: + obese and comfortable Eyes: PERRL, conjunctivae normal, anicteric sclerae EOM intact bilaterally ENMT: external ear and nose normal, oropharynx normal Neck: trachea midline, no thyromegaly normal visual inspection Respiratory: normal respiratory effort, lungs clear to auscultation Cardiovascular: Rate/Rhythm: regular rate Gastrointestinal (Abdomen): normal bowel sounds, soft, nontender, no hepatosplenomegaly Musculoskeletal: Head/Neck/Chest: normocephalic mild bilateral lower extremity edema Neurologic: PERRL, EOMI, accommodation nl, no face palsy, no dysarthria CN's II-XI intact bilaterally Psychiatric: A+Ox3, euthymic affect Results & Data Results & Data ([facility]) Vital Signs (Past 12 Hours) Vital Signs Temp Pulse Pulse Resp BP BP Pulse Ox 12/20/19 07:28 36.9 C 71 16 106/45 L 92 12/20/19 06:00 133/69 12/19/19 23:49 36.8 C 72 18 125/69 95 (1) Nausea and vomiting Vomiting Intractability: unspecified Vomiting type: unspecified Qualified Code(s): R11.2 - Nausea with vomiting, unspecified
--- NOTE | 2019-12-20 11:34 | Cardiology Progress Note ---
Date of Service December 20, 2019 Assessment & Plan (1) Acute on chronic heart failure with reduced ejection fraction and diastolic dysfunction: Clinically improving with once again brisk diuresis overnight. Continue guideline directed CHF regimen with metoprolol succinate, afterload reduction with hydralazine/nitrate Furosemide added hold will likely require daily dosing on discharge Will need close CHF follow-up on transfer to rehab facility (2) Atrial fibrillation: Rate controlled (3) NICM (nonischemic cardiomyopathy): (4) Renal insufficiency: (5) Presence of biventricular implantable cardioverter-defibrillator (ICD): Subjective Patient was seen and examined, chart, medications, telemetry reviewed. Edema continues to improve with nearly 1 L diuresis overnight. Renal function however has declined slightly. Furosemide held this morning appropriately No acute complaints with patient overall clinically feeling improved heart rate better controlled Review of Systems Review of Systems: All systems reviewed & are unremarkable except as noted in HPI & below Physical Exam Constitutional: WD/WN, vitals as above + obese Eyes: PERRL, conjunctivae normal, anicteric sclerae ENMT: external ear and nose normal, oropharynx normal Neck: trachea midline, no thyromegaly + thick neck Respiratory: normal respiratory effort, lungs clear to auscultation Cardiovascular: Rate/Rhythm: + irregularly irregular Heart Sounds: normal S1 and normal S2 Extremities: + edema (1-2+ improved) Chest (Breasts): Chest: + pacemaker Gastrointestinal (Abdomen): normal bowel sounds, soft, nontender, no hepatosplenomegaly Musculoskeletal: no cyanosis or clubbing, extremities motor strength 5/5 Results & Data Vital Signs (Past 12 Hours) Vital Signs Temp Pulse Pulse Resp BP BP Pulse Ox 12/20/19 07:28 36.9 C 71 16 106/45 L 92 12/20/19 06:00 133/69 12/19/19 23:49 36.8 C 72 18 125/69 95 Laboratory Results Laboratory Results - last 24 hr 12/19/19 12/19/19 12/19/19 11:46 13:59 16:57 PT INR Sodium 136 Potassium 3.9 Chloride 99 Carbon Dioxide 30 Anion Gap 7.0 BUN 34 H Creatinine 2.39 H Est Cr Clr Drug Dosing 45.4 Est GFR ( Amer) 33.6 Est GFR (Non-Af Amer) 29.0 BUN/Creatinine Ratio 14.1 Glucose 177 H POC Glucose 175 H 167 H Calcium 8.7 Magnesium 2.2 12/19/19 12/19/19 12/19/19 20:47 20:48 20:50 PT INR Sodium Potassium Chloride Carbon Dioxide Anion Gap BUN Creatinine Est Cr Clr Drug Dosing Est GFR ( Amer) Est GFR (Non-Af Amer) BUN/Creatinine Ratio Glucose POC Glucose 61 L* 172 H 171 H Calcium Magnesium 12/20/19 12/20/19 12/20/19 07:35 08:41 08:41 PT 18.1 H INR 1.8 H Sodium 136 Potassium 3.8 Chloride 100 Carbon Dioxide 30 Anion Gap 6.0 BUN 33 H Creatinine 2.32 H Est Cr Clr Drug Dosing 46.8 Est GFR ( Amer) 34.9 Est GFR (Non-Af Amer) 30.1 BUN/Creatinine Ratio 14.2 Glucose 167 H POC Glucose 125 H Calcium 8.6 Magnesium 1.9 (1) Atrial fibrillation Atrial fibrillation type: paroxysmal Qualified Code(s): I48.0 - Paroxysmal atrial fibrillation
--- NOTE | 2019-12-20 14:46 | Pharmacy Report ---
Pharmacy Glycemic Short Note 2 - Date of Service December 20, 2019 - Glycemic Short BSG Results (Last 24 hours): 12/19/19 12/19/19 12/19/19 16:57 20:47 20:48 Glucose POC Glucose 167 H 61 L* 172 H 12/19/19 12/20/19 12/20/19 20:50 07:35 08:41 Glucose 167 H POC Glucose 171 H 125 H 12/20/19 11:46 Glucose POC Glucose 158 H Outpatient Anti-diabetic Regimen: * Lantus 20 units SC HS * Metformin * Dulaglutide * Canagliflozin * A1c = 7.8 % on 11/27/19 ASSESSMENT: * Patient received 32 units of insulin yesterday: * 12 units of basal insulin with Lantus * 20 units of bolus insulin with Novolog * BSGs ranged from 105-175 mg/dl * No changes in risk factors for insulin resistance. No changes are required to insulin regimen at this time. PLAN FOR INPATIENT GLYCEMIC CONTROL: * Continue to hold outpatient oral diabetes medications * Basal insulin * Lantus 12 units qPM * Bolus insulin * Novolog ACHS * Goal range: 80-140 mg/dL * Correction factor: 20 mg/dL/unit * Carb ratio: 1 unit for every 6 g CHO DISCHARGE PLANNING: * Consider discontinuing canagliflozin (Invokana) on discharge, as this medication carries a Black Box Warning in patients with amputation. * Patient's A1c (7.8%) indicates suboptimal glycemic control. Would prefer to optimize A1c, especially to promote wound healing and discourage infection. * Consider adjusting patient's insulin dose on discharge, and/or maximizing his other oral agents, as renal function allows.
[2019-12-20] MEDS: WARFARIN SOD 3 MG TAB PO SCH (17:31)
[2019-12-20] MEDS: INSULIN GLARGINE SOLOSTAR 100 UNITS/ML 3 ML PEN SC SCH (21:22)
[2019-12-20] MEDS: TAMSULOSIN HCL 0.4 MG CAP PO SCH (21:27)
[2019-12-20] MEDS: SENNA 8.6 MG TAB PO SCH (21:28)
[2019-12-21] MEDS: CEFAZOLIN 2000MG 2,000 MG/15 ML SYR IV SCH ×2 (06:15→14:05)
[2019-12-21] MEDS: ISOSORBIDE DINITRATE 20 MG TAB PO SCH ×2 (07:15→12:21)
[2019-12-21 08:03] LABS: INR 1.6 (0.9-1.1); Prothrombin Time 16.9 Seconds (9.0-12.0)
[2019-12-21] MEDS: INSULIN ASPART 100 UNITS/ML 3 ML PEN SC SCH ×2 (08:20→12:20)
[2019-12-21] MEDS: METOPROLOL SUCC 50MG EXT REL TAB PO SCH (08:21)
[2019-12-21] MEDS: PANTOprazole 40 MG TAB PO SCH (08:22)
[2019-12-21] MEDS: MAGNESIUM OXIDE 400 MG TAB PO SCH (08:22)
[2019-12-21] MEDS: MULTIVITAMIN TAB PO SCH (08:22)
[2019-12-21] MEDS: DOCUSATE SODIUM 100 MG CAP PO SCH (08:24)
[2019-12-21] MEDS ORDERED: FUROSEMIDE 40 MG TAB PO ONE (08:30)
[2019-12-21 08:38] LABS: Albumin Level 2.2 gm/dl (3.4-5.0); BUN Creatinine Ratio 14.5 (10-20); Calcium 8.5 mg/dl (8.5-10.1); Creatinine Clr Calc Pharmacy 47.8 ml/min; Est GFR (African American) 35.8; Est GFR (Non-African American) 30.9; Potassium 3.7 mmol/L (3.5-5.1)
[2019-12-21 08:41] LABS: Albumin Globulin Ratio 0.5 (0.9-2); Bilirubin,Total 0.3 mg/dl (0.2-1); Globulin 4.4 gm/dl (2.5-4.0); Total Protein 6.6 gm/dl (6.4-8.2)
--- NOTE | 2019-12-21 14:06 | Cardiology Progress Note ---
Date of Service December 21, 2019 Assessment & Plan (1) Acute on chronic heart failure with reduced ejection fraction and diastolic dysfunction: Clinically improving with once again brisk diuresis overnight. Continue guideline directed CHF regimen with metoprolol succinate, afterload reduction with hydralazine/nitrate Would resume furosemide at 60 mg p.o. daily with close clinical follow-up via renal function as well as CHF instructions daily weights I's and O's sodium and fluid restrict (2) Atrial fibrillation: Rate controlled (3) NICM (nonischemic cardiomyopathy): L (4) Renal insufficiency: (5) Presence of biventricular implantable cardioverter-defibrillator (ICD): I Subjective Patient was seen and examined, chart, medications, telemetry reviewed. Edema continues to improve Renal function improved Review of Systems Review of Systems: All systems reviewed & are unremarkable except as noted in HPI & below Physical Exam Constitutional: WD/WN, vitals as above + obese Eyes: PERRL, conjunctivae normal, anicteric sclerae ENMT: external ear and nose normal, oropharynx normal Neck: trachea midline, no thyromegaly + thick neck Respiratory: normal respiratory effort, lungs clear to auscultation Cardiovascular: Rate/Rhythm: + irregularly irregular Heart Sounds: normal S1 and normal S2 Extremities: + edema (1-2+ improved) Chest (Breasts): Chest: + pacemaker Gastrointestinal (Abdomen): normal bowel sounds, soft, nontender, no hepatosplenomegaly Musculoskeletal: no cyanosis or clubbing, extremities motor strength 5/5 Results & Data Vital Signs (Past 12 Hours) Vital Signs Temp Pulse Resp BP Pulse Ox 12/21/19 12:20 148/77 H 12/21/19 07:31 36.7 C 67 20 141/73 H 95 Laboratory Results Laboratory Results - last 24 hr 12/20/19 12/20/19 12/21/19 16:30 20:04 07:10 PT INR Sodium Potassium Chloride Carbon Dioxide Anion Gap BUN Creatinine Est Cr Clr Drug Dosing Est GFR ( Amer) Est GFR (Non-Af Amer) BUN/Creatinine Ratio Glucose POC Glucose 119 H 105 H 104 H Calcium Total Bilirubin AST ALT Alkaline Phosphatase Total Protein Albumin Globulin Albumin/Globulin Ratio 12/21/19 12/21/19 12/21/19 07:29 07:29 11:41 PT 16.9 H INR 1.6 H Sodium 139 Potassium 3.7 Chloride 103 Carbon Dioxide 31 Anion Gap 5.0 BUN 33 H Creatinine 2.27 H Est Cr Clr Drug Dosing 47.8 Est GFR ( Amer) 35.8 Est GFR (Non-Af Amer) 30.9 BUN/Creatinine Ratio 14.5 Glucose 96 POC Glucose 154 H Calcium 8.5 Total Bilirubin 0.3 AST 12 L ALT 8 L Alkaline Phosphatase 79 Total Protein 6.6 Albumin 2.2 L Globulin 4.4 H Albumin/Globulin Ratio 0.5 L (1) Atrial fibrillation Atrial fibrillation type: paroxysmal Qualified Code(s): I48.0 - Paroxysmal atrial fibrillation
--- NOTE | 2019-12-21 14:33 | Hospitalist Progress Note ---
Date of Service December 21, 2019 Assessment & Plan (1) Septic shock: septic shock secondary to MSSA (Methicillin-sensitive Staphylococcus aureus) bacteremia due to Left foot toe nonhealing wound from Diabetes Mellitus type 2 with osteomyelitis of the toe status post amputation of 2nd Toe on left foot on 12/07/2019 -Patient is a 59-year-old male with history of nonischemic cardiomyopathy, status post AICD pacemaker placement, diabetes type 2, hypertension, presented with nausea vomiting abdominal pain and required ICU admission for for septic shock -on this stay, patient was transitioned from Dapto and Zosyn to cefazolin IV by day 2 for MSSA bacteremia, continue the IV cefazolin 2g q8 hrs -as patient has improved, hospitalist have re-consulted orthopedics as of 12/05/2019 to consider performing toe amputation on this hospital stay for definitive treatment of osteomyelitis with concurrent IV antibiotics. status post amputation of 2nd Toe on left foot on 12/07/2019 -12/08/2019: continue IV antibiotics of cefazolin 2000 mg q8 hours and wound care of amputated area -Non Weight Bearing of left lower extremity as per orthopedics, will need further PT/OT evaluations but patient would benefit from physical rehabilitation center after hospital stay -Dressings from left foot removed, surgical site is dry and clean -Plan for [facility] after discharge -12/19/2019: discussed with patient that currently he has been on IV antibiotics for 3 weeks while inpatient, the previous hospitalist Dr. Murillo would like patient to continue IV antibiotics when he goes to physical rehabilitation (i deal treatment for duration of osteomyelitis treatment is total of 4 to 6 weeks of IV antibiotics), patient was given consent form for midline or PICC line and signed it. IV team was able to put in ultrasound guided line to right arm as this should be adequate for duration of 3 weeks of IV cefazolin and hospitalist agreed -12/21/2019 (Discharge to [facility] for physical rehabilitation. Patient will go with right arm ultrasound guided peripheral line to continue toe receive IV antibiotics (cefazolin 2000 mg q8 hours) as outpatient with last day of antibiotics as January 09 2020 as this would be 6 weeks from first negative blood culture transition to oral furosemide starting on 12/19/2019, patient received 100 mg oral furosemide BID as per cardiology, creatinine increased from 2.25 on to 2.39 on 12/19/2019 labs. Lasix held on 12/20/2019. creatinine is 2.27 on 12/21/2019 and Lasix oral 40 mg given. Cardiology service recommends discharge on 60 mg furosemide daily. Patient should have creatinine checked in 3 to 6 days from hospital discharge patient's discharge medication includes warfarin as 4 mg oral daily as current INR only 1.6 and the goal INR is 2 to 3. Patient will need next INR checked in 3 to 6 days from hospital discharge on 12/21/2019. other changes to patient's home medications includes cardiac medications during hospital stay, so home Entresto dose should be held off until follow up with outpatient cardiology clinic Appointment 12/27/2019 11:40 AM Provider [facility] 3:00 PM Provider Gunner Michelle PA-C Department Cardiology, [facility] 01/14/2020 9:00 AM Provider [facility] [address] Department Cardiology, [facility] 02/18/2020 8:00 AM Provider [facility] [place] [facility] Pharm[facility], [place] 04/21/2020 8:15 AM Provider [facility] [address] Department Cardiology, [facility]) orthopedics recommendations for right foot with the toe amputation sites with sutures in place (ACTIVITY RECOMMENDATIONS: Limitations: Heel weight bearing only if able to tolerate. SPECIAL CARE INSTRUCTIONS: * Some drainage onto the dressing is normal and is no cause for alarm. * Some swelling is natural especially after walking. * When resting, keep your foot elevated above the level of your heart. * Call [facility] if you notice: -Increased drainage -Fever over 101 degrees F -Severe constant pain BANDAGE: * Leave bandage/cast in place unless otherwise directed. * Keep bandage/cast dry at all times. FOLLOW UP VISIT WITH DR. KRISHNAMURTHY If appointment is not already scheduled: Please call [facility] after you get home today to schedule a follow-up appointment for 10-[address] Krishnamurthy at .) (2) Splenic infarct: -as noted on admission CT scan -Likely secondary to above versus embolic secondary to underlying Atrial fibrillation -patient has been systemically anticoagulated during this hospital stay in general (3) Duodenitis: Esophagitis -as noted on admission CT scan -s/p EGD with esophagitis as well as duodenitis, no malignancy in final pathology report from EGD -patient was on Diflucan, and is stopped on 12/04/2019 because it affected the INR -continue pantoprazole as 40 mg BID (4) Nausea and vomiting: -resolved (5) HTN (hypertension): -septic shock resolved -off home dose Entresto during this hospital stay as other cardiac medications adjusted and added on this admission, home Entresto dose should be held off until follow up with outpatient cardiology clinic -on Metoprolol succinate 1000 mg BID, isosorbide dinitrate 20 mg TID, hydralazine 12.5 mg TID, tamsulosin daily (6) NICM (nonischemic cardiomyopathy): (7) CHF (congestive heart failure): Atrial Fibrillation Presence of ICD -Chronic Systolic Congestive heart failure and s/p ICD placement in July 2019 Acute on chronic heart failure with reduced ejection fraction and diastolic dysfunction -Pacemaker interrogation on this admission with appropriate pacemaker function as per Dr. Reed -on metoprolol -given IV Lasix 20 mg IV on 12/05/2019 because of volume overload from treating acute kidney injury with IV fluids on this admission, stop the IV fluids on 12/05/2019 -12/05/2019 to 12/06/2019 update: THE DIFLUCAN HAS INCREASED THE INR WHILE PATIENT WAS ON IV HEPARIN BRIDGE WITH COUMADIN with INR rising rapidly on 12/05/2019 - systemic anticoagulation was temporarily held then INR reversed for toe amputation surgery, -systemic anticoagulation currently with coumadin -on metoprolol with good heart rate control currently, also on isordil and hydralazine and statin -hospital course protracted after toe amputation because of need of IV diuresis for fluid overload especially of bilateral lower extremities -transition to oral furosemide starting on 12/19/2019, patient received 100 mg oral furosemide BID as per cardiology, creatinine increased from 2.25 on 12/18/2019 to 2.39 on 12/19/2019 labs. Lasix held on 12/20/2019. creatinine is 2.27 on 12/21/2019 and Lasix oral 40 mg given. Cardiology service recommends discharge on 60 mg furosemide daily. Patient should have creatinine checked in 3 to 6 days from hospital discharge (8) TITA (acute kidney injury): -present on admission -creatinine has improved and the IV fluids with bicarbonate is stopped on 12/05/2019 -Baseline creatinine about 1.2, during this admission peaked up to 5, now creatinine stabilized in the 2 ranges Hypokalemia, hypomagnesemia -Secondary to diuresis -stable serum potassium currently, given additional IV and oral magnesium supplements on 12/19/2019 as serum magnesium 1.7 (9) DM (diabetes mellitus): Type 2 diabetes mellitus with group home current use of insulin with complications -complications of diabetic ulcer of 2nd toe on left foot with osteomyelitis has been treated with amputation and IV antibiotics -Hba1c 7.8 %, patient received basal and sliding scale insulin on this admission -continue basal insulin subcutaneously as 12 units qhs and patient can resume home dose diabetes medications in addition to this insulin dosing on discharge (10) DVT prophylaxis: -INR is 1.6 on 12/19/2019, increase coumadin from 3 mg daily to 4 mg daily Admission and Anticipated Discharge Date Admission Date: November 26, 2019 Subjective no acute distress. patient breathing on room air. no chest pain. no palpitations. no dizziness. no headache. discharge to [facility] with his family member to provide transport. discharge plans and instructions discussed in detail Review of Systems Review of Systems: All systems reviewed & are unremarkable except as noted in Subjective Physical Exam Constitutional: + obese and comfortable Eyes: PERRL, conjunctivae normal, anicteric sclerae EOM intact bilaterally ENMT: external ear and nose normal, oropharynx normal Neck: trachea midline, no thyromegaly normal visual inspection Respiratory: normal respiratory effort, lungs clear to auscultation normal respiratory effort Cardiovascular: Rate/Rhythm: regular rate Gastrointestinal (Abdomen): normal bowel sounds, soft, nontender, no hepatosplenomegaly Musculoskeletal: Head/Neck/Chest: normocephalic and head atraumatic Extremities: + lower extremity abnormal to inspection (mild bilateral lower extremity edema) and + foot abnormality (sutures in place of right foot toe amputations) Neurologic: PERRL, EOMI, accommodation nl, no face palsy, no dysarthria CN's II-XI intact bilaterally Psychiatric: A+Ox3, euthymic affect Results & Data Results & Data ([facility]) Vital Signs (Past 12 Hours) Vital Signs Temp Pulse Resp BP Pulse Ox 12/21/19 12:20 148/77 H 12/21/19 07:31 36.7 C 67 20 141/73 H 95 (1) Nausea and vomiting Vomiting Intractability: unspecified Vomiting type: unspecified Qualified Code(s): R11.2 - Nausea with vomiting, unspecified
[2019-12-21] MEDS ORDERED: WARFARIN SOD 4 MG TAB PO SCH (16:00)
[2019-12-22] MEDS ORDERED: FUROSEMIDE 20 MG TAB PO SCH (09:00)
--- NOTE | 2019-12-23 08:36 | Discharge Summary ---
Date of Service DECEMBER 21, 2019 Admission HPI Per Admitting Provider Patient is a 59 yo obese male who presented to the ED with abdominal pain and intractable N/V. 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 He started to have pain in his mid & right abdomen while he was at work Tuesday morning. 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 No recent history of any injury or trauma. He continued to have pain yesterday which became worse throughout the day. He started to have N/V and increased pain early this morning. He hasn't eaten anything for about 12 hours and hasn't had any vomiting this morning. He continues to have nausea and abdominal pain though. The pain is burning in nature. He has had retching today and did have 1 episode of diarrhea this morning. Eating and drinking makes the pain worse which is why he hasn't been eating today. No hx of abdominal surgeries. He did have an outpatient Echo completed on 11/21/19 which showed EF 40% which was actually improved after placement of ICD. LV thickness was slightly increased, and Mild MR was noted. No other valvular disease noted. He does not have history of AFib. He does take 81 mg ASA daily. No recent infections or trauma. No history of blood clots. Since presentation, patient was noted to have mild anemia with WBC count of 9.96. Slight neutrophilia. Sodium 130, potassium 97, Creatinine 1.5. Troponin negative. Lipase normal. CT Abd/Pelvis showed multiple small peripheral hypodensities within the spleen measuring up to 1.8 m. Possible small splenic infarcts. Mild fluid adjacent to the duodenum- possible duodenitis versus volume overload. 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 Splenic infarct Duodenitis Esophagitis Acute Kidney Injury Atrial Fibrillation NICM (nonischemic cardiomyopathy): Presence of biventricular implantable cardioverter-defibrillator (ICD) Discharge Exam Constitutional + obese and comfortable Eyes PERRL, conjunctivae normal, anicteric sclerae EOM intact bilaterally ENMT external ear and nose normal, oropharynx normal Neck trachea midline, no thyromegaly normal visual inspection Respiratory normal respiratory effort, lungs clear to auscultation normal respiratory effort Cardiovascular Rate/Rhythm: regular rate Gastrointestinal (Abdomen) normal bowel sounds, soft, nontender, no hepatosplenomegaly Musculoskeletal Head/Neck/Chest: normocephalic and head atraumatic Extremities: + lower extremity abnormal to inspection (mild bilateral lower extremity edema) and + foot abnormality (sutures in place of right foot toe amputations) Neurologic PERRL, EOMI, accommodation nl, no face palsy, no dysarthria CN's II-XI intact bilaterally Psychiatric A+Ox3, euthymic affect Discharge Data Allergies Allergy/AdvReac Type Severity Reaction Status Date / Time No Known Allergies Allergy Unverified 11/26/19 10:57 Consultations 11/26/19 12:59 ED Decision to Admit Stat 11/26/19 16:15 Consult Case Management - Discharge Planning Routine Consult Gastroenterology Routine Consult General Surgery Routine 11/27/19 09:04 Consult Wound Care Provider Routine 11/28/19 04:55 Consult Communication Signals Intelligence Routine 11/28/19 08:00 Consult Cardiology Routine 11/28/19 08:52 Consult Nephrology Routine 12/01/19 17:13 Consult Orthopedic Surgery Routine 12/07/19 18:17 Consult Case Management - Discharge Planning Routine Procedures Performed Operation Date: 11/27/19 08:30 Actual Procedures p EGD Biopsy Cytology - Dolores Elliott M.D. Operation Date: 11/28/19 06:30 Actual Procedures p Cath, Left with Cors and Vent - Dimitrios Liz MD s Cineradiography w/Routine Exam - Dimitrios Liz MD Operation Date: 12/07/19 12:30 Actual Procedures p Left 2nd Toe Amputation(Left) - Austyn Krishnamurthy DO Ordered Studies 11/26/19 11:19 CT abd pelvis IV con only Stat 11/26/19 15:28 US venous doppler LE BI Stat 11/27/19 09:35 US duplex renal artery Routine 11/27/19 10:00 US gallbladder Routine 11/28/19 04:33 US point of care ultrasound Urgent 11/28/19 06:22 CL Cath Imgs for PACS use only Routine 11/29/19 09:49 US point of care ultrasound Routine 12/04/19 13:30 US arterial duplex LE Routine Hospital Course (1) Septic shock: septic shock secondary to MSSA (Methicillin-sensitive Staphylococcus aureus) bacteremia due to Left foot toe nonhealing wound from Diabetes Mellitus type 2 with osteomyelitis of the toe status post amputation of 2nd Toe on left foot on 12/07/2019 -Patient is a 59-year-old male with history of nonischemic cardiomyopathy, status post AICD pacemaker placement, diabetes type 2, hypertension, presented with nausea vomiting abdominal pain and required ICU admission for for septic shock -on this stay, patient was transitioned from Dapto and Zosyn to cefazolin IV by day 2 for MSSA bacteremia, continue the IV cefazolin 2g q8 hrs -as patient has improved, hospitalist have re-consulted orthopedics as of 12/05/2019 to consider performing toe amputation on this hospital stay for definitive treatment of osteomyelitis with concurrent IV antibiotics. status post amputation of 2nd Toe on left foot on 12/07/2019 -12/08/2019: continue IV antibiotics of cefazolin 2000 mg q8 hours and wound care of amputated area -Non Weight Bearing of left lower extremity as per orthopedics, will need further PT/OT evaluations but patient would benefit from physical rehabilitation center after hospital stay -Dressings from left foot removed, surgical site is dry and clean -Plan for [facility] rehab after discharge -12/19/2019: discussed with patient that currently he has been on IV antibiotics for 3 weeks while inpatient, the previous hospitalist Dr. Murillo would like patient to continue IV antibiotics when he goes to physical rehabilitation (ideal treatment for duration of osteomyelitis treatment is total of 4 to 6 weeks of IV antibiotics), patient was given consent form for midline or PICC line and signed it. IV team was able to put in ultrasound guided line to right arm as this should be adequate for duration of 3 weeks of IV cefazolin and hospitalist agreed -12/21/2019 (Discharge to [facility] for physical rehabilitation. Patient will go with right arm ultrasound guided peripheral line to continue toe receive IV antibiotics (cefazolin 2000 mg q8 hours) as outpatient with last day of antibiotics as January 09 2020 as this would be 6 weeks from first negative blood culture transition to oral furosemide starting on 12/19/2019, patient received 100 mg oral furosemide BID as per cardiology, creatinine increased from 2.25 on 12/18/2019 to 2.39 on 12/19/2019 labs. Lasix held on 12/20/2019. creatinine is 2.27 on 12/21/2019 and Lasix oral 40 mg given. Cardiology service recommends discharge on 60 mg furosemide daily. Patient should have creatinine checked in 3 to 6 days from hospital discharge patient's discharge medication includes warfarin as 4 mg oral daily as current INR only 1.6 and the goal INR is 2 to 3. Patient will need next INR checked in 3 to 6 days from hospital discharge on 12/21/2019. other changes to patient's home medications includes cardiac medications during hospital stay, so home Entresto dose should be held off until follow up with outpatient cardiology clinic Appointment 12/27/2019 11:40 AM Provider [facility]2020 3:00 PM Provider Gunner Michelle PA-C Department Cardiology, [facility] 01/14/2020 9:00 AM Provider [facility] Department Cardiology, [facility] 02/18/2020 8:00 AM Provider [facility] Department Pharmacy, [place] 04/21/2020 8:15 AM Provider [facility] Department Cardiology, [facility]) orthopedics recommendations for right foot with the toe amputation sites with sutures in place (ACTIVITY RECOMMENDATIONS: Limitations: Heel weight bearing only if able to tolerate. SPECIAL CARE INSTRUCTIONS: * Some drainage onto the dressing is normal and is no cause for alarm. * Some swelling is natural especially after walking. * When resting, keep your foot elevated above the level of your heart. * Call [facility] if you notice: -Increased drainage -Fever over 101 degrees F -Severe constant pain BANDAGE: * Leave bandage/cast in place unless otherwise directed. * Keep bandage/cast dry at all times. FOLLOW UP VISIT WITH DR. KRISHNAMURTHY If appointment is not already scheduled: Please call [facility] after you get home today to schedule a follow-up appointment for 10-[address] Krishnamurthy at .) (2) Splenic infarct: -as noted on admission CT scan -Likely secondary to above versus embolic secondary to underlying Atrial fibril lation -patient has been systemically anticoagulated during this hospital stay in general (3) Duodenitis: Esophagitis -as noted on admission CT scan -s/p EGD with esophagitis as well as duodenitis, no malignancy in final pathology report from EGD -patient was on Diflucan, and is stopped on 12/04/2019 because it affected the INR -continue pantoprazole as 40 mg BID (4) Nausea and vomiting: -resolved (5) HTN (hypertension): -septic shock resolved -off home dose Entresto during this hospital stay as other cardiac medications adjusted and added on this admission, home Entresto dose should be held off until follow up with outpatient cardiology clinic -on Metoprolol succinate 1000 mg BID, isosorbide dinitrate 20 mg TID, hydralazine 12.5 mg TID, tamsulosin daily (6) NICM (nonischemic cardiomyopathy): (7) CHF (congestive heart failure): Atrial Fibrillation Presence of ICD -Chronic Systolic Congestive heart failure and s/p ICD placement in July 2019 Acute on chronic heart failure with reduced ejection fraction and diastolic dysfunction -Pacemaker interrogation on this admission with appropriate pacemaker function as per Dr. Reed -on metoprolol -given IV Lasix 20 mg IV on 12/05/2019 because of volume overload from treating acute kidney injury with IV fluids on this admission, stop the IV fluids on 12/05/2019 -12/05/2019 to 12/06/2019 update: THE DIFLUCAN HAS INCREASED THE INR WHILE PATIENT WAS ON IV HEPARIN BRIDGE WITH COUMADIN with INR rising rapidly on 12/05/2019 - systemic anticoagulation was temporarily held then INR reversed for toe amputation surgery, -systemic anticoagulation currently with coumadin -on metoprolol with good heart rate control currently, also on isordil and hydralazine and statin -hospital course protracted after toe amputation because of need of IV diuresis for fluid overload especially of bilateral lower extremities -transition to oral furosemide starting on 12/19/2019, patient received 100 mg oral furosemide BID as per cardiology, creatinine increased from 2.25 on 12/18/2019 to 2.39 on 12/19/2019 labs. Lasix held on 12/20/2019. creatinine is 2.27 on 12/21/2019 and Lasix oral 40 mg given. Cardiology service recommends discharge on 60 mg furosemide daily. 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 -complications of diabetic ulcer of 2nd toe on left foot with osteomyelitis has been treated with amputation and IV antibiotics -Hba1c 7.8 %, patient received basal and sliding scale insulin on this admission -continue basal insulin subcutaneously as 12 units qhs and patient can resume home dose diabetes medications in addition to this insulin dosing on discharge (10) DVT prophylaxis: -INR is 1.6 on 12/19/2019, increase coumadin from 3 mg daily to 4 mg daily Total Time Total Time Spent Total Time Spent (In Minutes): 40 MINUTES Total Time Includes: Examination of the Patient, Discharge Planning, Medication Reconciliation and Communication With Other Providers Discharge Plan Discharge Items Patient Disposition: Transfer Inpatient Rehab Fac Reason For Visit: ABDOMINAL PAIN SPLENIC INFARCTS Discharge Diagnosis: septic shock secondary to MSSA (Methicillin-sensitive Staphylococcus aureus) bacteremia due to Left foot toe nonhealing wound from Diabetes Mellitus type 2 with osteomyelitis of the toe Type 2 diabetes mellitus with 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 with complications Splenic infarct Duodenitis Esophagitis Acute Kidney Injury Atrial Fibrillation NICM (nonischemic cardiomyopathy): Presence of biventricular implantable cardioverter-defibrillator (ICD) Condition on Discharge: Good Activity: Per Instructions section Lifting: Gradually increase as tolerated Bathing: Keep incision dry Sexual Activity: When tolerated Non-emergency contact: Primary Care Provider and Specialist Call non-emergency contact if: you have any medication questions Follow-up/Referrals: Beverly Spangler DO [Primary Care Provider] - Diet: Carb Consistent or DM2 and Low Sodium (2gm) Addtl Attending Provider Instructions: Discharge to [facility] for physical rehabilitation. Patient will go with right arm ultrasound guided peripheral line to continue toe receive IV antibiotics (cefazolin 2000 mg q8 hours) as outpatient with last day of antibiotics as January 09 2020 as this would be 6 weeks from first negative blood culture transition to oral furosemide starting on 12/19/2019, patient received 100 mg oral furosemide BID as per cardiology, creatinine increased from 2.25 on 12/18/2019 to 2.39 on 12/19/2019 labs. Lasix held on 12/20/2019. creatinine is 2.27 on 12/21/2019 and Lasix oral 40 mg given. Cardiology service recommends discharge on 60 mg furosemide daily. Patient should have creatinine checked in 3 to 6 days from hospital discharge patient's discharge medication includes warfarin as 4 mg oral daily as current INR only 1.6 and the goal INR is 2 to 3. Patient will need next INR checked in 3 to 6 days from hospital discharge on 12/21/2019 other changes to patient's home medications includes cardiac medications during hospital stay, so home Entresto dose should be held off until follow up with outpatient cardiology clinic Appointment 12/27/2019 11:40 AM Provider [facility]/18/2020 3:00 PM Provider Gunner Michelle PA-C Department Cardiology, [facility] 01/14/2020 9:00 AM Provider [facility] Department Cardiology, [facility] 02/18/2020 8:00 AM Provider [facility] [place] Department Pharmacy, [place] 04/21/2020 8:15 AM Provider [facility] Department Cardiology, [facility] Addtl Account Adjuster Provider Instructions: (ACTIVITY RECOMMENDATIONS: Limitations: Heel weight bearing only if able to tolerate. SPECIAL CARE INSTRUCTIONS: * Some drainage onto the dressing is normal and is no cause for alarm. * Some swelling is natural especially after walking. * When resting, keep your foot elevated above the level of your heart. * Call [facility] if you notice: -Increased drainage -Fever over 101 degrees F -Severe constant pain BANDAGE: * Leave bandage/cast in place unless otherwise directed. * Keep bandage/cast dry at all times. FOLLOW UP VISIT WITH DR. KRISHNAMURTHY If appointment is not already scheduled: Please call [facility] after you get home today to schedule a follow-up appointment for 10-[address] Krishnamurthy at .) CHF INSTRUCTION Call 911 and go to the Emergency Room if: * You have tightness or pain in your chest that does not go away with rest or Nitroglycerin * You are very short of breath even with rest Call your doctor if any of the following symptoms or problems start or get worse: * Shortness of breath or difficulty breathing * Wake up at night short of breath * Chest pain * Cough * Swelling of your hands, fee, or legs * More fatigued or tired with your normal activity * Palpitations - sudden fast heart beats WEIGHT * Weigh yourself every morning after using the bathroom. * Use the same scale. * Wear the same amount of clothing. * Write your weight down on your chart. * Call your doctor if you gain more than 2-3 pounds in 1-2 days. MEDICATIONS * Use this discharge instruction sheet for instructions. * Take your medications at the time your doctor ordered. * Do not skip a dose of your medicines. * If you miss a dose of medicine, take as soon as possible, but DO NOT DOUBLE A DOSE. * Read your medicine information when you get home. * Know all of the side effects of your medicine. * Call your doctor's office if you have any side effects. * Be sure all of your doctors know what medicine and herbs you take (including cold, flu, and herbal medicine). * Pain Medicine: If you do not get relief from your pain, please call your doctor for help. Take the following with you to your follow-up doctor appointments: * Weight Chart * Medication List * List of questions Do not drink excessive alcohol, beer or wine. Pending Studies at Discharge: No Stand-Alone Forms: My [facility] Skilled Items Patient informed of condition?: Yes DNR: No Discharge Level of Care: Acute rehab Communicable Disease: No Discharge Prognosis: Stable Lines: Peripheral IV and US Guided Peripheral IV Urinary Catheter: No Medications and DC Order Prescriptions: New acetaminophen 325 mg Tablet 325 mg PO Q6H PRN (Reason: fever or pain) 5 Days Qty: 20 RF: 0 metoprolol succinate 50 mg Tablet Extended Release 24 Hr 100 mg PO BID 30 Days Qty: 120 RF: 0 hydralazine 25 mg Tablet 12.5 mg PO TID 30 Days Qty: 45 RF: 0 magnesium oxide 400 mg (241.3 mg magnesium) Tablet 400 mg PO DAILY 10 Days Qty: 10 RF: 0 tamsulosin 0.4 mg Capsule 0.4 mg PO HS 30 Days Qty: 30 RF: 0 pantoprazole 40 mg Tablet,Delayed Release (Dr/Ec) 40 mg PO BID 30 Days Qty: 60 RF: 0 isosorbide dinitrate 20 mg Tablet 20 mg PO TID@0700,1200,1700 30 Days Qty: 30 RF: 0 furosemide 20 mg Tablet 60 mg PO QAM 30 Days Qty: 90 RF: 0 Lantus Solostar U-100 Insulin 100 unit/mL (3 mL) Insulin Pen 12 unit SC HS 30 Days Qty: 3.6 RF: 0 warfarin 4 mg tablet 4 mg PO DAILY 30 Days Qty: 30 RF: 0 Continued atorvastatin 80 mg tablet 80 mg PO QAM RF: 0 metformin 1,000 mg tablet 1,000 mg PO BIDM RF: 0 nitroglycerin [Nitrostat] 0.4 mg Tablet, Sublingual 0.4 mg sublingual UD PRN (Reason: Chest Pain) RF: 0 Men's Multivitamin 400-20-300 mcg Tablet 1 tab PO QAM RF: 0 Invokana 300 mg tablet 300 mg PO QAM RF: 0 Trulicity 1.5 mg/0.5 mL pen injector 1.5 mg SUBCUT MOLINA RF: 0 Discontinued aspirin [Aspir-81] 81 mg Tablet,Delayed Release (Dr/Ec) 81 mg PO QAM RF: 0 furosemide 20 mg tablet 20 mg PO BID RF: 0 Lantus Solostar U-100 Insulin 100 unit/mL (3 mL) insulin pen 20 unit SUBCUT HS RF: 0 Entresto 49-51 mg tablet 1 tab PO BID RF: 0 Discharge Orders: Discharge Order (Routine); Ordered 12/21/19 Ordered By: Roberto Lemus/Other Patient Handouts: Diabetes Type 2 Managing Admission Data Admit Date/Time: 11/26/19 13:46 Attending Provider: Roberto Pérez Admit Provider: Roberto Pérez Primary Care Provider: Beverly Spangler Other Providers: Nasir Myles ; [facility] ; Roberto Pérez ; Dolores Elliott ; Rupesh Lane ; Connor Lyons ; Marvin Elder ; German Reed ; Kellie Coughlin ; Alexander Olivas Other Interventions: Discharge Summary Assessment (RN) Last Done: 12/21/19 14:53 DC Date/Time DO NOT enter until pt leaves facility: 12/21/19 15:58
== END 2019-12-21 15:58 | DRG 981 ==
LOC: ED 10:08 → 2S 13:46 → SUATTDRO 13:46 → 2S 15:18 → 1E 11-28 04:45 → 2S 12-03 15:24 → 2W 12-19 11:50

== ENCOUNTER 2021-09-22 21:09 | Inpatient (IN) ==
[2021-09-22] MEDS ORDERED: ACETAMINOPHEN 325 MG TAB PO STA (21:25)
[2021-09-22] MEDS ORDERED: SODIUM CHLORIDE 0.9% 1000ML 1,000 ML IV ONE ×2 (21:25→23:38)
[2021-09-22] MEDS ORDERED: VANCOMYCIN CONSULT ACTIVE PRN (21:34)
[2021-09-22] MEDS ORDERED: VANCOMYCIN HCL 2,500 MG in SODIUM CHLORIDE 0.9% 500 ML IV ONE (21:34)
[2021-09-22] MEDS ORDERED: CEFEPIME 2,000 MG/20 ML VIAL IV STA (21:34)
--- NOTE | 2021-09-22 21:37 | Emergency Department Note ---
Impression & Plan Sepsis, Presence of biventricular implantable cardioverter-defibrillator (ICD), Fever, Pneumonia ED Provider Note NAME: VINCE MAGALLANES AGE: 61 SEX: M : 1960 ARRIVES VIA: Walk-In INFORMANT: Patient ED PROVIDER(S): Reese Rivero DO CHIEF COMPLAINT: fevers HPI: Patient is a 61-year-old male who presents to the ER for fevers. Patient had exchange of his pacemaker about 5 days ago. He came back the next day was seen in the ER and had blood cultures and blood work done as he was having fevers. This resolved. He had MSSA grow out in 1 blood culture. Patient denies any headache or change in vision. He denies any runny nose or sore throat. He admits to a cough which has been present for several months and unchanged. No chest pain or shortness of breath. No belly pain but does admit to one episode of vomiting. No dysuria urgency or frequency. He denies any drainage from the pacemaker. He returns as today he started having fevers and had diffuse myalgias arthralgias. ROS: See above HPI for pertinent positives & negatives. A total of 10 systems reviewed and were otherwise negative. PAST MEDICAL HISTORY:See Below PAST SURGICAL HISTORY:See Below FAMILY HISTORY:See Below SOCIAL HISTORY:See Below HOME MEDICATIONS:See Below ALLERGIES:See Below VITALS:See Below PHYSICAL EXAMINATION: GENERAL: Sitting up in bed, alert, disheveled, persistent cough EYE EXAM: normal conjunctiva. PERRL and EOM's grossly intact. CHEST: Pacemaker in left upper chest wall overlying skin is clean and dry. Dermabond still in place. No redness. OROPHARYNX: no exudate, no erythema, lips, buccal mucosa, and tongue normal and mucous membranes are moist NECK: supple, no nuchal rigidity, no adenopathy, non-tender LUNGS: Clear to auscultation. Normal chest wall mechanics HEART: Tachycardic, S1 normal and S2 normal ABDOMEN: abdomen soft, non-tender, normo-active bowel sounds, no masses, no rebound or guarding. UPPER EXTREMITIES: upper extremities are grossly normal. LOWER EXTREMITIES: No pitting edema. NEURO EXAM: Normal sensorium, cranial nerves II-XII grossly intact, normal speech, no gross weakness of arms, no gross weakness of legs. MEDICAL DECISION MAKING: Patient is a 61-year-old male who presents ER for above-stated complaint. Upon arrival he has been to be febrile and tachycardic. Recent blood culture with MS SA status post exchange of his pacemaker. IVs were established blood work was obtained. Labs show leukocytosis of 15,000. Anemia at 9.6. INR 1.2. BMP with a mild hyponatremia 134 and a creatinine 1.4. Troponin was elevated 0.07 and has previously been elevated. Pro-Adama was elevated at 1.89. UA was slightly contaminated but no signs of infection. Patient was covered with IV vancomycin and cefepime. He was given 2 L of IV fluids. He was updated bedside. Discussed with hospitalist for further evaluation. CT abdomen pelvis is unremarkable but did show pulmonary infiltrate. Triage Nursing notes reviewed. Limited review of prior medical records performed Vital Signs: reviewed and remarkable for febrile and tachycardic Differential diagnosis: Differential diagnosis includes etiologies such as sepsis, UTI, pneumonia, metabolic, electrolyte abnormalities, cardiac sources, intracerebral event, toxicologic, neurological, as well as others were entertained. ER treatment provided: See below Diagnostics interpreted by me: ECG: Atrial sensed ventricular paced rate of 119 Left axis PVCs QTC 478 Cardiac Monitoring: An order was placed for continuous cardiac monitoring. The monitor shows a rate of 120 with paced rhythm. Laboratory studies: As stated above and show below. Imaging studies: CT head and pelvis as discussed above Portable AP upright 1 view of the chest showed some cephalization bilaterally Consultation(s): Discussed with Dr. Angus Colón for further evaluation admission Procedures: none Critical Care: I have personally spent 32 minutes of critical care time in the direct managemen t of this patient. This includes bedside care, interpretation of diagnostic studies, and testing, discussion with consultants, patient, and family members, and other required patient management activities. This 32 minutes is in excess of all separately billable procedures. Past Med/Surg History Medical History (Updated 09/22/21 @ 23:38 by Reese Rivero DO) Anemia Atrial fibrillation on warfarin, follows with Dr. Forbes Cardiomyopathy CHF (congestive heart failure) acute on chronic heart failure (12/2019 [facility] admission) "clinically improved" with brisk diuresis Diabetes mellitus, type 2 Diabetic neuropathy Dyslipidemia Hyperlipidemia Hypertension ICD (implantable cardioverter-defibrillator) in place meditronic placed 07/2019 Obesity Renal insufficiency Splenic infarct Surgical History (Updated 09/22/21 @ 23:38 by Reese Rivero DO) History of cardiac cath [address] [facility], no stents History of colonoscopy History of esophagogastroduodenoscopy (EGD) last done 01/15/2020 History of repair of left rotator cuff Presence of biventricular implantable cardioverter-defibrillator (ICD) Status post amputation of toe of left foot Status post amputation of toe of right foot [place] teeth extracted Family History Father Heart disease Other No family history of adverse response to anesthesia Social History Smoking Status: Never smoker Second Hand Exposure: No; Hx Alcohol Use: No Hx Substance Use: No Preferred Language: Frisian Communication Ability: Effective Psychiatry Resident Required: No Beliefs That Will Affect Care: None marital status: Single Current Living Situation: Alone Other Information That Helps Us Care for You: No Feels Safe at Home: Yes Safety Concerns: Feels Safe At This Time Assistive Devices: Glasses Allergies Allergies Allergy/AdvReac Type Severity Reaction Status Date / Time No Known Allergies Allergy Verified 09/22/21 22:30 Home Meds Home Medications Medication Instructions Recorded Confirmed atorvastatin 80 mg tablet 80 mg PO QAM 11/26/19 09/22/21 [id number] acid 400 1 tab PO QAM 11/26/19 09/22/21 mcg-vit K 20 mcg-lycop 300 mcg tablet (Men's Multivitamin) nitroglycerin 0.4 mg sublingual 0.4 mg SUBLINGUAL UD PRN 11/26/19 09/22/21 tablet (Nitrostat) ferrous sulfate 325 mg (65 mg 325 mg PO BID 01/11/20 09/22/21 iron) tablet (Iron (ferrous sulfate)) furosemide 80 mg tablet 80 mg PO QAM 05/01/20 09/22/21 isosorbide dinitrate 20 mg tablet 20 mg PO TID 05/01/20 09/22/21 metoprolol succinate 100 mg 150 mg PO BID 05/01/20 09/22/21 tablet,extended release 24 hr pantoprazole 40 mg tablet,delayed 40 mg PO BID 05/01/20 09/22/21 release tamsulosin 0.4 mg capsule 0.4 mg PO HS 05/01/20 09/22/21 warfarin 4 mg tablet 4 - 6 mg PO UD 05/01/20 09/22/21 albuterol sulfate 90 mcg/actuation 2 puff INHALATION Q4 PRN 09/22/21 09/22/21 aerosol inhaler (Ventolin HFA) benzonatate 100 mg capsule 100 mg PO TID PRN 09/22/21 09/22/21 dulaglutide 4.5 mg/0.5 mL 4.5 mg SUBCUT WK 09/22/21 09/22/21 subcutaneous pen injector (Trulicity) ezetimibe 10 mg tablet 10 mg PO DAILY 09/22/21 09/22/21 fluticasone furoate 200 1 ea INHALATION QAM 09/22/21 09/22/21 mcg-vilanterol 25 mcg/dose inhalation powder (Breo Ellipta) insulin glargine 100 unit/mL (3 36 unit SUBCUT HS 09/22/21 09/22/21 mL) subcutaneous pen (Basaglar KwikPen U-100 Insulin) metformin 500 mg tablet 500 mg PO BID 09/22/21 09/22/21 sacubitril 24 mg-valsartan 26 mg 1 tab PO BID 09/22/21 09/22/21 tablet (Entresto) Results & Data (ED) Vital Signs Vital Signs - 24 hr 09/22/21 21:16 09/22/21 21:37 09/22/21 22:10 Temperature 38.6 C H Temperature Source Temporal Artery Scan Pulse Rate 118 H Pulse Rate [Apical] 120 H Respiratory Rate 18 19 Respiratory Effort / Characteristics Non-Labored Spontaneous Non-Labored Non-Labored Respiratory Depth Normal Respiratory Pattern Regular Blood Pressure 156/81 H Blood Pressure [Left Arm] 156/89 H Blood Pressure Mean 106 Blood Pressure Mean [Left Arm] 111 Blood Pressure Position Sitting Pulse Oximetry 100 98 90 Oxygen Delivery Method Room Air Room Air Room Air Oxygen Flow Rate Sepsis Recent Fever Within 48 Hours No Sepsis New/Unexplained Change in Mental Status No Sepsis Action Taken by Nursing No Action Required 09/22/21 22:56 09/22/21 23:06 Temperature Temperature Source Pulse Rate 121 H Pulse Rate [Apical] 120 H Respiratory Rate 22 Respiratory Effort / Characteristics Respiratory Depth Respiratory Pattern Blood Pressure 135/78 Blood Pressure [Left Arm] 168/92 H Blood Pressure Mean Blood Pressure Mean [Left Arm] 117 Blood Pressure Position Pulse Oximetry 94 Oxygen Delivery Method Room Air Oxygen Flow Rate 2 Sepsis Recent Fever Within 48 Hours Sepsis New/Unexplained Change in Mental Status Sepsis Action Taken by Nursing Laboratory Data Result diagrams: 09/22/21 21:42 09/22/21 22:31 Lab Results 09/22/21 09/22/21 09/22/21 Range/Units 20:10 20:10 21:42 WBC 15.88 H (4.8-10.8) K/uL RBC 3.62 L (4.7-6.1) M/uL Hgb 9.6 L (14.0-18.0) g/dL Hct 30.3 L (42-52) % MCV 83.7 (80-100) fL MCH 26.5 (25-34) pg MCHC 31.7 L (32-36) g/dL RDW Std Deviation 47.9 H (36.4-46.3) fL RDW Coeff of Cristela 15.7 H (11.5-14.5) % Plt Count 295 (130-400) K/uL MPV 9.0 (7.4-10.4) fL Immature Gran % (Auto) 1.1 % Neut % (Auto) 91.7 % Lymph % (Auto) 3.5 % Wood % (Auto) 2.8 % Eos % (Auto) 0.8 % Baso % (Auto) 0.1 % Neut # (Auto) 14.56 H (1.4-6.5) K/uL Lymph # (Auto) 0.56 L (1.2-3.4) K/uL Wood # (Auto) 0.45 (0.11-0.59) K/uL Eos # (Auto) 0.12 (0-0.5) K/uL Baso # (Auto) 0.02 (0-0.2) K/uL Immature Gran # (Auto) 0.17 H (0.00-0.02) K/uL PT (9.0-12.0) Seconds INR (0.9-1.1) APTT (21.0-31.0) Seconds PTT Ratio Sodium (136-145) mmol/L Potassium (3.5-5.1) mmol/L Chloride (98-107) mmol/L Carbon Dioxide (21-32) mmol/L Anion Gap (3-11) BUN (6-23) mg/dl Creatinine (0.6-1.4) mg/dl Est Cr Clr Drug Dosing ml/min Est GFR ( Amer) ml/min Est GFR (Non-Af Amer) ml/min BUN/Creatinine Ratio (10-20) Glucose (70-99(Fasting)) mg/dl Lactate (0.4-2.0) mmol/L Calcium (8.5-10.1) mg/dl Magnesium (1.7-2.4) mg/dl Total Bilirubin (0.2-1.0) mg/dl AST (13-39) U/L ALT (7-52) U/L Alkaline Phosphatase (34-104) U/L Troponin I (0-0.04) ng/ml Total Protein (6.0-8.3) gm/dl Albumin (3.4-5.0) gm/dl Globulin (2.5-4.0) gm/dl Albumin/Globulin Ratio (0.9-2) Procalcitonin (0-0.5) ng/ml Urine Color Urine Appearance (Clear) Urine pH (4.5-7.5) Ur Specific [place] (1.000-1.030) Urine Protein (Negative) Urine Glucose (UA) (Negative) Urine Ketones (Negative) Urine Blood (Negative) Urine Nitrite (Negative) Urine Bilirubin (Negative) Urine Urobilinogen (Negative) Ur Leukocyte Esterase (Negative) Urine WBC (Auto) (0-5) /hpf Urine RBC (Auto) (0-4) /hpf U Hyaline Cast (Auto) (0-5) /lpf U Epithel Cells (Auto) (0-5) /lpf Urine Bacteria (Auto) (Negative) Urine Sperm (None Prsent) Influ A Molecular Assay Negative (Negative) Influ B Molecular Assay Negative (Negative) SARS-CoV-2, RNA, NAAT NEGATIVE (NEGATIVE) 09/22/21 09/22/21 09/22/21 Range/Units 21:42 21:42 21:42 WBC (4.8-10.8) K/uL RBC (4.7-6.1) M/uL Hgb (14.0-18.0) g/dL Hct (42-52) % MCV (80-100) fL MCH (25-34) pg MCHC (32-36) g/dL RDW Std Deviation (36.4-46.3) fL RDW Coeff of Cristela (11.5-14.5) % Plt Count (130-400) K/uL MPV (7.4-10.4) fL Immature Gran % (Auto) % Neut % (Auto) % Lymph % (Auto) % Wood % (Auto) % Eos % (Auto) % Baso % (Auto) % Neut # (Auto) (1.4-6.5) K/uL Lymph # (Auto) (1.2-3.4) K/uL Wood # (Auto) (0.11-0.59) K/uL Eos # (Auto) (0-0.5) K/uL Baso # (Auto) (0-0.2) K/uL Immature Gran # (Auto) (0.00-0.02) K/uL PT 12.3 H (9.0-12.0) Seconds INR 1.2 H (0.9-1.1) APTT 26.0 (21.0-31.0) Seconds PTT Ratio 0.9 Sodium 134 L (136-145) mmol/L Potassium (3.5-5.1) mmol/L Chloride 105 (98-107) mmol/L Carbon Dioxide 20 L (21-32) mmol/L Anion Gap 9 (3-11) BUN 39 H (6-23) mg/dl Creatinine 1.45 H (0.6-1.4) mg/dl Est Cr Clr Drug Dosing 74.6 ml/min Est GFR ( Amer) 60.7 ml/min Est GFR (Non-Af Amer) 52.3 ml/min BUN/Creatinine Ratio 26.9 H (10-20) Glucose 208 H (70-99(Fasting)) mg/dl Lactate (0.4-2.0) mmol/L Calcium 8.6 (8.5-10.1) mg/dl Magnesium 1.3 L (1.7-2.4) mg/dl Total Bilirubin 0.6 (0.2-1.0) mg/dl AST (13-39) U/L ALT 36 (7-52) U/L Alkaline Phosphatase 108 H (34-104) U/L Troponin I 0.07 H* (0-0.04) ng/ml Total Protein 7.0 (6.0-8.3) gm/dl Albumin 3.3 L (3.4-5.0) gm/dl Globulin 3.7 (2.5-4.0) gm/dl Albumin/Globulin Ratio 0.9 (0.9-2) Procalcitonin 1.89 H (0-0.5) ng/ml Urine Color Urine Appearance (Clear) Urine pH (4.5-7.5) Ur Specific [place] (1.000-1.030) Urine Protein (Negative) Urine Glucose (UA) (Negative) Urine Ketones (Negative) Urine Blood (Negative) Urine Nitrite (Negative) Urine Bilirubin (Negative) Urine Urobilinogen (Negative) Ur Leukocyte Esterase (Negative) Urine WBC (Auto) (0-5) /hpf Urine RBC (Auto) (0-4) /hpf U Hyaline Cast (Auto) (0-5) /lpf U Epithel Cells (Auto) (0-5) /lpf Urine Bacteria (Auto) (Negative) Urine Sperm (None Prsent) Influ A Molecular Assay (Negative) Influ B Molecular Assay (Negative) SARS-CoV-2, RNA, NAAT (NEGATIVE) 09/22/21 09/22/21 09/22/21 Range/Units 22:10 22:31 22:32 WBC (4.8-10.8) K/uL RBC (4.7-6.1) M/uL Hgb (14.0-18.0) g/dL Hct (42-52) % MCV (80-100) fL MCH (25-34) pg MCHC (32-36) g/dL RDW Std Deviation (36.4-46.3) fL RDW Coeff of Cristela (11.5-14.5) % Plt Count (130-400) K/uL MPV (7.4-10.4) fL Immature Gran % (Auto) % Neut % (Auto) % Lymph % (Auto) % Wood % (Auto) % Eos % (Auto) % Baso % (Auto) % Neut # (Auto) (1.4-6.5) K/uL Lymph # (Auto) (1.2-3.4) K/uL Wood # (Auto) (0.11-0.59) K/uL Eos # (Auto) (0-0.5) K/uL Baso # (Auto) (0-0.2) K/uL Immature Gran # (Auto) (0.00-0.02) K/uL PT (9.0-12.0) Seconds INR (0.9-1.1) APTT (21.0-31.0) Seconds PTT Ratio Sodium (136-145) mmol/L Potassium 4.2 (3.5-5.1) mmol/L Chloride (98-107) mmol/L Carbon Dioxide (21-32) mmol/L Anion Gap (3-11) BUN (6-23) mg/dl Creatinine (0.6-1.4) mg/dl Est Cr Clr Drug Dosing ml/min Est GFR ( Amer) ml/min Est GFR (Non-Af Amer) ml/min BUN/Creatinine Ratio (10-20) Glucose (70-99(Fasting)) mg/dl Lactate 1.2 (0.4-2.0) mmol/L Calcium (8.5-10.1) mg/dl Magnesium (1.7-2.4) mg/dl Total Bilirubin (0.2-1.0) mg/dl AST 19 (13-39) U/L ALT (7-52) U/L Alkaline Phosphatase (34-104) U/L Troponin I 0.07 H* (0-0.04) ng/ml Total Protein (6.0-8.3) gm/dl Albumin (3.4-5.0) gm/dl Globulin (2.5-4.0) gm/dl Albumin/Globulin Ratio (0.9-2) Procalcitonin (0-0.5) ng/ml Urine Color Yellow Urine Appearance Clear (Clear) Urine pH 5.0 (4.5-7.5) Ur Specific [place] 1.015 (1.000-1.030) Urine Protein 2+ H (Negative) Urine Glucose (UA) Negative (Negative) Urine Ketones Negative (Negative) Urine Blood Trace H (Negative) Urine Nitrite Negative (Negative) Urine Bilirubin Negative (Negative) Urine Urobilinogen Negative (Negative) Ur Leukocyte Esterase Negative (Negative) Urine WBC (Auto) 1-5 (0-5) /hpf Urine RBC (Auto) 0-4 (0-4) /hpf U Hyaline Cast (Auto) 5-10 H (0-5) /lpf U Epithel Cells (Auto) 10-20 H (0-5) /lpf Urine Bacteria (Auto) Negative (Negative) Urine Sperm Present A (None Prsent) Influ A Molecular Assay (Negative) Influ B Molecular Assay (Negative) SARS-CoV-2, RNA, NAAT (NEGATIVE) Administered Medications Vancomycin HCl 2,500 mg/ (Sodium Chloride) 550 mls @ 200 mls/hr IV NOW ONE Stop: 09/23/21 00:18 Last Admin: 09/22/21 22:31 Dose: 200 mls/hr Documented by: [id number] Magnesium Sulfate/Dextrose (Magnesium Sulfate / D5w) 1 gm in 100 mls @ 50 mls/hr IV Q2H YULI Stop: 09/23/21 04:29 Last Admin: 09/22/21 22:56 Dose: 50 mls/hr Documented by: [id number] Discontinued Medications Acetaminophen (Acetaminophen 325 Mg Tab) 650 mg PO NOW STA Stop: 09/22/21 21:26 Last Admin: 09/22/21 22:31 Dose: 650 mg Documented by: [id number] Sodium Chloride (Nss 1000ml) 1,000 mls @ 999 mls/hr IV .Q1H1M ONE Stop: 09/22/21 22:25 Last Infusion: 09/22/21 23:13 Dose: 0 mls/hr Documented by: [id number] Admin: 09/22/21 22:16 Dose: 999 mls/hr Documented by: [id number] Cefepime HCl (Maxipime) 2,000 mg in 20 mls @ 5 mls/min IV NOW STA; Protocol Stop: 09/22/21 21:37 Last Admin: 09/22/21 22:31 Dose: 5 mls/min Documented by: [id number] Metoprolol Tartrate (Metoprolol Tartrate 1 Mg/Ml Vial) 2.5 mg IV NOW STA; Protocol Stop: 09/22/21 22:34 Last Admin: 09/22/21 22:56 Dose: 2.5 mg Documented by: [id number] Discharge Plan Visit Data Chief Complaint: Fever Stated Complaint: FEVER, CHILLS, NAUSEA ED Provider: Reese Rivero Discharge Problem: Sepsis, Presence of biventricular implantable cardioverter-defibrillator (ICD), Fever, Pneumonia Forms Stand Alone Forms: [facility] Prescriptions Prescriptions: No Action atorvastatin 80 mg tablet 80 mg PO QAM RF: 0 nitroglycerin [Nitrostat] 0.4 mg Tablet, Sublingual 0.4 mg sublingual UD PRN (Reason: Chest Pain) RF: 0 Men's Multivitamin 400-20-300 mcg Tablet 1 tab PO QAM RF: 0 ferrous sulfate [Iron (ferrous sulfate)] 325 mg (65 mg iron) Tablet 325 mg PO BID RF: 0 metoprolol succinate 100 mg Tablet Extended Release 24 Hr 150 mg PO BID RF: 0 warfarin 4 mg Tablet 4 - 6 mg PO UD RF: 0 tamsulosin 0.4 mg Capsule 0.4 mg PO HS RF: 0 furosemide 80 mg Tablet 80 mg PO QAM RF: 0 pantoprazole 40 mg Tablet,Delayed Release (Dr/Ec) 40 mg PO BID RF: 0 isosorbide dinitrate 20 mg Tablet 20 mg PO TID RF: 0 metformin 500 mg tablet 500 mg PO BID RF: 0 Breo Ellipta 200-25 mcg/dose blister with device 1 ea INHALATION QAM RF: 0 albuterol sulfate [Ventolin HFA] 90 mcg/actuation HFA aerosol inhaler 2 puff INHALATION Q4 PRN (Reason: cough,sob,wheeze) RF: 0 benzonatate 100 mg capsule 100 mg PO TID PRN (Reason: Cough) RF: 0 Basaglar KwikPen U-100 Insulin 100 unit/mL (3 mL) insulin pen 36 unit SUBCUT HS RF: 0 Entresto 24-26 mg tablet 1 tab PO BID RF: 0 Trulicity 4.5 mg/0.5 mL pen injector 4.5 mg SUBCUT WK RF: 0 ezetimibe 10 mg tablet 10 mg PO DAILY RF: 0 Referrals Referrals: Beverly Spangler DO [Primary Care Provider] - Discharge Problem: Sepsis Qualifiers: Sepsis type: sepsis due to unspecified organism Sepsis acute organ dysfunction status: unspecified Qualified Code(s): A41.9 - Sepsis, unspecified organism Fever Qualifiers: Fever type: unspecified Qualified Code(s): R50.9 - Fever, unspecified Pneumonia Qualifiers: Pneumonia type: due to unspecified organism Laterality: unspecified laterality Lung location: unspecified part of lung Qualified Code(s): J18.9 - Pneumonia, unspecified organism
[2021-09-22 21:50] LABS: Basophils # (auto) 0.02 K/uL (0-0.2); Basophils % (auto) 0.1 %; Eosinophils # (auto) 0.12 K/uL (0-0.5); Eosinophils % (auto) 0.8 %; Hematocrit (blood only) 30.3 % (42-52); Hemoglobin 9.6 g/dL (14.0-18.0); Immature Granulocytes # (auto) 0.17 K/uL (0.00-0.02); Immature Granulocytes % (auto) 1.1 %; Lymphocytes # (auto) 0.56 K/uL (1.2-3.4); Lymphocytes % (auto) 3.5 %; Mean Corpuscular Hemoglobin 26.5 pg (25-34); Mean Corpuscular Hgb Conc 31.7 g/dL (32-36); Mean Corpuscular Volume 83.7 fL (80-100); Monocytes # (auto) 0.45 K/uL (0.11-0.59); Monocytes % (auto) 2.8 %; Neutrophils # (auto) 14.56 K/uL (1.4-6.5); Neutrophils % (auto) 91.7 %; Platelet Count 295 K/uL (130-400); RDW Coefficient of Variation 15.7 % (11.5-14.5); RDW Standard Deviation 47.9 fL (36.4-46.3); Red Blood Count 3.62 M/uL (4.7-6.1); White Blood Count 15.88 K/uL (4.8-10.8)
[2021-09-22 22:06] LABS: INR 1.2 (0.9-1.1); Partial Thromboplastin Ratio 0.9; Prothrombin Time 12.3 Seconds (9.0-12.0)
[2021-09-22 22:19] LABS: Troponin I 0.07 ng/ml (0-0.04)
[2021-09-22 22:24] LABS: Albumin Globulin Ratio 0.9 (0.9-2); Albumin Level 3.3 gm/dl (3.4-5.0); BUN Creatinine Ratio 26.9 (10-20); Bilirubin,Total 0.6 mg/dl (0.2-1.0); Calcium 8.6 mg/dl (8.5-10.1); Creatinine Clr Calc Pharmacy 74.6 ml/min; Est GFR (African American) 60.7 ml/min; Est GFR (Non-African American) 52.3 ml/min; Globulin 3.7 gm/dl (2.5-4.0); Magnesium 1.3 mg/dl (1.7-2.4)
[2021-09-22] MEDS ORDERED: METOPROLOL TARTRATE 1 MG/ML VIAL IV STA (22:33)
[2021-09-22 22:37] LABS: Appearance Urine Clear (Clear); Bacteria Urine Automated Negative (Negative); Bilirubin Urine Negative (Negative); Blood Urine Trace (Negative); Color Urine Yellow; Glucose Urine UA Negative (Negative); Ketones Urine Negative (Negative); Leukocyte Esterase Urine Negative (Negative); Nitrite Urine Negative (Negative); Protein Urine 2+ (Negative); RBC Urine Automated 0-4 /hpf (0-4); Specific Gravity Urine 1.015 (1.000-1.030); Urobilinogen Urine Negative (Negative)
[2021-09-22 22:38] LABS: Influenza A virus by PCR Negative (Negative); Influenza B virus by PCR Negative (Negative)
[2021-09-22 22:45] LABS: Sperm Urine Present (None Prsent)
[2021-09-22] MEDS: MAGNESIUM SULFATE / D5W 1 GM/100 ML BAG IV SCH (22:56)
[2021-09-22 23:11] LABS: Potassium 4.2 mmol/L (3.5-5.1)
[2021-09-22] MEDS ORDERED: PROMETHAZINE 12.5 MG/50.5 ML BAG IV STA (23:25)
[2021-09-22 23:26] LABS: Troponin I 0.07 ng/ml (0-0.04)
[2021-09-23] MEDS ORDERED: PIPERACILL/TAZOBAC CONSULT ACTIVE PRN (00:16)
[2021-09-23] MEDS ORDERED: WARFARIN SOD 6 MG TAB PO STA (00:19)
[2021-09-23] MEDS ORDERED: XOPENEX/ATROVENT 1.25mg/0.5MG NEB COMBO NEB STA (00:21)
[2021-09-23] MEDS ORDERED: LEVALBUTEROL 1.25MG/0.5ML NEB INH STA (00:21)
--- NOTE | 2021-09-23 00:22 | History & Physical Report ---
Date of Service September 23, 2021 Assessment & Plan (1) Sepsis: Plan: SIRS Secondary to HCAP Recent outpatient bronchoscopy for left lung mass Possible aspiration Troponin elevation secondary to above chronic systolic heart failure secondary to nonischemic cardiomyopathy (EF 30%, TTE 2021) status post biventricular ICD/PPM, patient on the dry side PAF on Coumadin, paced rhythm, INR subtherapeutic secondary to Coumadin being held from recent bronchoscopy chronic LBBB hx nonobstructive CAD hypertension, elevated secondary to illness hyperlipidemia on statin Rx DM2 insulin requiring, well-controlled as of recent hemoglobin A1c of 16 April 2021 CRI, creatinine better than baseline chronic anemia, hemoglobin at baseline Medical telemetry CS, Doxycycline, Zosyn Aspiration precautions Follow troponin Basal insulin, ISS BG goal 1 10-1 40, carb count coverage, update hemoglobin A1c DVT prophylaxis. Coumadin INR goal between 2 and 3 Full code Text document was generated using [employer] voice recognition software. It may contain grammatical or spelling errors. Kindly contact undersigned for clarification of any documentation item in question. History of Present Illness Chief Complaint: Cough, worsening shortness of breath, fever Primary Care Provider: Beverly Spangler DO History obtained from patient and records. Medical history significant for chronic systolic heart failure secondary to nonischemic cardiomyopathy (EF 30%, TTE 2021) status post biventricular ICD/PPM, PAF on Coumadin, chronic LBBB, nonobstructive CAD, hypertension, hyperlipidemia, Left lung mass, ZOFIA on CPAP, DM2 insulin requiring, CRI (baseline creatinine 1.8 ), chronic anemia (baseline hemoglobin 8-9). Last confinement December 2019 for septic shock secondary to MSSA bacteremia secondary to left foot toe nonhealing wound/osteomyelitis. Patient discharged on cefazolin course. Last week, patient underwent EPS procedure for pacemaker lead malfunction at [facility] under sedation. Patient seen at the ER the day following procedure for fever and body aches. Patient completed COVID-19 vaccination. Blood CS drawn. Patient subsequently sent home. Blood CS subsequently grew MSSA on 1 bottle. Findings communicated to patient's international student counselor. Repeat blood cultures recommended. Outpatient patient staff had trouble reaching patient to relay recommendations as per outpatient notes. Patient underwent elective bronchoscopy at [facility] 2 days ago for left lung mass found on outpatient CT chest 2 months ago. Yesterday, patient noted worsening fever, chills, body aches now associated with dry cough and shortness of breath. No unusual fluid retention. Abdominal discomfort causing emesis worsening cough symptoms. No actual chest pain. Headache from coughing. Patient directed to ER by outpatient providers for further evaluation and to comply with repeat blood cultures recommended by his international student counselor. Vancomycin and cefepime administered at the ER for sepsis. 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 Allergies Allergy/AdvReac Type Severity Reaction Status Date / Time No Known Allergies Allergy Verified 09/22/21 22:30 Home Medications Medication Instructions Recorded Confirmed Type atorvastatin 80 mg tablet 80 mg PO QAM 11/26/19 09/22/21 History lpstrqek-tarjpeig-jlmgl acid 400 1 tab PO QAM 11/26/19 09/22/21 History mcg-vit K 20 mcg-lycop 300 mcg tablet (Men's Multivitamin) nitroglycerin 0.4 mg sublingual 0.4 mg SUBLINGUAL UD PRN 11/26/19 09/22/21 History tablet (Nitrostat) ferrous sulfate 325 mg (65 mg 325 mg PO BID 01/11/20 09/22/21 History iron) tablet (Iron (ferrous sulfate)) furosemide 80 mg tablet 80 mg PO QAM 05/01/20 09/22/21 History isosorbide dinitrate 20 mg tablet 20 mg PO TID 05/01/20 09/22/21 History metoprolol succinate 100 mg 150 mg PO BID 05/01/20 09/22/21 History tablet,extended release 24 hr pantoprazole 40 mg tablet,delayed 40 mg PO BID 05/01/20 09/22/21 History release tamsulosin 0.4 mg capsule 0.4 mg PO HS 05/01/20 09/22/21 History warfarin 4 mg tablet 4 - 6 mg PO UD 05/01/20 09/22/21 History albuterol sulfate 90 mcg/actuation 2 puff INHALATION Q4 PRN 09/22/21 09/22/21 History aerosol inhaler (Ventolin HFA) benzonatate 100 mg capsule 100 mg PO TID PRN 09/22/21 09/22/21 History dulaglutide 4.5 mg/0.5 mL 4.5 mg SUBCUT WK 09/22/21 09/22/21 History subcutaneous pen injector (Trulicity) ezetimibe 10 mg tablet 10 mg PO DAILY 09/22/21 09/22/21 History fluticasone furoate 200 1 ea INHALATION QAM 09/22/21 09/22/21 History mcg-vilanterol 25 mcg/dose inhalation powder (Breo Ellipta) insulin glargine 100 unit/mL (3 36 unit SUBCUT HS 09/22/21 09/22/21 History mL) subcutaneous pen (Basaglar KwikPen U-100 Insulin) metformin 500 mg tablet 500 mg PO BID 09/22/21 09/22/21 History sacubitril 24 mg-valsartan 26 mg 1 tab PO BID 09/22/21 09/22/21 History tablet (Entresto) Past Med/Surg History Medical History (Updated 09/23/21 @ 03:43 by Ronnie Trivedi MD) Anemia Atrial fibrillation on warfarin, follows with Dr. Forbes Cardiomyopathy CHF (congestive heart failure) acute on chronic heart failure (12/2019 [facility] admission) "clinically improved" with brisk diuresis Diabetes mellitus, type 2 Diabetic neuropathy Dyslipidemia Hyperlipidemia Hypertension ICD (implantable cardioverter-defibrillator) in place meditronic placed 07/2019 Obesity Renal insufficiency Splenic infarct Surgical History (Updated 09/22/21 @ 23:38 by Reese Rivero DO) History of cardiac cath 2018 @ [facility], no stents History of colonoscopy History of esophagogastroduodenoscopy (EGD) last done 01/15/2020 History of repair of left rotator cuff Presence of biventricular implantable cardioverter-defibrillator (ICD) Status post amputation of toe of left foot Status post amputation of toe of right foot [place] teeth extracted Family History Father Heart disease Other No family history of adverse response to anesthesia Social History Smoking Status: Never smoker Second Hand Exposure: No; Hx Alcohol Use: No Hx Substance Use: No Preferred Language: Ukrainian Communication Ability: Effective 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: No Beliefs That Will Affect Care: None marital status: Single Current Living Situation: Alone Other Information That Helps Us Care for You: No Feels Safe at Home: Yes Safety Concerns: Feels Safe At This Time Assistive Devices: None Review of Systems Review of Systems: As per HPI, all 10 systems reviewed, all other ROS negative Physical Exam Physical Exam: GENERAL: Slightly uncomfortable, obese, no respiratory distress SKIN: Pallor, warm HEENT: Bespectacled, pale palpebral conjunctivae, no ptosis, dry buccal mucosa NECK : Supple, short neck, no tenderness CHEST : Decreased breath sounds, occasional expiratory wheezes, no tenderness HEART : Tachycardic, no obvious murmurs ABDOMEN: Some distention, nontender EXTREMITIES : Minimal LE swelling, no LE tenderness, no other conspicuous deformities noted NEUROLOGIC : Coherent, no facial asymmetry, no other gross focality Results & Data Results & Data ([facility]) Vital Signs (Past 12 Hours) Vital Signs Temp Pulse Pulse Resp BP BP Pulse Ox 09/23/21 00:00 116 H 32 H 137/72 94 09/22/21 23:06 120 H 22 168/92 H 94 09/22/21 22:56 121 H 135/78 09/22/21 22:10 120 H 19 156/89 H 90 09/22/21 21:37 98 09/22/21 21:16 38.6 C H 118 H 18 156/81 H 100 Laboratory Results Laboratory Results WBC 15.88 K/uL (4.8-10.8) H 09/22/21 21:42 RBC 3.62 M/uL (4.7-6.1) L 09/22/21 21:42 Hgb 9.6 g/dL (14.0-18.0) L 09/22/21 21:42 Hct 30.3 % (42-52) L 09/22/21 21:42 MCV 83.7 fL (80-100) 09/22/21 21:42 MCH 26.5 pg (25-34) 09/22/21 21:42 MCHC 31.7 g/dL (32-36) L 09/22/21 21:42 RDW Std Deviation 47.9 fL (36.4-46.3) H 09/22/21 21:42 RDW Coeff of Cristela 15.7 % (11.5-14.5) H 09/22/21 21:42 Plt Count 295 K/uL (130-400) 09/22/21 21:42 MPV 9.0 fL (7.4-10.4) 09/22/21 21:42 Immature Gran % (Auto) 1.1 % 09/22/21 21: Neut % (Auto) 91.7 % 09/22/21 21:42 Lymph % (Auto) 3.5 % 09/22/21 21: [place] % (Auto) 2.8 % 09/22/21 21: Eos % (Auto) 0.8 % 09/22/21 21: Baso % (Auto) 0.1 % 09/22/21 21: Neut # (Auto) 14.56 K/uL (1.4-6.5) H 09/22/21 21: Lymph # (Auto) 0.56 K/uL (1.2-3.4) L 09/22/21 21:42 [place] # (Auto) 0.45 K/uL (0.11-0.59) 09/22/21 21: Eos # (Auto) 0.12 K/uL (0-0.5) 09/22/21 21: Baso # (Auto) 0.02 K/uL (0-0.2) 09/22/21 21: Immature Gran # (Auto) 0.17 K/uL (0.00-0.02) H 09/22/21 21:42 PT 12.3 Seconds (9.0-12.0) H 09/22/21 21:42 INR 1.2 (0.9-1.1) H 09/22/21 21:42 APTT 26.0 Seconds (21.0-31.0) 09/22/21 21:42 PTT Ratio 0.9 09/22/21 21:42 Sodium 134 mmol/L (136-145) L 09/22/21 21:42 Potassium 4.2 mmol/L (3.5-5.1) 09/22/21 22:31 Chloride 105 mmol/L (98-107) 09/22/21 21:42 Carbon Dioxide 20 mmol/L (21-32) L 09/22/21 21:42 Anion Gap 9 (3-11) 09/22/21 21:42 BUN 39 mg/dl (6-23) H 09/22/21 21:42 Creatinine 1.45 mg/dl (0.6-1.4) H 09/22/21 21:42 Est Cr Clr Drug Dosing 74.6 ml/min 09/22/21 21:42 Est GFR ( Amer) 60.7 ml/min 09/22/21 21:42 Est GFR (Non-Af Amer) 52.3 ml/min 09/22/21 21:42 BUN/Creatinine Ratio 26.9 (10-20) H 09/22/21 21:42 Glucose 208 mg/dl (70-99(Fasting)) H 09/22/21 21:42 Lactate 1.2 mmol/L (0.4-2.0) 09/22/21 22:32 Calcium 8.6 mg/dl (8.5-10.1) 09/22/21 21:42 Magnesium 1.3 mg/dl (1.7-2.4) L 09/22/21 21:42 Total Bilirubin 0.6 mg/dl (0.2-1.0) 09/22/21 21:42 AST 19 U/L (13-39) 09/22/21 22:31 ALT 36 U/L (7-52) 09/22/21 21:42 Alkaline Phosphatase 108 U/L (34-104) H 09/22/21 21:42 Troponin I 0.07 ng/ml (0-0.04) H* 09/22/21 22:31 Total Protein 7.0 gm/dl (6.0-8.3) 09/22/21 21:42 Albumin 3.3 gm/dl (3.4-5.0) L 09/22/21 21:42 Globulin 3.7 gm/dl (2.5-4.0) 09/22/21 21:42 Albumin/Globulin Ratio 0.9 (0.9-2) 09/22/21 21:42 Procalcitonin 1.89 ng/ml (0-0.5) H 09/22/21 21:42 Urine Color Yellow 09/22/21 22:10 Urine Appearance Clear (Clear) 09/22/21 22:10 Urine pH 5.0 (4.5-7.5) 09/22/21 22:10 Ur Specific [place] 1.015 (1.000-1.030) 09/22/21 22:10 Urine Protein 2+ (Negative) H 09/22/21 22:10 Urine Glucose (UA) Negative (Negative) 09/22/21 22:10 Urine Ketones Negative (Negative) 09/22/21 22:10 Urine Blood Trace (Negative) H 09/22/21 22:10 Urine Nitrite Negative (Negative) 09/22/21 22:10 Urine Bilirubin Negative (Negative) 09/22/21 22:10 Urine Urobilinogen Negative (Negative) 09/22/21 22:10 Ur Leukocyte Esterase Negative (Negative) 09/22/21 22:10 Urine WBC (Auto) 1-5 /hpf (0-5) 09/22/21 22:10 Urine RBC (Auto) 0-4 /hpf (0-4) 09/22/21 22:10 U Hyaline Cast (Auto) 5-10 /lpf (0-5) H 09/22/21 22:10 U Epithel Cells (Auto) 10-20 /lpf (0-5) H 09/22/21 22:10 Urine Bacteria (Auto) Negative (Negative) 09/22/21 22:10 Urine Sperm Present (None Prsent) A 09/22/21 22:10 Influ A Molecular Assay Negative (Negative) 09/22/21 20:10 Influ B Molecular Assay Negative (Negative) 09/22/21 20:10 SARS-CoV-2, RNA, NAAT NEGATIVE (NEGATIVE) 09/22/21 20:[address] abdomen pelvis initial read: Perinephric fat stranding bilaterallyis similar to the prior scan and as such favored chronic. No obstructive uropathy. Bladder is unremarkable. Cholelithiasiswithout cholecystitis. Remainder of the organs are unremarkable. Normal appendix. No acute abnormalityalong the GI tract. Fewnodular opacities at the right lung base. Airspace opacityin the left lower lobe. Metastatic disease and infection on the differential. Chest x-ray as per my interpretation: Atelectasis, cardiomegaly, elevated right hemidiaphragm, PPM/defibrillator EKG as per my interpretation : Rate 120, paced rhythm
[2021-09-23] MEDS ORDERED: DOXYCYCLINE HYCLATE 100 MG in DEXTROSE 5% 100 ML IV STA (00:42)
[2021-09-23] MEDS ORDERED: IPRATROPIUM BROMIDE NEB SOLN 0.02% 2.5 ML VIAL INH STA (00:42)
[2021-09-23] MEDS ORDERED: PIPERACILLIN/TAZOBACTAM 4.5 GM/120 ML BAG IV STA (00:44)
[2021-09-23] MEDS ORDERED: DEXTROSE 50% 50 ML SYRINGE IV PRN (01:40)
[2021-09-23] MEDS ORDERED: ACETAMINOPHEN 325 MG TAB PO PRN (01:40)
[2021-09-23] MEDS ORDERED: GLUCOSE 10 TABS/TUBE PO PRN (01:40)
[2021-09-23] MEDS ORDERED: ALBUMIN 25% 100 mL 25 GM/100 ML VIAL IV ONE (01:40)
[2021-09-23] MEDS ORDERED: GLUCOSE 40% GEL 15 GM TUBE PO PRN (01:40)
[2021-09-23] MEDS ORDERED: CARBOHYDRATES FOR HYPOGLYCEMIA PO PRN (01:40)
[2021-09-23] MEDS ORDERED: PROMETHAZINE HCL 12.5 MG in SODIUM CHLORIDE 0.9% 50 ML IV PRN (01:40)
[2021-09-23] MEDS ORDERED: NITROGLYCERIN SL 0.4 MG/TAB TAB SL PRN (01:40)
[2021-09-23] MEDS ORDERED: GLUCAGON FOR INJ 1 MG VIAL SQ PRN (01:40)
[2021-09-23] MEDS ORDERED: traMADol HCL 50 MG TABLET PO PRN (01:40)
[2021-09-23] MEDS: METOPROLOL SUCC 50MG EXT REL TAB PO SCH ×3 (01:43→20:16)
[2021-09-23] MEDS: MAGNESIUM SULFATE / D5W 1 GM/100 ML BAG IV SCH ×2 (02:00→04:00)
[2021-09-23] MEDS: INSULIN ASPART PER UNIT SC SCH ×5 (02:18→20:15)
[2021-09-23] MEDS: INSULIN GLARGINE SOLOSTAR 100 UNITS/ML 3 ML PEN SQ SCH ×2 (03:35→20:15)
[2021-09-23] MEDS: guaiFENesin 600 MG TABCR PO SCH ×3 (03:35→20:14)
[2021-09-23] MEDS: PIPERACILLIN/TAZOBACTAM 4.5 GM in DEXTROSE 5% 100 ML IV SCH ×3 (05:10→21:03)
[2021-09-23] MEDS ORDERED: Flu Vaccine (Fluarix) 0.5mL SYR (Standard Dose) IM ONE (05:30)
[2021-09-23 05:45] LABS: Hematocrit (blood only) 24.1 % (42-52); Hemoglobin 7.8 g/dL (14.0-18.0); Mean Corpuscular Hemoglobin 26.9 pg (25-34); Mean Corpuscular Hgb Conc 32.4 g/dL (32-36); Mean Corpuscular Volume 83.1 fL (80-100); Mean Platelet Volume 8.7 fL (7.4-10.4); Platelet Count 232 K/uL (130-400); RDW Coefficient of Variation 15.9 % (11.5-14.5); RDW Standard Deviation 48.2 fL (36.4-46.3); White Blood Count 19.75 K/uL (4.8-10.8)
[2021-09-23] MEDS: ISOSORBIDE DINITRATE 20 MG TAB PO SCH ×3 (06:12→17:14)
[2021-09-23 06:14] LABS: Troponin I 0.07 ng/ml (0-0.04)
[2021-09-23 06:22] LABS: INR 1.2 (0.9-1.1)
[2021-09-23 06:23] LABS: BUN Creatinine Ratio 25.5 (10-20); Calcium 7.9 mg/dl (8.5-10.1); Creatinine Clr Calc Pharmacy 69.4 ml/min; Est GFR (African American) 55.1 ml/min; Est GFR (Non-African American) 47.5 ml/min; Magnesium 1.8 mg/dl (1.7-2.4)
[2021-09-23 06:26] LABS: Basophils # (auto) 0.02 K/uL (0-0.2); Basophils % (auto) 0.1 %; Eosinophils # (auto) 0.02 K/uL (0-0.5); Eosinophils % (auto) 0.1 %; Immature Granulocytes # (auto) 0.09 K/uL (0.00-0.02); Immature Granulocytes % (auto) 0.5 %; Lymphocytes # (auto) 1.19 K/uL (1.2-3.4); Monocytes # (auto) 0.75 K/uL (0.11-0.59); Monocytes % (auto) 3.8 %; Neutrophils # (auto) 17.68 K/uL (1.4-6.5); Neutrophils % (auto) 89.5 %; RBC Morphology Unremarkable
--- NOTE | 2021-09-23 07:12 | XRay Report ---
SINGLE VIEW CHEST CLINICAL HISTORY: Sepsis. FINDINGS: An AP, portable, upright chest radiograph is compared to study dated 09/17/2021. A 3-lead ca rdiac AICD is unchanged in position and largely obscures the left mid chest. The heart is enlarged. T here is pulmonary vascular congestion. There is airspace consolidation at the left lung base. No larg e pleural effusion or pneumothorax is seen. The skeletal structures are osteopenic. The bony thorax i s grossly intact. IMPRESSION: 1. Cardiomegaly and AICD with pulmonary vascular congestion. 2. There is left basilar consolidation. This could represent atelectasis and/or pneumonia and clinica l correlation will be required. Radiographic follow-up to resolution is recommended. ACT 112: Negative or not required by law. Electronically signed by: Wallace Alexander M.D. 09/23/2021 7:11 AM
[2021-09-23] MEDS: EZETIMIBE 10 MG TABLET PO SCH (08:14)
[2021-09-23] MEDS: FERROUS SULFATE 325 MG TAB PO SCH ×2 (08:14→20:13)
[2021-09-23] MEDS: ATORVASTATIN 40 MG TAB PO SCH (08:14)
[2021-09-23] MEDS: FLUTICASONE/VILANTEROL 200/25MCG 14 PUFFS/INHALER INH SCH (08:15)
[2021-09-23] MEDS: PANTOprazole 40 MG TAB PO SCH ×2 (08:16→20:17)
[2021-09-23] MEDS: CEROVITE ADV FORMULA TAB PO SCH (08:16)
--- NOTE | 2021-09-23 08:21 | CT Scan Report ---
CT abd pelvis wo con CLINICAL HISTORY: vomiting and sepsis TECHNIQUE: Helical axial images of the abdomen and pelvis were obtained. Automated dose lowering tech niques and/or adjustment according to patient size were utilized for this exam. This exam was perfor med without intravenous contrast. COMPARISON: Comparison is made to CT abdomen pelvis 11/26/2019 FINDINGS: Lower chest: Bibasilar atelectasis versus scarring is seen. There is a 10 mm pulmonary nodule in the right lower lobe, new from prior exam (series 3 image 50). Liver: Unremarkable. No focal lesions are seen. Gallbladder and biliary tree: Cholelithiasis is seen without evidence of cholecystitis. No intra- or extrahepatic biliary ductal dilation. Pancreas: Unremarkable, no focal lesions. Spleen: Calcifications are noted in the spleen compatible with prior granulomatous disease. Adrenals: Unremarkable. Kidneys and ureters: Bilateral perinephric stranding is again seen. No evidence of obstructing stone is seen. Bladder: Limited evaluation due to underdistention. Reproductive organs: Unremarkable. Bowel: Unremarkable appearance of the bowel. The appendix is normal. Lymph nodes Retroperitoneal: Unremarkable. Mesenteric: Unremarkable. Pelvic: Unremarkable. Peritoneum: Normal. Vessels: Atherosclerotic calcifications are seen. Abdominal wall: Bilateral fat-containing inguinal hernias are seen. Bones: Degenerative changes in the visualized spine. IMPRESSION: No acute abnormalities. Bilateral perinephric fat stranding is similar to appearance on prior exam an d favored to represent chronic process. ACT 112: Negative or not required by law. Electronically signed by: Arnold Almodovar M.D. 09/23/2021 8:19 AM
[2021-09-23] MEDS ORDERED: VANCOMYCIN CONSULT ACTIVE PRN (09:13)
[2021-09-23] MEDS ORDERED: VANCOMYCIN HCL 2,000 MG in SODIUM CHLORIDE 0.9% 500 ML IV ONE (10:12)
--- NOTE | 2021-09-23 12:45 | Hospitalist Progress Note ---
Date of Service September 23, 2021 Assessment & Plan (1) Sepsis: Plan: 61-year-old man with PMH of HFrEF 2/2 nonischemic CM [EF 30%, TTE 2021] s/p biventricular ICD/PPM, PAF on Coumadin, chronic LBBB, nonobstructive CAD, HTN, HLD, left lung mass [found on outpatient CT 2 months ago] s/p recent bronchoscopy/biopsy [on 09/21 at [place]], ZOFIA on CPAP, not on home oxygen, DM 2 insulin requiring, CKD [baseline creatinine 1.8], chronic anemia [baseline hemoglobin 8-9] presented to our ED 09/22 [per instruction of outpatient provider] with complaint of increasing cough [dry] and SOB associated with nausea/vomiting/fever with chills/sweating on the day of arrival. Patient has completed COVID-19 vaccination. Of note, in December 2019 he was treated for septic shock secondary to MSSA bacteremia secondary to left foot toe nonhealing wound/osteomyelitis. On 09/16/2021, patient underwent pacemaker exchange for pacemaker lead malfunction. Patient was seen in the ED the following day of procedure for fever and body aches when blood culture was drawn and patient sent home; 1 bottle came back positive for MSSA. He is being managed for the following: #. Sepsis POA: At admissionWBC elevated, pulse elevated, temperature elevated, HCAP suspected; and CXR w/ left basilar consolidation. #. Likely HCAP #. GPC Bacteremia Patient had recent pacer exchange followed by ED physician next day when blood culture was drawn and was came back positive for MSSA Sent back to ED for further evaluation of MSSA bacteremia, repeat blood culture 09/22 in the ED again positive for MSSA Admitting CXR: Cardiomegaly and AICD with pulmonary vascular congestion. Left basilar consolidation likely pneumonia, radiographic follow-up for resolution needed. Admitting CTAP: No new acute findings. Sepsis likely secondary to HCAP [likely to recent bronchoscopy procedure/likely aspiration] and GPC bacteremia [likely secondary to recent pacer exchange] Vancomycin and cefepime given in the ED, Zosyn started 09/23, continue with the same for broader coverage until cultures are finalized. Cardiology consult due to recent pacer exchange and bacteremia, echo sent, repeat blood culture tomorrow. ID consult. c/w zosyn #. Elevated troponin Flat trend at 0.07, likely secondary to sepsis. EKG at admission with paced rhythm. Pt w/ no chest pain #. Subtherapeutic INR Secondary to Coumadin being held from recent bronchoscopy INR presentation 1.2, received extra dose of warfarin today, resumed home warfarin dose today PT/INR daily #. Other chronic medical condition: HFrEF, status post biventricular ICD/PPM, PAF on Coumadin, DM 2 insulin requiring, HLD, HTN, CKD, chronic anemia Continue with/resume home medications as and when appropriate. Monitor and replete electrolytes as and when appropriate. DVT prophylaxis. Coumadin INR goal between 2 and 3 Full code Admission and Anticipated Discharge Date Admission Date: September 23, 2021 Subjective Patient seen and examined at bedside as a follow-up of GPC bacteremia, sepsis, likely HCAP. Patient lying in bed, on 2 L nasal cannula oxygen, NAD, no new acute events overnight. Patient has been febrile overnight. T-max of 38.6C. Patient reports feeling better today. Patient eating okay. Patient denies any acute changes in bowel or bladder habit/reports improving fever and chills and sweating/denies any chest pain/palpitations/belly pain/other review of symptoms. Physical Exam Physical Exam: GENERAL: Alert and oriented x3. NAD, on 2L, looks ill. HEENT: No pallor, no icterus. Pupils equal, round and reactive to light. Oral mucosa moist. NECK: No JVD, no neck masses. HEART: S1 and S2 heard. Regular rate and rhythm. No murmur, no gallop. RESPIRATORY SYSTEM: Normal AP diameter. No accessory muscle use. No wheezing, no crackles. ABDOMEN: Soft, bowel sounds present, nontender, no distention. CENTRAL NERVOUS SYSTEM: No facial droop. Speech is clear. Obeys simple commands. Moves extremities. EXTREMITIES: Trace BLE edema, no erythema seen. Left Chest/recent pacer insertion site: stitched, looks clean w/ no erythema and tenderness. Results & Data Results & Data ([facility]) Vital Signs (Past 12 Hours) Vital Signs Temp Pulse Pulse Resp BP Pulse Ox 09/23/21 10:35 36.7 C 71 20 125/73 96 09/23/21 06:55 36.9 C 89 18 123/67 94 09/23/21 01:46 112 H 09/23/21 01:37 36.9 C 120 H 20 136/69 92 09/23/21 01:06 114 H 34 H 126/61 94 09/23/21 00:49 112 H 24 95 09/23/21 00:38 113 H 35 H 137/72 95
--- NOTE | 2021-09-23 14:38 | Cardiology Consultation ---
Date of Consultation September 23, 2021 Assessment & Plan (1) Sepsis: (2) Fever: (3) NICM (nonischemic cardiomyopathy): (4) Biventricular automatic implantable cardioverter defibrillator in situ: The EP service is aware of the patient's admission. An ID consult has been placed. Uncertain as to whether this bacteremia is from the recent pacemaker or the bronchoscopy procedure with biopsies on Tuesday. In any case, we have a patient who is having fevers, chills and now positive blood cultures. Will await for IDs recommendations. History of Present Illness Attending Physician: Vadim Duron MD History of Present Illness This is a 61-year-old male patient who last week had a revision of his biventricular pacemaker due to coronary sinus lead failure. The next day he had a low-grade temperature and came to the emergency department where he was evaluated and discharged. Prior to discharge he did have blood cultures drawn and 1 of 2 bottles grew out staph aureus. He has suspected lung cancer and on Tuesday had a bronchoscopy at [facility] with biopsies. Late yesterday afternoon or early evening the patient began to have chills and spiked a fever to 102. I received a phone call from his niece who is a nurse and I recommended that she bring him to the emergency department. He clinically is stable. The pacemaker site is covered with a clean dressing and does not appear to be infected. Repeat blood cultures however, have now grown 2 out of 2 bottles with gram-positive bacteria. The patient has been started on antibiotics and has had no additional fevers, rigors or chills. An ID consult is pending. Allergies Allergy/AdvReac Type Severity Reaction Status Date / Time No Known Allergies Allergy Verified 09/22/21 22:30 Home Medications Medication Instructions Recorded Confirmed Type atorvastatin 80 mg tablet 80 mg PO QAM 11/26/19 09/22/21 History nytsaiju-pixejflx-wzmkv acid 400 1 tab PO QAM 11/26/19 09/22/21 History mcg-vit K 20 mcg-lycop 300 mcg tablet (Men's Multivitamin) nitroglycerin 0.4 mg sublingual 0.4 mg SUBLINGUAL UD PRN 11/26/19 09/22/21 History tablet (Nitrostat) ferrous sulfate 325 mg (65 mg 325 mg PO BID 01/11/20 09/22/21 History iron) tablet (Iron (ferrous sulfate)) furosemide 80 mg tablet 80 mg PO QAM 05/01/20 09/22/21 History isosorbide dinitrate 20 mg tablet 20 mg PO TID 05/01/20 09/22/21 History metoprolol succinate 100 mg 150 mg PO BID 05/01/20 09/22/21 History tablet,extended release 24 hr pantoprazole 40 mg tablet,delayed 40 mg PO BID 05/01/20 09/22/21 History release tamsulosin 0.4 mg capsule 0.4 mg PO HS 05/01/20 09/22/21 History warfarin 4 mg tablet 4 - 6 mg PO UD 05/01/20 09/22/21 History albuterol sulfate 90 mcg/actuation 2 puff INHALATION Q4 PRN 09/22/21 09/22/21 History aerosol inhaler (Ventolin HFA) benzonatate 100 mg capsule 100 mg PO TID PRN 09/22/21 09/22/21 History dulaglutide 4.5 mg/0.5 mL 4.5 mg SUBCUT WK 09/22/21 09/22/21 History subcutaneous pen injector (Trulicity) ezetimibe 10 mg tablet 10 mg PO DAILY 09/22/21 09/22/21 History fluticasone furoate 200 1 ea INHALATION QAM 09/22/21 09/22/21 History mcg-vilanterol 25 mcg/dose inhalation powder (Breo Ellipta) insulin glargine 100 unit/mL (3 36 unit SUBCUT HS 09/22/21 09/22/21 History mL) subcutaneous pen (Basaglar Eloy U-100 Insulin) metformin 500 mg tablet 500 mg PO BID 09/22/21 09/22/21 History sacubitril 24 mg-valsartan 26 mg 1 tab PO BID 09/22/21 09/22/21 History tablet (Entresto) Patient History Medical History (Updated 09/23/21 @ 14:57 by German Reed DO) Anemia Atrial fibrillation on warfarin, follows with Dr. Forbes Cardiomyopathy CHF (congestive heart failure) acute on chronic heart failure (12/2019 [facility] admission) "clinically improved" with brisk diuresis Diabetes mellitus, type 2 Diabetic neuropathy Dyslipidemia Hyperlipidemia Hypertension ICD (implantable cardioverter-defibrillator) in place meditronic placed 07/2019 Obesity Renal insufficiency Splenic infarct Surgical History History of cardiac cath 2019 @ [facility], no stents History of colonoscopy History of esophagogastroduodenoscopy (EGD) last done 01/15/2020 History of repair of left rotator cuff Presence of biventricular implantable cardioverter-defibrillator (ICD) Status post amputation of toe of left foot Status post amputation of toe of right foot [place] teeth extracted Family History Father Heart disease Other No family history of adverse response to anesthesia Social History Smoking Status: Never smoker Second Hand Exposure: No; Hx Alcohol Use: No Hx Substance Use: No Preferred Language: Kenyan Communication Ability: Effective Retort Unloader Required: No Beliefs That Will Affect Care: None marital status: Single Current Living Situation: Alone Other Information That Helps Us Care for You: No Feels Safe at Home: Yes Safety Concerns: Feels Safe At This Time Assistive Devices: None Review of Systems Review of Systems: Review of Systems: See HPI for pertinent positives. All other 10 point review of systems are negative. Physical Exam Physical Exam: General: no acute distress and stated age Head: normocephalic, no masses, lesions, tenderness or abnormalities Eyes: conjunctiva are pink and non-injected, sclera clear Neck: supple, no adenopathy, no bruits, normal jugular venous pulse, no hepato jugular reflux Chest: normal shape and normal respiratory effort Lungs: clear to auscultation and percussion Cardiac Exam: - regular rate & rhythm, no murmurs gallops or rubs - normal S1, normal S2 Pulses: 2(+) throughout Abdomen: abdomen soft, non-tender, no abnormal masses and no hepatosplenomegaly Musculoskeletal: no gait disturbance, no joint inflammation, no deforming arthritis Extremities: The pacemaker surgical site left subclavian appears to be clean and dry Neuro: grossly normal exam Results & Data ([facility]) Vital Signs (Past 12 Hours) Vital Signs Temp Pulse Pulse Resp BP Pulse Ox 09/23/21 12:30 91 H 09/23/21 10:35 36.7 C 71 20 125/73 96 09/23/21 06:55 36.9 C 89 18 123/67 94 Laboratory Results Laboratory Results - last 24 hr 09/22/21 09/22/21 09/22/21 20:10 20:10 21:42 WBC 15.88 H RBC 3.62 L Hgb 9.6 L Hct 30.3 L MCV 83.7 MCH 26.5 MCHC 31.7 L RDW Std Deviation 47.9 H RDW Coeff of Cristela 15.7 H Plt Count 295 MPV 9.0 Immature Gran % (Auto) 1.1 Neut % (Auto) 91.7 Lymph % (Auto) 3.5 [place] % (Auto) 2.8 Eos % (Auto) 0.8 Baso % (Auto) 0.1 Neut # (Auto) 14.56 H Lymph # (Auto) 0.56 L [place] # (Auto) 0.45 Eos # (Auto) 0.12 Baso # (Auto) 0.02 Immature Gran # (Auto) 0.17 H RBC Morphology PT INR APTT PTT Ratio Sodium Potassium Chloride Carbon Dioxide Anion Gap BUN Creatinine Est Cr Clr Drug Dosing Est GFR ( Amer) Est GFR (Non-Af Amer) BUN/Creatinine Ratio Glucose POC Glucose Lactate Calcium Magnesium Total Bilirubin AST ALT Alkaline Phosphatase Troponin I Total Protein Albumin Globulin Albumin/Globulin Ratio Procalcitonin Urine Color Urine Appearance Urine pH Ur Specific [place] Urine Protein Urine Glucose (UA) Urine Ketones Urine Blood Urine Nitrite Urine Bilirubin Urine Urobilinogen Ur Leukocyte Esterase Urine WBC (Auto) Urine RBC (Auto) U Hyaline Cast (Auto) U Epithel Cells (Auto) Urine Bacteria (Auto) Urine Sperm Nasal Screen MRSA (PCR) Hepatitis C Ab Screen Influ A Molecular Assay Negative Influ B Molecular Assay Negative SARS-CoV-2, RNA, NAAT NEGATIVE Bld Cult Staph aureus PCR Blood Culture MRSA PCR 09/22/21 09/22/21 09/22/21 21:42 21:42 21:42 WBC RBC Hgb Hct MCV MCH MCHC RDW Std Deviation RDW Coeff of Cristela Plt Count MPV Immature Gran % (Auto) Neut % (Auto) Lymph % (Auto) [place] % (Auto) Eos % (Auto) Baso % (Auto) Neut # (Auto) Lymph # (Auto) [place] # (Auto) Eos # (Auto) Baso # (Auto) Immature Gran # (Auto) RBC Morphology PT 12.3 H INR 1.2 H APTT 26.0 PTT Ratio 0.9 Sodium 134 L Potassium Chloride 105 Carbon Dioxide 20 L Anion Gap 9 BUN 39 H Creatinine 1.45 H Est Cr Clr Drug Dosing 74.6 Est GFR ( Amer) 60.7 Est GFR (Non-Af Amer) 52.3 BUN/Creatinine Ratio 26.9 H Glucose 208 H POC Glucose Lactate Calcium 8.6 Magnesium 1.3 L Total Bilirubin 0.6 AST ALT 36 Alkaline Phosphatase 108 H Troponin I 0.07 H* Total Protein 7.0 Albumin 3.3 L Globulin 3.7 Albumin/Globulin Ratio 0.9 Procalcitonin 1.89 H Urine Color Urine Appearance Urine pH Ur Specific [place] Urine Protein Urine Glucose (UA) Urine Ketones Urine Blood Urine Nitrite Urine Bilirubin Urine Urobilinogen Ur Leukocyte Esterase Urine WBC (Auto) Urine RBC (Auto) U Hyaline Cast (Auto) U Epithel Cells (Auto) Urine Bacteria (Auto) Urine Sperm Nasal Screen MRSA (PCR) Hepatitis C Ab Screen Influ A Molecular Assay Influ B Molecular Assay SARS-CoV-2, RNA, NAAT Bld Cult Staph aureus PCR Blood Culture MRSA PCR 09/22/21 09/22/21 09/22/21 21:42 22:10 22:31 WBC RBC Hgb Hct MCV MCH MCHC RDW Std Deviation RDW Coeff of Cristela Plt Count MPV Immature Gran % (Auto) Neut % (Auto) Lymph % (Auto) [place] % (Auto) Eos % (Auto) Baso % (Auto) Neut # (Auto) Lymph # (Auto) [place] # (Auto) Eos # (Auto) Baso # (Auto) Immature Gran # (Auto) RBC Morphology PT INR APTT PTT Ratio Sodium Potassium 4.2 Chloride Carbon Dioxide Anion Gap BUN Creatinine Est Cr Clr Drug Dosing Est GFR ( Amer) Est GFR (Non-Af Amer) BUN/Creatinine Ratio Glucose POC Glucose Lactate Calcium Magnesium Total Bilirubin AST 19 ALT Alkaline Phosphatase Troponin I 0.07 H* Total Protein Albumin Globulin Albumin/Globulin Ratio Procalcitonin Urine Color Yellow Urine Appearance Clear Urine pH 5.0 Ur Specific [place] 1.015 Urine Protein 2+ H Urine Glucose (UA) Negative Urine Ketones Negative Urine Blood Trace H Urine Nitrite Negative Urine Bilirubin Negative Urine Urobilinogen Negative Ur Leukocyte Esterase Negative Urine WBC (Auto) 1-5 Urine RBC (Auto) 0-4 U Hyaline Cast (Auto) 5-10 H U Epithel Cells (Auto) 10-20 H Urine Bacteria (Auto) Negative Urine Sperm Present A Nasal Screen MRSA (PCR) Hepatitis C Ab Screen Influ A Molecular Assay Influ B Molecular Assay SARS-CoV-2, RNA, NAAT Bld Cult Staph aureus PCR Positive A Blood Culture MRSA PCR Negative 09/22/21 09/22/21 09/23/21 22:31 22:32 02:03 WBC RBC Hgb Hct MCV MCH MCHC RDW Std Deviation RDW Coeff of Cristela Plt Count MPV Immature Gran % (Auto) Neut % (Auto) Lymph % (Auto) [place] % (Auto) Eos % (Auto) Baso % (Auto) Neut # (Auto) Lymph # (Auto) [place] # (Auto) Eos # (Auto) Baso # (Auto) Immature Gran # (Auto) RBC Morphology PT INR APTT PTT Ratio Sodium Potassium Chloride Carbon Dioxide Anion Gap BUN Creatinine Est Cr Clr Drug Dosing Est GFR ( Amer) Est GFR (Non-Af Amer) BUN/Creatinine Ratio Glucose POC Glucose 244 H Lactate 1.2 Calcium Magnesium Total Bilirubin AST ALT Alkaline Phosphatase Troponin I Total Protein Albumin Globulin Albumin/Globulin Ratio Procalcitonin Urine Color Urine Appearance Urine pH Ur Specific [place] Urine Protein Urine Glucose (UA) Urine Ketones Urine Blood Urine Nitrite Urine Bilirubin Urine Urobilinogen Ur Leukocyte Esterase Urine WBC (Auto) Urine RBC (Auto) U Hyaline Cast (Auto) U Epithel Cells (Auto) Urine Bacteria (Auto) Urine Sperm Nasal Screen MRSA (PCR) Hepatitis C Ab Screen Neg Influ A Molecular Assay Influ B Molecular Assay SARS-CoV-2, RNA, NAAT Bld Cult Staph aureus PCR Blood Culture MRSA PCR 09/23/21 09/23/21 09/23/21 05:24 05:24 05:24 WBC 19.75 H RBC 2.90 L Hgb 7.8 L Hct 24.1 L MCV 83.1 MCH 26.9 MCHC 32.4 RDW Std Deviation 48.2 H RDW Coeff of Cristela 15.9 H Plt Count 232 MPV 8.7 Immature Gran % (Auto) 0.5 Neut % (Auto) 89.5 Lymph % (Auto) 6.0 [place] % (Auto) 3.8 Eos % (Auto) 0.1 Baso % (Auto) 0.1 Neut # (Auto) 17.68 H Lymph # (Auto) 1.19 L [place] # (Auto) 0.75 H Eos # (Auto) 0.02 Baso # (Auto) 0.02 Immature Gran # (Auto) 0.09 H RBC Morphology Unremarkable PT 13.0 H INR 1.2 H APTT PTT Ratio Sodium 134 L Potassium 4.0 Chloride 107 Carbon Dioxide 19 L Anion Gap 8 BUN 40 H Creatinine 1.57 H Est Cr Clr Drug Dosing 69.4 Est GFR ( Amer) 55.1 Est GFR (Non-Af Amer) 47.5 BUN/Creatinine Ratio 25.5 H Glucose 204 H POC Glucose Lactate Calcium 7.9 L Magnesium 1.8 Total Bilirubin AST ALT Alkaline Phosphatase Troponin I 0.07 H* Total Protein Albumin Globulin Albumin/Globulin Ratio Procalcitonin Urine Color Urine Appearance Urine pH Ur Specific [place] Urine Protein Urine Glucose (UA) Urine Ketones Urine Blood Urine Nitrite Urine Bilirubin Urine Urobilinogen Ur Leukocyte Esterase Urine WBC (Auto) Urine RBC (Auto) U Hyaline Cast (Auto) U Epithel Cells (Auto) Urine Bacteria (Auto) Urine Sperm Nasal Screen MRSA (PCR) Hepatitis C Ab Screen Influ A Molecular Assay Influ B Molecular Assay SARS-CoV-2, RNA, NAAT Bld Cult Staph aureus PCR Blood Culture MRSA PCR 09/23/21 09/23/21 09/23/21 08:04 11:00 11:21 WBC RBC Hgb Hct MCV MCH MCHC RDW Std Deviation RDW Coeff of Cristela Plt Count MPV Immature Gran % (Auto) Neut % (Auto) Lymph % (Auto) [place] % (Auto) Eos % (Auto) Baso % (Auto) Neut # (Auto) Lymph # (Auto) [place] # (Auto) Eos # (Auto) Baso # (Auto) Immature Gran # (Auto) RBC Morphology PT INR APTT PTT Ratio Sodium Potassium Chloride Carbon Dioxide Anion Gap BUN Creatinine Est Cr Clr Drug Dosing Est GFR ( Amer) Est GFR (Non-Af Amer) BUN/Creatinine Ratio Glucose POC Glucose 208 H 210 H Lactate Calcium Magnesium Total Bilirubin AST ALT Alkaline Phosphatase Troponin I Total Protein Albumin Globulin Albumin/Globulin Ratio Procalcitonin Urine Color Urine Appearance Urine pH Ur Specific [place] Urine Protein Urine Glucose (UA) Urine Ketones Urine Blood Urine Nitrite Urine Bilirubin Urine Urobilinogen Ur Leukocyte Esterase Urine WBC (Auto) Urine RBC (Auto) U Hyaline Cast (Auto) U Epithel Cells (Auto) Urine Bacteria (Auto) Urine Sperm Nasal Screen MRSA (PCR) Negative Hepatitis C Ab Screen Influ A Molecular Assay Influ B Molecular Assay SARS-CoV-2, RNA, NAAT Bld Cult Staph aureus PCR Blood Culture MRSA PCR Medications Administered Current Inpatient Medications Acetaminophen (Acetaminophen 325 Mg Tab) 650 mg PO Q4H PRN PRN Reason: Pain or Fever Stop: 10/23/21 01:39 Atorvastatin Calcium (Atorvastatin 40 Mg Tab) 80 mg PO QAM YULI Stop: 10/23/21 08:59 Last Admin: 09/23/21 08:14 Dose: 80 mg Documented by: Dextrose (Dextrose 50% 50 Ml Syringe) 25 - 50 ml IV UD PRN; Protocol PRN Reason: Hypoglycemia Protocol Stop: 10/23/21 01:39 Ezetimibe (Ezetimibe 10 Mg Tablet) 10 mg PO DAILY [facility] Stop: 10/23/21 08:59 Last Admin: 09/23/21 08:14 Dose: 10 mg Documented by: Ferrous Sulfate (Ferrous Sulfate 325 Mg Tab) 325 mg PO BID YULI Stop: 10/23/21 08:59 Last Admin: 09/23/21 08:14 Dose: 325 mg Documented by: Fluticasone/Vilanterol (Fluticasone/Vilanterol 200/25mcg 14 Puffs/Inhaler) 1 puffs INH QAM [facility] Stop: 10/23/21 08:59 Last Admin: 09/23/21 08:15 Dose: 1 puffs Documented by: Glucagon (Glucagon For Inj 1 Mg Vial) 1 mg SQ UD PRN; Protocol PRN Reason: Hypoglycemia Protocol Stop: 10/23/21 01:39 Glucose (Glucose 10 Tabs/Tube) 4 - 8 tabs PO UD PRN; Protocol PRN Reason: Hypoglycemia Protocol Stop: 10/23/21 01:39 Glucose (Glucose 40% Gel 15 Gm Tube) 15 - 30 gm PO UD PRN; Protocol PRN Reason: Hypoglycemia Protocol Stop: 10/23/21 01:39 Guaifenesin (Guaifenesin 600 Mg Tabcr) 600 mg PO Q12 YULI Stop: 10/23/21 01:39 Last Admin: 09/23/21 08:15 Dose: 600 mg Documented by: Promethazine HCl 12.5 mg/ (Sodium Chloride) 50.5 mls @ 202 mls/hr IV Q6H PRN PRN Reason: Nausea And Vomiting Stop: 10/23/21 01:39 Piperacillin Sod/Tazobactam (Sod 4.5 gm/ Dextrose) 120 mls @ 30 mls/hr IV Q8H [facility]; Protocol Stop: 09/30/21 05:59 Last Infusion: 09/23/21 09:00 Dose: Infused Documented by: Insulin Aspart (Insulin Aspart Per Unit) 0 units SC ACHS [facility] Stop: 10/23/21 01:39 Last Admin: 09/23/21 12:24 Dose: 5 units Documented by: Insulin Glargine (Insulin Glargine Solostar 100 Units/Ml 3 Ml Pen) 15 units SQ HS [facility] Stop: 10/23/21 01:39 Last Admin: 09/23/21 03:35 Dose: 15 units Documented by: Isosorbide Dinitrate (Isosorbide Dinitrate 20 Mg Tab) 20 mg PO TID@0700,1200,1700 [facility] Stop: 10/23/21 06:59 Last Admin: 09/23/21 12:57 Dose: 20 mg Documented by: Metoprolol Succinate (Metoprolol Succ 50mg Ext Rel Tab) 150 mg PO BID [facility] Stop: 10/23/21 00:29 Last Admin: 09/23/21 08:15 Dose: 150 mg Documented by: Miscellaneous (Carbohydrates For Hypoglycemia ) 15 - 30 gm PO UD PRN PRN Reason: Hypoglycemia Protocol Stop: 10/23/21 01:39 Miscellaneous Information (Piperacill/Tazobac Consult Active) 1 ea N/A UD PRN PRN Reason: Consult Stop: 10/23/21 00:15 Multivitamins/Minerals (Cerovite Adv Formula Tab) 1 tab PO QAM [facility] Stop: 10/23/21 08:59 Last Admin: 09/23/21 08:16 Dose: 1 tab Documented by: Nitroglycerin (Nitroglycerin Sl 0.4 Mg/Tab Tab) 0.4 mg SL UD PRN PRN Reason: Chest Pain Stop: 10/23/21 01:39 Pantoprazole Sodium (Pantoprazole 40 Mg Tab) 40 mg PO BID [facility] Stop: 10/23/21 08:59 Last Admin: 09/23/21 08:16 Dose: 40 mg Documented by: Tamsulosin HCl (Tamsulosin Hcl 0.4 Mg Cap) 0.4 mg PO HS [facility] Stop: 10/23/21 20:59 Tramadol HCl (Tramadol Hcl 50 Mg Tablet) 25 - 50 mg PO Q4H PRN PRN Reason: Pain Stop: 10/23/21 01:39 Warfarin Sodium (Warfarin Sod 5 Mg Tab) 5 mg PO DAILY@1600 [facility] Stop: 10/23/21 15:59 (1) Fever Fever type: unspecified Qualified Code(s): R50.9 - Fever, unspecified
[2021-09-23] MEDS: WARFARIN SOD 5 MG TAB PO SCH (15:34)
[2021-09-23] MEDS ORDERED: DOXYCYCLINE HYCLATE 100 MG CAP PO SCH (18:00)
[2021-09-23] MEDS: TAMSULOSIN HCL 0.4 MG CAP PO SCH (20:17)
--- NOTE | 2021-09-23 21:43 | Electrocardiogram Report ---
Test Reason : Blood Pressure : / mmHG Vent. Rate : 119 BPM Atrial Rate : 119 BPM P-R Int : 144 ms QRS Dur : 128 ms QT Int : 340 ms P-R-T Axes : 043 018 156 degrees QTc Int : 478 ms Atrial-sensed ventricular-paced rhythm Abnormal ECG When compared with ECG of 17-SEP-2021 15:29, HR has increased by 30 bpm Confirmed by Braydon Patel ([id number]) on 09/23/2021 9:43:36 PM Referred By: German Reed Confirmed By:Braydon Patel
[2021-09-24] MEDS: PIPERACILLIN/TAZOBACTAM 4.5 GM in DEXTROSE 5% 100 ML IV SCH ×3 (05:31→21:04)
[2021-09-24] MEDS: ISOSORBIDE DINITRATE 20 MG TAB PO SCH ×3 (06:00→17:21)
[2021-09-24] MEDS: ATORVASTATIN 40 MG TAB PO SCH (08:11)
[2021-09-24] MEDS: EZETIMIBE 10 MG TABLET PO SCH (08:12)
[2021-09-24] MEDS: FERROUS SULFATE 325 MG TAB PO SCH ×2 (08:12→21:01)
[2021-09-24] MEDS: FLUTICASONE/VILANTEROL 200/25MCG 14 PUFFS/INHALER INH SCH (08:12)
[2021-09-24] MEDS: guaiFENesin 600 MG TABCR PO SCH ×2 (08:13→21:01)
[2021-09-24] MEDS: METOPROLOL SUCC 50MG EXT REL TAB PO SCH ×2 (08:13→21:02)
[2021-09-24] MEDS: PANTOprazole 40 MG TAB PO SCH ×2 (08:13→21:02)
[2021-09-24] MEDS: CEROVITE ADV FORMULA TAB PO SCH (08:13)
[2021-09-24 08:17] LABS: Hematocrit (blood only) 23.3 % (42-52); Hemoglobin 7.9 g/dL (14.0-18.0); Mean Corpuscular Hgb Conc 33.9 g/dL (32-36); Mean Corpuscular Volume 82.6 fL (80-100); Mean Platelet Volume 8.8 fL (7.4-10.4); Platelet Count 234 K/uL (130-400); RDW Coefficient of Variation 16.2 % (11.5-14.5); RDW Standard Deviation 49.3 fL (36.4-46.3); Red Blood Count 2.82 M/uL (4.7-6.1)
[2021-09-24 08:19] LABS: INR 1.6 (0.9-1.1); Prothrombin Time 16.9 Seconds (9.0-12.0)
[2021-09-24] MEDS: INSULIN ASPART PER UNIT SC SCH ×4 (08:20→20:59)
[2021-09-24 08:39] LABS: BUN Creatinine Ratio 26.4 (10-20); Creatinine Clr Calc Pharmacy 75.8 ml/min; Est GFR (African American) 61.2 ml/min; Est GFR (Non-African American) 52.8 ml/min; Magnesium 1.9 mg/dl (1.7-2.4); Phosphorus 3.5 mg/dl (2.5-4.9); Potassium 3.7 mmol/L (3.5-5.1)
--- NOTE | 2021-09-24 13:47 | Cardiology Progress Note ---
Date of Service September 24, 2021 Assessment & Plan (1) Sepsis: (2) Fever: (3) NICM (nonischemic cardiomyopathy): (4) Biventricular automatic implantable cardioverter defibrillator in situ: Plan: As mentioned, the patient is feeling better on antibiotics. His most recent blood cultures have grown staph aureus. ID consult is still pending. Admission and Anticipated Discharge Date Admission Date: September 23, 2021 Subjective The patient is feeling better now that he is on antibiotics. No fevers. Review of Systems Review of Systems: Review of Systems: See HPI for pertinent positives. All other 10 point review of systems are negative. Physical Exam Physical Exam: General: no acute distress and stated age Head: normocephalic, no masses, lesions, tenderness or abnormalities Eyes: conjunctiva are pink and non-injected, sclera clear Neck: supple, no adenopathy, no bruits, normal jugular venous pulse, no hepatojugular reflux Chest: normal shape and normal respiratory effort Lungs: clear to auscultation and percussion Cardiac Exam: - regular rate & rhythm, no murmurs gallops or rubs - normal S1, normal S2 Pulses: 2(+) throughout Abdomen: abdomen soft, non-tender, no abnormal masses and no hepatosplenomegaly Musculoskeletal: no gait disturbance, no joint inflammation, no deforming arthritis Extremities: The pacemaker surgical site left subclavian appears to be clean and dry Neuro: grossly normal exam Results & Data ([facility]) Vital Signs (Past 12 Hours) Vital Signs Temp Pulse Pulse Resp BP BP Pulse Ox 09/24/21 11:21 36.8 C 81 18 116/74 92 09/24/21 09:40 81 09/24/21 06:44 36.8 C 81 20 119/70 91 09/24/21 03:58 37 C 78 20 108/69 92 Laboratory Results Laboratory Results - last 24 hr 09/23/21 09/23/21 09/24/21 16:27 20:01 07:54 WBC RBC Hgb Hct MCV MCH MCHC RDW Std Deviation RDW Coeff of Cristela Plt Count MPV PT 16.9 H INR 1.6 H Sodium Potassium Chloride Carbon Dioxide Anion Gap BUN Creatinine Est Cr Clr Drug Dosing Est GFR ( Amer) Est GFR (Non-Af Amer) BUN/Creatinine Ratio Glucose POC Glucose 153 H 141 H Calcium Phosphorus Magnesium 09/24/21 09/24/21 09/24/21 07:54 07:54 08:02 WBC 9.40 RBC 2.82 L Hgb 7.9 L Hct 23.3 L MCV 82.6 MCH 28.0 MCHC 33.9 RDW Std Deviation 49.3 H RDW Coeff of Cristela 16.2 H Plt Count 234 MPV 8.8 PT INR Sodium 136 Potassium 3.7 Chloride 109 H Carbon Dioxide 21 Anion Gap 6 BUN 38 H Creatinine 1.44 H Est Cr Clr Drug Dosing 75.8 Est GFR ( Amer) 61.2 Est GFR (Non-Af Amer) 52.8 BUN/Creatinine Ratio 26.4 H Glucose 100 H POC Glucose 117 H Calcium 8.0 L Phosphorus 3.5 Magnesium 1.9 09/24/21 11:31 WBC RBC Hgb Hct MCV MCH MCHC RDW Std Deviation RDW Coeff of Cristela Plt Count MPV PT INR Sodium Potassium Chloride Carbon Dioxide Anion Gap BUN Creatinine Est Cr Clr Drug Dosing Est GFR ( Amer) Est GFR (Non-Af Amer) BUN/Creatinine Ratio Glucose POC Glucose 184 H Calcium Phosphorus Magnesium Medications Administered Current Inpatient Medications Acetaminophen (Acetaminophen 325 Mg Tab) 650 mg PO Q4H PRN PRN Reason: Pain or Fever Stop: 10/23/21 01:39 Atorvastatin Calcium (Atorvastatin 40 Mg Tab) 80 mg PO QAM [facility] Stop: 10/23/21 08:59 Last Admin: 09/24/21 08:11 Dose: 80 mg Documented by: Dextrose (Dextrose 50% 50 Ml Syringe) 25 - 50 ml IV UD PRN; Protocol PRN Reason: Hypoglycemia Protocol Stop: 10/23/21 01:39 Ezetimibe (Ezetimibe 10 Mg Tablet) 10 mg PO DAILY YULI Stop: 10/23/21 08:59 Last Admin: 09/24/21 08:12 Dose: 10 mg Documented by: Ferrous Sulfate (Ferrous Sulfate 325 Mg Tab) 325 mg PO BID YULI Stop: 10/23/21 08:59 Last Admin: 09/24/21 08:12 Dose: 325 mg Documented by: Fluticasone/Vilanterol (Fluticasone/Vilanterol 200/25mcg 14 Puffs/Inhaler) 1 puffs INH QAM [facility]UL[facility] Stop: 10/23/21 08:59 Last Admin: 09/24/21 08:12 Dose: 1 puffs Documented by: Glucagon (Glucagon For Inj 1 Mg Vial) 1 mg SQ UD PRN; Protocol PRN Reason: Hypoglycemia Protocol Stop: 10/23/21 01:39 Glucose (Glucose 10 Tabs/Tube) 4 - 8 tabs PO UD PRN; Protocol PRN Reason: Hypoglycemia Protocol Stop: 10/23/21 01:39 Glucose (Glucose 40% Gel 15 Gm Tube) 15 - 30 gm PO UD PRN; Protocol PRN Reason: Hypoglycemia Protocol Stop: 10/23/21 01:39 Guaifenesin (Guaifenesin 600 Mg Tabcr) 600 mg PO Q12 [facility] Stop: 10/23/21 01:39 Last Admin: 09/24/21 08:13 Dose: 600 mg Documented by: Promethazine HCl 12.5 mg/ (Sodium Chloride) 50.5 mls @ 202 mls/hr IV Q6H PRN PRN Reason: Nausea And Vomiting Stop: 10/23/21 01:39 Piperacillin Sod/Tazobactam (Sod 4.5 gm/ Dextrose) 120 mls @ 30 mls/hr IV Q8H YULI; Protocol Stop: 09/30/21 05:59 Last Admin: 09/24/21 13:15 Dose: 30 mls/hr Documented by: Insulin Aspart (Insulin Aspart Per Unit) 0 units SC ACHS [facility] Stop: 10/23/21 01:39 Last Admin: 09/24/21 12:21 Dose: 4 units Documented by: Insulin Glargine (Insulin Glargine Solostar 100 Units/Ml 3 Ml Pen) 15 units SQ HS [facility] Stop: 10/23/21 01:39 Last Admin: 09/23/21 20:15 Dose: 15 units Documented by: Isosorbide Dinitrate (Isosorbide Dinitrate 20 Mg Tab) 20 mg PO TID@0700,1200,1700 [facility] Stop: 10/23/21 06:59 Last Admin: 09/24/21 12:25 Dose: 20 mg Documented by: Metoprolol Succinate (Metoprolol Succ 50mg Ext Rel Tab) 150 mg PO BID [facility] Stop: 10/23/21 00:29 Last Admin: 09/24/21 08:13 Dose: 150 mg Documented by: Miscellaneous (Carbohydrates For Hypoglycemia ) 15 - 30 gm PO UD PRN PRN Reason: Hypoglycemia Protocol Stop: 10/23/21 01:39 Miscellaneous Information (Piperacill/Tazobac Consult Active) 1 ea N/A UD PRN PRN Reason: Consult Stop: 10/23/21 00:15 Multivitamins/Minerals (Cerovite Adv Formula Tab) 1 tab PO QAM [facility] Stop: 10/23/21 08:59 Last Admin: 09/24/21 08:13 Dose: 1 tab Documented by: Nitroglycerin (Nitroglycerin Sl 0.4 Mg/Tab Tab) 0.4 mg SL UD PRN PRN Reason: Chest Pain Stop: 10/23/21 01:39 Pantoprazole Sodium (Pantoprazole 40 Mg Tab) 40 mg PO BID [facility] Stop: 10/23/21 08:59 Last Admin: 09/24/21 08:13 Dose: 40 mg Documented by: Tamsulosin HCl (Tamsulosin Hcl 0.4 Mg Cap) 0.4 mg PO HS [facility] Stop: 10/23/21 20:59 Last Admin: 09/23/21 20:17 Dose: 0.4 mg Documented by: Tramadol HCl (Tramadol Hcl 50 Mg Tablet) 25 - 50 mg PO Q4H PRN PRN Reason: Pain Stop: 10/23/21 01:39 Warfarin Sodium (Warfarin Sod 5 Mg Tab) 5 mg PO DAILY@1600 [facility] Stop: 10/23/21 15:59 Last Admin: 09/23/21 15:34 Dose: 5 mg Documented by: (1) Fever Fever type: unspecified Qualified Code(s): R50.9 - Fever, unspecified
[2021-09-24] MEDS: WARFARIN SOD 5 MG TAB PO SCH (15:43)
--- NOTE | 2021-09-24 17:54 | Hospitalist Progress Note ---
Date of Service September 24, 2021 Assessment & Plan (1) Sepsis: Plan: 61-year-old man with PMH of HFrEF 2/2 nonischemic CM [EF 30%, TTE 2021] s/p biventricular ICD/PPM, PAF on Coumadin, chronic LBBB, nonobstructive CAD, HTN, HLD, left lung mass [found on outpatient CT 2 months ago] s/p recent bronchoscopy/biopsy [on 09/21 at [place]], ZOFIA on CPAP, not on home oxygen, DM 2 insulin requiring, CKD [baseline creatinine 1.8], chronic anemia [baseline hemoglobin 8-9] presented to our ED 09/22 [per instruction of outpatient provider] with complaint of increasing cough [dry] and SOB associated with nausea/vomiting/fever with chills/sweating on the day of arrival. Patient has completed COVID-19 vaccination. Of note, in December 2019 he was treated for septic shock secondary to MSSA bacteremia secondary to left foot toe nonhealing wound/osteomyelitis. On 09/16/2021, patient underwent pacemaker exchange for pacemaker lead malfunction. Patient was seen in the ED the following day of procedure for fever and body aches when blood culture was drawn and patient sent home; 1 bottle came back positive for MSSA. He is being managed for the following: #. Sepsis POA: At admissionWBC elevated, pulse elevated, temperature elevated, HCAP suspected; and CXR w/ left basilar consolidation. #. Likely HCAP #. GPC Bacteremia Patient had recent pacer exchange followed by ED visit next day when blood culture was drawn and was came back positive for MSSA Sent back to ED 09/22 for further evaluation of MSSA bacteremia, repeat blood culture 09/22 in the ED again positive for MSSA Admitting CXR: Cardiomegaly and AICD with pulmonary vascular congestion. Left basilar consolidation likely pneumonia, radiographic follow-up for resolution needed. Admitting CTAP: No new acute findings. Sepsis likely secondary to HCAP [likely to recent bronchoscopy procedure/likely aspiration] and GPC bacteremia [likely secondary to recent pacer exchange vs lung biopsy] Vancomycin and cefepime given in the ED, Zosyn started 09/23, continue with the same for broader coverage until cultures are finalized. Cardiology on board due to recent pacer exchange and bacteremia 09/24 ECHO: EF 35 to 40% no evidence of a mass or vegetation. Send blood culture 09/24. ID consult. c/w zosyn #. Elevated troponin Flat trend at 0.07, likely secondary to sepsis. EKG at admission with paced rhythm. Pt w/ no chest pain #. Subtherapeutic INR Secondary to Coumadin being held from recent bronchoscopy INR presentation 1.2, trending up PT/INR daily #. Other chronic medical condition: HFrEF, status post biventricular ICD/PPM, PAF on Coumadin, DM 2 insulin requiring, HLD, HTN, CKD, chronic anemia Continue with/resume home medications as and when appropriate. Monitor and replete electrolytes as and when appropriate. DVT prophylaxis. Coumadin INR goal between 2 and 3 Full code Admission and Anticipated Discharge Date Admission Date: September 23, 2021 Subjective Patient seen and examined at bedside as a follow-up of GPC bacteremia, sepsis, likely HCAP. Patient lying in bed, on room air, NAD, no new acute events overnight, patient reports feeling better. Patient remains afebrile. Patient eating okay and moving bowels okay. Patient denies any acute changes in bowel or bladder habit/reports improving fever and chills and sweating/denies any chest pain/palpitations/belly pain/other review of symptoms. Telemetry reviewed, was in paced rhythm overnight, had 10 beats of V. tach in the morning. Physical Exam Physical Exam: GENERAL: Alert and oriented x3. NAD, on room air. HEENT: No pallor, no icterus. Pupils equal, round and reactive to light. Oral mucosa moist. NECK: No JVD, no neck masses. HEART: S1 and S2 heard. Regular rate and rhythm. No murmur, no gallop. RESPIRATORY SYSTEM: Normal AP diameter. No accessory muscle use. No wheezing, no crackles. ABDOMEN: Soft, bowel sounds present, nontender, no distention. CENTRAL NERVOUS SYSTEM: No facial droop. Speech is clear. Obeys simple commands. Moves extremities. EXTREMITIES: Trace BLE edema, no erythema seen. Left Chest/recent pacer insertion site: stitched, looks clean w/ no erythema and tenderness. Results & Data Results & Data ([facility]) Vital Signs (Past 12 Hours) Vital Signs Temp Pulse Pulse Resp BP BP Pulse Ox 09/24/21 16:00 36.6 C 81 18 115/74 91 09/24/21 15:46 83 09/24/21 11:21 36.8 C 81 18 116/74 92 09/24/21 09:40 81 09/24/21 06:44 36.8 C 81 20 119/70 91
[2021-09-24] MEDS: INSULIN GLARGINE SOLOSTAR 100 UNITS/ML 3 ML PEN SQ SCH (21:00)
[2021-09-24] MEDS: TAMSULOSIN HCL 0.4 MG CAP PO SCH (21:01)
[2021-09-25 05:52] LABS: Hematocrit (blood only) 23.9 % (42-52); Hemoglobin 7.6 g/dL (14.0-18.0); Mean Corpuscular Hemoglobin 26.6 pg (25-34); Mean Corpuscular Hgb Conc 31.8 g/dL (32-36); Mean Corpuscular Volume 83.6 fL (80-100); Mean Platelet Volume 8.8 fL (7.4-10.4); Platelet Count 255 K/uL (130-400); RDW Coefficient of Variation 15.9 % (11.5-14.5); RDW Standard Deviation 48.9 fL (36.4-46.3); Red Blood Count 2.86 M/uL (4.7-6.1); White Blood Count 6.89 K/uL (4.8-10.8)
[2021-09-25] MEDS: PIPERACILLIN/TAZOBACTAM 4.5 GM in DEXTROSE 5% 100 ML IV SCH ×2 (05:58→14:13)
[2021-09-25] MEDS: ISOSORBIDE DINITRATE 20 MG TAB PO SCH ×3 (05:59→17:23)
[2021-09-25 06:21] LABS: BUN Creatinine Ratio 22.8 (10-20); Calcium 8.1 mg/dl (8.5-10.1); Creatinine Clr Calc Pharmacy 65.6 ml/min; Est GFR (African American) 51.1 ml/min; Est GFR (Non-African American) 44.1 ml/min; Potassium 3.6 mmol/L (3.5-5.1)
[2021-09-25 06:25] LABS: INR 1.8 (0.9-1.1); Prothrombin Time 18.9 Seconds (9.0-12.0)
[2021-09-25] MEDS: INSULIN ASPART PER UNIT SC SCH ×4 (09:29→20:34)
[2021-09-25] MEDS: ATORVASTATIN 40 MG TAB PO SCH (09:30)
[2021-09-25] MEDS: EZETIMIBE 10 MG TABLET PO SCH (09:30)
[2021-09-25] MEDS: PANTOprazole 40 MG TAB PO SCH ×2 (09:31→20:36)
[2021-09-25] MEDS: guaiFENesin 600 MG TABCR PO SCH ×2 (09:31→20:37)
[2021-09-25] MEDS: METOPROLOL SUCC 50MG EXT REL TAB PO SCH ×2 (09:31→20:36)
[2021-09-25] MEDS: CEROVITE ADV FORMULA TAB PO SCH (09:31)
[2021-09-25] MEDS: FERROUS SULFATE 325 MG TAB PO SCH ×2 (09:31→20:37)
[2021-09-25] MEDS: FLUTICASONE/VILANTEROL 200/25MCG 14 PUFFS/INHALER INH SCH (09:31)
--- NOTE | 2021-09-25 10:28 | Cardiology Progress Note ---
Date of Service September 25, 2021 Assessment & Plan (1) Sepsis: (2) Fever: (3) NICM (nonischemic cardiomyopathy): (4) Biventricular automatic implantable cardioverter defibrillator in situ: Plan: The patient is doing well on the antibiotics. Unfortunately, the ID consult which was completed on the has just come to the chart. They are requesting a MARGA for completeness and to exclude endocarditis. If there is evidence of vegetations either on the pacemaker leads or the cardiac valves then the device will have to be removed. The patient has already eaten today and I do not think the MARGA can be completed today. The long and short of it is the patient have to wait until Tuesday. Admission and Anticipated Discharge Date Admission Date: September 23, 2021 Subjective The patient has no complaints. He is feeling well. Review of Systems Review of Systems: Review of Systems: See HPI for pertinent positives. All other 10 point review of systems are negative. Physical Exam Physical Exam: General: no acute distress and stated age Head: normocephalic, no masses, lesions, tenderness or abnormalities Eyes: conjunctiva are pink and non-injected, sclera clear Neck: supple, no adenopathy, no bruits, normal jugular venous pulse, no hepatojugular reflux Chest: normal shape and normal respiratory effort Lungs: clear to auscultation and percussion Cardiac Exam: - regular rate & rhythm, no murmurs gallops or rubs - normal S1, normal S2 Pulses: 2(+) throughout Abdomen: abdomen soft, non-tender, no abnormal masses and no hepatosplenomegaly Musculoskeletal: no gait disturbance, no joint inflammation, no deforming arthritis Extremities: The pacemaker surgical site left subclavian appears to be clean and dry Neuro: grossly normal exam Results & Data ([facility]) Vital Signs (Past 12 Hours) Vital Signs Temp Pulse Pulse Resp BP BP Pulse Ox 09/25/21 07:28 36.7 C 77 20 125/75 93 09/25/21 05:57 75 16 138/77 91 09/25/21 03:25 36.8 C 73 20 113/69 92 09/24/21 23:47 77 09/24/21 22:25 37.1 C 77 20 131/76 96 Laboratory Results Laboratory Results - last 24 hr 09/24/21 09/24/21 09/24/21 11:31 16:40 20:15 WBC RBC Hgb Hct MCV MCH MCHC RDW Std Deviation RDW Coeff of Cristela Plt Count MPV PT INR Sodium Potassium Chloride Carbon Dioxide Anion Gap BUN Creatinine Est Cr Clr Drug Dosing Est GFR ( Amer) Est GFR (Non-Af Amer) BUN/Creatinine Ratio Glucose POC Glucose 184 H 214 H Calcium Stool Occult Bld Scrn Negative 09/24/21 09/25/21 09/25/21 20:30 05:32 05:32 WBC 6.89 RBC 2.86 L Hgb 7.6 L Hct 23.9 L MCV 83.6 MCH 26.6 MCHC 31.8 L RDW Std Deviation 48.9 H RDW Coeff of Cristela 15.9 H Plt Count 255 MPV 8.8 PT INR Sodium 136 Potassium 3.6 Chloride 109 H Carbon Dioxide 22 Anion Gap 5 BUN 38 H Creatinine 1.67 H Est Cr Clr Drug Dosing 65.6 Est GFR ( Amer) 51.1 Est GFR (Non-Af Amer) 44.1 BUN/Creatinine Ratio 22.8 H Glucose 110 H POC Glucose 160 H Calcium 8.1 L Stool Occult Bld Scrn 09/25/21 09/25/21 05:32 07:47 WBC RBC Hgb Hct MCV MCH MCHC RDW Std Deviation RDW Coeff of Cristela Plt Count MPV PT 18.9 H INR 1.8 H Sodium Potassium Chloride Carbon Dioxide Anion Gap BUN Creatinine Est Cr Clr Drug Dosing Est GFR ( Amer) Est GFR (Non-Af Amer) BUN/Creatinine Ratio Glucose POC Glucose 123 H Calcium Stool Occult Bld Scrn Medications Administered Current Inpatient Medications Acetaminophen (Acetaminophen 325 Mg Tab) 650 mg PO Q4H PRN PRN Reason: Pain or Fever Stop: 10/23/21 01:39 Atorvastatin Calcium (Atorvastatin 40 Mg Tab) 80 mg PO QAM [facility] Stop: 10/23/21 08:59 Last Admin: 09/25/21 09:30 Dose: 80 mg Documented by: Dextrose (Dextrose 50% 50 Ml Syringe) 25 - 50 ml IV UD PRN; Protocol PRN Reason: Hypoglycemia Protocol Stop: 10/23/21 01:39 Ezetimibe (Ezetimibe 10 Mg Tablet) 10 mg PO DAILY YULI Stop: 10/23/21 08:59 Last Admin: 09/25/21 09:30 Dose: 10 mg Documented by: Ferrous Sulfate (Ferrous Sulfate 325 Mg Tab) 325 mg PO BID [facility] Stop: 10/23/21 08:59 Last Admin: 09/25/21 09:31 Dose: 325 mg Documented by: Fluticasone/Vilanterol (Fluticasone/Vilanterol 200/25mcg 14 Puffs/Inhaler) 1 puffs INH QAM [facility] Stop: 10/23/21 08:59 Last Admin: 09/25/21 09:31 Dose: 1 puffs Documented by: Glucagon (Glucagon For Inj 1 Mg Vial) 1 mg SQ UD PRN; Protocol PRN Reason: Hypoglycemia Protocol Stop: 10/23/21 01:39 Glucose (Glucose 10 Tabs/Tube) 4 - 8 tabs PO UD PRN; Protocol PRN Reason: Hypoglycemia Protocol Stop: 10/23/21 01:39 Glucose (Glucose 40% Gel 15 Gm Tube) 15 - 30 gm PO UD PRN; Protocol PRN Reason: Hypoglycemia Protocol Stop: 10/23/21 01:39 Guaifenesin (Guaifenesin 600 Mg Tabcr) 600 mg PO Q12 [facility] Stop: 10/23/21 01:39 Last Admin: 09/25/21 09:31 Dose: 600 mg Documented by: Promethazine HCl 12.5 mg/ (Sodium Chloride) 50.5 mls @ 202 mls/hr IV Q6H PRN PRN Reason: Nausea And Vomiting Stop: 10/23/21 01:39 Piperacillin Sod/Tazobactam (Sod 4.5 gm/ Dextrose) 120 mls @ 30 mls/hr IV Q8H YULI; Protocol Stop: 09/30/21 05:59 Last Infusion: 09/25/21 09:58 Dose: Infused Documented by: Insulin Aspart (Insulin Aspart Per Unit) 0 units SC ACHS [facility] Stop: 10/23/21 01:39 Last Admin: 09/25/21 09:29 Dose: 3 units Documented by: Insulin Glargine (Insulin Glargine Solostar 100 Units/Ml 3 Ml Pen) 15 units SQ HS [facility] Stop: 10/23/21 01:39 Last Admin: 09/24/21 21:00 Dose: 15 units Documented by: Isosorbide Dinitrate (Isosorbide Dinitrate 20 Mg Tab) 20 mg PO TID@0700,1200,1700 [facility] Stop: 10/23/21 06:59 Last Admin: 09/25/21 05:59 Dose: 20 mg Documented by: Metoprolol Succinate (Metoprolol Succ 50mg Ext Rel Tab) 150 mg PO BID [facility] Stop: 10/23/21 00:29 Last Admin: 09/25/21 09:31 Dose: 150 mg Documented by: Miscellaneous (Carbohydrates For Hypoglycemia ) 15 - 30 gm PO UD PRN PRN Reason: Hypoglycemia Protocol Stop: 10/23/21 01:39 Miscellaneous Information (Piperacill/Tazobac Consult Active) 1 ea N/A UD PRN PRN Reason: Consult Stop: 10/23/21 00:15 Multivitamins/Minerals (Cerovite Adv Formula Tab) 1 tab PO QAM [facility] Stop: 10/23/21 08:59 Last Admin: 09/25/21 09:31 Dose: 1 tab Documented by: Nitroglycerin (Nitroglycerin Sl 0.4 Mg/Tab Tab) 0.4 mg SL UD PRN PRN Reason: Chest Pain Stop: 10/23/21 01:39 Pantoprazole Sodium (Pantoprazole 40 Mg Tab) 40 mg PO BID [facility] Stop: 10/23/21 08:59 Last Admin: 09/25/21 09:31 Dose: 40 mg Documented by: Tamsulosin HCl (Tamsulosin Hcl 0.4 Mg Cap) 0.4 mg PO HS [facility] Stop: 10/23/21 20:59 Last Admin: 09/24/21 21:01 Dose: 0.4 mg Documented by: Tramadol HCl (Tramadol Hcl 50 Mg Tablet) 25 - 50 mg PO Q4H PRN PRN Reason: Pain Stop: 10/23/21 01:39 Warfarin Sodium (Warfarin Sod 5 Mg Tab) 5 mg PO DAILY@1600 [facility] Stop: 10/23/21 15:59 Last Admin: 09/24/21 15:43 Dose: 5 mg Documented by: (1) Fever Fever type: unspecified Qualified Code(s): R50.9 - Fever, unspecified
--- NOTE | 2021-09-25 16:34 | Hospitalist Progress Note ---
Date of Service September 25, 2021 Assessment & Plan (1) Sepsis: Plan: 61-year-old man with PMH of HFrEF 2/2 nonischemic CM [EF 30%, TTE 2021] s/p biventricular ICD/PPM, PAF on Coumadin, chronic LBBB, nonobstructive CAD, HTN, HLD, left lung mass [found on outpatient CT 2 months ago] s/p recent bronchoscopy/biopsy [on 09/21 at [place]], ZOFIA on CPAP, not on home oxygen, DM 2 insulin requiring, CKD [baseline creatinine 1.8], chronic anemia [baseline hemoglobin 8-9] presented to our ED 09/22 [per instruction of outpatient provider] with complaint of increasing cough [dry] and SOB associated with nausea/vomiting/fever with chills/sweating on the day of arrival. Patient has completed COVID-19 vaccination. Of note, in December 2019 he was treated for septic shock secondary to MSSA bacteremia secondary to left foot toe nonhealing wound/osteomyelitis. On 09/16/2021, patient underwent pacemaker exchange for pacemaker lead malfunction. Patient was seen in the ED the following day of procedure for fever and body aches when blood culture was drawn and patient sent home; 1 bottle came back positive for MSSA. He is being managed for the following: #. Sepsis POA: At admissionWBC elevated, pulse elevated, temperature elevated, HCAP suspected; and CXR w/ left basilar consolidation. #. Likely HCAP #. GPC Bacteremia Patient had recent pacer exchange followed by ED visit next day when blood culture was drawn and was came back positive for MSSA Sent back to ED 09/22 for further evaluation of MSSA bacteremia, repeat blood culture 09/22 in the ED again positive for MSSA Admitting CXR: Cardiomegaly and AICD with pulmonary vascular congestion. Left basilar consolidation likely pneumonia, radiographic follow-up for resolution needed. Admitting CTAP: No new acute findings. Sepsis likely secondary to HCAP [likely to recent bronchoscopy procedure/likely aspiration] and GPC bacteremia [likely secondary to recent pacer exchange vs lung biopsy] Vancomycin and cefepime given in the ED, Zosyn started 09/23 --> 09/25 ancef Cardiology on board due to recent pacer exchange and bacteremia, plan for MARGA to r/o IE on Tuesday. 09/24 ECHO: EF 35 to 40% no evidence of a mass or vegetation. f/u 09/24 blood culture ID evaluated, MARGA to r/o IE and duration of ATB therapy based on MARGA finding. c/w ancef, will need PICC line once bacteremia is cleared. #. Elevated troponin Flat trend at 0.07, likely secondary to sepsis. EKG at admission with paced rhythm. Pt w/ no chest pain #. Subtherapeutic INR Secondary to Coumadin being held from recent bronchoscopy INR presentation 1.2, trending up PT/INR daily #. Other chronic medical condition: HFrEF, status post biventricular ICD/PPM, PAF on Coumadin, DM 2 insulin requiring, HLD, HTN, CKD, chronic anemia Continue with/resume home medications as and when appropriate. Monitor and replete electrolytes as and when appropriate. Low hemoglobin, FOBT negative, follow-up with iron studies tomorrow, f/u HnH DVT prophylaxis. Coumadin INR goal between 2 and 3 Full code Admission and Anticipated Discharge Date Admission Date: September 23, 2021 Subjective Patient seen and examined at bedside as a follow-up of GPC bacteremia, sepsis, likely HCAP. Patient lying in bed, on room air, NAD, no new acute events overnight, patient reports feeling better. Patient remains afebrile. Patient eating okay and moving bowels okay. Patient denies any acute changes in bowel or bladder habit/reports improving fever and chills and sweating/denies any chest pain/palpitations/belly pain/other review of symptoms. Telemetry reviewed, was in paced rhythm overnight, had 10 beats of V. tach in again this morning. electrolytes reviewed and wnl. pt advised to bring his home CPAP machine. Physical Exam Physical Exam: GENERAL: Alert and oriented x3. NAD, on room air. HEENT: No pallor, no icterus. Pupils equal, round and reactive to light. Oral mucosa moist. NECK: No JVD, no neck masses. HEART: S1 and S2 heard. Regular rate and rhythm. No murmur, no gallop. RESPIRATORY SYSTEM: Normal AP diameter. No accessory muscle use. No wheezing, no crackles. ABDOMEN: Soft, bowel sounds present, nontender, no distention. CENTRAL NERVOUS SYSTEM: No facial droop. Speech is clear. Obeys simple commands. Moves extremities. EXTREMITIES: Trace BLE edema, no erythema seen. Left Chest/recent pacer insertion site: stitched, looks clean w/ no erythema and tenderness. Results & Data Results & Data ([facility]) Vital Signs (Past 12 Hours) Vital Signs Temp Pulse Pulse Resp BP BP Pulse Ox 09/25/21 16:06 36.3 C L 72 20 135/80 97 09/25/21 15:00 73 09/25/21 11:32 84 09/25/21 11:13 36.6 C 69 20 131/83 96 09/25/21 07:28 36.7 C 77 20 125/75 93 09/25/21 07:17 77 109/65 92 09/25/21 05:57 75 16 138/77 91
[2021-09-25] MEDS ORDERED: WARFARIN SOD 1 MG TAB PO ONE (17:00)
[2021-09-25] MEDS: WARFARIN SOD 5 MG TAB PO SCH (17:18)
[2021-09-25] MEDS: INSULIN GLARGINE SOLOSTAR 100 UNITS/ML 3 ML PEN SQ SCH (20:34)
[2021-09-25] MEDS: TAMSULOSIN HCL 0.4 MG CAP PO SCH (20:38)
[2021-09-25] MEDS: ceFAZolin 2000MG 2,000 MG/15 ML SYR IV SCH (20:39)
[2021-09-26] MEDS: ceFAZolin 2000MG 2,000 MG/15 ML SYR IV SCH ×3 (06:13→21:43)
[2021-09-26] MEDS: ISOSORBIDE DINITRATE 20 MG TAB PO SCH ×3 (06:13→16:52)
[2021-09-26 06:21] LABS: Hematocrit (blood only) 24.3 % (42-52); Hemoglobin 7.7 g/dL (14.0-18.0); Mean Corpuscular Hemoglobin 26.6 pg (25-34); Mean Corpuscular Hgb Conc 31.7 g/dL (32-36); Mean Corpuscular Volume 84.1 fL (80-100); Mean Platelet Volume 8.4 fL (7.4-10.4); Platelet Count 243 K/uL (130-400); RDW Coefficient of Variation 15.9 % (11.5-14.5); RDW Standard Deviation 49.3 fL (36.4-46.3); Red Blood Count 2.89 M/uL (4.7-6.1); White Blood Count 7.11 K/uL (4.8-10.8)
[2021-09-26 06:32] LABS: INR 1.9 (0.9-1.1); Prothrombin Time 19.2 Seconds (9.0-12.0)
[2021-09-26 06:52] LABS: BUN Creatinine Ratio 20.3 (10-20); Calcium 8.2 mg/dl (8.5-10.1); Creatinine Clr Calc Pharmacy 76.8 ml/min; Est GFR (African American) 61.7 ml/min; Est GFR (Non-African American) 53.2 ml/min; Phosphorus 3.6 mg/dl (2.5-4.9)
[2021-09-26 07:07] LABS: Ferritin 346.1 ng/ml (8-388)
[2021-09-26 07:13] LABS: Folate (Folic Acid) 18.74 ng/ml (>5.38)
[2021-09-26] MEDS: ATORVASTATIN 40 MG TAB PO SCH (08:42)
[2021-09-26] MEDS: FERROUS SULFATE 325 MG TAB PO SCH ×2 (08:43→21:40)
[2021-09-26] MEDS: FLUTICASONE/VILANTEROL 200/25MCG 14 PUFFS/INHALER INH SCH (08:43)
[2021-09-26] MEDS: EZETIMIBE 10 MG TABLET PO SCH (08:43)
[2021-09-26] MEDS: METOPROLOL SUCC 50MG EXT REL TAB PO SCH ×2 (08:44→21:39)
[2021-09-26] MEDS: guaiFENesin 600 MG TABCR PO SCH ×2 (08:44→21:41)
[2021-09-26] MEDS: CEROVITE ADV FORMULA TAB PO SCH (08:45)
[2021-09-26] MEDS: PANTOprazole 40 MG TAB PO SCH ×2 (08:45→21:40)
[2021-09-26] MEDS: INSULIN ASPART PER UNIT SC SCH ×4 (08:48→21:37)
--- NOTE | 2021-09-26 13:33 | Cardiology Progress Note ---
Date of Service September 26, 2021 Assessment & Plan (1) Fever: (2) Staphylococcus aureus bacteremia: Plan: -Longstanding history of nonischemic cardiomyopathy, left bundle branch block -03/2020: Insertion of biventricular pacemaker AICD, right atrial lead, right ventricular lead, coronary sinus lead -Nov, 2019, admitted with sepsis, sensitive staph aureus, felt to be due to diabetic foot wound, ultimately underwent amputation of the second toe of the left foot due to concerns of osteomyelitis by plain x-ray -09/16/2021: Biventricular pacemaker/AICD revision, with extraction of the coronary sinus lead, placement of a septal, His bundle lead, chronic right at rial lead, right ventricular leads placed in 2019 retained, generator change -09/17/2021, low-grade fever, 1/2 blood cultures positive for sensitive staph aureus -09/21/2021, bronchoscopy, GLH, work-up of recently noted 6 cm left lower lobe chest opacity, bronchial washings, cytology negative for infection, or evidence of malignancy. PET scan ordered, yet to be completed -09/23/2021 recurrent fever, 2/2 blood cultures positive for sensitive staph aureus A thorough history and physical exam was performed. Pacemaker pocket site is healing well, with no superficial evidence of infection. Patient denies any dental pain. As noted does have a history of left foot osteomyelitis, no skin breakdown noted on his feet, and no recent foot, neck, or back pain. Denies dysuria. Denies any discomfort in previous recent IV sites. Continue Ancef. This is the same antibiotic utilized to treat the sensitive staph aureus he was diagnosed with in 2019. Chronic anemia noted, typical hemoglobin in the range of 8-9, slightly worse this admission, but overall stable, continue Coumadin with caution due to anemia, concerns for possible SBE, INR 1.9 today. Proceed with MARGA, 09/28/2021. Admission and Anticipated Discharge Date Admission Date: September 23, 2021 Subjective Patient seen in follow-up of recent fever, sensitive staph aureus bacteremia. Patient feeling well. Denies any chest discomfort, shortness of breath, no subjective fever. Most recent objective fever took place on 09/22/2021, T-max of 38.6 C at 2116. Review of Systems Review of Systems: All systems reviewed & are unremarkable except as noted in HPI & below Physical Exam Physical Exam: Temp Pulse Resp BP Pulse Ox 36.6 C 78 21 146/87 H 98 09/26/21 11:05 09/26/21 11:05 09/26/21 11:05 09/26/21 11:05 09/26/21 11:05 Constitutional: WD/WN, vitals as above Respiratory: normal respiratory effort, lungs clear to auscultation Cardiovascular: RRR, no murmur, no edema Chest (Breasts): Additional Comments: Left infraclavicular device pocket, bandage over device removed, incision is clean dry and intact, no drainage, no erythema, no swelling. Gastrointestinal (Abdomen): normal bowel sounds, soft, nontender, no hepatosplenomegaly Skin: No signs of any superficial phlebitis, cellulitis at recent IV sites Feet observed bilaterally, no skin breakdown, erythema, or stigmata of peripheral embolic phenomenon. Neurologic: PERRL, EOMI, accommodation nl, no face palsy, no dysarthria Results & Data ([facility]) Vital Signs (Past 12 Hours) Vital Signs Temp Pulse Pulse Resp BP BP Pulse Ox 09/26/21 11:05 36.6 C 78 21 146/87 H 98 09/26/21 07:48 74 09/26/21 07:25 36.5 C 72 20 136/71 95 09/26/21 06:17 68 16 143/86 H 09/26/21 03:37 36.7 C 65 18 123/75 95 09/26/21 02:29 72 Laboratory Results Blood cultures, 09/17/2021: 1/2 + for sensitive staph aureus Blood cultures 09/22/2021: 2/2+ for sensitive staph aureus. Blood cultures 09/24/2021: No growth thus far Diagnostic Findings 10/27/2020: Cardiac catheterization, [facility], mild LAD disease, otherwise diffuse luminal irregularities, cardiomyopathy therefore deemed to be nonischemic Outpatient transthoracic echocardiogram, August,: Abnormal septal motion consistent with dyssynchrony, otherwise moderate to severe diffuse left ventricular hypokinesis, LVEF 30 to 34%, moderate LV chamber dilatation Longstanding history of underlying left bundle branch block, EKG dating back to 2016, QRS duration 186 ms (1) Fever Fever type: unspecified Qualified Code(s): R50.9 - Fever, unspecified
--- NOTE | 2021-09-26 13:56 | Anesthesiology Consultation ---
Date of Service September 26, 2021 Assessment & Plan Chart Review Chart Review: Acceptable Risk for Surgery and Patient NOT seen in Pre Admission Testing History Height/Weight Height: 6 ft Weight: 127.7 kg Allergies Allergy/AdvReac Type Severity Reaction Status Date / Time No Known Allergies Allergy Verified 09/22/21 22:30 Medications Home Medications Medication Instructions Recorded Confirmed Last Taken atorvastatin 80 mg tablet 80 mg PO QAM 11/26/19 09/22/21 05/08/20 05:00 fcaefgnh-[id number]-[id number] acid 400 1 tab PO QAM 11/26/19 09/22/21 05/07/20 08:00 mcg-vit K 20 mcg-lycop 300 mcg tablet (Men's Multivitamin) nitroglycerin 0.4 mg sublingual 0.4 mg SUBLINGUAL UD PRN 11/26/19 09/22/21 Unknown tablet (Nitrostat) ferrous sulfate 325 mg (65 mg 325 mg PO BID 01/11/20 09/22/21 05/07/20 13:00 iron) tablet (Iron (ferrous sulfate)) furosemide 80 mg tablet 80 mg PO QAM 05/01/20 09/22/21 05/07/20 18:00 isosorbide dinitrate 20 mg tablet 20 mg PO TID 05/01/20 09/22/21 05/08/20 05:00 metoprolol succinate 100 mg 150 mg PO BID 05/01/20 09/22/21 05/08/20 05:00 tablet,extended release 24 hr pantoprazole 40 mg tablet,delayed 40 mg PO BID 05/01/20 09/22/21 05/07/20 18:00 release tamsulosin 0.4 mg capsule 0.4 mg PO HS 05/01/20 09/22/21 05/07/20 08:00 warfarin 4 mg tablet 4 - 6 mg PO UD 05/01/20 09/22/21 09/17/21 on hold/ procedures albuterol sulfate 90 mcg/actuation 2 puff INHALATION Q4 PRN 09/22/21 09/22/21 Unknown aerosol inhaler (Ventolin HFA) benzonatate 100 mg capsule 100 mg PO TID PRN 09/22/21 09/22/21 Unknown dulaglutide 4.5 mg/0.5 mL 4.5 mg SUBCUT WK 09/22/21 09/22/21 Unknown subcutaneous pen injector (Trulicity) ezetimibe 10 mg tablet 10 mg PO DAILY 09/22/21 09/22/21 Unknown fluticasone furoate 200 1 ea INHALATION QAM 09/22/21 09/22/21 Unknown mcg-vilanterol 25 mcg/dose inhalation powder (Breo Ellipta) insulin glargine 100 unit/mL (3 36 unit SUBCUT HS 09/22/21 09/22/21 Unknown mL) subcutaneous pen (Jaelaglprincess Lyons U-100 Insulin) metformin 500 mg tablet 500 mg PO BID 09/22/21 09/22/21 Unknown sacubitril 24 mg-valsartan 26 mg 1 tab PO BID 09/22/21 09/22/21 Unknown tablet (Entresto) Active Medications Generic Name Dose Route Start Last Admin Trade Name Freq PRN Reason Stop Dose Admin Atorvastatin Calcium 80 mg 09/23/21 09:00 09/26/21 08:42 Atorvastatin 40 Mg Tab PO 10/23/21 08:59 80 mg QAM YULI Administration Ezetimibe 10 mg 09/23/21 09:00 09/26/21 08:43 Ezetimibe 10 Mg Tablet PO 10/23/21 08:59 10 mg DAILY YULI Administration Ferrous Sulfate 325 mg 09/23/21 09:00 09/26/21 08:43 Ferrous Sulfate 325 Mg Tab PO 10/23/21 08:59 325 mg BID YULI Administration Fluticasone/Vilanterol 1 puffs 09/23/21 09:00 09/26/21 08:43 Fluticasone/Vilanterol 200/25mcg 14 Puffs/Inhaler INH 10/23/21 08:59 1 puffs QAM YULI Administration Guaifenesin 600 mg 09/23/21 01:40 09/26/21 08:44 Guaifenesin 600 Mg Tabcr PO 10/23/21 01:39 600 mg Q12 YULI Administration Cefazolin Sodium 2,000 mg in 15 mls @ 3.75 mls/min 09/25/21 22:00 09/26/21 14:30 Ancef 2000mg IV 11/06/21 21:59 3.75 mls/min Q8 YULI Administration Insulin Aspart 0 units 09/23/21 01:40 09/26/21 12:24 Insulin Aspart Per Unit SC 10/23/21 01:39 8 units ACHS YULI Administration Insulin Glargine 15 units 09/23/21 01:40 09/25/21 20:34 Insulin Glargine Solostar 100 Units/Ml 3 Ml Pen SQ 10/23/21 01:39 15 units HS YULI Administration Isosorbide Dinitrate 20 mg 09/23/21 07:00 09/26/21 12:24 Isosorbide Dinitrate 20 Mg Tab PO 10/23/21 06:59 20 mg TID@0700,1200,1700 YULI Administration Metoprolol Succinate 150 mg 09/23/21 00:30 09/26/21 08:44 Metoprolol Succ 50mg Ext Rel Tab PO 10/23/21 00:29 150 mg BID YULI Administration Multivitamins/Minerals 1 tab 09/23/21 09:00 09/26/21 08:45 Cerovite Adv Formula Tab PO 10/23/21 08:59 1 tab QAM YULI Administration Pantoprazole Sodium 40 mg 09/23/21 09:00 09/26/21 08:45 Pantoprazole 40 Mg Tab PO 10/23/21 08:59 40 mg BID YULI Administration Tamsulosin HCl 0.4 mg 09/23/21 21:00 09/25/21 20:38 Tamsulosin Hcl 0.4 Mg Cap PO 10/23/21 20:59 0.4 mg HS YULI Administration Warfarin Sodium 5 mg 09/23/21 16:00 09/25/21 17:18 Warfarin Sod 5 Mg Tab PO 10/23/21 15:59 5 mg DAILY@1600 YULI Administration Past Medical History Medical History (Updated 09/26/21 @ 13:36 by Edmund Coleman DO) Anemia Atrial fibrillation on warfarin, follows with Dr. Forbes Cardiomyopathy CHF (congestive heart failure) acute on chronic heart failure (12/2019 [facility] admission) "clinically improved" with brisk diuresis Diabetes mellitus, type 2 Diabetic neuropathy Dyslipidemia Hyperlipidemia Hypertension ICD (implantable cardioverter-defibrillator) in place meditronic placed 07/2019 Obesity Renal insufficiency Splenic infarct Past Family History Family History Father Heart disease Other No family history of adverse response to anesthesia Past Surgical History Surgical History History of cardiac cath 2019 @ [facility], no stents History of colonoscopy History of esophagogastroduodenoscopy (EGD) last done 01/15/2020 History of repair of left rotator cuff Presence of biventricular implantable cardioverter-defibrillator (ICD) Status post amputation of toe of left foot Status post amputation of toe of right foot Anton teeth extracted Social History Smoking Status: Never smoker Hx Alcohol Use: No Hx Substance Use: No substance use type: does not use Physical Exam Vital Signs Last Vital Signs Temp 36.6 C 09/26/21 11:05 Pulse 78 09/26/21 11:05 Resp 21 09/26/21 11:05 BP 146/87 H 09/26/21 11:05 Pulse Ox 98 09/26/21 11:05 Testing Laboratory Results 09/26/21 06:12 09/26/21 06:12 PT 19.2 Seconds (9.0-12.0) H 09/26/21 06:12 INR 1.9 (0.9-1.1) H 09/26/21 06:12 APTT 26.0 Seconds (21.0-31.0) 09/22/21 21:42 Urine Color Yellow 09/22/21 22:10 Urine Appearance Clear (Clear) 09/22/21 22:10 Urine pH 5.0 (4.5-7.5) 09/22/21 22:10 Ur Specific [place] 1.015 (1.000-1.030) 09/22/21 22:10 Urine Protein 2+ (Negative) H 09/22/21 22:10 Urine Glucose (UA) Negative (Negative) 09/22/21 22:10 Urine Ketones Negative (Negative) 09/22/21 22:10 Urine Nitrite Negative (Negative) 09/22/21 22:10 Ur Leukocyte Esterase Negative (Negative) 09/22/21 22:10 Urine WBC (Auto) 1-5 /hpf (0-5) 09/22/21 22:10 Urine RBC (Auto) 0-4 /hpf (0-4) 09/22/21 22:10 U Hyaline Cast (Auto) 5-10 /lpf (0-5) H 09/22/21 22:10 U Epithel Cells (Auto) 10-20 /lpf (0-5) H 09/22/21 22:10 Urine Bacteria (Auto) Negative (Negative) 09/22/21 22:10 09/24/21 17:56 Aerobic Blood Culture - Preliminary Blood No growth in Aerobic bottle after 24 hours. Anaerobic Blood Culture - Final 09/24/21 17:56 Aerobic Blood Culture - Preliminary Blood No growth in Aerobic bottle after 24 hours. Anaerobic Blood Culture - Preliminary No growth in Anaerobic bottle after 24 hours. 09/22/21 22:32 Aerobic Blood Culture - Final Blood Staphylococcus aureus Anaerobic Blood Culture - Final Staphylococcus aureus 09/22/21 21:42 Aerobic Blood Culture - Final Blood Staphylococcus aureus Anaerobic Blood Culture - Final Staphylococcus aureus 09/26/21 09/26/21 11:28 07:35 POC Glucose 194 H 115 H Echocardiogram Date: 09/24/21 EF: 35-40% LV Function: dysfunctional
--- NOTE | 2021-09-26 15:48 | Hospitalist Progress Note ---
Date of Service September 26, 2021 Assessment & Plan (1) Sepsis: Plan: 61-year-old man with PMH of HFrEF 2/2 nonischemic CM [EF 30%, TTE 2021] s/p biventricular ICD/PPM, PAF on Coumadin, chronic LBBB, nonobstructive CAD, HTN, HLD, left lung mass [found on outpatient CT 2 months ago] s/p recent bronchoscopy/biopsy [on 09/21 at [place]], ZOFIA on CPAP, not on home oxygen, DM 2 insulin requiring, CKD [baseline creatinine 1.8], chronic anemia [baseline hemoglobin 8-9] presented to our ED 09/22 [per instruction of outpatient provider] with complaint of increasing cough [dry] and SOB associated with nausea/vomiting/fever with chills/sweating on the day of arrival. Patient has completed COVID-19 vaccination. As per Cardiology documentation: -03/2020: Insertion of biventricular pacemaker AICD, right atrial lead, right ventricular lead, coronary sinus lead -Nov, 2019, admitted with sepsis, sensitive staph aureus, felt to be due to diabetic foot wound, ultimately underwent amputation of the second toe of the left foot due to concerns of osteomyelitis by plain x-ray -09/16/2021: Biventricular pacemaker/AICD revision, with extraction of the coronary sinus lead, placement of a septal, His bundle lead, chronic right atrial lead, right ventricular leads placed in 2019 retained, generator change -09/17/2021, low-grade fever, 1/2 blood cultures positive for sensitive staph aureus -09/21/2021, bronchoscopy, GLH, work-up of recently noted 6 cm left lower lobe ch est opacity, bronchial washings, cytology negative for infection, or evidence of malignancy. PET scan ordered, yet to be completed -09/23/2021 recurrent fever, 2/2 blood cultures positive for sensitive staph aureus No evidence of foot or toe ulcerations, pain, redness or any inflammation of the joints. He is being managed for the following: Sepsis POA: At admissionWBC elevated, pulse elevated, temperature elevated, HCAP suspected; and CXR w/ left basilar consolidation. Likely HCAP GPC Bacteremia Patient had recent pacer exchange followed by ED visit next day when blood culture was drawn and was came back positive for MSSA Sent back to ED 09/22 for further evaluation of MSSA bacteremia, repeat blood culture 09/22 in the ED again positive for MSSA Admitting CXR: Cardiomegaly and AICD with pulmonary vascular congestion. Left basilar consolidation likely pneumonia, radiographic follow-up for resolution needed. Admitting CTAP: No new acute findings. Sepsis likely secondary to HCAP [likely to recent bronchoscopy procedure/likely aspiration] and GPC bacteremia [likely secondary to recent pacer exchange vs lung biopsy] Vancomycin and cefepime given in the ED, Zosyn started 09/23 --> 09/25 ancef 09/24 ECHO: EF 35 to 40% no evidence of a mass or vegetation. f/u 09/24 blood culture Cardiology on board due to recent pacer exchange and bacteremia, plan for MARGA to r/o IE on Tuesday. ID evaluated, MARGA to r/o IE and duration of ATB therapy based on MARGA finding. c/w ancef Elevated troponin Flat trend at 0.07, likely secondary to sepsis. EKG at admission with paced rhythm. Pt w/ no chest pain Subtherapeutic INR Secondary to Coumadin being held from recent bronchoscopy INR presentation 1.2, trending up PT/INR daily-INR is 1.9 as of 09/26/2021 Other chronic medical condition: HFrEF, status post biventricular ICD/PPM, PAF on Coumadin, DM 2 insulin requiring, HLD, HTN, CKD, chronic anemia Continue with/resume home medications as and when appropriate. Monitor and replete electrolytes as and when appropriate. Low hemoglobin, FOBT negative, follow-up with iron studies tomorrow, f/u HnH DVT prophylaxis. Coumadin INR goal between 2 and 3 Full code Admission and Anticipated Discharge Date Admission Date: September 23, 2021 Subjective 09/26/2021 The patient was seen and examined in medical telemetry unit He remains stable without any significant symptoms Review of Systems Review of Systems: All systems reviewed and are unremarkable except as noted below Physical Exam Physical Exam: Lying in bed comfortably Constitutional: well developed, well nourished and + obese; not ill appearing Eyes: PERRL, conjunctivae normal, anicteric sclerae ENMT: external ear and nose normal, oropharynx normal Neck: trachea midline, no thyromegaly Respiratory: no respiratory distress Auscultation: lungs clear to auscultation bilaterally; no crackles Cardiovascular: Rate/Rhythm: regular rate and regular rhythm; not tachycardic Heart Sounds: normal S1, normal S2 and + murmur (2/6 ESM over precordium) E xtremities: no edema Gastrointestinal (Abdomen): Inspection/Auscultation: abdomen not distended Percussion/Palpation: abdomen soft; abdomen nontender Musculoskeletal: No acute arthritis in any joint Neurologic: Alert, awake and oriented x3 Results & Data Results & Data ([facility]) Vital Signs (Past 12 Hours) Vital Signs Temp Pulse Pulse Resp BP Pulse Ox 09/26/21 14:58 36.6 C 77 19 136/77 94 09/26/21 11:05 36.6 C 78 21 146/87 H 98 09/26/21 07:48 74 09/26/21 07:25 36.5 C 72 20 136/71 95 09/26/21 06:17 68 16 143/86 H Laboratory Results Short CBC 09/26/21 Range/Units 06:12 WBC 7.11 (4.8-10.8) K/uL Hgb 7.7 L (14.0-18.0) g/dL Hct 24.3 L (42-52) % Plt Count 243 (130-400) K/uL BMP 09/26/21 06:12 Sodium 139 Potassium 4.0 Chloride 112 H Carbon Dioxide 23 BUN 29 H Creatinine 1.43 H Glucose 98 Calcium 8.2 L Medications Administered Current Inpatient Medications Acetaminophen (Acetaminophen 325 Mg Tab) 650 mg PO Q4H PRN PRN Reason: Pain or Fever Stop: 10/23/21 01:39 Atorvastatin Calcium (Atorvastatin 40 Mg Tab) 80 mg PO QAM YULI Stop: 10/23/21 08:59 Last Admin: 09/26/21 08:42 Dose: 80 mg Documented by: Dextrose (Dextrose 50% 50 Ml Syringe) 25 - 50 ml IV UD PRN; Protocol PRN Reason: Hypoglycemia Protocol Stop: 10/23/21 01:39 Ezetimibe (Ezetimibe 10 Mg Tablet) 10 mg PO DAILY YULI Stop: 10/23/21 08:59 Last Admin: 09/26/21 08:43 Dose: 10 mg Documented by: Ferrous Sulfate (Ferrous Sulfate 325 Mg Tab) 325 mg PO BID YULI Stop: 10/23/21 08:59 Last Admin: 09/26/21 08:43 Dose: 325 mg Documented by: Fluticasone/Vilanterol (Fluticasone/Vilanterol 200/25mcg 14 Puffs/Inhaler) 1 puffs INH QAM [facility] Stop: 10/23/21 08:59 Last Admin: 09/26/21 08:43 Dose: 1 puffs Documented by: Glucagon (Glucagon For Inj 1 Mg Vial) 1 mg SQ UD PRN; Protocol PRN Reason: Hypoglycemia Protocol Stop: 10/23/21 01:39 Glucose (Glucose 10 Tabs/Tube) 4 - 8 tabs PO UD PRN; Protocol PRN Reason: Hypoglycemia Protocol Stop: 10/23/21 01:39 Glucose (Glucose 40% Gel 15 Gm Tube) 15 - 30 gm PO UD PRN; Protocol PRN Reason: Hypoglycemia Protocol Stop: 10/23/21 01:39 Guaifenesin (Guaifenesin 600 Mg Tabcr) 600 mg PO Q12 [facility] Stop: 10/23/21 01:39 Last Admin: 09/26/21 08:44 Dose: 600 mg Documented by: Promethazine HCl 12.5 mg/ (Sodium Chloride) 50.5 mls @ 202 mls/hr IV Q6H PRN PRN Reason: Nausea And Vomiting Stop: 10/23/21 01:39 Cefazolin Sodium (Ancef 2000mg) 2,000 mg in 15 mls @ 3.75 mls/min IV Q8 [facility] Stop: 11/06/21 21:59 Last Admin: 09/26/21 14:30 Dose: 3.75 mls/min Documented by: Insulin Aspart (Insulin Aspart Per Unit) 0 units SC ACHS [facility] Stop: 10/23/21 01:39 Last Admin: 09/26/21 12:24 Dose: 8 units Documented by: Insulin Glargine (Insulin Glargine Solostar 100 Units/Ml 3 Ml Pen) 15 units SQ HS [facility] Stop: 10/23/21 01:39 Last Admin: 09/25/21 20:34 Dose: 15 units Documented by: Isosorbide Dinitrate (Isosorbide Dinitrate 20 Mg Tab) 20 mg PO TID@0700,1200,1700 [facility] Stop: 10/23/21 06:59 Last Admin: 09/26/21 12:24 Dose: 20 mg Documented by: Metoprolol Succinate (Metoprolol Succ 50mg Ext Rel Tab) 150 mg PO BID YULI Stop: 10/23/21 00:29 Last Admin: 09/26/21 08:44 Dose: 150 mg Documented by: Miscellaneous (Carbohydrates For Hypoglycemia ) 15 - 30 gm PO UD PRN PRN Reason: Hypoglycemia Protocol Stop: 10/23/21 01:39 Multivitamins/Minerals (Cerovite Adv Formula Tab) 1 tab PO QAM YULI Stop: 10/23/21 08:59 Last Admin: 09/26/21 08:45 Dose: 1 tab Documented by: Nitroglycerin (Nitroglycerin Sl 0.4 Mg/Tab Tab) 0.4 mg SL UD PRN PRN Reason: Chest Pain Stop: 10/23/21 01:39 Pantoprazole Sodium (Pantoprazole 40 Mg Tab) 40 mg PO BID YULI Stop: 10/23/21 08:59 Last Admin: 09/26/21 08:45 Dose: 40 mg Documented by: Tamsulosin HCl (Tamsulosin Hcl 0.4 Mg Cap) 0.4 mg PO HS [facility] Stop: 10/23/21 20:59 Last Admin: 09/25/21 20:38 Dose: 0.4 mg Documented by: Tramadol HCl (Tramadol Hcl 50 Mg Tablet) 25 - 50 mg PO Q4H PRN PRN Reason: Pain Stop: 10/23/21 01:39 Warfarin Sodium (Warfarin Sod 5 Mg Tab) 5 mg PO DAILY@1600 [facility] Stop: 10/23/21 15:59 Last Admin: 09/25/21 17:18 Dose: 5 mg Documented by:
[2021-09-26] MEDS: WARFARIN SOD 5 MG TAB PO SCH (16:52)
[2021-09-26] MEDS: INSULIN GLARGINE SOLOSTAR 100 UNITS/ML 3 ML PEN SQ SCH (21:38)
[2021-09-26] MEDS: TAMSULOSIN HCL 0.4 MG CAP PO SCH (21:39)
[2021-09-27] MEDS: ceFAZolin 2000MG 2,000 MG/15 ML SYR IV SCH ×3 (05:59→21:20)
[2021-09-27] MEDS: ISOSORBIDE DINITRATE 20 MG TAB PO SCH ×3 (06:00→17:09)
[2021-09-27 07:27] LABS: BUN Creatinine Ratio 19.2 (10-20); Calcium 8.1 mg/dl (8.5-10.1); Creatinine Clr Calc Pharmacy 91.4 ml/min; Est GFR (African American) 76.3 ml/min; Est GFR (Non-African American) 65.8 ml/min
[2021-09-27 07:36] LABS: INR 2.1 (0.9-1.1); Prothrombin Time 21.5 Seconds (9.0-12.0)
[2021-09-27] MEDS: INSULIN ASPART PER UNIT SC SCH ×4 (08:39→21:17)
[2021-09-27] MEDS: EZETIMIBE 10 MG TABLET PO SCH (08:41)
[2021-09-27] MEDS: METOPROLOL SUCC 50MG EXT REL TAB PO SCH ×2 (08:41→21:14)
[2021-09-27] MEDS: CEROVITE ADV FORMULA TAB PO SCH (08:41)
[2021-09-27] MEDS: ATORVASTATIN 40 MG TAB PO SCH (08:41)
[2021-09-27] MEDS: PANTOprazole 40 MG TAB PO SCH ×2 (08:41→21:15)
[2021-09-27] MEDS: FLUTICASONE/VILANTEROL 200/25MCG 14 PUFFS/INHALER INH SCH (08:41)
[2021-09-27] MEDS: guaiFENesin 600 MG TABCR PO SCH ×2 (08:41→21:14)
[2021-09-27] MEDS: FERROUS SULFATE 325 MG TAB PO SCH ×2 (08:42→21:12)
--- NOTE | 2021-09-27 13:45 | Hospitalist Progress Note ---
Date of Service September 27, 2021 Assessment & Plan (1) Sepsis: Plan: 61-year-old man with PMH of HFrEF 2/2 nonischemic CM [EF 30%, TTE 2021] s/p biventricular ICD/PPM, PAF on Coumadin, chronic LBBB, nonobstructive CAD, HTN, HLD, left lung mass [found on outpatient CT 2 months ago] s/p recent bronchoscopy/biopsy [on 09/21 at [place]], ZOFIA on CPAP, not on home oxygen, DM 2 insulin requiring, CKD [baseline creatinine 1.8], chronic anemia [baseline hemoglobin 8-9] presented to our ED 09/22 [per instruction of outpatient provider] with complaint of increasing cough [dry] and SOB associated with nausea/vomiting/fever with chills/sweating on the day of arrival. Patient has completed COVID-19 vaccination. As per Cardiology documentation: -03/2020: Insertion of biventricular pacemaker AICD, right atrial lead, right ventricular lead, coronary sinus lead -Nov, 2019, admitted with sepsis, sensitive staph aureus, felt to be due to diabetic foot wound, ultimately underwent amputation of the second toe of the left foot due to concerns of osteomyelitis by plain x-ray -09/16/2021: Biventricular pacemaker/AICD revision, with extraction of the coronary sinus lead, placement of a septal, His bundle lead, chronic right atrial lead, right ventricular leads placed in 2019 retained, generator change -09/17/2021, low-grade fever, 1/2 blood cultures positive for sensitive staph aureus -09/21/2021, bronchoscopy, GLH, work-up of recently noted 6 cm left lower lobe ch est opacity, bronchial washings, cytology negative for infection, or evidence of malignancy. PET scan ordered, yet to be completed -09/23/2021 recurrent fever, 2/2 blood cultures positive for sensitive staph aureus No evidence of foot or toe ulcerations, pain, redness or any inflammation of the joints. He is being managed for the following: Sepsis POA: At admissionWBC elevated, pulse elevated, temperature elevated, HCAP suspected; and CXR w/ left basilar consolidation. Likely HCAP GPC Bacteremia Patient had recent pacer exchange followed by ED visit next day when blood culture was drawn and was came back positive for MSSA Sent back to ED 09/22 for further evaluation of MSSA bacteremia, repeat blood culture 09/22 in the ED again positive for MSSA Admitting CXR: Cardiomegaly and AICD with pulmonary vascular congestion. Left basilar consolidation likely pneumonia, radiographic follow-up for resolution needed. Admitting CTAP: No new acute findings. Sepsis likely secondary to HCAP [likely to recent bronchoscopy procedure/likely aspiration] and GPC bacteremia [likely secondary to recent pacer exchange vs lung biopsy] Vancomycin and cefepime given in the ED, Zosyn started 09/23 --> 09/25 Ancef 09/24 ECHO: EF 35 to 40% no evidence of a mass or vegetation. f/u 09/24 blood culture-remain negative Cardiology on board due to recent pacer exchange and bacteremia, plan for MARGA to r/o IE on Tuesday. ID evaluated, MARGA to r/o IE and duration of ATB therapy based on MARGA finding. We will continue intravenous Ancef Elevated troponin Flat trend at 0.07, likely secondary to sepsis. EKG at admission with paced rhythm. Pt w/ no chest pain Subtherapeutic INR Secondary to Coumadin being held from recent bronchoscopy INR presentation 1.2, trending up PT/INR daily-INR is 1.9 as of 09/26/2021 INR remains therapeutic Other chronic medical condition: HFrEF, status post biventricular ICD/PPM, PAF on Coumadin, DM 2 insulin requiring, HLD, HTN, CKD, chronic anemia Continue with/resume home medications as and when appropriate. Monitor and replete electrolytes as and when appropriate. Low hemoglobin, FOBT negative, follow-up with iron studies tomorrow, f/u HnH DVT prophylaxis. Coumadin INR goal between 2 and 3 Full code Admission and Anticipated Discharge Date Admission Date: September 23, 2021 Subjective 09/26/2021 The patient was seen and examined in medical telemetry unit He remains stable without any significant symptoms 09/27/2021 The patient was seen and examined in medical telemetry unit He remains stable without any symptoms He will have a MARGA tomorrow Review of Systems Review of Systems: All systems reviewed and are unremarkable except as noted below Physical Exam Physical Exam: Lying in bed comfortably Constitutional: well developed, well nourished and + obese; not ill appearing Eyes: PERRL, conjunctivae normal, anicteric sclerae ENMT: external ear and nose normal, oropharynx normal Neck: trachea midline, no thyromegaly Respiratory: no respiratory distress Auscultation: lungs clear to auscultation bilaterally; no crackles Cardiovascular: Rate/Rhythm: regular rate and regular rhythm; not tachycardic Heart Sounds: normal S1, normal S2 and + murmur (2/6 ESM over precordium) Extremities: no edema Gastrointestinal (Abdomen): Inspection/Auscultation: abdomen not distended Percussion/Palpation: abdomen soft; abdomen nontender Musculoskeletal: No acute arthritis involving any joint and there is no pain involving the feet or toes Neurologic: Alert, awake and oriented x3. No focal sensory and motor deficit appreciated Results & Data Results & Data ([facility]) Vital Signs (Past 12 Hours) Vital Signs Temp Pulse Pulse Resp BP BP Pulse Ox 09/27/21 10:54 36.3 C L 73 20 161/96 H 96 09/27/21 08:00 36.4 C L 67 20 163/90 H 94 09/27/21 06:10 72 09/27/21 04:00 36.4 C L 71 18 145/68 H 93 Laboratory Results [facility] 09/27/21 06:37 Sodium 139 Potassium 4.0 Chloride 114 H Carbon Dioxide 23 BUN 23 Creatinine 1.20 Glucose 110 H Calcium 8.1 L Medications Administered Current Inpatient Medications Acetaminophen (Acetaminophen 325 Mg Tab) 650 mg PO Q4H PRN PRN Reason: Pain or Fever Stop: 10/23/21 01:39 Atorvastatin Calcium (Atorvastatin 40 Mg Tab) 80 mg PO QAM YULI Stop: 10/23/21 08:59 Last Admin: 09/27/21 08:41 Dose: 80 mg Documented by: Dextrose (Dextrose 50% 50 Ml Syringe) 25 - 50 ml IV UD PRN; Protocol PRN Reason: Hypoglycemia Protocol Stop: 10/23/21 01:39 Ezetimibe (Ezetimibe 10 Mg Tablet) 10 mg PO DAILY YULI Stop: 10/23/21 08:59 Last Admin: 09/27/21 08:41 Dose: 10 mg Documented by: Ferrous Sulfate (Ferrous Sulfate 325 Mg Tab) 325 mg PO BID YULI Stop: 10/23/21 08:59 Last Admin: 09/27/21 08:42 Dose: 325 mg Documented by: Fluticasone/Vilanterol (Fluticasone/Vilanterol 200/25mcg 14 Puffs/Inhaler) 1 puffs INH QAM [facility] Stop: 10/23/21 08:59 Last Admin: 09/27/21 08:41 Dose: 1 puffs Documented by: Glucagon (Glucagon For Inj 1 Mg Vial) 1 mg SQ UD PRN; Protocol PRN Reason: Hypoglycemia Protocol Stop: 10/23/21 01:39 Glucose (Glucose 10 Tabs/Tube) 4 - 8 tabs PO UD PRN; Protocol PRN Reason: Hypoglycemia Protocol Stop: 10/23/21 01:39 Glucose (Glucose 40% Gel 15 Gm Tube) 15 - 30 gm PO UD PRN; Protocol PRN Reason: Hypoglycemia Protocol Stop: 10/23/21 01:39 Guaifenesin (Guaifenesin 600 Mg Tabcr) 600 mg PO Q12 [facility] Stop: 10/23/21 01:39 Last Admin: 09/27/21 08:41 Dose: 600 mg Documented by: Promethazine HCl 12.5 mg/ (Sodium Chloride) 50.5 mls @ 202 mls/hr IV Q6H PRN PRN Reason: Nausea And Vomiting Stop: 10/23/21 01:39 Cefazolin Sodium (Ancef 2000mg) 2,000 mg in 15 mls @ 3.75 mls/min IV Q8 [facility] Stop: 11/06/21 21:59 Last Admin: 09/27/21 05:59 Dose: 3.75 mls/min Documented by: Insulin Aspart (Insulin Aspart Per Unit) 0 units SC ACHS [facility] Stop: 10/23/21 01:39 Last Admin: 09/27/21 12:30 Dose: 4 units Documented by: Insulin Glargine (Insulin Glargine Solostar 100 Units/Ml 3 Ml Pen) 15 units SQ HS [facility] Stop: 10/23/21 01:39 Last Admin: 09/26/21 21:38 Dose: 15 units Documented by: Isosorbide Dinitrate (Isosorbide Dinitrate 20 Mg Tab) 20 mg PO TID@0700,1200,1700 [facility] Stop: 10/23/21 06:59 Last Admin: 09/27/21 12:30 Dose: 20 mg Documented by: Metoprolol Succinate (Metoprolol Succ 50mg Ext Rel Tab) 150 mg PO BID [facility] Stop: 10/23/21 00:29 Last Admin: 09/27/21 08:41 Dose: 150 mg Documented by: Miscellaneous (Carbohydrates For Hypoglycemia ) 15 - 30 gm PO UD PRN PRN Reason: Hypoglycemia Protocol Stop: 10/23/21 01:39 Multivitamins/Minerals (Cerovite Adv Formula Tab) 1 tab PO QAM YULI Stop: 10/23/21 08:59 Last Admin: 09/27/21 08:41 Dose: 1 tab Documented by: Nitroglycerin (Nitroglycerin Sl 0.4 Mg/Tab Tab) 0.4 mg SL UD PRN PRN Reason: Chest Pain Stop: 10/23/21 01:39 Pantoprazole Sodium (Pantoprazole 40 Mg Tab) 40 mg PO BID YULI Stop: 10/23/21 08:59 Last Admin: 09/27/21 08:41 Dose: 40 mg Documented by: Tamsulosin HCl (Tamsulosin Hcl 0.4 Mg Cap) 0.4 mg PO HS YULI Stop: 10/23/21 20:59 Last Admin: 09/26/21 21:39 Dose: 0.4 mg Documented by: Tramadol HCl (Tramadol Hcl 50 Mg Tablet) 25 - 50 mg PO Q4H PRN PRN Reason: Pain Stop: 10/23/21 01:39 Warfarin Sodium (Warfarin Sod 5 Mg Tab) 5 mg PO DAILY@1600 [facility] Stop: 10/23/21 15:59 Last Admin: 09/26/21 16:52 Dose: 5 mg Documented by:
--- NOTE | 2021-09-27 14:03 | Cardiology Progress Note ---
Date of Service September 27, 2021 Assessment & Plan (1) Fever: (2) Staphylococcus aureus bacteremia: Plan: -Longstanding history of nonischemic cardiomyopathy, left bundle branch block -03/2020: Insertion of biventricular pacemaker AICD, right atrial lead, right ventricular lead, coronary sinus lead -Nov, 2019, admitted with sepsis, sensitive staph aureus, felt to be due to diabetic foot wound, ultimately underwent amputation of the second toe of the left foot due to concerns of osteomyelitis by plain x-ray -09/16/2021: Biventricular pacemaker/AICD revision, with extraction of the coronary sinus lead, placement of a septal, His bundle lead, chronic right atrial lead, right ventricular leads placed in 2019 retained, generator change -09/17/2021, low-grade fever, 1/2 blood cultures positive for sensitive staph aureus -09/21/2021, bronchoscopy, GLH, work-up of recently noted 6 cm left lower lobe chest opacity, bronchial washings, cytology negative for infection, or evidence of malignancy. PET scan ordered, yet to be completed -09/22/2021 recurrent fever, 2/2 blood cultures positive for sensitive staph aureus -09/24/21: 2/2 blood cultures obtained on antibiotics, no growth thus far. A thorough history and physical exam was performed. Pacemaker pocket site is healing well, with no superficial evidence of infection. Patient denies any dental pain. As noted does have a history of left foot osteomyelitis, no skin breakdown noted on his feet, and no recent foot, neck, or back pain. Denies dysuria. Denies any discomfort in previous recent IV sites. Continue Ancef. This is the same antibiotic utilized to treat the sensitive staph aureus he was diagnosed with in 2019. Chronic anemia noted, typical hemoglobin in the range of 8-9, slightly worse this admission, but overall stable, continue Coumadin with caution due to anemia, concerns for possible SBE, INR 2.1 today. Proceed with MARGA, 09/28/2021. Continue Coumadin. NPO after midnight. Informed consent obtained and form is on paper chart. Admission and Anticipated Discharge Date Admission Date: September 23, 2021 Subjective Mr Lopez is seen in follow up of recent fever, and bacteremia. Telemetry reveals SR with ventricular pacing in the 70s. Pt feels well subjectively. No fevers or chills. No aches or pains. Afebrile on vital signs. Physical Exam Constitutional: WD/WN, vitals as above Respiratory: normal respiratory effort, lungs clear to auscultation Cardiovascular: RRR, no murmur, no edema Gastrointestinal (Abdomen): normal bowel sounds, soft, nontender, no hepatospl enomegaly Neurologic: PERRL, EOMI, accommodation nl, no face palsy, no dysarthria Results & Data ([facility]) Vital Signs (Past 12 Hours) Vital Signs Temp Pulse Pulse Resp BP BP Pulse Ox 09/27/21 10:54 36.3 C L 73 20 161/96 H 96 09/27/21 08:00 36.4 C L 67 20 163/90 H 94 09/27/21 06:10 72 09/27/21 04:00 36.4 C L 71 18 145/68 H 93 Laboratory Results Coagulation 09/27/21 Range/Units 06:37 PT 21.5 H (9.0-12.0) Seconds Comprehensive Metabolic Panel 09/27/21 Range/Units 06:37 Sodium 139 (136-145) mmol/L Potassium 4.0 (3.5-5.1) mmol/L Chloride 114 H (98-107) mmol/L Carbon Dioxide 23 (21-32) mmol/L BUN 23 (6-23) mg/dl Creatinine 1.20 (0.6-1.4) mg/dl Glucose 110 H (70-99(Fasting)) mg/dl Calcium 8.1 L (8.5-10.1) mg/dl Intake and Output 09/26/21 09/27/21 09/27/21 22:59 06:59 14:59 Intake Total 240 / 480 240 / 480 510 / 510 Output Total Balance 240 / 480 240 / 480 509 / 509 Intake: Oral 240 / 480 240 / 480 510 / 510 Output: # Bowel Movements Other: Weight 127.3 kg Weight Measurement Method Standing Scale (1) Fever Fever type: unspecified Qualified Code(s): R50.9 - Fever, unspecified
[2021-09-27] MEDS: WARFARIN SOD 5 MG TAB PO SCH (17:09)
[2021-09-27] MEDS: INSULIN GLARGINE SOLOSTAR 100 UNITS/ML 3 ML PEN SQ SCH (21:12)
[2021-09-27] MEDS: TAMSULOSIN HCL 0.4 MG CAP PO SCH (21:13)
[2021-09-28] MEDS: ISOSORBIDE DINITRATE 20 MG TAB PO SCH ×3 (05:41→17:11)
[2021-09-28] MEDS: ceFAZolin 2000MG 2,000 MG/15 ML SYR IV SCH ×3 (05:42→22:32)
[2021-09-28 07:14] LABS: Basophils # (auto) 0.04 K/uL (0-0.2); Basophils % (auto) 0.5 %; Eosinophils % (auto) 1.3 %; Hematocrit (blood only) 23.1 % (42-52); Hemoglobin 7.4 g/dL (14.0-18.0); Immature Granulocytes # (auto) 0.09 K/uL (0.00-0.02); Immature Granulocytes % (auto) 1.2 %; Lymphocytes # (auto) 1.66 K/uL (1.2-3.4); Mean Corpuscular Hemoglobin 26.8 pg (25-34); Mean Corpuscular Volume 83.7 fL (80-100); Mean Platelet Volume 8.4 fL (7.4-10.4); Monocytes # (auto) 0.46 K/uL (0.11-0.59); Monocytes % (auto) 6.1 %; Neutrophils # (auto) 5.18 K/uL (1.4-6.5); Neutrophils % (auto) 68.9 %; Platelet Count 276 K/uL (130-400); RDW Coefficient of Variation 15.9 % (11.5-14.5); RDW Standard Deviation 48.3 fL (36.4-46.3); Red Blood Count 2.76 M/uL (4.7-6.1); White Blood Count 7.53 K/uL (4.8-10.8)
[2021-09-28] MEDS ORDERED: BENZOCAINE/TETRACAIN/BUTAM 50 APPLN/5 GM CAN EXT ONE (07:23)
[2021-09-28 07:25] LABS: Prothrombin Time 20.9 Seconds (9.0-12.0)
[2021-09-28 07:40] LABS: Poikilocytosis Present; Polychromasia 1+
[2021-09-28 07:42] LABS: BUN Creatinine Ratio 17.5 (10-20); Calcium 8.1 mg/dl (8.5-10.1); Creatinine Clr Calc Pharmacy 96.2 ml/min; Est GFR (African American) 81.1 ml/min; Potassium 3.9 mmol/L (3.5-5.1)
--- NOTE | 2021-09-28 07:54 | History & Physical Bridge Note ---
Date of Service September 28, 2021 History & Physical Bridge Note I have examined the patient, reviewed the History & Physical and in the interval since the performance of the History & Physical I have noted the following changes of clinical significance: no changes noted. Patient seen in cardiac center holding area. No events overnight. Informed consent obtained yesterday and written form is on paper chart. Proceed with MARGA.
[2021-09-28] MEDS ORDERED: PROPOFOL IV EMULSION 10 MG/ML 20 ML VIAL IV ONE (09:08)
--- NOTE | 2021-09-28 09:16 | Post Operative Brief Note ---
Cardiology Brief Post Op Date of Surgery September 28, 2021 Pre & Post Diagnosis Preprocedure diagnosis: bacteremia Post procedure diagnosis: Tricuspid valve vegetation, endocarditis Operation Date: 09/28/21 07:30 Procedure Transesophageal echocardiogram: The patient's vital signs were monitored via the standard fashion. After informed consent was obtained and timeout was performed the patient underwent transesophageal echocardiogram with sedation administered by the anesthesia service. Three cardiac device leas were well visualized and were without vegetation. There is a 1 cm x 1.1 cm echo density on the right atrial aspect of the tricuspid valve consistent with vegetation of undetermined acuity / chronicity, or perhaps is an off axis view demonstrating prolapse of the tricuspid valve leaflet. Given clinical presentation with recurrent staphylococcus aureus bacteremia (2019 and recently) endocarditis is suspected. There is moderate mitral regurgitation. The etiology of the mitral regurgitation is dilated cardiomyopathy with tethering of the mitral valve leaflets and dilatation of the mitral valve annulus with resultant central malcoaptation of the mitral valve. Moderate diffuse LV hypokinesis is present, LVEF 35-40%. Medications: Cetacaine spray, Propofol 250 mg IV, Lidocaine 20 mg IV, normal saline 200 ml. Assistant Plant Controller Edmund Coleman DO Credentialer QUYHN Jordan Estimated Blood Loss 0 Findings Consistent with Post-Op Diagnosis as noted above Anesthesia Type MAC Complications None
--- NOTE | 2021-09-28 09:33 | Anesthesiology Progress Note ---
Date of Service September 28, 2021 Anesthesia Post Procedure Vital Signs Vital Signs: Temp Pulse Pulse Resp BP BP Pulse Ox 09/28/21 09:30 64 15 134/82 95 09/28/21 09:20 65 15 131/64 95 09/28/21 09:15 63 15 138/78 95 09/28/21 09:10 67 15 139/76 94 09/28/21 09:05 68 15 142/77 H 99 09/28/21 07:21 70 09/28/21 07:19 67 17 142/84 H 99 09/28/21 04:00 36.7 C 75 18 150/80 H 94 09/28/21 01:04 67 09/28/21 00:03 36.7 C 64 18 154/86 H 93 09/27/21 20:04 36.5 C 68 18 161/88 H 96 09/27/21 15:25 36.4 C L 69 18 150/89 H 95 09/27/21 14:17 71 09/27/21 10:54 36.3 C L 73 20 161/96 H 96 Transfer of Care Handoff Completed per policy Notes Mental Status: alert / awake / arousable and participated in evaluation Patient Amnestic to Procedure: Yes Nausea / Vomiting: adequately controlled Pain: adequately controlled Airway Patency, RR, SpO2: stable & adequate BP & HR: stable & adequate Hydration State: stable & adequate Anesthetic Complications: no major complications apparent
[2021-09-28] MEDS: INSULIN ASPART PER UNIT SC SCH ×4 (09:58→21:46)
[2021-09-28] MEDS: PANTOprazole 40 MG TAB PO SCH ×2 (10:19→21:45)
[2021-09-28] MEDS: ATORVASTATIN 40 MG TAB PO SCH (10:19)
[2021-09-28] MEDS: guaiFENesin 600 MG TABCR PO SCH ×2 (10:19→21:44)
[2021-09-28] MEDS: FLUTICASONE/VILANTEROL 200/25MCG 14 PUFFS/INHALER INH SCH (10:19)
[2021-09-28] MEDS: CEROVITE ADV FORMULA TAB PO SCH (10:20)
[2021-09-28] MEDS: FERROUS SULFATE 325 MG TAB PO SCH ×2 (10:20→21:45)
[2021-09-28] MEDS: EZETIMIBE 10 MG TABLET PO SCH (10:20)
[2021-09-28] MEDS: METOPROLOL SUCC 50MG EXT REL TAB PO SCH ×2 (10:20→21:45)
[2021-09-28] MEDS ORDERED: VALSARTAN/SACUBITRIL 26/24MG TAB PO ONE (13:35)
--- NOTE | 2021-09-28 13:45 | Cardiology Progress Note ---
Date of Service September 28, 2021 Assessment & Plan (1) Fever: (2) Staphylococcus aureus bacteremia: (3) Biventricular automatic implantable cardioverter defibrillator in situ: (4) NICM (nonischemic cardiomyopathy): (5) Chronic HFrEF (heart failure with reduced ejection fraction): Plan: -Longstanding history of nonischemic cardiomyopathy, left bundle branch block -On 08/08/2019: Insertion of biventricular pacemaker AICD, right atrial lead, right ventricular lead, coronary sinus lead -Nov, 2019, admitted with sepsis, sensitive staph aureus, felt to be due to diabetic foot wound, ultimately underwent amputation of the second toe of the left foot due to concerns of osteomyelitis by plain x-ray -09/16/2021: Biventricular pacemaker/AICD revision, with extraction of the coronary sinus lead, placement of a septal, His bundle lead, chronic right atrial lead, right ventricular leads placed in 2019 retained, generator change -09/17/2021, low-grade fever, 1/2 blood cultures positive for sensitive staph aureus -09/21/2021, bronchoscopy, GLH, work-up of recently noted 6 cm left lower lobe chest opacity, bronchial washings, cytology negative for infection, or evidence of malignancy. PET scan ordered, yet to be completed -09/22/2021 recurrent fever, 2/2 blood cultures positive for sensitive staph aureus -09/24/21: 2/2 blood cultures obtained on antibiotics, no growth thus far. -09/28/21: MARGA, 3 lead without vegetation, + TV vegetation. * MARGA reveals 1 cm x 1.1 cm echodensity on the tricuspid valve that in taking the clinical presentation in mind is consistent with vegetation (less likely, off axis view of TV prolapse). * Case discussed at length with Dr Cardoza of EP and with Dr Avila of ID service at [facility] by phone. Calvin next step would be for device excision, temporary pacemaker bridge as patient felt to be pacemaker dependent, 6 weeks of IV antibiotics, with device re-implant a few days after extraction. * Pt however, felt to be at high risk for complication related to extraction. * Options discussed with patient, who prefers to avoid device extraction. * Will therefore proceed with alternative option of 6 weeks of IV Ancef, addition of Rifampin and close clinical follow up. * Repeat MARGA in 6 weeks. * If recurrent fever / bacteremia in meantime, will need to reassess benefit / risk of device extraction. -DC coumadin and transition to Eliquis to avoid labile INR readings in setting of Rifampin treatement. -Update LFTs tomorrow along with INR. Admission and Anticipated Discharge Date Admission Date: September 23, 2021 Subjective Patient seen in cardiology follow up of fever and staph aureus bacteremia. Patient assessed prior to, during, and then post transesophageal echocardiogram today. At time of follow-up after he had arrived back to the medical/surgical [facility], he noted feeling well, tolerated the procedure well. Denies subjective fevers or chills, no fever noted on his vital signs. Review of Systems Review of Systems: All systems reviewed & are unremarkable except as noted in HPI & below Physical Exam Constitutional: WD/WN, vitals as above Respiratory: normal respiratory effort, lungs clear to auscultation Cardiovascular: RRR, no murmur, no edema Gastrointestinal (Abdomen): normal bowel sounds, soft, nontender, no hepatosplenomegaly Neurologic: PERRL, EOMI, accommodation nl, no face palsy, no dysarthria Results & Data ([facility]) Vital Signs (Past 12 Hours) Vital Signs Temp Pulse Pulse Pulse Resp BP BP 09/28/21 12:18 36.7 C 70 15 172/88 H 09/28/21 11:15 36.6 C 60 15 148/82 H 09/28/21 10:15 36.4 C L 69 14 182/84 H 09/28/21 09:50 36.4 C L 67 15 158/86 H 09/28/21 09:30 64 15 134/82 09/28/21 09:20 65 15 131/64 09/28/21 09:15 63 15 138/78 09/28/21 09:10 67 15 139/76 09/28/21 09:05 68 15 142/77 H 09/28/21 07:21 70 09/28/21 07:19 67 17 142/84 H 09/28/21 04:00 36.7 C 75 18 150/80 H Pulse Ox 09/28/21 12:18 95 09/28/21 11:15 96 09/28/21 10:15 97 09/28/21 09:50 98 09/28/21 09:30 95 09/28/21 09:20 95 09/28/21 09:15 95 09/28/21 09:10 94 09/28/21 09:05 99 09/28/21 07:21 09/28/21 07:19 99 09/28/21 04:00 94 (1) Fever Fever type: unspecified Qualified Code(s): R50.9 - Fever, unspecified
--- NOTE | 2021-09-28 14:12 | Hospitalist Progress Note ---
Date of Service September 28, 2021 Assessment & Plan (1) Sepsis: Plan: 61-year-old man with PMH of HFrEF 2/2 nonischemic CM [EF 30%, TTE 2021] s/p biventricular ICD/PPM, PAF on Coumadin, chronic LBBB, nonobstructive CAD, HTN, HLD, left lung mass [found on outpatient CT 2 months ago] s/p recent bronchoscopy/biopsy [on 09/21 at [place]], ZOFIA on CPAP, not on home oxygen, DM 2 insulin requiring, CKD [baseline creatinine 1.8], chronic anemia [baseline hemoglobin 8-9] presented to our ED 09/22 [per instruction of outpatient provider] with complaint of increasing cough [dry] and SOB associated with nausea/vomiting/fever with chills/sweating on the day of arrival. Patient has completed COVID-19 vaccination. Infective endocarditis Status post MARGA which showed tricuspid valve vegetations without any evidence of leads vegetation The hardware engineer discussed the option of extraction and reimplantation of new device/conservative management for now Starting Gate Driver also discussed this with ID specialist he has been The patient is going to have conservative management for now PICC line will be placed and antibiotics will be given as per ID recommendation As per Cardiology documentation: -03/2020: Insertion of biventricular pacemaker AICD, right atrial lead, right ventricular lead, coronary sinus lead -Nov, 2019, admitted with sepsis, sensitive staph aureus, felt to be due to diabetic foot wound, ultimately underwent amputation of the second toe of the left foot due to concerns of osteomyelitis by plain x-ray -09/16/2021: Biventricular pacemaker/AICD revision, with extraction of the coronary sinus lead, placement of a septal, His bundle lead, chronic right atrial lead, right ventricular leads placed in 2019 retained, generator change -09/17/2021, low-grade fever, 1/2 blood cultures positive for sensitive staph aureus -09/21/2021, bronchoscopy, GLH, work-up of recently noted 6 cm left lower lobe chest opacity, bronchial washings, cytology negative for infection, or evidence of malignancy. PET scan ordered, yet to be completed -09/23/2021 recurrent fever, 2/2 blood cultures positive for sensitive staph aureus No evidence of foot or toe ulcerations, pain, redness or any inflammation of the joints. He is being managed for the following: Sepsis POA: At admissionWBC elevated, pulse elevated, temperature elevated, HCAP suspected; and CXR w/ left basilar consolidation. Likely HCAP GPC Bacteremia Patient had recent pacer exchange followed by ED visit next day when blood culture was drawn and was came back positive for MSSA Sent back to ED 09/22 for further evaluation of MSSA bacteremia, repeat blood culture 09/22 in the ED again positive for MSSA Admitting CXR: Cardiomegaly and AICD with pulmonary vascular congestion. Left basilar consolidation likely pneumonia, radiographic follow-up for resolution needed. Admitting CTAP: No new acute findings. Sepsis likely secondary to HCAP [likely to recent bronchoscopy procedure/likely aspiration] and GPC bacteremia [likely secondary to recent pacer exchange vs lung biopsy] Vancomycin and cefepime given in the ED, Zosyn started 09/23 --> 09/25 Ancef 09/24 ECHO: EF 35 to 40% no evidence of a mass or vegetation. f/u 09/24 blood culture-remain negative Cardiology on board due to recent pacer exchange and bacteremia, plan for MARGA to r/o IE on Tuesday. ID evaluated, MARGA to r/o IE and duration of ATB therapy based on MARGA finding. We will continue intravenous Ancef for now and await further ID recommendation Elevated troponin Flat trend at 0.07, likely secondary to sepsis. EKG at admission with paced rhythm. Pt w/ no chest pain Subtherapeutic INR Secondary to Coumadin being held from recent bronchoscopy INR presentation 1.2, trending up PT/INR daily-INR is 1.9 as of 09/26/2021 INR remains therapeutic Plan is to discontinue Coumadin and start Eliquis Other chronic medical condition: HFrEF, status post biventricular ICD/PPM, PAF on Coumadin, DM 2 insulin requiring, HLD, HTN, CKD, chronic anemia Continue with/resume home medications as and when appropriate. Monitor and replete electrolytes as and when appropriate. Low hemoglobin, FOBT negative, follow-up with iron studies tomorrow, f/u HnH DVT prophylaxis. Coumadin INR goal between 2 and 3 Full code Admission and Anticipated Discharge Date Admission Date: September 23, 2021 Subjective 09/26/2021 The patient was seen and examined in medical telemetry unit He remains stable without any significant symptoms 09/27/2021 The patient was seen and examined in medical telemetry unit He remains stable without any symptoms He will have a MARGA tomorrow 09/28/2021 The patient was seen and examined medical telemetry unit He is status post MARGA and has been feeling okay without any symptoms Denies any chest pain, palpitation, shortness of breath Review of Systems Review of Systems: All systems reviewed and are unremarkable except as noted below Physical Exam Physical Exam: Lying in bed comfortably Constitutional: well developed, well nourished and + obese; not ill appearing Eyes: PERRL, conjunctivae normal, anicteric sclerae ENMT: external ear and nose normal, oropharynx normal Neck: trachea midline, no thyromegaly Respiratory: no respiratory distress Auscultation: lungs clear to auscultation bilaterally; no crackles Cardiovascular: Rate/Rhythm: regular rate and regular rhythm; not tachycardic Heart Sounds: normal S1, normal S2 and + murmur (2/6 ESM over precordium) Extremities: no edema Gastrointestinal (Abdomen): Inspection/Auscultation: abdomen not distended Percussion/Palpation: abdomen soft; abdomen nontender Musculoskeletal: No acute arthritis in any joint Neurologic: Alert, awake and oriented x3. Generally weak but no focal neuro deficit Psychiatric: A+Ox3, euthymic affect Results & Data Results & Data ([facility]) Vital Signs (Past 12 Hours) Vital Signs Temp Pulse Pulse Pulse Resp BP BP 09/28/21 12:18 36.7 C 70 15 172/88 H 09/28/21 11:15 36.6 C 60 15 148/82 H 09/28/21 10:15 36.4 C L 69 14 182/84 H 09/28/21 09:50 36.4 C L 67 15 158/86 H 09/28/21 09:30 64 15 134/82 09/28/21 09:20 65 15 131/64 09/28/21 09:15 63 15 138/78 09/28/21 09:10 67 15 139/76 09/28/21 09:05 68 15 142/77 H 09/28/21 07:21 70 09/28/21 07:19 67 17 142/84 H 09/28/21 04:00 36.7 C 75 18 150/80 H Pulse Ox 09/28/21 12:18 95 09/28/21 11:15 96 09/28/21 10:15 97 09/28/21 09:50 98 09/28/21 09:30 95 09/28/21 09:20 95 09/28/21 09:15 95 09/28/21 09:10 94 09/28/21 09:05 99 09/28/21 07:21 09/28/21 07:19 99 09/28/21 04:00 94 Laboratory Results Short CBC 09/28/21 Range/Units 06:46 WBC 7.53 (4.8-10.8) K/uL Hgb 7.4 L (14.0-18.0) g/dL Hct 23.1 L (42-52) % Plt Count 276 (130-400) K/uL BMP 09/28/21 06:46 Sodium 138 Potassium 3.9 Chloride 111 H Carbon Dioxide 24 BUN 20 Creatinine 1.14 Glucose 94 Calcium 8.1 L Medications Administered Current Inpatient Medications Acetaminophen (Acetaminophen 325 Mg Tab) 650 mg PO Q4H PRN PRN Reason: Pain or Fever Stop: 10/23/21 01:39 Atorvastatin Calcium (Atorvastatin 40 Mg Tab) 80 mg PO QAM [facility] Stop: 10/23/21 08:59 Last Admin: 09/28/21 10:19 Dose: 80 mg Documented by: Dextrose (Dextrose 50% 50 Ml Syringe) 25 - 50 ml IV UD PRN; Protocol PRN Reason: Hypoglycemia Protocol Stop: 10/23/21 01:39 Ezetimibe (Ezetimibe 10 Mg Tablet) 10 mg PO DAILY [facility] Stop: 10/23/21 08:59 Last Admin: 09/28/21 10:20 Dose: 10 mg Documented by: Ferrous Sulfate (Ferrous Sulfate 325 Mg Tab) 325 mg PO BID [facility] Stop: 10/23/21 08:59 Last Admin: 09/28/21 10:20 Dose: 325 mg Documented by: Fluticasone/Vilanterol (Fluticasone/Vilanterol 200/25mcg 14 Puffs/Inhaler) 1 puffs INH QAM [facility] Stop: 10/23/21 08:59 Last Admin: 09/28/21 10:19 Dose: 1 puffs Documented by: Glucagon (Glucagon For Inj 1 Mg Vial) 1 mg SQ UD PRN; Protocol PRN Reason: Hypoglycemia Protocol Stop: 10/23/21 01:39 Glucose (Glucose 10 Tabs/Tube) 4 - 8 tabs PO UD PRN; Protocol PRN Reason: Hypoglycemia Protocol Stop: 10/23/21 01:39 Glucose (Glucose 40% Gel 15 Gm Tube) 15 - 30 gm PO UD PRN; Protocol PRN Reason: Hypoglycemia Protocol Stop: 10/23/21 01:39 Guaifenesin (Guaifenesin 600 Mg Tabcr) 600 mg PO Q12 [facility]ULI Stop: 10/23/21 01:39 Last Admin: 09/28/21 10:19 Dose: 600 mg Documented by: Promethazine HCl 12.5 mg/ (Sodium Chloride) 50.5 mls @ 202 mls/hr IV Q6H PRN PRN Reason: Nausea And Vomiting Stop: 10/23/21 01:39 Cefazolin Sodium (Ancef 2000mg) 2,000 mg in 15 mls @ 3.75 mls/min IV Q8 YULI Stop: 11/06/21 21:59 Last Admin: 09/28/21 05:42 Dose: 3.75 mls/min Documented by: Insulin Aspart (Insulin Aspart Per Unit) 0 units SC ACHS YUIL Stop: 10/23/21 01:39 Last Admin: 09/28/21 12:18 Dose: 2 units Documented by: Insulin Glargine (Insulin Glargine Solostar 100 Units/Ml 3 Ml Pen) 15 units SQ HS [facility] Stop: 10/23/21 01:39 Last Admin: 09/27/21 21:12 Dose: 15 units Documented by: Isosorbide Dinitrate (Isosorbide Dinitrate 20 Mg Tab) 20 mg PO TID@0700,1200,1700 YULI Stop: 10/23/21 06:59 Last Admin: 09/28/21 12:18 Dose: 20 mg Documented by: Metoprolol Succinate (Metoprolol Succ 50mg Ext Rel Tab) 150 mg PO BID [facility]ULI Stop: 10/23/21 00:29 Last Admin: 09/28/21 10:20 Dose: 150 mg Documented by: Miscellaneous (Carbohydrates For Hypoglycemia ) 15 - 30 gm PO UD PRN PRN Reason: Hypoglycemia Protocol Stop: 10/23/21 01:39 Multivitamins/Minerals (Cerovite Adv Formula Tab) 1 tab PO QAM [facility]I Stop: 10/23/21 08:59 Last Admin: 09/28/21 10:20 Dose: 1 tab Documented by: Nitroglycerin (Nitroglycerin Sl 0.4 Mg/Tab Tab) 0.4 mg SL UD PRN PRN Reason: Chest Pain Stop: 10/23/21 01:39 Pantoprazole Sodium (Pantoprazole 40 Mg Tab) 40 mg PO BID YULI Stop: 10/23/21 08:59 Last Admin: 09/28/21 10:19 Dose: 40 mg Documented by: Sacubitril/Valsartan (Valsartan/Sacubitril 26/24mg Tab) 1 tab PO BID YULI Stop: 10/28/21 20:59 Tamsulosin HCl (Tamsulosin Hcl 0.4 Mg Cap) 0.4 mg PO HS YULI Stop: 10/23/21 20:59 Last Admin: 09/27/21 21:13 Dose: 0.4 mg Documented by: Tramadol HCl (Tramadol Hcl 50 Mg Tablet) 25 - 50 mg PO Q4H PRN PRN Reason: Pain Stop: 10/23/21 01:39
--- NOTE | 2021-09-28 16:20 | XRay Report ---
XR chest 1V portable HISTORY: PICC line placement COMPARISON: Chest 09/22/2021. FINDINGS: Interval placement of a right PICC which is looped within the proximal SVC. This should be repositioned. No pneumothorax. No pleural effusions. The cortex and what is enlarged. This remains un changed. There is mild central pulmonary vascular congestion without overt edema. This is similar to the prior study. A left-sided pacemaker/defibrillator. A few bibasilar linear densities favor subsegm ental atelectasis. The 1 cm nodule seen within the right lower lobe on the recent abdomen and pelvis CT is not identified by this modality. IMPRESSION: 1. Right PICC is looped within the proximal SVC. This should be repositioned. 2. Bibasilar densities are nonspecific but favor subsegmental atelectasis. A pneumonia could also hav e a similar appearance. 3. A 1 cm pulmonary nodule seen within the right lower lobe on the prior CT is not identified by this modality. [address] follow-up can be performed to ensure resolution. ACT 112: Positive. There are findings on this exam that require communication between the performing entity and the patient following Patient Test Result Information Act ([place] Act 112) guidelines. Electronically signed by: Daniel Abreu M.D. 09/28/2021 4:17 PM
--- NOTE | 2021-09-28 17:08 | XRay Report ---
XR chest 1V portable CLINICAL HISTORY: PICC line repositioning TECHNIQUE: Single frontal radiograph of the chest was obtained. Comparison: Comparison is made to chest one view 09/28/2021 FINDINGS: Pacemaker defibrillator is seen. A right PICC tip terminates in the lower SVC. The cardiomediastinal silhouette is normal. Prominence and cephalization of the vasculature is seen. Right greater than lef t lower lung airspace opacities are unchanged. No evidence of pleural effusion or pneumothorax. IMPRESSION: 1. Satisfactory appearance of the right PICC tip status post repositioning. 2. Right greater than left lower lung airspace opacities are unchanged, which may represent atelecta sis or pneumonia/aspiration. ACT 112: Negative or not required by law. Electronically signed by: Arnold Almodovar M.D. 09/28/2021 5:07 PM
--- NOTE | 2021-09-28 17:20 | Communication Note ---
Date of Service: September 28, 2021 Per patient's request, I attempted to reach his sister, Miryam, to provide an update with regards to his plan of care, phone #[phone]. I was unable to connect with her, I left a voicemail stating I would try again tomorrow.
[2021-09-28] MEDS: INSULIN GLARGINE SOLOSTAR 100 UNITS/ML 3 ML PEN SQ SCH (21:43)
[2021-09-28] MEDS: TAMSULOSIN HCL 0.4 MG CAP PO SCH (21:44)
[2021-09-28] MEDS: VALSARTAN/SACUBITRIL 26/24MG TAB PO SCH (22:33)
[2021-09-29] MEDS: ceFAZolin 2000MG 2,000 MG/15 ML SYR IV SCH ×3 (06:20→22:20)
[2021-09-29] MEDS: ISOSORBIDE DINITRATE 20 MG TAB PO SCH ×3 (06:21→17:18)
[2021-09-29 07:11] LABS: Basophils # (auto) 0.02 K/uL (0-0.2); Basophils % (auto) 0.3 %; Eosinophils # (auto) 0.09 K/uL (0-0.5); Eosinophils % (auto) 1.2 %; Hematocrit (blood only) 23.5 % (42-52); Hemoglobin 7.6 g/dL (14.0-18.0); Immature Granulocytes # (auto) 0.09 K/uL (0.00-0.02); Immature Granulocytes % (auto) 1.2 %; Lymphocytes # (auto) 1.51 K/uL (1.2-3.4); Mean Corpuscular Hgb Conc 32.3 g/dL (32-36); Mean Corpuscular Volume 83.3 fL (80-100); Mean Platelet Volume 8.4 fL (7.4-10.4); Monocytes # (auto) 0.54 K/uL (0.11-0.59); Monocytes % (auto) 7.2 %; Neutrophils # (auto) 5.29 K/uL (1.4-6.5); Neutrophils % (auto) 70.1 %; Platelet Count 254 K/uL (130-400); RDW Coefficient of Variation 15.9 % (11.5-14.5); RDW Standard Deviation 47.4 fL (36.4-46.3); Red Blood Count 2.82 M/uL (4.7-6.1); White Blood Count 7.54 K/uL (4.8-10.8)
[2021-09-29 07:18] LABS: INR 1.8 (0.9-1.1); Prothrombin Time 18.9 Seconds (9.0-12.0)
[2021-09-29 07:34] LABS: RBC Morphology Unremarkable
[2021-09-29 08:03] LABS: Albumin Globulin Ratio 0.9 (0.9-2); Albumin Level 2.7 gm/dl (3.4-5.0); BUN Creatinine Ratio 15.8 (10-20); Bilirubin,Total 0.3 mg/dl (0.2-1.0); Creatinine Clr Calc Pharmacy 108.6 ml/min; Est GFR (African American) 93.9 ml/min; Globulin 2.9 gm/dl (2.5-4.0); Potassium 3.8 mmol/L (3.5-5.1); Total Protein 5.6 gm/dl (6.0-8.3)
[2021-09-29] MEDS: ATORVASTATIN 40 MG TAB PO SCH (08:50)
[2021-09-29] MEDS: guaiFENesin 600 MG TABCR PO SCH ×2 (08:50→20:29)
[2021-09-29] MEDS: PANTOprazole 40 MG TAB PO SCH ×2 (08:50→20:29)
[2021-09-29] MEDS: METOPROLOL SUCC 50MG EXT REL TAB PO SCH ×2 (08:50→20:29)
[2021-09-29] MEDS: FERROUS SULFATE 325 MG TAB PO SCH ×2 (08:50→20:29)
[2021-09-29] MEDS: VALSARTAN/SACUBITRIL 26/24MG TAB PO SCH ×2 (08:50→20:29)
[2021-09-29] MEDS: EZETIMIBE 10 MG TABLET PO SCH (08:51)
[2021-09-29] MEDS: CEROVITE ADV FORMULA TAB PO SCH (08:51)
[2021-09-29] MEDS: FLUTICASONE/VILANTEROL 200/25MCG 14 PUFFS/INHALER INH SCH (08:51)
[2021-09-29] MEDS: INSULIN ASPART PER UNIT SC SCH ×4 (09:11→20:36)
--- NOTE | 2021-09-29 13:16 | Cardiology Progress Note ---
Date of Service September 29, 2021 Assessment & Plan (1) Fever: (2) Staphylococcus aureus bacteremia: (3) Biventricular automatic implantable cardioverter defibrillator in situ: (4) NICM (nonischemic cardiomyopathy): (5) Chronic HFrEF (heart failure with reduced ejection fraction): Plan: -Longstanding history of nonischemic cardiomyopathy, left bundle branch block -On 08/08/2019: Insertion of biventricular pacemaker AICD, right atrial lead, right ventricular lead, coronary sinus lead -Nov, 2019, admitted with sepsis, sensitive staph aureus, felt to be due to diabetic foot wound, ultimately underwent amputation of the second toe of the left foot due to concerns of osteomyelitis by plain x-ray -09/16/2021: Biventricular pacemaker/AICD revision, with extraction of the coronary sinus lead, placement of a septal, His bundle lead, chronic right atrial lead, right ventricular leads placed in 2019 retained, generator change -09/17/2021, low-grade fever, 1/2 blood cultures positive for sensitive staph aureus -09/21/2021, bronchoscopy, GLH, work-up of recently noted 6 cm left lower lobe chest opacity, bronchial washings, cytology negative for infection, or evidence of malignancy. PET scan ordered, yet to be completed -09/22/2021 recurrent fever, 2/2 blood cultures positive for sensitive staph aureus -09/24/21: 2/2 blood cultures obtained on antibiotics, no growth thus far. -09/28/21: MARGA, 3 leads without vegetation, + TV vegetation. * 09/28/21, MARGA reveals 1 cm x 1.1 cm echodensity on the tricuspid valve that in taking the clinical presentation in mind is consistent with vegetation (less likely, off axis view of TV prolapse). * Case discussed at length with Dr Cardoza of EP and with Dr Avila of ID service at [facility] by phone. [place] next step would be for device excision, temporary pacemaker bridge as patient felt to be pacemaker dependent, 6 weeks of IV antibiotics, with device re-implant a few days after extraction. * Pt however, felt to be at high risk for complication related to extraction. * Options discussed with patient, who prefers to avoid device extraction. * Will therefore proceed with alternative option of 6 weeks of IV Ancef, addition of Rifampin and close clinical follow up. * Repeat MARGA in 5 week, week of 11/02/21, as I am on hospital service then. * If recurrent fever / bacteremia in meantime, will need to reassess benefit / risk of device extraction. -DC coumadin and transition to Eliquis to avoid labile INR readings in setting of Rifampin treatement. -INR 1.8 today, wait another day prior to starting Eliquis. -Resume furosemide 80 mg PO daily tomorrow. Admission and Anticipated Discharge Date Admission Date: September 23, 2021 Subjective Patient seen in follow up. He feels well. Denies subjective fevers or chills. Physical Exam Constitutional: WD/WN, vitals as above Respiratory: normal respiratory effort, lungs clear to auscultation Cardiovascular: RRR, no murmur, no edema Gastrointestinal (Abdomen): normal bowel sounds, soft, nontender, no hepatosplenomegaly Neurologic: PERRL, EOMI, accommodation nl, no face palsy, no dysarthria Results & Data ([facility]) Vital Signs (Past 12 Hours) Vital Signs Temp Pulse Pulse Resp BP BP Pulse Ox 09/29/21 12:12 36.5 C 72 20 150/79 H 95 09/29/21 09:30 62 09/29/21 06:41 36.6 C 67 20 148/98 H 96 09/29/21 05:46 69 09/29/21 03:28 36.7 C 67 18 144/81 H 95 Laboratory Results Cardiac Enzymes 09/29/21 Range/Units 06:53 AST 28 (13-39) U/L Coagulation INR 1.8 09/29/21 Range/Units 06:53 PT 18.9 H (9.0-12.0) Seconds CBC 09/29/21 Range/Units 06:53 WBC 7.54 (4.8-10.8) K/uL RBC 2.82 L (4.7-6.1) M/uL Hgb 7.6 L (14.0-18.0) g/dL Hct 23.5 L (42-52) % Plt Count 254 (130-400) K/uL Neut # (Auto) 5.29 (1.4-6.5) K/uL Lymph # (Auto) 1.51 (1.2-3.4) K/uL [place] # (Auto) 0.54 (0.11-0.59) K/uL Eos # (Auto) 0.09 (0-0.5) K/uL Baso # (Auto) 0.02 (0-0.2) K/uL Comprehensive Metabolic Panel 09/29/21 Range/Units 06:53 Sodium 138 (136-145) mmol/L Potassium 3.8 (3.5-5.1) mmol/L Chloride 112 H (98-107) mmol/L Carbon Dioxide 22 (21-32) mmol/L BUN 16 (6-23) mg/dl Creatinine 1.01 (0.6-1.4) mg/dl Glucose 121 H (70-99(Fasting)) mg/dl Calcium 8.0 L (8.5-10.1) mg/dl AST 28 (13-39) U/L ALT 20 (7-52) U/L Alkaline Phosphatase 78 (34-104) U/L Total Protein 5.6 L (6.0-8.3) gm/dl Albumin 2.7 L (3.4-5.0) gm/dl LFTs normal with exception of low protein, low albumin (1) Fever Fever type: unspecified Qualified Code(s): R50.9 - Fever, unspecified
[2021-09-29] MEDS ORDERED: rifAMPin 300 MG CAPSULE PO ONE (14:48)
--- NOTE | 2021-09-29 18:03 | Hospitalist Progress Note ---
Date of Service September 29, 2021 Assessment & Plan (1) Sepsis: Plan: 61-year-old man with PMH of HFrEF 2/2 nonischemic CM [EF 30%, TTE 2021] s/p biventricular ICD/PPM, PAF on Coumadin, chronic LBBB, nonobstructive CAD, HTN, HLD, left lung mass [found on outpatient CT 2 months ago] s/p recent bronchoscopy/biopsy [on 09/21 at [place]], ZOFIA on CPAP, not on home oxygen, DM 2 insulin requiring, CKD [baseline creatinine 1.8], chronic anemia [baseline hemoglobin 8-9] presented to our ED 09/22 [per instruction of outpatient provider] with complaint of increasing cough [dry] and SOB associated with nausea/vomiting/fever with chills/sweating on the day of arrival. Patient has completed COVID-19 vaccination. Infective endocarditis Status post MARGA which showed tricuspid valve vegetations without any evidence of leads vegetation The nut sorter discussed the option of extraction and reimplantation of new device/conservative management for now Dynamic Balancer also discussed this with ID specialist he has been The patient is going to have conservative management for now PICC line will be placed and antibiotics will be given as per ID recommendation Discussed with the ID specialist in [place] and following antibiotics to be continued for 6 weeks total Cefazolin 2 g IV every 8 hours to be continued until 11/14/2021 Rifampicin 300 mg p.o. every 8 hours until to be continued 11/14/2021 Weekly CBC and CMP until 11/14/21 Scripts have been given to upper caser As pe Cardiology documentation: -03/2020: Insertion of biventricular pacemaker AICD, right atrial lead, right ventricular lead, coronary sinus lead -Nov, 2019, admitted with sepsis, sensitive staph aureus, felt to be due to diabetic foot wound, ultimately underwent amputation of the second toe of the left foot due to concerns of osteomyelitis by plain x-ray -09/16/2021: Biventricular pacemaker/AICD revision, with extraction of the coronary sinus lead, placement of a septal, His bundle lead, chronic right atrial lead, right ventricular leads placed in 2019 retained, generator change -09/17/2021, low-grade fever, 1/2 blood cultures positive for sensitive staph aureus -09/21/2021, bronchoscopy, GLH, work-up of recently noted 6 cm left lower lobe chest opacity, bronchial washings, cytology negative for infection, or evidence of malignancy. PET scan ordered, yet to be completed -09/23/2021 recurrent fever, 2/2 blood cultures positive for sensitive staph aureus No evidence of foot or toe ulcerations, pain, redness or any inflammation of the joints. He is being managed for the following: Sepsis POA: At admissionWBC elevated, pulse elevated, temperature elevated, HCAP suspected; and CXR w/ left basilar consolidation. Likely HCAP GPC Bacteremia Patient had recent pacer exchange followed by ED visit next day when blood culture was drawn and was came back positive for MSSA Sent back to ED 09/22 for further evaluation of MSSA bacteremia, repeat blood culture 09/22 in the ED again positive for MSSA Admitting CXR: Cardiomegaly and AICD with pulmonary vascular congestion. Left basilar consolidation likely pneumonia, radiographic follow-up for resolution needed. Admitting CTAP: No new acute findings. Sepsis likely secondary to HCAP [likely to recent bronchoscopy procedure/likely aspiration] and GPC bacteremia [likely secondary to recent pacer exchange vs lung biopsy] Vancomycin and cefepime given in the ED, Zosyn started 09/23 --> 09/25 Ancef 09/24 ECHO: EF 35 to 40% no evidence of a mass or vegetation. f/u 09/24 blood culture-remain negative Cardiology on board due to recent pacer exchange and bacteremia, plan for MARGA to r/o IE on Tuesday. ID evaluated, MARGA to r/o IE and duration of ATB therapy based on MARGA finding. We will continue intravenous Ancef for now and await further ID recommendation Elevated troponin Flat trend at 0.07, likely secondary to sepsis. EKG at admission with paced rhythm. Pt w/ no chest pain Subtherapeutic INR Secondary to Coumadin being held from recent bronchoscopy INR presentation 1.2, trending up PT/INR daily-INR is 1.9 as of 09/26/2021 INR remains therapeutic Plan is to discontinue Coumadin and start Eliquis Will start Eliquis 5 mg twice daily when the INR is less than 1.5 Other chronic medical condition: HFrEF, status post biventricular ICD/PPM, PAF on Coumadin, DM 2 insulin requiring, HLD, HTN, CKD, chronic anemia Continue with/resume home medications as and when appropriate. Monitor and replete electrolytes as and when appropriate. Low hemoglobin, FOBT negative, follow-up with iron studies tomorrow, f/u HnH DVT prophylaxis. Coumadin INR goal between 2 and 3 Full code Admission and Anticipated Discharge Date Admission Date: September 23, 2021 Subjective 09/26/2021 The patient was seen and examined in medical telemetry unit He remains stable without any significant symptoms 09/27/2021 The patient was seen and examined in medical telemetry unit He remains stable without any symptoms He will have a MARGA tomorrow 09/28/2021 The patient was seen and examined medical telemetry unit He is status post MARGA and has been feeling okay without any symptoms Denies any chest pain, palpitation, shortness of breath 09/30/2019 The patient was seen and examined in medical telemetry unit He has been stable and denies any symptoms He has had PICC line placement and likely discharge tomorrow Review of Systems Review of Systems: All systems reviewed and are unremarkable except as noted below Physical Exam Physical Exam: Lying in bed comfortably Constitutional: well developed, well nourished and + obese; not ill appearing Eyes: PERRL, conjunctivae normal, anicteric sclerae ENMT: external ear and nose normal, oropharynx normal Neck: trachea midline, no thyromegaly Respiratory: no respiratory distress Auscultation: lungs clear to auscultation bilaterally; no crackles Cardiovascular: Rate/Rhythm: regular rate and regular rhythm; not tachycardic Heart Sounds: normal S1, normal S2 and + murmur (2/6 ESM over precordium) Extremities: no edema Gastrointestinal (Abdomen): Inspection/Auscultation: abdomen not distended Percussion/Palpation: abdomen soft; abdomen nontender Musculoskeletal: No acute arthritis in any joint Psychiatric: A+Ox3, euthymic affect Results & Data Results & Data ([facility]) Vital Signs (Past 12 Hours) Vital Signs Temp Pulse Pulse Resp BP BP Pulse Ox 09/29/21 17:50 73 09/29/21 16:19 36.6 C 69 22 135/74 94 09/29/21 12:12 36.5 C 72 20 150/79 H 95 09/29/21 09:30 62 09/29/21 06:41 36.6 C 67 20 148/98 H 96 Laboratory Results Short CBC 09/29/21 Range/Units 06:53 WBC 7.54 (4.8-10.8) K/uL Hgb 7.6 L (14.0-18.0) g/dL Hct 23.5 L (42-52) % Plt Count 254 (130-400) K/uL BMP 09/29/21 06:53 Sodium 138 Potassium 3.8 Chloride 112 H Carbon Dioxide 22 BUN 16 Creatinine 1.01 Glucose 121 H Calcium 8.0 L Liver Function 09/29/21 Range/Units 06:53 Total Bilirubin 0.3 (0.2-1.0) mg/dl AST 28 (13-39) U/L ALT 20 (7-52) U/L Alkaline Phosphatase 78 (34-104) U/L Albumin 2.7 L (3.4-5.0) gm/dl Medications Administered Current Inpatient Medications Acetaminophen (Acetaminophen 325 Mg Tab) 650 mg PO Q4H PRN PRN Reason: Pain or Fever Stop: 10/23/21 01:39 Atorvastatin Calcium (Atorvastatin 40 Mg Tab) 80 mg PO QAM YULI Stop: 10/23/21 08:59 Last Admin: 09/29/21 08:50 Dose: 80 mg Documented by: Dextrose (Dextrose 50% 50 Ml Syringe) 25 - 50 ml IV UD PRN; Protocol PRN Reason: Hypoglycemia Protocol Stop: 10/23/21 01:39 Ezetimibe (Ezetimibe 10 Mg Tablet) 10 mg PO DAILY YULI Stop: 10/23/21 08:59 Last Admin: 09/29/21 08:51 Dose: 10 mg Documented by: Ferrous Sulfate (Ferrous Sulfate 325 Mg Tab) 325 mg PO BID YULI Stop: 10/23/21 08:59 Last Admin: 09/29/21 08:50 Dose: 325 mg Documented by: Fluticasone/Vilanterol (Fluticasone/Vilanterol 200/25mcg 14 Puffs/Inhaler) [facility] Stop: 10/23/21 08:59 Last Admin: 09/29/21 08:51 Dose: 1 puffs Documented by: Furosemide (Furosemide 80 Mg Tab) 80 mg PO QAM [facility] Stop: 10/30/21 08:59 Glucagon (Glucagon For Inj 1 Mg Vial) 1 mg SQ UD PRN; Protocol PRN Reason: Hypoglycemia Protocol Stop: 10/23/21 01:39 Glucose (Glucose 10 Tabs/Tube) 4 - 8 tabs PO UD PRN; Protocol PRN Reason: Hypoglycemia Protocol Stop: 10/23/21 01:39 Glucose (Glucose 40% Gel 15 Gm Tube) 15 - 30 gm PO UD PRN; Protocol PRN Reason: Hypoglycemia Protocol Stop: 10/23/21 01:39 Guaifenesin (Guaifenesin 600 Mg Tabcr) 600 mg PO Q12 YULI Stop: 10/23/21 01:39 Last Admin: 09/29/21 08:50 Dose: 600 mg Documented by: Heparin Sodium (Beef Lung) (Heparin 10 Unit/Ml 5 Ml Flush) 5 ml FLUSH PRN PRN PRN Reason: Flush Stop: 10/29/21 01:43 Promethazine HCl 12.5 mg/ (Sodium Chloride) 50.5 mls @ 202 mls/hr IV Q6H PRN PRN Reason: Nausea And Vomiting Stop: 10/23/21 01:39 Cefazolin Sodium (Ancef 2000mg) 2,000 mg in 15 mls @ 3.75 mls/min IV Q8 YULI Stop: 11/06/21 21:59 Last Admin: 09/29/21 13:33 Dose: 3.75 mls/min Documented by: Insulin Aspart (Insulin Aspart Per Unit) 0 units SC ACHS YULI Stop: 10/23/21 01:39 Last Admin: 09/29/21 17:18 Dose: Not Given Documented by: Insulin Glargine (Insulin Glargine Solostar 100 Units/Ml 3 Ml Pen) 15 units SQ HS YULI Stop: 10/23/21 01:39 Last Admin: 09/28/21 21:43 Dose: 15 units Documented by: Isosorbide Dinitrate (Isosorbide Dinitrate 20 Mg Tab) 20 mg PO TID@0700,1200,1700 [facility] Stop: 10/23/21 06:59 Last Admin: 09/29/21 17:18 Dose: 20 mg Documented by: Metoprolol Succinate (Metoprolol Succ 50mg Ext Rel Tab) 150 mg PO BID YULI Stop: 10/23/21 00:29 Last Admin: 09/29/21 08:50 Dose: 150 mg Documented by: Miscellaneous (Carbohydrates For Hypoglycemia ) 15 - 30 gm PO UD PRN PRN Reason: Hypoglycemia Protocol Stop: 10/23/21 01:39 Multivitamins/Minerals (Cerovite Adv Formula Tab) 1 tab PO QAM YULI Stop: 10/23/21 08:59 Last Admin: 09/29/21 08:51 Dose: 1 tab Documented by: Nitroglycerin (Nitroglycerin Sl 0.4 Mg/Tab Tab) 0.4 mg SL UD PRN PRN Reason: Chest Pain Stop: 10/23/21 01:39 Pantoprazole Sodium (Pantoprazole 40 Mg Tab) 40 mg PO BID YULI Stop: 10/23/21 08:59 Last Admin: 09/29/21 08:50 Dose: 40 mg Documented by: Rifampin (Rifampin 300 Mg Capsule) 300 mg PO BID YULI Stop: 11/10/21 20:59 Sacubitril/Valsartan (Valsartan/Sacubitril 26/24mg Tab) 1 tab PO BID YULI Stop: 10/28/21 20:59 Last Admin: 09/29/21 08:50 Dose: 1 tab Documented by: Tamsulosin HCl (Tamsulosin Hcl 0.4 Mg Cap) 0.4 mg PO HS [facility] Stop: 10/23/21 20:59 Last Admin: 09/28/21 21:44 Dose: 0.4 mg Documented by: Tramadol HCl (Tramadol Hcl 50 Mg Tablet) 25 - 50 mg PO Q4H PRN PRN Reason: Pain Stop: 10/23/21 01:39
[2021-09-29] MEDS: rifAMPin 300 MG CAPSULE PO SCH (20:29)
[2021-09-29] MEDS: TAMSULOSIN HCL 0.4 MG CAP PO SCH (20:29)
[2021-09-29] MEDS: INSULIN GLARGINE SOLOSTAR 100 UNITS/ML 3 ML PEN SQ SCH (20:37)
[2021-09-30] MEDS: ceFAZolin 2000MG 2,000 MG/15 ML SYR IV SCH ×2 (05:11→15:26)
[2021-09-30] MEDS: ISOSORBIDE DINITRATE 20 MG TAB PO SCH ×2 (07:00→12:37)
[2021-09-30] MEDS: CEROVITE ADV FORMULA TAB PO SCH (08:32)
[2021-09-30] MEDS: ATORVASTATIN 40 MG TAB PO SCH (08:32)
[2021-09-30] MEDS: VALSARTAN/SACUBITRIL 26/24MG TAB PO SCH (08:33)
[2021-09-30] MEDS: METOPROLOL SUCC 50MG EXT REL TAB PO SCH (08:33)
[2021-09-30] MEDS: rifAMPin 300 MG CAPSULE PO SCH (08:33)
[2021-09-30] MEDS: EZETIMIBE 10 MG TABLET PO SCH (08:33)
[2021-09-30] MEDS: guaiFENesin 600 MG TABCR PO SCH (08:34)
[2021-09-30] MEDS: FERROUS SULFATE 325 MG TAB PO SCH (08:34)
[2021-09-30] MEDS: FLUTICASONE/VILANTEROL 200/25MCG 14 PUFFS/INHALER INH SCH (08:34)
[2021-09-30] MEDS: PANTOprazole 40 MG TAB PO SCH (08:34)
[2021-09-30] MEDS: INSULIN ASPART PER UNIT SC SCH ×2 (08:40→12:37)
[2021-09-30 08:52] LABS: INR 1.4 (0.9-1.1); Prothrombin Time 14.2 Seconds (9.0-12.0)
[2021-09-30] MEDS ORDERED: FUROSEMIDE 80 MG TAB PO SCH (09:00)
[2021-09-30 09:05] LABS: Albumin Globulin Ratio 0.9 (0.9-2); Albumin Level 2.9 gm/dl (3.4-5.0); BUN Creatinine Ratio 15.1 (10-20); Bilirubin,Total 0.8 mg/dl (0.2-1.0); Calcium 8.5 mg/dl (8.5-10.1); Creatinine Clr Calc Pharmacy 127.5 ml/min; Est GFR (Non-African American) 94.9 ml/min; Globulin 3.4 gm/dl (2.5-4.0); Total Protein 6.3 gm/dl (6.0-8.3)
[2021-09-30] MEDS ORDERED: APIXABAN 5 MG TABLET PO SCH (09:15)
--- NOTE | 2021-09-30 10:14 | Hospitalist Progress Note ---
Date of Service September 30, 2021 Assessment & Plan (1) Sepsis: Plan: 61-year-old man with PMH of HFrEF 2/2 nonischemic CM [EF 30%, TTE 2021] s/p biventricular ICD/PPM, PAF on Coumadin, chronic LBBB, nonobstructive CAD, HTN, HLD, left lung mass [found on outpatient CT 2 months ago] s/p recent bronchoscopy/biopsy [on 09/21 at [place]], ZOFIA on CPAP, not on home oxygen, DM 2 insulin requiring, CKD [baseline creatinine 1.8], chronic anemia [baseline hemoglobin 8-9] presented to our ED 09/22 [per instruction of outpatient provider] with complaint of increasing cough [dry] and SOB associated with nausea/vomiting/fever with chills/sweating on the day of arrival. Patient has completed COVID-19 vaccination. Infective endocarditis Status post MARGA which showed tricuspid valve vegetations without any evidence of leads vegetation The housetrailer servicer discussed the option of extraction and reimplantation of new device/conservative management for now Agency Development Manager also discussed this with ID specialist he has been The patient is going to have conservative management for now PICC line will be placed and antibiotics will be given as per ID recommendation Discussed with the ID specialist in [place] and following antibiotics to be continued for 6 weeks total Cefazolin 2 g IV every 8 hours to be continued until 11/14/2021 Rifampicin 300 mg p.o. every 8 hours until to be continued 11/14/2021 Weekly CBC and CMP until 11/14/21 Scripts have been given to ed case manager Drug interaction with rifampin and anticoagulation Rifampin can decrease the effectiveness of oral anticoagulants After discussion with the pharmacist and the housetrailer servicer he was put on Coumadin can be tightly monitored as an outpatient Discussed with the patient in detailed Any oral anticoagulation cannot be given due to severe interaction with rifampicin and very difficult to manage oral anticoagulation as long as he will be on rifampicin After discussion with the pharmacist, housetrailer servicer and the patient, Lovenox 120 mg subcu twice daily was prescribed as long as the patient will be on rifampicin. As pe Cardiology documentation: -03/2020: Insertion of biventricular pacemaker AICD, right atrial lead, right ventricular lead, coronary sinus lead -Nov, 2019, admitted with sepsis, sensitive staph aureus, felt to be due to diabetic foot wound, ultimately underwent amputation of the second toe of the left foot due to concerns of osteomyelitis by plain x-ray -09/16/2021: Biventricular pacemaker/AICD revision, with extraction of the coronary sinus lead, placement of a septal, His bundle lead, chronic right atrial lead, right ventricular leads placed in 2019 retained, generator change -09/17/2021, low-grade fever, 1/2 blood cultures positive for sensitive staph aureus -09/21/2021, bronchoscopy, GLH, work-up of recently noted 6 cm left lower lobe chest opacity, bronchial washings, cytology negative for infection, or evidence of malignancy. PET scan ordered, yet to be completed -09/23/2021 recurrent fever, 2/2 blood cultures positive for sensitive staph aureus No evidence of foot or toe ulcerations, pain, redness or any inflammation of the joints. He is being managed for the following: Sepsis POA: At admissionWBC elevated, pulse elevated, temperature elevated, HCAP suspected; and CXR w/ left basilar consolidation. Likely HCAP GPC Bacteremia Patient had recent pacer exchange followed by ED visit next day when blood culture was drawn and was came back positive for MSSA Sent back to ED 09/22 for further evaluation of MSSA bacteremia, repeat blood culture 09/22 in the ED again positive for MSSA Admitting CXR: Cardiomegaly and AICD with pulmonary vascular congestion. Left basilar consolidation likely pneumonia, radiographic follow-up for resolution needed. Admitting CTAP: No new acute findings. Sepsis likely secondary to HCAP [likely to recent bronchoscopy procedure/likely aspiration] and GPC bacteremia [likely secondary to recent pacer exchange vs lung biopsy] Vancomycin and cefepime given in the ED, Zosyn started 09/23 --> 09/25 Ancef 09/24 ECHO: EF 35 to 40% no evidence of a mass or vegetation. f/u 09/24 blood culture-remain negative Cardiology on board due to recent pacer exchange and bacteremia, plan for MARGA to r/o IE on Tuesday. ID evaluated, MARGA to r/o IE and duration of ATB therapy based on MARGA finding. We will continue intravenous Ancef for now and await further ID recommendation Recommendation is as above Elevated troponin Flat trend at 0.07, likely secondary to sepsis. EKG at admission with paced rhythm. Pt w/ no chest pain Subtherapeutic INR Secondary to Coumadin being held from recent bronchoscopy INR presentation 1.2, trending up PT/INR daily-INR is 1.9 as of 09/26/2021 INR remains therapeutic Plan is to discontinue Coumadin and start Eliquis Will start Eliquis 5 mg twice daily when the INR is less than 1.5 Will give Lovenox 120 mg subcu twice daily Other chronic medical condition: HFrEF, status post biventricular ICD/PPM, PAF on Coumadin, DM 2 insulin requiring, HLD, HTN, CKD, chronic anemia Continue with/resume home medications as and when appropriate. Monitor and replete electrolytes as and when appropriate. Low hemoglobin, FOBT negative, follow-up with iron studies tomorrow, f/u HnH DVT prophylaxis. Subcu Lovenox as long as he will be on rifampicin Full code Likely to be discharged this afternoon Admission and Anticipated Discharge Date Admission Date: September 23, 2021 Subjective 09/26/2021 The patient was seen and examined in medical telemetry unit He remains stable without any significant symptoms 09/27/2021 The patient was seen and examined in medical telemetry unit He remains stable without any symptoms He will have a MARGA tomorrow 09/28/2021 The patient was seen and examined medical telemetry unit He is status post MARGA and has been feeling okay without any symptoms Denies any chest pain, palpitation, shortness of breath 09/29/2021 The patient was seen and examined in medical telemetry unit He has been stable and denies any symptoms He has had PICC line placement and likely discharge tomorrow 09/30/2021 The patient was seen and examined in medical telemetry unit He has been stable and denies any symptoms He has been on rifampicin for infective endocarditis which has interactions with anticoagulation Most likely he will be back on Coumadin morning anticoagulation with tight monitoring as an outpatient Review of Systems Review of Systems: All systems reviewed and are unremarkable except as noted below Physical Exam Physical Exam: Lying in bed comfortably Constitutional: well developed, well nourished and + obese; not ill appearing Eyes: PERRL, conjunctivae normal, anicteric sclerae ENMT: external ear and nose normal, oropharynx normal Neck: trachea midline, no thyromegaly Respiratory: no respiratory distress Auscultation: lungs clear to auscultation bilaterally; no crackles Cardiovascular: Rate/Rhythm: regular rate and regular rhythm; not tachycardic Heart Sounds: normal S1, normal S2 and + murmur (2/6 ESM over precordium) Extremities: no edema Gastrointestinal (Abdomen): Inspection/Auscultation: abdomen not distended Percussion/Palpation: abdomen soft; abdomen nontender Musculoskeletal: No acute arthritis in any joint Neurologic: Alert, awake and oriented x3. No focal sensory or motor deficit appreciated Psychiatric: A+Ox3, euthymic affect Results & Data Results & Data ([facility]) Vital Signs (Past 12 Hours) Vital Signs Temp Pulse Resp BP BP Pulse Ox 09/30/21 07:53 36.6 C 72 20 162/89 H 95 09/30/21 03:00 36.7 C 70 16 132/78 94 09/29/21 23:10 36.9 C 80 20 167/90 H 95 Laboratory Results [facility] 09/30/21 08:12 Sodium 139 Potassium 4.0 Chloride 111 H Carbon Dioxide 23 BUN 13 Creatinine 0.86 Glucose 124 H Calcium 8.5 Liver Function 09/30/21 Range/Units 08:12 Total Bilirubin 0.8 D (0.2-1.0) mg/dl AST 22 (13-39) U/L ALT 15 (7-52) U/L Alkaline Phosphatase 89 (34-104) U/L Albumin 2.9 L (3.4-5.0) gm/dl Medications Administered Current Inpatient Medications Acetaminophen (Acetaminophen 325 Mg Tab) 650 mg PO Q4H PRN PRN Reason: Pain or Fever Stop: 10/23/21 01:39 Atorvastatin Calcium (Atorvastatin 40 Mg Tab) 80 mg PO QAM [facility] Stop: 10/23/21 08:59 Last Admin: 09/30/21 08:32 Dose: 80 mg Documented by: Dextrose (Dextrose 50% 50 Ml Syringe) 25 - 50 ml IV UD PRN; Protocol PRN Reason: Hypoglycemia Protocol Stop: 10/23/21 01:39 Ezetimibe (Ezetimibe 10 Mg Tablet) 10 mg PO DAILY UYLI Stop: 10/23/21 08:59 Last Admin: 09/30/21 08:33 Dose: 10 mg Documented by: Ferrous Sulfate (Ferrous Sulfate 325 Mg Tab) 325 mg PO BID [facility] Stop: 10/23/21 08:59 Last Admin: 09/30/21 08:34 Dose: 325 mg Documented by: Fluticasone/Vilanterol (Fluticasone/Vilanterol 200/25mcg 14 Puffs/Inhaler) 1 puffs INH QAM [facility] Stop: 10/23/21 08:59 Last Admin: 09/30/21 08:34 Dose: 1 puffs Documented by: Furosemide (Furosemide 80 Mg Tab) 80 mg PO QAM [facility] Stop: 10/30/21 08:59 Last Admin: 09/30/21 08:32 Dose: 80 mg Documented by: Glucagon (Glucagon For Inj 1 Mg Vial) 1 mg SQ UD PRN; Protocol PRN Reason: Hypoglycemia Protocol Stop: 10/23/21 01:39 Glucose (Glucose 10 Tabs/Tube) 4 - 8 tabs PO UD PRN; Protocol PRN Reason: Hypoglycemia Protocol Stop: 10/23/21 01:39 Glucose (Glucose 40% Gel 15 Gm Tube) 15 - 30 gm PO UD PRN; Protocol PRN Reason: Hypoglycemia Protocol Stop: 10/23/21 01:39 Guaifenesin (Guaifenesin 600 Mg Tabcr) 600 mg PO Q12 YULI Stop: 10/23/21 01:39 Last Admin: 09/30/21 08:34 Dose: 600 mg Documented by: Heparin Sodium (Beef Lung) (Heparin 10 Unit/Ml 5 Ml Flush) 5 ml FLUSH PRN PRN PRN Reason: Flush Stop: 10/29/21 01:43 Promethazine HCl 12.5 mg/ (Sodium Chloride) 50.5 mls @ 202 mls/hr IV Q6H PRN PRN Reason: Nausea And Vomiting Stop: 10/23/21 01:39 Cefazolin Sodium (Ancef 2000mg) 2,000 mg in 15 mls @ 3.75 mls/min IV Q8 YULI Stop: 11/06/21 21:59 Last Admin: 09/30/21 05:11 Dose: 3.75 mls/min Documented by: Insulin Aspart (Insulin Aspart Per Unit) 0 units SC ACHS [facility] Stop: 10/23/21 01:39 Last Admin: 09/30/21 08:40 Dose: 4 units Documented by: Insulin Glargine (Insulin Glargine Solostar 100 Units/Ml 3 Ml Pen) 15 units SQ HS [facility] Stop: 10/23/21 01:39 Last Admin: 09/29/21 20:37 Dose: 15 units Documented by: Isosorbide Dinitrate (Isosorbide Dinitrate 20 Mg Tab) 20 mg PO TID@0700,1200,1700 [facility] Stop: 10/23/21 06:59 Last Admin: 09/30/21 07:00 Dose: 20 mg Documented by: Metoprolol Succinate (Metoprolol Succ 50mg Ext Rel Tab) 150 mg PO BID YULI Stop: 10/23/21 00:29 Last Admin: 09/30/21 08:33 Dose: 150 mg Documented by: Miscellaneous (Carbohydrates For Hypoglycemia ) 15 - 30 gm PO UD PRN PRN Reason: Hypoglycemia Protocol Stop: 10/23/21 01:39 Multivitamins/Minerals (Cerovite Adv Formula Tab) 1 tab PO QAM YULI Stop: 10/23/21 08:59 Last Admin: 09/30/21 08:32 Dose: 1 tab Documented by: Nitroglycerin (Nitroglycerin Sl 0.4 Mg/Tab Tab) 0.4 mg SL UD PRN PRN Reason: Chest Pain Stop: 10/23/21 01:39 Pantoprazole Sodium (Pantoprazole 40 Mg Tab) 40 mg PO BID YULI Stop: 10/23/21 08:59 Last Admin: 09/30/21 08:34 Dose: 40 mg Documented by: Rifampin (Rifampin 300 Mg Capsule) 300 mg PO BID YULI Stop: 11/10/21 20:59 Last Admin: 09/30/21 08:33 Dose: 300 mg Documented by: Sacubitril/Valsartan (Valsartan/Sacubitril 26/24mg Tab) 1 tab PO BID YULI Stop: 10/28/21 20:59 Last Admin: 09/30/21 08:33 Dose: 1 tab Documented by: Tamsulosin HCl (Tamsulosin Hcl 0.4 Mg Cap) 0.4 mg PO HS [facility] Stop: 10/23/21 20:59 Last Admin: 09/29/21 20:29 Dose: 0.4 mg Documented by: Tramadol HCl (Tramadol Hcl 50 Mg Tablet) 25 - 50 mg PO Q4H PRN PRN Reason: Pain Stop: 10/23/21 01:39
[2021-09-30] MEDS ORDERED: ENOXAPARIN INJ 120 MG/0.8 ML SYR SQ SCH (13:00)
--- NOTE | 2021-09-30 13:13 | Cardiology Progress Note ---
Date of Service September 30, 2021 Assessment & Plan (1) Fever: (2) Staphylococcus aureus bacteremia: (3) Biventricular automatic implantable cardioverter defibrillator in situ: (4) NICM (nonischemic cardiomyopathy): (5) Chronic HFrEF (heart failure with reduced ejection fraction): Plan: Plan had been to transition to a DOAC to avoid coumadin and labile INR readings while on Rifampin, however, Eliquis, Xarelto, Pradaxa also have interaction with Rifampin. Will therefore continue coumadin and monitor INR carefully. Lovenox bridge in meantime , INR 1.4 DC with plans for 6 weeks of IV Ancef, Rifampin . Repeat MARGA with me week of 11/02/21. Oral lasix resumed. Continue [employer] CHF medications. Admission and Anticipated Discharge Date Admission Date: September 23, 2021 Subjective Patient seen in cardiology follow up. He denies chest pain or shortness of breath. Denies fever. Physical Exam Physical Exam: Temp Pulse Resp BP Pulse Ox 36.4 C L 72 20 131/80 93 09/30/21 12:28 09/30/21 12:28 09/30/21 12:28 09/30/21 12:28 09/30/21 12:28 Constitutional: WD/WN, vitals as above Respiratory: normal respiratory effort, lungs clear to auscultation Cardiovascular: RRR, no murmur, no edema Gastrointestinal (Abdomen): normal bowel sounds, soft, nontender, no hepatosplenomegaly Results & Data ([facility]) Vital Signs (Past 12 Hours) Vital Signs Temp Pulse Resp BP BP Pulse Ox 09/30/21 12:28 36.4 C L 72 20 131/80 93 09/30/21 07:53 36.6 C 72 20 162/89 H 95 09/30/21 03:00 36.7 C 70 16 132/78 94 (1) Fever Fever type: unspecified Qualified Code(s): R50.9 - Fever, unspecified
--- NOTE | 2021-09-30 18:54 | Discharge Summary ---
Date of Service September 30, 2021 Admission HPI Per Admitting Provider History obtained from patient and records. Medical history significant for chronic systolic heart failure secondary to nonischemic cardiomyopathy (EF 30%, TTE 2021) status post biventricular ICD/PPM, PAF on Coumadin, chronic LBBB, nonobstructive CAD, hypertension, hyperlipidemia, Left lung mass, ZOFIA on CPAP, DM2 insulin requiring, CRI (baseline creatinine 1.8 ), chronic anemia (baseline hemoglobin 8-9). Last confinement December 2019 for septic shock secondary to MSSA bacteremia secondary to left foot toe nonhealing wound/osteomyelitis. Patient discharged on cefazolin course. Last week, patient underwent EPS procedure for pacemaker lead malfunction at [facility] under sedation. Patient seen at the ER the day following procedure for fever and body aches. Patient completed COVID-19 vaccination. Blood CS drawn. Patient subsequently sent home. Blood CS subsequently grew MSSA on 1 bottle. Findings communicated to patient's water use inspector. Repeat blood cultures recommended. Outpatient patient staff had trouble reaching patient to relay recommendations as per outpatient notes. Patient underwent elective bronchoscopy at [facility] 2 days ago for left lung mass found on outpatient CT chest 2 months ago. Yesterday, patient noted worsening fever, chills, body aches now associated with dry cough and shortness of breath. No unusual fluid retention. Abdominal discomfort causing emesis worsening cough symptoms. No actual chest pain. Headache from coughing. Patient directed to ER by outpatient providers for further evaluation and to comply with repeat blood cultures recommended by his water use inspector. Vancomycin and cefepime administered at the ER for sepsis. 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 Admission Exam Per Admitting Provider Physical Exam: GENERAL: Slightly uncomfortable, obese, no respiratory distress SKIN: Pallor, warm HEENT: Bespectacled, pale palpebral conjunctivae, no ptosis, dry buccal mucosa NECK : Supple, short neck, no tenderness CHEST : Decreased breath sounds, occasional expiratory wheezes, no tenderness HEART : Tachycardic, no obvious murmurs ABDOMEN: Some distention, nontender EXTREMITIES : Minimal LE swelling, no LE tenderness, no other conspicuous deformities noted NEUROLOGIC : Coherent, no facial asymmetry, no other gross focality Principal Diagnosis Infective endocarditis, sepsis secondary to MSSA bacteremia, nonischemic cardiomyopathy status post implantable cardioverter defibrillator, paroxysmal atrial fibrillation, type 2 diabetes mellitus Discharge Exam Lying in bed comfortably Constitutional well developed, well nourished and + obese; not ill appearing Eyes PERRL, conjunctivae normal, anicteric sclerae ENMT external ear and nose normal, oropharynx normal Neck trachea midline, no thyromegaly Respiratory no respiratory distress Auscultation: lungs clear to auscultation bilaterally; no crackles Cardiovascular Rate/Rhythm: regular rate and regular rhythm; not tachycardic Heart Sounds: normal S1, normal S2 and + murmur (2/6 ESM over precordium) Extremities: no edema Gastrointestinal (Abdomen) Inspection/Auscultation: abdomen not distended Percussion/Palpation: abdomen soft; abdomen nontender Psychiatric A+Ox3, euthymic affect Discharge Data Allergies Allergy/AdvReac Type Severity Reaction Status Date / Time No Known Allergies Allergy Verified 09/22/21 22:30 Consultations 09/22/21 22:30 ED Decision to Admit Stat 09/23/21 09:11 Consult Infectious Diseases Routine 09/23/21 09:12 Consult Cardiology Routine 09/28/21 13:46 Consult Anesthesiology Routine Procedures Performed Operation Date: 09/28/21 07:30 Actual Procedures p Transesophageal Echo - DO ynes Mendez Echo Doppler Complete - DO ynes Mendez Echo Color Flow - Edmund Coleman DO Ordered Studies 09/22/21 21:40 CT abd pelvis wo con Urgent Hospital Course (1) Sepsis: 61-year-old man with PMH of HFrEF 2/2 nonischemic CM [EF 30%, TTE 2021] s/p biventricular ICD/PPM, PAF on Coumadin, chronic LBBB, nonobstructive CAD, HTN, HLD, left lung mass [found on outpatient CT 2 months ago] s/p recent bronchoscopy/biopsy [on 09/21 at [place]], ZOFIA on CPAP, not on home oxygen, DM 2 insulin requiring, CKD [baseline creatinine 1.8], chronic anemia [baseline hemoglobin 8-9] presented to our ED 09/22 [per instruction of outpatient provider] with complaint of increasing cough [dry] and SOB associated with nausea/vomiting/fever with chills/sweating on the day of arrival. Patient has completed COVID-19 vaccination. Infective endocarditis Status post MARGA which showed tricuspid valve vegetations without any evidence of leads vegetation The water use inspector discussed the option of extraction and reimplantation of new device/conservative management for now Head Miller also discussed this with ID specialist he has been The patient is going to have conservative management for now PICC line will be placed and antibiotics will be given as per ID recommendation Discussed with the ID specialist in [place] and following antibiotics to be continued for 6 weeks total Cefazolin 2 g IV every 8 hours to be continued until 11/14/2021 Rifampicin 300 mg p.o. every 8 hours until to be continued 11/14/2021 Weekly CBC and CMP until 11/14/21 Scripts have been given to field case manager Drug interaction with rifampin and anticoagulation Rifampin can decrease the effectiveness of oral anticoagulants After discussion with the pharmacist and the water use inspector he was put on Coumadin can be tightly monitored as an outpatient Discussed with the patient in detailed Any oral anticoagulation cannot be given due to severe interaction with rifampicin and very difficult to manage oral anticoagulation as long as he will be on rifampicin After discussion with the pharmacist, water use inspector and the patient, Lovenox 120 mg subcu twice daily was prescribed as long as the patient will be on rifampicin. As pe Cardiology documentation: -03/2020: Insertion of biventricular pacemaker AICD, right atrial lead, right ventricular lead, coronary sinus lead -Nov, 2019, admitted with sepsis, sensitive staph aureus, felt to be due to diabetic foot wound, ultimately underwent amputation of the second toe of the left foot due to concerns of osteomyelitis by plain x-ray -09/16/2021: Biventricular pacemaker/AICD revision, with extraction of the coronary sinus lead, placement of a septal, His bundle lead, chronic right atrial lead, right ventricular leads placed in 2019 retained, generator change -09/17/2021, low-grade fever, 1/2 blood cultures positive for sensitive staph aureus -09/21/2021, bronchoscopy, GLH, work-up of recently noted 6 cm left lower lobe chest opacity, bronchial washings, cytology negative for infection, or evidence of malignancy. PET scan ordered, yet to be completed -09/23/2021 recurrent fever, 2/2 blood cultures positive for sensitive staph aureus No evidence of foot or toe ulcerations, pain, redness or any inflammation of the joints. He is being managed for the following: Sepsis POA: At admissionWBC elevated, pulse elevated, temperature elevated, HCAP suspected; and CXR w/ left basilar consolidation. Likely HCAP GPC Bacteremia Patient had recent pacer exchange followed by ED visit next day when blood c ulture was drawn and was came back positive for MSSA Sent back to ED 09/22 for further evaluation of MSSA bacteremia, repeat blood culture 09/22 in the ED again positive for MSSA Admitting CXR: Cardiomegaly and AICD with pulmonary vascular congestion. Left basilar consolidation likely pneumonia, radiographic follow-up for resolution needed. Admitting CTAP: No new acute findings. Sepsis likely secondary to HCAP [likely to recent bronchoscopy procedure/likely aspiration] and GPC bacteremia [likely secondary to recent pacer exchange vs lung biopsy] Vancomycin and cefepime given in the ED, Zosyn started 09/23 --> 09/25 Ancef 09/24 ECHO: EF 35 to 40% no evidence of a mass or vegetation. f/u 09/24 blood culture-remain negative Cardiology on board due to recent pacer exchange and bacteremia, plan for MARAG to r/o IE on Tuesday. ID evaluated, MARGA to r/o IE and duration of ATB therapy based on MARGA finding. We will continue intravenous Ancef for now and await further ID recommendation Recommendation is as above Elevated troponin Flat trend at 0.07, likely secondary to sepsis. EKG at admission with paced rhythm. Pt w/ no chest pain Subtherapeutic INR Secondary to Coumadin being held from recent bronchoscopy INR presentation 1.2, trending up PT/INR daily-INR is 1.9 as of 09/26/2021 INR remains therapeutic Plan is to discontinue Coumadin and start Eliquis Will start Eliquis 5 mg twice daily when the INR is less than 1.5 Will give Lovenox 120 mg subcu twice daily Other chronic medical condition: HFrEF, status post biventricular ICD/PPM, PAF on Coumadin, DM 2 insulin requiring, HLD, HTN, CKD, chronic anemia Continue with/resume home medications as and when appropriate. Monitor and replete electrolytes as and when appropriate. Low hemoglobin, FOBT negative, follow-up with iron studies tomorrow, f/u HnH DVT prophylaxis. Subcu Lovenox as long as he will be on rifampicin Full code Likely to be discharged this afternoon Total Time Total Time Spent Total Time Spent (In Minutes): 45 minutes Discharge Plan Discharge Items Patient Disposition: Home - Home Health Services Reason For Visit: SEPSIS Discharge Diagnosis: Infective endocarditis, sepsis secondary to MSSA bacteremia, nonischemic cardiomyopathy status post implantable cardioverter defibrillator, paroxysmal atrial fibrillation, type 2 diabetes mellitus Condition on Discharge: Fair Activity: Resume your previous activity Non-emergency contact: Primary Care Provider Call non-emergency contact if: you have any medication questions and your symptoms worsen Follow-up/Referrals: Beverly Spangler DO [Primary Care Provider] - (Date & Time 10/06/2021 11:00 AM Provider Beverly Spangler DO Department [facility] ) Diet: Carb Consistent or DM2 and Heart Healthy Addtl Attending Provider Instructions: Please take precautions to avoid fall Take your medications including antibiotics as advised You will be taking aspirin 81 mg daily for anticoagulation Please keep appointments with your healthcare providers Pending Studies at Discharge: No Stand-Alone Forms: [employer], Smoking Cessation Medications and DC Order Prescriptions: New rifampin 300 mg Capsule 300 mg PO TID Qty: 90 RF: 0 cefazolin 1 gram recon soln 2 g IV Q8H Qty: 25 RF: 0 aspirin 81 mg capsule 81 mg PO DAILY Qty: 30 RF: 0 Continued atorvastatin 80 mg tablet 80 mg PO QAM RF: 0 nitroglycerin [Nitrostat] 0.4 mg Tablet, Sublingual 0.4 mg sublingual UD PRN (Reason: Chest Pain) RF: 0 Men's Multivitamin 400-20-300 mcg Tablet 1 tab PO QAM RF: 0 ferrous sulfate [Iron (ferrous sulfate)] 325 mg (65 mg iron) Tablet 325 mg PO BID RF: 0 metoprolol succinate 100 mg Tablet Extended Release 24 Hr 150 mg PO BID RF: 0 tamsulosin 0.4 mg Capsule 0.4 mg PO HS RF: 0 furosemide 80 mg Tablet 80 mg PO QAM RF: 0 pantoprazole 40 mg Tablet,Delayed Release (Dr/Ec) 40 mg PO BID RF: 0 isosorbide dinitrate 20 mg Tablet 20 mg PO TID RF: 0 metformin 500 mg tablet 500 mg PO BID RF: 0 Breo Ellipta 200-25 mcg/dose blister with device 1 ea INHALATION QAM RF: 0 albuterol sulfate [Ventolin HFA] 90 mcg/actuation HFA aerosol inhaler 2 puff INHALATION Q4 PRN (Reason: cough,sob,wheeze) RF: 0 benzonatate 100 mg capsule 100 mg PO TID PRN (Reason: Cough) RF: 0 Basaglar KwikPen U-100 Insulin 100 unit/mL (3 mL) insulin pen 36 unit SUBCUT HS RF: 0 Entresto 24-26 mg tablet 1 tab PO BID RF: 0 Trulicity 4.5 mg/0.5 mL pen injector 4.5 mg SUBCUT WK RF: 0 ezetimibe 10 mg tablet 10 mg PO DAILY RF: 0 Discontinued warfarin 4 mg Tablet 4 - 6 mg PO UD RF: 0 Discharge Orders: Discharge Order (Routine); Ordered 09/30/21 Ordered By: Nasir Myles Admission Data Admit Date/Time: 09/23/21 00:28 Attending Provider: Delvin Sparks Admit Provider: Ronnie Trivedi Primary Care Provider: Beverly Spangler Other Providers: Ronnie Trivedi ; Chad Rice ; Sallie Guadarrama ; Vasiliy Frank I. ; Fortino Sibley II ; Kimberly Barroso ; Gunner Montilla ; Macario Messina ; German Reed ; Vadim Duron ; Arnold Garcia ; [place] Other Interventions: Discharge Summary Assessment (RN) Last Done: 09/30/21 13:36
== END 2021-09-30 16:44 | disposition home health service (06) | DRG 314 ==
LOC: ED 21:09 → SUATTDRO 09-23 00:28 → 2N 09-23 00:28
PROC: CLS.TEE (2021-09-28 07:30)

== ENCOUNTER 2023-08-20 12:34 | Inpatient (IN) ==
--- OUTSIDE RECORDS SUMMARY | 2023-08-20 12:40 | External Medical Summary | Summary of Care ---
Author Name Unknown Organization [facility] Address [address] [facility] [address] Phone [phone] Care Team Providers Care Box Toe Buffer Name Role Phone Dion Cardoso MD Primary Care Provider [phone]- [phone] Reason for Visit * Reason Onset Date Comments Pacemaker Clinic 07/18/2023 Advisory Encounter Details Date Type Department Care Team (Late st Contact Info) Description 07/18/2023 Telephone Cardiology, [facility] [address] [place] [address] [place], Pacer Clinic [facility] [address] [place] [address] Pacemaker Clinic (Advisory) Allergies No known active allergiesdocumented as of this encounter (statuses as of 07/27/2023) Medications Medication Sig Dispensed Refills Start Date End Date Status CENTRUM SILVER ULTRA MENS PO TABSIndications:Rout ine medical exam two daily 0 04/02/2013 Active ONETOUCH ULTRA SYSTEM W/DEVICE KITIndications:DM type 2, not at goal (HCC) Use up to four times a day as directed 1 Kit 0 07/31/2013 Active ONETOUCH DELICA LANCETS 33G MISCIndications:DM type 2, not at goal (HCC) USE UP TO 4 TIMES A DAY DIRECTED 100 Each 1 09/03/2014 Active nitroglycerin (NITROSTAT) 0.4 MG SUBLIndications:Idio pathic cardiomyopathy (HCC) One tablet under tongue if needed for chest pain. May repeat 3 times. If chest pain continues, call [phone] Tab 1 01/25/2017 Active Pantoprazole Sodium 40 MG Oral Tablet Delayed Release (Protonix) TAKE 1 TABLET BY MOUTH TWICE A DAY BEFORE MEALS 180 Tablet 3 05/23/2021 Active CPAP every night at bedtime. 0 Active Fluticasone Propionate 50 MCG/ACT Nasal SuspensionIndication s:Cough, persistent Administer 2 Sprays into each nostril daily. 16 g 1 07/29/2021 Active Additional Information Patient not taking.Reported on 06/09/2022 Probiotic Acidophilus BioBeads Oral Capsule Take by mouth 1 Capsule three times a day with meals . 0 Active Ventolin HFA 108 (90 Base) MCG/ACT Inhalation Aerosol Solution Inhale by mouth 2 Puffs every 4 hours as needed for Cough, Shortness of Breath or Wheezing. 18 g 3 08/19/2021 Active metFORMIN HCl 500 MG Oral Tablet (Glucophage)Indicati ons:Type 2 diabetes mellitus with hemoglobin A1c goal of less than 7.0% (HCC) Take by mouth 1 Tablet 2 times a day with morning and evening meals . 180 Tablet 3 09/09/2021 Active OneTouch Ultra In Vitro Strip (Glucose Blood)Indications:DM type 2, not at goal ([facility]) USE UP TO FOUR TIMES A DAY DIRECTED DX E11.9 400 Strip 3 12/02/2021 Active Spironolactone 25 MG Oral Tablet (Aldactone)Indicatio ns:Heart failure, systolic, due to idiopathic cardiomyopathy (HCC) Take 0.5 Tablets by mouth in the morning. 90 Tablet 3 02/12/2022 Active Fluticasone-Salmeter ol 250-50 MCG/ACT Inhalation Aerosol Powder Breath Activated (Wixela Inhub) Inhale by mouth 1 Puff in the morning AND 1 Puff before bedtime. 60 Each 12 03/09/2022 Active Aspirin Low Dose 81 MG Oral Tablet Delayed Release Take by mouth 1 Tablet in the morning. 90 Tablet 3 03/30/2022 Active Insulin Glargine Solostar 100 UNIT/ML Subcutaneous Solution Pen-injector (Basaglar KwikPen) Inject 36 units under the skin once daily at bedtime. Dx E11.9 45 mL 3 04/08/2022 Active BD Pen Needle Short U/F 31G X 8 MM (Insulin Pen Needle)Indications:T ype 2 diabetes mellitus with hemoglobin A1c goal of less than 7.0% ([facility]) USE DIRECTED DAILY WITH LANTUS PEN 100 Each 3 04/08/2022 Active Ferrous Sulfate 325 (65 Fe) MG Oral Tablet (Feosol) TAKE 1 TABLET BY MOUTH TWICE A DAY 64 Tablet 5 07/23/2022 Active Metoprolol Succinate ER 100 MG Oral Tablet Extended Release 24 Hour (toPROL XL)Indications:Heart failure, systolic, due to idiopathic cardiomyopathy (HCC),HTN, goal below 140/90 TAKE 1 AND 1/2 TABLETS BY MOUTH 2 TIMES A DAY 270 Tablet 3 07/29/2022 Active Furosemide 80 MG Oral Tablet (Lasix)Indications:H eart failure, systolic, due to idiopathic cardiomyopathy ([facility]) Take 1 Tablet by mouth in the morning and 1 Tablet before bedtime. 180 Tablet 3 07/29/2022 Active Tamsulosin HCl 0.4 MG Oral Capsule (Flomax) TAKE 1 CAPSULE BY MOUTH EVERY DAY 90 Capsule 3 08/13/2022 Active Atorvastatin Calcium 80 MG Oral Tablet (Lipitor)Indications :Dyslipidemia, goal LDL below 70 TAKE 1 TABLET BY MOUTH EVERY DAY 90 Tablet 3 08/13/2022 Active Trulicity 4.5 MG/0.5ML Subcutaneous Solution Pen-injector (Dulaglutide) INJECT ONE PEN (4.5MG) UNDER THE SKIN ONCE A WEEK 6 mL 1 09/15/2022 Active Cephalexin 500 MG Oral Capsule (Keflex) TAKE BY MOUTH 1 CAPSULE IN THE MORNING AND 1 CAPSULE BEFORE BEDTIME. 60 Capsule 11 11/26/2022 Active Ezetimibe 10 MG Oral Tablet (Zetia)Indications:D yslipidemia, goal LDL below 70 TAKE 1 TABLET BY MOUTH EVERY DAY IN THE MORNING 90 Tablet 1 12/17/2022 Active Jardiance 10 MG Oral Tablet (Empagliflozin)Indic ations:Type 2 diabetes mellitus with hemoglobin A1c goal of less than 7.0% ([facility]) TAKE 1 TABLET BY MOUTH EVERY DAY IN THE MORNING 30 Tablet 0 12/27/2022 Active Entresto 97-103 MG Oral Tablet (sacubitril-valsarta n 97-103 mg per tab)Indications:Type 2 diabetes mellitus with hemoglobin A1c goal of less than 7.0% ([facility]),HTN, goal below 140/90,Dyslipidemia, goal LDL below 70 TAKE 1 TABLET BY MOUTH EVERY DAY IN THE MORNING AND BEFORE BEDTIME 180 Tablet 3 02/08/2023 Active documented as of this encounter (statuses as of 07/27/2023) Active Problems Problem Noted Date Diagnosed Date PAF (paroxysmal atrial fibrillation) 10/03/2022 Severe obesity with body mas s index (BMI) of 35.0 to 39.9 with serious comorbidity 07/22/2022 Anticoagulation management encounter 04/28/2022 Small airways disease 12/04/2021 Diffusion capacity of lung (dl), decreased 12/04 Chronic kidney disease, stage 3b 04/20/2021 Overview: Per CKD protocol S/P amputation of lesser toe, right 07/29/2017 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 11/02/2016 HTN, goal below 140/90 12/22/2015 Overview: Per HTN Protocol Heart failure, systolic, due to idiopathic cardi omyopathy 09/09/2015 Dyslipidemia, goal LDL below 70 06/17/2015 History of Lyme disease 03/24/2014 Type 2 diabetes mellitus wit h hemoglobin A1c goal of less than 7.0% 03/11/2013 Overview: ICD-10 update of inactive term documented as of this encounter (statuses as of 07/27/2023) Resolved Problems Problem Noted Date Diagnosed Date Resolved Date Chronic kidney disease, stage 3a 09/15/2020 04/23/2021 Overview: Per CKD protocol Encounter for long-term (cur rent) use of medications 07/29/2017 02/01/2018 Morbid obesity 07/18/2017 07/29/2017 Preop examination 01/25/2017 07/29/2017 Diabetic ulcer of toe of rig ht foot associated with diabetes mellitus due to underlying condition 01/18/2017 07/29/2017 Hammertoe of right foot 01/18/201707/11 Viral URI with cough 11/11/2016 017 Obesity, Class I, BMI 30.0-3 4.9 (see actual BMI) 11/02/2016 01/25/2017 Overview: bmi= 33.78 4/25/17 Edema of foot 09/09/2016 01/25/2017 Edema of lower extremity 09/09/2016 Shortness of breath 09/09/2016 01/26/20 Type 2 diabetes mellitus wit h diabetic toe ulcer 02/13/2016 09/09/2016 Obesity, Class I, BMI 30.0-3 4.9 (see actual BMI) 06/17/2015 09/09/2016 Overview: bmi= 32.61 06/17/15 HTN, goal below 140/80 06/17/201512/24 Overview: Per HTN Protocol Type 2 diabetes mellitus wit h hemoglobin A1c goal of 7.0%-8.0% 03/13/2015 06/17/2015 Overview: ICD-10 update of inactive term HTN, goal below 140/90 09/26/201406/17 Cerumen impaction 08/16/2014 07/29/2017 DM type 2 causing renal disease, not at goal 4 06/17/2015 Microalbuminuria 05/10/2014 06/17/2015 Type 2 diabetes mellitus wit h hemoglobin A1c goal of less than 7.0% 03/25/2014 05/10/2014 Overview: ICD-10 update of inactive term Heart failure, etiology unknown 03/21/2014 09/09/2015 Cardiomyopathy 03/21/2014 11/02/2016 Lyme disease 03/21/2014 07/29/2017 Left bundle branch block 03/13/2014 Obesity, Class I, BMI 30.0-3 4.9 (see actual BMI) 02/07/2014 11/02/2016 Overview: bmi= 33.97 02/07/14 Special screening for malign ant neoplasm of prostate 11/01/2013 11/02/2016 HTN, goal below 140/80 08/23/201309/26 Type 2 diabetes mellitus wit h hemoglobin A1c goal of less than 7.0% 08/21/2013 11/01/2013 Overview: ICD-10 update of inactive term Obesity, Class I, BMI 30.0-3 4.9 (see actual BMI) 04/02/2013 09/09/2016 Overview: bmi= 33.45 04/02/13 Screen for colon cancer 04/02/201310/10 Screening for prostate cancer 04/02/2013 11/02/2016 Type 2 diabetes mellitus wit h hemoglobin A1c goal of less than 7.0% 05/22/2013 Overview: ICD-10 update of inactive term HTN, goal below 130/80 08/23 Dyslipidemia, goal LDL below 100 06/17/2015 DM type 2, not at goal 05/10 Other primary cardiomyopathies 09/11/2014 documented as of this encounter (statuses as of 07/27/2023) Immunizations Name Administration Dates Next Due COVID-19 mRNA, LNP-s, No Pre serve, 2-Dose Series ([employer]) 05/15/2021,10/31/2020,10/04/2020 COVID-19, LNP-s, No Preserve , [place]yon-sucrose, Ages 12+ (Pfizer) 12/08/2021 Covid-19, Mrna, Lnp-s, Pf, B ivalent, 30 Mcg, IM, 12 yrs and above (Pfizer) 06/18/2022 Pneumococcal Polysaccharide PPV23 (Pneumovax) 01/09/2015 Seasonal Influenza, PF, 6 M & above, IM , (FluLaval or Fluzone) 04/08/2023,03/23/2022,04/10/2021,03/11,04/16/2019,04/04/2018,05/31/20 17 04/16/2020 Seasonal Influenza, Quadriva lent, No Preserve, IM 05/13/2016 Seasonal Influenza, Split, I IV3, With Preserve, Inj 03/13/2015,03/21/2014,05/22/2013 documented as of this encounter Social History Tobacco Use Types Packs/Day Years Used Date Smoking Tobacco: Never Smokeless Tobacco: Former Comments:quit chew late 80s Alcohol Use Standard Drinks/Week Comments No 0 (1 standard drink = 0.6 oz pur e alcohol) none PHQ-2 Answer Date Recorded PHQ Adult Total Score 0 03/23/2022 Hunger Vital Sign Answer Date Recorded Within the past 12 months, y ou worried that your food would run out before you got the money to buy more. Never true 07/22/19 23 Within the past 12 months, t he food you bought just didn't last and you didn't have money to get more. Never true 07/22/2022 Sex and Gender Information Value Date Recorded Sex Assigned at Male 11/06/2018 8:29 AM EDT Gender Identity Male 11/06/2018 8:29 AM EDT Sexual Orientation Straight 11/06/2018 8: 29 AM EDT Job Start Date Occupation Industry Not on file Not on file Not on file documented as of this encounter Miscellaneous Notes * Telephone Encounter - Beto Prado LPN - 07/27/2023 12:49 PM EST Please see patient's MyChart reply. * Telephone Encounter - Cristy Garcia LPN - 07/18/2023 8:28 AM EST MyG message and letter mailed to patient regarding ICD advisory. documented in this encounter Plan of Treatment Scheduled Procedures Name Priority Associated Diagnoses Date/Ti me COLONOSCOPY FLEXIBLE PROXIMAL DIAGNOSTIC Recall History of colon polyps Health Maintenance Due Date Last Done Comments HIV Screening 1975 Zoster Vaccines (1 of 2) 2012 Pneumococcal Vaccine: Pediatrics (0 to 5 Years) and At-Risk Patients (6 to 64 Years) (2 - PCV) 01/10/2016 01/09/2015 Diabetic Eye Exam 09/29/2021 09/29/2020, , 08/07/2015, Additional history exists Diabetic Foot Exam 04/10/2022 04/10/2021, 0 04/07/2020, 11/06/2018, Additional history exists Hepatitis B (1 of 3 - Risk 3-dose series) 2022 CKD PHOS USE SMARTSET 45582 01/26/2023 0703/2022, 04/17/2021, 12/13/2019 COVID-19 Vaccine (2022- season) 2023 06/18/2022, 12/08/2021, 05/15/2021, Additional history exists Depression Screening 03/23/2023 03/23/2022, 01/26/20 17 HbA1c 04/14/2023 10/13/2022, 07/12, 05/18/2022, Additional history exists B-12 07/30/2023 07/30/2022, 02/2021, 06/03/2020, Additional history exists GFR 08/11/2023 02/08/2023, 01/08, 10/13/2022, Additional history exists CKD HGB USE SMARTSET 96189 02/09/202402/08, 07/30/2022, 01/26/2022, Additional history exists Albumin/Creatinine Ratio 06/14/2024 023, 07/30/2022, 11/30/2021, Additional history exists COLONOSCOPY-EVERY 5 YRS AGES 18-100 05/08/2025 05/08/2020, 11/08/2014, 11/08/2014 Lipid Panel 07/30/2027 07/30/2022, 02/2021, 04/14/2020, Additional history exists DTaP,Tdap,and Td Vaccines (2 - Td or Tdap) 02/02/2028 02/01/2018 (Declined) Influenza Vaccine (FLU shot) Completed , 03/23/2022, 04/10/2021, Additional history exists GARDASIL-HPV IMMUNIZATION SERIES Aged Out No longer eligible based on patient's age to complete this topic MENINGOCOCCAL (MENACTRA/MENVEO) Aged Out No longer eligible based on patient's age to complete this topic documented as of this encounter Medical Devices Not on filedocumented as of this encounter Care Teams Box Toe Buffer Relationship Specialty Start Date End Date Dion Cardoso MD [address] [place] [address] PCP - General Family Medicine 8/30/22 documented as of this encounter
--- OUTSIDE RECORDS SUMMARY | 2023-08-20 12:40 | External Medical Summary | Summary of Care ---
Author Name Unknown Organization [facility] Address [address] [facility] [address] Phone [phone] Care Team Providers Care Heavy Repairer Name Role Phone Dion Cardoso MD Primary Care Provider [phone]- [phone] Reason for Referral * Evaluate & Treat - Unlimited Visits (Within 10 days (routine)) - Pending Review Specialty Diagnoses / Procedures Referred By Contact Referred To Contact Cardiovascular Medicine / Cardiology Diagnoses Congestive heart failure (HCC) Jorge Garrett MD [address] [place] [address] Referral ID Status Reason Start Date Expiration Date Visits Requested Visits Authorized [id number] Pending Review Specialty Services Required 08/18/[phone] Question Answer Referral Priority Within 10 days (routine) Where should this appointment be scheduled? [facility] To which of the following clinics are you referring your patient? General Cardiology Clinic Comments Notes/ref scanned in [facility] Encounter Details Date Type Department Care Team (Late st Contact Info) Description 08/18/2023 Orders Only Access [facility], [place] [address] [place] [address] Ext *DO NOT REMOVE THIS DEPARTMENT* [place] [id number] Request, External Referral Congestive heart failure (HCC)* Allergies No known active allergiesdocumented as of this encounter (statuses as of 08/18/2023) Medications Medication Sig Dispensed Refills Start Date End Date Status CENTRUM SILVER ULTRA MENS PO TABSIndications:Rout ine medical exam two daily 0 04/02/2013 Active Radar CorporationTOUCH ULTRA SYSTEM W/DEVICE KITIndications:DM type 2, not [...] (Glucose Blood)Indications:DM type 2, not at goal (HCC) USE UP TO FOUR TIMES A DAY [...] hemoglobin A1c goal of less than 7.0% ([facility]) USE DIRECTED DAILY WITH LANTUS PEN 100 [...] eart failure, systolic, due to idiopathic cardiomyopathy (HCC) Take 1 Tablet by mouth in the [...] A1c goal of less than 7.0% (HCC) TAKE 1 TABLET BY MOUTH EVERY DAY IN THE MORNING 30 Tablet 0 12/27/2022 Active Entresto 97-103 MG Oral Tablet (sacubitril-valsarta n 97-103 mg per tab)Indications:Type 2 diabetes mellitus with hemoglobin A1c goal of less than 7.0% (HCC),HTN, goal below 140/90,Dyslipidemia, goal LDL below 70 TAKE 1 TABLET BY MOUTH EVERY DAY IN THE MORNING AND BEFORE BEDTIME 180 Tablet 3 02/08/2023 Active documented as of this encounter (statuses as of 08/18/2023) Active Problems Problem Noted Date Diagnosed Date [...] as of this encounter (statuses as of 08/18/2023) Resolved Problems Problem Noted Date Diagnosed Date [...] actual BMI) 11/02/2016 01/25/2017 Overview: bmi= 33.78 11/02/16 Edema of foot 09/09/2016 01/25/2017 Edema of lower extremity 09/09/2016 Shortness of breath 09/09/2016 01/26/20 17 Type 2 diabetes mellitus wit h diabetic [...] as of this encounter (statuses as of 08/18/2023) Immunizations Name Administration Dates Next Due COVID-19 mRNA, LNP-s, No Pre serve, 2-Dose Series ([employer]) 05/15/2021,10/31/2020,10/04/2020 COVID-19, LNP-s, No Preserve , Kenyon-sucrose, [...] on file documented as of this encounter Plan of Treatment Scheduled Procedures Name Priority Associated Diagnoses Date/Ti me COLONOSCOPY FLEXIBLE PROXIMAL DIAGNOSTIC Recall History of colon polyps Scheduled Referrals Name Type Priority Associated Diagnoses Orde r Schedule CARDIOLOGY REFERRAL OP Referral Within 10 days (routine) Congestive heart failure (HCC) Ordered: 08/18/2023 Health Maintenance Due Date Last Done Comments [...] 3-dose series) 2022 CKD PHOS USE SMARTSET 12692 01/26/202301/08, 04/17/2021, 12/13/2019 COVID-19 Vaccine ( season) 2023 06/18/2022, 12/08/2021, 05/15/2021, Additional history exists Depression Screening 03/23/2023 03/23/2022, 01/26/20 17 HbA1c 04/14/2023 10/13/2022, 07/12, 05/18/2022, Additional history exists B-12 07/30/2023 07/30/2022, 02/2021, 06/03/2020, Additional history exists GFR 08/11/2023 02/08/2023, 01/08, 10/13/2022, Additional history exists CKD HGB USE SMARTSET 73831 02/09/202402/08, 07/30/2022, 01/26/2022, Additional history exists Albumin/Creatinine [...] Not on filedocumented as of this encounter Visit Diagnoses Diagnosis Congestive heart failure (HCC)- Primary Congestive heart failure, unspecified documented in this encounter Care Teams Heavy Repairer Relationship Specialty Start Date End Date Dion Cardoso MD [address] [place] [facility] [place] [address] PCP - General Family Medicine 03/09/22 documented as of this encounter
--- OUTSIDE RECORDS SUMMARY | 2023-08-20 12:40 | External Medical Summary | Summary of Care ---
Author Name Unknown Organization [facility] Address [address] [facility] [address] Phone [phone] Care Team Providers Care Direct Service Professional Name Role Phone Dion Cardoso MD Primary Care Provider +1- [phone] Reason for Visit * Reason Onset Date Comments Pacemaker Clinic 07/18/2023 Advisory Encounter Details Date Type Department Care Team (Late st Contact Info) Description 07/18/2023 Telephone Cardiology, [facility] [address] [place] [address] [place], Pacer Clinic [facility] [address] [place] [address] Pacemaker Clinic (Advisory) Allergies No known active [...] (Glucose Blood)Indications:DM type 2, not at goal ([facility]) USE UP TO FOUR TIMES A DAY [...] hemoglobin A1c goal of less than 7.0% ([facility]) USE DIRECTED DAILY WITH LANTUS PEN 100 [...] eart failure, systolic, due to idiopathic cardiomyopathy ([facility]) Take 1 Tablet by mouth in the [...] hemoglobin A1c goal of less than 7.0% ([facility]) TAKE 1 TABLET BY MOUTH EVERY DAY IN THE MORNING 30 Tablet 0 12/27/2022 Active Entresto 97-103 MG Oral Tablet (sacubitril-valsarta n 97-103 mg per tab)Indications:Type 2 diabetes mellitus with hemoglobin A1c goal of less than 7.0% ([facility]),HTN, goal below 140/90,Dyslipidemia, goal LDL below 70 [...] mRNA, LNP-s, No Pre serve, 2-Dose Series ([employer]) 05/15/2021,10/31/2020,10/04/2020 COVID-19, LNP-s, No Preserve , Kenyon-sucrose, [...] 3-dose series) 2022 CKD PHOS USE SMARTSET 33537 01/26/2023 0703/2022, 04/17/2021, 12/13/2019 COVID-19 Vaccine (2022- season) 2023 06/18/2022, 12/08/2021, 05/15/2021, Additional history exists Depression Screening 03/23/2023 03/23/2022, 01/26/20 17 HbA1c 04/14/2023 10/13/2022, 07/12, 05/18/2022, Additional history exists B-12 07/30/2023 07/30/2022, 02/2021, 06/03/2020, Additional history exists GFR 08/11/2023 02/08/2023, 01/08, 10/13/2022, Additional history exists CKD HGB USE SMARTSET 59359 02/09/202402/08, 07/30/2022, 01/26/2022, Additional history exists Albumin/Creatinine [...] filedocumented as of this encounter Care Teams Direct Service Professional Relationship Specialty Start Date End Date Dion Cardoso MD [address] [place] [address] PCP - General Family Medicine 8/30/22 documented as of this encounter
--- NOTE | 2023-08-20 14:16 | XRay Report ---
SINGLE VIEW CHEST CLINICAL HISTORY: Atypical chest pain. FINDINGS: A PA chest radiograph is compared to study dated 09/28/2021. A 3-lead cardiac AICD is unchan ged in position and partially obscures the left upper chest. The heart is enlarged and noting atheros clerotic calcification of the thoracic aorta. The pulmonary vasculature is noncongested. There is mil d elevation of the right hemidiaphragm and bibasilar atelectasis. The lungs and pleural spaces are ot herwise clear. No pneumothorax is seen. The skeletal structures are osteopenic. The bony thorax is gr ossly intact. IMPRESSION: 1. Cardiomegaly and AICD without radiographic evidence of congestive failure. 2. No airspace consolidation or pleural effusion is identified. ACT 112: Negative or not required by law. Electronically signed by: Wallace Alexander M.D. 08/20/2023 2:14 PM
[2023-08-20 14:27] LABS: Basophils # (auto) 0.04 K/uL (0.00-0.20); Basophils % (auto) 0.3 %; Eosinophils # (auto) 0.07 K/uL (0.00-0.50); Eosinophils % (auto) 0.6 %; Hematocrit (blood only) 35.5 % (42.0-52.0); Hemoglobin 11.7 g/dl (14.0-18.0); Immature Granulocytes # (auto) 0.05 K/uL (0.01-0.20); Immature Granulocytes % (auto) 0.4 %; Lymphocytes # (auto) 1.22 K/uL (1.20-3.40); Lymphocytes % (auto) 10.6 %; Mean Corpuscular Hemoglobin 28.7 pg (25.0-34.0); Mean Corpuscular Volume 87.2 fL (80.0-100.0); Mean Platelet Volume 10.2 fL (9.4-12.4); Monocytes % (auto) 7.8 %; Neutrophils # (auto) 9.21 K/uL (1.40-6.50); Neutrophils % (auto) 80.3 %; Platelet Count 282 K/uL (130-400); RDW Standard Deviation 44.8 fL (36.4-46.3); Red Blood Count 4.07 M/uL (4.70-6.10); White Blood Count 11.49 K/ul (4.8-10.8)
[2023-08-20 14:43] LABS: Alanine Aminotransferase 19 U/L (7-52); Albumin Level 3.5 gm/dl (3.4-5.0); Alkaline Phosphatase 102 U/L (34-104); Anion Gap 10 (3-11); Aspartate Aminotransferase 15 U/L (13-39); BUN Creatinine Ratio 25.1 (10-20); Bilirubin,Total 0.6 mg/dl (0.2-1.0); Blood Urea Nitrogen 50 mg/dl (6-23); Calcium 8.7 mg/dl (8.6-10.3); Carbon Dioxide 25 mmol/L (21-32); Chloride 99 mmol/L (98-107); Est GFR (African American) 40.8 ml/min; Est GFR (Non-African American) 35.2 ml/min; Globulin 3.6 gm/dl (2.5-4.0); Glucose 199 mg/dl (70-99(Fasting)); Sodium 134 mmol/L (136-145); Total Protein 7.1 gm/dl (6.0-8.3)
[2023-08-20 14:58] LABS: INR 1.1 (0.9-1.1); Partial Thromboplastin Ratio 1.2; Partial Thromboplastin Time 35 Seconds (21-31); Prothrombin Time 11.8 Seconds (9.0-12.0)
--- NOTE | 2023-08-20 16:29 | Emergency Department Note ---
Impression & Plan Swelling of both lower extremities ED Provider Note NAME: VINCE MAGALLANES AGE: 63 SEX: M : 1960 ARRIVES VIA: Walk-In INFORMANT: Patient, ED PROVIDER(S): Jack William MD CHIEF COMPLAINT: Bilateral leg swelling HPI: This is a 63-year-old male presenting for bilateral leg swelling. He states that he has noticed that since Tuesday. He notes that his right lower extremity is more swollen than his left lower extremity. He notes his right lower extremity swelling towards the ankle as well as This Is Excruciatingly Painful. He Has Noticed 3 to 4 Pounds of Weight Gain. He Saw His PCP Who Increased His Lasix Dosing to 160 Mg in the A.M. and 80 Mg P.M. He Has Not Peed Any More Or Less Than Usual. He Notes No Shortness of Breath, Chest Pain, Fever, Chills. He Notes No Trouble with Ambulation Including Exertional Dyspnea. Does Have a Previous History of CHF Which Is Does Not Feel like. ROS: See above HPI for pertinent positives & negatives. A total of 10 systems reviewed and were otherwise negative. PAST MEDICAL HISTORY: See Below PAST SURGICAL HISTORY: See Below FAMILY HISTORY: See Below SOCIAL HISTORY: See Below HOME MEDICATIONS: See Below ALLERGIES: See Below VITALS: See Below PHYSICAL EXAMINATION: General: resting comfortably in no acute distress Head: Normocephalic and atraumatic Eyes: Normal inspection, extraocular muscles intact Ear, nose, throat: Normal external exam Neck: Normal range of motion Respiratory: lungs clear to auscultation bilaterally Cardiovascular: Regular rate/rhythm, no murmur GI: soft, nontender, no guarding or rebound Extremities: nontender, moves all extremities, 1+ edema to left lower extremity, 2+ pitting tense edema to right lower extremity, pulses intact Neuro: The patient awake and alert, appropriately conversive, no focal deficits, symmetric faces Skin: Warm, dry, and intact MEDICAL DECISION MAKING: This is a 63-year-old male presents for bilateral lower extremity swelling. Patient's right lower extremity is significantly more swollen than his left lower extremity. Patient is on Eliquis making DVT unlikely however with this unilateral swelling that is new, will check for DVT. Otherwise blood work was sent at triage which does show a significant TITA. -Otherwise consider acute on chronic CHF causing bilateral lower extremity swelling, consider DVT, consider PE, ACS, cellulitis or abscess -There is significant delay with ultrasound as they are understaffed. Will admit patient for his bilateral extremity swelling and needing diuresis as well as TITA. Currently still awaiting DVT study. Differential diagnosis: DVT, CHF, cellulitis ER treatment provided: See below Diagnostics interpreted by me: ECG: None Cardiac Monitoring: An order was placed for continuous cardiac monitoring. The monitor shows a rate of 96 with sinus rhythm. Laboratory studies: As stated above and show below. Imaging studies: See below. Past Med/Surg History Medical History (Updated 08/21/23 @ 00:25 by Jack William MD) LBBB (left bundle branch block) chronic per [facility] cardio Endocarditis 09/29; "right sided endocarditis" Sleep apnea cpap at night History of recent hospitalization [facility] September 2021 for MSSA sepsis. discharged with PICC line in the right arm and IV abx until 11/14/21 per records. H/O needle biopsy lung (09/2021) at [facility] - inconclusive result Diabetes mellitus, type 2 IDDM Hyperlipidemia ICD (implantable cardioverter-defibrillator) in place meditronic placed 07/2019 Atrial fibrillation no cardioversion Anemia chronic anemia. Hypertension Renal insufficiency follows with PCP Obesity Dyslipidemia Diabetic neuropathy bilateral feet Splenic infarct NICM (nonischemic cardiomyopathy) BiV ICD EF 35-40% 09/24/2021 CHF (congestive heart failure) EF 35-40% 09/24/21 Surgical History S/P PICC central line placement in place Right arm (IV abx treatment until 11/14/21) History of bronchoscopy with lung biopsy S/P cardiac pacemaker procedure replaced 09/16/[address] monroy Status post amputation of toe of left foot History of repair of left rotator cuff History of cardiac cath 2018 @ [facility], no stents History of esophagogastroduodenoscopy (EGD) last done 01/15/2020 [place] teeth extracted Presence of biventricular implantable cardioverter-defibrillator (ICD) Status post amputation of toe of right foot History of colonoscopy Family History Father Heart disease Other No family history of adverse response to anesthesia Social History Smoking Status: Never smoker Second Hand Exposure: No; Do You Dip or Chew Tobacco: No; Hx Alcohol Use: No Hx Substance Use: No Preferred Language: Slovak Communication Ability: Effective Technical Illustrator 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: No Beliefs That Will Affect Care: None marital status: Single Current Living Situation: Alone Feels Safe at Home: Yes Assistive Devices: CPAP and Glasses Allergies Allergies Allergy/AdvReac Type Severity Reaction Status Date / Time No Known Allergies Allergy Verified 08/20/23 16:50 Home Meds Home Medications Medication Instructions Recorded Confirmed atorvastatin 80 mg tablet 80 mg PO QAM 11/26/19 08/20/23 [id number]-[id number] acid 400 1 tab PO QAM 11/26/19 08/20/23 mcg-vit K 20 mcg-lycop 300 mcg tablet (Men's Multivitamin) nitroglycerin 0.4 mg sublingual 0.4 mg sublingual UD PRN Chest Pain 11/26/19 08/20/23 tablet (Nitrostat) ferrous sulfate 325 mg (65 mg 325 mg PO BID 01/11/20 08/20/23 iron) tablet (Iron (ferrous sulfate)) furosemide 80 mg tablet 80 mg PO BID 05/01/20 08/20/23 metoprolol succinate 100 mg 100 mg PO QAM 05/01/20 08/20/23 tablet,extended release 24 hr pantoprazole 40 mg tablet,delayed 40 mg PO BID 05/01/20 08/20/23 release tamsulosin 0.4 mg capsule 0.4 mg PO HS 05/01/20 08/20/23 albuterol sulfate 90 mcg/actuation 2 puff inhalation Q4 PRN 09/22/21 08/20/23 aerosol inhaler (Ventolin HFA) cough,sob,wheeze dulaglutide 4.5 mg/0.5 mL 4.5 mg subcut WK 09/22/21 08/20/23 subcutaneous pen injector (Trulicity) ezetimibe 10 mg tablet 10 mg PO QAM 09/22/21 08/20/23 fluticasone furoate 200 1 ea inhalation QAM 09/22/21 08/20/23 mcg-vilanterol 25 mcg/dose inhalation powder (Breo Ellipta) insulin glargine 100 unit/mL (3 44 unit subcut HS 09/22/21 08/20/23 mL) subcutaneous pen (Basaglar KwikPen U-100 Insulin) metformin 500 mg tablet 500 mg PO BID 09/22/21 08/20/23 sacubitril 24 mg-valsartan 26 mg 1 tab PO BID 09/22/21 08/20/23 tablet (Entresto) aspirin 81 mg capsule 81 mg PO QAM 11/02/21 08/20/23 apixaban 2.5 mg tablet (Eliquis) 2.5 mg PO BID 08/20/23 08/20/23 cyanocobalamin (vitamin B-12) 1,000 mcg PO QAM 08/20/23 08/20/23 1,000 mcg tablet (Vitamin B-12) lactobacillus combination no.4 3 3,000 mmu cells PO QAM 08/20/23 08/20/23 billion cell capsule (Probiotic) Results & Data (ED) Vital Signs Vital Signs - 24 hr 08/20/23 13:32 08/20/23 15:28 08/20/23 15:52 Temperature 36.6 C Temperature Source Temporal Artery Scan Pulse Rate 83 89 Pulse Rate [Left Finger] 100 H Pulse Rate from SpO2 Sensor 89 Respiratory Rate 20 20 19 Respiratory Effort / Characteristics Non-Labored Spontaneous Respiratory Depth Normal Blood Pressure 142/88 H Blood Pressure [Left Arm] 120/90 Blood Pressure Mean 106 Blood Pressure Mean [Left Arm] 100 Blood Pressure Position [Left Arm] Sitting Pulse Oximetry 99 98 99 Oxygen Delivery Method Room Air Room Air Sepsis Recent Fever Within 48 Hours No Sepsis New/Unexplained Change in Mental Status N/A Sepsis Action Taken by Nursing No Action Required 08/20/23 15:53 08/20/23 16:00 08/20/23 19:57 Temperature Temperature Source Pulse Rate 87 89 90 Pulse Rate [Left Finger] Pulse Rate from SpO2 Sensor 84 Respiratory Rate 19 Respiratory Effort / Characteristics Respiratory Depth Blood Pressure 128/78 Blood Pressure [Left Arm] Blood Pressure Mean 94 Blood Pressure Mean [Left Arm] Blood Pressure Position [Left Arm] Pulse Oximetry 97 Oxygen Delivery Method Sepsis Recent Fever Within 48 Hours Sepsis New/Unexplained Change in Mental Status Sepsis Action Taken by Nursing Laboratory Data 08/20/23 14:04 08/20/23 14:04 Lab Results 08/20/23 Range/Units 14:04 WBC 11.49 H (4.8-10.8) K/ul RBC 4.07 L (4.70-6.10) M/uL Hgb 11.7 L (14.0-18.0) g/dl Hct 35.5 L (42.0-52.0) % MCV 87.2 (80.0-100.0) fL MCH 28.7 (25.0-34.0) pg MCHC 33.0 (32.0-36.0) g/dL RDW Std Deviation 44.8 (36.4-46.3) fL RDW Coeff of Cristela 14.0 (11.5-14.5) % Plt Count 282 (130-400) K/uL MPV 10.2 (9.4-12.4) fL Immature Gran % (Auto) 0.4 % Neut % (Auto) 80.3 % Lymph % (Auto) 10.6 % [place] % (Auto) 7.8 % Eos % (Auto) 0.6 % Baso % (Auto) 0.3 % Neut # (Auto) 9.21 H (1.40-6.50) K/uL Lymph # (Auto) 1.22 (1.20-3.40) K/uL [place] # (Auto) 0.90 H (0.11-0.59) K/uL Eos # (Auto) 0.07 (0.00-0.50) K/uL Baso # (Auto) 0.04 (0.00-0.20) K/uL Immature Gran # (Auto) 0.05 (0.01-0.20) K/uL PT 11.8 (9.0-12.0) Seconds INR 1.1 (0.9-1.1) APTT 35 H (21-31) Seconds PTT Ratio 1.2 Sodium 134 L (136-145) mmol/L Potassium 4.0 (3.5-5.1) mmol/L Chloride 99 (98-107) mmol/L Carbon Dioxide 25 (21-32) mmol/L Anion Gap 10 (3-11) BUN 50 H (6-23) mg/dl Creatinine 1.99 H (0.6-1.4) mg/dl Est Cr Clr Drug Dosing Not Reportable Est GFR ( Amer) 40.8 ml/min Est GFR (Non-Af Amer) 35.2 ml/min BUN/Creatinine Ratio 25.1 H (10-20) Glucose 199 H (70-99(Fasting)) mg/dl Calcium 8.7 (8.6-10.3) mg/dl Magnesium 2.1 (1.7-2.4) mg/dl Total Bilirubin 0.6 (0.2-1.0) mg/dl AST 15 (13-39) U/L ALT 19 (7-52) U/L Alkaline Phosphatase 102 (34-104) U/L B-Natriuretic Peptide 94 (0-100) pg/ml Total Protein 7.1 (6.0-8.3) gm/dl Albumin 3.5 (3.4-5.0) gm/dl Globulin 3.6 (2.5-4.0) gm/dl Albumin/Globulin Ratio 1.0 (0.9-2) Administered Medications Discontinued Medications Calcium Carbonate (Calcium Carbonate 500 Mg Chewable Tab) 500 mg PO NOW STA Stop: 08/20/23 21:35 Last Admin: 08/20/23 21:40 Dose: 500 mg Documented By: JOHN Furosemide (Furosemide 40 Mg/4 Ml Vial) 80 mg IV ONE ONE Stop: 08/20/23 20:44 Last Admin: 08/20/23 21:14 Dose: 80 mg Documented By: RUTH Albumin Human (Albumin 25%) 25 gm in 100 mls @ 50 mls/hr IV ONE ONE Stop: 08/20/23 21:35 Last Admin: 08/20/23 21:14 Dose: 50 mls/hr Documented By: RUTH Imaging Data Radiologist's Impression: Chest X-Ray 08/20/23 13:38 SINGLE VIEW CHEST CLINICAL HISTORY: Atypical chest pain. FINDINGS: A PA chest radiograph is compared to study dated 09/28/2021. A 3-lead cardiac AICD is unchanged in position and partially obscures the left upper chest. The heart is enlarged and noting atherosclerotic calcification of the thoracic aorta. The pulmonary vasculature is noncongested. There is mild elevation of the right hemidiaphragm and bibasilar atelectasis. The lungs and pleural spaces are otherwise clear. No pneumothorax is seen. The skeletal structures are osteopenic. The bony thorax is grossly intact. IMPRESSION: 1. Cardiomegaly and AICD without radiographic evidence of congestive failure. 2. No airspace consolidation or pleural effusion is identified. ACT 112: Negative or not required by law. Electronically signed by: Wallace Alexander M.D. 08/20/2023 2:14 PM Venous Doppler Study 08/20/23 16:20 Exam(s): US VENOUS RIGHT LOWER EXTREMITY EXAM: US Duplex Right Lower Extremity Veins CLINICAL HISTORY: Reason for exam: Swollen R > L, painful calf. TECHNIQUE: Real-time duplex ultrasound scan of the right lower extremity veins integrating B-mode two-dimensional vascular structure, Doppler spectral analysis, color flow Doppler imaging and compression. COMPARISON: None. FINDINGS: Deep veins: Unremarkable. No DVT in the visualized common femoral, femoral, proximal deep femoral or popliteal veins. The veins demonstrate normal color flow, are normally compressible, with normal phasic flow and/or augmentation response. Superficial veins: Unremarkable. No thrombus in the visualized great saphenous vein. Soft tissues: No acute findings. No popliteal cyst. IMPRESSION: No ultrasonographic evidence of deep venous thrombosis involving the right lower extremity. Electronically signed by: Joi Valdivia MD 08/20/23 20:39 PM Discharge Plan Visit Data Chief Complaint: Foot Injury/Pain Stated Complaint: FLUID IN BOTH FEET ED Provider: Jack William Discharge Problem: Swelling of both lower extremities Patient Disposition: Admitted As Inpatient Discharge Instructions Interventions: ED Discharge Assessment Last Done: 08/20/23 22:50
[2023-08-20 20:14] LABS: Magnesium 2.1 mg/dl (1.7-2.4)
--- NOTE | 2023-08-20 20:40 | Ultrasound Report ---
Exam(s): US VENOUS RIGHT LOWER EXTREMITY EXAM: US Duplex Right Lower Extremity Veins CLINICAL HISTORY: Reason for exam: Swollen R > L, painful calf. TECHNIQUE: Real-time duplex ultrasound scan of the right lower extremity veins integrating B-mode two-dimensional vascular structure, Doppler spectral analysis, color flow Doppler imaging and compression. COMPARISON: None. FINDINGS: Deep veins: Unremarkable. No DVT in the visualized common femoral, femoral, proximal deep femoral or popliteal veins. The veins demonstrate normal color flow, are normally compressible, with normal phasic flow and/or augmentation response. Superficial veins: Unremarkable. No thrombus in the visualized great saphenous vein. Soft tissues: No acute findings. No popliteal cyst. IMPRESSION: No ultrasonographic evidence of deep venous thrombosis involving the right lower extremity. Electronically signed by: Joi Valdivia MD 08/20/23 20:39 PM
--- NOTE | 2023-08-20 20:48 | History & Physical Report ---
Date of Service August 20, 2023 Assessment & Plan (1) Fluid retention: Plan: chronic systolic heart failure secondary to nonischemic cardiomyopathy (EF 30%, TTE 2021) status post biventricular ICD/PPM In the setting of CKD Possible right-sided heart failure possible underlying pulmonary hypertension given reduced diffusion capacity on PFTs as per outpatient Pulmonology notes history ZOFIA on CPAP/small airway disease as per records PAF on Eliquis, paced rhythm, on Eliquis chronic LBBB hx nonobstructive CAD hypertension, slight elevated hyperlipidemia on statin Rx DM2 insulin requiring, reasonable control as of outpatient hemoglobin A1c of 8.1 last October 2022 Acute on chronic anemia slight hemoglobin drop from baseline, FOBT done at the ER was negative GERD, increased heartburn/reflux symptoms at the ER tonight OBS PCU Lasix albumin 1 dose Strict I/Os, daily weights, CHF education, fluid restriction Update TTE, Cardiology consult Re: fluid retention, possible right-sided heart failure Add famotidine to PPI regimen for uncontrolled GERD Basal insulin, ISS BG goal 1 10-1 40, carb count coverage, update hemoglobin A1c DVT prophylaxis. [employer] Full code Text document was generated using [employer] voice recognition software. It may contain grammatical or spelling errors. Kindly contact undersigned for clarification of any documentation item in question. History of Present Illness Chief Complaint: Bilateral leg swelling, weight gain Primary Care Provider: Jorge Garrett MD History obtained from patient and records. Medical history significant for chronic systolic heart failure secondary to nonischemic cardiomyopathy (EF 35-40%, TTE 2021) status post biventricular ICD/PPM, PAF on Eliquis, chronic LBBB, nonobstructive CAD, history of infective endocarditis, hypertension, hyperlipidemia, small airway disease as per records, ZOFIA on CPAP, possible pulmonary hypertension as per records, DM2 insulin requiring, CRI (baseline creatinine 1.7 to 2), chronic anemia (baseline hemoglobin 12-13), GERD. Last confinement September 2021 for MSSA septicemia secondary to infective endocarditis status post antibiotic Rx. Patient has been going to [facility] for PCP services since January 2023. Unable to see usual [facility] PCP, Dr. Cardoso due to insurance issues. Last week, patient noted increased bilateral leg swelling without chest pain or SOB. Dry cough symptoms the last couple of days. Not sure about sick contacts. Weight gain of about 5 pounds. Compliant with home diuretic regimen. Denies dietary discretion, not on fluid restriction. Denies chest pain, SOB. Compliant with CPAP. PCP increased home diuretic regimen and requested [facility] cardiology follow-up visit. Patient went to ER because of persistent fluid retention. Patient with indigestion symptoms. Denies abdominal pain/black/bloody stools. Denies OTC NSAID intake. 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 Allergies Allergy/AdvReac Type Severity Reaction Status Date / Time No Known Allergies Allergy Verified 08/20/23 16:50 Home Medications Medication Instructions Recorded Confirmed Type atorvastatin 80 mg tablet 80 mg PO QAM 11/26/19 08/20/23 History ucjpkbts-dicclubp-kpmjn acid 400 1 tab PO QAM 11/26/19 08/20/23 History mcg-vit K 20 mcg-lycop 300 mcg tablet (Men's Multivitamin) nitroglycerin 0.4 mg sublingual 0.4 mg sublingual UD PRN Chest Pain 11/26/19 08/20/23 History tablet (Nitrostat) ferrous sulfate 325 mg (65 mg 325 mg PO BID 01/11/20 08/20/23 History iron) tablet (Iron (ferrous sulfate)) furosemide 80 mg tablet 80 mg PO BID 05/01/20 08/20/23 History metoprolol succinate 100 mg 100 mg PO QAM 05/01/20 08/20/23 History tablet,extended release 24 hr pantoprazole 40 mg tablet,delayed 40 mg PO BID 05/01/20 08/20/23 History release tamsulosin 0.4 mg capsule 0.4 mg PO HS 05/01/20 08/20/23 History albuterol sulfate 90 mcg/actuation 2 puff inhalation Q4 PRN 09/22/21 08/20/23 History aerosol inhaler (Ventolin HFA) cough,sob,wheeze dulaglutide 4.5 mg/0.5 mL 4.5 mg subcut WK 09/22/21 08/20/23 History subcutaneous pen injector (Trulicity) ezetimibe 10 mg tablet 10 mg PO QAM 09/22/21 08/20/23 History fluticasone furoate 200 1 ea inhalation QAM 09/22/21 08/20/23 History mcg-vilanterol 25 mcg/dose inhalation powder (Breo Ellipta) insulin glargine 100 unit/mL (3 44 unit subcut HS 09/22/21 08/20/23 History mL) subcutaneous pen (Basaglar KwikPen U-100 Insulin) metformin 500 mg tablet 500 mg PO BID 09/22/21 08/20/23 History sacubitril 24 mg-valsartan 26 mg 1 tab PO BID 09/22/21 08/20/23 History tablet (Entresto) aspirin 81 mg capsule 81 mg PO QAM 11/02/21 08/20/23 History apixaban 2.5 mg tablet (Eliquis) 2.5 mg PO BID 08/20/23 08/20/23 History cyanocobalamin (vitamin B-12) 1,000 mcg PO QAM 08/20/23 08/20/23 History 1,000 mcg tablet (Vitamin B-12) lactobacillus combination no.4 3 3,000 mmu cells PO QAM 08/20/23 08/20/23 History billion cell capsule (Probiotic) Past Med/Surg History Medical History LBBB (left bundle branch block) chronic per [facility] cardio Endocarditis 09/29; "right sided endocarditis" Sleep apnea cpap at night History of recent hospitalization [facility] September 2021 for MSSA sepsis. discharged with PICC line in the right arm and IV abx until 11/14/21 per records. H/O needle biopsy lung (09/2021) at [facility] - inconclusive result Diabetes mellitus, type 2 IDDM Hyperlipidemia ICD (implantable cardioverter-defibrillator) in place meditronic placed 07/2019 Atrial fibrillation no cardioversion Anemia chronic anemia. Hypertension Renal insufficiency follows with PCP Obesity Dyslipidemia Diabetic neuropathy bilateral feet Splenic infarct NICM (nonischemic cardiomyopathy) BiV ICD EF 35-40% 09/24/2021 CHF (congestive heart failure) EF 35-40% 09/24/21 Surgical History S/P PICC central line placement in place Right arm (IV abx treatment until 11/14/21) History of bronchoscopy with lung biopsy S/P cardiac pacemaker procedure replaced 09/16/[address] monroy Status post amputation of toe of left foot History of repair of left rotator cuff History of cardiac cath 2018 @ [facility], no stents History of esophagogastroduodenoscopy (EGD) last done 01/15/2020 [place] teeth extracted Presence of biventricular implantable cardioverter-defibrillator (ICD) Status post amputation of toe of right foot History of colonoscopy Family History Father Heart disease Other No family history of adverse response to anesthesia Social History Smoking Status: Never smoker Second Hand Exposure: No; Do You Dip or Chew Tobacco: No; Hx Alcohol Use: No Hx Substance Use: No Preferred Language: Marshallese Communication Ability: Effective Razor Sharpener Required: No Beliefs That Will Affect Care: None marital status: Single Current Living Situation: Alone Feels Safe at Home: Yes Safety Concerns: Feels Safe At This Time Assistive Devices: CPAP and Glasses Review of Systems Review of Systems: As per HPI, all other systems reviewed and negative Physical Exam Physical Exam: GENERAL: Pleasant, obese, no respiratory distress SKIN: Pallor, warm HEENT: Alopecia, pale palpebral conjunctivae, no ptosis, dry buccal mucosa NECK : Supple, short neck, no tenderness CHEST : Decreased breath sounds, occasional expiratory wheezes, no tenderness HEART : RRR, systolic murmur ABDOMEN: Some distention, nontender RECTAL : Intact sphincter, yellow brown stool (FOBT negative) EXTREMITIES : Bilateral LE swelling, no LE tenderness, no other conspicuous deformities noted NEUROLOGIC : Coherent, no facial asymmetry, no other gross focality Results & Data Results & Data Vital Signs (Past 12 Hours) Vital Signs Temp Pulse Pulse Resp BP BP Pulse Ox 08/20/23 19:57 90 08/20/23 16:00 89 19 128/78 97 08/20/23 15:53 87 08/20/23 15:52 89 19 99 08/20/23 15:28 100 H 20 120/90 98 08/20/23 13:32 36.6 C 83 20 142/88 H 99 O2 Del Method 08/20/23 19:57 08/20/23 16:00 08/20/23 15:53 08/20/23 15:52 08/20/23 15:28 Room Air 08/20/23 13:32 Room Air Laboratory Results Laboratory Results WBC 11.49 K/ul (4.8-10.8) H 08/20/23 14:04 RBC 4.07 M/uL (4.70-6.10) L 08/20/23 14:04 Hgb 11.7 g/dl (14.0-18.0) L 08/20/23 14:04 Hct 35.5 % (42.0-52.0) L 08/20/23 14:04 MCV 87.2 fL (80.0-100.0) 08/20/23 14:04 MCH 28.7 pg (25.0-34.0) 08/20/23 14:04 MCHC 33.0 g/dL (32.0-36.0) 08/20/23 14:04 RDW Std Deviation 44.8 fL (36.4-46.3) 08/20/23 14:04 RDW Coeff of Cristela 14.0 % (11.5-14.5) 08/20/23 14:04 Plt Count 282 K/uL (130-400) 08/20/23 14:04 MPV 10.2 fL (9.4-12.4) 08/20/23 14:04 Immature Gran % (Auto) 0.4 % 08/20/23 14:04 Neut % (Auto) 80.3 % 08/20/23 14:04 Lymph % (Auto) 10.6 % 08/20/23 14:04 [place] % (Auto) 7.8 % 08/20/23 14:04 Eos % (Auto) 0.6 % 08/20/23 14:04 Baso % (Auto) 0.3 % 08/20/23 14:04 Neut # (Auto) 9.21 K/uL (1.40-6.50) H 08/20/23 14:04 Lymph # (Auto) 1.22 K/uL (1.20-3.40) 08/20/23 14:04 [place] # (Auto) 0.90 K/uL (0.11-0.59) H 08/20/23 14:04 Eos # (Auto) 0.07 K/uL (0.00-0.50) 08/20/23 14:04 Baso # (Auto) 0.04 K/uL (0.00-0.20) 08/20/23 14:04 Immature Gran # (Auto) 0.05 K/uL (0.01-0.20) 08/20/23 14:04 PT 11.8 Seconds (9.0-12.0) 08/20/23 14:04 INR 1.1 (0.9-1.1) 08/20/23 14:04 APTT 35 Seconds (21-31) H 08/20/23 14:04 PTT Ratio 1.2 08/20/23 14:04 Sodium 134 mmol/L (136-145) L 08/20/23 14:04 Potassium 4.0 mmol/L (3.5-5.1) 08/20/23 14:04 Chloride 99 mmol/L (98-107) 08/20/23 14:04 Carbon Dioxide 25 mmol/L (21-32) 08/20/23 14:04 Anion Gap 10 (3-11) 08/20/23 14:04 BUN 50 mg/dl (6-23) H 08/20/23 14:04 Creatinine 1.99 mg/dl (0.6-1.4) H 08/20/23 14:04 Est Cr Clr Drug Dosing Not Reportable 08/20/23 14:04 Est GFR ( Amer) 40.8 ml/min 08/20/23 14:04 Est GFR (Non-Af Amer) 35.2 ml/min 08/20/23 14:04 BUN/Creatinine Ratio 25.1 (10-20) H 08/20/23 14:04 Glucose 199 mg/dl (70-99(Fasting)) H 08/20/23 14:04 Calcium 8.7 mg/dl (8.6-10.3) 08/20/23 14:04 Magnesium 2.1 mg/dl (1.7-2.4) 08/20/23 14:04 Total Bilirubin 0.6 mg/dl (0.2-1.0) 08/20/23 14:04 AST 15 U/L (13-39) 08/20/23 14:04 ALT 19 U/L (7-52) 08/20/23 14:04 Alkaline Phosphatase 102 U/L (34-104) 08/20/23 14:04 B-Natriuretic Peptide 94 pg/ml (0-100) 08/20/23 14:04 Total Protein 7.1 gm/dl (6.0-8.3) 08/20/23 14:04 Albumin 3.5 gm/dl (3.4-5.0) 08/20/23 14:04 Globulin 3.6 gm/dl (2.5-4.0) 08/20/23 14:04 Albumin/Globulin Ratio 1.0 (0.9-2) 08/20/23 14:04 Impressions Chest X-Ray 08/20/23 13:38 SINGLE VIEW CHEST CLINICAL HISTORY: Atypical chest pain. FINDINGS: A PA chest radiograph is compared to study dated 09/28/2021. A 3-lead cardiac AICD is unchanged in position and partially obscures the left upper chest. The heart is enlarged and noting atherosclerotic calcification of the thoracic aorta. The pulmonary vasculature is noncongested. There is mild elevation of the right hemidiaphragm and bibasilar atelectasis. The lungs and pleural spaces are otherwise clear. No pneumothorax is seen. The skeletal structures are osteopenic. The bony thorax is grossly intact. IMPRESSION: 1. Cardiomegaly and AICD without radiographic evidence of congestive failure. 2. No airspace consolidation or pleural effusion is identified. ACT 112: Negative or not required by law. Electronically signed by: Wallace Alexander M.D. 08/20/2023 2:14 PM Venous Doppler Study 08/20/23 16:20 Exam(s): US VENOUS RIGHT LOWER EXTREMITY EXAM: US Duplex Right Lower Extremity Veins CLINICAL HISTORY: Reason for exam: Swollen R > L, painful calf. TECHNIQUE: Real-time duplex ultrasound scan of the right lower extremity veins integrating B-mode two-dimensional vascular structure, Doppler spectral analysis, color flow Doppler imaging and compression. COMPARISON: None. FINDINGS: Deep veins: Unremarkable. No DVT in the visualized common femoral, femoral, proximal deep femoral or popliteal veins. The veins demonstrate normal color flow, are normally compressible, with normal phasic flow and/or augmentation response. Superficial veins: Unremarkable. No thrombus in the visualized great saphenous vein. Soft tissues: No acute findings. No popliteal cyst. IMPRESSION: No ultrasonographic evidence of deep venous thrombosis involving the right lower extremity. Electronically signed by: Joi Valdivia MD 08/20/23 20:39 PM Code Status & VTE Plan VTE Prophylaxis Plan VTE Prophylaxis will be ordered: Yes
[2023-08-20] MEDS: FUROSEMIDE 40 MG/4 ML VIAL IV ONE (21:14)
[2023-08-20] MEDS: ALBUMIN 25% 25 GM/100 ML VIAL IV ONE (21:14)
[2023-08-20] MEDS: CALCIUM CARBONATE 500 MG CHEWABLE TAB PO STA (21:40)
[2023-08-20 22:27] LABS: Influenza A virus by PCR Negative (Neg); Influenza B virus by PCR Negative (Neg); RSV by PCR Negative (Neg); SARS CoV2 RNA(COVID-19) Ceph NEGATIVE (Negative)
[2023-08-20 22:56] LABS: Appearance Urine Clear (Clear); Bacteria Urine Automated Negative (Negative); Bilirubin Urine Negative (Negative); Blood Urine Negative (Negative); Color Urine Yellow; Epithelial Cell Urine Auto 0-5 /lpf (0-5); Glucose Urine UA Negative (Negative); Ketones Urine Negative (Negative); Leukocyte Esterase Urine Negative (Negative); Nitrite Urine Negative (Negative); Protein Urine Trace (Negative); RBC Urine Automated 0-4 /hpf (0-4); Urobilinogen Urine Negative (Negative); WBC Urine Automated 0 /hpf (0-5); pH Urine 5.5 (4.5-7.5)
[2023-08-21] MEDS ORDERED: GLUCOSE 10 TAB/TUBE PO PRN (00:01)
[2023-08-21] MEDS ORDERED: GLUCAGON FOR INJ 1 MG VIAL SQ PRN (00:01)
[2023-08-21] MEDS ORDERED: oxyCODONE HCL IR 5 MG TAB (IMMEDIATE RELEASE) PO PRN (00:01)
[2023-08-21] MEDS ORDERED: DEXTROSE 50% 50 ML SYRINGE IV PRN (00:01)
[2023-08-21] MEDS ORDERED: ACETAMINOPHEN 325 MG TAB PO PRN (00:01)
[2023-08-21] MEDS ORDERED: PROMETHAZINE HCL 12.5 MG in SODIUM CHLORIDE 0.9% 50 ML IV PRN (00:01)
[2023-08-21] MEDS ORDERED: NITROGLYCERIN SL 0.4 MG/TAB TAB SL PRN (00:01)
[2023-08-21] MEDS ORDERED: CARBOHYDRATES FOR HYPOGLYCEMIA PO PRN (00:01)
[2023-08-21] MEDS ORDERED: GLUCOSE 40% GEL 15 GM TUBE PO PRN (00:01)
[2023-08-21] MEDS: TAMSULOSIN HCL 0.4 MG CAP PO SCH (01:46)
[2023-08-21] MEDS: FERROUS SULFATE 325 MG TAB PO SCH (01:46)
[2023-08-21] MEDS: APIXABAN 2.5 MG TAB PO SCH (01:47)
[2023-08-21] MEDS: PANTOprazole 40 MG TAB PO SCH (01:47)
[2023-08-21] MEDS: INSULIN ASPART PER UNIT CHARGE SC SCH ×3 (01:47→12:45)
[2023-08-21] MEDS: LANTUS PER UNIT CHARGE SQ SCH ×2 (01:48→20:52)
--- NOTE | 2023-08-21 02:05 | Communication Note ---
Date of Service: August 21, 2023 Patient with sudden onset hematemesis on the floor. Patient with abdominal pain complaints. Heartburn/indigestion symptoms since arrival at the ER. AP UGIB Hold aspirin and Eliquis N.p.o. IV PPI CT abdomen pelvis GI consult
[2023-08-21] MEDS: ACETAMINOPHEN 1,000 MG/100 ML VIAL IV STA (02:48)
[2023-08-21] MEDS: PANTOprazole 80 MG in DEXTROSE 5% 100 ML IV STA (02:49)
[2023-08-21 03:02] LABS: Basophils # (auto) 0.04 K/uL (0.00-0.20); Basophils % (auto) 0.4 %; Eosinophils # (auto) 0.06 K/uL (0.00-0.50); Eosinophils % (auto) 0.5 %; Hematocrit (blood only) 32.3 % (42.0-52.0); Hemoglobin 10.9 g/dl (14.0-18.0); Immature Granulocytes # (auto) 0.04 K/uL (0.01-0.20); Immature Granulocytes % (auto) 0.4 %; Lymphocytes # (auto) 0.75 K/uL (1.20-3.40); Lymphocytes % (auto) 6.6 %; Mean Corpuscular Hemoglobin 28.7 pg (25.0-34.0); Mean Corpuscular Hgb Conc 33.7 g/dL (32.0-36.0); Monocytes # (auto) 0.84 K/uL (0.11-0.59); Monocytes % (auto) 7.4 %; Neutrophils # (auto) 9.61 K/uL (1.40-6.50); Neutrophils % (auto) 84.7 %; Platelet Count 258 K/uL (130-400); RDW Standard Deviation 43.5 fL (36.4-46.3); White Blood Count 11.34 K/ul (4.8-10.8)
[2023-08-21 03:18] LABS: Albumin Level 3.6 gm/dl (3.4-5.0); BUN Creatinine Ratio 29.9 (10-20); Bilirubin,Total 0.8 mg/dl (0.2-1.0); Calcium 8.9 mg/dl (8.6-10.3); Creatinine Clr Calc Pharmacy 63.9 ml/min; Est GFR (African American) 50.4 ml/min; Est GFR (Non-African American) 43.5 ml/min; Globulin 3.5 gm/dl (2.5-4.0); Potassium 3.6 mmol/L (3.5-5.1); Total Protein 7.1 gm/dl (6.0-8.3)
[2023-08-21] MEDS: PANTOprazole 40 MG in DEXTROSE 5% MINI-B 100 ML IV SCH (03:32)
[2023-08-21 06:40] LABS: Hematocrit (blood only) 31.6 % (42.0-52.0); Hemoglobin 10.3 g/dl (14.0-18.0)
--- NOTE | 2023-08-21 07:29 | CT Scan Report ---
Exam(s): CT ABDOMEN + PELVIS Without Contrast EXAM: CT Abdomen and Pelvis Without Intravenous Contrast CLINICAL HISTORY: Reason for exam: abd pain, ugib. TECHNIQUE: Axial computed tomography images of the abdomen and pelvis without intravenous contrast. CTDI is 27.82 mGy and DLP is 1559.58 mGy-cm. Automated exposure control was utilized for the study. A dose lowering technique was utilized adhering to the principles of ALARA. COMPARISON: CT September 22, 2021 FINDINGS: Lung bases: Unremarkable. No mass. No consolidation. ABDOMEN: Liver: Unremarkable. Gallbladder and bile ducts: Small gallstones. No gallbladder wall thickening or surrounding edema or fluid. No ductal dilation. Pancreas: Unremarkable. No ductal dilation. Spleen: Unremarkable. No splenomegaly. Adrenals: Unremarkable. No mass. Kidneys and ureters: Strandy densities in the perinephric fat bilaterally are stable. No urinary tract calculus or obstruction. Stomach and bowel: Unremarkable. No obstruction. No mucosal thickening. PELVIS: Appendix: No findings to suggest acute appendicitis. Bladder: Unremarkable. No stones. Reproductive: Unremarkable as visualized. ABDOMEN and PELVIS: Intraperitoneal space: Unremarkable. No free air. No significant fluid collection. Bones/joints: No acute fracture. No dislocation. Soft tissues: Unremarkable. Vasculature: Unremarkable. No abdominal aortic aneurysm. Lymph nodes: Unremarkable. No enlarged lymph nodes. IMPRESSION: No acute findings in the abdomen or pelvis. Electronically signed by: Macario Cortez MD 08/21/23 07:28 AM
[2023-08-21 08:28] LABS: Estimated Average Glucose 189 mg/dl; Hemoglobin A1C 8.2 % (4.5-5.6)
--- NOTE | 2023-08-21 09:23 | Cardiology Consultation ---
Date of Consultation August 21, 2023 Assessment & Plan (1) Right leg swelling: (2) Hematemesis: (3) Fluid retention: (4) NICM (nonischemic cardiomyopathy): (5) PAF (paroxysmal atrial fibrillation): (6) CAD (coronary artery disease): Plan Right lower extremity swelling, pain, erythema. Erythema and discomfort primarily located around the medial malleoli. History and examination suggest a joint issue. Question cellulitis. Inflammatory markers requested along with ur ic acid, x-rays, blood cultures. Further evaluation through hospitalist. Hematemesis. Aspirin and Eliquis currently on hold. GI consultation pending. Resume aspirin and Eliquis when determined to be safe. Appropriate Eliquis dosing for a 63-year-old male weighing 123 kg is 5 mg twice per day. ? Paroxysmal atrial fibrillation. Check EKG. Device interrogation requested. Nonischemic cardiomyopathy. Status post biventricular pacemaker implantation. Volume status is acceptable. Recommend resuming typical oral furosemide dosing, 80 mg twice per day, and spironolactone (12.5 mg/day) in AM of August 22, 2023. Continue Entresto, Jardiance, and evidence-based beta-avinash therapy with metoprolol succinate. Nonobstructive CAD. October 27, 2020 coronary angiography with a mildly diseased LAD, otherwise diffuse luminal irregularities. Resume low-dose aspirin when determined to be safe. Continue statin. Continue beta-avinash. Patient asymptomatic. Continue medical management. Hypertension. Blood pressure adequately controlled. Dyslipidemia. Continue atorvastatin 80 mg/day. Moderate obstructive sleep apnea and nocturnal hypoxemia. Continue CPAP therapy. Supervising Physician Co-Signing Physician Notes I have reviewed the advance practitioner's documentation, and I agree with, and take responsibility for the plan of care. 63-year-old male presents to the emergency department due to lower extremity swelling. Notes right ankle swelling and erythema since Tuesday. Tender to touch. Describes the pain as "excruciating" at times prior to admission. Lasix recently increased to 160 mg in the a.m., 80 in the p.m. due to reported edema. Denies orthopnea or PND. No chest discomfort or heaviness. Episode of hematemesis reported this a.m. Telemetry reveals tachycardia. Preliminary review of twelve-lead ECG demonstrates sinus tach with ventricular pacing and occasional PVCs. PE: VSS. GEn: NAD, AAO x3. Normal S1-S2. Heart: Regular rhythm, tachycardia, no murmur. Lungs: Clear bilateral, no rales, rhonchi, wheeze. Extremities: Right ankle erythema and 1+ edema. Erythema involving the medial and lateral malleolus. + Tender to palpation. No calf tenderness. A/P: 63-year-old male admitted with right ankle swelling and erythema. Acute joint inflammation suspected versus cellulitis. No evidence of DVT per duplex. Consider further imaging and/orthopedic consultation for evaluation. Patient carries a history of chronic heart failure with reduced ejection fraction. Compensated at this time. Resume outpatient dosing of furosemide, 80 mg twice daily and spironolactone in a.m. 08/22/2023. Continue Entresto, Jardiance, and beta-avinash therapy as ordered. Hold anticoagulation and antiplatelet therapy at this time. Await GI recommendations regarding hematemesis. Monitor daily H&H. History of Present Illness Reason for Consultation: Fluid retention Requesting Physician: Dr. Trivedi Attending Physician: Dr. Duron History of Present Illness Bennett Lopez is a complex 63-year-old male who presented to [facility] on August 20, 2023 due to right lower extremity swelling associated with significant pain and erythema, without fevers or chills. Prior to hospitalization patient has been following with [facility] due to lack of medical insurance. Furosemide increased as an outpatient without improvement, resultant worsening renal dysfunction noted on presentation to the ER on August 20, 2023. Chest x-ray on presentation revealed cardiomegaly without radiographic evidence of congestive heart failure and without airspace consolidation or pleural effusion. B natruretic peptide normal at 94 pg/mL. White blood cell co unt elevated at 11.49. H&H were 11.7 and 35.5. Platelet count was normal at 282 K. Mild hyponatremia was noted with a sodium of 134 (glucose 199). Creatinine 1.99. BUN 50. Potassium normal at 4.0. Patient denies chest pain, worsening shortness of breath, change in chronic cough, chest congestion, orthopnea, PND, or left lower extremity peripheral edema. Compliant with CPAP. Patient compliant with Eliquis anticoagulation which was started back in March 2023 when transitioned off of Coumadin anticoagulation. Around midnight patient had a normal bowel movement. Approximately 2 hours later he developed epigastric discomfort and was observed to have an episode of hematemesis. Aspirin and Eliquis placed on hold. IV PPI initiated. Patient n.p.o., GI consult pending. CT of the abdomen and pelvis without acute process. Problem List: Nonischemic cardiomyopathy. Chronic left bundle branch block. [place] [employer] functional Class III. Status post August 08, 2019 biventricular pacemaker defibrillator implantation. Status post September 16, 2021 coronary sinus pacemaker lead extraction, new left bundle lead insertion, generator exchange by Dr. Cardoza at [facility]. Nonobstructive coronary artery disease via November 2019 diagnostic cardiac catheterization at [facility] October 27, 2020 Coronary Angiography Conclusions: Mildly disease LAD. Otherwise, diffuse luminal irregularities. Paroxysmal atrial fibrillation Hypertension Dyslipidemia Symptomatic anemia, iron deficiency, undefined. Moderate obstructive sleep apnea nocturnal hypoxemia, CPAP therapy Type II diabetes mellitus Obesity History of lyme disease. Hospitalization at [facility] in November 2019, presenting with burning periumbilical abdominal pain associated with intractable nausea and vomiting. CT revealed possible splenic infarcts and possible duodenitis versus volume overload. Staph aureus sepsis. Source of infection felt to be diabetic foot ulcer, left 2nd toe osteomyelitis for which he ultimately underwent left 2nd toe amputation on December 07, 2019. EGD revealed duodenal ulcers and esophagitis. 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 He was transferred to the ICU and underwent cardiac catheterization (on November 28, 2019) by Dr. Liz which revealed TYREL 3 flow, moderate nonobstructive coronary artery disease, no obstructive lesions to account for his discomfort. Normal intracardiac filling pressures observed. Device interrogation on November 29, 2019 revealed atrial fibrillation with onset on November 28, 2019. Course complicated by acute on chronic heart failure treated with IV furosemide. Hospitalization at [facility] September 23, 2021 to September 30, 2021 with staphylococcus aureus bacteremia. Transesophageal echocardiography on September 28, 2021 revealed a 1 cm x 1.1 cm echodensity on the right atrial aspect of the tricuspid valve consistent with possible vegetation of undetermined chronicity, or perhaps an off axis view demonstrating prolapse of the tricuspid valve leaflet. The cardiac device leads were well visualized and without vegetation. Moderate mitral regurgitation noted, secondary to dilated cardiomyopathy with tethering of the mitral valve leaflets and dilatation of the mitral valve annulus with resultant central coaptation of the mitral valve. Ejection fraction 35 to 40%. Patient discharged with a right upper extremity PICC line, receiving 6 weeks of IV Ancef and rifampin. November 05, [address] Coleman at [facility] revealed stable tricuspid valve findings. The previously noted 1 cm x 1 cm echodensity consistent with vegetation was unchanged, and on further investigation may be sales representative door to door of an area of focal tricuspid valve prolopse (visualized with off axis imaging). Blood cultures were negative on 11/05/2021. Allergies Allergy/AdvReac Type Severity Reaction Status Date / Time No Known Allergies Allergy Verified 08/20/23 16:50 Home Medications Medication Instructions Recorded Confirmed Type atorvastatin 80 mg tablet 80 mg PO QAM 11/26/19 08/20/23 History klmfxruw-nuqjbjpa-qztgv acid 400 1 tab PO QAM 11/26/19 08/20/23 History mcg-vit K 20 mcg-lycop 300 mcg tablet (Men's Multivitamin) nitroglycerin 0.4 mg sublingual 0.4 mg sublingual UD PRN Chest Pain 11/26/19 08/20/23 History tablet (Nitrostat) ferrous sulfate 325 mg (65 mg 325 mg PO BID 01/11/20 08/20/23 History iron) tablet (Iron (ferrous sulfate)) furosemide 80 mg tablet 80 mg PO BID 05/01/20 08/20/23 History metoprolol succinate 100 mg 100 mg PO QAM 05/01/20 08/20/23 History tablet,extended release 24 hr pantoprazole 40 mg tablet,delayed 40 mg PO BID 05/01/20 08/20/23 History release tamsulosin 0.4 mg capsule 0.4 mg PO HS 05/01/20 08/20/23 History albuterol sulfate 90 mcg/actuation 2 puff inhalation Q4 PRN 09/22/21 08/20/23 History aerosol inhaler (Ventolin HFA) cough,sob,wheeze dulaglutide 4.5 mg/0.5 mL 4.5 mg subcut WK 09/22/21 08/20/23 History subcutaneous pen injector (Trulicity) ezetimibe 10 mg tablet 10 mg PO QAM 09/22/21 08/20/23 History fluticasone furoate 200 1 ea inhalation QAM 09/22/21 08/20/23 History mcg-vilanterol 25 mcg/dose inhalation powder (Breo Ellipta) insulin glargine 100 unit/mL (3 44 unit subcut HS 09/22/21 08/20/23 History mL) subcutaneous pen (Basaglar KwikPen U-100 Insulin) metformin 500 mg tablet 500 mg PO BID 09/22/21 08/20/23 History sacubitril 24 mg-valsartan 26 mg 1 tab PO BID 09/22/21 08/20/23 History tablet (Entresto) aspirin 81 mg capsule 81 mg PO QAM 11/02/21 08/20/23 History apixaban 2.5 mg tablet (Eliquis) 2.5 mg PO BID 08/20/23 08/20/23 History cyanocobalamin (vitamin B-12) 1,000 mcg PO QAM 08/20/23 08/20/23 History 1,000 mcg tablet (Vitamin B-12) lactobacillus combination no.4 3 3,000 mmu cells PO QAM 08/20/23 08/20/23 History billion cell capsule (Probiotic) Patient History Medical History LBBB (left bundle branch block) chronic per [facility] cardio Endocarditis 09/29; "right sided endocarditis" Sleep apnea cpap at night History of recent hospitalization [facility] September 2021 for MSSA sepsis. discharged with PICC line in the right arm and IV abx until 11/14/21 per records. H/O needle biopsy lung (09/2021) at [facility] - inconclusive result Diabetes mellitus, type 2 IDDM Hyperlipidemia ICD (implantable cardioverter-defibrillator) in place meditronic placed 07/2019 Atrial fibrillation no cardioversion Anemia chronic anemia. Hypertension Renal insufficiency follows with PCP Obesity Dyslipidemia Diabetic neuropathy bilateral feet Splenic infarct NICM (nonischemic cardiomyopathy) BiV ICD EF 35-40% 09/24/2021 CHF (congestive heart failure) EF 35-40% 09/24/21 Surgical History S/P PICC central line placement in place Right arm (IV abx treatment until 11/14/21) History of bronchoscopy with lung biopsy S/P cardiac pacemaker procedure replaced 09/16/[address] cardoza Status post amputation of toe of left foot History of repair of left rotator cuff History of cardiac cath 2019 @ [facility], no stents History of esophagogastroduodenoscopy (EGD) last done 01/15/2020 [place] teeth extracted Presence of biventricular implantable cardioverter-defibrillator (ICD) Status post amputation of toe of right foot History of colonoscopy Family History Father Heart disease Other No family history of adverse response to anesthesia Social History Smoking Status: Never smoker Second Hand Exposure: No; Do You Dip or Chew Tobacco: No; Hx Alcohol Use: No Hx Substance Use: No Preferred Language: Greek Communication Ability: Effective Xm1 Tank Driver Required: No Beliefs That Will Affect Care: None marital status: Single Current Living Situation: Alone Feels Safe at Home: Yes Safety Concerns: Feels Safe At This Time Assistive Devices: CPAP and Glasses Review of Systems Review of Systems: Complete review of systems is otherwise as stated above, negative, or noncontributory Physical Exam Physical Exam: General: No acute distress. Comfortable, cooperative. Lying supine in the hospital bed Skin: Right lower extremity erythema. No overt embolic phenomenon on either the lower or upper extremities. Eyes: PER. Conjunctiva pink, sclera clear. HENT: Normocephalic. Atraumatic. Neck: No carotid bruits. No JVD. Heart: Irregularly irregular. Grade 2 systolic ejection murmur. No diastolic murmur. No rub. Lungs: Clear to auscultation Abdomen: +BS. Soft. Nontender. No masses. No organomegaly. Extremities: No edema on the left lower extremity. Status post amputation of the second toe on the left lower extremity. Mild right lower extremity peripheral edema. The distal right lower extremity is erythematous, tender to palpation around the medial malleoli. No clubbing. No cyanosis. Pulses: radial=2/4, posterior tibial=0/4. Limited neurological examination: No focal deficit. Results & Data Vital Signs (Past 12 Hours) Vital Signs Temp Pulse Pulse Resp BP BP Pulse Ox 08/21/23 07:26 36.6 C 102 H 18 119/68 94 08/21/23 02:53 36.7 C 83 18 151/90 H 93 08/20/23 23:45 08/20/23 23:44 124 H 08/20/23 23:40 36.6 C 105 H 16 147/79 H 08/20/23 23:40 08/20/23 23:35 08/20/23 23:35 36.6 C 105 H 16 147/79 H 08/20/23 23:00 96 H 23 151/86 H 96 08/20/23 22:31 99 H 17 152/93 H 98 08/20/23 22:21 100 H 24 97 08/20/23 22:01 100 H 22 152/94 H 98 08/20/23 21:36 97 H 19 158/93 H 99 Pulse Ox O2 Del Method O2 Del Method 08/21/23 07:26 Room Air 08/21/23 02:53 Room Air 08/20/23 23:45 Room Air, CPAP 08/20/23 23:44 08/20/23 23:40 08/20/23 23:40 91 Room Air 08/20/23 23:35 Room Air, CPAP 08/20/23 23:35 08/20/23 23:00 Room Air 08/20/23 22:31 Room Air 08/20/23 22:21 08/20/23 22:01 Room Air 08/20/23 21:36 Room Air Laboratory Results Cardiac Enzymes 08/20/23 08/21/23 Range/Units 14:04 02:41 AST 15 16 (13-39) U/L B-Natriuretic Peptide 94 (0-100) pg/ml Coagulation 08/20/23 Range/Units 14:04 PT 11.8 (9.0-12.0) Seconds APTT 35 H (21-31) Seconds B-Natriuretic Peptide 94 (0-100) pg/ml CBC 08/20/23 08/21/23 08/21/23 Range/Units 14:04 02:41 06:07 WBC 11.49 H 11.34 H (4.8-10.8) K/ul RBC 4.07 L 3.80 L (4.70-6.10) M/uL Hgb 11.7 L 10.9 L 10.3 L (14.0-18.0) g/dl Hct 35.5 L 32.3 L 31.6 L (42.0-52.0) % Plt Count 282 258 (130-400) K/uL Neut # (Auto) 9.21 H 9.61 H (1.40-6.50) K/uL Lymph # (Auto) 1.22 0.75 L (1.20-3.40) K/uL [place] # (Auto) 0.90 H 0.84 H (0.11-0.59) K/uL Eos # (Auto) 0.07 0.06 (0.00-0.50) K/uL Baso # (Auto) 0.04 0.04 (0.00-0.20) K/uL Comprehensive Metabolic Panel 08/20/23 08/21/23 Range/Units 14:04 02:41 Sodium 134 L 138 (136-145) mmol/L Potassium 4.0 3.6 (3.5-5.1) mmol/L Chloride 99 102 (98-107) mmol/L Carbon Dioxide 25 25 (21-32) mmol/L BUN 50 H 50 H (6-23) mg/dl Creatinine 1.99 H 1.67 H D (0.6-1.4) mg/dl Glucose 199 H 190 H (70-99(Fasting)) mg/dl Calcium 8.7 8.9 (8.6-10.3) mg/dl AST 15 16 (13-39) U/L ALT 19 17 (7-52) U/L Alkaline Phosphatase 102 104 (34-104) U/L Total Protein 7.1 7.1 (6.0-8.3) gm/dl Albumin 3.5 3.6 (3.4-5.0) gm/dl Intake and Output 08/20/23 08/21/23 08/21/23 22:59 06:59 14:59 Intake Total 320 / 320 100 / 100 Output Total 0 / 0 Balance 320 / 320 100 / 100 Intake: IV 320 / 320 100 / 100 Acetaminophen 1,000 mg In 100 100 / 100 ml @ 400 mls/hr IV NOW STA Rx#: [id number] Albumin 25% 25 gm In 100 ml @ 100 / 100 50 mls/hr IV ONE ONE Rx#: [id number] PANTOprazole 40 mg In Dextrose 100 / 100 5% Mini-B 100 ml @ 8 MG/HR 20 mls/hr IV Q5H [facility] Rx#:[id number] PANTOprazole 80 mg In Dextrose 120 / 120 5% 100 ml @ 480 mls/hr IV ONE STA Rx#:[id number] Oral 0 / 0 Output: Urine 0 / 0 Other: Other Intake Source npo Weight 127.2 kg 123.2 kg Weight Measurement Method Built in [facility] Built in [facility] Diagnostic Findings November 28, 2019 Coronary Angiography ([facility], Dr. Liz): LM - Medium caliber vessel, luminal irregularities. LAD - Medium caliber vessel, 60% mid LAD stenosis at bifurcation of medium caliber first diagonal. Distal vessel with luminal irregularities. First diagonal with 50% proximal stenosis. Ramus Medium caliber 50% ostial stenosis. Circumflex - Medium caliber, 40% ostial stenosis, mid segment luminal irregularities. RCA - Dominant, large caliber vessel, no significant disease. October 27, 2020 Coronary Angiography Conclusions: Mildly disease LAD. Otherwise, diffuse luminal irregularities. September 24, 2021 [facility] No evidence of a mass or vegetation. This does not rule out endocarditis. Moderately dilated left ventricle. Moderately reduced LV systolic function. Ejection fraction 35 to 40%. Normal RV systolic function. Mild aortic valve sclerosis without significant stenosis. Trace mitral regurgitation. September 28, 2021 [facility] 3 cardiac device leads were well visualized and were without vegetation. There is a 1 cm x 1.1 cm echodensity on the right atrial aspect of the tricuspid valve consistent with vegetation of undetermined a QT/chronicity, or perhaps is in off axis view demonstrating prolapse of the tricuspid valve leaflet. Given clinical presentation with recurrent Staphylococcus aureus bacteremia (2019 and recently) endocarditis is suspected. Moderate mitral regurgitation. The etiology the mitral regurgitation is dilated cardiomyopathy with tethering of the mitral valve leaflets and dilatation of the mitral valve annulus with resultant central coaptation of the mitral valve. November 05, 2021 MAR[facility] Interpret[facility] Tricuspid valve findings are stable. The previously noted 1 cm x 1 cm echodensity consistent with vegetation is unchanged, and on further investigation may be sales representative door to door of an area of focal tricuspid valve prolapse (visualized on off axis imaging) Pacemaker interrogation last performed on June 28, 2023 personally reviewed, revealing 6.9 years remaining longevity. 2 nonsustained episodes of ventricular tachycardia observed on March 28, 2023 and May 31, 2023, both lasting 1 seconds in duration. No atrial tachycardia/atrial fibrillation. BiV paced 92.6%. Elevated OptiVol. No EKG available for review this admission Telemetry: Paced with occasional PVCs ? PAF.
--- NOTE | 2023-08-21 09:45 | Gastrointestinal Consultation ---
Date of Consultation August 21, 2023 Assessment & Plan (1) Hematemesis: Patient with single episode of vomiting with "flecks of blood in it". It is difficult to tell the severity of the bleeding as his description is less than impressive. This could be from esophagitis or even an ulcer although his s ymptoms don't point to ulcer disease. He also could have had some irritation from the coughing he did prior to the vomiting. He did have a drop in his hemoglobin but that could certainly be related to changes in fluid status. I do not plan emergent EGD today. Will let the primary Gi team decide tomorrow if they want to do EGD while inpatient or as an outpatient or if they want to do it at all. He can eat today from my standpoint as he currently feels well but would hold him NPO past midnight just in case. History of Present Illness Reason for Consultation: upper GI bleed Attending Physician: Vadim Duron MD History of Present Illness 63 year old man admitted with lower extremity swelling that may or may not be cardiac in nature. During the night he started coughing and belching and then threw up what he describes as "clear liquid with flecks of blood in it". He did not vomit barry blood and there was far more clear liquid than the "flecks of blood". Over the past week he has been having a little heartburn. He does take Eliquis for his cardiac issues. He had an upper endoscopy a few years ago that was normal. He sees [facility]. Stat CT of the abdomen was normal. Hemoglobin was 10.3 which is down a little Allergies Allergy/AdvReac Type Severity Reaction Status Date / Time No Known Allergies Allergy Verified 08/20/23 16:50 Home Medications Medication Instructions Recorded Confirmed Type atorvastatin 80 mg tablet 80 mg PO QAM 11/26/19 08/20/23 History ypktnkbo-fpcaibbd-rvdtp acid 400 1 tab PO QAM 11/26/19 08/20/23 History mcg-vit K 20 mcg-lycop 300 mcg tablet (Men's Multivitamin) nitroglycerin 0.4 mg sublingual 0.4 mg sublingual UD PRN Chest Pain 11/26/19 08/20/23 History tablet (Nitrostat) ferrous sulfate 325 mg (65 mg 325 mg PO BID 01/11/20 08/20/23 History iron) tablet (Iron (ferrous sulfate)) furosemide 80 mg tablet 80 mg PO BID 05/01/20 08/20/23 History metoprolol succinate 100 mg 100 mg PO QAM 05/01/20 08/20/23 History tablet,extended release 24 hr pantoprazole 40 mg tablet,delayed 40 mg PO BID 05/01/20 08/20/23 History release tamsulosin 0.4 mg capsule 0.4 mg PO HS 05/01/20 08/20/23 History albuterol sulfate 90 mcg/actuation 2 puff inhalation Q4 PRN 09/22/21 08/20/23 History aerosol inhaler (Ventolin HFA) cough,sob,wheeze dulaglutide 4.5 mg/0.5 mL 4.5 mg subcut WK 09/22/21 08/20/23 History subcutaneous pen injector (Trulicity) ezetimibe 10 mg tablet 10 mg PO QAM 09/22/21 08/20/23 History fluticasone furoate 200 1 ea inhalation QAM 09/22/21 08/20/23 History mcg-vilanterol 25 mcg/dose inhalation powder (Breo Ellipta) insulin glargine 100 unit/mL (3 44 unit subcut HS 09/22/21 08/20/23 History mL) subcutaneous pen (Basaglar KwikPen U-100 Insulin) metformin 500 mg tablet 500 mg PO BID 09/22/21 08/20/23 History sacubitril 24 mg-valsartan 26 mg 1 tab PO BID 09/22/21 08/20/23 History tablet (Entresto) aspirin 81 mg capsule 81 mg PO QAM 11/02/21 08/20/23 History apixaban 2.5 mg tablet (Eliquis) 2.5 mg PO BID 08/20/23 08/20/23 History cyanocobalamin (vitamin B-12) 1,000 mcg PO QAM 08/20/23 08/20/23 History 1,000 mcg tablet (Vitamin B-12) lactobacillus combination no.4 3 3,000 mmu cells PO QAM 08/20/23 08/20/23 History billion cell capsule (Probiotic) Patient History Medical History LBBB (left bundle branch block) chronic per [facility] Endocarditis 09/29; "right sided endocarditis" Sleep apnea cpap at night History of recent hospitalization [facility] September 2021 for MSSA sepsis. discharged with PICC line in the right arm and IV abx until 11/14/21 per records. H/O needle biopsy lung (09/2021) at [facility] - inconclusive result Diabetes mellitus, type 2 IDDM Hyperlipidemia ICD (implantable cardioverter-defibrillator) in place meditronic placed 07/2019 Atrial fibrillation no cardioversion Anemia chronic anemia. Hypertension Renal insufficiency follows with PCP Obesity Dyslipidemia Diabetic neuropathy bilateral feet Splenic infarct NICM (nonischemic cardiomyopathy) BiV ICD EF 35-40% 09/24/2021 CHF (congestive heart failure) EF 35-40% 09/24/21 Surgical History S/P PICC central line placement in place Right arm (IV abx treatment until 11/14/21) History of bronchoscopy with lung biopsy S/P cardiac pacemaker procedure replaced 09/16/[address] monroy Status post amputation of toe of left foot History of repair of left rotator cuff History of cardiac cath 2018 @ [facility], no stents History of esophagogastroduodenoscopy (EGD) last done 01/15/2020 Patriot teeth extracted Presence of biventricular implantable cardioverter-defibrillator (ICD) Status post amputation of toe of right foot History of colonoscopy Family History Father Heart disease Other No family history of adverse response to anesthesia Social History Smoking Status: Never smoker Second Hand Exposure: No; Do You Dip or Chew Tobacco: No; Hx Alcohol Use: No Hx Substance Use: No Preferred Language: Bangladeshi Communication Ability: Effective Behavior Analyst Required: No Beliefs That Will Affect Care: None marital status: Single Current Living Situation: Alone Feels Safe at Home: Yes Safety Concerns: Feels Safe At This Time Assistive Devices: CPAP and Glasses Review of Systems Review of Systems: All systems reviewed & are unremarkable except as noted in HPI & below Physical Exam Constitutional: WD/WN, vitals as above no acute distress Eyes: PERRL, conjunctivae normal, anicteric sclerae ENMT: external ear and nose normal, oropharynx normal Neck: trachea midline, no thyromegaly Respiratory: normal respiratory effort, lungs clear to auscultation Cardiovascular: RRR, no murmur, no edema Gastrointestinal (Abdomen): normal bowel sounds, soft, nontender, no hepatosplenomegaly Musculoskeletal: Extremities: no cyanosis and no clubbing Skin: no rashes, warm and dry Neurologic: PERRL, EOMI, accommodation nl, no face palsy, no dysarthria Psychiatric: Orientation: alert and oriented x 3 Results & Data Vital Signs (Past 12 Hours) Vital Signs Temp Pulse Pulse Resp BP BP Pulse Ox 08/21/23 07:26 36.6 C 102 H 18 119/68 94 08/21/23 02:53 36.7 C 83 18 151/90 H 93 08/20/23 23:45 08/20/23 23:44 124 H 08/20/23 23:40 36.6 C 105 H 16 147/79 H 08/20/23 23:40 08/20/23 23:35 08/20/23 23:35 36.6 C 105 H 16 147/79 H 08/20/23 23:00 96 H 23 151/86 H 96 08/20/23 22:31 99 H 17 152/93 H 98 08/20/23 22:21 100 H 24 97 08/20/23 22:01 100 H 22 152/94 H 98 Pulse Ox O2 Del Method O2 Del Method 08/21/23 07:26 Room Air 08/21/23 02:53 Room Air 08/20/23 23:45 Room Air, CPAP 08/20/23 23:44 08/20/23 23:40 08/20/23 23:40 91 Room Air 08/20/23 23:35 Room Air, CPAP 08/20/23 23:35 08/20/23 23:00 Room Air 08/20/23 22:31 Room Air 08/20/23 22:21 08/20/23 22:01 Room Air Laboratory Results 08/21/23 08/21/23 08/21/23 Range/Units 06:07 06:03 02:41 WBC 11.34 H (4.8-10.8) K/ul RBC 3.80 L (4.70-6.10) M/uL Hgb 10.3 L 10.9 L (14.0-18.0) g/dl Hct 31.6 L 32.3 L (42.0-52.0) % MCV 85.0 (80.0-100.0) fL MCH 28.7 (25.0-34.0) pg MCHC 33.7 (32.0-36.0) g/dL RDW Std Deviation 43.5 (36.4-46.3) fL RDW Coeff of Cristela 14.0 (11.5-14.5) % Plt Count 258 (130-400) K/uL MPV 10.0 (9.4-12.4) fL Immature Gran % (Auto) 0.4 % Neut % (Auto) 84.7 % Lymph % (Auto) 6.6 % Lawrence % (Auto) 7.4 % Eos % (Auto) 0.5 % Baso % (Auto) 0.4 % Neut # (Auto) 9.61 H (1.40-6.50) K/uL Lymph # (Auto) 0.75 L (1.20-3.40) K/uL Lawrence # (Auto) 0.84 H (0.11-0.59) K/uL Eos # (Auto) 0.06 (0.00-0.50) K/uL Baso # (Auto) 0.04 (0.00-0.20) K/uL Immature Gran # (Auto) 0.04 (0.01-0.20) K/uL PT (9.0-12.0) Seconds INR (0.9-1.1) APTT (21-31) Seconds PTT Ratio Sodium 138 (136-145) mmol/L Potassium 3.6 (3.5-5.1) mmol/L Chloride 102 (98-107) mmol/L Carbon Dioxide 25 (21-32) mmol/L Anion Gap 11 (3-11) BUN 50 H (6-23) mg/dl Creatinine 1.67 H D (0.6-1.4) mg/dl Est Cr Clr Drug Dosing 63.9 Est GFR ( Amer) 50.4 ml/min Est GFR (Non-Af Amer) 43.5 ml/min BUN/Creatinine Ratio 29.9 H (10-20) Glucose 190 H (70-99(Fasting)) mg/dl POC Glucose 188 H (70-99) mg/dl Estimat Average Glucose 189 mg/dl Hemoglobin A1c 8.2 H (4.5-5.6) % Uric Acid Pending Calcium 8.9 (8.6-10.3) mg/dl Magnesium (1.7-2.4) mg/dl Total Bilirubin 0.8 (0.2-1.0) mg/dl AST 16 (13-39) U/L ALT 17 (7-52) U/L Alkaline Phosphatase 104 (34-104) U/L C-Reactive Protein Pending B-Natriuretic Peptide (0-100) pg/ml Total Protein 7.1 (6.0-8.3) gm/dl Albumin 3.6 (3.4-5.0) gm/dl Globulin 3.5 (2.5-4.0) gm/dl Albumin/Globulin Ratio 1.0 (0.9-2) Lipase 11 (11-82) U/L Urine Color Urine Appearance (Clear) Urine pH (4.5-7.5) Ur Specific Pendleton (1.000-1.030) Urine Protein (Negative) Urine Glucose (UA) (Negative) Urine Ketones (Negative) Urine Blood (Negative) Urine Nitrite (Negative) Urine Bilirubin (Negative) Urine Urobilinogen (Negative) Ur Leukocyte Esterase (Negative) Urine WBC (Auto) (0-5) /hpf Urine RBC (Auto) (0-4) /hpf U Hyaline Cast (Auto) (0-5) /lpf U Epithel Cells (Auto) (0-5) /lpf Urine Bacteria (Auto) (Negative) SARS-CoV-2 (PCR) (Negative) Influenza Type A (PCR) (Neg) Influenza Type B (PCR) (Neg) RSV (RT-PCR) (Neg) Blood Type O Negative Antibody Screen NEGATIVE 08/21/23 08/20/23 08/20/23 Range/Units 01:33 22:22 21:36 WBC (4.8-10.8) K/ul RBC (4.70-6.10) M/uL Hgb (14.0-18.0) g/dl Hct (42.0-52.0) % MCV (80.0-100.0) fL MCH (25.0-34.0) pg MCHC (32.0-36.0) g/dL RDW Std Deviation (36.4-46.3) fL RDW Coeff of Cristela (11.5-14.5) % Plt Count (130-400) K/uL MPV (9.4-12.4) fL Immature Gran % (Auto) % Neut % (Auto) % Lymph % (Auto) % Lawrence % (Auto) % Eos % (Auto) % Baso % (Auto) % Neut # (Auto) (1.40-6.50) K/uL Lymph # (Auto) (1.20-3.40) K/uL Lawrence # (Auto) (0.11-0.59) K/uL Eos # (Auto) (0.00-0.50) K/uL Baso # (Auto) (0.00-0.20) K/uL Immature Gran # (Auto) (0.01-0.20) K/uL PT (9.0-12.0) Seconds INR (0.9-1.1) APTT (21-31) Seconds PTT Ratio Sodium (136-145) mmol/L Potassium (3.5-5.1) mmol/L Chloride (98-107) mmol/L Carbon Dioxide (21-32) mmol/L Anion Gap (3-11) BUN (6-23) mg/dl Creatinine (0.6-1.4) mg/dl Est Cr Clr Drug Dosing Est GFR ( Amer) ml/min Est GFR (Non-Af Amer) ml/min BUN/Creatinine Ratio (10-20) Glucose (70-99(Fasting)) mg/dl POC Glucose 203 H (70-99) mg/dl Estimat Average Glucose mg/dl Hemoglobin A1c (4.5-5.6) % Uric Acid Calcium (8.6-10.3) mg/dl Magnesium (1.7-2.4) mg/dl Total Bilirubin (0.2-1.0) mg/dl AST (13-39) U/L ALT (7-52) U/L Alkaline Phosphatase (34-104) U/L C-Reactive Protein B-Natriuretic Peptide (0-100) pg/ml Total Protein (6.0-8.3) gm/dl Albumin (3.4-5.0) gm/dl Globulin (2.5-4.0) gm/dl Albumin/Globulin Ratio (0.9-2) Lipase (11-82) U/L Urine Color Yellow Urine Appearance Clear (Clear) Urine pH 5.5 (4.5-7.5) Ur Specific P[place] 1.010 (1.000-1.030) Urine Protein Trace H (Negative) Urine Glucose (UA) Negative (Negative) Urine Ketones Negative (Negative) Urine Blood Negative (Negative) Urine Nitrite Negative (Negative) Urine Bilirubin Negative (Negative) Urine Urobilinogen Negative (Negative) Ur Leukocyte Esterase Negative (Negative) Urine WBC (Auto) 0 (0-5) /hpf Urine RBC (Auto) 0-4 (0-4) /hpf U Hyaline Cast (Auto) 1-5 (0-5) /lpf U Epithel Cells (Auto) 0-5 (0-5) /lpf Urine Bacteria (Auto) Negative (Negative) SARS-CoV-2 (PCR) NEGATIVE (Negative) Influenza Type A (PCR) Negative (Neg) Influenza Type B (PCR) Negative (Neg) RSV (RT-PCR) Negative (Neg) Blood Type Antibody Screen 08/20/23 Range/Units 14:04 WBC 11.49 H (4.8-10.8) K/ul RBC 4.07 L (4.70-6.10) M/uL Hgb 11.7 L (14.0-18.0) g/dl Hct 35.5 L (42.0-52.0) % MCV 87.2 (80.0-100.0) fL MCH 28.7 (25.0-34.0) pg MCHC 33.0 (32.0-36.0) g/dL RDW Std Deviation 44.8 (36.4-46.3) fL RDW Coeff of Cristela 14.0 (11.5-14.5) % Plt Count 282 (130-400) K/uL MPV 10.2 (9.4-12.4) fL Immature Gran % (Auto) 0.4 % Neut % (Auto) 80.3 % Lymph % (Auto) 10.6 % Lawrence % (Auto) 7.8 % Eos % (Auto) 0.6 % Baso % (Auto) 0.3 % Neut # (Auto) 9.21 H (1.40-6.50) K/uL Lymph # (Auto) 1.22 (1.20-3.40) K/uL Lawrence # (Auto) 0.90 H (0.11-0.59) K/uL Eos # (Auto) 0.07 (0.00-0.50) K/uL Baso # (Auto) 0.04 (0.00-0.20) K/uL Immature Gran # (Auto) 0.05 (0.01-0.20) K/uL PT 11.8 (9.0-12.0) Seconds INR 1.1 (0.9-1.1) APTT 35 H (21-31) Seconds PTT Ratio 1.2 Sodium 134 L (136-145) mmol/L Potassium 4.0 (3.5-5.1) mmol/L Chloride 99 (98-107) mmol/L Carbon Dioxide 25 (21-32) mmol/L Anion Gap 10 (3-11) BUN 50 H (6-23) mg/dl Creatinine 1.99 H (0.6-1.4) mg/dl Est Cr Clr Drug Dosing Not Reportable Est GFR ( Amer) 40.8 ml/min Est GFR (Non-Af Amer) 35.2 ml/min BUN/Creatinine Ratio 25.1 H (10-20) Glucose 199 H (70-99(Fasting)) mg/dl POC Glucose (70-99) mg/dl Estimat Average Glucose mg/dl Hemoglobin A1c (4.5-5.6) % Uric Acid Calcium 8.7 (8.6-10.3) mg/dl Magnesium 2.1 (1.7-2.4) mg/dl Total Bilirubin 0.6 (0.2-1.0) mg/dl AST 15 (13-39) U/L ALT 19 (7-52) U/L Alkaline Phosphatase 102 (34-104) U/L C-Reactive Protein B-Natriuretic Peptide 94 (0-100) pg/ml Total Protein 7.1 (6.0-8.3) gm/dl Albumin 3.5 (3.4-5.0) gm/dl Globulin 3.6 (2.5-4.0) gm/dl Albumin/Globulin Ratio 1.0 (0.9-2) Lipase (11-82) U/L Urine Color Urine Appearance (Clear) Urine pH (4.5-7.5) Ur Specific P[place] (1.000-1.030) Urine Protein (Negative) Urine Glucose (UA) (Negative) Urine Ketones (Negative) Urine Blood (Negative) Urine Nitrite (Negative) Urine Bilirubin (Negative) Urine Urobilinogen (Negative) Ur Leukocyte Esterase (Negative) Urine WBC (Auto) (0-5) /hpf Urine RBC (Auto) (0-4) /hpf U Hyaline Cast (Auto) (0-5) /lpf U Epithel Cells (Auto) (0-5) /lpf Urine Bacteria (Auto) (Negative) SARS-CoV-2 (PCR) (Negative) Influenza Type A (PCR) (Neg) Influenza Type B (PCR) (Neg) RSV (RT-PCR) (Neg) Blood Type Antibody Screen Diagnostic Findings Chest X-Ray 08/20/23 13:38 SINGLE VIEW CHEST CLINICAL HISTORY: Atypical chest pain. FINDINGS: A PA chest radiograph is compared to study dated 09/28/2021. A 3-lead cardiac AICD is unchanged in position and partially obscures the left upper chest. The heart is enlarged and noting atherosclerotic calcification of the thoracic aorta. The pulmonary vasculature is noncongested. There is mild elevation of the right hemidiaphragm and bibasilar atelectasis. The lungs and pleural spaces are otherwise clear. No pneumothorax is seen. The skeletal structures are osteopenic. The bony thorax is grossly intact. IMPRESSION: 1. Cardiomegaly and AICD without radiographic evidence of congestive failure. 2. No airspace consolidation or pleural effusion is identified. ACT 112: Negative or not required by law. Electronically signed by: Wallace Alexander M.D. 08/20/2023 2:14 PM Venous Doppler Study 08/20/23 16:20 Exam(s): US VENOUS RIGHT LOWER EXTREMITY EXAM: US Duplex Right Lower Extremity Veins CLINICAL HISTORY: Reason for exam: Swollen R > L, painful calf. TECHNIQUE: Real-time duplex ultrasound scan of the right lower extremity veins integrating B-mode two-dimensional vascular structure, Doppler spectral analysis, color flow Doppler imaging and compression. COMPARISON: None. FINDINGS: Deep veins: Unremarkable. No DVT in the visualized common femoral, femoral, proximal deep femoral or popliteal veins. The veins demonstrate normal color flow, are normally compressible, with normal phasic flow and/or augmentation response. Superficial veins: Unremarkable. No thrombus in the visualized great saphenous vein. Soft tissues: No acute findings. No popliteal cyst. IMPRESSION: No ultrasonographic evidence of deep venous thrombosis involving the right lower extremity. Electronically signed by: Joi Valdivia MD 08/20/23 20:39 PM Abdomen/Pelvis CT 08/21/23 02:05 Exam(s): CT ABDOMEN + PELVIS Without Contrast EXAM: CT Abdomen and Pelvis Without Intravenous Contrast CLINICAL HISTORY: Reason for exam: abd pain, ugib. TECHNIQUE: Axial computed tomography images of the abdomen and pelvis without intravenous contrast. CTDI is 27.82 mGy and DLP is 1559.58 mGy-cm. Automated exposure control was utilized for the study. A dose lowering technique was utilized adhering to the principles of ALARA. COMPARISON: CT September 22, 2021 FINDINGS: Lung bases: Unremarkable. No mass. No consolidation. ABDOMEN: Liver: Unremarkable. Gallbladder and bile ducts: Small gallstones. No gallbladder wall thickening or surrounding edema or fluid. No ductal dilation. Pancreas: Unremarkable. No ductal dilation. Spleen: Unremarkable. No splenomegaly. Adrenals: Unremarkable. No mass. Kidneys and ureters: Strandy densities in the perinephric fat bilaterally are stable. No urinary tract calculus or obstruction. Stomach and bowel: Unremarkable. No obstruction. No mucosal thickening. PELVIS: Appendix: No findings to suggest acute appendicitis. Bladder: Unremarkable. No stones. Reproductive: Unremarkable as visualized. ABDOMEN and PELVIS: Intraperitoneal space: Unremarkable. No free air. No significant fluid collection. Bones/joints: No acute fracture. No dislocation. Soft tissues: Unremarkable. Vasculature: Unremarkable. No abdominal aortic aneurysm. Lymph nodes: Unremarkable. No enlarged lymph nodes. IMPRESSION: No acute findings in the abdomen or pelvis. Electronically signed by: Macario Cortez MD 08/21/23 07:28 AM
[2023-08-21] MEDS: VALSARTAN/SACUBITRIL 26/24MG TAB PO SCH (09:49)
[2023-08-21] MEDS: METOPROLOL SUCC 50MG EXT REL TAB PO SCH (09:49)
[2023-08-21 09:51] LABS: C Reactive Protein 29.06 mg/dl (0-0.5); Uric Acid 11.4 mg/dl (2.6-7.2)
[2023-08-21] MEDS: EZETIMIBE 10 MG TAB PO SCH (10:35)
[2023-08-21] MEDS: CYANOCOBALAMIN (B-12) 500 MCG TABLET PO SCH (10:35)
[2023-08-21] MEDS: FLUTICASONE/VILANTEROL 200/25MCG 14 PUFFS/INHALER INH SCH (10:35)
[2023-08-21] MEDS: ATORVASTATIN 40 MG TAB PO SCH (10:35)
[2023-08-21] MEDS: ADVANCED PROBIOTIC 1250 MG CAPSULE PO SCH (10:35)
[2023-08-21] MEDS: CEROVITE ADV FORMULA TAB PO SCH (10:36)
[2023-08-21 10:58] LABS: C Reactive Protein 27.08 mg/dl (0-0.5); Uric Acid 11.8 mg/dl (2.6-7.2)
--- NOTE | 2023-08-21 11:38 | XRay Report ---
XR ankle RT min 3V routine CLINICAL HISTORY: Joint pain (medial malleoli) swelling, erythema COMPARISON: None FINDINGS: Alignment of the right ankle is anatomic. There is no acute fracture. There are no osseous lesions. No erosions are identified to suggest acute osteomyelitis. There is mild urothelial ankle s oft tissue swelling. Irregularity of the medial malleolus is chronic. There is extensive vascular priyanka cification. Posterior and plantar calcaneal spurs are incidentally noted. Mild tibiotalar and subtala r joint osteoarthritis. IMPRESSION: 1. No acute fractures within the right ankle. 2. Medial ankle soft tissue swelling. 3. Mild tibiotalar and subtalar joint osteoarthritis. ACT 112: Negative or not required by law. Electronically signed by: Kael Bryson M.D. 08/21/2023 11:37 AM
[2023-08-21 12:32] LABS: Hematocrit (blood only) 31.9 % (42.0-52.0); Hemoglobin 10.5 g/dl (14.0-18.0)
[2023-08-21] MEDS: POTASSIUM CHLORIDE CRTAB 20 MEQ TABCR PO ONE (12:36)
--- NOTE | 2023-08-21 14:21 | Hospitalist Progress Note ---
Date of Service August 21, 2023 Assessment & Plan (1) Fluid retention: Plan: 63-year-old male with PMH of chronic systolic heart failure secondary to nonischemic CM [EF 35 to 40%, TTE 2021], s/p biventricular ICD/PPM, PAF on Eliquis, chronic LBBB, nonobstructive CAD, history of infective endocarditis, HTN, HLD, small airway disease, ZOFIA on CPAP, T2DM insulin requiring, CKD [baseline creatinine 1.7 to 2], chronic anemia [baseline hemoglobin 10-11], GERD [patient sees [facility] for PCP services since January 2023] presented with complaint of BLE swelling for about a week CONTACT [employer] without chest pain or shortness of breath. Reported weight gain of about 5 pounds, reported compliance with home diuretic regimen, home diuretic regimen was recently increased by PCP as an outpatient and requested cardiology follow-up visit. Patient presented because of persistent fluid retention in the leg. Patient also has indigestion symptoms. Patient had an episode of bloody emesis at ED. He is being managed for the following: Right ankle swelling/erythema Concern of cellulitis versus arthritis/gouty Patient presented with BLE swelling right greater than left and inability to weight-bear on the right. Patient denies any chest pain or shortness of breath. Patient denies any febrile illness or history of gouty arthritis in the past. Right ankle x-ray with no acute fractures, suggestive of medial ankle soft tissue swelling. Mild joint arthritis noted. ESR elevated at 91, CRP elevated at 27. WBC also elevated at presentation at 11.49 K. 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 aspiration joint for synovial fluid analysis for gouty arthritis. Cefazolin 08/21, follow improvement. Hematemesis: Noted in the ED, patient has history of GERD. Aspirin and Eliquis on hold. GI evaluated, diet today, n.p.o. midnight for further GI evaluation tomorrow. Monitor H&H. Transfuse for symptomatic anemia or hemoglobin less than 8. c/w PPI. BLE swelling and concern of CHF exacerbation: CHF exacerbation ruled out, continue home medications including Lasix 80 mg twice daily, Entresto, beta- avinash. Aldactone from 08/22 per cardio. Echo reviewed, EF 35 to 40%, grade 2 diastolic dysfunction. Paroxysmal A-fib: Device interrogation requested per cardiology, patient on 2.5 mg Eliquis twice a day, patient not sure why he is on reduced dose. Standard dose would be 5 mg twice a day which will be continued at discharge. Patient can follow-up with his PCP or cardiology on discharge. Other chronic medical conditions: Continue with/resume home meds as and when able. chronic LBBB hx nonobstructive CAD hypertension, slight elevated at presentation, fairly under control now. hyperlipidemia on statin Rx, continue DM2 insulin requiring, reasonable control as of outpatient hemoglobin A1c of 8.1 last October 2022 GERD, increased heartburn/reflux symptoms at the ER at presentation DVT prophylaxis. SCDs, re- hematemesis. Full code Text document was generated using [employer] voice recognition software. It may contain grammatical or spelling errors. Kindly contact undersigned for clarification of any documentation item in question. Admission and Anticipated Discharge Date Admission Date: August 21, 2023 Subjective Patient was seen and examined at bedside. Patient was lying in bed, on room air, resting comfortably, not in any acute distress. Patient reports right ankle pain, inability to weight-bear, denies any febrile episodes or nausea or vomiting or chest pain or abdominal pain. Patient denies any shortness of breath, denies any new acute event overnight. Physical Exam Physical Exam: GENERAL: Alert and oriented x3. NAD, on RA. HEENT: No pallor, no icterus. Pupils equal, round and reactive to light. Oral mucosa moist. NECK: No JVD, no neck masses. HEART: S1 and S2 heard. Regular rate and rhythm. No murmur, no gallop. RESPIRATORY SYSTEM: Normal AP diameter. No accessory muscle use. No wheezing, no crackles. ABDOMEN: Soft, bowel sounds present, nontender, no distention. CENTRAL NERVOUS SYSTEM: No facial droop. Speech is clear. Obeys simple commands. Moves extremities. EXTREMITIES: No edema, no erythema seen. Rt ankle swelling/erythema noted, some tenderness Results & Data Results & Data Vital Signs (Past 12 Hours) Vital Signs Temp Pulse Pulse Resp BP Pulse Ox O2 Del Method 08/21/23 11:28 36.6 C 55 L 18 136/83 95 Room Air 08/21/23 08:00 101 H 08/21/23 08:00 Room Air 08/21/23 07:26 36.6 C 102 H 18 119/68 94 Room Air 08/21/23 02:53 36.7 C 83 18 151/90 H 93 Room Air
[2023-08-21] MEDS: ceFAZolin 2000MG 2,000 MG/15 ML SYR IV SCH (14:59)
--- NOTE | 2023-08-21 16:52 | Electrocardiogram Report ---
Test Reason : Blood Pressure : / mmHG Vent. Rate : 099 BPM Atrial Rate : 099 BPM P-R Int : 154 ms QRS Dur : 150 ms QT Int : 388 ms P-R-T Axes : 042 011 151 degrees QTc Int : 497 ms Atrial-sensed ventricular-paced rhythm with PVCs Abnormal ECG When compared with ECG of 22-SEP-2021 21:30, Vent. rate has decreased BY 20 BPM Confirmed by Evan Cohen ([id number]) on 08/21/2023 4:52:56 PM Referred By: Jorge Garrett Confirmed By:Xu Cohen
[2023-08-21] MEDS: FUROSEMIDE 80 MG TAB PO SCH (17:18)
--- NOTE | 2023-08-21 18:27 | Orthopedic Consultation ---
Date of Service August 21, 2023 Assessment & Plan (1) Right ankle pain: Right ankle pain acute onset associated with fluid retention. His sed rate and C-reactive protein are elevated along with uric acid. I think this is most consistent with gout. Certainly cellulitis is always concerned but I think that less likely. He has improved clinically some with some mild diuresis. There is no signs of septic arthritis. If anything some mild cellulitis but once again I think this is most consistent with gout. Plan: Bit of a difficult situation in this patient with kidney issues and multiple medical comorbidities. I do think this is gout. I think he benefit from a dose of steroids as and a steroid taper if he can tolerate that from the medical standpoint with his diabetes and kidney disease. Other considerations would be Toradol but once again this could be difficult on his kidneys. I recommend a dose of tapering steroids if possible. Diuresis is appropriate. Will follow him clinically. He can fully weight-bear as tolerated. I think he should be wearing some compression stockings to help with the swelling. Any orthopedic questions can be directed at [phone] History of Present Illness Reason for Consultation: . Right leg pain discomfort swelling. Requesting Physician: . Attending Physician: Vadim Duron MD . Patient is a 63-year-old gentleman with multiple medical comorbidities including atrial fibrillation, obesity, diabetes, hypertension, elevated cholesterol, chronic kidney disease, cardiomyopathy, diabetic neuropathy admitted with fluid retention and ankle pain. He says his ankle pain started on Tuesday. No particular trauma. Insidious onset. Denies any fevers. He is feeling better since has been in the hospital and they have diuresed him some. They describes global ankle pain. Once again no trauma. No fevers. Denies any history of gout. Allergies Allergy/AdvReac Type Severity Reaction Status Date / Time No Known Allergies Allergy Verified 08/20/23 16:50 Home Medications Medication Instructions Recorded Confirmed Type atorvastatin 80 mg tablet 80 mg PO QAM 11/26/19 08/20/23 History bqxqqqww-ouzyqpeo-rljmz acid 400 1 tab PO QAM 11/26/19 08/20/23 History mcg-vit K 20 mcg-lycop 300 mcg tablet (Men's Multivitamin) nitroglycerin 0.4 mg sublingual 0.4 mg sublingual UD PRN Chest Pain 11/26/19 08/20/23 History tablet (Nitrostat) ferrous sulfate 325 mg (65 mg 325 mg PO BID 01/11/20 08/20/23 History iron) tablet (Iron (ferrous sulfate)) furosemide 80 mg tablet 80 mg PO BID 05/01/20 08/20/23 History metoprolol succinate 100 mg 100 mg PO QAM 05/01/20 08/20/23 History tablet,extended release 24 hr pantoprazole 40 mg tablet,delayed 40 mg PO BID 05/01/20 08/20/23 History release tamsulosin 0.4 mg capsule 0.4 mg PO HS 05/01/20 08/20/23 History albuterol sulfate 90 mcg/actuation 2 puff inhalation Q4 PRN 09/22/21 08/20/23 History aerosol inhaler (Ventolin HFA) cough,sob,wheeze dulaglutide 4.5 mg/0.5 mL 4.5 mg subcut WK 09/22/21 08/20/23 History subcutaneous pen injector (Trulicity) ezetimibe 10 mg tablet 10 mg PO QAM 09/22/21 08/20/23 History fluticasone furoate 200 1 ea inhalation QAM 09/22/21 08/20/23 History mcg-vilanterol 25 mcg/dose inhalation powder (Breo Ellipta) insulin glargine 100 unit/mL (3 44 unit subcut HS 09/22/21 08/20/23 History mL) subcutaneous pen (Basaglar KwikPen U-100 Insulin) metformin 500 mg tablet 500 mg PO BID 09/22/21 08/20/23 History sacubitril 24 mg-valsartan 26 mg 1 tab PO BID 09/22/21 08/20/23 History tablet (Entresto) aspirin 81 mg capsule 81 mg PO QAM 11/02/21 08/20/23 History apixaban 2.5 mg tablet (Eliquis) 2.5 mg PO BID 08/20/23 08/20/23 History cyanocobalamin (vitamin B-12) 1,000 mcg PO QAM 08/20/23 08/20/23 History 1,000 mcg tablet (Vitamin B-12) lactobacillus combination no.4 3 3,000 mmu cells PO QAM 08/20/23 08/20/23 History billion cell capsule (Probiotic) Past Med/Surg History Medical History (Updated 08/21/23 @ 18:25 by Edmund Frank MD) Right ankle pain LBBB (left bundle branch block) chronic per [facility] cardio Endocarditis 09/29; "right sided endocarditis" Sleep apnea cpap at night History of recent hospitalization [facility] September 2021 for MSSA sepsis. discharged with PICC line in the right arm and IV abx until 11/14/21 per records. H/O needle biopsy lung (09/2021) at [facility] - inconclusive result Diabetes mellitus, type 2 IDDM Hyperlipidemia ICD (implantable cardioverter-defibrillator) in place meditronic placed 07/2019 Atrial fibrillation no cardioversion Anemia chronic anemia. Hypertension Renal insufficiency follows with PCP Obesity Dyslipidemia Diabetic neuropathy bilateral feet Splenic infarct NICM (nonischemic cardiomyopathy) BiV ICD EF 35-40% 09/24/2021 CHF (congestive heart failure) EF 35-40% 09/24/21 Surgical History S/P PICC central line placement in place Right arm (IV abx treatment until 11/14/21) History of bronchoscopy with lung biopsy S/P cardiac pacemaker procedure replaced 09/16/[address] monroy Status post amputation of toe of left foot History of repair of left rotator cuff History of cardiac cath 2018 @ [facility], no stents History of esophagogastroduodenoscopy (EGD) last done 01/15/2020 [place] teeth extracted Presence of biventricular implantable cardioverter-defibrillator (ICD) Status post amputation of toe of right foot History of colonoscopy Family History Father Heart disease Other No family history of adverse response to anesthesia Social History Smoking Status: Never smoker Second Hand Exposure: No; Do You Dip or Chew Tobacco: No; Hx Alcohol Use: No Hx Substance Use: No Preferred Language: Vietnamese Communication Ability: Effective 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 Physical Exam . Physical examination is a pleasant middle-aged male. He is in no acute distress. Is lying in bed watching a football game. Examination of the right ankle reveals diffuse swelling of mild at best moderate severity. There is a little bit red hue to his ankle and foot. He can dorsiflex and plantarflex his foot. He is diffusely tender around his foot. No real warmth. He is neurologically otherwise intact. Results & Data Results & Data Laboratory Results . White blood cell count slightly elevated 11.34. He is anemic with hemoglobin 10.5. Sed rate is elevated at 91. C-reactive protein also elevated at 27.08. Uric acid markedly elevated 11.8. Diagnostic Findings . X-rays of the ankle reviewed. It shows some mild arthritic change. Got calcification of his vessels. No signs of fracture or deformity. PG Care Time/CCT Total # of Minutes Spent Total Time Spent with Patient: Total time spent is greater than 50% in coordination of care (as documented) at patient's floor/unit and/or counseling patient: Coding Level of Care Code 29168 IN/OBS CONSULT LVL 4,60M Diagnoses Right ankle pain M25.571
[2023-08-22] MEDS: oxyCODONE HCL IR 5 MG TAB (IMMEDIATE RELEASE) PO STA (01:34)
[2023-08-22 04:54] LABS: Hematocrit (blood only) 30.9 % (42.0-52.0); Hemoglobin 10.1 g/dl (14.0-18.0); Mean Corpuscular Hemoglobin 28.1 pg (25.0-34.0); Mean Corpuscular Hgb Conc 32.7 g/dL (32.0-36.0); Mean Corpuscular Volume 85.8 fL (80.0-100.0); Platelet Count 270 K/uL (130-400); RDW Coefficient of Variation 14.1 % (11.5-14.5); White Blood Count 9.87 K/ul (4.8-10.8)
[2023-08-22 05:14] LABS: Calcium 8.7 mg/dl (8.6-10.3); Creatinine Clr Calc Pharmacy 56.4 ml/min; Est GFR (African American) 43.4 ml/min; Est GFR (Non-African American) 37.5 ml/min; Magnesium 2.1 mg/dl (1.7-2.4); Phosphorus 3.9 mg/dl (2.5-4.9); Potassium 3.9 mmol/L (3.5-5.1)
--- NOTE | 2023-08-22 07:57 | XRay Report ---
XR knee RT 1 or 2V routine CLINICAL HISTORY: swelling TECHNIQUE: 2 views of the right knee were obtained. Comparison: None available at the time of this dictation. FINDINGS: There is no evidence of an acute fracture. Mild degenerative changes are seen with osteophyte formati on. No joint effusion is seen. Soft tissue swelling is seen about the knee. IMPRESSION: Soft tissue swelling without evidence of underlying bony abnormality. ACT 112: Negative or not required by law. Electronically signed by: Arnold Almodovar M.D. 08/22/2023 7:56 AM
[2023-08-22] MEDS: SPIRONOLACTONE 12.5 MG TAB PO SCH (08:16)
--- NOTE | 2023-08-22 10:05 | Cardiology Progress Note ---
Date of Service August 22, 2023 Assessment & Plan (1) Right leg swelling: (2) Hematemesis: (3) Fluid retention: (4) NICM (nonischemic cardiomyopathy): (5) PAF (paroxysmal atrial fibrillation): (6) CAD (coronary artery disease): Plan Right lower extremity swelling, pain, erythema. History and evaluation most consistent with acute gouty attack. As per hospitalist Hematemesis. Aspirin and Eliquis currently on hold. Patient n.p.o. for possible EGD today. Resume aspirin and Eliquis when determined to be safe. Appropriate Eliquis dosing is 5 mg twice per day. Nonischemic cardiomyopathy. Status post biventricular pacemaker implantation. Volume status is normovolemic. Continue prior to arrival guideline directed medical therapy including metoprolol succinate, Entresto, spironolactone, furosemide, Jardiance Nonobstructive CAD. October 27, 2020 coronary angiography with a mildly diseased LAD, otherwise diffuse luminal irregularities. Resume low-dose aspirin when determined to be safe. Continue statin. Continue beta-avinash. Patient asymptomatic. Continue medical management. History of paroxysmal atrial fibrillation. Device interrogation on June 28 and on August 21 without atrial fibrillation, demonstrating appropriate function, adequate battery reserve. Hypertension. Blood pressure adequately controlled. Dyslipidemia. Continue atorvastatin 80 mg/day. Moderate obstructive sleep apnea and nocturnal hypoxemia. Continue CPAP therapy. Admission and Anticipated Discharge Date Admission Date: August 21, 2023 Supervising Physician Co-Signing Physician Notes I have reviewed the advance practitioner's documentation, and I agree with, and take responsibility for the plan of care. Patient seen and examined personally. No acute complaints. No signs of active bleeding Volume status appears normovolemic on exam No cardiac complaints or arrhythmias Plan as outlined above Subjective Patient seen and examined. Chart, medications, and telemetry reviewed. N.p.o. for possible EGD Ongoing right ankle pain. Now with right knee pain. Notes difficulty bearing weight, requiring the use of a walker. Laying flat without cough, chest congestion, orthopnea, or PND. No left lower extremity peripheral edema. Denies abdominal bloating/distention or penile/scrotal edema. Denies chest pain. No palpitations. Telemetry: Paced in the 80s and 90s. Review of Systems Review of Systems: Complete review of systems is otherwise as stated above, negative, or noncontributory Physical Exam Physical Exam: General: No acute distress. Comfortable, cooperative. Lying supine in the hospital bed Skin: Right lower extremity erythema around the right medial malleolus. No overt embolic phenomenon on either the lower or upper extremities. Eyes: PER. Conjunctiva pink, sclera clear. HENT: Normocephalic. Atraumatic. Neck: No carotid bruits. No JVD. Heart: Regular rate 84 bpm. Grade 2 systolic ejection murmur. No diastolic murmur. No rub. Lungs: Clear to auscultation Abdomen: +BS. Soft. Nontender. No masses. No organomegaly. Extremities: No edema on the left lower extremity. Status post amputation of the second toe on the left lower extremity. Mild nonpitting right lower extremity peripheral edema. The distal right lower extremity is erythematous, tender to palpation around and distal to the medial malleoli. No clubbing. No cyanosis. Pulses: radial=2/4, posterior tibial=0/4. Limited neurological examination: No focal deficit. Results & Data Vital Signs (Past 12 Hours) Vital Signs Temp Pulse Resp BP BP Pulse Ox O2 Del Method 08/22/23 07:40 36.8 C 89 17 112/74 95 CPAP 08/22/23 03:23 36.7 C 83 20 120/72 93 Room Air 08/21/23 23:05 36.7 C 95 H 20 138/84 96 Room Air Laboratory Results CBC 08/21/23 08/22/23 Range/Units 12:05 04:19 WBC 9.87 (4.8-10.8) K/ul RBC 3.60 L (4.70-6.10) M/uL Hgb 10.5 L 10.1 L (14.0-18.0) g/dl Hct 31.9 L 30.9 L (42.0-52.0) % Plt Count 270 (130-400) K/uL Comprehensive Metabolic Panel 08/22/23 Range/Units 04:19 Sodium 138 (136-145) mmol/L Potassium 3.9 (3.5-5.1) mmol/L Chloride 104 (98-107) mmol/L Carbon Dioxide 26 (21-32) mmol/L BUN 53 H (6-23) mg/dl Creatinine 1.89 H (0.6-1.4) mg/dl Glucose 164 H (70-99(Fasting)) mg/dl Calcium 8.7 (8.6-10.3) mg/dl Intake and Output 08/21/23 08/22/23 08/22/23 22:59 06:59 14:59 Intake Total 1190 / 1730 340 / 1730 100 / 100 Output Total 600 / 2049 1450 / 0 Balance 590 / -320 -1110 / -320 100 / 100 Intake: IV 190 / 490 100 / 490 100 / 100 PANTOprazole 40 mg In Dextrose 190 / 490 100 / 490 100 / 100 5% Mini-B 100 ml @ 8 MG/HR 20 mls/hr IV Q5H [facility] Rx#:[id number] Oral 1000 / 1240 240 / 1240 Output: Urine 0 [id number] Other: Other Intake Source NPO Weight 122.5 kg Weight Measurement Method Standing Scale
--- NOTE | 2023-08-22 11:22 | Gastroenterology Progress Note ---
Date of Service August 22, 2023 Assessment & Plan (1) Chronic disease anemia: Plan: Chronic anemia; question of hematemesis x 1 w pt report of small flecks which does not sound like a significant volume it if was blood. Hb is stable - similar to OP baseline. Plan He has previously undergone EGD/Colonoscopy for his anemia and no significant change in his indices, no GI symptoms other than this one questionable episode of hematemesis. Would defer IP EGD. Would defer repeating OP EGD/colonoscopy to cardiology and primary OP provider. At any rate, no urgent indication. Regular consistency diet. GI will sign off. Admission and Anticipated Discharge Date Admission Date: August 21, 2023 Supervising Physician Co-Signing Physician Notes I have seen and examined the patient and agree with PE and plan as documented. No further reports of a gi bleed- isolated ? reports hematemesis yesterday that has not persisted. Given no active signs of a gi bleed, agree with outpatient workup and further plan of care as documented. Subjective 63 yr old male w a hx of CAD/CHF, HTN, sleep Apnea, chronic anemia (underwent EGD, Colonoscopy for the anemia w/o cause on endoscopy in 2019) who was admitted on 08/21 for ankle pain/edema thought to be gout, improving. While here he experienced one episode of emesis w "red flecks." Hb 11.7 on arrival 2 days ago -> 10.1 today. BUN is 53/Cr 1.89 but he has CKD 3 (eGFR <30s on OP labs). Pt denies any abd pain, N/V or recent GERD symptoms. He is maintained on low dose ASA. No further anticoag/antiplatets. He is on po iron. Review of Systems Review of Systems: ROS: Gen: Denies weakness, fevers, weight loss Eyes: No eye redness, or pain, no recent vision changes Resp: No SOB, no cough Cardio: No palpitations/irregular beats, no chest pain, + mild lower leg edema GI: As per HPI, otherwise (-) : Denies pain on urination Skin: No jaundice, itching or new rashes M/S as per HPI otherwise (-) Physical Exam Constitutional: WD/WN, vitals as above Eyes: PERRL, conjunctivae normal, anicteric sclerae ENMT: external ear and nose normal, oropharynx normal Neck: trachea midline, no thyromegaly Respiratory: normal respiratory effort, lungs clear to auscultation Cardiovascular: Rate/Rhythm: regular rate and regular rhythm mild bilat lower leg edema, non pitting. Gastrointestinal (Abdomen): normal bowel sounds, soft, nontender, no hepatosplenomegaly Musculoskeletal: Rt ankle tenderness on palpation; no redness Skin: no rashes, warm and dry Neurologic: PERRL, EOMI, accommodation nl, no face palsy, no dysarthria Psychiatric: A+Ox3, euthymic affect Lymphatic: no cervical or axillary lymphadenopathy Results & Data Vital Signs (Past 12 Hours) Vital Signs Temp Pulse Resp BP Pulse Ox O2 Del Method 08/22/23 08:30 Room Air, BiPAP 08/22/23 07:40 36.8 C 89 17 112/74 95 CPAP 08/22/23 03:23 36.7 C 83 20 120/72 93 Room Air Laboratory Results WBC 9, Hb 10, Hct 30, Plts 270, PT 10. INR 1.21, Na 138, K 3.9, Cl 104, CO2 26, BUN 53, Cr 1.89. Diagnostic Findings Non contrast CTAP 08/22/23: No acute findings in the abdomen or pelvis.
[2023-08-22] MEDS: predniSONE 20 MG TAB PO SCH (14:28)
--- NOTE | 2023-08-22 16:07 | Hospitalist Progress Note ---
Date of Service August 22, 2023 Assessment & Plan (1) Right ankle pain: Plan 63-year-old male with PMH of chronic systolic heart failure secondary to nonischemic CM [EF 35 to 40%, TTE 2021], s/p biventricular ICD/PPM, PAF on Eliquis, chronic LBBB, nonobstructive CAD, history of infective endocarditis, HTN, HLD, small airway disease, ZOFIA on CPAP, T2DM insulin requiring, CKD [ baseline creatinine 1.7 to 2], chronic anemia [baseline hemoglobin 10-11], GERD [patient sees [facility] for PCP services since January 2023] presented with complaint of BLE swelling for about a week [employer]NAL [employer] without chest pain or shortness of breath. Reported weight gain of about 5 pounds, reported compliance with home diuretic regimen, home diuretic regimen was recently increased by PCP as an outpatient and requested cardiology follow-up visit. Patient presented because of per sistent fluid retention in the leg. Patient also has indigestion symptoms. Patient had an episode of bloody emesis at ED. He is being managed for the following: Right ankle swelling/erythema Concern of cellulitis versus arthritis/gouty Patient presented with BLE swelling right greater than left and inability to weight-bear on the right. Patient denies any chest pain or shortness of breath. Patient denies any febrile illness or history of gouty arthritis in the past. Right ankle x-ray with no acute fractures, suggestive of medial ankle soft tissue swelling. Mild joint arthritis noted. Patient had right knee pain on 08/22, right knee x-ray with soft tissue swelling without acute bony abnormality. At presentation, ESR elevated at 91, CRP elevated at 27. WBC also elevated at presentation at 11.49 K. Initially patient was being treated in the line of cellulitis, given pain for about a week prior to arrival. Orthopedic evaluated, recommends treatment for gout. Continue antibiotic, steroids started 09/19, pantoprazole twice daily for the duration of steroid. Cefazolin 08/21, follow improvement. Hematemesis: Noted in the ED, patient has history of GERD. Aspirin and Eliquis was on hold. GI evaluated, diet resumed, further evaluation as an outpatient. Discussed with GI 08/22, okay to resume Eliquis and aspirin. Monitor H&H. c/w PPI. BLE swelling and concern of CHF exacerbation: CHF exacerbation ruled out, continue home medications including Lasix 80 mg twice daily, Entresto, beta- avinash. Aldactone from 08/22 per cardio. Echo reviewed, EF 35 to 40%, grade 2 diastolic dysfunction. Paroxysmal A-fib: Device interrogation requested per cardiology, patient on 2.5 mg Eliquis twice a day, patient not sure why he is on reduced dose. Standard dose would be 5 mg twice a day which will be what he will be started on 08/22. Patient can follow-up with his PCP or cardiology on discharge. Other chronic medical conditions: Continue with/resume home meds as and when able. chronic LBBB hx nonobstructive CAD hypertension, slight elevated at presentation, fairly under control now. hyperlipidemia on statin Rx, continue DM2 insulin requiring, reasonable control as of outpatient hemoglobin A1c of 8.1 last October 2022 GERD, increased heartburn/reflux symptoms at the ER at presentation DVT prophylaxis. on eliquis Full code Text document was generated using [employer] voice recognition software. It may contain grammatical or spelling errors. Kindly contact undersigned for clarification of any documentation item in question. Admission and Anticipated Discharge Date Admission Date: August 21, 2023 Subjective Patient was seen and examined at bedside. Patient was lying in bed, on room air, resting comfortably, not in any acute distress. Patient reports right ankle pain getting better but he has right knee pain today, x-ray with soft tissue swelling but no acute bony findings. DEnies any febrile episodes or nausea or vomiting or chest pain or abdominal pain. Patient denies any shortness of breath. Reports no further episodes of hematemesis, discussed regarding use of steroid for possible gout, he is aware that steroid might exacerbate his GERD symptoms and possibly can give GI ulcer/further bleeding, he understands the risks and is agreeable to utilizing steroid. Will be putting him on pantoprazole twice daily while on the steroid. Discussed with GI, agrees with the plan. Discussed with orthopedic, no plan for intra-articular steroid injection and hence going for systemic steroid. Also discussed with GI regarding resuming his anticoagulation, okay to resume. Will closely monitor his H&H and likely pt will stay here for next 1 to 2 days. Physical Exam Physical Exam: GENERAL: Alert and oriented x3. NAD, on RA. HEENT: No pallor, no icterus. Pupils equal, round and reactive to light. Oral mucosa moist. NECK: No JVD, no neck masses. HEART: S1 and S2 heard. Regular rate and rhythm. No murmur, no gallop. RESPIRATORY SYSTEM: Normal AP diameter. No accessory muscle use. No wheezing, no crackles. ABDOMEN: Soft, bowel sounds present, nontender, no distention. CENTRAL NERVOUS SYSTEM: No facial droop. Speech is clear. Obeys simple commands. Moves extremities. EXTREMITIES: No edema. Rt ankle swelling/erythema noted, some tenderness. Rt knee tenderness/no erythema. Results & Data Results & Data Vital Signs (Past 12 Hours) Vital Signs Temp Pulse Resp BP Pulse Ox O2 Del Method 08/22/23 15:59 Room Air 08/22/23 12:48 37.2 C 90 18 143/77 H 98 Room Air 08/22/23 08:30 Room Air, BiPAP 08/22/23 07:40 36.8 C 89 17 112/74 95 CPAP
[2023-08-22] MEDS: PANTOprazole 40 MG TAB PO SCH (20:35)
[2023-08-22] MEDS: APIXABAN 5 MG TABLET PO SCH (20:59)
[2023-08-23 06:42] LABS: Hematocrit (blood only) 33.1 % (42.0-52.0); Hemoglobin 10.9 g/dl (14.0-18.0); Mean Corpuscular Hgb Conc 32.9 g/dL (32.0-36.0); Mean Corpuscular Volume 85.1 fL (80.0-100.0); Mean Platelet Volume 9.9 fL (9.4-12.4); Platelet Count 316 K/uL (130-400); RDW Coefficient of Variation 13.8 % (11.5-14.5); RDW Standard Deviation 42.7 fL (36.4-46.3); Red Blood Count 3.89 M/uL (4.70-6.10); White Blood Count 10.51 K/ul (4.8-10.8)
[2023-08-23 07:09] LABS: BUN Creatinine Ratio 33.5 (10-20); Calcium 8.9 mg/dl (8.6-10.3); Creatinine Clr Calc Pharmacy 62.2 ml/min; Est GFR (African American) 49.4 ml/min; Est GFR (Non-African American) 42.6 ml/min; Magnesium 2.1 mg/dl (1.7-2.4); Phosphorus 4.3 mg/dl (2.5-4.9); Potassium 3.9 mmol/L (3.5-5.1)
[2023-08-23] MEDS: ASPIRIN 81 MG ECTAB PO SCH (08:22)
--- NOTE | 2023-08-23 10:32 | Orthopedic Progress Note ---
Date of Service August 23, 2023 Assessment & Plan (1) Right ankle pain: (2) Right knee pain: His ankle seems to be doing better. He has some tenderness over the anterior knee consistent with prepatella bursitis. No redness or significant swelling in the bursa. There is nothing to aspirate at this time. No further management needed for the knee at this time. He is planning on being discharged. He can follow up with orthopedics as needed. Discussed with Dr. Frank. Subjective . 63 year old patient with right ankle pain after fluid retention and possibly gout. He said his ankle feels better, just some stiffness. He has right anterior knee pain for the last couple of days. No injury. He did have some xrays of it yesterday. Review of Systems All systems reviewed & are unremarkable except as noted in HPI & below. Physical Exam .alert and oriented. NAD Right leg: No significant swelling of the ankle. No knee effusion. No significant swelling in the prepatella bursa. No erythema of the right leg. Skin intact. Can do a good straight leg raise. Good range of motion of the knee without pain. He does have some tenderness in the pretalla bursa area. Results & Data Results & Data Laboratory Results . Diagnostic Findings .xrays of the knee reviewed and show no fracture. No knee effusion. PG Care Time/CCT Total # of Minutes Spent Total Time Spent with Patient: Total time spent is greater than 50% in coordination of care (as documented) at patient's floor/unit and/or counseling patient: Coding Diagnoses Right ankle pain M25.571 Right knee pain M25.561
--- NOTE | 2023-08-23 12:16 | Cardiology Progress Note ---
Date of Service August 23, 2023 Assessment & Plan (1) Right leg swelling: (2) Hematemesis: (3) Fluid retention: (4) NICM (nonischemic cardiomyopathy): (5) PAF (paroxysmal atrial fibrillation): (6) CAD (coronary artery disease): Plan Right lower extremity swelling, pain, erythema. History and evaluation most consistent with acute gouty attack. As per Hospitalist Nonischemic cardiomyopathy. Status post biventricular pacemaker implantation. Volume status is normovolemic. Continue prior to arrival guideline directed medical therapy including metoprolol succinate, Entresto, spironolactone, furosemide, Jardiance Nonobstructive CAD. October 27, 2020 coronary angiography with a mildly diseased LAD, otherwise diffuse luminal irregularities. Patient asymptomatic. Continue medical management. Continue beta-avinash and statin. Resume low dose aspirin. History of paroxysmal atrial fibrillation. Device interrogation on June 28 and on August 21 without atrial fibrillation, demonstrating appropriate function, adequate battery reserve. Eliquis resumed, at 5 mg BID. Hypertension. Blood pressure adequately controlled. Dyslipidemia. Continue atorvastatin 80 mg/day. Moderate obstructive sleep apnea and nocturnal hypoxemia. Continue CPAP therapy. Please contact with any questions or concerns. Outpatient cardiology follow-up as scheduled later this month. Admission and Anticipated Discharge Date Admission Date: August 21, 2023 Supervising Physician Co-Signing Physician Notes I have reviewed the advance practitioner's documentation, and I agree with, and take responsibility for the plan of care. Patient seen and examined personally. No acute complaints. No signs of active bleeding Presenting complaint of right foot pain improving Subjective Patient seen and examined. Chart, medications, and telemetry reviewed. Right ankle discomfort has significantly improved. Able to bear weight. Ongoing right knee pain. No cardiopulmonary complaints or concerns. Telemetry: Paced in the 80s and 90s with occasional PVC Review of Systems Review of Systems: Complete review of systems is otherwise as stated above, negative, or noncontrib utory Physical Exam Physical Exam: General: A&Ox3. No acute distress. HENT: Normocephalic. Atraumatic. Neck: No carotid bruits. No JVD. Heart: Regular rate 80 bpm. Grade 2 systolic ejection murmur. No diastolic murmur. No rub. Lungs: Clear to auscultation Abdomen: +BS. Soft. Nontender. No masses. No organomegaly. Extremities: No edema on the left lower extremity. Status post amputation of the second toe on the left lower extremity. Mild nonpitting right lower extremity peripheral edema. Improved erythema. No clubbing. No cyanosis. Pulses: radial=2/4, posterior tibial=0/4. Limited neurological examination: No focal deficit. Results & Data Vital Signs (Past 12 Hours) Vital Signs Temp Pulse Pulse Resp BP BP Pulse Ox 08/23/23 11:13 36.8 C 98 H 18 132/81 98 08/23/23 08:00 88 08/23/23 07:46 36.6 C 87 18 134/84 93 08/23/23 03:58 36.6 C 82 20 175/80 H 92 O2 Del Method 08/23/23 11:13 Room Air 08/23/23 08:00 08/23/23 07:46 Room Air 08/23/23 03:58 Room Air Laboratory Results CBC 08/23/23 Range/Units 05:52 WBC 10.51 (4.8-10.8) K/ul RBC 3.89 L (4.70-6.10) M/uL Hgb 10.9 L (14.0-18.0) g/dl Hct 33.1 L (42.0-52.0) % Plt Count 316 (130-400) K/uL Comprehensive Metabolic Panel 08/23/23 Range/Units 05:52 Sodium 137 (136-145) mmol/L Potassium 3.9 (3.5-5.1) mmol/L Chloride 102 (98-107) mmol/L Carbon Dioxide 22 (21-32) mmol/L BUN 57 H (6-23) mg/dl Creatinine 1.70 H (0.6-1.4) mg/dl Glucose 228 H (70-99(Fasting)) mg/dl Calcium 8.9 (8.6-10.3) mg/dl Intake and Output 08/22/23 08/23/23 08/23/23 22:59 06:59 14:59 Intake Total 675 / 861.333 0 / 861.333 Balance 675 / 861.333 0 861.333 Intake: Oral 675 / 675 0 / 675 Other: # Unmeasured Voids 1 2 Weight 121.1 kg Weight Measurement Method Standing Scale
--- NOTE | 2023-08-23 13:54 | Discharge Summary ---
Date of Service August 23, 2023 Admission HPI Per Admitting Provider History obtained from patient and records. Medical history significant for chronic systolic heart failure secondary to nonischemic cardiomyopathy (EF 35-40%, TTE 2021) status post biventricular ICD/PPM, PAF on Eliquis, chronic LBBB, nonobstructive CAD, history of infective endocarditis, hypertension, hyperlipidemia, small airway disease as per records, ZOFIA on CPAP, possible pulmonary hypertension as per records, DM2 insulin requiring, CRI (baseline creatinine 1.7 to 2), chronic anemia (baseline hemoglobin 12-13), GERD. Last confinement September 2021 for MSSA septicemia secondary to infective endocarditis status post antibiotic Rx. Patient has been going to [facility] for PCP services since January 2023. Unable to see usual [facility] PCP, Dr. Cardoso due to insurance issues. Last week, patient noted increased bilateral leg swelling without chest pain or SOB. Dry cough symptoms the last couple of days. Not sure about sick contacts. Weight gain of about 5 pounds. Compliant with home diuretic regimen. Denies dietary discretion, not on fluid restriction. Denies chest pain, SOB. Compliant with CPAP. PCP increased home diuretic regimen and requested [facility] cardiology follow-up visit. Patient went to ER because of persistent fluid retention. Patient with indigestion symptoms. Denies abdominal pain/black/bloody stools. Denies OTC NSAID intake. 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 Admission Exam Per Admitting Provider GENERAL: Pleasant, obese, no respiratory distress SKIN: Pallor, warm HEENT: Alopecia, pale palpebral conjunctivae, no ptosis, dry buccal mucosa NECK : Supple, short neck, no tenderness CHEST : Decreased breath sounds, occasional expiratory wheezes, no tenderness HEART : RRR, systolic murmur ABDOMEN: Some distention, nontender RECTAL : Intact sphincter, yellow brown stool (FOBT negative) EXTREMITIES : Bilateral LE swelling, no LE tenderness, no other conspicuous deformities noted NEUROLOGIC : Coherent, no facial asymmetry, no other gross focality Principal Diagnosis Right ankle swelling/erythema Concern of cellulitis versus gout attack Questionable hematemesis x 1 History of paroxysmal A-fib Discharge Exam GENERAL: Alert and oriented x3. NAD, on RA. HEENT: No pallor, no icterus. Pupils equal, round and reactive to light. Oral mucosa moist. NECK: No JVD, no neck masses. HEART: S1 and S2 heard. Regular rate and rhythm. No murmur, no gallop. RESPIRATORY SYSTEM: Normal AP diameter. No accessory muscle use. No wheezing, no crackles. ABDOMEN: Soft, bowel sounds present, nontender, no distention. CENTRAL NERVOUS SYSTEM: No facial droop. Speech is clear. Obeys simple commands. Moves extremities. EXTREMITIES: No edema. Rt ankle swelling/erythema noted, some tenderness. Rt knee tenderness/no erythema. Discharge Data Allergies Allergy/AdvReac Type Severity Reaction Status Date / Time No Known Allergies Allergy Verified 08/20/23 16:50 Consultations 08/20/23 19:27 ED Decision to Admit Stat 08/21/23 00:01 Consult Cardiology Routine 08/21/23 02:09 Consult Gastroenterology Routine 08/21/23 14:14 Consult Orthopedic Surgery Routine Ordered Studies 08/20/23 16:20 US venous doppler LE RT Stat 08/21/23 02:05 CT abd pelvis wo con Stat Hospital Course (1) Right ankle pain: Plan 63-year-old male with PMH of chronic systolic heart failure secondary to nonischemic CM [EF 35 to 40%, TTE 2021], s/p biventricular ICD/PPM, PAF on Eliquis, chronic LBBB, nonobstructive CAD, history of infective endocarditis, HTN, HLD, small airway disease, ZOFIA on CPAP, T2DM insulin requiring, CKD [ baseline creatinine 1.7 to 2], chronic anemia [baseline hemoglobin 10-11], GERD [patient sees [facility] for PCP services since January 2023] 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 Reported weight gain of about 5 pounds, reported compliance with home diuretic regimen, home diuretic regimen was recently increased by PCP as an outpatient and requested cardiology follow-up visit. Patient presented because of persistent fluid retention in the leg. Patient also has indigestion symptoms. Patient had an episode of bloody emesis at ED. He was managed for the following: Right ankle swelling/erythema Concern of cellulitis versus arthritis/gouty Patient presented with BLE swelling right greater than left and inability to weight-bear on the right. Patient denies any chest pain or shortness of breath. Patient denies any febrile illness or history of gouty arthritis in the past. Right ankle x-ray with no acute fractures, suggestive of medial ankle soft tissue swelling. Mild joint arthritis noted. Patient had right knee pain on 08/22, right knee x-ray with soft tissue swelling without acute bony abnormality. At presentation, ESR elevated at 91, CRP elevated at 27. WBC also elevated at presentation at 11.49 K. Initially patient was being treated in the line of cellulitis, given pain for about a week prior to arrival. Orthopedic evaluated, recommends treatment for gout. Continue antibiotic, steroids started 09/19, pantoprazole twice daily for the duration of steroid. Right ankle and knee pain improving, will taper down his steroids over the course of 10 days. Follow-up with PCP and orthopedics upon discharge. Hematemesis: Noted in the ED, patient has history of GERD. Aspirin and Eliquis was on hold. GI evaluated, diet resumed, further evaluation as an outpatient. Discussed with GI 08/22, okay to resume Eliquis and aspirin. Monitor H&H. c/w PPI. No further issues while in hospital. BLE swelling and concern of CHF exacerbation: CHF exacerbation ruled out, c ontinue home medications including Lasix 80 mg twice daily, Entresto, beta- avinash. Aldactone from 08/22 per cardio. Echo reviewed, EF 35 to 40%, grade 2 diastolic dysfunction. Follow-up with cardiology as prior. Paroxysmal A-fib: Device interrogation requested per cardiology, patient on 2.5 mg Eliquis twice a day, patient not sure why he is on reduced dose. Standard do se would be 5 mg twice a day which will be what he will be started on 08/22. Patient can follow-up with his PCP or cardiology on discharge. Other chronic medical conditions: Continue with/resume home meds as and when able. chronic LBBB hx nonobstructive CAD hypertension, slight elevated at presentation, fairly under control now. hyperlipidemia on statin Rx, continue DM2 insulin requiring, reasonable control as of outpatient hemoglobin A1c of 8.1 last October 2022 GERD, increased heartburn/reflux symptoms at the ER at presentation DVT prophylaxis. on eliquis Full code Patient is being discharged to home with following instruction at the point of discharge: Follow-up with your primary care physician within a week time and likely you gordon l need labs CBC/CMP/magnesium/phosphorus. You will be discharged on antibiotic to complete course for concern of right ankle cellulitis. For concern of gout attack, you will be discharged on a steroid. It will be tapered down over 7 to 10 days. Follow-up with orthopedics in 1-2 weeks upon discharge if continuing joint pain. Coordinate with the PCP office to set up the referral. Please take your pantoprazole twice a day, do not miss the medication as steroid can give you/exacerbate your acid peptic disease as discussed at the bedside. For concern of gout, encouraged to avoid red meat/alcohol/tomato/beans. If you have any blood in the vomitus or increasing burning sensation in abdomen, contact your primary care physician office or emergency. Follow-up with your cardiology as prior. Take your medications as prescribed. Please make sure that you are able to get your medications today by calling your pharmacy before you leave the hospital so that your treatment continuity is not broken. Text document was generated using [employer] voice recognition software. It may contain grammatical or spelling errors. Kindly contact undersigned for clarification of any documentation item in question. Home Health Attestation I certify that this patient is under my care and that I, or a physicians assistant refinery operator working with me, had a face to-face encounter that meets the home health oibr-rf-mach encounter requirements with this patient. The encounter with the patient was in whole, or in part, for the following medical condition, which is the primary reason for home health care (list medical condition): I certify that, based on my findings, the following services are medically necessary home health services: My clinical findings support the need for the above services because: Further, I certify that my clinical findings support that this patient is homebound (i.e. absences from home require considerable and taxing effort and are for medical reasons or rastafari services or infrequently or of short duration when for other reasons) because: Certification for Home Health Services: Based on the above findings, I certify that this patient is confined to the home and needs intermittent senior care care, physical therapy and/or speech therapy or continues to need occupational therapy. The patient is under my care, and I have initiated the establishment of the plan of care. This patient will be followed by a physician who will periodically review the plan of care. Total Time Total Time Spent Total Time Spent (In Minutes): 45 Discharge Plan Discharge Items Patient Disposition: Home - Self-Care Reason For Visit: FLUID RETENTION POSS CHF Discharge Diagnosis: Right ankle swelling/erythema Concern of cellulitis versus gout attack Questionable hematemesis x 1 History of paroxysmal A-fib Activity: Resume your previous activity Non-emergency contact: Primary Care Provider Call non-emergency contact if: you have any medication questions, your symptoms worsen and your temperature is above 101.5 Follow-up/Referrals: Alonso Forbes DO [Production Line Welder] - (Date & Time 09/02/2023 11:00 AM Provider Alonso Forbes DO Department Cardiology, [facility] ) Jorge Garrett MD [Primary Care Provider] - (Please schedule an appointment with Dr Garrett at [facility] for hospital follow up.) Diet: Carb Count or DM1 and Heart Healthy Addtl Attending Provider Instructions: Follow-up with your primary care physician within a week time and likely you will need labs CBC/CMP/magnesium/phosphorus. You will be discharged on antibiotic to complete course for concern of right ankle cellulitis. For concern of gout attack, you will be discharged on a steroid. It will be tapered down over 7 to 10 days. Follow-up with orthopedics in 1-2 weeks upon discharge if continuing joint pain. Coordinate with the PCP office to set up the referral. Please take your pantoprazole twice a day, do not miss the medication as steroid can give you/exacerbate your acid peptic disease as discussed at the bedside. For concern of gout, encouraged to avoid red meat/alcohol/tomato/beans. If you have any blood in the vomitus or increasing burning sensation in abdomen, contact your primary care physician office or emergency. Follow-up with your cardiology as prior. Take your medications as prescribed. Please make sure that you are able to get your medications today by calling your pharmacy before you leave the hospital so that your treatment continuity is not broken. Pending Studies at Discharge: Yes Stand-Alone Forms: My Trend[employer], Smoking Cessation Medications and DC Order Prescriptions: New spironolactone 25 mg Tablet 12.5 mg PO DAILY Qty: 15 0RF Eliquis 5 mg Tablet 5 mg PO BID Qty: 60 0RF prednisone 10 mg tablet 10 mg PO DIRECTED 10 Days Qty: 27 0RF Rx Instructions: 40 mg daily x 3 days, then 30 mg daily x 3 days, then 20 mg daily x 2 days, then 10 mg daily x2 days and stop. cephalexin 500 mg tablet 500 mg PO TID 4 Days Qty: 12 0RF Continued atorvastatin 80 mg tablet 80 mg PO QAM nitroglycerin [Nitrostat] 0.4 mg Tablet, Sublingual 0.4 mg sublingual UD PRN (Reason: Chest Pain) Men's Multivitamin 400-20-300 mcg Tablet 1 tab PO QAM ferrous sulfate [Iron (ferrous sulfate)] 325 mg (65 mg iron) Tablet 325 mg PO BID metoprolol succinate 100 mg Tablet Extended Release 24 Hr 100 mg PO QAM tamsulosin 0.4 mg Capsule 0.4 mg PO HS furosemide 80 mg Tablet 80 mg PO BID pantoprazole 40 mg Tablet,Delayed Release (Dr/Ec) 40 mg PO BID metformin 500 mg tablet 500 mg PO BID fluticasone furoate-vilanterol [Breo Ellipta] 200-25 mcg/dose blister with device 1 ea INHALATION QAM albuterol sulfate [Ventolin HFA] 90 mcg/actuation HFA aerosol inhaler 2 puff INHALATION Q4 PRN (Reason: cough,sob,wheeze) insulin glargine [Basaglar KwikPen U-100 Insulin] 100 unit/mL (3 mL) insulin pen 44 unit SUBCUT HS Entresto 24-26 mg tablet 1 tab PO BID Trulicity 4.5 mg/0.5 mL pen injector 4.5 mg SUBCUT WK Rx Instructions: Tuesday ezetimibe 10 mg tablet 10 mg PO QAM aspirin 81 mg capsule 81 mg PO QAM cyanocobalamin (vitamin B-12) [Vitamin B-12] 1,000 mcg Tablet 1,000 mcg PO QAM Probiotic 3 billion cell Capsule 3,000 mmu cells PO QAM Qty: 7 0RF Rx Instructions: administer with a meal Discontinued Eliquis 2.5 mg Tablet 2.5 mg PO BID Discharge Orders: Discharge Order (Routine); Ordered 08/23/23 Ordered By: Vadim Lemus/Other Patient Handouts: Managing Type 2 Diabetes, Special Foot Care for Diabetes Admission Data Admit Date/Time: 08/21/23 03:09 Attending Provider: Vadim Duron Admit Provider: Ronnie Trivedi Primary Care Provider: Jorge Garrett Other Providers: Ronnie Trivedi; Lucy Rdz; Edmund Coleman; Jose Luis Esparza; Alonso Forbes; German Reed; Gunner Michelle; Bernie Munoz; Perla Cardoza; Lucy Valentino; Clemente Trevizo; Jt Leon; Jacqueline Dixon; Jennifer Piper; Erin Landa; Soren Manzano; Julia Gupta; Eugenio Horn; Lottie Martínez; Taylor Bautista; Tamy Gandhi; Lay Alaniz; Mauri Riggs; Shahab Go; Kimber Ellis; Evette Barker; Hebert Mendoza S; Lily Edgar; Cecilia Rolon; Yadira Haile; Dolores Elliott; Luis Enrique Roberts; Ananth Frost; Meng Kline; Lucy Montano; Benjy An Jr; Edmund Frank
== END 2023-08-23 15:55 | disposition home or self-care (01) | DRG 554 ==
LOC: ED 12:34 → 4W 12:34